=== PATIENT | female | born 1945 | race Caucasian/White ===

== ENCOUNTER 2022-10-07 10:56 | Outpatient (OUT) | payer MEDICARE, OTHER, SELFPAY ==
[2022-10-07 12:34] LABS: Alanine Aminotransferase 25 U/L (14-59); Albumin Globulin Ratio 0.9; Albumin Level 3.6 g/dL (3.4-5.0); Alkaline Phosphatase 81 U/L (46-116); Anion Gap 11.7; Aspartate Amino Transferase 23 U/L (15-37); Bilirubin Total 0.4 mg/dL (0.2-1.0); Calcium 9.3 mg/dL (8.5-10.1); Carbon Dioxide 26.5 mmol/L (21.0-32.0); Chloride 104 mmol/L (98-107); Estimated GFR (African America >60 (>=60); Estimated GFR (Non-African Ame 51 (>=60); Globulin 3.8 g/dL; Glucose 104 mg/dL (74-106); Potassium 4.2 mmol/L (3.5-5.1); Sodium 138 mmol/L (136-145); Total Protein 7.4 g/dL (6.4-8.2)
[2022-10-08 11:09] LABS: PTH, Intact 40 pg/mL (15-65)
== END 2022-10-07 10:57 ==
DX: R79.89 Other specified abnormal findings of blood chemistry (principal)
CPT/HCPCS: 36415; 80053; 83970

== ENCOUNTER 2022-11-16 15:54 | Outpatient (OUT) | payer MEDICARE, OTHER, SELFPAY | END 2022-11-16 15:55 | disposition home or self-care (01) | LOC: LAB 15:56 | PROVIDERS: Visit Provider Physician Assistant | DX: G25.81 Restless legs syndrome (principal) | CPT/HCPCS: 36415; 82728 ==

== ENCOUNTER 2022-12-29 11:58 | Outpatient (OUT) | payer MEDICARE, OTHER, SELFPAY ==
[2022-12-29 12:25] LABS: Basophils Absolute Auto 0.1 10^3/uL (0.0-0.1); Basophils Percent Auto 1.1 % (0.2-2.0); Eosinophils Absolute Auto 0.3 10^3/uL (0.0-0.7); Eosinophils Percent Auto 3.8 % (0.9-7.0); Hemoglobin 13.9 g/dL (12.0-16.0); Immature Granulocytes Abs Auto 0.01 10^3/uL (0.00-0.03); Immature Granulocytes Pct Auto 0.2 % (0.0-0.5); Lymphocytes Absolute Auto 1.4 10^3/uL (1.2-3.8); Lymphocytes Percent Auto 21.6 % (20.5-60.0); Mean Corpuscular HGB Conc 32.3 g/dL (29.9-35.2); Mean Corpuscular Hemoglobin 29.6 pg (26.7-34.0); Mean Corpuscular Volume 91.7 fL (81.0-99.0); Mean Platelet Volume 9.6 fL (9.5-13.5); Monocytes Absolute Auto 0.5 10^3/uL (0.3-0.8); Monocytes Percent Auto 7.9 % (1.7-12.0); Neutrophils Absolute Auto 4.3 10^3/uL (1.4-6.5); Neutrophils Percent Auto 65.4 % (43.0-75.0); Platelet Count 368 10^3/uL (150-450); Red Blood Count 4.69 10^6/uL (4.20-5.40); Red Cell Distribution Width 13.1 % (11.0-15.0); White Blood Count 6.6 10^3/uL (4.0-11.0)
[2022-12-29 13:08] LABS: Alanine Aminotransferase 26 U/L (14-59); Albumin Level 3.9 g/dL (3.4-5.0); Alkaline Phosphatase 75 U/L (46-116); Anion Gap 14.5; Aspartate Amino Transferase 21 U/L (15-37); BUN Creatinine Ratio 20.9; Bilirubin Total 0.5 mg/dL (0.2-1.0); Calcium 9.5 mg/dL (8.5-10.1); Carbon Dioxide 26.1 mmol/L (21.0-32.0); Chloride 102 mmol/L (98-107); Chol HDL Ratio 2.7; Cholesterol 165 mg/dL (<=200); Estimated GFR (African America 56 (>=60); Estimated GFR (Non-African Ame 46 (>=60); Globulin 3.9 g/dL; Glucose 98 mg/dL (74-106); HDL Cholesterol 62 mg/dL (40-60); Magnesium 1.7 mg/dL (1.8-2.4); Potassium 4.6 mmol/L (3.5-5.1); Sodium 138 mmol/L (136-145); Thyroid Stimulating Hormone 2.771 uIU/mL (0.358-3.740); Total Protein 7.8 g/dL (6.4-8.2); Triglycerides 147 mg/dL (<=150); VLDL CHOLESTEROL 29.4 mg/dL
[2022-12-29 13:37] LABS: Percent Iron Saturation 35.6 %
[2022-12-29 15:22] LABS: Free T4 0.85 ng/dL (0.76-1.46)
== END 2022-12-29 11:59 | disposition home or self-care (01) ==
LOC: LAB 12:02
DX: E78.00 Pure hypercholesterolemia, unspecified (principal); E03.9 Hypothyroidism, unspecified; K21.9 Gastro-esophageal reflux disease without esophagitis; G25.81 Restless legs syndrome
CPT/HCPCS: 36415; 80053; 80061; 82607; 82728; 82746; 83540; 83550; 83735; 84439; 84443; 85025

== ENCOUNTER 2023-01-16 15:02 | Outpatient (OUT) | payer MEDICARE, OTHER, SELFPAY ==
[2023-01-16 15:41] LABS: Anion Gap 10.8; BUN Creatinine Ratio 21.1; Calcium 9.5 mg/dL (8.5-10.1); Carbon Dioxide 26.9 mmol/L (21.0-32.0); Chloride 103 mmol/L (98-107); Estimated GFR (African America 56 (>=60); Estimated GFR (Non-African Ame 46 (>=60); Glucose 90 mg/dL (74-106); Potassium 4.7 mmol/L (3.5-5.1); Sodium 136 mmol/L (136-145)
[2023-01-17 15:08] LABS: Albumin 3.7 g/dL (2.9-4.4); Alpha-1-Globulin 0.2 g/dL (0.0-0.4); Alpha-2-Globulin 0.8 g/dL (0.4-1.0); Gamma Globulin 1.1 g/dL (0.4-1.8); Protein, Total 6.8 g/dL (6.0-8.5)
== END 2023-01-16 15:03 | disposition home or self-care (01) ==
DX: R79.89 Other specified abnormal findings of blood chemistry (principal)
CPT/HCPCS: 36415; 80048; 84155; 84165

== ENCOUNTER 2023-06-01 10:23 | Outpatient (OUT) | payer MEDICARE, OTHER, SELFPAY ==
[2023-06-01 11:44] LABS: Percent Iron Saturation 31.4 %
[2023-06-01 12:14] LABS: Free T4 0.93 ng/dL (0.76-1.46)
[2023-06-01 12:28] LABS: Anion Gap 13.7; BUN Creatinine Ratio 19.1; Calcium 9.3 mg/dL (8.5-10.1); Carbon Dioxide 27.6 mmol/L (21.0-32.0); Chloride 102 mmol/L (98-107); Estimated GFR (African America 59 (>=60); Estimated GFR (Non-African Ame 48 (>=60); Glucose 105 mg/dL (74-106); Potassium 4.3 mmol/L (3.5-5.1); Sodium 139 mmol/L (136-145); Thyroid Stimulating Hormone 3.974 uIU/mL (0.358-3.740)
[2023-06-01 12:40] LABS: Basophils Absolute Auto 0.1 10^3/uL (0.0-0.1); Basophils Percent Auto 1.2 % (0.2-2.0); Eosinophils Absolute Auto 0.2 10^3/uL (0.0-0.7); Eosinophils Percent Auto 3.5 % (0.9-7.0); Hematocrit 40.2 % (36.0-48.0); Hemoglobin 12.6 g/dL (12.0-16.0); Immature Granulocytes Abs Auto 0.01 10^3/uL (0.00-0.03); Immature Granulocytes Pct Auto 0.1 % (0.0-0.5); Lymphocytes Absolute Auto 1.2 10^3/uL (1.2-3.8); Mean Corpuscular HGB Conc 31.3 g/dL (29.9-35.2); Mean Corpuscular Hemoglobin 29.7 pg (26.7-34.0); Mean Corpuscular Volume 94.8 fL (81.0-99.0); Mean Platelet Volume 9.9 fL (9.5-13.5); Monocytes Absolute Auto 0.6 10^3/uL (0.3-0.8); Monocytes Percent Auto 8.2 % (1.7-12.0); Neutrophils Absolute Auto 4.8 10^3/uL (1.4-6.5); Platelet Count 351 10^3/uL (150-450); Red Blood Count 4.24 10^6/uL (4.20-5.40); Red Cell Distribution Width 13.1 % (11.0-15.0); White Blood Count 6.8 10^3/uL (4.0-11.0)
== END 2023-06-01 10:24 | disposition home or self-care (01) ==
DX: E03.9 Hypothyroidism, unspecified (principal); I10 Essential (primary) hypertension; K21.9 Gastro-esophageal reflux disease without esophagitis; G25.81 Restless legs syndrome
CPT/HCPCS: 36415; 80048; 82607; 82728; 82746; 83540; 83550; 84439; 84443; 85025

== ENCOUNTER 2024-01-03 09:35 | Outpatient (OUT) | payer MEDICARE, OTHER, SELFPAY ==
--- NOTE | 2024-01-03 | CT_ITS ---
The [address] [address] Patient Name: YENNY BESS MRN: [id number] date: 1945 Sex: F Assigned Patient Location: LAB Current Patient Location: Accession/Order Number: [id number] Exam Date: 01/03/2024 10:15 Report Date: 01/04/2024 00:10 At the request of: ADRIAN PURCELL Procedure: CT lumbar spine wo/w con EXAM: CT lumbar spine wo/w con HISTORY: LUMBAR RADICULOPATHY, METASTASIS TO SPINAL COLUMN COMPARISON: 08/11/2021. TECHNIQUE: Axial CT scans of the lumbar spine were obtained without and with IV contrast administration. MPR images were obtained. Dose reduction techniques were achieved by using: automated exposure control and/or adjustment of mA and /or kV according to patient size and/or use of iterative reconstruction technique.. FINDINGS: Lumbar levoscoliosis without segmental anomaly is unchanged, measuring 23 degrees. Decreased disc height with vacuum disc phenomena from L2 to S1 is secondary to disc degeneration. Mild discovertebral complexes from L2 to S1 without central spinal stenosis. Mild to moderate facet arthropathy from L3 to S1. No significant neural foraminal stenosis. Cerebral small radiolucencies in from L2 to L5 vertebral bodies are unchanged. Some of these radiolucencies have fatty density, likely representing focal areas of fatty marrow. A benign hemangioma in L3 vertebral body with coarse trabeculae is unchanged. SI joints appear unremarkable. The visualized retroperitoneum shows no adenopathy. CT/CT lumbar spine wo/w con IMPRESSION: Lumbar levoscoliosis without segmental anomaly is unchanged, measuring 23 degrees. Discovertebral degenerative changes from L2 to S1 without central spinal stenosis or significant neural foraminal stenosis. Mild to moderate facet arthropathy from L3 to S1. Several small radiolucencies from L2 to L5 are unchanged. I am doubtful that these radiolucencies result from metastatic disease. Electronically authenticated by: GERSON AKINS Date: 01/04/2024 00:10
[2024-01-03 10:23] LABS: Estimated GFR (African America 56 (>=60); Estimated GFR (Non-African Ame 46 (>=60)
== END 2024-01-03 09:36 | disposition home or self-care (01) ==
LOC: LAB 09:36
PROVIDERS: Visit Provider Nurse Practitioner Family
DX: M54.16 Radiculopathy, lumbar region (principal); C79.51 Secondary malignant neoplasm of bone; M51.36 Other intervertebral disc degeneration, lumbar region
CPT/HCPCS: 36415; 72133; 82565; 84520; Q9967

== ENCOUNTER 2024-01-22 12:16 | Outpatient (OUT) | payer MEDICARE, OTHER, SELFPAY ==
--- OUTSIDE RECORDS SUMMARY | 2024-01-22 12:39 | XMS_ITS | CCD ---
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 Normal 0.34-5.60 [facility] Comment on above: Performed By: #### 2 673667, 08127763, 6650840, 7687899 ####[facility] [address] [place] [address] eGFRon 03-26-2022 GFR/1.73 sq M.predicted among blacks MDRD (S/P/Bld) [Vol rate/Area] mL/min/{1.73_m2} Normal >=59 [facility] Comment on above: Order Comment: Order added by Discern Expert. Result Comment: eGFR is race adjusted. AA=. Performed By: #### 2 208623, [id number], 1692130, 1347087 ####[facility] [address] [place] [address] GFR/1.73 sq M.predicted among non-blacks MDRD (S/P/Bld) [Vol rate/Area] 54 mL/min/1.73 m2 Low >=59 [facility] Comment on above: Order Comment: Order added by Discern Expert. Result Comment: Patient Transport Officer quan kidney disease could be indicated at eGFR's of less than 60 mL/min/1.73m2. Kidney failure is indicated at less than 15 mL/min/1.73m2. Performed By: #### 2 473771, 94007847, 0010885, 0021527 ####[facility] [address] [place] [address] BMPon 03-25-2022 Anion gap [Moles/Vol] 11 mmol/L Normal 6-16 [facility] Comment on above: Performed By: #### 2 243300, [id number] ####[facility] [address] [place] [address] Calcium [Mass/Vol] 9.7 mg/dL Normal 8.9-11.1 [facility] Comment on above: Performed By: #### 2 243872, 68091105 ####[facility] [address] [place] [address] Chloride [Moles/Vol] 104 mmol/L Normal 101-111 [facility] Comment on above: Performed By: #### 2 261010, 19803903 ####[facility] [address] [place] [address] CO2 [Moles/Vol] 22 mmol/L Normal 21-31 [facility] Comment on above: Performed By: #### 2 826148, 58446770 ####[facility] [address] [place] [address] Creatinine [Mass/Vol] 0.9 mg/dL Normal 0.5-1.3 [facility] Comment on above: Performed By: #### 2 505730, [id number] ####[facility] [address] [place] [address] Glucose [Mass/Vol] 98 mg/dL Normal 55-199 [facility] Comment on above: Result Comment: If t his glucose result represents a fasting glucose, interpretation should refer to the following reference range: 55-99 mg/dL Performed By: #### 2 541095, [id number] ####[facility] [address] [place] [address] Potassium [Moles/Vol] 3.7 mmol/L Normal 3.5-5.3 [facility] Comment on above: Performed By: #### 2 336487, 56038049 ####[facility] [address] [place] [address] Sodium [Moles/Vol] 133 mmol/L Low 135-145 [facility] Comment on above: Performed By: #### 2 331401, 26045284 ####[facility] [address] [place] [address] Urea nitrogen [Mass/Vol] 20 mg/dL Normal 5-21 [facility] Comment on above: Performed By: #### 2 380074, 27866680 ####[facility] [address] [place] [address] Urea nitrogen/Creatinine [Mass ratio] 22 No Units High 10-20 [facility] Comment on above: Performed By: #### 2 723021, [id number] ####[facility] [address] [place] [address] C Blood Charcoalon Blood Culture Charcoal Normal [facility] Comment on above: Performed By: #### 1 1788100 ####[facility] [address] [place] [address] Blood Culture Charcoal Normal [facility] Comment on above: Performed By: #### 1 9552978 ####[facility] [address] [place] [address] C Urineon 03-25-2022 Bacteria identified Cx Nom (U) Normal [facility] Comment on above: Performed By: #### 2 264765, 65384294 ####[facility] [address] [place] [address] CHEMISTRYOrdered By: SYSTEM SYSTEM on 03-25-2022 Calcium [Mass/Vol] 9.7 mg/dL Normal 8.9 - 11. 1 mg/dL [facility] Remisol Creatinine [Mass/Vol] 0.9 mg/dL Normal 0.5 - 1.3 mg/dL [facility] Remisol GFR/1.73 sq M.predicted among blacks MDRD (S/P/Bld) [Vol rate/Area] mL/min/1.73 m2 Normal >=59mL/min/ 1.[address] [facility] Chem S GFR/1.73 sq M.predicted among non-blacks MDRD (S/P/Bld) [Vol rate/Area] mL/min/1.73 m2 Normal >=59mL/min/ 1.[address] [facility] Chem S Glucose [Mass/Vol] 98 mg/dL Normal 55 - 199 mg/dL [facility] Remisol Urea nitrogen [Mass/Vol] 20 mg/dL Normal 5 - 21 mg/dL [facility] Remisol Urea nitrogen/Creatinine [Mass ratio] 22 mg/mg High 10 - [address] [facility] Remisol CT Abdomen/Pelvis w/o Contra ston 03-25-2022 CT Abdomen/Pelvis w/o Contrast Normal [facility] CT Chest w/o Contraston 03-02 CT Chest w/o Contrast Normal [facility] Interdisciplinary Note - Pito e Manageron 03-25-2022 Interdisciplinary Note - Machine Heel Seat Laster Normal [facility] Comment on above: Result Comment: Elec tronically Signed By: Mirela Petersen\.br\Date and Time Signed: 03/25/22 12:34 EST Laboratory - Microbiology an d Antimicrobial susceptibilityOrdered By: Eunice Renee on 03-25-2022 Bacteria identified Respiratory culture Nom (Sput) 1+ Madeleine albicans Presumptive Scant growth of Normal upper respiratory yashira isolated [facility] Monitor Recordon 03-25-2022 Monitor Record [id number]#1.00CD :127 Normal [facility] No Panel InformationOrdered By: Eunice Renee on 03-25-2022 GS Rare epithelial cell s No organisms seen. [facility] Outside Recordson 03-25-2022 Outside Records [id number]#1.00CD :127 Normal [facility] Progress Note-Physicianon Progress Note-Physician Normal [facility] Comment on above: Result Comment: Elec tronically Signed By: Evan Stovall MD\.br\Date and Time Signed: 03/25/22 15:46 EST Progress Note-Physician Normal [facility] Comment on above: Result Comment: Elec tronically Signed By: Carol ORTIZ\.br\Date and Time Signed: 03/25/22 10:27 EST\.br\Electronically Co-Signed By: Saran Dodge MD\.br\Date and Time Co-Signed: 03/25/22 11:15 EST Progress Note-Physician Normal [facility] Comment on above: Result Comment: Elec tronically Signed By: Balbina RICE, Fahad\.br\Date and Time Signed: 03/25/22 07:27 EST Sodiumon 03-25-2022 Sodium [Moles/Vol] 135 mmol/L Normal 135-145 [facility] Comment on above: Performed By: #### 2 205409 ####[facility] [address] [place] [address] Sodium [Moles/Vol] 135 mmol/L Normal 135-145 [facility] Comment on above: Performed By: #### 2 448055 ####[facility] [address] [place] [address] Sodium [Moles/Vol] 132 mmol/L Low 135-145 [facility] Comment on above: Performed By: #### 2 471394 ####[facility] [address] [place] [address] U Legi Agon 03-25-2022 L. pneumophila 1 Ag IA Ql (U) Negative Invalid Interpretation Code Negative [facility] Comment on above: Result Comment: Pres umptive negative for L. pneumophila serogroup 1 antigen in urine,suggesting no recent or current infection. Legionnaires' diseasecannot be ruled out since other serogroups and species may also causedisease.Performed at: [facility] [id number] MD Guevara Lewis Performed By: #### 2 840423 ####[facility] [address] [place] [address] US Renalon 03-25-2022 US Renal Normal [facility] eGFRon 03-25-2022 GFR/1.73 sq M.predicted among blacks MDRD (S/P/Bld) [Vol rate/Area] mL/min/{1.73_m2} Normal >=59 [facility] Comment on above: Order Comment: Order added by Discern Expert. Result Comment: eGFR is race adjusted. AA=. Performed By: #### 2 322774, [id number] ####[facility] [address] [place] [address] GFR/1.73 sq M.predicted among non-blacks MDRD (S/P/Bld) [Vol rate/Area] mL/min/{1.73_m2} Normal >=59 [facility] Comment on above: Order Comment: Order added by Discern Expert. Result Comment: Patient Transport Officer quan kidney disease could be indicated at eGFR's of less than 60 mL/min/1.73m2. Kidney failure is indicated at less than 15 mL/min/1.73m2. Performed By: #### 2 568167, [id number] ####[facility] [address] [place] [address] Auto Diffon 03-24-2022 Basophils/100 WBC (Bld) 0.3 % Normal 0.0-2.0 [facility] Comment on above: Order Comment: Order Added by Discern Expert. Performed By: #### 2 357442, 87555575, 9857263, 9023495 ####[facility] [address] [place] [address] Basophils/Leukocytes Auto (Bld) [Pure # fraction] 0.0 E9/L Normal 0.0-0.2 [facility] Comment on above: Order Comment: Order Added by Discern Expert. Performed By: #### 2 454960, 79161311, 3445643, 0827820 ####[address] [place] [place] [address] Eosinophils/100 WBC (Bld) 0.5 % Normal 0.0-8.0 [facility] Comment on above: Order Comment: Order Added by Discern Expert. Performed By: #### 2 743046, 13595612, 0891521, 7975892 ####[facility] [address] [place] [address] Eosinophils/Leukocytes Auto (Bld) [Pure # fraction] 0.0 E9/L Normal 0.0-0.5 [facility] Comment on above: Order Comment: Order Added by Discern Expert. Performed By: #### 2 185248, 15195809, 8969978, 0896469 ####[facility] [address] [place] [address] Lymphocytes/100 WBC (Bld) 5.3 % Low 14.0-50.0 [facility] Comment on above: Order Comment: Order Added by Discern Expert. Performed By: #### 2 078250, 97758601, 1044319, 8541145 ####[address] [place] [address] Lymphocytes/Leukocytes Auto (Bld) [Pure # fraction] 0.5 E9/L Low 1.0-4.0 [facility] Comment on above: Order Comment: Order Added by Discern Expert. Performed By: #### 2 719606, 62429164, 4068414, 1065198 ####[address] [place] [address] Monocytes/100 WBC (Bld) 8.5 % Normal 4.0-14.0 [facility] Comment on above: Order Comment: Order Added by Discern Expert. Performed By: #### 2 717028, 43678835, 8097116, 2769113 ####[facility] [address] [place] [address] Monocytes/Leukocytes Auto (Bld) [Pure # fraction] 0.8 E9/L Normal 0.2-1.0 [facility] Comment on above: Order Comment: Order Added by Discern Expert. Performed By: #### 2 248771, 05177034, 6674793, 1626490 ####[facility] [address] [place] [address] Neutrophils/100 WBC (Bld) 85.4 % High 36.0-75.0 [facility] Comment on above: Order Comment: Order Added by Discern Expert. Performed By: #### 2 271496, 37196327, 3050830, 5722403 ####[facility] [address] [place] [address] Neutrophils/Leukocytes Auto (Bld) [Pure # fraction] 8.5 E9/L High 2.0-7.5 [facility] Comment on above: Order Comment: Order Added by Discern Expert. Performed By: #### 2 665742, 84208145, 3615904, 8510321 ####[facility] [address] [facility] [place] [place] [address] BMPon 03-24-2022 Anion gap [Moles/Vol] 9 mmol/L Normal 6-16 [facility] Comment on above: Performed By: #### 2 379384, 83748596, 2729968, 8149557 ####[facility] [address] [place] [address] Calcium [Mass/Vol] 9.2 mg/dL Normal 8.9-11.1 [facility] Comment on above: Performed By: #### 2 652923, 55238811, 4009612, 7863329 ####[facility] [address] [place] [address] Chloride [Moles/Vol] 106 mmol/L Normal 101-111 [facility] Comment on above: Performed By: #### 2 884105, 41561435, 3834954, 3274940 ####[facility] [address] [place] [address] CO2 [Moles/Vol] 21 mmol/L Normal 21-31 [facility] Comment on above: Performed By: #### 2 449629, 92013936, 0341895, 4037055 ####[facility] [address] [place] [address] Creatinine [Mass/Vol] 1.0 mg/dL Normal 0.5-1.3 [facility] Comment on above: Performed By: #### 2 459778, 97978288, 9248184, 2712360 ####[facility] [address] [place] [address] Glucose [Mass/Vol] 95 mg/dL Normal 55-199 [facility] Comment on above: Result Comment: If t his glucose result represents a fasting glucose, interpretation should refer to the following reference range: 55-99 mg/dL Performed By: #### 2 833260, 77225920, 5041430, 9448359 ####[facility] [address] [place] [address] Potassium [Moles/Vol] 3.9 mmol/L Normal 3.5-5.3 [facility] Comment on above: Performed By: #### 2 778443, 56951327, 2634460, 7364122 ####[facility] [address] [place] [address] Sodium [Moles/Vol] 132 mmol/L Low 135-145 [facility] Comment on above: Performed By: #### 2 005280, 84399525, 0593733, 4250056 ####[facility] [address] [place] [address] Urea nitrogen [Mass/Vol] 15 mg/dL Normal 5-21 [facility] Comment on above: Performed By: #### 2 896258, 13824710, 3881342, 1177276 ####[facility] [address] [place] [address] Urea nitrogen/Creatinine [Mass ratio] 15 No Units Normal 10-20 [facility] Comment on above: Performed By: #### 2 064157, 44988485, 4518954, 7868632 ####[facility] [address] [place] [address] CBC w/ Auto Diffon 2 Erythrocyte distribution width (RBC) [Ratio] 13.6 % Normal 10.9-14.2 [facility] Comment on above: Performed By: #### 2 306048, 90300470, 0462331, 7721621 ####[facility] [address] [place] [address] Hematocrit (Bld) [Volume fraction] 35.8 % Normal 34.0-46.0 [facility] Comment on above: Performed By: #### 2 122875, 04501590, 3850666, 9328323 ####[facility] [address] [place] [address] Hemoglobin (Bld) [Mass/Vol] 12.2 g/dL Normal 12.0-16.0 [facility] Comment on above: Performed By: #### 2 319334, 27297083, 1439632, 6729260 ####[facility] [address] [place] [address] MCH (RBC) [Entitic mass] 30.3 pg Normal 27.0-34.0 [facility] Comment on above: Performed By: #### 2 831651, 95822735, 9247389, 4705382 ####[facility] [address] [place] [address] MCHC (RBC) [Mass/Vol] 34.1 g/dL Normal 31.4-36.0 [facility] Comment on above: Performed By: #### 2 365620, 80576922, 6447178, 8341363 ####[place] [address] MCV (RBC) [Entitic vol] 89.0 fL Normal 80.0-100.0 [facility] Comment on above: Performed By: #### 2 264286, 45465980, 8594159, 7327994 ####[address] [address] Platelet mean volume (Bld) [Entitic vol] 8.1 fL Normal 6.4-10.8 [facility] Comment on above: Performed By: #### 2 474795, 82512153, 7374856, 8731615 ####[address] [address] Platelets (Bld) [#/Vol] 180.0 E9/L Normal 150.0-500.0 [facility] Comment on above: Performed By: #### 2 657631, 78351109, 9293129, 9088286 ####[address] [address] RBC (Bld) [#/Vol] 4.0 E12/L Low 4.3-5.9 [facility] Comment on above: Performed By: #### 2 994713, 66381548, 5198497, 6188595 ####[facility] [address] [place] [address] WBC corrected for nucl RBC Auto (Bld) [#/Vol] 9.9 E9/L Normal 4.0-11.0 [facility] Comment on above: Performed By: #### 2 303477, 96469781, 9919201, 4141317 ####[facility] [address] [place] [address] HEMATOLOGYOrdered By: SYSTEM SYSTEM on 03-24-2022 Basophils/100 WBC (Bld) 0.3 % Normal 0.0 - 2.0 % [facility]eAuto[facility] Basophils/Leukocytes Auto (Bld) [Pure # fraction] 0.0 E9/L Normal 0.0 - 0.2 E9/L [facility] Eosinophils/100 WBC (Bld) 0.5 % Normal 0.0 - 8.0 % [facility] Eosinophils/Leukocytes Auto (Bld) [Pure # fraction] 0.0 E9/L Normal 0.0 - 0.5 E9/L [facility] Lymphocytes/100 WBC (Bld) 5.3 % Low 14.0 - 50.0 % [facility] Lymphocytes/Leukocytes Auto (Bld) [Pure # fraction] 0.5 E9/L Low 1.0 - 4.0 E9/L [facility] Monocytes/100 WBC (Bld) 8.5 % Normal 4.0 - 14.0 % [facility] Monocytes/Leukocytes Auto (Bld) [Pure # fraction] 0.8 E9/L Normal 0.2 - 1.0 E9/L [facility] Neutrophils/100 WBC (Bld) 85.4 % High 36.0 - 75.0 % [facility] Neutrophils/Leukocytes Auto (Bld) [Pure # fraction] 8.5 E9/L High 2.0 - 7.5 E9/L [facility] HEMATOLOGYOrdered By: Kelsey redding on 03-24-2022 Erythrocyte distribution width (RBC) [Ratio] 13.6 % Normal 10.9 - 14.2 % [facility] Hematocrit (Bld) [Volume fraction] 35.8 % Normal 34.0 - 46.0 % [facility] Hemoglobin (Bld) [Mass/Vol] 12.2 g/dL Normal 12.0 - 16.0 gm/dL [facility] MCH (RBC) [Entitic mass] 30.3 pg Normal 27.0 - 34.0 pg [facility] MCHC (RBC) [Mass/Vol] 34.1 g/dL Normal 31.4 - 36.0 gm/dL [facility] MCV (RBC) [Entitic vol] 89.0 fL Normal 80.0 - 100.0 fL [facility] Platelet mean volume (Bld) [Entitic vol] 8.1 fL Normal 6.4 - 10.8 fL [facility] Platelets (Bld) [#/Vol] 180.0 E9/L Normal 150. 0 - 500.0 E9/L [facility] RBC (Bld) [#/Vol] 4.0 E12/L Low 4.3 - 5.9 E12/L [facility] WBC corrected for nucl RBC Auto (Bld) [#/Vol] 9.9 E9/L Normal 4.0 - 11.0 E9/L [facility] No Panel InformationOrdered By: ANGPROCESSSERVER MICROBIOLOGY on 03-24-2022 Blood Culture Charcoal No growth at 4 da ys. Final to follow at 7 days. [facility] Progress Note-Physicianon Progress Note-Physician Normal [facility] Comment on above: Result Comment: Elec tronically Signed By: Lita RICE, Wilfred Calvo\.br\Date and Time Signed: 03/24/22 10:36 EST Sodiumon 03-24-2022 Sodium [Moles/Vol] 133 mmol/L Low 135-145 [facility] Comment on above: Performed By: #### 2 466677 ####[facility] [address] [place] [address] eGFRon 03-24-2022 GFR/1.73 sq M.predicted among blacks MDRD (S/P/Bld) [Vol rate/Area] mL/min/{1.73_m2} Normal >=59 [facility] Comment on above: Order Comment: Order added by Discern Expert. Result Comment: eGFR is race adjusted. AA=. Performed By: #### 2 505534, 00170893, 3766501, 0266459 ####[facility] [address] [place] [address] GFR/1.73 sq M.predicted among non-blacks MDRD (S/P/Bld) [Vol rate/Area] 54 mL/min/1.73 m2 Low >=59 [facility] Comment on above: Order Comment: Order added by Discern Expert. Result Comment: Patient Transport Officer quan kidney disease could be indicated at eGFR's of less than 60 mL/min/1.73m2. Kidney failure is indicated at less than 15 mL/min/1.73m2. Performed By: #### 2 820284, 89255290, 1271006, 5865092 ####[facility] [address] [place] [address] Auto Diffon 03-23-2022 Basophils/100 WBC (Bld) 0.9 % Normal 0.0-2.0 [facility] Comment on above: Order Comment: Order Added by Robert Expert. Performed By: #### 2 219852, 27044975, 4518676, [id number], 1151818, 1448905 ####[facility] [address] [place] [address] Basophils/Leukocytes Auto (Bld) [Pure # fraction] 0.1 E9/L Normal 0.0-0.2 [facility] Comment on above: Order Comment: Order Added by Discern Expert. Performed By: #### 2 996656, 77222585, 4102469, [id number], 9586775, 3584521 ####[facility] [address] [place] [address] Eosinophils/100 WBC (Bld) 0.1 % Normal 0.0-8.0 [facility] Comment on above: Order Comment: Order Added by Robert Expert. Performed By: #### 2 032413, 82766951, 3057230, 5539778344, 8642710, 1066794 ####[address] [place] [address] Eosinophils/Leukocytes Auto (Bld) [Pure # fraction] 0.0 E9/L Normal 0.0-0.5 [facility] Comment on above: Order Comment: Order Added by Discern Expert. Performed By: #### 2 235728, 34809623, 9792471, 4567688678, 3464909, 6589057 ####[address] [address] Lymphocytes/100 WBC (Bld) 4.7 % Low 14.0-50.0 [facility] Comment on above: Order Comment: Order Added by Discern Expert. Performed By: #### 2 913107, 97165288, 6888498, 4828367434, 4085175, 7787195 ####[address] [address] Lymphocytes/Leukocytes Auto (Bld) [Pure # fraction] 0.4 E9/L Low 1.0-4.0 [facility] Comment on above: Order Comment: Order Added by Discern Expert. Performed By: #### 2 737921, 21895567, 1131381, 6237093056, 3376985, 2759448 ####[address] [address] Monocytes/100 WBC (Bld) 7.2 % Normal 4.0-14.0 [facility] Comment on above: Order Comment: Order Added by Discern Expert. Performed By: #### 2 645941, 59887024, 9917341, 7148272985, 8178293, 3073949 ####[address] [address] Monocytes/Leukocytes Auto (Bld) [Pure # fraction] 0.6 E9/L Normal 0.2-1.0 [facility] Comment on above: Order Comment: Order Added by Discern Expert. Performed By: #### 2 930265, 12402483, 7620092, 7120062907, 7910202, 7403193 ####[address] [place] [address] Neutrophils/100 WBC (Bld) 87.1 % High 36.0-75.0 [facility] Comment on above: Order Comment: Order Added by Discern Expert. Performed By: #### 2 070599, 20680799, 9076973, 2789789905, 7419599, 8649397 ####[address] [address] Neutrophils/Leukocytes Auto (Bld) [Pure # fraction] 7.0 E9/L Normal 2.0-7.5 [facility] Comment on above: Order Comment: Order Added by Discern Expert. Performed By: #### 2 957111, 89419447, 9816552, 9164727168, 5809649, 8492983 ####[address] [address] Basophils/100 WBC (Bld) 0.5 % Normal 0.0-2.0 [facility] Comment on above: Order Comment: Order Added by Discern Expert. Performed By: #### 2 902777, 7173634, 88750034, 9955008, 22728363, 5253927, 1203419 ####[address] [address] Basophils/Leukocytes Auto (Bld) [Pure # fraction] 0.0 E9/L Normal 0.0-0.2 [facility] Comment on above: Order Comment: Order Added by Discern Expert. Performed By: #### 2 627224, 7785151, 99764934, 7429746, 85109095, 8644392, 8861145 ####[address] [address] Eosinophils/100 WBC (Bld) 0.3 % Normal 0.0-8.0 [facility] Comment on above: Order Comment: Order Added by Discern Expert. Performed By: #### 2 286426, 0333967, 81964596, 5755811, 79998396, 0319815, 2344171 ####[address] [place] [address] Eosinophils/Leukocytes Auto (Bld) [Pure # fraction] 0.0 E9/L Normal 0.0-0.5 [facility] Comment on above: Order Comment: Order Added by Discern Expert. Performed By: #### 2 418209, 4567166, 35794870, 0681513, 42878703, 8942694, 9097224 ####[address] [address] Lymphocytes/100 WBC (Bld) 3.6 % Low 14.0-50.0 [facility] Comment on above: Order Comment: Order Added by Discern Expert. Performed By: #### 2 633896, 2578987, 51756468, 0594223, 51952816, 6710561, 7193743 ####[address] [address] Lymphocytes/Leukocytes Auto (Bld) [Pure # fraction] 0.3 E9/L Low 1.0-4.0 [facility] Comment on above: Order Comment: Order Added by Discern Expert. Performed By: #### 2 085967, 5125576, 28346976, 3659610, 79327823, 9672140, 5462986 ####[address] [address] Monocytes/100 WBC (Bld) 6.2 % Normal 4.0-14.0 [facility] Comment on above: Order Comment: Order Added by Discern Expert. Performed By: #### 2 847649, 0311054, 90683450, 7398455, 53184917, 3487129, 3287039 ####[address] [place] [address] Monocytes/Leukocytes Auto (Bld) [Pure # fraction] 0.5 E9/L Normal 0.2-1.0 [facility] Comment on above: Order Comment: Order Added by Robert Expert. Performed By: #### 2 604271, 6674203, 90834031, 2733708, 59618751, 5741643, 4563039 ####[facility] [address] [place] [address] Neutrophils/100 WBC (Bld) 89.4 % High 36.0-75.0 [facility] Comment on above: Order Comment: Order Added by Discern Expert. Performed By: #### 2 270233, 0358857, 42845876, 6379170, 65891379, 0170989, 5918539 ####[facility] [address] [place] [address] Neutrophils/Leukocytes Auto (Bld) [Pure # fraction] 7.9 E9/L High 2.0-7.5 [facility] Comment on above: Order Comment: Order Added by Discern Expert. Performed By: #### 2 721137, 2711339, 61409795, 1541799, 91338515, 8986756, 2082717 ####[facility] [address] [place] [address] BMPon 03-23-2022 Anion gap [Moles/Vol] 7 mmol/L Normal 6-16 [facility] Comment on above: Performed By: #### 2 838893, 39444317, 8289779, 2103628550, 7588992, 5808711 ####[facility] [address] [place] [address] Calcium [Mass/Vol] 9.0 mg/dL Normal 8.9-11.1 [facility] Comment on above: Performed By: #### 2 415785, 88971691, 6194568, 1559135399, 6300170, 9347288 ####[facility] [address] [place] [address] Chloride [Moles/Vol] 105 mmol/L Normal 101-111 [facility] Comment on above: Performed By: #### 2 029315, 78432371, 4025680, 4755256650, 1823880, 8580146 ####[facility] [address] [place] [address] CO2 [Moles/Vol] 21 mmol/L Normal 21-31 [facility] Comment on above: Performed By: #### 2 307654, 70725307, 3984762, 1032568533, 6521243, 0396143 ####[facility] [address] [place] [address] Creatinine [Mass/Vol] 1.0 mg/dL Normal 0.5-1.3 [facility] Comment on above: Performed By: #### 2 807884, 74067262, 4143410, 9457702177, 9428730, 5007933 ####[facility] [address] [place] [address] Glucose [Mass/Vol] 100 mg/dL Normal 55-199 [facility] Comment on above: Result Comment: If t his glucose result represents a fasting glucose, interpretation should refer to the following reference range: 55-99 mg/dL Performed By: #### 2 338647, 53682468, 0779413, 2132066539, 9540350, 4314376 ####[facility] [address] [place] [address] Potassium [Moles/Vol] 3.7 mmol/L Normal 3.5-5.3 [facility] Comment on above: Performed By: #### 2 322352, 21951001, 6482897, 3235247316, 9018360, 9056961 ####[facility] [address] [place] [address] Sodium [Moles/Vol] 129 mmol/L Low 135-145 [facility] Comment on above: Performed By: #### 2 918066, 82110739, 0171295, 1346938604, 9025962, 5972135 ####[facility] [address] [place] [address] Urea nitrogen [Mass/Vol] 15 mg/dL Normal 5-21 [facility] Comment on above: Performed By: #### 2 948289, 61084016, 6939416, 4761119641, 2692984, 3688115 ####[facility] [address] [place] [address] Urea nitrogen/Creatinine [Mass ratio] 15 No Units Normal 10-20 [facility] Comment on above: Performed By: #### 2 378506, 63102930, 6565391, 0724460812, 6340288, 1580268 ####[facility] [address] [place] [address] CBC w/ Auto Diffon Erythrocyte distribution width (RBC) [Ratio] 13.8 % Normal 10.9-14.2 [facility] Comment on above: Performed By: #### 2 888486, 85531619, 8940871, 6911474373, 8650821, 0299206 ####[address] [place] [address] Hematocrit (Bld) [Volume fraction] 36.5 % Normal 34.0-46.0 [facility] Comment on above: Performed By: #### 2 704059, 12618402, 3535256, 6925068944, 5850798, 8517673 ####[facility] [address] [place] [address] Hemoglobin (Bld) [Mass/Vol] 12.5 g/dL Normal 12.0-16.0 [facility] Comment on above: Performed By: #### 2 846749, 54189703, 9666088, 4819493680, 4222321, 7757044 ####[address] [place] [address] MCH (RBC) [Entitic mass] 29.7 pg Normal 27.0-34.0 [facility] Comment on above: Performed By: #### 2 975867, 60354274, 2407323, 3531526793, 3988653, 6749587 ####[address] [place] [address] MCHC (RBC) [Mass/Vol] 34.2 g/dL Normal 31.4-36.0 [facility] Comment on above: Performed By: #### 2 349385, 42072413, 3943151, 7374191115, 7298162, 5339597 ####[facility] [address] [place] [address] MCV (RBC) [Entitic vol] 86.7 fL Normal 80.0-100.0 [facility] Comment on above: Performed By: #### 2 734272, 57447285, 6379934, 8692897933, 3730967, 1458000 ####[facility] [address] [place] [address] Platelet mean volume (Bld) [Entitic vol] 7.9 fL Normal 6.4-10.8 [facility] Comment on above: Performed By: #### 2 653817, 25925722, 7103438, 1882470968, 9278197, 7808627 ####[address] [address] Platelets (Bld) [#/Vol] 193.0 E9/L Normal 150.0-500.0 [facility] Comment on above: Performed By: #### 2 901706, 68648287, 2115084, 2297258421, 0624093, 7227196 ####[address] [address] RBC (Bld) [#/Vol] 4.2 E12/L Low 4.3-5.9 [facility] Comment on above: Performed By: #### 2 017838, 78312971, 0662965, 0012254194, 4613808, 8183548 ####[address] [place] [address] WBC corrected for nucl RBC Auto (Bld) [#/Vol] 8.0 E9/L Normal 4.0-11.0 [facility] Comment on above: Performed By: #### 2 536975, 53188898, 8581139, 6687855235, 9032433, 0793803 ####[address] [place] [address] Erythrocyte distribution width (RBC) [Ratio] 13.4 % Normal 10.9-14.2 [facility] Comment on above: Performed By: #### 2 612660, 4316955, 89279016, 5373100, 13958992, 0375805, 6056464 ####[facility] [address] [place] [address] Hematocrit (Bld) [Volume fraction] 36.6 % Normal 34.0-46.0 [facility] Comment on above: Performed By: #### 2 515454, 3109797, 20992616, 9773202, 08014376, 1924350, 6657944 ####[facility] [address] [place] [address] Hemoglobin (Bld) [Mass/Vol] 12.5 g/dL Normal 12.0-16.0 [facility] Comment on above: Performed By: #### 2 499483, 2776791, 00848869, 6421971, 13478433, 6140060, 8369068 ####[facility] [address] [place] [address] MCH (RBC) [Entitic mass] 29.5 pg Normal 27.0-34.0 [facility] Comment on above: Performed By: #### 2 781207, 7393624, 57081749, 8060135, 32974408, 7541370, 9298324 ####[address] [address] MCHC (RBC) [Mass/Vol] 34.1 g/dL Normal 31.4-36.0 [facility] Comment on above: Performed By: #### 2 698481, 6976070, 11789901, 7278331, 42055198, 7178977, 6177770 ####[address] [address] MCV (RBC) [Entitic vol] 86.5 fL Normal 80.0-100.0 [facility] Comment on above: Performed By: #### 2 963570, 2219109, 33676649, 4258412, 59157143, 3353668, 6843011 ####[facility] [address] [place] [address] Platelet mean volume (Bld) [Entitic vol] 7.5 fL Normal 6.4-10.8 [facility] Comment on above: Performed By: #### 2 600376, 2291774, 40050192, 9027799, 65877268, 6522439, 0261834 ####[address] [place] [address] Platelets (Bld) [#/Vol] 191.0 E9/L Normal 150.0-500.0 [facility] Comment on above: Performed By: #### 2 306129, 4501604, 59511972, 0003000, 78752297, 2827534, 6918031 ####[address] [address] RBC (Bld) [#/Vol] 4.2 E12/L Low 4.3-5.9 [facility] Comment on above: Performed By: #### 2 910269, 5523021, 76639692, 2274045, 16826630, 6354367, 3421934 ####[address] [address] WBC corrected for nucl RBC Auto (Bld) [#/Vol] 8.8 E9/L Normal 4.0-11.0 [facility] Comment on above: Performed By: #### 2 078180, 4831946, 50248717, 6815972, 84373608, 7395187, 0670974 ####[address] [place] [address] CEFTRIAXONE:SUSC:PT:ISOLATE: ORDQN:MICOrdered By: Lisha Tavares on 03-23-2022 cefTRIAXone QUOC [Susc] Streptococcus pk ivarius In 2 of 2 blood culture bottles drawn. Isolated from aerobic and anaerobic bottles Preliminary gram stain result of gram positive cocci in chains Result called to Dr. Mortensen by [facility] and results read back for confirmation on 03/23/2022 16:10:37 [facility] CHEMISTRYOrdered By: SYSTEM SYSTEM on 03-23-2022 Procalcitonin 1.08 ng/mL High 0.00 - 0.50 ng/mL [facility] Remisol Troponin I.cardiac [Mass/Vol] 30.40 pg/mL High 10.10 - 27.10 pg/mL [facility] Remisol Albumin [Mass/Vol] 3.5 g/dL Normal 3.3 - 5.0 gm/dL [facility] Remisol Albumin/Globulin [Mass ratio] 1.1 {ratio} Normal 1.1 - 2.2 [facility] Remisol ALP [Catalytic activity/Vol] 67 [iU]/d Normal 21 - 98 Int._Unit/L [facility] Remisol ALT No additional P-5'-P [Catalytic activity/Vol] 33 [iU]/d Normal 6 - 46 Int._Unit/L [facility] Remisol AST [Catalytic activity/Vol] 38 [iU]/d Normal 5 - 43 Int._Unit/L [facility] Remisol Bilirubin [Mass/Vol] 1.3 mg/dL High 0.0 - 1 .1 mg/dL [facility] Remisol Globulin (S) [Mass/Vol] 3.3 g/dL Normal 1.4 - 4.0 gm/dL [facility] Remisol Lactate [Mass/Vol] 0.8 mmol/L Normal 0.5 - 2.2 mmol/L [facility] Remisol Protein [Mass/Vol] 6.8 g/dL Normal 6.0 - 7.8 gm/dL [facility] Remisol Troponin I.cardiac [Mass/Vol] 31.00 pg/mL High 10.10 - 27.10 pg/mL [facility] Remisol CHEMISTRYOrdered By: Lab ROP User on 03-23-2022 Glucose [Mass/Vol] 112 mg/dL High 55 - 99 mg/dL [facility] POC Subsection Comment on above: Result Comment: Dmitry alvarez RN/ POC Device SN [id number] Invalid Interpretation Code FT POC Subsection POC User ID [id number] Invalid Interpretation Code FT POC Subsection POC Username MILDRED VIZCARRA Invalid Interpretation Code FT POC Subsection CMPon 03-23-2022 Albumin [Mass/Vol] 3.5 g/dL Normal 3.3-5.0 [facility] Comment on above: Performed By: #### 2 159552, 2545861, 84074405, 5087614, 40658417, 0115338, 3397241 ####[address] [place] [address] Albumin/Globulin (S) [Mass conc ratio] 1.1 Normal 1.1-2.2 [facility] Comment on above: Performed By: #### 2 809264, 4833093, 51954742, 7676071, 02522769, 7317423, 2902701 ####[address] [address] ALP [Catalytic activity/Vol] 67 Int._Unit/L Normal 21-98 [facility] Comment on above: Performed By: #### 2 013043, 9917501, 59574766, 1974949, 25199332, 3943525, 5448846 ####[address] [address] ALT No additional P-5'-P [Catalytic activity/Vol] 33 Int._Unit/L Normal 6-46 [facility] Comment on above: Performed By: #### 2 966536, 2371766, 98882354, 8422942, 30120740, 0337347, 2067831 ####[address] [address] AST [Catalytic activity/Vol] 38 Int._Unit/L Normal 5-43 [facility] Comment on above: Performed By: #### 2 934615, 3415141, 04648028, 9891083, 78944532, 5622931, 0182914 ####[address] [place] [address] Bilirubin [Mass/Vol] 1.3 mg/dL High 0.0-1.1 [facility] Comment on above: Performed By: #### 2 219294, 5074644, 17586650, 4950817, 84901278, 5164134, 4438301 ####[address] [place] [address] Creatinine [Mass/Vol] 0.9 mg/dL Normal 0.5-1.3 [facility] Comment on above: Performed By: #### 2 513205, 6596399, 11932663, 5151127, 83013123, 4114129, 7422885 ####[facility] [address] [place] [address] Globulin (S) [Mass/Vol] 3.3 g/dL Normal 1.4-4.0 [facility] Comment on above: Performed By: #### 2 840734, 3985637, 91781985, 9274688, 97898874, 2866840, 3922267 ####[facility] [address] [place] [address] Protein [Mass/Vol] 6.8 g/dL Normal 6.0-7.8 [facility] Comment on above: Performed By: #### 2 457545, 8883408, 49917628, 1663552, 59705262, 4749715, 2136943 ####[facility] [address] [place] [address] Urea nitrogen [Mass/Vol] 16 mg/dL Normal 5-21 [facility] Comment on above: Performed By: #### 2 074796, 1296235, 88153651, 2156300, 89607135, 9059673, 5702596 ####[facility] [address] [place] [address] Urea nitrogen/Creatinine [Mass ratio] 18 No Units Normal 10-20 [facility] Comment on above: Performed By: #### 2 750093, 9089562, 08118250, 8932137, 50738271, 4051060, 7427279 ####[facility] [address] [place] [address] Anion gap [Moles/Vol] 13 mmol/L Normal 6-16 [facility] Comment on above: Performed By: #### 2 773821, 6789925, 62567493, 3649311, 73543726, 3807861, 4323831 ####[facility] [address] [place] [address] Calcium [Mass/Vol] 9.1 mg/dL Normal 8.9-11.1 [facility] Comment on above: Performed By: #### 2 908391, 9992640, 79470234, 8573672, 54632598, 1832398, 4020897 ####[facility] [address] [place] [address] Chloride [Moles/Vol] 99 mmol/L Low 101-111 [facility] Comment on above: Performed By: #### 2 186271, 9161418, 10493203, 5335906, 03834562, 0275393, 6581008 ####[facility] [address] [place] [address] CO2 [Moles/Vol] 21 mmol/L Normal 21-31 [facility] Comment on above: Performed By: #### 2 734981, 0119657, 06795946, 9988285, 28065249, 8331055, 3163659 ####[facility] [address] [place] [address] Glucose [Mass/Vol] 113 mg/dL Normal 55-199 [facility] Comment on above: Result Comment: If t his glucose result represents a fasting glucose, interpretation should refer to the following reference range: 55-99 mg/dL Performed By: #### 2 609796, 0842407, 51884979, 3944100, 06545640, 8273050, 3560255 ####[facility] [address] [place] [address] Potassium [Moles/Vol] 3.5 mmol/L Normal 3.5-5.3 [facility] Comment on above: Performed By: #### 2 267653, 7160004, 01333410, 1412840, 43732306, 4728095, 6967877 ####[facility] [address] [place] [address] Sodium [Moles/Vol] 129 mmol/L Low 135-145 [facility] Comment on above: Performed By: #### 2 885370, 1148971, 97681882, 0671058, 83832297, 0392766, 8240027 ####[facility] [address] [place] [address] COAGULATIONOrdered By: Meli Potter on 03-23-2022 aPTT Coag (PPP) [Time] 34.5 s Normal 25.1 - 36.5 second(s) [facility] Auto Coag INR Coag (PPP) [Relative time] 2.7 {INR} Invalid Interpretation Code [facility] Auto Coag PT Coag (PPP) [Time] 31.2 s High 9.4 - 1 2.5 second(s) [facility] Auto Coag Capillary Glucose POCon 03-02 Glucose [Mass/Vol] 112 mg/dL High 55-99 [facility] Comment on above: Result Comment: Dmitry alvarez RN/ Performed By: #### 2 [id number] ####[facility] [address] [place] [address] Cardiology Progress Noteon 1 05-23-2021 Cardiology Progress Note Normal [facility] Comment on above: Result Comment: Elec tronically Signed By: Ingrid HAYWARD CNP\.br\Date and Time Signed: 03/23/22 15:44 EST\.br\Electronically Co-Signed By: Wilfred London MD\.br\Date and Time Co-Signed: 03/23/22 17:08 EST Consent for Treatmenton 03-02 Consent for Treatment [id number]: 127 Normal [facility] Consultation Noteon 03-23-20 Consultation Note Normal [facility] Comment on above: Result Comment: Elec tronically Signed By: Lita RICE, Wilfred Calvo\.br\Date and Time Signed: 03/23/22 17:07 EST Consultation Note Normal [facility] Comment on above: Result Comment: Elec tronically Signed By: Evan Stovall MD\.br\Date and Time Signed: 03/23/22 13:20 EST ED Clinical Summaryon 2021 ED Clinical Summary Normal [facility] ED Note-Nursingon 03-23-2022 ED Note-Nursing Normal [facility] ED Note-Physicianon 03-23-20 ED Note-Physician Normal [facility] Comment on above: Result Comment: Elec tronically Signed By: Annie Zaldivar DO\Date and Time Signed: 03/23/22 03:18 EST ED Patient Education Noteon 03-23-2022 ED Patient Education Note Normal [facility] ED Patient Summaryon 022 ED Patient Summary Normal [facility] Echo Transthoracic Completeo n 03-23-2022 Echo Transthoracic Complete Normal [facility] HEMATOLOGYOrdered By: SYSTEM SYSTEM on 03-23-2022 Basophils/100 WBC (Bld) 0.9 % Normal 0.0 - 2.0 % [facility] HemeAutoSS Basophils/Leukocytes Auto (Bld) [Pure # fraction] 0.1 E9/L Normal 0.0 - 0.2 E9/L [facility] HemeAutoSS Eosinophils/100 WBC (Bld) 0.1 % Normal 0.0 - 8.0 % [facility] HemeAutoSS Eosinophils/Leukocytes Auto (Bld) [Pure # fraction] 0.0 E9/L Normal 0.0 - 0.5 E9/L [facility] HemeAutoSS Lymphocytes/100 WBC (Bld) 4.7 % Low 14.0 - 50.0 % [facility] HemeAutoSS Lymphocytes/Leukocytes Auto (Bld) [Pure # fraction] 0.4 E9/L Low 1.0 - 4.0 E9/L [facility] HemeAutoSS Monocytes/100 WBC (Bld) 7.2 % Normal 4.0 - 14.0 % [facility] HemeAutoSS Monocytes/Leukocytes Auto (Bld) [Pure # fraction] 0.6 E9/L Normal 0.2 - 1.0 E9/L [facility] HemeAutoSS Neutrophils/100 WBC (Bld) 87.1 % High 36.0 - 75.0 % [facility] HemeAutoSS Neutrophils/Leukocytes Auto (Bld) [Pure # fraction] 7.0 E9/L Normal 2.0 - 7.5 E9/L [facility] HemeAutoSS Basophils/100 WBC (Bld) 0.5 % Normal 0.0 - 2.0 % [facility] HemeAutoSS Basophils/Leukocytes Auto (Bld) [Pure # fraction] 0.0 E9/L Normal 0.0 - 0.2 E9/L [facility]eAutoSS Eosinophils/100 WBC (Bld) 0.3 % Normal 0.0 - 8.0 % [facility] HemeAutoSS Eosinophils/Leukocytes Auto (Bld) [Pure # fraction] 0.0 E9/L Normal 0.0 - 0.5 E9/L [facility]eAuto[facility] Lymphocytes/100 WBC (Bld) 3.6 % Low 14.0 - 50.0 % [facility] HemeAutoSS Lymphocytes/Leukocytes Auto (Bld) [Pure # fraction] 0.3 E9/L Low 1.0 - 4.0 E9/L [facility] HemeAutoSS Monocytes/100 WBC (Bld) 6.2 % Normal 4.0 - 14.0 % [facility] HemeAutoSS Monocytes/Leukocytes Auto (Bld) [Pure # fraction] 0.5 E9/L Normal 0.2 - 1.0 E9/L [facility]eAutoSS Neutrophils/100 WBC (Bld) 89.4 % High 36.0 - 75.0 % [facility]eAutoSS Neutrophils/Leukocytes Auto (Bld) [Pure # fraction] 7.9 E9/L High 2.0 - 7.5 E9/L [facility] HemeAuto[facility] HEMATOLOGYOrdered By: Bea Almonte on 03-23-2022 Erythrocyte distribution width (RBC) [Ratio] 13.8 % Normal 10.9 - 14.2 % [facility] HemeAutoSS Hematocrit (Bld) [Volume fraction] 36.5 % Normal 34.0 - 46.0 % [facility] HemeAutoSS Hemoglobin (Bld) [Mass/Vol] 12.5 g/dL Normal 12.0 - 16.0 gm/dL [facility] HemeAutoSS MCH (RBC) [Entitic mass] 29.7 pg Normal 27.0 - 34.0 pg [facility]eAutoSS MCHC (RBC) [Mass/Vol] 34.2 g/dL Normal 31.4 - 36.0 gm/dL [facility]eAuto[facility] MCV (RBC) [Entitic vol] 86.7 fL Normal 80.0 - 100.0 fL [facility]eAutoSS Platelet mean volume (Bld) [Entitic vol] 7.9 fL Normal 6.4 - 10.8 fL [facility] HemeAutoSS Platelets (Bld) [#/Vol] 193.0 E9/L Normal 150. 0 - 500.0 E9/L [facility]eAuto[facility] RBC (Bld) [#/Vol] 4.2 E12/L Low 4.3 - 5.9 E12/L [facility]eAuto[facility] WBC corrected for nucl RBC Auto (Bld) [#/Vol] 8.0 E9/L Normal 4.0 - 11.0 E9/L [facility] HEMATOLOGYOrdered By: Marine Potter on 03-23-2022 Erythrocyte distribution width (RBC) [Ratio] 13.4 % Normal 10.9 - 14.2 % [facility] Hematocrit (Bld) [Volume fraction] 36.6 % Normal 34.0 - 46.0 % [facility] Hemoglobin (Bld) [Mass/Vol] 12.5 g/dL Normal 12.0 - 16.0 gm/dL [facility] MCH (RBC) [Entitic mass] 29.5 pg Normal 27.0 - 34.0 pg [facility] MCHC (RBC) [Mass/Vol] 34.1 g/dL Normal 31.4 - 36.0 gm/dL [facility] MCV (RBC) [Entitic vol] 86.5 fL Normal 80.0 - 100.0 fL [facility] HemeAutoSS Platelet mean volume (Bld) [Entitic vol] 7.5 fL Normal 6.4 - 10.8 fL [facility] HemeAutoSS Platelets (Bld) [#/Vol] 191.0 E9/L Normal 150. 0 - 500.0 E9/L [facility] HemeAutoSS RBC (Bld) [#/Vol] 4.2 E12/L Low 4.3 - 5.9 E12/L [facility] HemeAutoSS WBC corrected for nucl RBC Auto (Bld) [#/Vol] 8.8 E9/L Normal 4.0 - 11.0 E9/L [facility] HemeAutoSS Influenza A&B Agon 2 Influenzae A Ag Negative Normal Negative [facility] Comment on above: Performed By: #### 1 [id number], [id number] ####[facility] [address] [place] [address] Influenzae B Ag Negative Normal Negative [facility] Comment on above: Result Comment: Test sensitivity and specificity vary for age group, specimen type, antigen types, and prevalence of disease. Test results must be evaluated in conjunction with other clinical data available to the physician. Individuals who received nasally administered Influenza A vaccine may have positive test results up to 3 days after vaccination. Performed By: #### 1 [id number], [id number] ####[facility] [address] [place] [address] Interdisciplinary Note - Pito e Manageron 03-23-2022 Interdisciplinary Note - Machine Heel Seat Laster Normal [facility] Comment on above: Result Comment: Elec tronically Signed By: Mirela Petersen.gisela\Date and Time Signed: 03/23/22 09:47 EST Laboratory - Microbiology an d Antimicrobial susceptibilityOrdered By: Lisha Tavares on 03-23-2022 Bacteria identified Cx Nom (U) 5,000 cfu/ml Mixed skin contaminants [facility] Lactic Acidon 03-23-2022 Lactate [Mass/Vol] 0.8 mmol/L Normal 0.5-2.2 [facility] Comment on above: Performed By: #### 2 882291, 6753627, 75225107, 7523938, 38526693, 6523020, [id number] ####[facility] [address] [place] [address] MICRO OTHER TESTSOrdered By: Gayle Potter on 03-23-2022 Influenzae A Ag Negative (03/23/22 12:48 AM) Normal Negative [facility] Man Sero Influenzae B Ag Negative (03/23/22 12:48 AM) Normal Negative [facility] Man Sero Rapid COV Int NEG Ctl Pass (03/23/22 12:48 AM) Normal [facility] Man Sero Rapid COV Int POS Ctl Pass (03/23/22 12:48 AM) Normal [facility] Man Sero SARS-CoV+SARS-CoV-2 (COVID-19) Ag IA.rapid Ql (Resp) Not Detected (03/23/22 12:48 AM) Normal Not Detected FT Man Sero Message from Medicareon 03-02 Message from Medicare [id number]#[id number] :127 Normal [facility] Monitor Recordon 03-23-2022 Monitor Record [id number]#[id number] :127 Normal [facility] No Panel InformationOrdered By: Lisha Tavares on 03-23-2022 Blood Culture Charcoal Streptococcus pk ivarius Presumptive refer to blood culture from 03/23/22 at 0124 for complete susceptibility In 2 of 2 blood culture bottles drawn. Isolated from aerobic and anaerobic bottles Preliminary gram stain result of gram positive cocci in chains Result called to Dr. Mortensen by [facility] and results read back for confirmation on 03/23/2022 16:11:53 [facility] PT & PTTon 03-23-2022 aPTT Coag (PPP) [Time] 34.5 second(s) Normal 25.1-36.5 [facility] Comment on above: Result Comment: Para meter 15 days - 4 weeks 1 - 5 months 6 - 11 months 1 - 5 years 6 - 10 years 11 - 17 years PTT Mean: 35.4 (27.6-45.6) Mean: 33.5 (24.8-40.7) Mean: 32.4 (25.1-40.7) Mean: 31.6 (24.0-39.2) Mean: 31.6 (26.9-38.7) Mean: 31.0 (24.6-38.4) Pediatric Reference ranges were obtained from a study by Phi Kruger et al. prepared from 1437 samples obtained at 7 different centers using the same coagulation reagent and instrumentation as [facility]. Currently there are no coagulation studies available worldwide for children to 14 days, and no normal ranges. Heparin therapeutic range (represented by Anti-Factor Xa activity of 0.2 - 0.4 U/mL) corresponds to PTT of 56.6 - 109.0 sec. Performed By: #### 2 774608, 9087646, 06902388, 6348450, 95827976, 2021067, 0258624 ####[facility] [address] [place] [address] INR Coag (PPP) [Relative time] 2.7 {INR} Invalid Interpretation Code [facility] Comment on above: Result Comment: INR results are specifically intended to assess patients stabilized on long-term Anticoagulation therapy suggested INR?s ?Less Intensive Anticoagulation? 2.0 ? 3.0Conventional Range 3.0 ? 4.5 Performed By: #### 2 954988, 9970330, 40765810, 5301961, 24308823, 7775696, 8015467 ####[facility] [address] [place] [address] PT Coag (PPP) [Time] 31.2 second(s) High 9.4-12.5 [facility] Comment on above: Result Comment: 15 d ays - 4 weeks 1 - 5 months 6 -11 months 1 ? 5 years 6 ? 10 years 11 -17 years Mean: 11.2 (9.5 ? 12.6) Mean: 11.0 (9.7 ? 12.8) Mean: 11.0 (9.8 ? 13.0) Mean: 11.3 (9.9 ? 13.4) Mean: 11.7 (10.0 ? 14.6) Mean: 11.8 (10.0 - 14.1) Pediatric Reference ranges were obtained from a study by Phi Kruger et al. prepared from 1437 samples obtained at 7 different centers using the same coagulation reagent and instrumentation as [facility]. Currently there are no coagulation studies available worldwide for children to 14 days, and no normal ranges. Performed By: #### 2 948532, 4589959, 45486134, 8159520, 68306718, 0442545, 3765308 ####[facility] [address] [place] [address] Procalcitoninon 03-23-2022 Procalcitonin 1.08 ng/mL High .00-.50 [facility] Comment on above: Result Comment: <0.5 ng/mL Low risk of severe sepsis and/or shock>2.0 ng/mL High risk of severe sepsis and/or shockConcentrations under 0.5 ng/mL do not exclude local infections or systemic infections in their initial stages (e.g.. under six hours from onset of illness). PCT concentrations between 0.5 and 2.0 ng/mL should be interpreted with consideration of the patient's history. In this range, it is recommended to retest PCT within 6 to 24 hours. Performed By: #### 2 840403, 24408735, 9157798, [id number], 1316041, 5688233 ####[facility] [address] [place] [address] Progress Note - Pharmacyon 1 05-23-2021 Progress Note - Pharmacy Normal [facility] Rapid COVID Antigen ([facility])on 03-23-2022 Rapid COV Int NEG Ctl Pass Normal [facility] Comment on above: Performed By: #### 1 [id number], [id number] ####[address] [place] [address] Rapid COV Int POS Ctl Pass Normal [facility] Comment on above: Performed By: #### 1 9324439, [id number] ####[address] [place] [address] SARS-CoV+SARS-CoV-2 (COVID-19) Ag IA.rapid Ql (Resp) Not detected Normal Not Detected [facility] Comment on above: Result Comment: The Watchwith? System for Rapid Detection of SARS-CoV-2 is a chromatographic digital immunoassay intended for the direct and qualitative detection of SARS-CoV-2 nucleocapsid antigens in nasal swabs from individuals who are suspected of COVID-19 by their healthcare provider within the first five days of the onset of symptoms. Negative results should be treated as presumptive, do not rule out SARS-CoV-2 infection and should not be used as the sole basis for treatment or patient management decisions, including infection control decisions. Negative results should be considered in the context of a patient?s recent exposures, history and the presence of clinical signs and symptoms consistent with COVID-19, and confirmed with a molecular assay, if necessary, for patient management. For in vitro diagnostic use. In the [place], only for use under an Emergency Use Authorization. In the [place], this test has not been FDA cleared or approved; this test has been authorized by FDA under an EUA for use by authorized laboratories; use by laboratories certified under the CLIA, 42 U.S.C. ?263a, that meet requirements to perform moderate, high, or waived complexity tests and at the Point of Care (POC), i.e., in patient care settings operating under a CLIA Certificate of Waiver, Certificate of Compliance, or Certificate of Accreditation.This test has been authorized only for the detection of proteins from SARS-CoV-2, not for any other viruses or pathogens; and, in the [facility] [[email or web address]], this test is only authorized for the duration of the declaration that circumstances exist justifying the authorization of emergency use of in vitro diagnostics for detection and/or diagnosis of the virus that causes COVID-19 under Section 564(b)(1) of the Act, 21 U.S.C. ? 360bbb-3(b)(1), unless the authorization is terminated or revoked sooner. Performed By: #### 1 [id number], [id number] ####[place] [address] ADMITTED TO INTENSIVE CARE UNIT FOR CONDITION OF INTEREST:FIND:PT: NO Normal [facility] Comment on above: Performed By: #### 1 [id number], [id number] ####[place] [address] EMPLOYED IN A HEALTHCARE SETTING:FIND:PT: NO Normal [facility] Comment on above: Performed By: #### 1 [id number], [id number] ####[place] [address] FIRST TEST FOR CONDITION OF INTEREST:FIND:PT: YES Normal [facility] Comment on above: Performed By: #### 1 1226749, [id number] ####[place] [address] HAS SYMPTOMS RELATED TO CONDITION OF INTEREST:FIND:PT: YES Normal [facility] Comment on above: Performed By: #### 1 [id number], [id number] ####[place] [address] HOSPITALIZED FOR CONDITION OF INTEREST:FIND:PT: NO Normal [facility] Comment on above: Performed By: #### 1 1975650, [id number] ####[facility] [address] [place] [address] STATUS:FIND:PT: NO Normal [facility] Comment on above: Performed By: #### 1 9468249, [id number] ####[facility] [address] [place] [address] RESIDES IN A [place]GRE[place] CARE SETTING:FIND:PT: NO Normal [facility] Comment on above: Performed By: #### 1 1707942, [id number] ####[facility] [address] [place] [address] Reference Laboratory Testing Ordered By: Generated DomainUser on 03-23-2022 L. pneumophila 1 Ag IA Ql (U) Negative Invalid Interpretation Code Negative [facility] SendOutsSS Comment on above: Result Comment: Pres umptive negative for L. pneumophila serogroup 1 antigen in urine, suggesting no recent or current infection. Legionnaires' disease cannot be ruled out since other serogroups and species may also cause disease. Performed at: [address] [id number] MD Guevara Lewis Troponinon 03-23-2022 Troponin I.cardiac [Mass/Vol] 30.40 pg/mL High 10.10-27.10 [facility] Comment on above: Result Comment: The 95% CI (Confidence Interval) PPV (Positive Predictive Value) for myocardial infarction in females is 38 pg/mL, in males 51 pg/mL. The results should be used in conjunction with clinical conditions of myocardial infarction.(Access High Sensitivity Troponin I Instructions For Use, Andry Floresita, November 2017) Performed By: #### 2 902749, 20396041, 8690129, [id number], 2200806, 4002423 ####[facility] [address] [place] [address] Troponin I.cardiac [Mass/Vol] 31.00 pg/mL High 10.10-27.10 [facility] Comment on above: Result Comment: The 95% CI (Confidence Interval) PPV (Positive Predictive Value) for myocardial infarction in females is 38 pg/mL, in males 51 pg/mL. The results should be used in conjunction with clinical conditions of myocardial infarction.(Access High Sensitivity Troponin I Instructions For Use, Andry Hoffman, November 2017) Performed By: #### 2 829256, 2190498, 55805043, 9054277, 03164721, 2712595, 8742997 ####[facility] [address] [place] [address] UA With Cult Reflexon 2021 Bacteria LM Ql (Urine sed) TRACE Normal Trace [facility] Comment on above: Performed By: #### 2 282208, [id number] ####[facility] [address] [place] [address] Bilirubin Ql (U) Negative Normal Negative [facility] Comment on above: Performed By: #### 2 746245, 23421189 ####[address] [address] Clarity (U) CLEAR Normal Clear [facility] Comment on above: Performed By: #### 2 583868, [id number] ####[address] [address] Color (U) YELLOW Normal Yellow [facility] Comment on above: Performed By: #### 2 522253, 82193541 ####[address] [address] Epithelial cells.squamous LM.HPF (Urine sed) [#/Area] 3-4 Normal 0-2 [facility] Comment on above: Performed By: #### 2 267604, [id number] ####[facility] [address] [place] [address] Glucose Test strip (U) [Mass/Vol] Negative Normal Negative [facility] Comment on above: Performed By: #### 2 342970, [id number] ####[facility] [address] [place] [address] Hemoglobin Ql (U) 1+ Abnormal Negative [facility] Comment on above: Performed By: #### 2 888716, [id number] ####[facility] [address] [place] [address] Ketones (U) [Mass/Vol] 1+ Abnormal Negative [facility] Comment on above: Performed By: #### 2 417886, 93115386 ####[address] [address] [place].plasma/[place]. RBC (Bld) [Mass ratio] 4-20 Normal 0-3 [facility] Comment on above: Performed By: #### 2 241205, [id number] ####[address] [address] Nitrite Ql (U) Negative Normal Negative [facility] Comment on above: Performed By: #### 2 816654, [id number] ####[address] [address] pH (U) 6.0 [pH] Invalid Interpretation Code 5.0-9.0 [facility] Comment on above: Performed By: #### 2 316445, 18759758 ####[address] [address] Protein (U) [Mass/Vol] 2+ Abnormal Negative [facility] Comment on above: Performed By: #### 2 842686, 86322134 ####[address] [address] Specific gravity (U) [Rel density] 1.015 Invalid Interpretation Code 1.005-1.030 [facility] Comment on above: Performed By: #### 2 370858, 99409756 ####[address] [address] Type of Urine collection method Clean Catch Normal [facility] Comment on above: Performed By: #### 2 361191, 78976961 ####[address] [address] Urobilinogen Qn (U) 0.2 {Radha'U}/dL Normal 0.0-1.0 [facility] Comment on above: Performed By: #### 2 296198, 85905752 ####[address] [place] [address] WBC Auto Ql (U) TRACE Abnormal Negative [facility] Comment on above: Performed By: #### 2 252095, 14564950 ####[facility] [address] [place] [address] WBC LM.HPF (Urine sed) [#/Area] 6-15 Abnormal 0-5 [facility] Comment on above: Performed By: #### 2 273005, [id number] ####[facility] [address] [place] [address] URINALYSISOrdered By: Marine Potter on 03-23-2022 Bacteria LM Ql (Urine sed) Trace /HPF Normal Trace/HPF [facility] UA Auto SS Bilirubin Ql (U) Negative (03/23/22 2:58 AM) Normal Negative [facility] UA Auto SS Clarity (U) Clear (03/23/22 2:58 AM) Normal Clear [facility] UA Auto SS Color (U) Yellow (03/23/22 2:58 AM) Normal Yellow [facility] UA Auto SS Epithelial cells.squamous LM.HPF (Urine sed) [#/Area] 3-4 /HPF Normal 0-2/HPF [facility] UA Auto SS Glucose Test strip (U) [Mass/Vol] Negative (03/23/22 2:58 AM) Normal Negative [facility] UA Auto SS Hemoglobin Ql (U) 1+ *ABN* (03/23/22 2:58 AM) Invalid Interpretation Code Negative [facility] UA Auto SS Ketones (U) [Mass/Vol] 1+ *ABN* (03/23/22 2:58 AM) Invalid Interpretation Code Negative [facility] UA Auto SS [place].plasma/[place]. RBC (Bld) [Mass ratio] 4-20 /HPF Normal 0-3/HPF [facility] UA Auto SS Nitrite Ql (U) Negative (03/23/22 2:58 AM) Normal Negative [facility] UA Auto SS pH (U) 6.0 *NA* (03/23/22 2:58 AM) Invalid Interpretation Code 5.0 - 9.0 [facility] UA Auto SS Protein (U) [Mass/Vol] 2+ *ABN* (03/23/22 2:58 AM) Invalid Interpretation Code Negative [facility] UA Auto SS Specific gravity (U) [Rel density] 1.015 *NA* (03/23/22 2:58 AM) Invalid Interpretation Code 1.005 - 1.[address] [facility] UA Auto SS UA Spec Desc Clean Catch (03/23/22 2:58 AM) Normal [facility] UA Auto SS Urobilinogen Qn (U) 0.7527102 {Radha'U}/dL Normal 0.0 - 1.0 EU/dL [facility] UA Auto SS WBC Auto Ql (U) Trace *ABN* (03/23/22 2:58 AM) Invalid Interpretation Code Negative [facility] UA Auto SS WBC LM.HPF (Urine sed) [#/Area] 6-15 /HPF Invalid Interpretation Code 0-5/HPF [facility] UA Auto SS XR Chest Single Viewon 03-23 XR Chest Single View Normal [facility] cefTRIAXone QUOC [Susc]Ordere d By: Lisha Tavares on 03-23-2022 Streptococcus salivarius Streptococcus salivarius [facility] eGFRon 03-23-2022 GFR/1.73 sq M.predicted among blacks MDRD (S/P/Bld) [Vol rate/Area] mL/min/{1.73_m2} Normal >=59 [facility] Comment on above: Order Comment: Order added by Discern Expert. Result Comment: eGFR is race adjusted. AA=. Performed By: #### 2 219468, 48554820, 1245280, [id number], 6717388, 2145380 ####[facility] [address] [place] [address] GFR/1.73 sq M.predicted among non-blacks MDRD (S/P/Bld) [Vol rate/Area] 54 mL/min/1.73 m2 Low >=59 [facility] Comment on above: Order Comment: Order added by Discern Expert. Result Comment: Patient Transport Officer quan kidney disease could be indicated at eGFR's of less than 60 mL/min/1.73m2. Kidney failure is indicated at less than 15 mL/min/1.73m2. Performed By: #### 2 447326, 60385195, 8937160, [id number], 9510351, 1712462 ####[facility] [address] [place] [address] GFR/1.73 sq M.predicted among blacks MDRD (S/P/Bld) [Vol rate/Area] mL/min/{1.73_m2} Normal >=59 [facility] Comment on above: Order Comment: Order added by Discern Expert. Result Comment: eGFR is race adjusted. AA=. Performed By: #### 2 332236, 2053936, 22663985, 5087749, 44891537, 1493624, 9590288 ####[facility] [address] [place] [address] GFR/1.73 sq M.predicted among non-blacks MDRD (S/P/Bld) [Vol rate/Area] mL/min/{1.73_m2} Normal >=59 [facility] Comment on above: Order Comment: Order added by Discern Expert. Result Comment: Patient Transport Officer quan kidney disease could be indicated at eGFR's of less than 60 mL/min/1.73m2. Kidney failure is indicated at less than 15 mL/min/1.73m2. Performed By: #### 2 281840, 8321457, 34470379, 7623692, 98574706, 2946974, 5376784 ####[address] [place] [address] Prot. Electroph, Blon 2021 Pathologist Review: ELECTRONICALLY NATHALIA CORADO M.D. Normal [facility] Comment on above: Performed By: #### P ARA, VD25, PE #### [facility] [address] [place] [address] [employer] Sales Representative: Len Martínez MD #### BMP #### [facility] [address] [place] [address] [employer] Sales Representative: Zac Loera MD Prot. Elect-Interp NORMAL ELECTROPHORET IC PATTERN Normal [facility] Comment on above: Performed By: #### P ARA VD25, PE #### [address] [id number] [employer] Sales Representative: Len Martínez MD #### BMP #### [facility] [address] [place] [address] [employer] Sales Representative: Zac Loera MD Prot. Electroph, Blon 2021 Albumin [Mass/Vol] 4.3 g/dL Normal 3.2-5.2 [facility] Comment on above: Performed By: #### P THNCA, VD25, PE #### [address] [address] [employer] Sales Representative: Len Martínez MD #### BMP #### [facility] [address] [place], [place] [id number] [employer] Sales Representative: Zac Loera MD Albumin, % 61 % Normal 45-65 [facility] Comment on above: Performed By: #### P THNCA, VD25, PE #### [address] [address] [employer] Sales Representative: Len Martínez MD #### BMP #### [facility] [address] [place], [place] [id number] [employer] Sales Representative: Zac Loera MD Alnxh-5-queohqqbg 0.2 g/dL Normal 0.1-0.4 [facility] Comment on above: Performed By: #### P THNCA, VD25, PE #### [address] [address] [employer] Sales Representative: Len Martínez MD #### BMP #### [facility] [address] [place], [place] [id number] [employer] Sales Representative: Zac Loera MD Vtvxy-0-ihgselguj,% 2 % Low 3-6 [facility] Comment on above: Performed By: #### P THNCA, VD25, PE #### [address] [id number] [employer] Sales Representative: Len Martínez MD #### BMP #### [facility] [address] [place], [place] [id number] [employer] Sales Representative: Zac Loera MD Obfjr-6-hpzwnzmux 0.8 g/dL Normal 0.5-0.9 [facility] Comment on above: Performed By: #### P THNCA, VD25, PE #### [address] [address] [employer] Sales Representative: Len Martínez MD #### BMP #### [facility] [address] [place], [place] [id number] [employer] Sales Representative: Zac Loera MD Mcgmi-5-bnbkxflsi,% 12 % Normal 6-13 [facility] Comment on above: Performed By: #### P THNCA, VD25, PE #### [address] [id number] [employer] Sales Representative: Len Martínez MD #### BMP #### [facility] [address] [place], [place] 8497690 [employer] Sales Representative: Zac Loera MD Beta-globulins 0.7 g/dL Normal 0.5-1.1 [facility] Comment on above: Performed By: #### P THNCA, VD25, PE #### [address] [address] [employer] Sales Representative: Len Martínez MD #### BMP #### [facility] [address] [place], [place] 5522[address] [employer] Sales Representative: Zac Loera MD Beta-globulins,% 10 % Low 11-19 [facility] Comment on above: Performed By: #### P THNCA, VD25, PE #### [address] [address] [employer] Sales Representative: Len Martínez MD #### BMP #### [facility] [address] [place], [place] 1937390 [employer] Sales Representative: Zac Loera MD Gamma-globulins 1.1 g/dL Normal 0.5-1.5 [facility] Comment on above: Performed By: #### P THNCA, VD25, PE #### [address] [address] [employer] Sales Representative: Len Martínez MD #### BMP #### [facility] [address] [place], [place] 06[address] [employer] Sales Representative: Zac Loera MD Gamma-globulins,% 15 % Normal 9-20 [facility] Comment on above: Performed By: #### P THNCA, VD25, PE #### [address] [id number] [employer] Sales Representative: Len Martínez MD #### BMP #### [facility] [address] [place], [place] 17[address] [employer] Sales Representative: Zac Loera MD Total Prot. Sum 7.1 g/dL Normal 6.3-8.2 [facility] Comment on above: Performed By: #### P THNCA, VD25, PE #### [address] [address] [employer] Sales Representative: Len Martínez MD #### BMP #### [facility] [address] [place] [address] [employer] Sales Representative: Zac Loera MD Total Prot. Sum,% 100 % Normal 98-102 [facility] Comment on above: Performed By: #### P THNCA, VD25, PE #### [address] [address] [employer] Sales Representative: Len Martínez MD #### BMP #### [facility] [address] [place] [address] [employer] Sales Representative: Zac Loera MD Basic Metabolic Panelon Anion gap [Moles/Vol] 12 mmol/L 9 - 17 mmol/L [facility] Calcium [Mass/Vol] 9.7 mg/dL 8.6 - 10. 4 mg/dL [facility] Chloride [Moles/Vol] 102 mmol/L 98 - 10 7 mmol/L [facility] CO2 [Moles/Vol] 22 mmol/L 20 - 31 mmol/L [facility] Creatinine [Mass/Vol] 1.01 mg/dL High 0.5 - 0.9 mg/dL [facility] GFR >60 60 - PI NF mL/min [facility] GFR Non- 54 mL/min Low 60 - PINF mL/min [facility] GFR/1.73 sq M.predicted MDRD (S/P/Bld) [Vol rate/Area] [facility] Comment on above: Average GFR for 70 o r more years old: 75 mL/min/1.73sq m Chronic Kidney Disease: <60 mL/min/1.73sq m Kidney failure: <15 mL/min/1.73sq m eGFR calculated using average adult body mass. Additional eGFR calculator available at: http://www.[employer]/multiple_crcl_2012.htm Glucose [Mass/Vol] 130 mg/dL High 70 - 99 mg/dL [facility] Interpretation and review of laboratory results Abnormal [facility] Potassium [Moles/Vol] 4.3 mmol/L 3.7 - 5.3 mmol/L [facility] Sodium [Moles/Vol] 136 mmol/L 135 - 144 mmol/L [facility] Urea nitrogen (BldV) [Mass/Vol] 20 mg/dL 8 - 23 mg/dL [facility] Urea nitrogen/Creatinine (Bld) [Mass ratio] 20 9 - 20 [facility] Basic Metabolic Profon 01-07 (cont.) Normal [facility] Comment on above: Result Comment: Aver age GFR for 70 or more years old: 75 mL/min/1.73sq m Chronic Kidney Disease: <60 mL/min/1.73sq m Kidney failure: <15 mL/min/1.73sq m eGFR calculated using average adult body mass. Additional eGFR calculator available at: http://www.[employer]/multiple_crcl_2012.htm Performed By: #### P THNCA, VD25, PE #### [address] [address] [employer] Sales Representative: Len Martínez MD #### BMP #### [facility] [address] [place], [place] [id number] [employer] Sales Representative: Zac Loera MD Anion gap [Moles/Vol] 12 mmol/L Normal 9-17 [facility] Comment on above: Performed By: #### P THNCA, VD25, PE #### [address] [phone] [employer] Sales Representative: Len Martínez MD #### BMP #### [facility] [address] [place], [place] [phone] [employer] Sales Representative: Zac Loera MD BUN/CRE Ratio 20 Normal 9-20 [facility] Comment on above: Performed By: #### P THNCA, VD25, PE #### [address] [address] [employer] Sales Representative: Len Martínez MD #### BMP #### [facility] [address] [place], [place] [phone] [employer] Sales Representative: Zac Loera MD Calcium [Mass/Vol] 9.7 mg/dL Normal 8.6-10.4 [facility] Comment on above: Performed By: #### P THNCA, VD25, PE #### [address] [phone] [employer] Sales Representative: Len Martínez MD #### BMP #### [facility] [address] [place], [place] [phone] [employer] Sales Representative: Zac Loera MD Chloride [Moles/Vol] 102 mmol/L Normal 98-107 [facility] Comment on above: Performed By: #### P THNCA, VD25, PE #### [facility] [address] [place], [place] [phone] [employer] Sales Representative: Len Martínez MD #### BMP #### [facility] [address] [place], [place] 473[address] [employer] Sales Representative: Zac Loera MD CO2 [Moles/Vol] 22 mmol/L Normal 20-31 [facility] Comment on above: Performed By: #### P THNCA, VD25, PE #### [address] [phone] [employer] Sales Representative: Len Martínez MD #### BMP #### [facility] [address] [place], [place] [phone] [employer] Sales Representative: Zac Loera MD Creatinine [Mass/Vol] 1.01 mg/dL High 0.50-0.90 [facility] Comment on above: Performed By: #### P THNCA, VD25, PE #### [facility] [address] [place] [address] [phone] [employer] Sales Representative: Len Martínez MD #### BMP #### [facility] [address] [place], [place] [phone] [employer] Sales Representative: Zac Loera MD GFR, Amer >60 Normal >60 [facility] Comment on above: Performed By: #### P THNCA, VD25, PE #### [facility] [address] [place], [place] [phone] [employer] Sales Representative: Len Martínez MD #### BMP #### [facility] [address] [place], [place] [phone] [employer] Sales Representative: Zac Loera MD GFR,non Amer 54 mL/min Low >60 [facility] Comment on above: Performed By: #### P THNCA, VD25, PE #### [address] [phone] [employer] Sales Representative: Len Martínez MD #### BMP #### [facility] [address] [place], [place] [phone] [employer] Sales Representative: Zac Loera MD Glucose [Mass/Vol] 130 mg/dL High 70-99 [facility] Comment on above: Performed By: #### P THNCA, VD25, PE #### [address] [phone] [employer] Sales Representative: Len Martínez MD #### BMP #### [facility] [address] [place] [address] [employer] Sales Representative: Zac Loera MD Potassium [Moles/Vol] 4.3 mmol/L Normal 3.7-5.3 [facility] Comment on above: Performed By: #### P THEDOUARD, VD25, PE #### [address] [phone] [employer] Sales Representative: Len Martínez MD #### BMP #### [facility] [address] [place] [address] [employer] Sales Representative: Zac Loera MD Sodium [Moles/Vol] 136 mmol/L Normal 135-144 [facility] Comment on above: Performed By: #### P THNCA, VD25, PE #### [address] [address] [employer] Sales Representative: Len Martínez MD #### BMP #### [facility] [address] [place], [place] [phone] [employer] Sales Representative: Zac Loera MD Urea nitrogen [Mass/Vol] 20 mg/dL Normal 8-23 [facility] Comment on above: Performed By: #### P ARA VD25, PE #### [facility] [address] [place] [address] [employer] Sales Representative: Len Martínez MD #### BMP #### [facility] [address] [place], [place] [phone] [employer] Sales Representative: Zac Loera MD PTH, Intacton 01-07-2022 PTH, Intact 78.3 pg/mL High 14.0-72.0 [facility] Comment on above: Result Comment: SAMP LES FROM PATIENTS ROUTINELY RECEIVING HIGH DOSE BIOTIN THERAPY MAY SHOW FALSELY DEPRESSED RESULTS. ADDITIONAL INFORMATION MAY BE REQUIRED FOR DIAGNOSIS. Performed By: #### P ARA VD25, PE #### [address] [place], [place] [phone] [employer] Sales Representative: Len Martínez MD #### BMP #### [facility] [address] [place], [place] 201[address] [employer] Sales Representative: Zac Loera MD Interpretation and review of laboratory results Abnormal [facility] Pth Intact 78.3 pg/mL High 14 - 72 pg/mL [facility] Comment on above: SAMPLES FROM PATIENT S ROUTINELY RECEIVING HIGH DOSE BIOTIN THERAPY MAY SHOW FALSELY DEPRESSED RESULTS. ADDITIONAL INFORMATION MAY BE REQUIRED FOR DIAGNOSIS. [facility] Prot. Electroph, Blon 2021 Protein [Mass/Vol] 7.1 g/dL Normal 6.4-8.3 [facility] Comment on above: Performed By: #### P ARA VD25, PE #### [facility] [address] [place], [place] [phone] [employer] Sales Representative: Len Martínez MD #### BMP #### [facility] [address] [place], [place] [phone] [employer] Representative: Zac Loera MD Vitamin D 25 Hydroxyon 01-07 Vit D, 25-Hydroxy 58.1 ng/mL 29.9 - PIN F ng/mL [facility] Comment on above: Reference Range: Vitamin D status Range Deficiency <20 ng/mL Mild Deficiency 20-30 ng/mL Sufficiency 30-100 ng/mL Toxicity >100 ng/mL [facility] Vitamin D 25 OHon 01-07-2022 Vitamin D 25 [place] 58.1 ng/mL Normal >29.9 [facility] Comment on above: Result Comment: Reference Range: Vitamin D status Range Deficiency <20 ng/mL Mild Deficiency 20-30 ng/mL Sufficiency 30-100 ng/mL Toxicity >100 ng/mL Performed By: #### P ARA, VD25, PE #### [facility] [address] [place] [address] [employer] Sales Representative: Len Martínez MD #### BMP #### [facility] [address] [place] [address] [employer] Sales Representative: Zac Loera MD Basic Metabolic Panelon 11-30 Anion gap [Moles/Vol] 8 mmol/L Low 9 - 17 mmol/L [facility] Calcium [Mass/Vol] 9.9 mg/dL 8.6 - 10. 4 mg/dL [facility] Chloride [Moles/Vol] 103 mmol/L 98 - 10 7 mmol/L [facility] CO2 [Moles/Vol] 26 mmol/L 20 - 31 mmol/L [facility] Creatinine [Mass/Vol] 1.15 mg/dL High 0.5 - 0.9 mg/dL [facility] GFR 56 mL/min Low 60 - PI NF mL/min [facility] GFR Non- 46 mL/min Low 60 - PINF mL/min [facility] GFR/1.73 sq M.predicted MDRD (S/P/Bld) [Vol rate/Area] [facility] Comment on above: Average GFR for 70 o r more years old: 75 mL/min/1.73sq m Chronic Kidney Disease: <60 mL/min/1.73sq m Kidney failure: <15 mL/min/1.73sq m eGFR calculated using average adult body mass. Additional eGFR calculator available at: http://www.[employer]/multiple_crcl_2012.htm Glucose [Mass/Vol] 114 mg/dL High 70 - 99 mg/dL [facility] Interpretation and review of laboratory results Abnormal [facility] Potassium [Moles/Vol] 4.3 mmol/L 3.7 - 5.3 mmol/L [facility] Sodium [Moles/Vol] 137 mmol/L 135 - 144 mmol/L [facility] Urea nitrogen (BldV) [Mass/Vol] 20 mg/dL 8 - 23 mg/dL [facility] Urea nitrogen/Creatinine (Bld) [Mass ratio] 17 9 - [facility] Basic Metabolic Profon 12-20 (cont.) [facility] Comment on above: Result Comment: Aver age GFR for 70 or more years old: 75 mL/min/1.73sq m Chronic Kidney Disease: <60 mL/min/1.73sq m Kidney failure: <15 mL/min/1.73sq m eGFR calculated using average adult body mass. Additional eGFR calculator available at: http://www.[employer]/multiple_crcl_2012.htm Performed By: #### B MP #### [facility] [address] [place] [address] [employer] Representative: Zac Loera MD Anion gap [Moles/Vol] 8 mmol/L Low - [facility] Comment on above: Performed By: #### B MP #### [facility] [address] [place] [address] [employer] Sales Representative: Zac Loera MD BUN/CRE Ratio 17 Normal - [facility] Comment on above: Performed By: #### B MP #### [facility] [address] [place] [address] [employer] Sales Representative: Zac Loera MD Calcium [Mass/Vol] 9.9 mg/dL Normal 8.6-10.4 [facility] Comment on above: Performed By: #### B MP #### [facility] [address] [place], [place] 9004290 [employer] Representative: Zac Loera MD Chloride [Moles/Vol] 103 mmol/L Normal 98-107 [facility] Comment on above: Performed By: #### B MP #### [facility] [address] [place], [place] [phone] [employer] Sales Representative: Zac Loera MD CO2 [Moles/Vol] 26 mmol/L Normal 20-31 [facility] Comment on above: Performed By: #### B MP #### [facility] [address] [place] [address] [employer] Representative: Zac Loera MD Creatinine [Mass/Vol] 1.15 mg/dL High 0.50-0.90 [facility] Comment on above: Performed By: #### B MP #### [facility] [address] [place], [place] 839[address] [employer] Representative: Zac Loera MD GFR, Amer 56 mL/min Low >60 [facility] Comment on above: Performed By: #### B MP #### [facility] [address] [place], [place] [phone] [employer] Representative: Zac Loera MD GFR,non Amer 46 mL/min Low >60 [facility] Comment on above: Performed By: #### B MP #### [facility] [address] [place], [place] 2066390 [employer] Sales Representative: Zac Loera MD Glucose [Mass/Vol] 114 mg/dL High 70-99 [facility] Comment on above: Performed By: #### B MP #### [facility] [address] [place], [place] 7562190 [employer] Representative: Zac Loera MD Potassium [Moles/Vol] 4.3 mmol/L Normal 3.7-5.3 [facility] Comment on above: Performed By: #### B MP #### [facility] [address] [place], [place] 8344190 [employer] Representative: Zac Loera MD Sodium [Moles/Vol] 137 mmol/L Normal 135-144 [facility] Comment on above: Performed By: #### B MP #### [facility] [address] [place], [place] 0589[address] [employer] Sales Representative: Zac Loera MD Urea nitrogen [Mass/Vol] 20 mg/dL Normal 8-23 [facility] Comment on above: Performed By: #### B MP #### [facility] [address] [place], [place] 0200[address] [employer] Sales Representative: Zac Loera MD Coding Summary.on 12-17-2021 Coding Summary. Normal [facility] Coding Summary.on 11-17-2021 Coding Summary. Normal [facility] Auto Diffon 11-14-2021 Basophils/100 WBC (Bld) 0.5 % Normal 0.0-2.0 [facility] Comment on above: Order Comment: Order Added by Discern Expert. Performed By: #### 2 875020, 2054730, 0198935, 35077530, [id number] ####[facility] [address] [place] [address] Basophils/Leukocytes Auto (Bld) [Pure # fraction] 0.1 E9/L Normal 0.0-0.2 [facility] Comment on above: Order Comment: Order Added by Discern Expert. Performed By: #### 2 635033, 7851575, 3496951, 24895855, 88729294 ####[facility] [address] [place] [address] Eosinophils/100 WBC (Bld) 1.8 % Normal 0.0-8.0 [facility] Comment on above: Order Comment: Order Added by Discern Expert. Performed By: #### 2 852045, 6225712, 8553251, 45840246, 83453745 ####[address] [place] [address] Eosinophils/Leukocytes Auto (Bld) [Pure # fraction] 0.2 E9/L Normal 0.0-0.5 [facility] Comment on above: Order Comment: Order Added by Discern Expert. Performed By: #### 2 120847, 5388928, 7199221, 71814870, 03505325 ####[address] [address] Lymphocytes/100 WBC (Bld) 9.1 % Low 14.0-50.0 [facility] Comment on above: Order Comment: Order Added by Robert Expert. Performed By: #### 2 665515, 2030683, 2135212, 09010471, 04059617 ####[address] [address] Lymphocytes/Leukocytes Auto (Bld) [Pure # fraction] 1.2 E9/L Normal 1.0-4.0 [facility] Comment on above: Order Comment: Order Added by Robert Expert. Performed By: #### 2 284439, 0495705, 1040346, 13644701, 89774522 ####[address] [place] [address] Monocytes/100 WBC (Bld) 11.3 % Normal 4.0-14.0 [facility] Comment on above: Order Comment: Order Added by Discern Expert. Performed By: #### 2 523240, 5226803, 8670389, 39887958, 46330848 ####[address] [place] [address] Monocytes/Leukocytes Auto (Bld) [Pure # fraction] 1.4 E9/L High 0.2-1.0 [facility] Comment on above: Order Comment: Order Added by Robert Expert. Performed By: #### 2 533743, 3774353, 8506916, 75732433, 98196464 ####[facility] [address] [place] [address] Neutrophils/100 WBC (Bld) 77.3 % High 36.0-75.0 [facility] Comment on above: Order Comment: Order Added by Discern Expert. Performed By: #### 2 975285, 3251616, 5879223, 49041728, 49624677 ####[facility] [address] [place] [address] Neutrophils/Leukocytes Auto (Bld) [Pure # fraction] 9.9 E9/L High 2.0-7.5 [facility] Comment on above: Order Comment: Order Added by Discern Expert. Performed By: #### 2 881562, 7559736, 7417782, 91496051, 66868955 ####[facility] [address] [place] [address] BMPon 11-14-2021 Creatinine [Mass/Vol] 0.9 mg/dL Normal 0.5-1.3 [facility] Comment on above: Performed By: #### 2 763369, 4539305, 7235462, 11223916, 30102402 ####[facility] [address] [place] [address] Urea nitrogen [Mass/Vol] 19 mg/dL Normal 5-21 [facility] Comment on above: Performed By: #### 2 051925, 7904091, 5606604, 49246727, 78274076 ####[facility] [address] [place] [address] Urea nitrogen/Creatinine [Mass ratio] 21 No Units High 10-20 [facility] Comment on above: Performed By: #### 2 999277, 0308438, 6966977, 73901649, 67253702 ####[facility] [address] [place] [address] Anion gap [Moles/Vol] 15 mmol/L Normal 6-16 [facility] Comment on above: Performed By: #### 2 047670, 6114018, 8754752, 39459528, 39442297 ####[facility] [address] [place] [facility] [place] [address] Calcium [Mass/Vol] 9.9 mg/dL Normal 8.9-11.1 [facility] Comment on above: Performed By: #### 2 782248, 8472956, 5182249, 95765045, 32417965 ####[facility] [address] [place] [address] Chloride [Moles/Vol] 99 mmol/L Low 101-111 [facility] Comment on above: Performed By: #### 2 967416, 1398011, 6433541, 06954451, 59052596 ####[facility] [address] [facility] [address] CO2 [Moles/Vol] 22 mmol/L Normal 21-31 [facility] Comment on above: Performed By: #### 2 313948, 5721785, 9079333, 76564183, 00743763 ####[facility] [address] [facility] [address] Glucose [Mass/Vol] 101 mg/dL Normal 55-199 [facility] Comment on above: Result Comment: If t his glucose result represents a fasting glucose, interpretation should refer to the following reference range: 55-99 mg/dL Performed By: #### 2 665482, 7657550, 5930498, 67902646, 87650387 ####[facility] [address] [place] [address] Potassium [Moles/Vol] 4.5 mmol/L Normal 3.5-5.3 [facility] Comment on above: Performed By: #### 2 102352, 2951580, 5619853, 45159766, 16313132 ####[facility] [address] [place] [address] Sodium [Moles/Vol] 131 mmol/L Low 135-145 [facility] Comment on above: Performed By: #### 2 430839, 3924895, 9552434, 71133581, 39322362 ####[facility] [address] [place] [address] CBC w/ Auto Diffon Erythrocyte distribution width (RBC) [Ratio] 13.1 % Normal 10.9-14.2 [facility] Comment on above: Performed By: #### 2 595685, 5435252, 4269405, 87785737, 32399505 ####[address] [place] [address] Hematocrit (Bld) [Volume fraction] 36.1 % Normal 34.0-46.0 [facility] Comment on above: Performed By: #### 2 133124, 1260794, 9617793, 51251104, 12065090 ####[address] [address] Hemoglobin (Bld) [Mass/Vol] 11.8 g/dL Low 12.0-16.0 [facility] Comment on above: Performed By: #### 2 755929, 4930023, 2450828, 06525766, 58734611 ####[address] [address] MCH (RBC) [Entitic mass] 29.4 pg Normal 27.0-34.0 [facility] Comment on above: Performed By: #### 2 276947, 5336683, 9480449, 17216940, 06893026 ####[address] [address] MCHC (RBC) [Mass/Vol] 32.7 g/dL Normal 31.4-36.0 [facility] Comment on above: Performed By: #### 2 142588, 0034013, 2783215, 56889515, 61417606 ####[address] [address] MCV (RBC) [Entitic vol] 89.7 fL Normal 80.0-100.0 [facility] Comment on above: Performed By: #### 2 293265, 2282345, 7616683, 88008440, 90529560 ####[facility] [address] [place] [address] Platelet mean volume (Bld) [Entitic vol] 7.5 fL Normal 6.4-10.8 [facility] Comment on above: Performed By: #### 2 411415, 3650383, 0037787, 75198071, 44841450 ####[address] [place] [address] Platelets (Bld) [#/Vol] 340.0 E9/L Normal 150.0-500.0 [facility] Comment on above: Performed By: #### 2 173060, 2941164, 3551701, 32886955, 65922960 ####[address] [address] RBC (Bld) [#/Vol] 4.0 E12/L Low 4.3-5.9 [facility] Comment on above: Performed By: #### 2 242158, 5864419, 0157682, 48737351, 19308993 ####[address] [address] WBC corrected for nucl RBC Auto (Bld) [#/Vol] 12.8 E9/L High 4.0-11.0 [facility] Comment on above: Performed By: #### 2 247151, 9732758, 8048851, 57216853, 01354535 ####[address] [address] CHEMISTRYOrdered By: SYSTEM SYSTEM on 11-14-2021 Anion gap [Moles/Vol] 15 mmol/L Normal 6 - 16 mEq/L [facility] Calcium [Mass/Vol] 9.9 mg/dL Normal 8.9 - 11. 1 mg/dL [facility] Chloride [Moles/Vol] 99 mmol/L Low 101 - 1 11 mmol/L [facility] CO2 [Moles/Vol] 22 mmol/L Normal 21 - 31 mmol/L [facility] Creatinine [Mass/Vol] 0.9 mg/dL Normal 0.5 - 1.3 mg/dL [facility] Remisol GFR/1.73 sq M.predicted among blacks MDRD (S/P/Bld) [Vol rate/Area] mL/min/1.73 m2 Normal >=59mL/min/ 1.[address] [facility] Chem S GFR/1.73 sq M.predicted among non-blacks MDRD (S/P/Bld) [Vol rate/Area] mL/min/1.73 m2 Normal >=59mL/min/ 1.[address] [facility] Chem S Glucose [Mass/Vol] 101 mg/dL Normal 55 - 199 mg/dL [facility] Remisol Potassium [Moles/Vol] 4.5 mmol/L Normal 3.5 - 5.3 mmol/L [facility] Remisol Sodium [Moles/Vol] 131 mmol/L Low 135 - 145 mmol/L [facility] Remisol Troponin I.cardiac [Mass/Vol] 12.30 pg/mL Normal 10.10 - 27.10 pg/mL [facility] Remisol Urea nitrogen [Mass/Vol] 19 mg/dL Normal 5 - 21 mg/dL [facility] Remisol Urea nitrogen/Creatinine [Mass ratio] 21 mg/mg High 10 - 20 [facility] Consent for Treatmenton 10-29 Consent for Treatment [id number]: 127 Normal [facility] ED Clinical Summaryon 2021 ED Clinical Summary Normal [facility] ED Note-Nursingon 11-14-2021 ED Note-Nursing pt came up to nurses station and stated she wanted to go home. pt was asked to stay to sign paperwork and pt ignored the nurse and walked out of the ED with her . ED made aware. Normal [facility] ED Note-Nursing pt arrived to ed fro m home with her c/o fever of 99.5F and persistent cough since monday. pt denies any SOB or CP. pt has been taking robitussin and musinex at home. pt has a non productive cough with clear lung sounds throughout. VSS Normal [facility] ED Note-Physicianon 11-15-19 ED Note-Physician Normal [facility] Comment on above: Result Comment: Elec tronically Signed By: Martínez Stoll M.D.\Date and Time Signed: 11/14/21 06:46 EDT ED Patient Education Noteon 11-14-2021 ED Patient Education Note Normal [facility] ED Patient Summaryon 022 ED Patient Summary Normal [facility] HEMATOLOGYOrdered By: SYSTEM SYSTEM on 11-14-2021 Basophils/100 WBC (Bld) 0.5 % Normal 0.0 - 2.0 % [facility] HemeAutoSS Basophils/Leukocytes Auto (Bld) [Pure # fraction] 0.1 E9/L Normal 0.0 - 0.2 E9/L [facility] HemeAutoSS Eosinophils/100 WBC (Bld) 1.8 % Normal 0.0 - 8.0 % [facility] HemeAutoSS Eosinophils/Leukocytes Auto (Bld) [Pure # fraction] 0.2 E9/L Normal 0.0 - 0.5 E9/L [facility] HemeAutoSS Lymphocytes/100 WBC (Bld) 9.1 % Low 14.0 - 50.0 % [facility] HemeAutoSS Lymphocytes/Leukocytes Auto (Bld) [Pure # fraction] 1.2 E9/L Normal 1.0 - 4.0 E9/L [facility] HemeAutoSS Monocytes/100 WBC (Bld) 11.3 % Normal 4.0 - 14.0 % [facility] HemeAutoSS Monocytes/Leukocytes Auto (Bld) [Pure # fraction] 1.4 E9/L High 0.2 - 1.0 E9/L [facility]eAutoSS Neutrophils/100 WBC (Bld) 77.3 % High 36.0 - 75.0 % [facility]eAutoSS Neutrophils/Leukocytes Auto (Bld) [Pure # fraction] 9.9 E9/L High 2.0 - 7.5 E9/L [facility] HemeAutoSS HEMATOLOGYOrdered By: Kamron Romero on 11-14-2021 Erythrocyte distribution width (RBC) [Ratio] 13.1 % Normal 10.9 - 14.2 % [facility] HemeAutoSS Hematocrit (Bld) [Volume fraction] 36.1 % Normal 34.0 - 46.0 % [facility]eAutoSS Hemoglobin (Bld) [Mass/Vol] 11.8 g/dL Low 12.0 - 16.0 gm/dL [facility] HemeAutoSS MCH (RBC) [Entitic mass] 29.4 pg Normal 27.0 - 34.0 pg [facility] HemeAutoSS MCHC (RBC) [Mass/Vol] 32.7 g/dL Normal 31.4 - 36.0 gm/dL [facility] HemeAutoSS MCV (RBC) [Entitic vol] 89.7 fL Normal 80.0 - 100.0 fL [facility] HemeAutoSS Platelet mean volume (Bld) [Entitic vol] 7.5 fL Normal 6.4 - 10.8 fL [facility] HemeAutoSS Platelets (Bld) [#/Vol] 340.0 E9/L Normal 150. 0 - 500.0 E9/L [facility] HemeAutoSS RBC (Bld) [#/Vol] 4.0 E12/L Low 4.3 - 5.9 E12/L [facility] HemeAutoSS WBC corrected for nucl RBC Auto (Bld) [#/Vol] 12.8 E9/L High 4.0 - 11.0 E9/L [facility] HemeAutoSS Troponin 0 Hr.on 11-14-2021 Troponin I.cardiac [Mass/Vol] 12.30 pg/mL Normal 10.10-27.10 [facility] Comment on above: Result Comment: The 95% CI (Confidence Interval) PPV (Positive Predictive Value) for myocardial infarction in females is 38 pg/mL, in males 51 pg/mL. The results should be used in conjunction with clinical conditions of myocardial infarction.(Access High Sensitivity Troponin I Instructions For Use, Andry [employer], November 2017) Performed By: #### 2 [id number] ####[facility] [address] [place] [address] XR Chest Single Viewon 11-14 XR Chest Single View Normal [facility] eGFRon 11-14-2021 GFR/1.73 sq M.predicted among blacks MDRD (S/P/Bld) [Vol rate/Area] mL/min/{1.73_m2} Normal >=59 [facility] Comment on above: Order Comment: Order added by Discern Expert. Result Comment: eGFR is race adjusted. AA=. Performed By: #### 2 [id number], [id number] ####[facility] [address] [place] [address] GFR/1.73 sq M.predicted among non-blacks MDRD (S/P/Bld) [Vol rate/Area] mL/min/{1.73_m2} Normal >=59 [facility] Comment on above: Order Comment: Order added by Discern Expert. Result Comment: Patient Transport Officer quan kidney disease could be indicated at eGFR's of less than 60 mL/min/1.73m2. Kidney failure is indicated at less than 15 mL/min/1.73m2. Performed By: #### 2 [id number] ####[facility] [address] [place] [address] Ambulatory Visit Summaryon 0 11-10-2021 Ambulatory Visit Summary Normal [facility] Consent for Treatmenton 10-29 Consent for Treatment [id number] :127 Normal [facility] Family Medicine Office/Clini c Noteon 11-10-2021 Family Medicine Office/Clinic Note Normal [facility] Comment on above: Result Comment: Elec tronically Signed By: Echo MANDEL CNP\.gisela\Date and Time Signed: 11/10/21 14:31 EDT MICRO OTHER TESTSOrdered By: Rhett Miranda on 11-10-2021 Rapid COV Int NEG Ctl Pass (11/10/21 2:56 PM) Normal [facility] UA SS Rapid COV Int POS Ctl Pass (11/10/21 2:56 PM) Normal FT Man UA SS SARS-CoV-2 (COVID-19) RNA ZANDRA+probe Ql (Unsp spec) Not Detected (11/10/21 2:56 PM) Normal Not Detected [facility] UA SS Patient Educationon 11-11-19 Patient Education Normal [facility] Rapid COVID Antigen ([facility])on 11-10-2021 Rapid COV Int NEG Ctl Pass Normal Fis [facility] Comment on above: Performed By: #### 2 [id number] ####[facility] [address] [place] [address] Rapid COV Int POS Ctl Pass Normal Fis [facility] Comment on above: Performed By: #### 2 [id number] ####[facility] [address] [place] [address] SARS-CoV-2 (COVID-19) RNA ZANDRA+probe Ql (Unsp spec) Not detected Normal Not Detected [facility] Comment on above: Result Comment: The SnagFilmsitor? System for Rapid Detection of SARS-CoV-2 is a chromatographic digital immunoassay intended for the direct and qualitative detection of SARS-CoV-2 nucleocapsid antigens in nasal swabs from individuals who are suspected of COVID-19 by their healthcare provider within the first five days of the onset of symptoms. Negative results should be treated as presumptive, do not rule out SARS-CoV-2 infection and should not be used as the sole basis for treatment or patient management decisions, including infection control decisions. Negative results should be considered in the context of a patient?s recent exposures, history and the presence of clinical signs and symptoms consistent with COVID-19, and confirmed with a molecular assay, if necessary, for patient management. For in vitro diagnostic use. In the [place], only for use under an Emergency Use Authorization. In the [place], this test has not been FDA cleared or approved; this test has been authorized by FDA under an EUA for use by authorized laboratories; use by laboratories certified under the CLIA, 42 U.S.C. ?263a, that meet requirements to perform moderate, high, or waived complexity tests and at the Point of Care (POC), i.e., in patient care settings operating under a CLIA Certificate of Waiver, Certificate of Compliance, or Certificate of Accreditation.This test has been authorized only for the detection of proteins from SARS-CoV-2, not for any other viruses or pathogens; and, in the [place], this test is only authorized for the duration of the declaration that circumstances exist justifying the authorization of emergency use of in vitro diagnostics for detection and/or diagnosis of the virus that causes COVID-19 under Section 564(b)(1) of the Act, 21 U.S.C. ? 360bbb-3(b)(1), unless the authorization is terminated or revoked sooner. Performed By: #### 2 [id number] ####[facility] [address] [place] [address] Employed in Healthcare NO Normal [facility] Comment on above: Performed By: #### 2 [id number] ####[facility] [address] [place] [address] First Test Unknown [facility] Comment on above: Performed By: #### 2 [id number] ####[facility] [address] [place] [address] Hospitalized? NO [facility] Comment on above: Performed By: #### 2 [id number] ####[place] [address] [place] [address] ICU NO [facility] Comment on above: Performed By: #### 2 [id number] ####[place] [address] [place] [address] ? NO [facility] Comment on above: Performed By: #### 2 [id number] ####[place] [address] [address] Resides in a Congregate Care Setting NO [facility] Comment on above: Performed By: #### 2 [id number] ####[facility] [address] [place] [address] Symptomatic as defined by CDC YES [facility] Comment on above: Performed By: #### 2 [id number] ####[facility] [address] [place] [address] BUNon 08-11-2021 Urea nitrogen [Mass/Vol] 24.0 mg/dL Critically high 7.0-18.0 [facility] Comment on above: Performed By: #### REBECA BAUTISTA #### [facility] [address] [place] [address] Dr. Román Frausto CREATININEon 08-11-2021 Creatinine [Mass/Vol] 1.15 mg/dL Critically high 0.52-1.04 [facility] Comment on above: Performed By: #### B UN, CREA #### [facility] [address] [address] [address] Román Frausto EGFR-AF JAPANESE 56 mL/min/1.73m2 Critically low >=60 [facility] Comment on above: Performed By: #### B UN, CREA #### [facility] [address] [address] [address] Román Frausto EGFR-NON AF JAPANESE 46 mL/min/1.73m2 Critically low >=60 [facility] Comment on above: Performed By: #### B UN, CREA #### [facility] [address] [address] [address] Román Frausto CT LSPINE WO W CONon 022 CT LSPINE WO W CON EXAMINATION: CT TSPI NE WO W CON, CT LSPINE WO W CON HISTORY: Secondary malignant neoplasm of bone COMPARISON: No relevant comparison available. FINDINGS: BONES: T5-6: Prominent sclerosis and anterior margin of the contiguous endplates suspected secondary to tozv-jv-ajmq contact and degenerative changes. T7: Complete loss of height and destruction with anterior and posterior displacement of the duffy resulting in marked central canal narrowing. T8, T9, T11: Mild compression fractures suspected to be chronic. L2, 3, 4, 5: Small areas of sonolucency which may represent metastasis. A larger 17 mm area within L3 may represent a hemangioma. Incidental Schmorl's nodes at multiple levels projecting into the inferior endplates of thoracic and lumbar vertebral bodies. Multilevel mild-moderate degenerative facet arthropathy. Moderate left convex curvature of the lumbar spine. DISC SPACES: Marked narrowing C6-7, T7-8, L2-3, L3-4, L5-S1. Multilevel moderate and mild narrowing. PARASPINOUS: Right renal cyst, nonspecific but favoring benign etiology. OTHER: Negative. IMPRESSION: 1. T7 marked compression fracture with complete loss of height; post traumatic versus pathologic. Retropulsion of the posterior wall causing marked central canal narrowing. 2. Several areas within L2-L5 vertebral bodies suspicious for metastatic disease. Consider nuclear medicine whole body bone scan for evaluation of all skeletal structures. 3. Multilevel marked degenerative disc disease, degenerative facet arthropathy, and what is suspected to be mild, old compression fractures at multiple levels. Electronically authenticated by: PIEDAD LAUREANO Date: 2021-08-11 10:49 Normal [facility] ANES POSTPROC EVALon 021 ANES POSTPROC EVAL HNO ID: [id number] Author: Isabel Tirado MD Service: Anesthesiology Author Type: Anesthesiologist Type: Anesthesia Postprocedure Evaluation Filed: 12/03/2020 11:29 AM Note Text: POST ANESTHESIA EVALUATION NOTE : 1945 Procedure Summary Date: 12/03/20 Room / Location: AV ENDO 01 / AV ENDO Anesthesia Start: 1005 Anesthesia Stop: 1015 Procedure: EGD (N/A Throat) Diagnosis: Dysphagia, unspecified type Surgeons: Marty Mcmanus MD Responsible Provider: Isabel Tirado MD Anesthesia Type: MAC ASA Status: 3 Anesthesia Type: MAC Last vitals Vitals Value Taken Time BP 149/69 12/03/20 1040 Temp 36.9 ?C (98.4 ?F) 12/03/20 1017 Pulse 64 12/03/20 1040 Resp 16 12/03/20 1040 SpO2 95 % 12/03/20 1040 Post Anesthesia Patient Status Patient Evaluation: bedside. Anticipated Disposition: phase 2 then home. Neurological Status: aware and responsive. Pulmonary Status: breathing comfortably on room air Airway Control: returned to baseline unsupported. Cardiovascular Status: stable. Pain Management: clinically adequate - multimodal analgesia pain management approach Postoperative Hydration: acceptable. Intraoperative Events: no significant anesthesia events Recommendation: continue current plan of care and further care per PACU/ICU/floor team. No complications documented. SIGNATURE: Isabel Tirado MD PATIENT NAME: Yenny Felix DATE: December 03, 2020 TIME: 11:29 AM CSN: [id number] [facility] ANES PRE-OPon 12-03-2020 ANES PRE-OP HNO ID: [id number] Author: Isabel Tirado MD Service: Anesthesiology Author Type: Anesthesiologist Type: Anesthesia Preprocedure Evaluation Filed: 12/03/2020 10:09 AM Note Text: ANESTHESIOLOGY DAY OF SURGERY NOTE : 1945 Procedure(s) (LRB): EGD (N/A) Surgeon(s): Marty Mcmanus MD Estimated body mass index is 34.19 kg/m? as calculated from the following: Height as of 12/02/20: 174 cm (5' 8.5 ). Weight as of 12/02/20: 103.5 kg (228 lb 3.2 oz). Most recent hematocrit and potassium results: Potassium 4.8 12/02/2020 Relevant Problems CARDIO (+) CHF (congestive heart failure) (HCC) ENDO (+) Hypothyroidism Other (+) Chronic gout of multiple sites I - PHYSICAL EVALUATION AIRWAY Patient intubated: No. Tracheostomy tube not present Mallampati: II. TM distance: >3 FB. Neck ROM: full ROM without neurological symptoms. Mouth opening: adequate. Short neck: no. Thick neck: no DENTAL Normal dental observations. Dental findings: teeth intact. Additional exam findings: no II - ANESTHESIA PLAN ASA Score: 3 Anesthetic Plan: MAC NPO Status: adequate Monitoring plan: Standard ASA. Postoperative analgesic plan: parenteral or oral opioids and multimodal analgesia. Anesthetic Risks, Benefits, Alternatives, Personnel Discussed. Consent obtained from: patient.Patient / Surrogate agrees to blood products: blood products not planned DNR status not reviewed with patient and/or family prior to surgery. Significant changes in the patient condition since the History and Physical, not otherwise documented in primary service progress note: no. Potential Anesthesia issues that may suggest increased risk of complications or contraindication to planned procedure: none. Vitals Value Taken Time BP 155/89 12/03/20 0950 Pulse Resp 16 12/03/20 0950 Temp 35.7 ?C (96.3 ?F) 12/03/20 0950 SpO2 99 % 12/03/20 0950 Facility-Administered Medications as of 12/03/2020 Medication Dose Route Frequency - NaCl 0.9% iv infusion 50 mL/hr INTRAVENOUS CONTINUOUS Outpatient Medications as of 12/03/2020 Medication Sig - Omeprazole Magnesium (PRILOSEC OTC) 20 mg tablet Take 1 tablet by mouth once daily. - acetaminophen (TYLENOL) 325 mg tablet Take 650 mg by mouth every 6 hours as needed. - allopurinol (ZYLOPRIM) 100 mg tablet TAKE 1 TABLET BY MOUTH ONCE DAILY FOR 90 DAYS - carvedilol (COREG) 6.25 mg tablet Take 6.25 mg by mouth twice daily with meals. - cholecalciferol (VITAMIN D3) 50 mcg (2,000 unit) tablet Take 2,000 Units by mouth once daily. - dorzolamide-timolol (COSOPT) 22.3-6.8 mg/mL ophthalmic solution Use 1 Drop in both eyes twice daily. - furosemide (LASIX) 40 mg tablet Take 10 mg by mouth as needed. - levothyroxine (SYNTHROID) 50 mcg tablet Take 50 mcg by mouth every morning. Take On an Empty Stomach - loratadine (CLARITIN) 10 mg tablet Take 10 mg by mouth at bedtime as needed. - losartan (COZAAR) 25 mg tablet TAKE 1 TABLET BY MOUTH ONCE DAILY FOR 90 DAYS - Magnesium Oxide 500 mg tab Take 500 mg by mouth once daily. - therapeutic multivitamin-minerals (THERA-M PLUS) 9 mg iron-400 mcg tablet Take 1 tablet by mouth once daily. - Lactobacillus acidophilus (PROBIOTIC ORAL) Take by mouth. - flaxseed oil (OMEGA 3 ORAL) Take by mouth. - lactase (ULTRA DAIRY DIGESTIVE ORAL) Take by mouth. - fluvoxaMINE (LUVOX) 100 mg tablet Take 100 mg by mouth twice daily. - rivaroxaban (XARELTO) 20 mg tablet TAKE 1 TABLET BY MOUTH ONCE DAILY WITH SUPPER - simvastatin (ZOCOR) 40 mg tablet Take 40 mg by mouth daily at bedtime. - spironolactone (ALDACTONE) 25 mg tablet TAKE 1 2 (ONE HALF) TABLET BY MOUTH ONCE DAILY FOR 90 DAYS I have interviewed and examined the patient. I have reviewed the medical record and/or the pre-anesthesia evaluation, pertinent labs, and test results. This contains updated information obtained within 48 hours of Surgery/Procedure. SIGNATURE: Isabel Tirado MD PATIENT NAME: Yenny Felix DATE: December 03, 2020 TIME: 10:09 AM CSN: [id number] [facility] HISTORY PHYSICALon HISTORY PHYSICAL HNO ID: [id number] Author: Marty Mcmanus MD Service: General Surgery Author Type: Physician Type: HANDP Filed: 12/03/2020 9:13 AM Note Text: Here for EGD PE: HEENT: PERRLA Neck: supple Chest: Clear Heart:RRR Abdomen: Benign Neuro: wnl Back, spine, extremities: wnl Normal [facility] Basic Metabolic Panlon 12-02 Anion gap [Moles/Vol] 10 mmol/L Normal 9-18 [facility] Calcium [Mass/Vol] 10.2 mg/dL Normal 8.5-10.2 [facility] Chloride [Moles/Vol] 103 mmol/L Normal 97-105 [facility] CO2 [Moles/Vol] 25 mmol/L Normal 22-30 [facility] Creatinine [Mass/Vol] 0.88 mg/dL Normal 0.58-0.96 [facility] eGFR- Amer. >60 Normal [facility] eGFR-All Other Races >[address] [facility] Comment on above: Result Comment: eGFR (Estimated GFR) Units of measure: mL/min/1.73 meters squared eGFR is derived from the reexpressed MDRD Study equation using the following parameters: serum creatinine, age, gender and race. The creatinine assay has been calibrated to be traceable to IDMS. An eGFR <60 mL/min/1.73m2 for >3 months is consistent with chronic kidney disease. Refer to KDOQI guidelines for clinical interpretation. In patients with unstable renal function, e.g. those with acute kidney injury, the eGFR may not accurately reflect actual GFR. Glucose [Mass/Vol] 85 mg/dL Normal 74-99 [facility] Comment on above: Result Comment: The [place] Diabetes Association (ADA) provides guidance for cutoff values for fasting glucose and random glucose. The ADA defines fasting as no caloric intake for at least 8 hours. Fasting plasma glucose results between 100 to 125 mg/dL indicate increased risk for diabetes (prediabetes). Fasting plasma glucose results greater than or equal to 126 mg/dL meet the criteria for diagnosis of diabetes. In the absence of unequivocal hyperglycemia, results should be confirmed by repeat testing. In a patient with classic symptoms of hyperglycemia or hyperglycemic crisis, random plasma glucose results greater than or equal to 200 mg/dL meet the criteria for diagnosis of diabetes. Reference: Standards of Medical Care in Diabetes 2016, [place] Diabetes Association. Diabetes Care. 2016.39(Suppl 1). Potassium [Moles/Vol] 4.8 mmol/L Normal 3.7-5.1 [facility] Sodium [Moles/Vol] 138 mmol/L Normal 136-144 [facility] Urea nitrogen [Mass/Vol] 24 mg/dL High 7-21 [facility] HISTORY PHYSICALon HISTORY PHYSICAL HNO ID: [id number] Author: Sherin Ham APRN.[facility] Service: ? Author Type: Nurse Specialist Type: HANDP Filed: 12/02/2020 12:21 PM Note Text: HISTORY AND PHYSICAL EXAMINATION SERVICE DATE: 12/02/2020 SERVICE TIME: 12:19 PM PRIMARY CARE PHYSICIAN: Tika Joy MD REASON FOR VISIT: Yenny Felix is a 75 year old female who is scheduled for : EGD at the request of Dr. Marty Mcmanus for consultation. My final recommendation will be communicated back to the requesting physician by way of shared medical record or letter. Subjective The patient has the following: ACTIVE PROBLEM LIST Primary Osteoarthritis of Both Knees Dysphagia Chf (Congestive Heart Failure) (Hcc) Hypothyroidism Neuropathy Icd (Implantable Cardioverter-Defibrillat or) in Place Chronic Gout of Multiple Sites Bilateral Malignant Neoplasm of Overlapping Sites of Breast in Female (Hcc) Other Hyperlipidemia Nonischemic Congestive Cardiomyopathy (Hcc) CHIEF COMPLAINT: Patient stated I have difficulty with swallowing food so will have EGD HPI: H/O 75 year old female stated she has had difficulty with swallowing food. She has had occasional N/V. No mid abdominal pain. Consulted Dr. Mcmanus. After exam, Dx with Dysphagia Unspecified Type. REVIEW OF SYSTEMS: General: BMI 34.1 Neurological: H/O neuropathy has tingling both hands occasionaly. No history of TIA's, stroke, PUBLIC HEALTH tumor, impaired sensorium, hemiplegia, paraplegia or quadraplegia. No neurological symptoms or problems. Respiratory: No history of current cough or dyspnea, or pneumonia in the past 6 weeks. No history of respiratory/pulmonary symptoms or problems. Cardiovascular: H/O Nonischemic Congestive Cardiomyopathy Positive for: AICD/PPM ([employer] 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 Endocrine: Positive for: hypothyroidism (takes med daily). Hematology: No history of bleeding or clotting disorder. Patient is not taking anti-coagulation or platelet medications. No history of hematological symptoms or problems. Oncology: H/O Bilateral Breast CA had rigttMastectomy 1998 had radiation and chemotherapy Psych: No history of psychiatric symptoms or problems. Musculoskeletal: Positive for: joint pain (generalized ,both knees,neck). Skin: Negative for lesions, rash and itching. PAST MEDICAL HISTORY Diagnosis Date - Bilateral malignant neoplasm of overlapping sites of breast in female (HCC) right - CHF (congestive heart failure) (HCC) - Chronic gout of multiple sites - Dysphagia - History of bilateral breast cancer - Hypothyroidism - ICD (implantable cardioverter-defibrillat or) in place 2015 [place] - Neuropathy - Nonischemic congestive cardiomyopathy (HCC) - Other hyperlipidemia PAST SURGICAL HISTORY Procedure Laterality Date - CHOLECYSTECTOMY - COLONOSCOPY - EGD - FOOT SURGERY HX Left some excess bones removed - KNEE ARTHROSCOPY Right - MASTECTOMY HX Right FAMILY HISTORY Problem Relation Age of Onset - Diabetes Mother - Hypertension Mother - other ([place]) Father - Cancer Sister Social History Tobacco Use - Smoking status: Never Smoker - Smokeless tobacco: Never Used Substance Use Topics - Alcohol use: Yes Comment: OCC - Drug use: Never Prior to Admission medications as of 12/02/20 1025 Medication Sig Last Dose Taking esomeprazole (NEXIUM 24HR) 20 mg capsule Take 20 mg by mouth DAILY (6 AM). Yes acetaminophen (TYLENOL) 325 mg tablet Take 650 mg by mouth every 6 hours as needed. Yes allopurinol (ZYLOPRIM) 100 mg tablet TAKE 1 TABLET BY MOUTH ONCE DAILY FOR 90 DAYS Yes carvedilol (COREG) 6.25 mg tablet Take 6.25 mg by mouth twice daily with meals. Yes dorzolamide-timolol (COSOPT) 22.3-6.8 mg/mL ophthalmic solution Use 1 Drop in both eyes twice daily. Yes furosemide (LASIX) 40 mg tablet Take 10 mg by mouth as needed. Yes levothyroxine (SYNTHROID) 50 mcg tablet Take 50 mcg by mouth every morning. Take On an Empty Stomach Yes loratadine (CLARITIN) 10 mg tablet Take 10 mg by mouth at bedtime as needed. Yes losartan (COZAAR) 25 mg tablet TAKE 1 TABLET BY MOUTH ONCE DAILY FOR 90 DAYS Yes Magnesium Oxide 500 mg tab Take 500 mg by mouth once daily. Yes simvastatin (ZOCOR) 40 mg tablet Take 40 mg by mouth daily at bedtime. Yes spironolactone (ALDACTONE) 25 mg tablet TAKE 1 2 (ONE HALF) TABLET BY MOUTH ONCE DAILY FOR 90 DAYS Yes Lactobacillus acidophilus (PROBIOTIC ORAL) Take by mouth. Yes calcium carbonate (CALCIUM 600 ORAL) Take 1 Dose by mouth once daily. 12/01/20 Omeprazole Magnesium (PRILOSEC OTC) 20 mg tablet Take 1 tablet by mouth once daily. cholecalciferol (VITAMIN D3) 50 mcg (2,000 unit) tablet Take 2,000 Units by mouth once daily. 12/01/20 fluvoxaMINE (SURINDER (more content not included)... 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 Allergies As of Date: 11/20/2020 Noted Allergy Reaction CECLOR (CEFACLOR) 01/08/2020 2 - Rash 7 - Swelling Comments: And redness Date Reviewed: 07/28/2020 Reviewed by: Penny Treadwell LPN - Fully Assessed Reason for Visit: Pre-Op Teaching [134] Prescriptions as of 11/20/2020 - Omeprazole Magnesium (PRILOSEC OTC) 20 mg tablet Take 1 tablet by mouth once daily. - acetaminophen (TYLENOL) 325 mg tablet Take 650 mg by mouth every 6 hours as needed. - allopurinol (ZYLOPRIM) 100 mg tablet TAKE 1 TABLET BY MOUTH ONCE DAILY FOR 90 DAYS - carvedilol (COREG) 6.25 mg tablet Take 6.25 mg by mouth twice daily with meals. - cholecalciferol (VITAMIN D3) 50 mcg (2,000 unit) tablet Take 2,000 Units by mouth once daily. - dorzolamide-timolol (COSOPT) 22.3-6.8 mg/mL ophthalmic solution Use 1 Drop in both eyes twice daily. - fluvoxaMINE (LUVOX) 100 mg tablet Take 100 mg by mouth twice daily. - furosemide (LASIX) 40 mg tablet Take 10 mg by mouth at bedtime as needed. - levothyroxine (SYNTHROID) 50 mcg tablet Take 50 mcg by mouth every morning. Take On an Empty Stomach - loratadine (CLARITIN) 10 mg tablet Take 10 mg by mouth at bedtime as needed. - losartan (COZAAR) 25 mg tablet TAKE 1 TABLET BY MOUTH ONCE DAILY FOR 90 DAYS - Magnesium Oxide 500 mg tab Take 500 mg by mouth once daily. - therapeutic multivitamin-minerals (THERA-M PLUS) 9 mg iron-400 mcg tablet Take 1 tablet by mouth once daily. - rivaroxaban (XARELTO) 20 mg tablet TAKE 1 TABLET BY MOUTH ONCE DAILY WITH SUPPER - simvastatin (ZOCOR) 40 mg tablet Take 40 mg by mouth daily at bedtime. - spironolactone (ALDACTONE) 25 mg tablet TAKE 1 2 (ONE HALF) TABLET BY MOUTH ONCE DAILY FOR 90 DAYS - Lactobacillus acidophilus (PROBIOTIC ORAL) Take by mouth. - flaxseed oil (OMEGA 3 ORAL) Take by mouth. - lactase (ULTRA DAIRY DIGESTIVE ORAL) Take by mouth. Problem List As Of Date 11/20/2020 Noted Resolved Primary osteoarthritis of both knees [M17.0] 07/03/2020 Encounter Status:Closed by EMA HUA RN on 11/20/20 [facility] Jayne 07-28-2020 CNOV Office Visit (OTOLCC ) -------- YENNY FELIX ([id number]) 1945 F Date Time Provider Department 07/28/20 4:00 PM EVENS OROPEZA ([facility]) OTOLCC During your visit today, we recorded the following information about you: Temperature Pulse Respiration 98.4 degrees 60/minute 16/minute Evens Oropeaz APRN.CNP 07/28/2020 5:10 PM Signed Ms. Felix is a 75 year old female who comes in for evaluation of sinus issues and sore throat. 75yo F presents to clinic for chronic maxillary sinus issues and trouble swallowing for the last 6 months that has started to worsen. Patient reports that she thinks that the increase in saliva is due to her sinuses. Patient constantly feels like she needs to clear her throat. Previously worked up for acid reflux and was on PPIs then transitioned to Pepcid which the patient states has been helping with her symptoms. Trouble swallowing both liquids and solids, occasionally chokes when eating. Patient has tried smaller portions, more chewing between bites, and more liquid to help but still experiencing these issues. When she does swallow, she feels a thick mucus sensation, sometimes goes down the wrong pipe. Patient is currently experiencing sinus pressure with mild headache. Patient endorses PND. Never been treated with antibiotics in the past. 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 Past history : PAST MEDICAL HISTORY Diagnosis Date - CHF (congestive heart failure) (HCC) - History of bilateral breast cancer - Hypothyroidism - Neuropathy Current medication: Current Outpatient Medications Medication Sig - acetaminophen (TYLENOL) 325 mg tablet Take 650 mg by mouth every 6 hours as needed. - allopurinol (ZYLOPRIM) 100 mg tablet TAKE 1 TABLET BY MOUTH ONCE DAILY FOR 90 DAYS - carvedilol (COREG) 6.25 mg tablet Take 6.25 mg by mouth twice daily with meals. - cholecalciferol (VITAMIN D3) 50 mcg (2,000 unit) tablet Take 2,000 Units by mouth once daily. - dorzolamide-timolol (COSOPT) 22.3-6.8 mg/mL ophthalmic solution Use 1 Drop in both eyes twice daily. - famotidine (PEPCID) 20 mg tablet Take 20 mg by mouth at bedtime as needed. - fluvoxaMINE (LUVOX) 100 mg tablet Take 100 mg by mouth twice daily. - furosemide (LASIX) 40 mg tablet Take 10 mg by mouth at bedtime as needed. - levothyroxine (SYNTHROID) 50 mcg tablet Take 50 mcg by mouth every morning. Take On an Empty Stomach - loratadine (CLARITIN) 10 mg tablet Take 10 mg by mouth at bedtime as needed. - losartan (COZAAR) 25 mg tablet TAKE 1 TABLET BY MOUTH ONCE DAILY FOR 90 DAYS - Magnesium Oxide 500 mg tab Take 500 mg by mouth once daily. - therapeutic multivitamin-minerals (THERA-M PLUS) 9 mg iron-400 mcg tablet Take 1 tablet by mouth once daily. - rivaroxaban (XARELTO) 20 mg tablet TAKE 1 TABLET BY MOUTH ONCE DAILY WITH SUPPER - simvastatin (ZOCOR) 40 mg tablet Take 40 mg by mouth daily at bedtime. - spironolactone (ALDACTONE) 25 mg tablet TAKE 1 2 (ONE HALF) TABLET BY MOUTH ONCE DAILY FOR 90 DAYS - Lactobacillus acidophilus (PROBIOTIC ORAL) Take by mouth. - flaxseed oil (OMEGA 3 ORAL) Take by mouth. - lactase (ULTRA DAIRY DIGESTIVE ORAL) Take by mouth. No current facility-administered medications for this visit. Allergies: ALLERGIES Allergen Reactions - Ceclor [Cefaclor] Rash, Swelling And redness Social history: Social History Tobacco Use - Smoking status: Never Smoker - Smokeless tobacco: Never Used Substance Use Topics - Alcohol use: Yes - Drug use: Never Family history: No family history on file. There are no exam notes on file for this visit. Physical exam: General Appearance: 75 year old female is alert, oriented, not in acute distress. Hearing is grossly normal, voice is raspy. There is no tenderness with percussion over the paranasal sinuses. Eyes: PEERLA, extraocular movements are full. Nose: Clean, septum is straight. There are no polyps. There is no discharge. Oropharynx: Teeth are in good repair. Lips, gums, tongue and posterior pharynx are within normal limits. Gag reflex is intact. Nasopharynx: Visualization is limited. Hypopharynx: Visualization is limited. Neck: No masses palpated. Thyroid is not enlarged. Trachea is in the midline. Ears: Both ear canals are clean. Both TMs are intact and mobile. Impression: Throat discomfort, swallowing problem, and hoarseness of voice exact etiology unclear. GERD may be contributing. Plan of management: I will perform fiberoptic laryngoscopy and discuss further management options with her. Procedure: After the procedure was explained to the patient and patient agreed to have the procedure done 1% Sushil-Synephrine and 4% Xylocaine was sprayed to both nasal cavities. Fiberoptic scope was inserted through the right nasal airway. Right nasal airway was normal. Nasopharynx was normal. (more content not included)... [facility] CNOVon 07-03-2020 CNOV Office Visit (LOORRM ) -------- MARIA ALEJANDRAYENNY ([id number]) 1945 F Date Time Provider Department 07/03/20 9:20 AM MARTIN GIBSON During your visit today, we recorded the following information about you: Martin Gibson MD 07/03/2020 8:53 AM Signed This document has been created with the use of voice recognition technology. It may contain inaccuracies: misspellings, inaccurate syntax or word sense that escaped review. CHIEF COMPLAINT: Yenny Felix is a 75 year old female who presents today for follow up of bilateral knee pain secondary to osteoarthritis. HISTORY OF PRESENT ILLNESS: PAIN EVALUATION 07/03/2020 0839 Pain Level: 5 Pain Location: ? bilateral knees Description: Aching Duration Units: Unknown Frequency: Intermittent Intervention: Reposition;Relaxation;Po sitioning;Medication;Hea t HISTORY: Yenny Felix is here for follow up of complaints of bilateral knee pain right greater than left. She states that the injection she received in December of last year offered relief. She requested we inject both knees again today. No new injury. No hip or neurologic complaints. No other musculoskeletal complaints ROS: REVIEW OF SYMPTOMS: Constitutional: patient denies any recent fever or significant change in weight Gastrointestinal: patient denies any current abdominal discomfort Musculoskeletal: as noted in the HPI Neurologic: as noted in the HPI SOCIAL HISTORY: Tobacco Use: Not on file ALLERGIES: ALLERGIES Allergen Reactions - Ceclor [Cefaclor] Rash, Swelling And redness PAST MEDICAL HISTORY: PAST MEDICAL HISTORY Diagnosis Date - CHF (congestive heart failure) (HCC) - History of bilateral breast cancer - Hypothyroidism - Neuropathy SOCIAL HISTORY: Tobacco Use: Not on file EXAMINATION: GENERAL: Appears healthy, well-nourished, no deformities. ORIENTATION: Alert and oriented to person place and time HABITUS: Normal GAIT: Normal, the patient did not have trouble getting onto the exam table. bilateral knee exam: No effusion, Tenderness with patellar apprehension Right knee valgus left knee neutral alignment Active full extension, flexion 120. Good patellar tracking/mild patella femoral crepitation Mild pain with palpating medial compartment, mild pain with palpating lateral compartment. Stable to varus and valgus stresses. Ne is negative Negative anterior/posterior drawer. Palpable dorsalis pedis pulse Calf soft and nontender. Hip exam negative Intact sensation to light touch distally. . RADIOGRAPHS: XR Obtained today and personally reviewed by myself demonstrating none today x-rays some January 08, 2020 reviewed with severe lateral compartment osteoarthritis on the right moderate on the left IMPRESSION: Encounter Diagnosis ICD-10-CM 1. Primary osteoarthritis of both knees M17.0 Large Joint Arthro/Inj: bilateral knee joints The risks, benefits and alternatives of the procedure were reviewed with the patient/surrogate, who agreed to proceed. Written Consent Obtained: Yes Sign In Communication: Completed Time Out: Time Out completed The Time-Out verifies the correct patient, procedure, side/site, position (if applicable) and completion and review of fire risk assessment/protocols (if appropriate): Affirmation of Time Out: Yes Signout Discussion: yes 07/03/2020 8:52 AM The procedure site was prepped in the usual sterile fashion. Allergies were reviewed Site: bilateral knee joints Medications (Right): 40 mg triamcinolone acetonide 40 mg/mL Medications (Left): 40 mg triamcinolone acetonide 40 mg/mL Anesthetics (Right): 4 mL lidocaine (PF) 10 mg/mL (1 %) Anesthetics (Left): 4 mL lidocaine (PF) 10 mg/mL (1 %) Outcome: Tolerated well, no immediate complications Post-injection instructions were reviewed with the patient and the patient voiced understanding of these instructions. Plan: Patient with bilateral knee osteoarthritis. She requested we injected both knees today with cortisone. We again discussed surgical options especially with the right knee. We discussed intervals between injections. Follow-up as symptoms dictate Martin Gibson MD Referring Provider: SELF [200] Allergies As of Date: 07/03/2020 Noted Allergy Reaction CECLOR (CEFACLOR) 01/08/2020 2 - Rash 7 - Swelling Comments: And redness Date Reviewed: 07/03/2020 Reviewed by: Eugenie Mary) Eligio - Fully Assessed Reason for Visit: Follow Up [171] Established Patient [175] Knee Pain [132] Injections [199] Established Patient [175] Follow Up [171] Knee Pain [132] Injections [199] Primary Visit Diagnosis:Primary osteoarthritis of both knees [M17.0] Order(s):Large Joint Arthro/Inj: bilateral knee joints [OSR259] Order #: [id number] [] lidocaine (PF) 10 mg/mL (1 %) 4 mL injection (XYLOCAINE)Disp: Rfl: [] triamcinolone acetonide 40 mg (more content not included)... [facility] History and Physicalon 03-27 HIM IP Note OR Pump Tester [facility] Surgical Pathologyon 017 Surgical Pathology (NOTE)[id number] Y LABORATORIESCONSULTJAMAICA PLA[facility] PATHOLOGISTS [facility]ENTER[facility]OM[facility] [id number] [place], [place] [id number] Fax: SURGICAL PATHOLOGY CONSULTATIONPatient Name: Miroslava FELIX Rec: [id number] Number: [id number]: 03/27/2017Received: 03/27/2017Reported: 03/28/2017 09:51-- Diagnosis --1. COLON, RANDOM BIOPSIES:- NORMAL COLONIC MUCOSA.2. COLON, BIOPSIES:- ADENOMATOUS POLYP.Zack Rand,Electronically Signed Out sls/03/28/2017Clinical InformationPre-op Diagnosis: FECAL OCCULT BLOOD Operative Findings: RANDOM COLON BX'S; COLON POLYPOperation Performed: COLONOSCOPY WITH BIOPSY Source of Specimen1: RANDOM COLON BX'S2: COLON POLYPGross Description1. YENNY FELIX RANDOM COLON BX'S Multiple ely-white tissuefragments from 0.2 to 0.3 cm and are 2.4 x 0.2 x 0.1 cm in aggregate. Entirely 1cs. 2. YENNY MARIA ALEJANDRA, COLON POLYP Two ely tissue fragments, 0.3 to 0.4cm and are 0.7 x 0.3 x 0.2 cm in aggregate. Entirely 1cs. rh tmMicroscopic Description1. The mucosal architecture is normal. There is no evidence ofactive inflammation, granulomatous inflammation, ulcer, dysplasia ormalignancy.2. The biopsies demonstrate adenomatous polyp. [facility] Vital Signs Date Time Vital Sign Value Performing Clinician Todd munguia 07-11-2023 13:37-0400 Body height 175.3 cm Rambo Ansley DO [facility] 07-11-2023 13:37-0400 Body mass index (BMI) [Ratio] 33.82 kg/m2 Rambo Ansley DO [facility] 07-11-2023 13:37-0400 Body weight 103.87 kg Rambo Ansley DO [facility] 07-11-2023 13:37-0400 Diastolic blood pressure 90 mm[Hg] Rambo Ansley DO [facility] 07-11-2023 13:37-0400 Heart rate 70 /min Rambo Ansley DO Work Phone: [employer] 07-11-2023 13:37-0400 SaO2% (BldA) [Mass fraction] 100 % Rambo Ansley DO [facility] 07-11-2023 13:37-0400 Systolic blood pressure 152 mm[Hg] Rambo Ansley DO Work Phone: [employer] 06-21-2023 11:54-0500 Body height 173.99 cm MD Tika Joy Work Phone: [facility] 06-21-2023 11:54-0500 Body mass index (BMI) [Ratio] 34.4 kg/m2 MD Tika Joy Work Phone: [facility] 06-21-2023 11:54-0500 Body weight 104.32 kg MD Tika Joy Work Phone: [facility] 10-04-2022 09:29-0400 Blood Pressure Location Aron COOK [facility] 10-04-2022 09:29-0400 Diastolic blood pressure 81 mm[Hg] Aron COOK [facility] 10-04-2022 09:29-0400 Heart rate 65 /min Aron COOK [facility] 10-04-2022 09:29-0400 Systolic blood pressure 184 mm[Hg] Aron COOK [facility] 04-19-2022 09:29-0500 Blood Pressure Location Aron COOK [facility] 04-19-2022 09:29-0500 Diastolic blood pressure 82 mm[Hg] Aron COOK [facility] 04-19-2022 09:29-0500 Heart rate 77 /min Aron COOK [facility] 04-19-2022 09:29-0500 Systolic blood pressure 132 mm[Hg] Aron COOK [facility] 04-11-2022 14:24-0500 Blood Pressure Location Wilfred London [facility] 04-11-2022 14:24-0500 Diastolic blood pressure 59 mm[Hg] Wilfred London [facility] 04-11-2022 14:24-0500 Heart rate 71 /min Wilfred Marieofferson [facility] 04-11-2022 14:24-0500 Respiratory rate 18 /min Wilfred Christofferson [facility] 04-11-2022 14:24-0500 SaO2% (BldA) [Mass fraction] 96 % Wilfred Christofferson [facility] 04-11-2022 14:24-0500 Systolic blood pressure 119 mm[Hg] Wilfred Marieofferson [facility] 03-28-2022 15:29-0500 Hourly Rounding Kris MARIIA [facility] 03-28-2022 15:29-0500 Promise to Return Kris MARIIA [facility] 03-28-2022 14:29-0500 Hourly Rounding Kris MARIIA [facility] 03-28-2022 14:29-0500 Promise to Return Kris MARIIA [facility] 03-28-2022 13:14-0500 Hourly Rounding Kris MARIIA [facility] 03-28-2022 13:14-0500 Promise to Return Kris MARIIA [facility] 03-28-2022 11:17-0500 Diastolic blood pressure 88 mm[Hg] Kris MARIIA [facility] 03-28-2022 11:17-0500 Systolic blood pressure 174 mm[Hg] Kris MARIIA [facility] 03-28-2022 11:11-0500 Body temperature 97.52 [degF] Kris MARIIA [facility] 03-28-2022 11:11-0500 Diastolic blood pressure 88 mm[Hg] Kris MARIIA [facility] 03-28-2022 11:11-0500 Heart rate 66 /min Kris MARIIA [facility] 03-28-2022 11:11-0500 Mean blood pressure 117 mm[Hg] Kris MARIIA [facility] 03-28-2022 11:11-0500 SaO2% (BldA) [Mass fraction] 96 % Kris MARIIA [facility] 03-28-2022 11:11-0500 Systolic blood pressure 174 mm[Hg] Kris MARIIA [facility] 03-28-2022 07:49-0500 Body temperature 98.06 [degF] Kris MARIIA [facility] 03-28-2022 07:49-0500 Diastolic blood pressure 81 mm[Hg] Kris MARIIA [facility] 03-28-2022 07:49-0500 Heart rate 79 /min Kris MARIIA [facility] 03-28-2022 07:49-0500 Mean blood pressure 104 mm[Hg] Kris MARIIA [facility] 03-28-2022 07:49-0500 SaO2% (BldA) [Mass fraction] 95 % Kris MARIIA [facility] 03-28-2022 07:49-0500 Systolic blood pressure 151 mm[Hg] Kris MARIIA [facility] 03-28-2022 07:48-0500 Heart rate 80 /min Kris MARIIA [facility] 03-28-2022 07:48-0500 SaO2% (BldA) [Mass fraction] 96 % Kris OROPEZASLIN [facility] 03-28-2022 01:00-0500 Body temperature 98.06 [degF] Kris OROPEZASLIN [facility] 03-28-2022 01:00-0500 Mean blood pressure 105 mm[Hg] Krisngoc OROPEZASLIN [facility] 03-28-2022 01:00-0500 Respiratory rate 17 /min Krisngoc OROPEZASLIN [facility] 03-27-2022 23:09-0500 FIO2 40 % Kris CHIANG [facility] 03-27-2022 21:00-0500 Mean blood pressure 103 mm[Hg] Krisngoc OROPEZASLIN [facility] 03-27-2022 21:00-0500 Respiratory rate 18 /min Krisngoc OROPEZASLIN [facility] 03-27-2022 20:05-0500 Mean blood pressure 110 mm[Hg] Kris OROPEZASLIN [facility] 03-27-2022 17:48-0500 Blood Pressure Location Krisngoc OROPEZASLIN [facility] 03-27-2022 17:48-0500 BP/Pulse Patient Position Krisngoc OROPEZASLIN [facility] 03-27-2022 17:48-0500 Mean blood pressure 101 mm[Hg] Krisngoc OROPEZASLIN [facility] 03-27-2022 15:53-0500 Respiratory rate 16 /min Krisngoc OROPEZASLIN [facility] 03-23-2022 14:00-0500 Respiratory rate 19 /min Krisngoc OROPEZASLIN [facility] 03-23-2022 04:27-0500 Heart rate 71 /min Kris MARIIA [facility] 03-23-2022 04:00-0500 Respiratory rate 11 /min Krisngoc OROPEZASLIN [facility] 03-23-2022 03:00-0500 Respiratory rate 18 /min Krisngoc OROPEZASLIN [facility] 03-23-2022 00:48-0500 gluc 112 mg/dL Kris MARIIA [facility] 03-23-2022 00:48-0500 gluc Krisngoc OROPEZASLIN [facility] 03-23-2022 00:46-0500 Heart rate 83 /min Kris OROPEZASLIN [facility] 11-14-2021 01:00-0400 Body temperature 98.42 [degF] [facility] 11-14-2021 01:00-0400 Diastolic blood pressure 70 mm[Hg] [facility] 11-14-2021 01:00-0400 Heart rate 73 /min [facility] 11-14-2021 01:00-0400 Mean blood pressure 92 mm[Hg] [facility] 11-14-2021 01:00-0400 Respiratory rate 19 /min [facility] 11-14-2021 01:00-0400 SaO2% (BldA) [Mass fraction] 99 % [facility] 11-14-2021 01:00-0400 Systolic blood pressure 135 mm[Hg] [facility] 11-14-2021 00:00-0400 Body temperature 98.6 [degF] [facility] 11-14-2021 00:00-0400 Diastolic blood pressure 67 mm[Hg] [facility] 11-14-2021 00:00-0400 Heart rate 72 /min [facility] 11-14-2021 00:00-0400 Mean blood pressure 86 mm[Hg] [facility] 11-14-2021 00:00-0400 Systolic blood pressure 123 mm[Hg] [facility] 11-13-2021 23:00-0400 Diastolic blood pressure 78 mm[Hg] [facility] 11-13-2021 23:00-0400 Heart rate 70 /min [facility] 11-13-2021 23:00-0400 Respiratory rate 18 /min [facility] 11-13-2021 23:00-0400 SaO2% (BldA) [Mass fraction] 98 % [facility] 11-13-2021 23:00-0400 Systolic blood pressure 120 mm[Hg] [facility] Encounters Encounter Date Encounter Type Care Provider Facility Start: 01-02-2024 End: 01-02-2024 ambulatory [facility] Start: 12-26-2023 End: 12-26-2023 ambulatory ADRIAN PURCELL Not Available Start: 12-25-[address] [facility] Start: 12-20-2023 End: 12-20-2023 ambulatory [facility] Start: 12-20-2023 End: 12-20-2023 ambulatory DANIEL FERRER [facility] Start: 11-21-2023 End: 11-21-2023 ambulatory [facility] Start: 11-01-2023 End: 11-01-2023 ambulatory ADRIAN PURCELL Not Available Start: 10-18-2023 End: 10-18-2023 ambulatory [facility] Start: 10-12-2023 End: 10-12-2023 ambulatory YOSEPH Nelson [facility] Start: 08-22-2023 End: 08-22-2023 ambulatory ADRIAN PURCELL Not Available Start: 07-11-2023 End: 07-11-2023 Office outpatient visit 25 minutes Rambo Duke DO Work Phone: [facility] Comment on above: Cardiomyopathy (Prim jian Dx); Persistent atrial fibrillation (CMS-HCC); Chronic systolic heart failure (CMS-HCC); Left bundle branch block (LBBB) Start: 07-11-2023 End: 07-11-2023 ambulatory RAMBO DUKE [facility] Start: 07-10-2023 Telephone encounter [facility] Comment on above: Appointment Start: 06-26-2023 End: 06-26-2023 ambulatory [facility] Comment on above: 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, mild stage Start: 06-21-2023 End: 06-21-2023 ambulatory Jose Francisco Tong II Facility:[facility] Start: 06-21-2023 End: 06-21-2023 ambulatory MD Tika Joy Work Phone: [facility] Work Phone: Start: 06-21-2023 End: 06-21-2023 Patient encounter procedure MD Tika Joy Work Phone: [facility] Work Phone: Start: 05-06-2023 Refill Myron Anderson 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 Work Phone: [facility] Comment on above: Med Refill Start: 02-14-2023 End: 02-14-2023 ambulatory ZAC COCHRAN [facility] Start: 12-13-2022 End: 12-13-2022 [facility] Start: 10-04-2022 End: 10-05-2022 ambulatory Aron HANCOCK Facility:[facility] Start: 10-04-2022 End: 10-04-2022 Patient encounter procedure Aron HANCOCK [facility] Start: 10-03-2022 ambulatory GIO Moreno ity:[facility] Start: 09-30-2022 End: 09-30-2022 ambulatory Tika Joy Facility:[facility] Start: 09-30-2022 End: 09-30-2022 ambulatory MD Tika Joy Work Phone: [facility] Work Phone: Start: 09-30-2022 End: 09-30-2022 Patient encounter procedure MD Tika Joy Work Phone: [facility] [place] Work Phone: Start: 04-19-2022 End: 04-20-2022 ambulatory Aron HANCOCK Facility:[facility] Start: 04-19-2022 End: 04-19-2022 Patient encounter procedure Aron HANCOCK [facility] Start: 04-11-2022 End: 04-12-2022 ambulatory Wilfred London Facility:[facility] Start: 04-11-2022 End: 04-11-2022 Patient encounter procedure Wilfred London [facility] Start: 03-23-2022 End: 03-28-2022 Evaluation and management of inpatient Saran Dodge Facility:[facility] Start: 03-23-2022 End: 03-28-2022 Evaluation and management of inpatient Kris Eyl CHIANG [facility] Start: 01-07-2022 End: 01-08-2022 ambulatory [facility] Start: 01-07-2022 End: 01-07-2022 Subsequent hospital visit by physician Tika Joy MD Work Phone: [facility] Start: 12-20-2021 End: 12-21-2021 ambulatory [facility] Start: 12-20-2021 End: 12-20-2021 Subsequent hospital visit by physician Tika Joy MD Work Phone: [facility] Start: 11-14-2021 End: 11-14-2021 Emergency department patient visit [facility] Facility:[facility] Start: 11-13-2021 End: 11-14-2021 Emergency department patient [facility] Start: 11-10-2021 End: 02-09-2022 ambulatory GIO MANDEL Facility:[facility] Start: 11-10-2021 End: 02-08-2022 Recurring Echo MANDEL [facility] Start: 08-11-2021 End: 08-12-[address] PIEDAD LAUREANO Facility: Start: 01-07-2020 End: 01-07-2020 Orders Only Martin Gibson Work Phone: Orthopaedics Comment on above: Pain (Primary Dx) Start: 03-27-2017 End: 03-27-2017 Ambulatory ZAC Mark SAMMIE [facility] Procedures Date Procedure Procedure Detail Performing Clinician Start: 07-11-2023 Follow-up visit Follow-up RAMBO DUKE Start: 06-26-2023 Visual field xm uni/ bi w/interp extended exam Daniel Ferrer OD Work Phone: Start: 06-21-2023 Pelvis X-ray MD Tika resendez Work Phone: Start: 06-21-2023 X-ray of both knees MD Tika Joy Work Phone: Start: 09-30-2022 Ultrasonography of b ilateral kidneys MD Tika Joy Work Phone: Start: 01-07-2022 Basic metabolic pane l calcium total Tika Joy MD Work Phone: Start: 12-20-2021 Basic metabolic pane l calcium total Tika Joy MD Work Phone: Start: 03-27-2017 SURGICAL PATHOLOGY MADISON COCHRAN Start: 03-27-2017 DISCHARGE PATIENT ZAC COCHRAN Start: 03-27-2017 SURGICAL PATHOLOGY MADISONVinay COCHRAN Start: 03-27-2017 Colonoscopy Tika stockton MD Work Phone: Simple mastectomy Martínez stewart Plan of Treatment Date Care Activity Detail Author Start: 03-27-2027 Screening for malign ant neoplasm of colon [facility] Start: 07-10-2024 Adult BMI Screening Adult BMI Screen ing [facility] Start: 07-10-2024 Tobacco Screening Tobacco Screening [facility] Start: 06-26-2024 Tobacco Screening Tobacco Screening [facility] Start: 02-01-2024 End: 02-01-2024 Clinical Support [facility] Start: 01-20-2024 Adult BMI Screening Adult BMI Screen ing [facility] Start: 01-20-2024 Tobacco Screening Tobacco Screening [facility] Start: 12-20-2023 End: 12-20-2023 Patient encounter procedure 12/20/2023 11:10 AM EDT Office Visit [facility] [address] [place] [phone] Daniel Ferrer, OD [address] [place] [address] [facility] Start: 12-20-2023 End: 12-20-2023 ambulatory 12/20/2023 10:40 AM EDT Ophthalmology Imaging [facility] [address] [place] [phone] [facility] Start: 07-11-2023 End: 07-11-2023 Patient encounter procedure 07/11/2023 1:45 PM EDT Office Visit [facility] [address] [place] [phone] Rambo Duke DO [address] [place] [address] [facility] Start: 05-15-2023 End: 05-15-2023 Patient encounter procedure 05/15/2023 11:10 AM EST Office Visit [facility] [address] [place] [phone] Daniel Ferrer, OD [address] [place], [place] [id number] [facility] Start: 05-15-2023 End: 05-15-2023 ambulatory 05/15/2023 10:40 AM EST Ophthalmology Imaging [facility] [address] [place] [phone] [facility] Start: 12-30-2022 COVID-19 Vaccine ( season) COVID-19 Vaccine ( season) [facility] Start: 12-24-2022 Lipid panel Lipids [facility] Start: 12-30-2021 Influenza vaccination Flu vaccine (# 1) [facility] Start: 12-31-2019 Influenza vaccination INFLUENZA (#1) [facility] Start: 2012 ADVANCE DIRECTIVE DISCUSSION ADVANCE DIRECTIVE DISCUSSION [facility] Start: 2012 BONE DENSITY BONE DENSITY [facility] Start: 2012 Fall Risk Screening Fall Risk Screen ing [facility] Start: 2012 PNEUMOVAX AGE 65 AND OVER WITH 5YR LOOKBACK (#1) PNEUMOVAX AGE 65 AND OVER WITH 5YR LOOKBACK (#1) [facility] Start: 04-14-2012 DTaP,Tdap and Td Vac cines (1 - Tdap) DTaP,Tdap and Td Vaccines (1 - Tdap) [facility] Start: 04-14-2012 DTaP/Tdap/Td vaccine (1 - Tdap) DTaP/Tdap/Td vaccine (1 - Tdap) [facility] Start: 2002 Screening for osteoporosis DEXA (modify frequency per FRAX score) [facility] Start: 1997 Screening for malign ant neoplasm of breast Breast cancer screen [facility] Start: 1997 SHINGRIX VACCINE (1 of 2) ALEMAN GRIX VACCINE (1 of 2) [facility] Start: 1997 Tuberculosis screening COLOREC CRISTINE CANCER SCREENING,SEE MODIFIER [facility] Start: 1992 DIABETES SCREEN DIABETES SCREEN [facility] Start: 1992 LIPID SCREEN LIPID SCREEN [facility] Start: 1992 Screening for malign ant neoplasm of colon [facility] Start: 1987 Mammography MAMMOGRAM [facility] Start: 1966 DTaP/Tdap/Td vaccine (1 - Tdap) DTaP/Tdap/Td vaccine (1 - Tdap) [facility] Start: 1966 Urine microalbumin profile DTAP,TDAP,TD (1 - Tdap) [facility] Start: 1965 Adult BMI Follow Up Plan Adult BMI F ollow Up Plan [facility] Start: 1965 HEPATITIS C SCREENING [facility]PATITIS C [facility] Start: 1965 Hepatitis C screening [facility] Start: 1959 Depression Screen Depression Screen [facility] Start: 1959 Depression Screening Depression Scre ening [facility] Start: 1945 COVID-19 Vaccine (#1) COVID-19 Vacci ne (#1) [facility] Start: 1945 Medicare Annual Well ness Visit Medicare Annual Wellness Visit [facility] Electroph[facility] Prot ein, Serum Electrophoresis Protein, Serum Lab Routine 01/07/2022 11:01 AM EDT [facility] [employer] Work Phone: End: 02-05-2021 Radiologic exam knee complete 4/more views XR KNEE GENERAL 4V AP BOTH/PA BOTH/LAT/MERC BILAT Radiology Routine Pain 1 Occurrences starting 01/07/2020 until 02/05/2021 [facility] Comment on above: 1 Occurrences starti ng 01/07/2020 until 02/05/2021 [facility] Immunizations Immunization Date Immunization Notes Care Provider Maral luke 02-10-2022 influenza virus vacc ine, unspecified formulation [facility] [employer] [facility] 02-28-2021 SARS-CoV-2 (COVID-19 ) mRNA-1273 vaccine [facility] [employer] [facility] 01-22-2021 influenza virus vacc ine, unspecified formulation [facility] [employer] [facility] 07-23-2020 SARS-CoV-2 (COVID-19 ) mRNA-1273 vaccine [facility] [employer] [facility] 06-27-2020 SARS-CoV-2 (COVID-19 ) mRNA-1273 vaccine [facility] [employer] [facility] Comment on above: Result Comment: 2021: [id number] 02-27-2019 influenza virus vacc ine, unspecified formulation [facility] [employer] [facility] 08-17-2018 pneumococcal polysaccharide vaccine, 23 valent [facility] [employer] [facility] 02-13-2018 influenza virus vacc ine, unspecified formulation [facility] [employer] [facility] 11-30-2017 zoster vaccine recombinant [facility] [employer] [facility] 08-15-2017 zoster vaccine recombinant [facility] [employer] [facility] 02-07-2017 influenza virus vacc ine, unspecified formulation [facility] [employer] [facility] 08-09-2016 pneumococcal conjuga te vaccine, 13 valent [facility] [employer] [facility] 02-08-2016 influenza virus vacc ine, unspecified formulation [facility] [employer] [facility] 01-13-2015 influenza virus vacc ine, unspecified formulation [facility] [employer] [facility] 08-15-2014 pneumococcal conjuga te vaccine, 13 valent [facility] [employer] [facility] 01-28-2014 influenza virus vacc ine, unspecified formulation [facility] [employer] [facility] 01-22-2013 influenza virus vacc ine, unspecified formulation [facility] [employer] [facility] 04-13-2012 Td(adult) unspecifie d formulation [facility] [facility] 02-15-2000 influenza virus vacc ine, unspecified formulation [facility] [facility] 04-12-1999 influenza virus vacc ine, unspecified formulation [facility] [facility] Payers Date Payer Category Payer Unknown [id number] 2022 Self-pay 2019 Unknown MMO MMO MEDICARE SUPPLEMENT [id number] 2019-Present Indemnity [id number] 2016 Medicare [id number] 2015 Unknown [employer] M MO TRADITIONAL [id number] 2015-Present [phone] [address] [place] [address] [id number] 2012 Medicare MEDICARE MEDICAR E A AND B [id number] 2012-Present [place] Medicare [id number] 2012 Medicare MEDICARE MEDICAR E PART A & B [id number] 2012-Present [phone] [address] [place] [address] [id number]. [id number] 1959 Medicare [id number] 1959 Unknown [id number] 1947 Unknown [id number] 2.16.840.1.822545.3.579.2.593 1947 Unknown [id number] 2.16.840.1.356452.3.579.2.727 1947 Unknown [id number] 2.16.840.1.839642.3.579.2.727 1947 Unknown [id number] 2.16.840.1.461708.3.579.2.727 1947 Unknown [id number] 2.16.840.1.622766.3.579.2.727 1947 Unknown [id number] 2.16.840.1.709021.3.579.2.727 1947 Unknown [id number] 2.16.840.1.223210.3.579.2.727 1947 Unknown [id number] 2.16.840.1.433249.3.579.2.727 1947 Unknown [id number] 2.16.840.1.621339.3.579.2.727 1947 Unknown [id number] 2.16.840.1.239855.3.579.2.174 1947 Unknown [id number] 2.16.840.1.170814.3.579.2.174 1947 Unknown [id number] 2.16.840.1.984724.3.579.2.174 1947 Unknown [id number] 2.16.840.1.127854.3.579.2.174 1947 Unknown [id number] 2.16.840.1.513591.3.579.2.177 1947 Unknown [id number] 2.16.840.1.643124.3.579.2.1286 1947 Unknown [id number] 2.16.840.1.299135.3.579.2.1259 1947 Unknown [id number] 2.16.840.1.824325.3.579.2.1259 1947 Unknown [id number] 2.16.840.1.463658.3.579.2.1259 1947 Unknown [id number] 2.16.840.1.322417.3.579.2.1286 1947 Unknown [id number] 2.16.840.1.931760.3.579.2.1286 1947 Unknown [id number] 2.16.840.1.251782.3.579.2.1286 1947 Unknown [id number] 2.16.840.1.100435.3.579.2.128 1947 Unknown [id number] 2.16.840.1.333127.3.579.2.1286 1947 Unknown [id number] 2.16.840.1.283058.3.579.2.1286 1947 Unknown [id number] 2.16.840.1.413806.3.579.2.1286 1947 Unknown [id number] 2.16.840.1.503128.3.579.2.1286 1947 Unknown [id number] 2.16.840.1.556429.3.579.2.1286 1947 Unknown [id number] 2.16.840.1.072559.3.579.2.1286 1947 Unknown [id number] 2.16.840.1.864853.3.579.2.1286 Unknown [id number] 2.16.840.1.284735.3.579.2.531 Unknown [id number] 2.16.840.1.412262.3.579.2.531 Social History Date Type Detail Facility Tobacco smoking stat [facility] Unknown if ever smoked [facility] Start: 1945 Sex Assigned At Not on file [facility] Exposure to SARS-CoV -2 (event) Not sure [facility] Tobacco [facility] Comment on above: denies Start: 05-20-2020 End: 01-19-2023 Sex Assigned At Female [facility] [employer] Work Phone: Tobacco smoking status No Smokin g Status Entered [facility] Start: 1945 Sex Assigned At Female [facility] Start: 12-30-2021 End: 10-04-2022 Tobacco smoking status Never smoked tobacco (finding) [facility] Comment on above: denies Start: 12-30-2021 Tobacco use and exposure Smokeless tobacco non-user [facility] Start: 01-19-2023 End: 07-11-2023 Alcohol intake Current drinker of alcohol (finding) [facility] Start: 05-20-2020 End: 01-19-2023 History of Social function [facility] Housing Instability Unknown [facility] Start: 06-04-2020 Alcohol Comment BEER ONE A WEEK [facility] Medical Equipment Procedure Code Equipment Code Equipment Origin al Text Equipment Identifier Dates Biv Icd-02/18/2016 [id number] Start: 02-18-2016 Functional Status Date Assessment Result Facility 10-04-2022 Functional Status N/A [facility] 04-19-2022 Functional Status N/A [facility] 04-11-2022 Functional Status N/A [facility] 03-23-2022 Functional Status N/A [facility] 03-23-[address] [facility] 11-13-2021 Functional Status N/A [facility] Clinical Notes 07-03-2020 to 07-11-2023 Rambo Duke, - 07/11/2023 1:45 PM EDTTelephone Encounter - Kay Ann, [facility] - 07/10/2023 8:24 AM EDTTelephone Encounter - Kay Ann, [facility] - 07/10/2023 8:24 AM EDT Note Date & Type Note Facility 07-11-2023 History of Presen t illness Narrative Yenny Krishnanbrenda Felix Date of visit: 07/11/2023 Date of : 1945 Age: 78 y.o. Patient Active Problem List Diagnosis Automatic implantable cardioverter-defibrillator in situ [employer] Cancer ([facility]) Gout Dyslipidemia Dyspnea Edema Dizziness Vertigo Left bundle branch block (LBBB) Benign essential hypertension Nonischemic congestive cardiomyopathy ([facility]) Overweight Atrial fibrillation ([facility]) CHF (congestive heart failure) ([facility]) Allergies Allergen Reactions Cefaclor Other reaction(s): Intolerance-unknown Current Outpatient Medications Medication Sig Dispense Refill acetaminophen (TYLENOL) 325 mg tablet Take 2 tablets (650 mg total) by mouth every 6 (six) hours as needed for pain. allopurinol (ZYLOPRIM) 100 mg tablet Take 1 tablet (100 mg total) by mouth in the morning. calcium carbonate (CALCIUM 500 ORAL) Take by mouth daily. carvediloL (COREG) 6.25 mg tablet TAKE 1 TABLET BY MOUTH TWICE DAILY WITH MEALS 60 tablet 3 cholecalciferol, vitamin D3, 2,000 units tablet Take 1 tablet (2,000 Units total) by mouth in the morning. esomeprazole (NexIUM) 20 mg capsule Take 1 capsule (20 mg total) by mouth in the evening. ferrous sulfate 325 (65 FE) mg EC tablet Take 1 tablet (325 mg total) by mouth in the morning. fluvoxaMINE (LUVOX) 100 mg tablet Take 0.5 tablets (50 mg total) by mouth in the morning and 0.5 tablets (50 mg total) before bedtime. furosemide (LASIX) 20 mg tablet Take 0.5 tablets (10 mg total) by mouth as needed (please have labs drawn for future refills.). 90 tablet 2 gabapentin (NEURONTIN) 100 mg capsule Take 1 capsule (100 mg total) by mouth 3 (three) times a day. L.acid/B.bifidum/B.animal/FOS (PROBIOTIC COMPLEX ORAL) Take by mouth daily. levothyroxine (SYNTHROID, LEVOTHROID) 50 MCG tablet Take 1 tablet (50 mcg total) by mouth in the morning. loratadine (CLARITIN) 10 mg tablet Take 1 tablet (10 mg total) by mouth as needed for allergies. losartan (COZAAR) 25 mg tablet Take 1 tablet (25 mg total) by mouth in the morning. magnesium oxide 500 mg tablet Take 1 tablet (500 mg total) by mouth in the morning. dspokcbs-dfca-WU-calcium &mins (THERAGRAN-M) 9 mg iron-400 mcg tablet Take 1 tablet by mouth in the morning. omega-3/dha/epa/dpa/fish oil (OMEGA-3 2100 ORAL) Take by mouth 2 (two) times a day. simvastatin (ZOCOR) 40 mg tablet Take 1 tablet (40 mg total) by mouth nightly. spironolactone (ALDACTONE) 25 mg tablet Take 0.5 tablets (12.5 mg total) by mouth in the morning. timolol (TIMOPTIC) 0.5 % ophthalmic solution Administer 1 drop to both eyes in the morning and 1 drop before bedtime. 15 mL 3 XARELTO 20 mg tablet tablet TAKE 1 TABLET(20 MG) BY MOUTH IN THE MORNING 30 tablet 9 JOANN ELLIPTA 200-62.5-25 mcg blister with device INHALE 1 PUFF BY MOUTH ONCE DAILY (Patient not taking: Reported on 11/14/2022) No current facility-administered medications for this visit. Chief Complaint Patient presents with Follow-up Hypertension Atrial Fibrillation History of Present Illness Yenny was seen today for follow-up of her nonischemic cardiomyopathy. She has a biventricular ICD in place. She has had no shocks. She denies any chest pain, pressure, or shortness of breath. She states that she feels somewhat foggy recently but has had difficulty with the vertigo as well. She has been compliant with her medications. Past Medical History: Diagnosis Date Cancer ([facility]) BREAST Cardiomyopathy CHF (congestive heart failure) ([facility]) Dizziness Dyslipidemia Dyspnea Edema Glaucoma Gout History of YAG laser capsulotomy of lens of right eye-Dr. Jimenez 07/17/2017 History of YAG laser capsulotomy of lens, left-Dr. Jimenez 07/24/2017 Hypertension LBBB (left bundle branch block) PVD (posterior vitreous detachment) Vertigo No data recorded No data recorded No data recorded Past Surgical History: Procedure Laterality Date APPENDECTOMY BREAST SURGERY CARDIAC DEFIBRILLATOR PLACEMENT 04/19/2013 [place] [employer] ICD/ Generator replacement: 02/18/2016 CATARACT EXTRACTION W/ INTRAOCULAR LENS IMPLANT Bilateral 2009 CHOLECYSTECTOMY CHOLECYSTECTOMY TONSILLECTOMY W/ADENOIDS Family History Problem Relation Age of Onset Hypertension Mother Coronary artery disease Father Social History Socioeconomic History Marital status: Spouse name: Not on file Number of children: Not on file Years of education: Not on file Highest education level: Not on file Occupational History Not on file Tobacco Use Smoking status: Never Smokeless tobacco: Never Vaping Use Vaping Use: Never used Substance and Sexual Activity Alcohol use: Yes Comment: BEER ONE A WEEK Drug use: No Sexual activity: Defer Other Topics Concern Caffeine Use Yes Comment: COFFEE RARE Social History Narrative Not on file Social Determinants of Health Financial Resource Strain: Not on file Food Insecurity: No Food Insecurity (01/19/2023) Hunger Screening Food Insecurity - Worry: Never True Food Insecurity - Inability: Never True Transportation Needs: Not on file Physical Activity: Not on file Stress: Not on file Social Connections: Not on file Interpersonal Safety: Not on file Housing Instability: Not on file Review of Systems Review of Systems Constitutional: Negative for chills, fever, weight gain and weight loss. HENT: Negative for nosebleeds. Eyes: Negative for blurred vision and double vision. Vascular: Negative for asymmetric leg edema, claudication, lower extremity wounds or ulcers and varicose veins. Respiratory: Negative for cough, shortness of breath and wheezing. Hematologic/Lymphatic: Negative for bleeding problem. Does not bruise/bleed easily. Skin: Negative for color change and rash. Musculoskeletal: Negative for joint swelling and muscle weakness. Gastrointestinal: Negative for change in bowel habit and hematochezia. Genitourinary: Negative for hematuria. Neurological: Negative for dizziness, headaches, light-headedness, loss of balance, numbness and tremors. Psychiatric/Behavioral: The patient is not nervous/anxious. Allergic/Immunologic: Negative for environmental allergies. CARDIOVASCULAR: Please review HPI. Physical Examination General appearance: Alert, oriented and cooperative. In no acute distress. Skin: Warm and dry to touch. Head: Normocephalic, without obvious abnormality, atraumatic. Ears, Nose, Mouth, Throat: Throat clear without erythema or exudate. Dentition intact. Eyes: Conjunctivae unremarkable, EOM intact. Neck: No JVD, No carotid bruit. Neck supple, trachea midline. Respiratory: Clear to auscultation bilaterally, no use of accessory muscles. Cardiovascular: RRR with normal S1 and S2 with no murmurs. Gastrointestinal: Soft, non-tender. Bowel sounds normal. Musculoskeletal: No peripheral edema. Neurologic: Oriented to time, person and place, affect appropriate. No focal/major motor defects noted. Psychiatric: Appropriate mood, memory and judgement. VITAL SIGNS: BP 152/90 Pulse 70 Ht 175.3 cm (5' 9 ) Wt 103.9 kg (229 lb) SpO2 100% BMI 33.82 kg/m No orders of the defined types were placed in this encounter. There are no discontinued medications. [id number] Score: 4 4.8% Stroke risk per year, 6.7% risk of stroke/TIA/systemic embolism IMPRESSIONS/PLAN 1. Cardiomyopathy 2. Persistent atrial fibrillation (CMS-HCC) 3. Chronic systolic heart failure (CMS-HCC) 4. Left bundle branch block (LBBB) Recent device check appear to be favorable. She will be due for a follow-up in 6 months with a device check at that time. She appears to be well compensated. She will be checking her blood pressure on a more regular basis as she had an elevated reading today. She states that generally is in the therapeutic range. Follow-up is arranged for 6 months. TODAYS ORDERS No orders of the defined types were placed in this encounter. FOLLOW UP Return in about 6 months (around 01/11/2024). PCP: Tika Joy MD Referring Physician: Tika Joy MD [id number] [place] [address] documented in this encounter [facility] 07-10-2023 Miscellaneous Notes Called patient to remind them to bring their most current copy of their medication list with them to their appt. Patient verbalizes understanding. documented in this encounter [facility] 07-10-2023 Telephone encounter Note Called patient to remind them to bring their most current copy of their medication list with them to their appt. Patient verbalizes understanding. [facility] 06-26-2023 Note Right Eye Reliability was good. Progression has been stable. Foveal threshold was normal. Findings include normal observations. Left Eye Reliability was good. Progression has been stable. Foveal threshold was normal. Findings include normal observations. Notes Clean VF OU MANUALLY TRANSCRIBED RESULTS 05-06-2023 Miscellaneous Notes 01/19/23 OV 04/13/23 CBC, CMP documented in this encounter [facility] 05-06-2023 Telephone encounter Note 01/19/23 OV 04/13/23 CBC, CMP [facility] 10-04-2022 Hospital Discharg e instructions Patient Education 10/04/2022 10:05:11 Hematuria, Adult Hematuria, Adult Hematuria is blood in the urine. Blood may be visible in the urine, or it may be identified with a test. This condition can be caused by infections of the bladder, urethra, kidney, or prostate. Other possible causes include: Kidney stones. Cancer of the urinary tract. Too much calcium in the urine. Conditions that are passed from parent to child (inherited conditions). Exercise that requires a lot of energy. Infections can usually be treated with medicine, and a kidney stone usually will pass through your urine. If neither of these is the cause of your hematuria, more tests may be needed to identify the cause of your symptoms. It is very important to tell your health care provider about any blood in your urine, even if it is painless or the blood stops without treatment. Blood in the urine, when it happens and then stops and then happens again, can be a symptom of a very serious condition, including cancer. There is no pain in the initial stages of many urinary cancers. Follow these instructions at home: Medicines Take usbl-prx-fgsohsr and prescription medicines only as told by your health care provider. If you were prescribed an antibiotic medicine, take it as told by your health care provider. Do not stop taking the antibiotic even if you start to feel better. Eating and drinking Drink enough fluid to keep your urine pale yellow. It is recommended that you drink 3 4 quarts (2.8 3.8 L) a day. If you have been diagnosed with an infection, drinking cranberry juice in addition to large amounts of water is recommended. Avoid caffeine, tea, and carbonated beverages. These tend to irritate the bladder. Avoid alcohol because it may irritate the prostate (in males). General instructions If you have been diagnosed with a kidney stone, follow your health care provider's instructions about straining your urine to catch the stone. Empty your bladder often. Avoid holding urine for long periods of time. If you are female: ?After a bowel movement, wipe from front to back and use each piece of toilet paper only once. ?Empty your bladder before and after sex. Pay attention to any changes in your symptoms. Tell your health care provider about any changes or any new symptoms. It is up to you to get the results of any tests. Ask your health care provider, or the department that is doing the test, when your results will be ready. Keep all follow-up visits. This is important. Contact a health care provider if: You develop back pain. You have a fever or chills. You have nausea or vomiting. Your symptoms do not improve after 3 days. Your symptoms get worse. Get help right away if: You develop severe vomiting and are unable to take medicine without vomiting. You develop severe pain in your back or abdomen even though you are taking medicine. You pass a large amount of blood in your urine. You pass blood clots in your urine. You feel very weak or like you might faint. You faint. Summary Hematuria is blood in the urine. It has many possible causes. It is very important that you tell your health care provider about any blood in your urine, even if it is painless or the blood stops without treatment. Take udfi-lbx-xfjrdbm and prescription medicines only as told by your health care provider. Drink enough fluid to keep your urine pale yellow. This information is not intended to replace advice given to you by your health care provider. Make sure you discuss any questions you have with your health care provider. Document Revised: 12/16/2020 Document Reviewed: 12/16/2020 [employer] Patient Education 2022 [employer]. Follow Up Care 04/19/2022 09:43:54 With:STEPH RICE, Aron Davidson, URL Address: [facility] [employer] [address] [place], [place] [id number]- When: Unknown [facility] [place] 04-19-2022 Hospital Discharg e instructions Patient Education 04/19/2022 09:42:28 Hematuria, Adult Hematuria, Adult Hematuria is blood in the urine. Blood may be visible in the urine, or it may be identified with a test. This condition can be caused by infections of the bladder, urethra, kidney, or prostate. Other possible causes include: Kidney stones. Cancer of the urinary tract. Too much calcium in the urine. Conditions that are passed from parent to child (inherited conditions). Exercise that requires a lot of energy. Infections can usually be treated with medicine, and a kidney stone usually will pass through your urine. If neither of these is the cause of your hematuria, more tests may be needed to identify the cause of your symptoms. It is very important to tell your health care provider about any blood in your urine, even if it is painless or the blood stops without treatment. Blood in the urine, when it happens and then stops and then happens again, can be a symptom of a very serious condition, including cancer. There is no pain in the initial stages of many urinary cancers. Follow these instructions at home: Medicines Take nglm-ywf-qsmhwtn and prescription medicines only as told by your health care provider. If you were prescribed an antibiotic medicine, take it as told by your health care provider. Do not stop taking the antibiotic even if you start to feel better. Eating and drinking Drink enough fluid to keep your urine clear or pale yellow. It is recommended that you drink 3 4 quarts (2.8 3.8 L) a day. If you have been diagnosed with an infection, it is recommended that you drink cranberry juice in addition to large amounts of water. Avoid caffeine, tea, and carbonated beverages. These tend to irritate the bladder. Avoid alcohol because it may irritate the prostate (men). General instructions If you have been diagnosed with a kidney stone, follow your health care provider's instructions about straining your urine to catch the stone. Empty your bladder often. Avoid holding urine for long periods of time. If you are female: ?After a bowel movement, wipe from front to back and use each piece of toilet paper only once. ?Empty your bladder before and after sex. Pay attention to any changes in your symptoms. Tell your health care provider about any changes or any new symptoms. It is your responsibility to get your test results. Ask your health care provider, or the department performing the test, when your results will be ready. Keep all follow-up visits as told by your health care provider. This is important. Contact a health care provider if: You develop back pain. You have a fever. You have nausea or vomiting. Your symptoms do not improve after 3 days. Your symptoms get worse. Get help right away if: You develop severe vomiting and are unable take medicine without vomiting. You develop severe pain in your back or abdomen even though you are taking medicine. You pass a large amount of blood in your urine. You pass blood clots in your urine. You feel very weak or like you might faint. You faint. Summary Hematuria is blood in the urine. It has many possible causes. It is very important that you tell your health care provider about any blood in your urine, even if it is painless or the blood stops without treatment. Take npxv-dde-hvescqt and prescription medicines only as told by your health care provider. Drink enough fluid to keep your urine clear or pale yellow. This information is not intended to replace advice given to you by your health care provider. Make sure you discuss any questions you have with your health care provider. Document Released: 04/17/2006 Document Revised: 09/11/2019 Document Reviewed: 05/20/2017 [employer] Patient Education 2019 [employer]. Follow Up Care 03/28/2022 12:57:02 With:STEPH RICE, Aron Davidson, URL Address: [facility] [address]TONIO MORATAYA [address] [place] [id number]- When:6 months Comments:renal US [facility] Jessica 03-28-2022 Note [facility] Comment on above: Result Comment: Elec tronically Signed By: Carol ORTIZ\.br\Date and Time Signed: 03/28/22 11:39 EST\.br\Electronically Co-Signed By: Dar RICE, Saran Gifford\.br\Date and Time Co-Signed: 03/28/22 12:00 EST 03-28-2022 Evaluation + Plan note Extrac phil from: Title:Discharge Note Author:Desirae ORTIZ nejodie Date:03/28/22 Hemodynamically stable condi tion Discharge To, Anticipated II - Home with responsible caregiver Discharged to - Home with family care Discharge Status: Improved Discharge Instructions Given: To patient Discharge disposition: Home Prescriptions reviewed with Patient 47 minutes spent in discharge time with patient, collaborating MD, nursing staff, CRM Discharge Diet(s): Regular, Fat Modified- Low cholesterol, Low Sodium- 2000 mg (03/28/22 11:29:00) Prescriptions Levaquin 750 mg Tab, 750 mg= 1 tab(s), Oral, Daily Nexium 20 mg Cap-DR, 20 mg= 1 cap(s), Oral, Daily nystatin 100,000 units/mL Oral Susp, 488326 unit(s)= 5 mL, Oral, q6hrFT Pro-Air HFA CFC free 90 mcg/inh MDI, 2 puff(s), Inhalation, q4hr, PRN Zofran ODT 4 mg Tab-Dis, 4 mg= 1 tab(s), Oral, q6hr Home acetaminophen 325 mg Tab, 650 mg= 2 tab(s), Oral, q6hr, PRN allopurinol 100 mg Tab, 100 mg= 1 tab(s), Oral, Daily calcium (as carbonate) 600 mg oral tablet, 600 mg= 1 tab(s), Oral, Daily carvedilol 12.5 mg Tab, 12.5 mg= 1 tab(s), Oral, BID Flonase 0.05 mg/inh [place], 0.1 mg= 2 spray(s), Nasal, Daily fluvoxamine 100 mg oral tablet, 50 mg= 0.5 tab(s), Oral, BID furosemide 20 mg Tab, See Instructions gabapentin 100 mg Cap, 100 mg= 1 cap(s), Oral, TID levothyroxine 50 mcg (0.05 mg) Tab, 50 mcg= 1 tab(s), Oral, Daily losartan 25 mg Tab, 25 mg= 1 tab(s), Oral, Daily magnesium oxide 500 mg oral tablet, 500 mg= 1 tab(s), Oral, Daily melatonin 3 mg Tab, 3 mg= 1 tab(s), Oral, Bedtime, PRN Mucinex 600 mg Tab-ER, 1200 mg= 2 tab(s), Oral, BID Multi-Day Plus Minerals, 1 tab(s), Oral, Daily, Not taking Nature's Bounty Probiotic, 1 tab(s), Oral, Daily, Not taking: Not on patient's home medication list simvastatin 40 mg Tab, 40 mg= 1 tab(s), Oral, Once a day (at bedtime) spironolactone 25 mg Tab, 12.5 mg= 0.5 tab(s), Oral, Daily timolol ophthalmic 0.5% solution, 1 drop(s), Eye-Right, Daily Trelegy Ellipta 200 mcg-62.5 mcg-25 mcg/inh inhalation powder, 1 puff(s), Inhalation, Daily Vitamin D3 2000 intl units oral Tab, 2000 International_Unit= 1 cap(s), Oral, Daily Xarelto 20 mg oral tablet, 20 mg= 1 tab(s), Oral, qPM With When Contact Information Wilfred London Within 1 to 2 weeks [address] [place] [address]- Business (1) Additional Instructions: Jose Francisco GALEANO Within 2 to 4 weeks [address] [place] [address]- Business (1) Additional Instructions: NIDAA KHAMOUSIA In 0 days [address] [facility] [place] [address]- Business (1) Additional Instructions: Bacteremia, Adult Core Measures- Pneumonia [facility] (Custom) Extracted from: Title:APSO Note Author:SARMAD FEMI-ROD, Carol Delfino ate:03/27/22 1. Bacteremia (R78.81: Bacte remia) Unclear caution - urine is neg, CT chest/abd./pelvis are non acute, ? early PNA that was treated prior to scans -CT chest, abd/pelvis - Hyperattenuating 5 mm right midpole renal cortical nodule finding may represent hemorrhagic cyst, cardiomegaly, right mastectomy, small bilateral pleural effusions, no mass identified, small hiatal hernia, cholecystectomy, stable left adrenal nodule -03/23: Bl. cx. prelim - Streptococcus species Non Hemolytic -03/24: Bl. cx. - prelim - neg day 1 -Levaquin initiated in ED -> transitioned to -> IV vanco, IV cefepime - rx. to dose - 03/23 -Consult ID - 03/25: case d/w Dr. Dey via phone w/ recs to transition IV vanco/cefepime to IV levaquin w/ transition to po at d/c for a total of 2wks. Ordered: [facility] Hospital Care/Day High 35 Minutes [id number] 2. Hypoxia (R09.02: Hypoxemia) Likely 2/2 b/l pleural effusions, ? bronchitis, no PNA on CT -Per chart review nrsng reported pulse ox of 84% but not documented -Denies home 02 use -> on RA 03/26 -Flu A&B, COVID 19 - neg -CXR: No acute process -CT chest: as above -Procal level - 1.08 -Sputum cx. - 1+ yeast, resp. yashira -Med nebs, mucinex, IS, supplemental 02 -IV Azithromycin - 03/23 3. Bilateral pleural effusion (J90: Pleural effusion, not elsewhere classified) Per CT chest -03/26: On RA 4. Urinary tract infection (N39.0: Urinary tract infection, site not specified) -Urine cx. - mixed skin contaminants 5. Fever (R50.9: Fever, unspecified) 2/2 above -Last fever 03/23 -See above 6. Elevated troponin (R77.8: Other specified abnormalities of plasma proteins) Hx. of non ischemic cardiomyopathy -Consult FT/HV - no further inpt. cardiac w/u planned -> cont. chronic meds -F/U w/ primary drop pit worker as outpt. 7. Nodule of kidney (N28.89: Other specified disorders of kidney and ureter) Per CT as above -Renal US -7 x 8 x 8 mm right mid pole cortical simple renal cyst - pt. states she was aware of this finding previously -F/U w/ urology as oupt. 8. Open wound of right knee (S81.001A: Unspecified open wound, right knee, initial encounter) Sm. lac type area - no s/s of infection -Band aid 9. Hyponatremia (E87.1: Hypo-osmolality and hyponatremia) Acute on chronic -Asymptomatic -Baseline Na level: 131 10. Hypokalemia (E87.6: Hypokalemia) Replete K/Mag prn -Trend labs 11. Chronic systolic heart failure (I50.22: Chronic systolic (congestive) heart failure) -EF 40%, normal RV, biatrial enlargement, mild to moderate MR, moderate to severe TR, mild PA hypertension, pseudo normal diastolic filling pattern, pacemaker RA/RV. -Consult FT/HV - euvolemic, stable for d/c from cardio standpoint on chronic home medications -Resume chronic cardiac meds -03/25 resume spironolactone -Hold furosemide - pt. states she takes on a prn wt. gain basis -F/U as above 12. Presence of combination internal cardiac defibrillator (ICD) and pacemaker (Z95.810: Presence of automatic (implantable) cardiac defibrillator) Hx. of BiV ICD -In situ 13. History of atrial fibrillation (Z86.79: Personal history of other diseases of the circulatory system) -Carvedilol, xarelto, 14. Hypertension (I10: Essential (primary) hypertension) -Carvedilol, losartan, -Hold furosemide, -Spironolactone 15. Hyperlipidemia (E78.5: Hyperlipidemia, unspecified) -Simvastatin 16. Hypothyroidism (E03.9: Hypothyroidism, unspecified) -Levothyroxine 17. Glaucoma (H40.9: Unspecified glaucoma) -Timolol 18. Chronic GERD (K21.9: Gastro-esophageal reflux disease without esophagitis) -PPI 19. Obesity (E66.9: Obesity, unspecified) BMI 33 -Educated on need for lifestyle modifications with goal of weight loss as obesity has a negative impact on co-morbid conditions. 20. History of gout (Z87.39: Personal history of other diseases of the musculoskeletal system and connective tissue) -Allopurinol, gabapentin 21. History of breast cancer (Z85.3: Personal history of malignant neoplasm of breast) S/P radical mastectomy 22. DVT prophylaxis (Z29.9: Encounter for prophylactic measures, unspecified) -Xarelto Orders: fluticasone nasal, 0.1 mg, 2 spray(s), [place], Nasal, Daily, Routine, Start date 03/27/22 9:00:00 EST gabapentin, 300 mg = 1 cap(s), Cap, Oral, Bedtime for 30 day(s), Stop date 04/24/22 20:59:00 EST, Start date 03/25/22 21:00:00 EST magnesium sulfate + Generic Diluent 50 mL, 2 gram = 50 mL, Soln-IV, IV Piggyback, Once, Stop date 03/26/22 9:00:00 EST, Routine, Start date 03/26/22 9:00:00 EST, 25 mL/hr, Infuse over 2 hour(s) polyethylene glycol 3350, 17 gram = 1 EA, Powder-Recon, Oral, Once, Stop date 03/27/22 8:00:00 EST, Routine, Start date 03/27/22 8:00:00 EST, 03/27/22 7:58:00 EST potassium chloride, 40 mEq = 2 tab(s), Tab-ER, Oral, Once, Stop date 03/26/22 8:00:00 EST, Routine, Start date 03/26/22 8:00:00 EST, 03/26/22 7:20:00 EST spironolactone, 12.5 mg = 0.5 tab(s), Tab, Oral, Daily, Routine, Start date 03/26/22 9:00:00 EST, 03/26/22 8:59:00 EST Basic Metabolic Panel Communication Order Physician to Nursing eGFR Magnesium Level Physical Therapy Evaluate Patient, Develop a Plan of Care and Implement Plan -Plan discussed w/ patient, nursing staff and CRM. This report was transcribed using voice recognition software. Every effort was made to ensure accuracy, however, inadvertently computerized vp publisher development mistakes may be present. Extracted from: Title:APSO Note Author:Carol ORTIZ ate:03/26/22 1. Bacteremia (R78.81: Bacte remia) Unclear caution - urine is neg, CT chest/abd./pelvis are non acute -CT chest, abd/pelvis - Hyperattenuating 5 mm right midpole renal cortical nodule finding may represent hemorrhagic cyst, cardiomegaly, right mastectomy, small bilateral pleural effusions, no mass identified, small hiatal hernia, cholecystectomy, stable left adrenal nodule -03/23: Bl. cx. prelim - Streptococcus species Non Hemolytic -03/24: Bl. cx. - prelim - pending -Levaquin initiated in ED -> transitioned to -> IV vanco, IV cefepime - rx. to dose - 03/23 -Consult ID - 03/25: case d/w Dr. Dey via phone w/ recs to transition IV vanco/cefepime to IV levaquin w/ transition to po at d/c for a total of 2wks. Ordered: [facility] Hospital Care/Day High 35 Minutes [id number] 2. Hypoxia (R09.02: Hypoxemia) Likely 2/2 b/l pleural effusions, ? bronchitis, no PNA on CT -Per chart review nrsng reported pulse ox of 84% but not documented -Denies home 02 use -> on RA today -Flu A&B, COVID 19 - neg -CXR: No acute process -CT chest: as above -Procal level - 1.08 -Sputum cx. - pending -Med nebs, mucinex, IS, supplemental 02 -IV Azithromycin - 03/23 3. Bilateral pleural effusion (J90: Pleural effusion, not elsewhere classified) Per CT chest -03/26: On RA 4. Urinary tract infection (N39.0: Urinary tract infection, site not specified) -Urine cx. - mixed skin contaminants 5. Fever (R50.9: Fever, unspecified) 2/2 above -Last fever 03/23 -See above 6. Elevated troponin (R77.8: Other specified abnormalities of plasma proteins) Hx. of non ischemic cardiomyopathy -Consult FT/HV - no further inpt. cardiac w/u planned -> cont. chronic meds -F/U w/ primary drop pit worker as outpt. 7. Nodule of kidney (N28.89: Other specified disorders of kidney and ureter) Per CT as above -Renal US -7 x 8 x 8 mm right mid pole cortical simple renal cyst. -F/U w/ urology as oupt. 8. Open wound of right knee (S81.001A: Unspecified open wound, right knee, initial encounter) Sm. lac type area - no s/s of infection -Band aid 9. Hyponatremia (E87.1: Hypo-osmolality and hyponatremia) Acute on chronic -Asymptomatic -Baseline Na level: 131 -Consult nephro - defer resuming diuretics to cardio, signed off -DC q6 Na levels - stable -TSH - wnl -Trend BMP 10. Hypokalemia (E87.6: Hypokalemia) Replete K/Mag prn -Trend labs 11. Chronic systolic heart failure (I50.22: Chronic systolic (congestive) heart failure) -Consult FT/HV - euvolemic, stable for d/c from cardio standpoint on chronic home medications -EF 40%, normal RV, biatrial enlargement, mild to moderate MR, moderate to severe TR, mild PA hypertension, pseudo normal diastolic filling pattern, pacemaker RA/RV. -Resume cardiac med per cardio -03/25 resume spironolactone -Hold furosemide - pt. states she takes on a prn wt. gain basis -F/U as above 12. Presence of combination internal cardiac defibrillator (ICD) and pacemaker (Z95.810: Presence of automatic (implantable) cardiac defibrillator) Hx. of BiV ICD -In situ 13. History of atrial fibrillation (Z86.79: Personal history of other diseases of the circulatory system) -Carvedilol, xarelto, 14. Hypertension (I10: Essential (primary) hypertension) -Carvedilol, losartan, -Hold furosemide, -Spironolactone 15. Hyperlipidemia (E78.5: Hyperlipidemia, unspecified) -Simvastatin 16. Hypothyroidism (E03.9: Hypothyroidism, unspecified) -Levothyroxine 17. Glaucoma (H40.9: Unspecified glaucoma) -Timolol 18. Chronic GERD (K21.9: Gastro-esophageal reflux disease without esophagitis) -PPI 19. Obesity (E66.9: Obesity, unspecified) BMI 33 -Educated on need for lifestyle modifications with goal of weight loss as obesity has a negative impact on co-morbid conditions. 20. History of gout (Z87.39: Personal history of other diseases of the musculoskeletal system and connective tissue) -Allopurinol, gabapentin 21. History of breast cancer (Z85.3: Personal history of malignant neoplasm of breast) S/P radical mastectomy 22. DVT prophylaxis (Z29.9: Encounter for prophylactic measures, unspecified) -Xarelto Orders: gabapentin, 100 mg = 1 cap(s), Cap, Oral, Daily for 30 day(s), Stop date 04/25/22 8:59:00 EST, Start date 03/26/22 9:00:00 EST gabapentin, 300 mg = 1 cap(s), Cap, Oral, Bedtime for 30 day(s), Stop date 04/24/22 20:59:00 EST, Start date 03/25/22 21:00:00 EST levofloxacin + Dextrose 5% in Water intravenous solution 150 mL, 750 mg = 150 mL, Soln-IV, IV Piggyback, Daily, Routine, Start date 03/26/22 9:00:00 EST, 150 mL/hr, Infuse over 1 hour(s) magnesium sulfate + Generic Diluent 50 mL, 2 gram = 50 mL, Soln-IV, IV Piggyback, Once, Stop date 03/26/22 9:00:00 EST, Routine, Start date 03/26/22 9:00:00 EST, 25 mL/hr, Infuse over 2 hour(s) potassium chloride, 40 mEq = 2 tab(s), Tab-ER, Oral, Once, Stop date 03/26/22 8:00:00 EST, Routine, Start date 03/26/22 8:00:00 EST, 03/26/22 7:20:00 EST spironolactone, 12.5 mg = 0.5 tab(s), Tab, Oral, Daily, Routine, Start date 03/26/22 9:00:00 EST, 03/26/22 8:59:00 EST Basic Metabolic Panel Cardiac Monitoring Communication Order Physician to Nursing Communication Order Physician to Nursing CT Abdomen/Pelvis w/o Contrast CT Chest w/o Contrast eGFR Extra Lav Tube Magnesium Level Physical Therapy Evaluate Patient, Develop a Plan of Care and Implement Plan Resuscitation Status - Full Thyroid Stimulating Hormone US Renal -Plan discussed w/ patient, nursing staff and CRM. This report was transcribed using voice recognition software. Every effort was made to ensure accuracy, however, inadvertently computerized vp publisher development mistakes may be present. Extracted from: Title:HypoNa Author:Sia RICE, Evan Date: Impression and Plan 1. Acute hypovolemic hyponatremia with normal baseline sodium: Likely from volume depletion. Sodium chuck at 129 and normalized to 135. 2. Heart failure with EF 40% and moderate to severe TR status post AICD: She was on Lasix and spironolactone prior to admission; will defer to cardiology whether diuretics need to be resumed on outpatient basis. 3. Acute kidney injury: Likely from volume depletion. Cr normalized Will sign off at this time; please reconsult if needed. Extracted from: Title:APSO Note Author:SARMAD KAHN-ROD, Carol Saleh ate:03/25/22 1. Bacteremia (R78.81: Bacte remia) Unclear caution - urine is neg -03/23: Bl. cx. prelim - Streptococcus species Non Hemolytic -03/24: Bl. cx. - prelim - pending -Levaquin initiated in ED -> transitioned to -> IV vanco, IV cefepime - rx. to dose - 03/23 -Consult ID - pending -CT chest - pending -CT abd/pelvis - pending 2. Hypoxia (R09.02: Hypoxemia) Per chart review nrsng reported pulse ox of 84% but not documented -Denies home 02 use -> Remains on NC - will wean down -Flu A&B, COVID 19 - neg -CXR: No acute process -CT chest: as above -Procal level - 1.08 -Sputum cx. - pending -Med nebs, mucinex, IS, supplemental 02 -IV Azithromycin - 03/23 3. Urinary tract infection (N39.0: Urinary tract infection, site not specified) -Urine cx. - mixed skin contaminants 4. Fever (R50.9: Fever, unspecified) 2/2 above -See above 5. Elevated troponin (R77.8: Other specified abnormalities of plasma proteins) Hx. of non ischemic cardiomyopathy -Consult FT/HV - no further inpt. cardiac w/u planned -> cont. chronic meds -F/U w/ primary drop pit worker as outpt. 6. Hyponatremia (E87.1: Hypo-osmolality and hyponatremia) Acute on chronic -Asymptomatic -Baseline Na level: 131 -Consult nephro - hold spironolactone, IV bolus x 1, hold furosemide, spironolactone until reviewed w/ cardio - see cardio recs to resume home meds as prior -Na levels q6 per nephro -TSH - pending -Trend BMP 7. Chronic systolic heart failure (I50.22: Chronic systolic (congestive) heart failure) -Consult FT/HV - euvolemic, stable for d/c from cardio standpoint on chronic home medications -Hold spironolactone per nephro -F/U as above 8. Presence of combination internal cardiac defibrillator (ICD) and pacemaker (Z95.810: Presence of automatic (implantable) cardiac defibrillator) Hx. of BiV ICD -In situ 9. History of atrial fibrillation (Z86.79: Personal history of other diseases of the circulatory system) -Carvedilol, xarelto, 10. Hypertension (I10: Essential (primary) hypertension) -Carvedilol, losartan, -Hold furosemide, spironolactone - resume at d/c per cardio 11. Hyperlipidemia (E78.5: Hyperlipidemia, unspecified) -Simvastatin 12. Hypothyroidism (E03.9: Hypothyroidism, unspecified) -Levothyroxine, 13. Glaucoma (H40.9: Unspecified glaucoma) -Timolol 14. Chronic GERD (K21.9: Gastro-esophageal reflux disease without esophagitis) -PPI 15. Obesity (E66.9: Obesity, unspecified) BMI 33 -Educated on need for lifestyle modifications with goal of weight loss as obesity has a negative impact on co-morbid conditions. 16. History of gout (Z87.39: Personal history of other diseases of the musculoskeletal system and connective tissue) -Allopurinol, gabapentin 17. History of breast cancer (Z85.3: Personal history of malignant neoplasm of breast) S/P radical mastectomy 18. DVT prophylaxis (Z29.9: Encounter for prophylactic measures, unspecified) -Xarelto Orders: gabapentin, 400 mg = 4 cap(s), Cap, Oral, BID, Routine, Start date 03/25/22 21:00:00 EST, 03/25/22 10:21:00 EST ipratropium, 2.5 mL, Soln-Inh, NEB, QID, Routine, Start date 03/25/22 12:00:00 EST levalbuterol, 0.63 mg = 3 mL, Soln-Inh, Inhalation, QID, Routine, Start date 03/25/22 12:00:00 EST, 03/25/22 8:30:00 EST Cardiac Monitoring Communication Order Physician to Nursing Consult to Infectious Disease Physician CT Abdomen/Pelvis w/o Contrast CT Chest w/o Contrast Incentive Spirometry Resuscitation Status - Full Thyroid Stimulating Hormone -Plan discussed w/ patient, nursing staff and CRM. This report was transcribed using voice recognition software. Every effort was made to ensure accuracy, however, inadvertently computerized vp publisher development mistakes may be present. Extracted from: Title:APSO Note Author:Balbina RICE, Abeer Date:05/24/21 1. Fever (R50.9: Fever, unsp ecified) Abnormal UA on admission, CXR with vage opacity 2 bottle of blood Cx with gram positive cocci in chain F/U sputum/ urine Cx F/U final Blood Cx and repeated blood Cx IV antibiotics and reassess Ordered: 2. Hypoxia (R09.02: Hypoxemia) Desat to 84% in the ER as per the notes, Not on home O2, On 2 L NC today , likely due to above 3. Urinary tract infection (N39.0: Urinary tract infection, site not specified) See #1 4. Elevated troponin (R77.8: Other specified abnormalities of plasma proteins) Slight elevation, pt presented with infection, likely type II telemetry 5. Hyponatremia (E87.1: Hypo-osmolality and hyponatremia) Improving, Na level is trending up Received IVF on admission Hx of CHF, with with AICD, F/U Na level 6. Chronic systolic heart failure (I50.22: Chronic systolic (congestive) heart failure) Not in acute exacerbation 7. Presence of combination internal cardiac defibrillator (ICD) and pacemaker (Z95.810: Presence of automatic (implantable) cardiac defibrillator) No recent firing 8. History of atrial fibrillation (Z86.79: Personal history of other diseases of the circulatory system) C/W BB and Xarelto 9. Hypertension (I10: Essential (primary) hypertension) C/w home meds 10. Hyperlipidemia (E78.5: Hyperlipidemia, unspecified) statin 11. Chronic GERD (K21.9: Gastro-esophageal reflux disease without esophagitis) was on PPI at home 12. History of gout (Z87.39: Personal history of other diseases of the musculoskeletal system and connective tissue) allopurinol 13. History of breast cancer (Z85.3: Personal history of malignant neoplasm of breast) s/p right radical mastectomy in 1997 14. Obesity (E66.9: Obesity, unspecified) Lifestyle modification and outpatient follow up with PCP Orders: Basic Metabolic Panel Blood Culture Charcoal Blood Culture Charcoal eGFR Extra Lav Tube Sodium Level This report was transcribed using voice recognition software , Every effort was made to ensure accuracy , however, inadvertently computerized vp publisher development mistakes may be present . Extracted from: Title:Progress/SOAP Note Author:Wilfred Wu. Date:03/24/22 Stable for discharge from [facility] perspective. Follow-up with her outpatient drop pit worker. Continue same medications as patient was admitted with for heart failure. We will sign off cardiology 1. Fever (R50.9: Fever, unspecified) 2. Hypoxia (R09.02: Hypoxemia) 3. Urinary tract infection (N39.0: Urinary tract infection, site not specified) 4. Elevated troponin (R77.8: Other specified abnormalities of plasma proteins) 5. Hyponatremia (E87.1: Hypo-osmolality and hyponatremia) 6. Chronic systolic heart failure (I50.22: Chronic systolic (congestive) heart failure) 7. Presence of combination internal cardiac defibrillator (ICD) and pacemaker (Z95.810: Presence of automatic (implantable) cardiac defibrillator) 8. History of atrial fibrillation (Z86.79: Personal history of other diseases of the circulatory system) 9. Hypertension (I10: Essential (primary) hypertension) 10. Hyperlipidemia (E78.5: Hyperlipidemia, unspecified) 11. Chronic GERD (K21.9: Gastro-esophageal reflux disease without esophagitis) 12. History of gout (Z87.39: Personal history of other diseases of the musculoskeletal system and connective tissue) 13. History of breast cancer (Z85.3: Personal history of malignant neoplasm of breast) 14. Obesity (E66.9: Obesity, unspecified) Extracted from: Title:Consult Note Author:Key London MD. Date:03/23/22 Patient with nonischemic car diomyopathy and chronic systolic heart failure comes in with systemic complaints sounding more like infection possibly pneumonia or UTI then cardiac event. Elevated troponin probably represents congestive heart failure which is chronic and acute renal failure. Would not recommend any further intervention at this point in time. Acceptable to continue cardiac meds as you have done including Xarelto simvastatin carvedilol thank you for the consultation 1. Fever (R50.9: Fever, unspecified) 2. Hypoxia (R09.02: Hypoxemia) 3. Urinary tract infection (N39.0: Urinary tract infection, site not specified) 4. Elevated troponin (R77.8: Other specified abnormalities of plasma proteins) 5. Hyponatremia (E87.1: Hypo-osmolality and hyponatremia) 6. Chronic systolic heart failure (I50.22: Chronic systolic (congestive) heart failure) 7. Presence of combination internal cardiac defibrillator (ICD) and pacemaker (Z95.810: Presence of automatic (implantable) cardiac defibrillator) 8. History of atrial fibrillation (Z86.79: Personal history of other diseases of the circulatory system) 9. Hypertension (I10: Essential (primary) hypertension) 10. Hyperlipidemia (E78.5: Hyperlipidemia, unspecified) 11. Chronic GERD (K21.9: Gastro-esophageal reflux disease without esophagitis) 12. History of gout (Z87.39: Personal history of other diseases of the musculoskeletal system and connective tissue) 13. History of breast cancer (Z85.3: Personal history of malignant neoplasm of breast) 14. Obesity (E66.9: Obesity, unspecified) Extracted from: Title:HypoNa Author:Evan Stovall MD Date: Impression and Plan 1. Acute hypovolemic hyponatremia with normal baseline sodium: Likely from volume depletion. Sodium chuck at 129. Recommend stopping spironolactone for today. We will give 500 cc of normal saline bolus. Please check sodiums every 6 hours. 2. Heart failure with unknown EF status post AICD: Please update 2D echo. She was on Lasix and spironolactone prior to admission; will defer to cardiology whether diuretics need to be resumed on outpatient basis. 3. Acute kidney injury: Likely from volume depletion. IV fluids as above. Thank you for involving us in the consultation of this patient. Please feel free to call with any questions. No in person nephrology service available tomorrow. Extracted from: Title:Admission H & P Author:Kris CHIANG DO Date:03/23/22 1. Fever (R50.9: Fever, unsp ecified) Suspect urinary tract infection based on abnormal UA however await urine culture. Note below as well. Chest x-ray demonstrates vague opacity I suspect however this is overlying breast tissue on the left which she does not have from a prior mastectomy on the right responsible for the symmetry. Patient however does have a cough (see below) therefore differential also includes pneumonia versus bronchitis. Note patient was negative for influenza A&B and COVID 19. Differential also includes bronchitis of either bacterial or viral origin. Patient does have allergies to Ceclor therefore Rocephin has not been initiated. Agree with Levaquin pending further evaluation as it would cover both respiratory and urinary pathogens. Await urine culture. If patient develops a productive cough we will send sputum for analysis. Await blood cultures. We will check procalcitonin. Do not feel that patient at present is septic Ordered: levofloxacin + Dextrose 5% in Water intravenous solution 150 mL, 750 mg = 150 mL, IV Piggyback, q24hr, Routine, Start date 03/24/22 1:42:00 EST, 150 mL/hr, Infuse over 1 hour(s), 03/24/22 1:42:00 EST 2. Hypoxia (R09.02: Hypoxemia) Note Per discussion with emergency sack department supervisor nursing had witnessed patient on continuous monitor with sats as low as 84%. Curiously when she first presented she had recorded saturation of 93%. She denied any shortness of breath and her lungs were clear to auscultation. We will continue O2 for now pending above work-up. Do not feel that patient is volume overloaded which she would be at risk for with below. Per review of the emergency department documents patient did receive some fluid in the emergency department. We will be cautious with additional fluid based on her history in light of a normal lactic acid, normal creatinine not prerenal and not hypotensive Ordered: Procalcitonin 3. Urinary tract infection (N39.0: Urinary tract infection, site not specified) Await urine culture. Continue Levaquin 4. Elevated troponin (R77.8: Other specified abnormalities of plasma proteins) Slight elevation. Please note patient has nonischemic cardiomyopathy. She denied any chest pain. She was denying any shortness of breath. EKG demonstrates paced ventricle. There were no subsequent troponins ordered we therefore reorder and if rising will complete trend and consider cardiology consult. Question if this is a type II in response to above Ordered: Troponin 5. Hyponatremia (E87.1: Hypo-osmolality and hyponatremia) Patient had reportedly received IV fluids in the squad. We will be cautious about additional fluids with her history of cardiomyopathy. In regards to above diagnosis this could potentially further support pneumonia if this were secondary to SIADH. Could also be due to loop diuretic 6. Chronic systolic heart failure (I50.22: Chronic systolic (congestive) heart failure) Patient states she had an echocardiogram at [place] ordered by her drop pit worker in [place]. She indicates that there was decreased function I suspect she is referring to ejection fraction. Await confirmation of home meds she had been on Coreg, losartan, Lasix and Aldactone we will continue if confirmed while watching electrolytes. Do not feel the patient is volume overloaded despite reports that patient received fluid in route via the squad 7. Presence of combination internal cardiac defibrillator (ICD) and pacemaker (Z95.810: Presence of automatic (implantable) cardiac defibrillator) No recent firing of the defibrillator. She denies any history of cardiac arrest or known history of ventricular tachycardia likely this was placed in response to diminished ejection fraction in the past 8. History of atrial fibrillation (Z86.79: Personal history of other diseases of the circulatory system) Await confirmation of home meds if confirmed she is on Coreg we will continue this, continue Xarelto 9. Hypertension (I10: Essential (primary) hypertension) Await confirmation of home meds if on Coreg and losartan will be continued 10. Hyperlipidemia (E78.5: Hyperlipidemia, unspecified) Continue statin once confirmed 11. Chronic GERD (K21.9: Gastro-esophageal reflux disease without esophagitis) Continue PPI once confirmed 12. History of gout (Z87.39: Personal history of other diseases of the musculoskeletal system and connective tissue) Continue allopurinol once confirmed 13. History of breast cancer (Z85.3: Personal history of malignant neoplasm of breast) Patient had a right radical mastectomy in 1997 for breast cancer. She received chemo and radiation therapy with no recent recurrence 14. Obesity (E66.9: Obesity, unspecified) With multiple comorbidities patient would benefit from weight loss Orders: acetaminophen, 650 mg = 2 tab(s), Tab, Oral, q6hr PRN Pain, Routine, Start date 03/23/22 5:20:00 EST, 03/23/22 5:20:00 EST guaifenesin, 1,200 mg = 2 tab(s), Tab-ER, Oral, BID, Routine, Start date 03/23/22 9:00:00 EST, 03/23/22 5:20:00 EST hydrALAZINE, 10 mg = 0.5 mL, Injection, IV Push, q6hr PRN Other (see comment), Routine, Start date 03/23/22 5:20:00 EST, 03/23/22 5:20:00 EST Sodium Chloride 0.9% intravenous solution 1,000 mL, 1,000 mL, IV, 30 mL/hr, Routine, Start date 03/23/22 5:20:00 EST, 33.3 hour(s), Total volume (mL): 1,000, 103.5 kg, 2.23, m2 Basic Metabolic Panel CBC w/ Auto Diff Elevate Head of Bed Legionella Antigen Urine Notify Provider Vital Signs Notify Provider Vital Signs Oxygen Protocol Place in Status Pneumonia Quality Measures Regular Diet Sputum Culture Vital Signs Weight Weight Admit patient as a general inpatient with hypoxia febrile illness anticipating she will require 2 midnight stay Extracted from: Title:ED Note Author:Annie Zaldivar DO Date :03/23/22 Elevated troponin (R77.8: Ot her specified abnormalities of plasma proteins) Hyponatremia (E87.1: Hypo-osmolality and hyponatremia) Pneumonia (J18.9: Pneumonia, unspecified organism) Orders: azithromycin + Sodium Chloride 0.9% intravenous solution 250 mL, 500 mg = 1 EA, IV Piggyback, Daily, STAT, Start date 03/23/22 1:42:00 EST, 250 mL/hr, Infuse over 60 minute(s), 03/23/22 1:42:00 EST levofloxacin + Dextrose 5% in Water intravenous solution 150 mL, 750 mg = 150 mL, IV Piggyback, Once, Stop date 03/23/22 1:42:00 EST, STAT, Start date 03/23/22 1:42:00 EST, 150 mL/hr, Infuse over 1 hour(s), 03/23/22 1:42:00 EST ondansetron, 4 mg = 2 mL, Injection, IV Push, Once, Stop date 03/23/22 3:01:00 EST, STAT, Start date 03/23/22 3:01:00 EST, 03/23/22 3:01:00 EST Sodium Chloride 0.9% intravenous solution, 1,000 mL, Soln-IV, IV, Once, Stop date 03/23/22 0:45:00 EST, STAT, Start date 03/23/22 0:45:00 EST, Infuse over 61, minute(s) Automated Diff Blood Culture Charcoal Blood Culture Charcoal CBC w/ Auto Diff Comprehensive Metabolic Panel Continuous Pulse Oximetry ECG 12 Lead Adult ED Cardiac Monitoring ED Physician consult Hospitalist for continued care eGFR Influenza A&B Ag Lactic Acid Oxygen Therapy PT & PTT Rapid COVID Antigen ([facility]) Troponin UA With Cult Reflex XR Chest Single View Future Appointments Appointment Date:04/19/2022 09:15:00 AM Scheduled Provider:Aron HANCOCK MD Location:[facility] Appointment Type:URO Office Visit [facility]11-28-2022 Hospital Discharge instructions Patient Education 03/28/2022 11:32:23 Bacteremia, Adult Bacteremia, Adult Bacteremia is the presence of bacteria in the blood. When bacteria enter the bloodstream, they can cause a life-threatening reaction called sepsis. Sepsis is a medical emergency. What are the causes? This condition is caused by bacteria that get into the blood. Bacteria can enter the blood from an infection, including: A skin infection or injury, such as a burn or a cut. A lung infection (pneumonia). An infection in the stomach or intestines. An infection in the bladder or urinary system (urinary tract infection). A bacterial infection in another part of the body that spreads to the blood. Bacteria can also enter the blood during a dental or medical procedure, from bleeding gums, or through use of an unclean needle. What increases the risk? This condition is more likely to develop in children, older adults, and people who have: A long-term (chronic) disease or condition like diabetes or chronic kidney failure. An artificial joint or heart valve, or heart valve disease. A tube inserted to treat a medical condition, such as a urinary catheter or IV. A weak disease-fighting system (immune system). Injected illegal drugs. Been hospitalized for more than 10 days in a row. What are the signs or symptoms? Symptoms of this condition include: Fever and chills. Fast heartbeat and shortness of breath. Dizziness, weakness, and low blood pressure. Confusion or anxiety. Pain in the abdomen, nausea, vomiting, and diarrhea. Bacteremia that has spread to other parts of the body may cause symptoms in those areas. In some cases, there are no symptoms. How is this diagnosed? This condition may be diagnosed with a physical exam and tests, such as: Blood tests to check for bacteria (cultures) or other signs of infection. Tests of any tubes that you have had inserted. These tests check for a source of infection. Urine tests to check for bacteria in the urine. Imaging tests, such as an X-ray, a CT scan, an MRI, or a heart ultrasound. These check for a sourceof infection in other parts of your body, such as your lungs, heart valves, or joints. How is this treated? This condition is usually treated in the hospital. If you are treated at home, you may need to return to the hospital for medicines, blood tests, and evaluation. Treatment may include: Antibiotic medicines. These may be given by mouth or directly into your blood through an IV. You may need antibiotics for several weeks. At first, you may be given an antibiotic to kill most types ofblood bacteria. If tests show that a certain kind of bacteria is causing the problem, you may be given a different antibiotic. IV fluids. Removing any catheter or device that could be a source of infection. Blood pressure and breathing support, if needed. Surgery to control the source or the spread of infection, such as surgery to remove an implanted device, abscess, or infected tissue. Follow these instructions at home: Medicines Take [id number] and prescription medicines only as told by your health care provider. If you were prescribed an antibiotic medicine, take it as told by your health care provider. Do notstop taking the antibiotic even if you start to feel better. General instructions Rest as needed. Ask your health care provider when you may return to normal activities. Drink enough fluid to keep your urine pale yellow. Do not use any products that contain nicotine or tobacco, such as cigarettes, e- cigarettes, and chewing tobacco. If you need help quitting, ask your health care provider. Keep all follow-up visits as told by your health care provider. This is important. How is this prevented? Wash your hands regularly with soap and water. If soap and water are not available, use hand laboratory administrative director. You should wash your hands: ?After using the toilet or changing a diaper. ?Before preparing, cooking, serving, or eating food. ?While caring for a sick person or while visiting someone in a hospital. ?Before and after changing bandages (dressings) over wounds. Clean any scrapes or cuts with soap and water and cover them with a clean bandage. Get vaccinations as recommended by your health care provider. Practice good oral hygiene. [place] your teeth two times a day, and floss regularly. Take good care of your skin. This includes bathing and moisturizing on a regular basis. Contact a health care provider if: Your symptoms get worse, and medicines do not help. You have severe pain. Get help right away if you have: Pain. A fever or chills. Trouble breathing. A fast heart rate. Skin that is blotchy, pale, or clammy. Confusion. Weakness. Lack of energy or unusual sleepiness. New symptoms that develop after treatment has started. These symptoms may represent a serious problem that is an emergency. Do not wait to see if the symptoms will go away. Get medical help right away. Call your local emergency services (911 in the [place] Do not drive yourself to the hospital. Summary Bacteremia is the presence of bacteria in the blood. When bacteria enter the bloodstream, they can cause a life-threatening reaction called sepsis. Bacteremia is usually treated with antibiotic medicines in the hospital. If you were prescribed an antibiotic medicine, take it as told by your health care provider. Do notstop taking the antibiotic even if you start to feel better. Get help right away if you have any new symptoms that develop after treatment has started. This information is not intended to replace advice given to you by your health care provider. Make sure you discuss any questions you have with your health care provider. Document Released: 01/29/2007 Document Revised: 09/06/2019 Document Reviewed: 09/06/2019 [employer] Patient Education 2019 [employer]. 03/23/2022 23:29:07 Core Measures- Pneumonia MC (Custom) Pneumonia Pneumonia is an infection of the lungs which may be viral or bacterial (with germs). Most forms of infectious (disease producing) pneumonias are bacterial. This means the are caused by a germ. Usually these infections are caused by breathing in infectious particles into the respiratory tract (lungs). SYMPTOMS The most common symptoms (problems) are: Cough. Fever. Chest pain. Increased rate of breathing. Wheezing. Sputum production. DIAGNOSIS Often these infections are diagnosed on exam by your caregiver. Sometimes the diagnosis (learning what is wrong) may require chest x-rays, blood analysis, and or cultures. Your caregiver may do tests (such as blood gasses or pulse oximetry) to see how well your lungs areworking. Blood cultures may be done to help find the cause of your pneumonia. TREATMENT The bacterial pneumonias generally respond well to antibiotics (medications which kill germs). Viral infections must run their course. These infections will not respond to antibiotics. A pneumococcalvaccine (shot) is available to prevent a common bacterial pneumonia. This is usually suggested for the elderly and for other groups of higher risk individuals, such as those on chemotherapy or those that have problems with their immune system. You will have pneumococcal screening or vaccination if you are over 65 years old and are not immunized. You have received a pneumococcal vaccination on: If you are a smoker, it is time to quit. You will receive instructions on how to best stop smoking.Your caregivers can provide medications and counseling to help you quit. HOME CARE INSTRUCTIONS Cough suppressants may be used if you are losing too much rest; however cough protects you by clearing your lungs. This is one reason for not using cough suppressants, if able, as they take away thisprotection. Your caregiver may have prescribed an antibiotic if she or he feels your cough is caused by a bacterial infection. Take all your medication until you are finished. Your caregiver may also prescribe an expectorant to loosen the mucous to be coughed up. Only take wmoz-toe-ehryruj or prescription medicines for pain, discomfort, or fever as directed by your caregiver. Smoking is a common cause of bronchitis and can contribute to pneumonia. Stopping this habit is an important self help step. A cold steam vaporizer or humidifier in your room or home may help loosen mucous. Cough is most often worse at night. Sleeping in a semi-upright position in a recliner, or using a couple pillows under your head will help with this. Get rest as you feel it is needed. Your body will usually let you know when to rest. If you are a smoker and continue to smoke, your cough may last several weeks after your pneumonia has cleared. Exercise your lungs. Deep breathing helps to open the air passages in your lungs. Coughing helps tobring up sputum (mucus) from your lungs. Take a deep breath and hold the breath as long as you can.Then push the air out of your lungs with a deep, strong cough. Put any sputum that you have coughedup into a tissue and throw it away. Take 10 deep breaths in a row every hour that you are awake. Remember to follow each deep breath with a cough. SEEK IMMEDIATE MEDICAL CARE IF: You develop more purulent (pus like) sputum, have uncontrolled temperature, or your illness becomesworse. This is especially true if you are elderly or weakened from any other disease. You cannot control your cough with suppressants and are losing sleep. You begin coughing up blood. You develop pain which is getting worse or is uncontrolled with medications. You develop an oral temperature above , after being afebrile (not having a temperature for one or more days). Any of the symptoms which initially brought you in for treatment are getting worse rather than better, or you develop shortness of breath or chest pain. Dial 911 for immediate emergency care. AGREEMENT BETWEEN PATIENT AND HEALTHCARE TEAM: Your signature on this document represents an understanding between you and the healthcare team that took care of you today. That means that you: Understand these discharge instructions. Will monitor your condition. Will seek immediate medical care as instructed. Document Released: 04/17/2006 Document Re-Released: 10/13/2008 [facility] Patient Information 2009 [facility]. Follow Up Care 03/23/2022 00:44:11 With:Jose Francisco GALEANO Address: [address] [place] [address]- Business (1) When:04/19/2022 09:15:00 With:Wilfred London Address: [address] [place] [address]- Business (1) When:1 to 2 weeks With:TIKA JOY [address]: [address] [place] [address]- Business (1) When: Unknown [facility]11-23-20[facility]Comment on above:Result Comment: Electronically Signed By: Kris CHIANG DO\Date and Time Signed: 03/23/22 05:25 [id number] Evaluation + Plan note Extracted from: Title:ED Note Author:Dodie Lee Martínez Christianson Jose te:11/14/21 1. Upper respiratory infecti on (J06.9: Acute upper respiratory infection, unspecified) 2. Eloped from emergency department (Z53.21: Procedure and treatment not carried out due to patient leaving prior to being seen by health care provider) [facility]03-30-2021 NoteHNO ID: [id number] Author: Evens Bernal (Rebeka Oropeza Service: ? Author Type: Nurse Practitioner Type: Progress Notes Filed: 07/28/2020 5:10 PM Note Text: Ms. Felix is a 75 year old female who comes in for evaluation of sinus issues and sore throat. 75yo F presents to clinic for chronic maxillary sinus issues and trouble swallowing for the last 6 months that has started to worsen. Patient reports that she thinks that the increase in saliva is due to her sinuses. Patient constantly feels like she needs to clear her throat. Previously worked up for acid reflux and was on PPIs then transitioned to Pepcid which the patient states has been helping with her symptoms. Trouble swallowing both liquids and solids, occasionally chokes when eating. Patient has tried smaller portions, more chewing between bites, and more liquid to help but still experiencing these issues. When she does swallow, she feels a thick mucus sensation, sometimes goes down the wrong pipe. Patient is currently experiencing sinus pressure with mild headache. Patient endorses PND. Never been treated with antibiotics in the past. 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 Past history : PAST MEDICAL HISTORY Diagnosis Date - CHF (congestive heart failure) (HCC) - History of bilateral breast cancer - Hypothyroidism - Neuropathy Current medication: Current Outpatient Medications Medication Sig - acetaminophen (TYLENOL) 325 mg tablet Take 650 mg by mouth every 6 hours as needed. - allopurinol (ZYLOPRIM) 100 mg tablet TAKE 1 TABLET BY MOUTH ONCE DAILY FOR 90 DAYS - carvedilol (COREG) 6.25 mg tablet Take 6.25 mg by mouth twice daily with meals. - cholecalciferol (VITAMIN D3) 50 mcg (2,000 unit) tablet Take 2,000 Units by mouth once daily. - dorzolamide-timolol (COSOPT) 22.3-6.8 mg/mL ophthalmic solution Use 1 Drop in both eyes twice daily. - famotidine (PEPCID) 20 mg tablet Take 20 mg by mouth at bedtime as needed. - fluvoxaMINE (LUVOX) 100 mg tablet Take 100 mg by mouth twice daily. - furosemide (LASIX) 40 mg tablet Take 10 mg by mouth at bedtime as needed. - levothyroxine (SYNTHROID) 50 mcg tablet Take 50 mcg by mouth every morning. Take On an Empty Stomach - loratadine (CLARITIN) 10 mg tablet Take 10 mg by mouth at bedtime as needed. - losartan (COZAAR) 25 mg tablet TAKE 1 TABLET BY MOUTH ONCE DAILY FOR 90 DAYS - Magnesium Oxide 500 mg tab Take 500 mg by mouth once daily. - therapeutic multivitamin-minerals (THERA-M PLUS) 9 mg iron-400 mcg tablet Take 1 tablet by mouth once daily. - rivaroxaban (XARELTO) 20 mg tablet TAKE 1 TABLET BY MOUTH ONCE DAILY WITH SUPPER - simvastatin (ZOCOR) 40 mg tablet Take 40 mg by mouth daily at bedtime. - spironolactone (ALDACTONE) 25 mg tablet TAKE 1 2 (ONE HALF) TABLET BY MOUTH ONCE DAILY FOR 90 DAYS - Lactobacillus acidophilus (PROBIOTIC ORAL) Take by mouth. - flaxseed oil (OMEGA 3 ORAL) Take by mouth. - lactase (ULTRA DAIRY DIGESTIVE ORAL) Take by mouth. No current facility-administered medications for this visit. Allergies: ALLERGIES Allergen Reactions - Ceclor [Cefaclor] Rash, Swelling And redness Social history: Social History Tobacco Use - Smoking status: Never Smoker - Smokeless tobacco: Never Used Substance Use Topics - Alcohol use: Yes - Drug use: Never Family history: No family history on file. There are no exam notes on file for this visit. Physical exam: General Appearance: 75 year old female is alert, oriented, not in acute distress. Hearing is grossly normal, voice is raspy. There is no tenderness with percussion over the paranasal sinuses. Eyes: PEERLA, extraocular movements are full. Nose: Clean, septum is straight. There are no polyps. There is no discharge. Oropharynx: Teeth are in good repair. Lips, gums, tongue and posterior pharynx are within normal limits. Gag reflex is intact. Nasopharynx: Visualization is limited. Hypopharynx: Visualization is limited. Neck: No masses palpated. Thyroid is not enlarged. Trachea is in the midline. Ears: Both ear canals are clean. Both TMs are intact and mobile. Impression: Throat discomfort, swallowing problem, and hoarseness of voice exact etiology unclear. GERD may be contributing. Plan of management: I will perform fiberoptic laryngoscopy and discuss further management options with her. Procedure: After the procedure was explained to the patient and patient agreed to have the procedure done 1% Sushil-Synephrine and 4% Xylocaine was sprayed to both nasal cavities. Fiberoptic scope was inserted through the right nasal airway. Right nasal airway was normal. Nasopharynx was normal. Hypopharyngeal exam revealed moderately severe mucosal thickening in the posterior commissure with mild hyperemia. There is pooling of saliva. Both vocal cords are mobile. Findings were explained to the patient. She will have EGD. We rain (more content not included)...[facility]03-05-2021 NoteHNO ID: [id number] Author: Martin Gibson Service: ? Author Type: Physician Type: Progress Notes Filed: 07/03/2020 8:53 AM Note Text: This document has been created with the use of voice recognition technology. It may contain inaccuracies: misspellings, inaccurate syntax or word sense that escaped review. CHIEF COMPLAINT: Yenny Felix is a 75 year old female who presents today for follow up of bilateral knee pain secondary to osteoarthritis. HISTORY OF PRESENT ILLNESS: PAIN EVALUATION 07/03/2020 0839 Pain Level: 5 Pain Location: ? bilateral knees Description: Aching Duration Units: Unknown Frequency: Intermittent Intervention: Reposition;Relaxation;Positioning;Medication;Heat HISTORY: Yenny Felix is here for follow up of complaints of bilateral knee pain right greater than left. She states that the injection she received in December of last year offered relief. She requested we inject both knees again today. No new injury. No hip or neurologic complaints. No other musculoskeletal complaints ROS: REVIEW OF SYMPTOMS: Constitutional: patient denies any recent fever or significant change in weight Gastrointestinal: patient denies any current abdominal discomfort Musculoskeletal: as noted in the HPI Neurologic: as noted in the HPI SOCIAL HISTORY: Tobacco Use: Not on file ALLERGIES: ALLERGIES Allergen Reactions - Ceclor [Cefaclor] Rash, Swelling And redness PAST MEDICAL HISTORY: PAST MEDICAL HISTORY Diagnosis Date - CHF (congestive heart failure) (HCC) - History of bilateral breast cancer - Hypothyroidism - Neuropathy SOCIAL HISTORY: Tobacco Use: Not on file EXAMINATION: GENERAL: Appears healthy, well-nourished, no deformities. ORIENTATION: Alert and oriented to person place and time HABITUS: Normal GAIT: Normal, the patient did not have trouble getting onto the exam table. bilateral knee exam: No effusion, Tenderness with patellar apprehension Right knee valgus left knee neutral alignment Active full extension, flexion 120. Good patellar tracking/mild patella femoral crepitation Mild pain with palpating medial compartment, mild pain with palpating lateral compartment. Stable to varus and valgus stresses. Ne is negative Negative anterior/posterior drawer. Palpable dorsalis pedis pulse Calf soft and nontender. Hip exam negative Intact sensation to light touch distally. . RADIOGRAPHS: XR Obtained today and personally reviewed by myself demonstrating none today x-rays some January 08, 2020 reviewed with severe lateral compartment osteoarthritis on the right moderate on the left IMPRESSION: Encounter Diagnosis ICD-10-CM 1. Primary osteoarthritis of both knees M17.0 Large Joint Arthro/Inj: bilateral knee joints The risks, benefits and alternatives of the procedure were reviewed with the patient/surrogate, who agreed to proceed. Written Consent Obtained: Yes Sign In Communication: Completed Time Out: Time Out completed The Time-Out verifies the correct patient, procedure, side/site, position (if applicable) and completion and review of fire risk assessment/protocols (if appropriate): Affirmation of Time Out: Yes Signout Discussion: yes 07/03/2020 8:52 AM The procedure site was prepped in the usual sterile fashion. Allergies were reviewed Site: bilateral knee joints Medications (Right): 40 mg triamcinolone acetonide 40 mg/mL Medications (Left): 40 mg triamcinolone acetonide 40 mg/mL Anesthetics (Right): 4 mL lidocaine (PF) 10 mg/mL (1 %) Anesthetics (Left): 4 mL lidocaine (PF) 10 mg/mL (1 %) Outcome: Tolerated well, no immediate complications Post-injection instructions were reviewed with the patient and the patient voiced understanding of these instructions. Plan: Patient with bilateral knee osteoarthritis. She requested we injected both knees today with cortisone. We again discussed surgical options especially with the right knee. We discussed intervals between injections. Follow-up as symptoms dictate Martin Gibson, [facility] Future Appointments Appointment Date:04/19/2022 09:15:00 AM Scheduled Provider:Aron HANCOCK MD Location:[facility] Jessica Appointment Type:URO [facility] Future Appointments Appointment Date:10/04/2022 09:45:00 AM Scheduled Provider:Aron HANCOCK MD Location:[facility] Jessica Appointment Type:URO Office Visit [facility] evaluation noteNo assessment information available [facility] Work Phone: evaluation note* Diagnosis Onset Date Resolution Status Primary osteoarthritis of knees, bilateral acute [facility] Work Phone: evaluation note* Diagnosis Primary open angle glaucoma of right eye, mild stage [facility] Diagnosis Cardiomyopathy (CMS-HCC)- Primary Persistent atrial fibrillation (CMS-HCC) Atrial fibrillation Chronic systolic heart failure ([facility]-HCC) Chronic systolic heart failure Left bundle branch block (LBBB) [facility] N[facility] No data available for this section [facility] No data available for this section [facility]ructionsNot on filedocumented in this encounter [facility] filedocumented in this encounter [facility] filedocumented in this encounter [facility] on filedocumented in this encounter [facility] No data available for this section [facility] Summary Purpose Family History No Family History Records FoundNo Family History Records FoundNo Family History Records FoundNo Family History Records FoundNo Family History Records FoundNo Family History Records FoundNo Family History Records FoundNo Family History Records FoundNo Family History Records FoundNo Family History Records FoundNo Family History Records Found Advance Directives No Advanced Directives Records Found Advance Directive Response Recorded Date/ Time Advance Directives No September 29 3 9:26am Advance Directive Response Recorded Date/ Time Advance Directives No September 29 3 8:26am Assessments Diagnosis Pain- Primary Generalized pain Chief Complaint and Reason for Visit Chief Complaint Renal cyst Chief Complaint NEW LT KNEE PAIN NX M25.562 Reason for Visit Primary osteoarthrit is of knees, bilateral Additional Source Comments INFORMATION SOURCE (unrecogn ized section and content) DATE CREATED AUTHOR 10/24/2017 [facility] DATE CREATED AUTHOR AUTHOR'S ORGANIZ ATION 12/04/2020 [facility] DATE CREATED AUTHOR AUTHOR'S ORGANIZ ATION 04/19/2021 [facility] DATE CREATED AUTHOR AUTHOR'S ORGANIZ ATION 08/14/2021 [facility] DATE CREATED AUTHOR AUTHOR'S ORGANIZ ATION 10/09/2022 [facility] DATE CREATED AUTHOR AUTHOR'S ORGANIZ ATION 12/14/2022 [facility] DATE CREATED AUTHOR AUTHOR'S ORGANIZ ATION 02/18/2023 [facility] DATE CREATED AUTHOR AUTHOR'S ORGANIZ ATION 06/29/2023 [facility] DATE CREATED AUTHOR AUTHOR'S ORGANIZ ATION 10/13/2023 [facility] DATE CREATED AUTHOR AUTHOR'S ORGANIZ ATION 12/27/2023 [facility] DATE CREATED AUTHOR AUTHOR'S ORGANIZ ATION 01/03/2024 [facility] Source Comments (unrecognize d section and content) In the event this informatio n is protected by the Federal Confidentiality of Alcohol and Drug Abuse Patient Records regulations: The Federal rules restrict any use of the information to criminally investigate or prosecute any alcohol or drug abuse patient.[facility] Care Team (unrecognized sect ion and content) Senior Software Qa Engineer Relationship Specialty Start Date End Date Tika Joy MD [address] [place] PCP - General Internal Medicine 03/17/17 Senior Software Qa Engineer Relationship Specialty Start Date End Date Tika Joy MD [address] [place], [place] PCP - General Internal Medicine 03/17/17 Team Status: Active Member Role Status Dates Tika Joy MD Primary Care Provider Active Team Status: Inactive Member Role Status Dates Aron Hancock MD Attending Provider Active Tika Joy MD Primary Care Provider Active Senior Software Qa Engineer Relationship Specialty Start Date End Date Tika Joy MD [address] [place] [address] PCP - General 01/09/14 Team Status: Inactive Member Role Status Dates Tika Joy MD Primary Care Provider Active Start: June 21, 2023 End: June 21, 2023 Jose Francisco Tong II, MD Attending Provider Active Start: June 21, 2023 End: June 21, 2023 Senior Software Qa Engineer Relationship Specialty Start Date End Date Tika Joy MD [address] [place] [address] PCP - General 01/09/14 Senior Software Qa Engineer Relationship Specialty Start Date End Date Tika Joy MD [address] [place] [address] PCP - General 01/09/14 Goals (unrecognized section and content) Goals may be documented in a n alternate section Reason for Visit (unrecogniz ed section and content) Reason Comments Med Refill Reason Onset Date Comments Appointment 07/10/2023 Reason Comments Follow-up Hypertension Atrial Fibrillation FOR RECORDS PERTAINING TO PATIENTS WHO ARE OR HAVE BEEN ENROLLED IN A CHEMICAL DEPENDENCY/SUBSTANCEABUSE PROGRAM, SOME INFORMATION MAY BE OMITTED. This clinical summary was aggregated from multiple sources. Caution should be exercised in using it in the provision of clinical care. This summary normalizes information from multiple sources, and as a consequence, information in this document may materially change the coding, format and clinical context of patient data. In addition, data may be omitted in some cases. CLINICAL DECISIONS SHOULD BE BASED ON THE PRIMARY CLINICAL RECORDS. [facility]. provides no warranty or guarantee of the accuracy or completeness of information in this document.
[2024-01-22 13:09] LABS: Anion Gap 9.9; BUN Creatinine Ratio 18.9; Calcium 9.8 mg/dL (8.5-10.1); Carbon Dioxide 28.6 mmol/L (21.0-32.0); Chloride 104 mmol/L (98-107); Estimated GFR (African America 52 (>=60); Estimated GFR (Non-African Ame 43 (>=60); Glucose 101 mg/dL (74-106); Potassium 4.5 mmol/L (3.5-5.1); Sodium 138 mmol/L (136-145)
== END 2024-01-22 12:17 | disposition home or self-care (01) ==
LOC: LAB 12:18
DX: I50.42 Chronic combined systolic (congestive) and diastolic (congestive) heart failure (principal)
CPT/HCPCS: 36415; 80048

== ENCOUNTER 2024-02-24 11:33 | Outpatient (OUT) | payer MEDICARE, OTHER, SELFPAY ==
--- OUTSIDE RECORDS SUMMARY | 2024-02-24 11:38 | XMS_ITS | CCD ---
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 Onset: 2 Episodic Other lower respiratory disease (9 sources) Dyspnea; 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: [Dyspnea, unspecified] 08-17-2017 Episodic Other lower respiratory disease (1 source) Other forms of dyspnea; 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: [Other forms of dyspnea] Onset: 4 Episodic Other nervous system disorders (2 sources) Neuropathy; 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: [Polyneuropathy, unspecified] Onset: 4 12-02-2020 Chronic Other nervous system disorders (1 source) Bilateral meralgia paresthetica; 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: [Meralgia paresthetica, bilateral lower limbs] Onset: 4 08-21-2023 Chronic Other nervous system disorders (1 source) Abnormal reflex; 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: [ABNORMAL REFLEX] Onset: 2 Episodic Other non-traumatic joint disorders (1 source) Pain in left knee; 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: [Left knee pain] 06-21-2023 Episodic Other nutritional; endocrine; and metabolic disorders (1 source) Obesity; 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: [Obesity, unspecified] Onset: 2 Chronic Other upper respiratory infections (1 source) Acute upper respiratory infection; 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: [Acute upper respiratory infection, unspecified] Onset: 2 Episodic Kathrine-; endo-; and myocarditis; cardiomyopathy (except that caused by tuberculosis or sexually transmitted disease) (20 sources) Nonischemic congestive cardiomyopathy; 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: [Dilated cardiomyopathy] Onset: 3 Resolved: 9 08-17-2017 Chronic Pleurisy; pneumothorax; pulmonary collapse (1 source) Pleural effusion; 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: [Pleural effusion, not elsewhere classified] Onset: 2 Episodic Residual codes; unclassified (2 sources) Pain; 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: [Pain, unspecified] 01-08-2020 Episodic Residual codes; unclassified (1 source) Left against medical advice; 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: [Procedure and treatment not carried out due to patient leaving prior to being seen by health care provider] Onset: 2 Episodic Residual codes; unclassified (1 source) Procedure carried out on subject; 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: [Encounter for prophylactic measures, unspecified] Onset: 2 Episodic Residual codes; unclassified (9 sources) Edema; 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: [Edema, unspecified] 08-17-2017 Episodic Residual codes; unclassified (1 source) Pain, unspecified; 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: [Pain, unspecified] Onset: 4 Episodic Residual codes; unclassified (1 source) Family history of ischemic heart disease and other diseases of the circulatory system; 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: [Family history of ischemic heart disease and other diseases of the circulatory system] Onset: 4 Episodic Secondary malignancies (4 sources) Secondary malignant neoplasm of bone; 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] Onset: 2 Chronic Secondary malignancies (1 source) Secondary malignant neoplasm of vertebral column; 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: [Secondary malignant neoplasm of bone] Onset: 4 08-21-2023 Chronic Spondylosis; intervertebral disc disorders; other back problems (1 source) Degeneration of lumbar intervertebral disc; 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: [DDD (degenerative disc disease), lumbar] Onset: 4 08-21-2023 Chronic Superficial injury; contusion (1 source) Contusion of scalp, initial encounter; 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: [Contusion of scalp, initial encounter] Onset: 3 Episodic Thyroid disorders (9 sources) Hypothyroidism; 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: [Hypothyroidism, unspecified] Onset: 2 11-04-2017 Chronic Unclassified (1 source) Asymptomatic microscopic hematuria 10-04-2022 Unclassified (1 source) Pain in left knee; 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: [Pain in left knee] Onset: 4 Unclassified (1 source) Cyst of kidney, acquired; 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: [Cyst of kidney, acquired] Onset: 3 Unclassified (1 source) Device Check Onset: 4 Unclassified (1 source) Unspecified hereditary corneal dystrophies, unspecified eye; 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: [Unspecified hereditary corneal dystrophies, unspecified eye] Onset: 4 Unclassified (1 source) Other persistent atrial fibrillation; 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: [Other persistent atrial fibrillation] Onset: 8 Urinary tract infections (1 source) Urinary tract infectious disease; 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: [Urinary tract infection, site not specified] Onset: 2 Episodic Past or Other Problems Problem Classification Problem Date Documented Da te Episodic/Chronic Other bone disease and musculoskeletal deformities (2 sources) Other specified disorders of bone density and structure, unspecified site; 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: [Other specified disorders of bone density and structure, unspecified site] Onset: 01-07-2022 Episodic Other fractures (1 source) Fracture of seventh thoracic vertebra; 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: [Collapsed vertebra, not elsewhere classified, thoracic region, initial encounter for fracture] Onset: 08-21-2023 08-21-2023 Episodic Other lower respiratory disease (1 source) Hypoxemia; 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: [R09.02] Onset: 03-23-2022 Episodic Other nutritional; endocrine; and metabolic disorders (9 sources) Overweight; 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: [Overweight] Onset: 03-17-2016 08-17-2017 Episodic Other screening for suspected conditions (not mental disorders or infectious disease) (2 sources) Other specified abnormal findings of blood chemistry; 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: [Other specified abnormal findings of blood chemistry] Onset: 12-20-2021 Episodic Unclassified (1 source) FECAL OCCULT BLOOD; 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: [FECAL OCCULT BLOOD] Onset: 03-27-2017 Unclassified (1 source) Exposure to 2019 novel coronavirus; 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: [Contact with and (suspected) exposure to COVID19] Results Test Name Value Interpretation Reference Range Facility Natriuretic peptide B [Mass/ Vol]on 10-12-2023 Natriuretic peptide B (Bld) [Mass/Vol] 289 pg/mL High <100.0 [facility] Comment on above: Performed By: #### 3 0934-4 #### [facility] ([id number]) [address] [place] [address], [address] [place] [address] Don Visual Field - OU - Both Eyeson 06-26-2023 [facility] ReInnervate [facility] XR knee BI 4Von 06-21-2023 XR knee BI 4V [facility] Main [address] [address] XRay Report Signed Patient: Yenny Felix MR#: [id number] [birth year] : 1945 Acct:[id number] Age/Sex: 77 / F ADM Date: 06/21/23 Loc: [facility] [place] Room: Type: [facility] Attending Dr: Jose Francisco Tong II, MD Copies to: Jose Francisco Tong MD Ordering Provider: Jose Francisco Tong MD Date of Service: 06/21/23 XR/XR knee BI 4V: M25.562 - Pain in left knee ([id number]) XR/XR pelvis 1-2V: M25.562 - Pain in [...] Marty Wilburn M.D.06/21/2023 4:16 PM Dictation Location: [place] [address] Transcribed By: [facility] 06/21/231615 Dictated By: Marty Wilburn DO 06/21/231613 Signed By: 06/21/23 [facility]6 [facility] Surgical Pathology Reporton 02-14-2023 Surgical Pathology Report (NOTE) Path Number: [id number] -- Diagnosis -- A. Stomach, endoscopic biopsy: Mild features of reactive gastropathy/chemical gastritis, inactive, negative for Helicobacter pylori. Neither intestinal metaplasia nor dysplasia is seen. B. Hiatal hernia polyp , endoscopic biopsy: Gastric-type mucosa with hyperplastic epithelial changes and granulation tissue reaction. Neither intestinal metaplasia nor dysplasia is seen. C. Colon, transverse, colonoscopic polypectomy: Fragments of adenomatous polyp. Olman Jenkins Electronically Signed Out 02/17/2023 Clinical Information Pre-Op Diagnosis: GASTROESOPHAGEAL REFLUX DISEASE, UNSPECIFIED WHETHER ESOPHAGITIS PRESENT; HX OF COLONIC POLYPS Operative Findings: GASTRIC BIOPSY; HIATAL HERNIA POLYP; TRANSVERSE COLON POLYP Operation Performed: COLONOSCOPY POLYPECTOMY REMOVAL SNARE/STOMA; EGD BIOPSY cd Source of Specimen A: GASTRIC BIOPSY B: HIATEL HERNIA POLYP C: TRANSVERSE COLON POLYP Gross Description A. YENNY FELIX GASTRIC BIOPSY Received in formalin are four ely-white tissue fragments from 0.3 to 0.5 cm and are 0.8 x 0.5 x 0.2 cm in aggregate. Entirely 1cs. B. YENNY FELIX HIATAL HERNIA POLYP Received in formalin are [...] for each. Microscopic examination performed. Processing Lab: [place] [address] [place] [address] Interpretation Performed at [address] SURGICAL PATHOLOGY CONSULTATION Patient Name: YENNY FELIX [facility] Rec: [id number] [facility] ANATOMIC PATHOLOGY [address] [facility]. [place], [place] [address] Normal [facility] CT CERVICAL SPINE WO CONTRAS Ton 12-13-2022 [...] Lyle Dickens DO 12/13/22 Final result Normal [facility] CT HEAD WO CONTRASTon 2022 CT HEAD [...] Baljeet El MD 12/13/22 Final result Normal [facility] Patient Educationon 10-05-19 Patient Education Normal [facility] Urology Office/Clinic Noteon 10-04-2022 Urology Office/Clinic Note Normal [facility] Comment on above: Result Comment: Elec tronically Signed By: Aron HANCOCK MD\.br\Date and Time Signed: 10/04/22 10:07 EDT\.br\Electronically Co-Signed By: Celena Mi\.br\Date and Time Co-Signed: 10/04/22 10:05 EDT RAD - Ultrasound Reporton RAD - Ultrasound Report [id number]#1.00CD: 127 Normal [facility] US renal BIon 09-30-2022 US renal BI [facility] [place] [address] Ultrasound Report Signed Patient: Yenny Felix MR#: [id number] [birth year] : 1945 Acct:[id number] Age/Sex: 77 / F ADM Date: 09/30/22 Loc: Room: Type: [facility] Attending Dr: Aron Hancock MD Ordering Provider: [...] findings. Impression dictated by: Jayesh Mark Jr., D.OAlma09/30/2022 1:48 PM Dictation Location: [place] [address] Tech: Saima Almaraz Transcribed By: RADHA 09/30/22 1348 Dictated By: Jayesh Mark Jr, DO 09/30/22 1345 Signed By: 09/30/22 1348 Normal [facility] Coding Summary.on 04-20-2022 Coding Summary. Normal [facility] Patient Educationon 04-19-20 Patient Education Normal [facility] Urology Office/Clinic Noteon 04-19-2022 Urology Office/Clinic Note Normal [facility] Comment on above: Result Comment: Elec tronically Signed By: STEPH RICE, Aron Davidson\.br\Date and Time Signed: 04/19/22 09:45 EST\.br\Electronically Co-Signed By: Yanni Dickens\.br\Date and Time Co-Signed: 04/19/22 09:43 EST Heart and Vascular Office/Cl inic Noteon 04-15-2022 Heart and Vascular Office/Clinic Note Normal [facility] Comment on above: Result Comment: Elec tronically Signed By: Lita RICE, Wilfred Calvo\.br\Date and Time Signed: 04/15/22 12:56 EST\.br\Electronically Co-Signed By: Anna Poon\.br\Date and Time Co-Signed: 04/11/22 15:48 EST Consent for Treatmenton 03-31 Consent for Treatment [id number]#1.00CD: 127 Normal [facility] Physician Orderon 04-11-2022 Physician Order [id number]#1.00CD: 127 Normal [facility] EMS Documentationon 04-05-20 EMS Documentation Normal [facility] Coding Summary.on 04-01-2022 Coding Summary. Normal [facility] C Blood Charcoalon Blood Culture Charcoal Normal [facility] Comment on above: Performed By: #### 1 [id number] ####[facility] [address] [place] [address] Blood Culture Charcoal Normal [facility] Comment on above: Performed By: #### 1 [id number] ####[facility] [address] [place] [address] Coding Queryon 03-30-2022 Coding Query Normal [facility] Auth for Release of Medical Recordson 03-28-2022 Auth for Release of Medical Records [id number]#1.00CD :127 Normal [facility] CHEMISTRYOrdered By: SYSTEM SYSTEM on 03-28-2022 Anion gap [Moles/Vol] 6 mmol/L Normal 6 - 16 mEq/L [facility] Remisol Chloride [Moles/Vol] 108 mmol/L Normal 101 - 1 11 mmol/L [facility] Remisol CO2 [Moles/Vol] 25 mmol/L Normal 21 - 31 mmol/L [facility] Remisol Potassium [Moles/Vol] 3.7 mmol/L Normal 3.5 - 5.3 mmol/L [facility] Remisol Sodium [Moles/Vol] 135 mmol/L Normal 135 - 145 mmol/L [facility] Remisol Discharge Instructionson Discharge Instructions [id number]#1.00CD :127 Normal [facility] Inpatient Clinical Summaryon 03-28-2022 Inpatient Clinical Summary Normal [facility] Inpatient Patient Summaryon 03-28-2022 Inpatient Patient Summary Normal [facility] Inpatient Patient Summary Normal [facility] Interdisciplinary Note - Pito e Manageron 03-28-2022 Interdisciplinary Note - Event Planning Manager Normal [facility] Comment on above: Result Comment: Elec tronically Signed By: Mirela Petersen\.br\Date and Time Signed: 03/28/22 13:34 EST Lyteson 03-28-2022 Anion gap [Moles/Vol] 6 mmol/L Normal 6-16 [facility] Comment on above: Performed By: #### 2 [id number] ####[facility] [address] [place] [address] Chloride [Moles/Vol] 108 mmol/L Normal 101-111 [facility] Comment on above: Performed By: #### 2 433924 ####[facility] [address] [place] [address] CO2 [Moles/Vol] 25 mmol/L Normal 21-31 [facility] Comment on above: Performed By: #### 2 365439 ####[facility] [address] [place] [address] Potassium [Moles/Vol] 3.7 mmol/L Normal 3.5-5.3 [facility] Comment on above: Performed By: #### 2 303401 ####[facility] [address] [place] [address] Sodium [Moles/Vol] 135 mmol/L Normal 135-145 [facility] Comment on above: Performed By: #### 2 810458 ####[facility] [address] [place] [address] Monitor Recordon 03-28-2022 Monitor Record [id number] [facility] [id number]#1.00CD :127 Normal [facility] Monitor Record [id number] [facility] [id number]#1.00CD :127 Normal [facility] Monitor Record [id number]#1.00CD :127 Normal [facility] Monitor Record [id number] [facility] [id number]#1.00CD :127 Normal [facility] BMPon 03-27-2022 Anion gap [Moles/Vol] 10 mmol/L Normal 6-16 [facility] Comment on above: Performed By: #### 2 723546, [id number] ####[place] [address] [place] [address] Calcium [Mass/Vol] 10.1 mg/dL Normal 8.9-11.1 [facility] Comment on above: Performed By: #### 2 637662, [id number] ####[place] [address] [place] [address] Chloride [Moles/Vol] 106 mmol/L Normal 101-111 [facility] Comment on above: Performed By: #### 2 799589, [id number] ####[facility] [address] [place] [address] CO2 [Moles/Vol] 24 mmol/L Normal 21-31 [facility] Comment on above: Performed By: #### 2 461452, [id number] ####[place] [address] [place] [address] Creatinine [Mass/Vol] 0.9 mg/dL Normal 0.5-1.3 [facility] Comment on above: Performed By: #### 2 038029, [id number] ####[place] [address] [place] [address] Glucose [Mass/Vol] 102 mg/dL Normal 55-199 [facility] Comment on above: Result Comment: If t his glucose result represents a fasting glucose, interpretation should refer to the following reference range: 55-99 mg/dL Performed By: #### 2 113753, [id number] ####[facility] [address] [place] [address] Potassium [Moles/Vol] 3.7 mmol/L Normal 3.5-5.3 [facility] Comment on above: Performed By: #### 2 838052, [id number] ####[facility] [address] [place] [address] Sodium [Moles/Vol] 136 mmol/L Normal 135-145 [facility] Comment on above: Performed By: #### 2 024063, [id number] ####[facility] [address] [place] [address] Urea nitrogen [Mass/Vol] 18 mg/dL Normal 5-21 [facility] Comment on above: Performed By: #### 2 787518, [id number] ####[facility] [address] [place] [address] Urea nitrogen/Creatinine [Mass ratio] 20 No Units Normal 10-20 [facility] Comment on above: Performed By: #### 2 194435, [id number] ####[facility] [address] [place] [address] C Sputumon 03-27-2022 Bacteria identified Respiratory culture Nom (Sput) Normal [facility] Comment on above: Performed By: #### 2 600516 ####[facility] [address] [place] [address] CHEMISTRYOrdered By: Kamron blacn on 03-27-2022 Vancomycin trough [Moles/Vol] microgram/mL Low 10 - 20 mcg/mL [facility] Comment on above: Result Comment: Resu lts verified by repeat analysis CHEMISTRYOrdered By: SYSTEM SYSTEM on 03-27-2022 Anion gap [Moles/Vol] 10 mmol/L Normal 6 - 16 mEq/L [facility] Remisol Calcium [Mass/Vol] 10.1 mg/dL Normal 8.9 - 11. 1 mg/dL [facility] Remisol Chloride [Moles/Vol] 106 mmol/L Normal 101 - 1 11 mmol/L [facility] Remisol CO2 [Moles/Vol] 24 mmol/L Normal 21 - 31 mmol/L [facility] Remisol Creatinine [Mass/Vol] 0.9 mg/dL Normal 0.5 - 1.3 mg/dL [facility] Remisol GFR/1.73 sq M.predicted among blacks MDRD (S/P/Bld) [Vol rate/Area] mL/min/1.73 m2 Normal >=59mL/min/ 1.73 m2 [facility] Chem S GFR/1.73 sq M.predicted among non-blacks MDRD (S/P/Bld) [Vol rate/Area] mL/min/1.73 m2 Normal >=59mL/min/ 1.73 m2 [facility] Chem S Glucose [Mass/Vol] 102 mg/dL Normal 55 - 199 mg/dL [facility] Remisol Potassium [Moles/Vol] 3.7 mmol/L Normal 3.5 - 5.3 mmol/L [facility] Remisol Sodium [Moles/Vol] 136 mmol/L Normal 135 - 145 mmol/L [facility] Remisol Urea nitrogen [Mass/Vol] 18 mg/dL Normal 5 - 21 mg/dL [facility] Remisol Urea nitrogen/Creatinine [Mass ratio] 20 mg/mg Normal 10 - 20 [facility] Remisol Monitor Recordon 03-27-2022 Monitor Record [id number]#1.00CD :127 Normal [facility] Monitor Record [id number]#1.00CD :127 Normal [facility] Monitor Record [id number]#1.00CD :127 Normal [facility] Patient Education - Texton 1 05-27-2021 Patient Education - Text Normal [facility] Progress Note-Physicianon Progress Note-Physician Normal [facility] Comment on above: Result Comment: Elec tronically Signed By: Carol ORTIZ\.br\Date and Time Signed: 03/27/22 08:04 EST\.br\Electronically Co-Signed By: Saran Dodge MD\.br\Date and Time Co-Signed: 03/27/22 09:21 EST Vanco Troughon 03-27-2022 VANCOMYCIN <4 Low 10-20 [facility] Comment on above: Result Comment: Resu lts verified by repeat analysis Performed By: #### 2 [id number] ####[facility] [address] [place] [address] eGFRon 03-27-2022 GFR/1.73 sq M.predicted among blacks MDRD (S/P/Bld) [Vol rate/Area] mL/min/{1.73_m2} Normal >=59 [facility] Comment on above: Order Comment: Order added by Discern Expert. Result Comment: eGFR is race adjusted. AA=. Performed By: #### 2 794508, [id number] ####[facility] [address] [place] [address] GFR/1.73 sq M.predicted among non-blacks MDRD (S/P/Bld) [Vol rate/Area] mL/min/{1.73_m2} Normal >=59 [facility] Comment on above: Order Comment: Order added by Discern Expert. Result Comment: Steam Trap Worker quan kidney disease could be indicated at eGFR's of less than 60 mL/min/1.73m2. Kidney failure is indicated at less than 15 mL/min/1.73m2. Performed By: #### 2 007740, [id number] ####[facility] [address] [place] [address] BMPon 03-26-2022 Anion gap [Moles/Vol] 8 mmol/L Normal 6-16 [facility] Comment on above: Performed By: #### 2 100983, [id number], 9187249, [id number] ####[facility] [address] [place] [address] Calcium [Mass/Vol] 9.8 mg/dL Normal 8.9-11.1 [facility] Comment on above: Performed By: #### 2 544331, 15390275, 9700851, 7951922 ####[facility] [address] [place] [address] Chloride [Moles/Vol] 108 mmol/L Normal 101-111 [facility] Comment on above: Performed By: #### 2 812540, 10626088, 1715486, 9092778 ####[facility] [address] [place] [address] CO2 [Moles/Vol] 21 mmol/L Normal 21-31 [facility] Comment on above: Performed By: #### 2 333475, 79150962, 4647436, 4492995 ####[facility] [address] [place] [address] Creatinine [Mass/Vol] 1.0 mg/dL Normal 0.5-1.3 [facility] Comment on above: Performed By: #### 2 032264, 54141217, 7220117, 6761077 ####[facility] [address] [place] [address] Glucose [Mass/Vol] 111 mg/dL Normal 55-199 [facility] Comment on above: Result Comment: If t his glucose result represents a fasting glucose, interpretation should refer to the following reference range: 55-99 mg/dL Performed By: #### 2 455162, 22973213, 6402449, 1097902 ####[facility] [address] [place] [address] Potassium [Moles/Vol] 3.2 mmol/L Low 3.5-5.3 [facility] Comment on above: Performed By: #### 2 577208, 18449235, 6225871, 4743892 ####[facility] [address] [place] [address] Sodium [Moles/Vol] 134 mmol/L Low 135-145 [facility] Comment on above: Performed By: #### 2 237270, 73669650, 5494527, 2786289 ####[facility] [address] [place] [address] Urea nitrogen [Mass/Vol] 20 mg/dL Normal 5-21 [facility] Comment on above: Performed By: #### 2 653670, 61302626, 2170504, 4357536 ####[facility] [address] [place] [address] Urea nitrogen/Creatinine [Mass ratio] 20 No Units Normal 10-20 [facility] Comment on above: Performed By: #### 2 666829, 22977972, 1271458, 9614543 ####[facility] [address] [place] [address] CHEMISTRYOrdered By: SYSTEM SYSTEM on 03-26-2022 Anion gap [Moles/Vol] 8 mmol/L Normal 6 - 16 mEq/L [facility] Remisol Calcium [Mass/Vol] 9.8 mg/dL Normal 8.9 - 11. 1 mg/dL [facility] Chloride [Moles/Vol] 108 mmol/L Normal 101 - 1 11 mmol/L [facility] CO2 [Moles/Vol] 21 mmol/L Normal 21 - 31 mmol/L [facility] Creatinine [Mass/Vol] 1.0 mg/dL Normal 0.5 - 1.3 mg/dL [facility] Remisol GFR/1.73 sq M.predicted among blacks MDRD (S/P/Bld) [Vol rate/Area] mL/min/1.73 m2 Normal >=59mL/min/ 1.73 m2 [facility] Chem S GFR/1.73 sq M.predicted among non-blacks MDRD (S/P/Bld) [Vol rate/Area] 54 mL/min/1.73 m2 Low >=59mL/min/ 1.73 m2 [facility] Chem S Glucose [Mass/Vol] 111 mg/dL Normal 55 - 199 mg/dL [facility] Magnesium [Mass/Vol] 1.5 mg/dL Normal 1.3 - 2 .4 mg/dL [facility] Potassium [Moles/Vol] 3.2 mmol/L Low 3.5 - 5.3 mmol/L [facility] Remisol Sodium [Moles/Vol] 134 mmol/L Low 135 - 145 mmol/L [facility] TSH Qn 2.52 m[IU]/L Normal 0.34 - 5.60 mcIU/mL [facility] Urea nitrogen [Mass/Vol] 20 mg/dL Normal 5 - 21 mg/dL [facility] Urea nitrogen/Creatinine [Mass ratio] 20 mg/mg Normal 10 - 20 [facility] EMS Documentationon 03-26-20 EMS Documentation Normal [facility] EMS Documentation Normal [facility] Magnesiumon 03-26-2022 Magnesium [Mass/Vol] 1.5 mg/dL Normal 1.3-2.4 [facility] Comment on above: Performed By: #### 2 863772, [id number], 6757823, 4910729 ####[facility] [address] [place] [address] Monitor Recordon 03-26-2022 Monitor Record [id number]#1.00CD :127 Normal [facility] Monitor Record [id number]#1.00CD :127 Normal [facility] Progress Note-Physicianon Progress Note-Physician Normal [facility] Comment on above: Result Comment: Elec tronically Signed By: Carol ORTIZ\.br\Date and Time Signed: 03/26/22 09:07 EST\.br\Electronically Co-Signed By: Dar RICE, Saran Gifford\.br\Date and Time Co-Signed: 03/26/22 09:48 EST Sodiumon 03-26-2022 Sodium [Moles/Vol] 135 mmol/L Normal 135-145 [facility] Comment on above: Performed By: #### 2 [id number] ####[facility] [address] [place] [address] TSHon 03-26-2022 TSH Qn 2.52 m[IU]/L Normal 0.34-5.60 [facility] Comment on above: Performed By: #### 2 385930, 07245077, 6842061, 1817220 ####[facility] [address] [place] [address] eGFRon 03-26-2022 GFR/1.73 sq M.predicted among blacks MDRD (S/P/Bld) [Vol rate/Area] mL/min/{1.73_m2} Normal >=59 [facility] Comment on above: Order Comment: Order added by Discern Expert. Result Comment: eGFR is race adjusted. AA=. Performed By: #### 2 133585, [id number], 9621167, 2643449 ####[facility] [address] [place] [address] GFR/1.73 sq M.predicted among non-blacks MDRD (S/P/Bld) [Vol rate/Area] 54 mL/min/1.73 m2 Low >=59 [facility] Comment on above: Order Comment: Order added by Discern Expert. Result Comment: Steam Trap Worker quan kidney disease could be indicated at eGFR's of less than 60 mL/min/1.73m2. Kidney failure is indicated at less than 15 mL/min/1.73m2. Performed By: #### 2 696671, 35893663, 1023159, 0500059 ####[facility] [address] [place] [address] BMPon 03-25-2022 Anion gap [Moles/Vol] 11 mmol/L Normal 6-16 [facility] Comment on above: Performed By: #### 2 234540, [id number] ####[facility] [address] [place] [address] Calcium [Mass/Vol] 9.7 mg/dL Normal 8.9-11.1 [facility] Comment on above: Performed By: #### 2 431903, 59473594 ####[facility] [address] [place] [address] Chloride [Moles/Vol] 104 mmol/L Normal 101-111 [facility] Comment on above: Performed By: #### 2 672990, 21205197 ####[facility] [address] [place] [address] CO2 [Moles/Vol] 22 mmol/L Normal 21-31 [facility] Comment on above: Performed By: #### 2 803389, 97758036 ####[facility] [address] [place] [address] Creatinine [Mass/Vol] 0.9 mg/dL Normal 0.5-1.3 [facility] Comment on above: Performed By: #### 2 378868, 83418765 ####[facility] [address] [place] [address] Glucose [Mass/Vol] 98 mg/dL Normal 55-199 [facility] Comment on above: Result Comment: If t his glucose result represents a fasting glucose, interpretation should refer to the following reference range: 55-99 mg/dL Performed By: #### 2 666370, 21002258 ####[facility] [address] [place] [address] Potassium [Moles/Vol] 3.7 mmol/L Normal 3.5-5.3 [facility] Comment on above: Performed By: #### 2 769813, 92194249 ####[facility] [address] [place] [address] Sodium [Moles/Vol] 133 mmol/L Low 135-145 [facility] Comment on above: Performed By: #### 2 138951, 40367836 ####[facility] [address] [place] [address] Urea nitrogen [Mass/Vol] 20 mg/dL Normal 5-21 [facility] Comment on above: Performed By: #### 2 077315, 41523417 ####[facility] [address] [place] [address] Urea nitrogen/Creatinine [Mass ratio] 22 No Units High 10-20 [facility] Comment on above: Performed By: #### 2 289607, 87020887 ####[facility] [address] [place] [address] C Blood Charcoalon Blood Culture Charcoal Normal [facility] Comment on above: Performed By: #### 1 0450811 ####[facility] [address] [place] [address] Blood Culture Charcoal Normal [facility] Comment on above: Performed By: #### 1 1343760 ####[facility] [address] [place] [address] C Urineon 03-25-2022 Bacteria identified Cx Nom (U) Normal [facility] Comment on above: Performed By: #### 2 932432, 41070301 ####[facility] [address] [place] [address] CHEMISTRYOrdered By: SYSTEM SYSTEM on 03-25-2022 Calcium [Mass/Vol] 9.7 mg/dL Normal 8.9 - 11. 1 mg/dL [facility] Remisol Creatinine [Mass/Vol] 0.9 mg/dL Normal 0.5 - 1.3 mg/dL [facility] Remisol GFR/1.73 sq M.predicted among blacks MDRD (S/P/Bld) [Vol rate/Area] mL/min/1.73 m2 Normal >=59mL/min/ 1.73 m2 [facility] Chem S GFR/1.73 sq M.predicted among non-blacks MDRD (S/P/Bld) [Vol rate/Area] mL/min/1.73 m2 Normal >=59mL/min/ 1.73 m2 [facility] Chem S Glucose [Mass/Vol] 98 mg/dL Normal 55 - 199 mg/dL [facility] Remisol Urea nitrogen [Mass/Vol] 20 mg/dL Normal 5 - 21 mg/dL [facility] Remisol Urea nitrogen/Creatinine [Mass ratio] 22 mg/mg High 10 - 20 [facility] Remisol CT Abdomen/Pelvis w/o Contra ston 03-25-2022 CT Abdomen/Pelvis w/o Contrast Normal [facility] CT Chest w/o Contraston 03-02 CT Chest w/o Contrast Normal [facility] Interdisciplinary Note - Pito e Manageron 03-25-2022 Interdisciplinary Note - Event Planning Manager Normal [facility] Comment on above: Result Comment: Elec tronically Signed By: Mirela Petersen\.br\Date and Time Signed: 03/25/22 12:34 EST Laboratory - Microbiology an d Antimicrobial susceptibilityOrdered By: Eunice Renee on 03-25-2022 Bacteria identified Respiratory culture Nom (Sput) 1+ Madeleine albicans Presumptive Scant growth of Normal upper respiratory yashira isolated [facility] Monitor Recordon 03-25-2022 Monitor Record [id number]#[id number] :127 Normal [facility] No Panel InformationOrdered By: Eunice Renee on 03-25-2022 GS Rare epithelial cell s No organisms seen. [facility] Outside Recordson 03-25-2022 Outside Records [id number]#1.00CD :127 Normal [facility] Progress Note-Physicianon Progress Note-Physician Normal [facility] Comment on above: Result Comment: Elec tronically Signed By: Evan Stovall MD\.br\Date and Time Signed: 03/25/22 15:46 EST Progress Note-Physician Normal [facility] Comment on above: Result Comment: Elec tronically Signed By: Carol ORTIZ\.br\Date and Time Signed: 03/25/22 10:27 EST\.br\Electronically Co-Signed By: Dar RICE, Saran Gifford\.br\Date and Time Co-Signed: 03/25/22 11:15 EST Progress Note-Physician Normal [facility] Comment on above: Result Comment: Elec tronically Signed By: Balbina RICE, Fahad\.br\Date and Time Signed: 03/25/22 07:27 EST Sodiumon 03-25-2022 Sodium [Moles/Vol] 135 mmol/L Normal 135-145 [facility] Comment on above: Performed By: #### 2 034986 ####[facility] [address] [place] [address] Sodium [Moles/Vol] 135 mmol/L Normal 135-145 [facility] Comment on above: Performed By: #### 2 855929 ####[facility] [address] [place] [address] Sodium [Moles/Vol] 132 mmol/L Low 135-145 [facility] Comment on above: Performed By: #### 2 578196 ####[facility] [address] [place] [address] U Legi Agon 03-25-2022 L. pneumophila 1 Ag IA Ql (U) Negative Invalid Interpretation Code Negative [facility] Comment on above: Result Comment: Pres umptive negative for L. pneumophila serogroup 1 antigen in urine,suggesting no recent or current infection. Legionnaires' diseasecannot be ruled out since other serogroups and species may also causedisease.Performed at: [facility] [id number] MD Gueavra Lewis Performed By: #### 2 183466 ####[facility] [address] [place] [address] US Renalon 03-25-2022 US Renal Normal [facility] eGFRon 03-25-2022 GFR/1.73 sq M.predicted among blacks MDRD (S/P/Bld) [Vol rate/Area] mL/min/{1.73_m2} Normal >=59 [facility] Comment on above: Order Comment: Order added by Discern Expert. Result Comment: eGFR is race adjusted. AA=. Performed By: #### 2 621536, 55163865 ####[facility] [address] [place] [address] GFR/1.73 sq M.predicted among non-blacks MDRD (S/P/Bld) [Vol rate/Area] mL/min/{1.73_m2} Normal >=59 [facility] Comment on above: Order Comment: Order added by Discern Expert. Result Comment: Steam Trap Worker quan kidney disease could be indicated at eGFR's of less than 60 mL/min/1.73m2. Kidney failure is indicated at less than 15 mL/min/1.73m2. Performed By: #### 2 417535, 86708872 ####[facility] [address] [place] [address] Auto Diffon 03-24-2022 Basophils/100 WBC (Bld) 0.3 % Normal 0.0-2.0 [facility] Comment on above: Order Comment: Order Added by Discern Expert. Performed By: #### 2 556217, 61503951, 7111576, 9119626 ####[place] [place] [address] Basophils/Leukocytes Auto (Bld) [Pure # fraction] 0.0 E9/L Normal 0.0-0.2 [facility] Comment on above: Order Comment: Order Added by Discern Expert. Performed By: #### 2 204151, 24802523, 4756115, 6026764 ####[address] [address] Eosinophils/100 WBC (Bld) 0.5 % Normal 0.0-8.0 [facility] Comment on above: Order Comment: Order Added by Discern Expert. Performed By: #### 2 301582, 18770350, 1076733, 3536137 ####[address] [address] Eosinophils/Leukocytes Auto (Bld) [Pure # fraction] 0.0 E9/L Normal 0.0-0.5 [facility] Comment on above: Order Comment: Order Added by Discern Expert. Performed By: #### 2 432639, 11344787, 5736513, 5141798 ####[address] [address] Lymphocytes/100 WBC (Bld) 5.3 % Low 14.0-50.0 [facility] Comment on above: Order Comment: Order Added by Discern Expert. Performed By: #### 2 105759, 15691159, 8482485, 0219046 ####[address] [place] [address] Lymphocytes/Leukocytes Auto (Bld) [Pure # fraction] 0.5 E9/L Low 1.0-4.0 [facility] Comment on above: Order Comment: Order Added by Discern Expert. Performed By: #### 2 932197, 39400001, 5761335, 2956414 ####[facility] [address] [place] [address] Monocytes/100 WBC (Bld) 8.5 % Normal 4.0-14.0 [facility] Comment on above: Order Comment: Order Added by Discern Expert. Performed By: #### 2 764388, 02051717, 2341654, 3327199 ####[facility] [address] [place] [address] Monocytes/Leukocytes Auto (Bld) [Pure # fraction] 0.8 E9/L Normal 0.2-1.0 [facility] Comment on above: Order Comment: Order Added by Robert Expert. Performed By: #### 2 565052, 36455021, 4549030, 8501328 ####[facility] [address] [place] [address] Neutrophils/100 WBC (Bld) 85.4 % High 36.0-75.0 [facility] Comment on above: Order Comment: Order Added by Robert Expert. Performed By: #### 2 069208, 03199908, 6576379, 8450131 ####[facility] [address] [place] [address] Neutrophils/Leukocytes Auto (Bld) [Pure # fraction] 8.5 E9/L High 2.0-7.5 [facility] Comment on above: Order Comment: Order Added by Discern Expert. Performed By: #### 2 719193, 15181902, 3395594, 6228145 ####[facility] [address] [place] [address] BMPon 03-24-2022 Anion gap [Moles/Vol] 9 mmol/L Normal 6-16 [facility] Comment on above: Performed By: #### 2 740856, 32234395, 8449722, 8033185 ####[facility] [address] [place] [address] Calcium [Mass/Vol] 9.2 mg/dL Normal 8.9-11.1 [facility] Comment on above: Performed By: #### 2 607971, 61936106, 2239148, 3090200 ####[facility] [address] [place] [address] Chloride [Moles/Vol] 106 mmol/L Normal 101-111 [facility] Comment on above: Performed By: #### 2 920644, 65477583, 7789826, 5751001 ####[facility] [address] [place] [address] CO2 [Moles/Vol] 21 mmol/L Normal 21-31 [facility] Comment on above: Performed By: #### 2 893619, 78969144, 4623006, 3798594 ####[facility] [address] [place] [address] Creatinine [Mass/Vol] 1.0 mg/dL Normal 0.5-1.3 [facility] Comment on above: Performed By: #### 2 073649, 09586222, 9049622, 3578770 ####[facility] [address] [place] [address] Glucose [Mass/Vol] 95 mg/dL Normal 55-199 [facility] Comment on above: Result Comment: If t his glucose result represents a fasting glucose, interpretation should refer to the following reference range: 55-99 mg/dL Performed By: #### 2 645478, 85592225, 1521323, 4356497 ####[facility] [address] [place] [address] Potassium [Moles/Vol] 3.9 mmol/L Normal 3.5-5.3 [facility] Comment on above: Performed By: #### 2 567251, 16879502, 7538447, 2460036 ####[facility] [address] [place] [address] Sodium [Moles/Vol] 132 mmol/L Low 135-145 [facility] Comment on above: Performed By: #### 2 707395, 66554656, 7914235, 8179610 ####[facility] [address] [place] [address] Urea nitrogen [Mass/Vol] 15 mg/dL Normal 5-21 [facility] Comment on above: Performed By: #### 2 888012, 83614674, 6089703, 5543730 ####[facility] [address] [place] [address] Urea nitrogen/Creatinine [Mass ratio] 15 No Units Normal 10-20 [facility] Comment on above: Performed By: #### 2 097257, 72438890, 5688717, 5464307 ####[address] [place] [address] CBC w/ Auto Diffon Erythrocyte distribution width (RBC) [Ratio] 13.6 % Normal 10.9-14.2 [facility] Comment on above: Performed By: #### 2 574212, 79939108, 4630656, 7321024 ####[facility] [address] [place] [address] Hematocrit (Bld) [Volume fraction] 35.8 % Normal 34.0-46.0 [facility] Comment on above: Performed By: #### 2 139774, 05500519, 4312120, 8993943 ####[address] [place] [address] Hemoglobin (Bld) [Mass/Vol] 12.2 g/dL Normal 12.0-16.0 [facility] Comment on above: Performed By: #### 2 255708, 18289702, 6264628, 7345764 ####[facility] [address] [place] [address] MCH (RBC) [Entitic mass] 30.3 pg Normal 27.0-34.0 [facility] Comment on above: Performed By: #### 2 632586, 70656269, 1914190, 6291361 ####[facility] [address] [place] [address] MCHC (RBC) [Mass/Vol] 34.1 g/dL Normal 31.4-36.0 [facility] Comment on above: Performed By: #### 2 375245, 02905811, 5063961, 9554089 ####[address] [place] [address] MCV (RBC) [Entitic vol] 89.0 fL Normal 80.0-100.0 [facility] Comment on above: Performed By: #### 2 743308, 57728800, 2812288, 2461596 ####[place] [address] Platelet mean volume (Bld) [Entitic vol] 8.1 fL Normal 6.4-10.8 [facility] Comment on above: Performed By: #### 2 713615, 86162161, 3454826, 8233111 ####[place] [address] Platelets (Bld) [#/Vol] 180.0 E9/L Normal 150.0-500.0 [facility] Comment on above: Performed By: #### 2 521594, 90290362, 7582014, 5249375 ####[place] [address] RBC (Bld) [#/Vol] 4.0 E12/L Low 4.3-5.9 [facility] Comment on above: Performed By: #### 2 200592, 38563941, 3625014, 3192102 ####[place] [address] WBC corrected for nucl RBC Auto (Bld) [#/Vol] 9.9 E9/L Normal 4.0-11.0 [facility] Comment on above: Performed By: #### 2 240955, 74612525, 0683275, 5894690 ####[place] [address] HEMATOLOGYOrdered By: SYSTEM SYSTEM on 03-24-2022 Basophils/100 [...] 8.1 fL Normal 6.4 - 10.8 fL [facility] HemeAutoSS Platelets (Bld) [#/Vol] 180.0 E9/L Normal 150. 0 - 500.0 E9/L [facility] HemeAutoSS RBC (Bld) [#/Vol] 4.0 E12/L Low 4.3 - 5.9 E12/L [facility] HemeAutoSS WBC corrected for nucl RBC Auto (Bld) [#/Vol] 9.9 E9/L Normal 4.0 - 11.0 E9/L [facility] HemeAutoSS No Panel InformationOrdered By: RUKHSANAPROCESSSERGEORGE MICROBIOLOGY on 03-24-2022 Blood Culture Charcoal No growth at 4 da ys. Final to follow at 7 days. [facility] Progress Note-Physicianon Progress Note-Physician Normal [facility] Comment on above: Result Comment: Elec tronically Signed By: Lita RICE, Wilfred Calvo\.br\Date and Time Signed: 03/24/22 10:36 EST Sodiumon 03-24-2022 Sodium [Moles/Vol] 133 mmol/L Low 135-145 [facility] Comment on above: Performed By: #### 2 477222 ####[facility] [address] [place] [address] eGFRon 03-24-2022 GFR/1.73 sq M.predicted among blacks MDRD (S/P/Bld) [Vol rate/Area] mL/min/{1.73_m2} Normal >=59 [facility] Comment on above: Order Comment: Order added by Discern Expert. Result Comment: eGFR is race adjusted. AA=. Performed By: #### 2 784444, 16670721, 6651971, 8212545 ####[facility] [address] [place] [address] GFR/1.73 sq M.predicted among non-blacks MDRD (S/P/Bld) [Vol rate/Area] 54 mL/min/1.73 m2 Low >=59 [facility] Comment on above: Order Comment: Order added by Discern Expert. Result Comment: Steam Trap Worker quan kidney disease could be indicated at eGFR's of less than 60 mL/min/1.73m2. Kidney failure is indicated at less than 15 mL/min/1.73m2. Performed By: #### 2 546677, 33281845, 1266428, 2960961 ####[facility] [address] [place] [address] Auto Diffon 03-23-2022 Basophils/100 WBC (Bld) 0.9 % Normal 0.0-2.0 [facility] Comment on above: Order Comment: Order Added by Discern Expert. Performed By: #### 2 304804, 63817880, 9028271, 6908545233, 9895916, 5074556 ####[address] [place] [address] Basophils/Leukocytes Auto (Bld) [Pure # fraction] 0.1 E9/L Normal 0.0-0.2 [facility] Comment on above: Order Comment: Order Added by Discern Expert. Performed By: #### 2 001256, 97418442, 1839246, 4030981858, 1494518, 7944589 ####[address] [place] [address] Eosinophils/100 WBC (Bld) 0.1 % Normal 0.0-8.0 [facility] Comment on above: Order Comment: Order Added by Discern Expert. Performed By: #### 2 382034, 34030433, 1626516, 5125006303, 9237228, 4220544 ####[facility] [address] [place] [address] Eosinophils/Leukocytes Auto (Bld) [Pure # fraction] 0.0 E9/L Normal 0.0-0.5 [facility] Comment on above: Order Comment: Order Added by Discern Expert. Performed By: #### 2 965938, 12154716, 6825682, 7636568127, 9001405, 9122484 ####[address] [place] [address] Lymphocytes/100 WBC (Bld) 4.7 % Low 14.0-50.0 [facility] Comment on above: Order Comment: Order Added by Discern Expert. Performed By: #### 2 844935, 15658211, 8354307, 2428643376, 8318618, 3600460 ####[facility] [address] [place] [address] Lymphocytes/Leukocytes Auto (Bld) [Pure # fraction] 0.4 E9/L Low 1.0-4.0 [facility] Comment on above: Order Comment: Order Added by Discern Expert. Performed By: #### 2 606290, 74231433, 0045094, 1487233526, 6575475, 1896503 ####[address] [place] [address] Monocytes/100 WBC (Bld) 7.2 % Normal 4.0-14.0 [facility] Comment on above: Order Comment: Order Added by Robert Expert. Performed By: #### 2 700638, 52714520, 7403676, 2703451839, 5721469, 3466732 ####[facility] [address] [place] [address] Monocytes/Leukocytes Auto (Bld) [Pure # fraction] 0.6 E9/L Normal 0.2-1.0 [facility] Comment on above: Order Comment: Order Added by Robert Expert. Performed By: #### 2 763680, 36617493, 4641744, 9890719186, 2513877, 1356086 ####[facility] [address] [place] [address] Neutrophils/100 WBC (Bld) 87.1 % High 36.0-75.0 [facility] Comment on above: Order Comment: Order Added by Robert Expert. Performed By: #### 2 449786, 34798019, 8570637, 5853584685, 4274440, 0286169 ####[facility] [address] [place] [address] Neutrophils/Leukocytes Auto (Bld) [Pure # fraction] 7.0 E9/L Normal 2.0-7.5 [facility] Comment on above: Order Comment: Order Added by Robert Expert. Performed By: #### 2 646078, 81136124, 2979584, 7102167726, 1922095, 6306054 ####[facility] [address] [place] [address] Basophils/100 WBC (Bld) 0.5 % Normal 0.0-2.0 [facility] Comment on above: Order Comment: Order Added by Discern Expert. Performed By: #### 2 403999, 4767584, 29931088, 6353738, 24187446, 1416098, 1714062 ####[facility] [address] [place] [address] Basophils/Leukocytes Auto (Bld) [Pure # fraction] 0.0 E9/L Normal 0.0-0.2 [facility] Comment on above: Order Comment: Order Added by Robert Expert. Performed By: #### 2 942588, 0933426, 23368248, 2243315, 78228742, 5325443, 4694054 ####[facility] [address] [place] [address] Eosinophils/100 WBC (Bld) 0.3 % Normal 0.0-8.0 [facility] Comment on above: Order Comment: Order Added by Robert Expert. Performed By: #### 2 847943, 4550112, 49213532, 4087041, 48285166, 0350522, 3226352 ####[facility] [address] [place] [address] Eosinophils/Leukocytes Auto (Bld) [Pure # fraction] 0.0 E9/L Normal 0.0-0.5 [facility] Comment on above: Order Comment: Order Added by Robert Expert. Performed By: #### 2 950352, 4351372, 62912824, 4156483, 80855643, 5666862, 4114951 ####[facility] [address] [place] [address] Lymphocytes/100 WBC (Bld) 3.6 % Low 14.0-50.0 [facility] Comment on above: Order Comment: Order Added by Discern Expert. Performed By: #### 2 581320, 7745485, 21354646, 4695978, 84904306, 2675904, 1474656 ####[facility] [address] [place] [address] Lymphocytes/Leukocytes Auto (Bld) [Pure # fraction] 0.3 E9/L Low 1.0-4.0 [facility] Comment on above: Order Comment: Order Added by Discern Expert. Performed By: #### 2 855401, 2091629, 46293068, 0098651, 58969593, 5345114, 3900528 ####[facility] [address] [place] [address] Monocytes/100 WBC (Bld) 6.2 % Normal 4.0-14.0 [facility] Comment on above: Order Comment: Order Added by Robert Expert. Performed By: #### 2 960302, 1469386, 28199722, 6320055, 78668321, 0654936, 0749160 ####[facility] [address] [place] [address] Monocytes/Leukocytes Auto (Bld) [Pure # fraction] 0.5 E9/L Normal 0.2-1.0 [facility] Comment on above: Order Comment: Order Added by Discern Expert. Performed By: #### 2 228850, 4322181, 54338002, 9231158, 69935337, 6609034, 7527742 ####[facility] [address] [place] [address] Neutrophils/100 WBC (Bld) 89.4 % High 36.0-75.0 [facility] Comment on above: Order Comment: Order Added by Discern Expert. Performed By: #### 2 456362, 1931073, 07514242, 2474446, 06958147, 0055348, 6476224 ####[facility] [address] [place] [address] Neutrophils/Leukocytes Auto (Bld) [Pure # fraction] 7.9 E9/L High 2.0-7.5 [facility] Comment on above: Order Comment: Order Added by Discern Expert. Performed By: #### 2 657203, 1054324, 01251092, 6903485, 59098800, 9117004, 1166764 ####[facility] [address] [place] [address] BMPon 03-23-2022 Anion gap [Moles/Vol] 7 mmol/L Normal 6-16 [facility] Comment on above: Performed By: #### 2 269215, 23526372, 3483607, 7298924435, 2194768, 3891210 ####[facility] [address] [place] [address] Calcium [Mass/Vol] 9.0 mg/dL Normal 8.9-11.1 [facility] Comment on above: Performed By: #### 2 246737, 32330161, 8137596, [id number], 7315997, 7947022 ####[facility] [address] [place] [place] [address] Chloride [Moles/Vol] 105 mmol/L Normal 101-111 [facility] Comment on above: Performed By: #### 2 916023, 07458955, 9398472, 7972815625, 9388069, 6070703 ####[facility] [address] [place] [address] CO2 [Moles/Vol] 21 mmol/L Normal 21-31 [facility] Comment on above: Performed By: #### 2 280732, 00899099, 3532983, 5587991161, 0534420, 6044868 ####[facility] [address] [place] [address] Creatinine [Mass/Vol] 1.0 mg/dL Normal 0.5-1.3 [facility] Comment on above: Performed By: #### 2 461905, 85692459, 2333493, 9687550408, 0466470, 2750240 ####[facility] [address] [place] [address] Glucose [Mass/Vol] 100 mg/dL Normal 55-199 [facility] Comment on above: Result Comment: If t his glucose result represents a fasting glucose, interpretation should refer to the following reference range: 55-99 mg/dL Performed By: #### 2 005073, 46138276, 6672853, 9688732296, 5981021, 7556857 ####[facility] [address] [place] [address] Potassium [Moles/Vol] 3.7 mmol/L Normal 3.5-5.3 [facility] Comment on above: Performed By: #### 2 802709, 96881656, 8599897, 6701879047, 7272852, 5368650 ####[facility] [address] [place] [address] Sodium [Moles/Vol] 129 mmol/L Low 135-145 [facility] Comment on above: Performed By: #### 2 044959, 50767749, 6149277, 7406244182, 1311447, 4856565 ####[facility] [address] [place] [address] Urea nitrogen [Mass/Vol] 15 mg/dL Normal 5-21 [facility] Comment on above: Performed By: #### 2 868453, 31964242, 0354254, 4957366604, 0990826, 3394442 ####[facility] [address] [place] [address] Urea nitrogen/Creatinine [Mass ratio] 15 No Units Normal 10-20 [facility] Comment on above: Performed By: #### 2 556303, 26915095, 1260003, 2669842673, 7758545, 6667532 ####[facility] [address] [place] [address] CBC w/ Auto Diffon Erythrocyte distribution width (RBC) [Ratio] 13.8 % Normal 10.9-14.2 [facility] Comment on above: Performed By: #### 2 374779, 99380637, 8794473, 6602958382, 9050428, 3210706 ####[address] [place] [address] Hematocrit (Bld) [Volume fraction] 36.5 % Normal 34.0-46.0 [facility] Comment on above: Performed By: #### 2 865491, 18170394, 0379433, 9699129559, 7393705, 2702351 ####[address] [place] [address] Hemoglobin (Bld) [Mass/Vol] 12.5 g/dL Normal 12.0-16.0 [facility] Comment on above: Performed By: #### 2 948511, 45752986, 8950104, 3509237548, 2806752, 0638069 ####[address] [address] MCH (RBC) [Entitic mass] 29.7 pg Normal 27.0-34.0 [facility] Comment on above: Performed By: #### 2 428193, 98503173, 4721092, 2061275226, 2089383, 3651061 ####[address] [address] MCHC (RBC) [Mass/Vol] 34.2 g/dL Normal 31.4-36.0 [facility] Comment on above: Performed By: #### 2 442480, 66810571, 1013670, 0040059696, 3327952, 9789125 ####[address] [place] [address] MCV (RBC) [Entitic vol] 86.7 fL Normal 80.0-100.0 [facility] Comment on above: Performed By: #### 2 369032, 60967598, 2659161, 5425049040, 6694656, 2609050 ####[address] [place] [address] Platelet mean volume (Bld) [Entitic vol] 7.9 fL Normal 6.4-10.8 [facility] Comment on above: Performed By: #### 2 021497, 32607099, 4237221, 6168604292, 5188782, 6473025 ####[facility] [address] [place] [address] Platelets (Bld) [#/Vol] 193.0 E9/L Normal 150.0-500.0 [facility] Comment on above: Performed By: #### 2 290120, 65246026, 6497026, 7698504115, 7947893, 8969518 ####[address] [place] [address] RBC (Bld) [#/Vol] 4.2 E12/L Low 4.3-5.9 [facility] Comment on above: Performed By: #### 2 334984, 70121080, 2125070, 4814367541, 5024329, 4738925 ####[address] [address] WBC corrected for nucl RBC Auto (Bld) [#/Vol] 8.0 E9/L Normal 4.0-11.0 [facility] Comment on above: Performed By: #### 2 155340, 78569989, 8395040, 9840837250, 7578315, 2555533 ####[address] [place] [address] Erythrocyte distribution width (RBC) [Ratio] 13.4 % Normal 10.9-14.2 [facility] Comment on above: Performed By: #### 2 827136, 5097711, 56286535, 3990964, 80280549, 2711820, 4695276 ####[address] [place] [address] Hematocrit (Bld) [Volume fraction] 36.6 % Normal 34.0-46.0 [facility] Comment on above: Performed By: #### 2 163764, 6745895, 97902314, 3390347, 79111969, 7998778, 5523190 ####[facility] [address] [place] [address] Hemoglobin (Bld) [Mass/Vol] 12.5 g/dL Normal 12.0-16.0 [facility] Comment on above: Performed By: #### 2 859419, 7080091, 37824394, 4189996, 92457317, 0083918, 3466610 ####[facility] [address] [place] [address] MCH (RBC) [Entitic mass] 29.5 pg Normal 27.0-34.0 [facility] Comment on above: Performed By: #### 2 963974, 3529077, 74330920, 7208525, 66016571, 3061882, 2959712 ####[facility] [address] [place] [address] MCHC (RBC) [Mass/Vol] 34.1 g/dL Normal 31.4-36.0 [facility] Comment on above: Performed By: #### 2 426703, 1108208, 26985259, 2535738, 86456578, 4062011, 1868590 ####[facility] [address] [place] [address] MCV (RBC) [Entitic vol] 86.5 fL Normal 80.0-100.0 [facility] Comment on above: Performed By: #### 2 222854, 6840877, 38230376, 8145111, 01572701, 2588622, 1371989 ####[facility] [address] [place] [address] Platelet mean volume (Bld) [Entitic vol] 7.5 fL Normal 6.4-10.8 [facility] Comment on above: Performed By: #### 2 705813, 6305034, 81486946, 6501447, 49334227, 9708805, 4347018 ####[facility] [address] [place] [address] Platelets (Bld) [#/Vol] 191.0 E9/L Normal 150.0-500.0 [facility] Comment on above: Performed By: #### 2 064264, 0968734, 82805587, 5821680, 38250294, 2547120, 9995185 ####[facility] [address] [place] [address] RBC (Bld) [#/Vol] 4.2 E12/L Low 4.3-5.9 [facility] Comment on above: Performed By: #### 2 879222, 5209840, 90500770, 2133645, 08192825, 4995224, 7706358 ####[facility] [address] [place] [address] WBC corrected for nucl RBC Auto (Bld) [#/Vol] 8.8 E9/L Normal 4.0-11.0 [facility] Comment on above: Performed By: #### 2 318702, 3659061, 14234902, 4136776, 68654002, 8985409, 4899865 ####[facility] [address] [place] [address] CEFTRIAXONE:SUSC:PT:ISOLATE: ORDQN:MICOrdered By: Lisha Tavares on 03-23-2022 cefTRIAXone QUOC [Susc] Streptococcus pk ivarius In 2 of 2 blood culture bottles drawn. Isolated from aerobic and anaerobic bottles Preliminary gram stain result of gram positive cocci in chains Result called to Dr. Mortensen by [facility] and results read back for confirmation on 03/23/2022 16:10:37 [facility] CHEMISTRYOrdered By: SYSTEM SYSTEM on 03-23-2022 Procalcitonin 1.08 ng/mL High 0.00 - 0.50 ng/mL FT Remisol Troponin I.cardiac [Mass/Vol] 30.40 pg/mL High 10.10 - 27.10 pg/mL [facility] Remisol Albumin [Mass/Vol] 3.5 g/dL Normal 3.3 - 5.0 gm/dL [facility] Remisol Albumin/Globulin [Mass ratio] 1.1 {ratio} Normal 1.1 - 2.2 [facility] Remisol ALP [Catalytic activity/Vol] 67 [iU]/d Normal 21 - 98 Int._Unit/L [facility] ALT No additional P-5'-P [Catalytic activity/Vol] 33 [iU]/d Normal 6 - 46 Int._Unit/L [facility] Remisol AST [Catalytic activity/Vol] 38 [iU]/d Normal 5 - 43 Int._Unit/L [facility] Remisol Bilirubin [Mass/Vol] 1.3 mg/dL High 0.0 - 1 .1 mg/dL [facility] Globulin (S) [Mass/Vol] 3.3 g/dL Normal 1.4 - 4.0 gm/dL [facility] Remisol Lactate [Mass/Vol] 0.8 mmol/L Normal 0.5 - 2.2 mmol/L [facility] Remisol Protein [Mass/Vol] 6.8 g/dL Normal 6.0 - 7.8 gm/dL [facility] Troponin I.cardiac [Mass/Vol] 31.00 pg/mL High 10.10 - 27.10 pg/mL [facility] Remisol CHEMISTRYOrdered By: Lab ROP User on 03-23-2022 Glucose [Mass/Vol] 112 mg/dL High 55 - 99 mg/dL [facility] POC Subsection Comment on above: Result Comment: Dmitry alvarez RN/ POC Device SN [id number] Invalid Interpretation Code [facility] POC Subsection POC User ID [id number] Invalid Interpretation Code [facility] POC Subsection POC Username MILDRED IVZCARRA Invalid Interpretation Code [facility] POC Subsection CMPon 03-23-2022 Albumin [Mass/Vol] 3.5 g/dL Normal 3.3-5.0 [facility] Comment on above: Performed By: #### 2 152675, 5112880, 57042452, 2561697, 22214704, 6571492, 4405975 ####[facility] [address] [place] [address] Albumin/Globulin (S) [Mass conc ratio] 1.1 Normal 1.1-2.2 [facility] Comment on above: Performed By: #### 2 503557, 4482932, 36202917, 8176468, 47605649, 8535644, 7060059 ####[facility] [address] [place] [address] ALP [Catalytic activity/Vol] 67 Int._Unit/L Normal 21-98 [facility] Comment on above: Performed By: #### 2 983596, 2547730, 46357881, 8693867, 27479600, 6418077, 0400267 ####[facility] [address] [place] [address] ALT No additional P-5'-P [Catalytic activity/Vol] 33 Int._Unit/L Normal 6-46 [facility] Comment on above: Performed By: #### 2 969558, 9396777, 71197476, 3850710, 75617768, 3103198, 9382039 ####[facility] [address] [place] [address] AST [Catalytic activity/Vol] 38 Int._Unit/L Normal 5-43 [facility] Comment on above: Performed By: #### 2 525578, 8334959, 63442095, 9258988, 50506362, 1500860, 4605877 ####[facility] [address] [place] [address] Bilirubin [Mass/Vol] 1.3 mg/dL High 0.0-1.1 [facility] Comment on above: Performed By: #### 2 967863, 1744362, 61361309, 4878485, 38102353, 9379380, 5890318 ####[facility] [address] [place] [address] Creatinine [Mass/Vol] 0.9 mg/dL Normal 0.5-1.3 [facility] Comment on above: Performed By: #### 2 291942, 4716490, 38472142, 6282306, 36207420, 9492254, 4017045 ####[facility] [address] [place] [address] Globulin (S) [Mass/Vol] 3.3 g/dL Normal 1.4-4.0 [facility] Comment on above: Performed By: #### 2 919022, 4969240, 79735147, 2610131, 32341654, 8217929, 7091502 ####[facility] [address] [place] [address] Protein [Mass/Vol] 6.8 g/dL Normal 6.0-7.8 [facility] Comment on above: Performed By: #### 2 613606, 7081144, 14585655, 5921254, 33261628, 9411878, 3153289 ####[facility] [address] [place] [address] Urea nitrogen [Mass/Vol] 16 mg/dL Normal 5-21 [facility] Comment on above: Performed By: #### 2 495207, 8889755, 29016966, 6653005, 69021806, 0171882, 8540721 ####[facility] [address] [place] [address] Urea nitrogen/Creatinine [Mass ratio] 18 No Units Normal 10-20 [facility] Comment on above: Performed By: #### 2 953640, 0351294, 02946941, 9484484, 66930162, 6049785, 3075106 ####[facility] [address] [place] [address] Anion gap [Moles/Vol] 13 mmol/L Normal 6-16 [facility] Comment on above: Performed By: #### 2 031717, 3963747, 71385962, 5154917, 75213880, 7937530, 9572466 ####[facility] [address] [place] [address] Calcium [Mass/Vol] 9.1 mg/dL Normal 8.9-11.1 [facility] Comment on above: Performed By: #### 2 873509, 8202265, 80560717, 2907915, 22042538, 6036743, 8507994 ####[facility] [address] [place] [address] Chloride [Moles/Vol] 99 mmol/L Low 101-111 [facility] Comment on above: Performed By: #### 2 092257, 2737277, 80095329, 7037758, 54464483, 4225685, 6911616 ####[facility] [address] [place] [address] CO2 [Moles/Vol] 21 mmol/L Normal 21-31 [facility] Comment on above: Performed By: #### 2 562313, 7591639, 42844031, 5803241, 38018609, 5992989, 5941002 ####[facility] [address] [place] [address] Glucose [Mass/Vol] 113 mg/dL Normal 55-199 [facility] Comment on above: Result Comment: If t his glucose result represents a fasting glucose, interpretation should refer to the following reference range: 55-99 mg/dL Performed By: #### 2 294200, 2932030, 82518194, 4177544, 72860712, 7081526, 1516557 ####[facility] [address] [place] [address] Potassium [Moles/Vol] 3.5 mmol/L Normal 3.5-5.3 [facility] Comment on above: Performed By: #### 2 112278, 7407930, 32584997, 5657158, 06648657, 7690969, 1779365 ####[facility] [address] [place] [address] Sodium [Moles/Vol] 129 mmol/L Low 135-145 [facility] Comment on above: Performed By: #### 2 030685, 5643567, 58611173, 7642024, 26755725, 3510492, 8156195 ####[facility] [address] [place] [address] COAGULATIONOrdered By: Meli Potter on 03-23-2022 aPTT Coag (PPP) [Time] 34.5 s Normal 25.1 - 36.5 second(s) [facility] Auto Coag INR Coag (PPP) [Relative time] 2.7 {INR} Invalid Interpretation Code [facility] Auto Coag PT Coag (PPP) [Time] 31.2 s High 9.4 - 1 2.5 second(s) [facility] Auto Coag Capillary Glucose POCon 03-02 Glucose [Mass/Vol] 112 mg/dL High 55-99 [facility] Comment on above: Result Comment: Dmitry alvarez RN/MD Performed By: #### 2 [id number] ####[facility] [address] [place] [address] Cardiology Progress Noteon 1 05-23-2021 Cardiology Progress Note Normal [facility] Comment on above: Result Comment: Elec tronically Signed By: Ingrid HAYWARD CNP\.br\Date and Time Signed: 03/23/22 15:44 EST\.br\Electronically Co-Signed By: Lita RICE, Wilfred Calvo\.br\Date and Time Co-Signed: 03/23/22 17:08 EST Consent for Treatmenton 03-02 Consent for Treatment [id number]: 127 Normal [facility] Consultation Noteon 03-23-20 Consultation Note Normal [facility] Comment on above: Result Comment: Elec tronically Signed By: Lita RICE, Wilfred Calvo\.br\Date and Time Signed: 03/23/22 17:07 EST Consultation Note Normal [facility] Comment on above: Result Comment: Elec tronically Signed By: Evan Stovall MD\.br\Date and Time Signed: 03/23/22 13:20 EST ED Clinical Summaryon 2021 ED Clinical Summary Normal [facility] ED Note-Nursingon 03-23-2022 ED Note-Nursing Normal [facility] ED Note-Physicianon 03-23-20 ED Note-Physician Normal [facility] Comment on above: Result Comment: Elec tronically Signed By: Annie Zaldivar DO\.br\Date and Time Signed: 03/23/22 03:18 EST ED Patient Education Noteon 03-23-2022 ED Patient Education Note Normal [facility] ED Patient Summaryon 022 ED Patient Summary Normal [facility] Echo Transthoracic Completeo n 03-23-2022 Echo Transthoracic Complete Normal [facility] HEMATOLOGYOrdered By: SYSTEM SYSTEM on 03-23-2022 [...] 13.4 % Normal 10.9 - 14.2 % [facility] HemeAutoSS Hematocrit (Bld) [Volume fraction] 36.6 % Normal 34.0 - 46.0 % [facility] Hemoglobin (Bld) [Mass/Vol] 12.5 g/dL Normal 12.0 - 16.0 gm/dL [facility] MCH (RBC) [Entitic mass] 29.5 pg Normal 27.0 - 34.0 pg [facility]eAuto[facility] MCHC (RBC) [Mass/Vol] 34.1 g/dL Normal 31.4 - 36.0 gm/dL [facility] MCV (RBC) [Entitic vol] 86.5 fL Normal 80.0 - 100.0 fL [facility] Platelet mean volume (Bld) [Entitic vol] 7.5 fL Normal 6.4 - 10.8 fL [facility] Platelets (Bld) [#/Vol] 191.0 E9/L Normal 150. 0 - 500.0 E9/L [facility] RBC (Bld) [#/Vol] 4.2 E12/L Low 4.3 - 5.9 E12/L [facility] HemeAutoSS WBC corrected for nucl RBC Auto (Bld) [#/Vol] 8.8 E9/L Normal 4.0 - 11.0 E9/L [facility] HemeAutoSS Influenza A&B Agon Influenzae A Ag Negative Normal Negative [facility] Comment on above: Performed By: #### 1 1549938, [id number] ####[facility] [address] [place] [address] Influenzae B Ag Negative Normal Negative [facility] Comment on above: Result Comment: Test sensitivity and specificity vary for age group, specimen type, antigen types, and prevalence of disease. Test results must be evaluated in conjunction with other clinical data available to the physician. Individuals who received nasally administered Influenza A vaccine may have positive test results up to 3 days after vaccination. Performed By: #### 1 9153489, [id number] ####[facility] [address] [place] [address] Interdisciplinary Note - Pito e Manageron 03-23-2022 Interdisciplinary Note - Event Planning Manager Normal [facility] Comment on above: Result Comment: Elec tronically Signed By: Mirela Petersen\Date and Time Signed: 03/23/22 09:47 EST Laboratory - Microbiology an d Antimicrobial susceptibilityOrdered By: Lisha Tavares on 03-23-2022 Bacteria identified Cx Nom (U) 5,000 cfu/ml Mixed skin contaminants [facility] Lactic Acidon 03-23-2022 Lactate [Mass/Vol] 0.8 mmol/L Normal 0.5-2.2 [facility] Comment on above: Performed By: #### 2 745069, 4498906, 30372669, 6449036, 17305711, 6196145, 6228102 ####[facility] [address] [place] [address] MICRO OTHER TESTSOrdered By: Gayle Potter on 03-23-2022 Influenzae A Ag Negative (03/23/22 12:48 AM) Normal Negative [facility] Influenzae B Ag Negative (03/23/22 12:48 AM) Normal Negative [facility] Rapid COV Int NEG Ctl Pass (03/23/22 12:48 AM) Normal [facility] Man Sero Rapid COV Int POS Ctl Pass (03/23/22 12:48 AM) Normal [facility] SARS-CoV+SARS-CoV-2 (COVID-19) Ag IA.rapid Ql (Resp) Not Detected (03/23/22 12:48 AM) Normal Not Detected [facility] Man Sero Message from Medicareon 03-02 Message from Medicare [id number] :127 Normal [facility] Monitor Recordon 03-23-2022 Monitor Record [id number] :127 Normal [facility] No Panel InformationOrdered By: Lisha Tavares on 03-23-2022 Blood Culture Charcoal Streptococcus pk ivarius Presumptive refer to blood culture from 03/23/22 at 0124 for complete susceptibility In 2 of 2 blood culture bottles drawn. Isolated from aerobic and anaerobic bottles Preliminary gram stain result of gram positive cocci in chains Result called to Dr. Mortensen by [facility] and results read back for confirmation on 03/23/2022 16:11:53 [facility] PT & PTTon 03-23-2022 aPTT Coag (PPP) [Time] 34.5 second(s) Normal 25.1-36.5 [facility] Comment on above: Result Comment: Para [...] the same coagulation reagent and instrumentation as [facility]. Currently there are no coagulation studies available worldwide for children to 14 days, and no normal ranges. Heparin therapeutic range (represented by Anti-Factor Xa activity of 0.2 - 0.4 U/mL) corresponds to PTT of 56.6 - 109.0 sec. Performed By: #### 2 598803, 5411653, 97400907, 5696756, 79040450, 7773476, 2931939 ####[facility] [address] [place] [address] INR Coag (PPP) [Relative time] 2.7 {INR} Invalid Interpretation Code [facility] Comment on above: Result Comment: INR results are specifically intended to assess patients stabilized on long-term Anticoagulation therapy suggested INR?s ?Less Intensive Anticoagulation? 2.0 ? 3.0Conventional Range 3.0 ? 4.5 Performed By: #### 2 675791, 8606778, 04322628, 2970188, 65259212, 1720109, 6621583 ####[facility] [address] [place] [address] PT Coag (PPP) [Time] 31.2 second(s) High 9.4-12.5 [facility] Comment on above: Result Comment: 15 [...] the same coagulation reagent and instrumentation as [facility]. Currently there are no coagulation studies available worldwide for children to 14 days, and no normal ranges. Performed By: #### 2 856910, 1013060, 42624150, 1187645, 98405729, 2991317, 0066049 ####[facility] [address] [place] [address] Procalcitoninon 03-23-2022 Procalcitonin 1.08 ng/mL High .00-.50 [facility] Comment on above: Result Comment: <0.5 [...] to 24 hours. Performed By: #### 2 391228, 78102075, 5000115, 9387712521, 8057314, 2742596 ####[facility] [address] [place] [address] Progress Note - Pharmacyon 1 05-23-2021 Progress Note - Pharmacy Normal [facility] Rapid COVID Antigen ([facility])on 03-23-2022 Rapid COV Int NEG Ctl Pass Normal Fis her [facility] Comment on above: Performed By: #### 1 9265811, [id number] ####[facility] [address] [place] [address] Rapid COV Int POS Ctl Pass Normal Fis [facility] Comment on above: Performed By: #### 1 3965371, [id number] ####[facility] [address] [place] [address] SARS-CoV+SARS-CoV-2 (COVID-19) Ag IA.rapid Ql (Resp) Not detected Normal Not Detected [facility] Comment on above: Result Comment: The [employer] System for Rapid Detection of SARS-CoV-2 is [...] For in vitro diagnostic use. In the [facility], only for use under an Emergency Use [...] or revoked sooner. Performed By: #### 1 9492354, [id number] ####[place] [address] ADMITTED TO INTENSIVE CARE UNIT FOR CONDITION OF INTEREST:FIND:PT: NO Normal [facility] Comment on above: Performed By: #### 1 3202790, [id number] ####[place] [address] EMPLOYED IN A HEALTHCARE SETTING:FIND:PT: NO Normal [facility] Comment on above: Performed By: #### 1 6473593, [id number] ####[place] [address] FIRST TEST FOR CONDITION OF INTEREST:FIND:PT: YES Normal [facility] Comment on above: Performed By: #### 1 0133545, [id number] ####[place] [address] HAS SYMPTOMS RELATED TO CONDITION OF INTEREST:FIND:PT: YES Normal [facility] Comment on above: Performed By: #### 1 0178394, [id number] ####[place] [address] HOSPITALIZED FOR CONDITION OF INTEREST:FIND:PT: NO Normal [facility] Comment on above: Performed By: #### 1 0328711, [id number] ####[place] [address] STATUS:FIND:PT: NO Normal [facility] Comment on above: Performed By: #### 1 5390858, [id number] ####[place] [address] [facility] SETTING:FIND:PT: NO Normal [facility] Comment on above: Performed By: #### 1 1767941, [id number] ####[address] [place] [address] Reference Laboratory Testing Ordered By: EmprivoUser on 03-23-2022 L. pneumophila 1 Ag IA Ql (U) Negative Invalid Interpretation Code Negative [facility] SendOutsSS Comment on above: Result Comment: Pres umptive negative for L. pneumophila serogroup 1 antigen in urine, suggesting no recent or current infection. Legionnaires' disease cannot be ruled out since other serogroups and species may also cause disease. Performed at: Lab[address] [id number] MD Guevara Lewis Troponinon 03-23-2022 Troponin I.cardiac [Mass/Vol] 30.40 pg/mL High 10.10-27.10 [facility] Comment on above: Result Comment: The 95% CI (Confidence Interval) PPV (Positive Predictive Value) for myocardial infarction in females is 38 pg/mL, in males 51 pg/mL. The results should be used in conjunction with clinical conditions of myocardial infarction.(Access High Sensitivity Troponin I Instructions For Use, [facility], November 2017) Performed By: #### 2 530484, [id number], [id number], [id number], [id number], [id number] ####[facility] [address] [place] [address] Troponin I.cardiac [Mass/Vol] 31.00 pg/mL High 10.10-27.10 [facility] Comment on above: Result Comment: The 95% CI (Confidence Interval) PPV (Positive Predictive Value) for myocardial infarction in females is 38 pg/mL, in males 51 pg/mL. The results should be used in conjunction with clinical conditions of myocardial infarction.(Access High Sensitivity Troponin I Instructions For Use, WUT, November 2017) Performed By: #### 2 [id number], [id number], [id number], 3849049, [id number], 4300501, [id number] ####[facility] [address] [place] [address] UA With Cult Reflexon 2021 Bacteria LM Ql (Urine sed) TRACE Normal Trace [facility] Comment on above: Performed By: #### 2 916682, [id number] ####[facility] [address] [place] [address] Bilirubin Ql (U) Negative Normal Negative [facility] Comment on above: Performed By: #### 2 362364, [id number] ####[facility] [address] [place] [address] Clarity (U) CLEAR Normal Clear [facility] Comment on above: Performed By: #### 2 770886, [id number] ####[address] [address] Color (U) YELLOW Normal Yellow [facility] Comment on above: Performed By: #### 2 613826, [id number] ####[address] [address] Epithelial cells.squamous LM.HPF (Urine sed) [#/Area] 3-4 Normal 0-2 [facility] Comment on above: Performed By: #### 2 098951, [id number] ####[address] [address] Glucose Test strip (U) [Mass/Vol] Negative Normal Negative [facility] Comment on above: Performed By: #### 2 819505, [id number] ####[facility] [address] [place] [address] Hemoglobin Ql (U) 1+ Abnormal Negative [facility] Comment on above: Performed By: #### 2 031926, [id number] ####[facility] [address] [place] [address] Ketones (U) [Mass/Vol] 1+ Abnormal Negative Fi [facility] Comment on above: Performed By: #### 2 530771, [id number] ####[address] [address] [place] [facility].plasma/[facility]. RBC (Bld) [Mass ratio] 4-20 Normal 0-3 [facility] Comment on above: Performed By: #### 2 351292, [id number] ####[address] [address] Nitrite Ql (U) Negative Normal Negative [facility] Comment on above: Performed By: #### 2 101459, [id number] ####[address] [address] pH (U) 6.0 [pH] Invalid Interpretation Code 5.0-9.0 [facility] Comment on above: Performed By: #### 2 601472, [id number] ####[place] [id number] Protein (U) [Mass/Vol] 2+ Abnormal Negative Fi [facility] Comment on above: Performed By: #### 2 077766, [id number] ####[place] [address] Specific gravity (U) [Rel density] 1.015 Invalid Interpretation Code 1.005-1.030 [facility] Comment on above: Performed By: #### 2 713964, [id number] ####[place] [address] Type of Urine collection method Clean Catch Normal [facility] Comment on above: Performed By: #### 2 492931, [id number] ####[place] 7139457 Urobilinogen Qn (U) 0.2 {Radha'U}/dL Normal 0.0-1.0 [facility] Comment on above: Performed By: #### 2 267881, [id number] ####[place] 7139457 WBC Auto Ql (U) TRACE Abnormal Negative [facility] Comment on above: Performed By: #### 2 445716, [id number] ####[place] 7139457 WBC LM.HPF (Urine sed) [#/Area] 6-15 Abnormal 0-5 [facility] Comment on above: Performed By: #### 2 597877, [id number] ####[place] 7139457 URINALYSISOrdered By: Marine Potter on 03-23-2022 Bacteria [...] Interpretation Code Negative [facility] UA Auto SS [facility].plasma/[facility]. RBC (Bld) [Mass ratio] 4-20 /HPF Normal [...] AM) Invalid Interpretation Code 1.005 - 1.030 [facility] UA Auto SS UA Spec Desc Clean Catch (03/23/22 2:58 AM) Normal [facility] UA Auto SS Urobilinogen Qn (U) 0.9180786 {Radha'U}/dL Normal 0.0 - 1.0 EU/dL [facility] UA Auto SS WBC Auto Ql (U) Trace *ABN* (03/23/22 2:58 AM) Invalid Interpretation Code Negative [facility] UA Auto SS WBC LM.HPF (Urine sed) [#/Area] 6-15 /HPF Invalid Interpretation Code 0-5/HPF [facility] UA Auto SS XR Chest Single Viewon 03-23 XR Chest Single View Normal [facility] cefTRIAXone QUOC [Susc]Ordere d By: Lisha Tavares on 03-23-2022 Streptococcus salivarius Streptococcus salivarius [facility] eGFRon 03-23-2022 GFR/1.73 sq M.predicted among blacks MDRD (S/P/Bld) [Vol rate/Area] mL/min/{1.73_m2} Normal >=59 [facility] Comment on above: Order Comment: Order added by Discern Expert. Result Comment: eGFR is race adjusted. AA=. Performed By: #### 2 989481, [id number], 2386582, [id number], 2687074, 6205870 ####[facility] [address] [place] [address] GFR/1.73 sq M.predicted among non-blacks MDRD (S/P/Bld) [Vol rate/Area] 54 mL/min/1.73 m2 Low >=59 [facility] Comment on above: Order Comment: Order added by Discern Expert. Result Comment: Steam Trap Worker quan kidney disease could be indicated at eGFR's of less than 60 mL/min/1.73m2. Kidney failure is indicated at less than 15 mL/min/1.73m2. Performed By: #### 2 853861, [id number], 8339861, [id number], 1377386, 1941243 ####[facility] [address] [place] [address] GFR/1.73 sq M.predicted among blacks MDRD (S/P/Bld) [Vol rate/Area] mL/min/{1.73_m2} Normal >=59 [facility] Comment on above: Order Comment: Order added by Discern Expert. Result Comment: eGFR is race adjusted. AA=. Performed By: #### 2 934493, 9571207, 75970284, 9924198, 05416347, 2803419, 1315569 ####[facility] [address] [place] [address] GFR/1.73 sq M.predicted among non-blacks MDRD (S/P/Bld) [Vol rate/Area] mL/min/{1.73_m2} Normal >=59 [facility] Comment on above: Order Comment: Order added by Discern Expert. Result Comment: Steam Trap Worker quan kidney disease could be indicated at eGFR's of less than 60 mL/min/1.73m2. Kidney failure is indicated at less than 15 mL/min/1.73m2. Performed By: #### 2 947407, 7049409, 80937501, 7529893, 49116491, 2592934, 3370547 ####[facility] [address] [place] [address] Prot. Electroph, Blon 2021 Pathologist Review: ELECTRONICALLY NATHALIA CORADO M.D. Normal [facility] Comment on above: Performed By: #### P ARA, VD25, PE #### [address] [id number] Popcorn Machine Operator: Len Martínez MD #### BMP #### [facility] [address] [place] [address] Popcorn Machine Operator: Zac Loera MD Prot. Elect-Interp NORMAL ELECTROPHORET IC PATTERN Normal [facility] Comment on above: Performed By: #### P DAWSONNCEly, VD25, PE #### [facility] [address] [place] [address] [phone] [employer]corn Machine Operator: Lne Martínez MD #### BMP #### [facility] [address] [place] [address] Popcorn Machine Operator: Zac Loera MD Prot. Electroph, Blon 2021 Albumin [Mass/Vol] 4.3 g/dL Normal 3.2-5.2 [facility] Comment on above: Performed By: #### P THNCA, VD25, PE #### [address] [id number] Popcorn Machine Operator: Len Martínez MD #### BMP #### [facility] [address] [place], [place] 3776090 Popcorn Machine Operator: Zac Loera MD Albumin, % 61 % Normal 45-65 [facility] Comment on above: Performed By: #### P THNCA, VD25, PE #### [address] [address] Popcorn Machine Operator: Len Martínez MD #### BMP #### [facility] [address] [place], [place] 7991690 Popcorn Machine Operator: Zac Loera MD Umoam-7-egdmboqzn 0.2 g/dL Normal 0.1-0.4 [facility] Comment on above: Performed By: #### P THNCA, VD25, PE #### [address] [address] Popcorn Machine Operator: Len Martínez MD #### BMP #### [facility] [address] [place], [place] 7897790 Popcorn Machine Operator: Zac Loera MD Htgbj-7-bsvjunbea,% 2 % Low 3-6 [facility] Comment on above: Performed By: #### P THNCA, VD25, PE #### [address] [address] Popcorn Machine Operator: Len Martínez MD #### BMP #### [facility] [address] [place], [place] 0110990 Popcorn Machine Operator: Zac Loera MD Noyrq-3-vamogqakr 0.8 g/dL Normal 0.5-0.9 [facility] Comment on above: Performed By: #### P THNCA, VD25, PE #### [address] [address] Popcorn Machine Operator: Len Martínez MD #### BMP #### [facility] [address] [place], [place] 8955190 Popcorn Machine Operator: Zac Loera MD Gbozt-0-hbbbxgmao,% 12 % Normal 6-13 [facility] Comment on above: Performed By: #### P THNCA, VD25, PE #### [address] [phone] Popcorn Machine Operator: Len Martínez MD #### BMP #### [facility] [address] [place], [place] 3095490 Popcorn Machine Operator: Zac Loera MD Beta-globulins 0.7 g/dL Normal 0.5-1.1 [facility] Comment on above: Performed By: #### P THNCA, VD25, PE #### [address] [phone] Popcorn Machine Operator: Len Martínez MD #### BMP #### [facility] [address] [place], [place] [phone] Popcorn Machine Operator: Zac Loera MD Beta-globulins,% 10 % Low 11-19 [facility] Comment on above: Performed By: #### P THNCA, VD25, PE #### [address] [id number] Popcorn Machine Operator: Len Martínez MD #### BMP #### [facility] [address] [place], [place] 0677090 Popcorn Machine Operator: Zac Loera MD Gamma-globulins 1.1 g/dL Normal 0.5-1.5 [facility] Comment on above: Performed By: #### P THNCA, VD25, PE #### [address] [phone] Popcorn Machine Operator: Len Martínez MD #### BMP #### [facility] [address] [place], [place] 0962290 Popcorn Machine Operator: Zac Loera MD Gamma-globulins,% 15 % Normal 9-20 [facility] Comment on above: Performed By: #### P THNCA, VD25, PE #### [place] [address] [place], [place] 7849808 Popcorn Machine Operator: Len Martínez MD #### BMP #### [facility] [address] [place], [place] 4013290 Popcorn Machine Operator: Zac Loera MD Total Prot. Sum 7.1 g/dL Normal 6.3-8.2 [facility] Comment on above: Performed By: #### P THNCA, VD25, PE #### [address] [phone] Popcorn Machine Operator: Len Martínez MD #### BMP #### [facility] [address] [place], [place] 3871690 Popcorn Machine Operator: Zac Loera MD Total Prot. Sum,% 100 % Normal 98-102 [facility] Comment on above: Performed By: #### P THNCA, VD25, PE #### [address] [phone] Popcorn Machine Operator: Len Martínez MD #### BMP #### [facility] [address] [place], [place] 6547990 Popcorn Machine Operator: Zac Loera MD Basic Metabolic Panelon 09-0 Anion gap [Moles/Vol] 12 mmol/L 9 - 17 mmol/L [facility] Calcium [Mass/Vol] 9.7 mg/dL 8.6 - 10. 4 mg/dL [facility] Chloride [Moles/Vol] 102 mmol/L 98 - 10 7 mmol/L [facility] CO2 [Moles/Vol] 22 mmol/L 20 - 31 mmol/L [facility] Creatinine [Mass/Vol] 1.01 mg/dL High 0.5 - 0.9 mg/dL [facility] GFR >60 60 - PI NF mL/min [facility] GFR Non- 54 mL/min Low 60 - PINF mL/min [facility] GFR/1.73 sq M.predicted MDRD (S/P/Bld) [Vol rate/Area] [facility] Comment on above: Average GFR for 70 o r more years old: 75 mL/min/1.73sq m Chronic Kidney Disease: <60 mL/min/1.73sq m Kidney failure: <15 mL/min/1.73sq m eGFR calculated using average adult body mass. Additional eGFR calculator available at: http://www.[employer]_crcl_2011.htm Glucose [Mass/Vol] 130 mg/dL High 70 - 99 mg/dL [facility] Interpretation and review of laboratory results Abnormal [facility] Potassium [Moles/Vol] 4.3 mmol/L 3.7 - 5.3 mmol/L [facility] Sodium [Moles/Vol] 136 mmol/L 135 - 144 mmol/L [facility] Urea nitrogen (BldV) [Mass/Vol] 20 mg/dL 8 - 23 mg/dL [facility] Urea nitrogen/Creatinine (Bld) [Mass ratio] 20 9 - 20 [facility] Basic Metabolic Profon 01-07 (cont.) Normal [facility] Comment on above: Result Comment: Aver age GFR for 70 or more years old: 75 mL/min/1.73sq m Chronic Kidney Disease: <60 mL/min/1.73sq m Kidney failure: <15 mL/min/1.73sq m eGFR calculated using average adult body mass. Additional eGFR calculator available at: http://www.[employer]/multiple_crcl_2011.htm Performed By: #### P ARA VD25, PE #### [facility] [employer] [address] [place] [address] Popcorn Machine Operator: Len Martínez MD #### BMP #### [facility] [address] [place], [place] [phone] Popcorn Machine Operator: Zac Loera MD Anion gap [Moles/Vol] 12 mmol/L Normal 9-17 [facility] Comment on above: Performed By: #### P THNCA, VD25, PE #### [address] [phone] Popcorn Machine Operator: Len Martínez MD #### BMP #### [facility] [address] [place], [place] [phone] Popcorn Machine Operator: Zac Loera MD BUN/CRE Ratio 20 Normal - [facility] Comment on above: Performed By: #### P THNCA, VD25, PE #### [address] [phone] Popcorn Machine Operator: Len Martínez MD #### BMP #### [facility] [address] [place], [place] 9743290 Popcorn Machine Operator: Zac Loera MD Calcium [Mass/Vol] 9.7 mg/dL Normal 8.6-10.4 [facility] Comment on above: Performed By: #### P THNCA, VD25, PE #### [address] [phone] Popcorn Machine Operator: Len Martínez MD #### BMP #### [facility] [address] [place] [address] Popcorn Machine Operator: Zac Loera MD Chloride [Moles/Vol] 102 mmol/L Normal 98-107 [facility] Comment on above: Performed By: #### P THNCA, VD25, PE #### [address] [address] Popcorn Machine Operator: Len Martínez MD #### BMP #### [facility] [address] [place], [place] [phone] Popcorn Machine Operator: Zac Loera MD CO2 [Moles/Vol] 22 mmol/L Normal 20-31 [facility] Comment on above: Performed By: #### P THNCA, VD25, PE #### [place] [address] [place], [place] 0005908 Popcorn Machine Operator: Len Martínez MD #### BMP #### [facility] [address] [place], [place] 7250090 Popcorn Machine Operator: Zac Loera MD Creatinine [Mass/Vol] 1.01 mg/dL High 0.50-0.90 [facility] Comment on above: Performed By: #### P THNCA, VD25, PE #### [address] [phone] Popcorn Machine Operator: Len Martínez MD #### BMP #### [facility] [address] [place], [place] 7184790 Popcorn Machine Operator: Zac Loera MD GFR, Amer >60 Normal >60 [facility] Comment on above: Performed By: #### P THNCA, VD25, PE #### [address] [phone] Popcorn Machine Operator: Len Martínez MD #### BMP #### [facility] [address] [place] [address] Popcorn Machine Operator: Zac Loera MD GFR,non Amer 54 mL/min Low >60 [facility] Comment on above: Performed By: #### P THNCA, VD25, PE #### [address] [address] Popcorn Machine Operator: Len Martínez MD #### BMP #### [facility] [address] [place], [place] [phone] Popcorn Machine Operator: Zac Loera MD Glucose [Mass/Vol] 130 mg/dL High 70-99 [facility] Comment on above: Performed By: #### P THNCA, VD25, PE #### [address] [address] Popcorn Machine Operator: Len Martínez MD #### BMP #### [facility] [address] [place], [place] 7682690 Popcorn Machine Operator: Zac Loera MD Potassium [Moles/Vol] 4.3 mmol/L Normal 3.7-5.3 [facility] Comment on above: Performed By: #### P THNCA, VD25, PE #### [address] [phone] Popcorn Machine Operator: Len Martínez MD #### BMP #### [facility] [address] [place], [place] 8373390 Popcorn Machine Operator: Zac Loera MD Sodium [Moles/Vol] 136 mmol/L Normal 135-144 [facility] Comment on above: Performed By: #### P THNCA, VD25, PE #### [address] [address] Popcorn Machine Operator: Len Martínez MD #### BMP #### [facility] [address] [place] [address] Popcorn Machine Operator: Zac Loera MD Urea nitrogen [Mass/Vol] 20 mg/dL Normal 8-23 [facility] Comment on above: Performed By: #### P THNCA, VD25, PE #### [address] [address] Popcorn Machine Operator: Len Martínez MD #### BMP #### [facility] [address] [place], [place] [phone] Popcorn Machine Operator: Zac Loera MD PTH, Intacton 01-07-2022 PTH, Intact 78.3 pg/mL High 14.0-72.0 [facility] Comment on above: Result Comment: SAMP LES FROM PATIENTS ROUTINELY RECEIVING HIGH DOSE BIOTIN THERAPY MAY SHOW FALSELY DEPRESSED RESULTS. ADDITIONAL INFORMATION MAY BE REQUIRED FOR DIAGNOSIS. Performed By: #### P THNCA, VD25, PE #### [facility] [address] [place] [address] Popcorn Machine Operator: Len Martínez MD #### BMP #### [facility] [address] [place], [place] 2847390 Popcorn Machine Operator: Zac Loera MD Interpretation and review of laboratory results Abnormal [facility] Pth Intact 78.3 pg/mL High 14 - 72 pg/mL [facility] Comment on above: SAMPLES FROM PATIENT S ROUTINELY RECEIVING HIGH DOSE BIOTIN THERAPY MAY SHOW FALSELY DEPRESSED RESULTS. ADDITIONAL INFORMATION MAY BE REQUIRED FOR DIAGNOSIS. [facility] Prot. Electroph, Blon 2021 Protein [Mass/Vol] 7.1 g/dL Normal 6.4-8.3 [facility] Comment on above: Performed By: #### P THNCA, VD25, PE #### [facility] [address] [place] [address] Popcorn Machine Operator: Len Martínez MD #### BMP #### [facility] [address] [place] [address] Popcorn Machine Operator: Zac Loera MD Vitamin D 25 Hydroxyon 01-07 Vit D, 25-Hydroxy 58.1 ng/mL 29.9 - PIN F ng/mL [facility] Comment on above: Reference Range: Vitamin D status Range Deficiency <20 ng/mL Mild Deficiency 20-30 ng/mL Sufficiency 30-100 ng/mL Toxicity >100 ng/mL [facility] Vitamin D 25 OHon 01-07-2022 Vitamin D 25 [place] 58.1 ng/mL Normal >29.9 [facility] Comment on above: Result Comment: Reference Range: Vitamin D status Range Deficiency <20 ng/mL Mild Deficiency 20-30 ng/mL Sufficiency 30-100 ng/mL Toxicity >100 ng/mL Performed By: #### P ARA, VD25, PE #### [facility] [address] [place] [address] Popcorn Machine Operator: Len Martínez MD #### BMP #### [facility] [address] [place] [address] Popcorn Machine Operator: Zac Loera MD Basic Metabolic Panel 11-30 Anion gap [Moles/Vol] 8 mmol/L Low 9 - 17 mmol/L [facility] Calcium [Mass/Vol] 9.9 mg/dL 8.6 - 10. 4 mg/dL [facility] Chloride [Moles/Vol] 103 mmol/L 98 - 10 7 mmol/L [facility] CO2 [Moles/Vol] 26 mmol/L 20 - 31 mmol/L [facility] Creatinine [Mass/Vol] 1.15 mg/dL High 0.5 - 0.9 mg/dL [facility] GFR 56 mL/min Low 60 - PI NF mL/min [facility] GFR Non- 46 mL/min Low 60 - PINF mL/min [facility] GFR/1.73 sq M.predicted MDRD (S/P/Bld) [Vol rate/Area] [facility] Comment on above: Average GFR for 70 o r more years old: 75 mL/min/1.73sq m Chronic Kidney Disease: <60 mL/min/1.73sq m Kidney failure: <15 mL/min/1.73sq m eGFR calculated using average adult body mass. Additional eGFR calculator available at: http://www.[employer]/multiple_crcl_2012.htm Glucose [Mass/Vol] 114 mg/dL High 70 - 99 mg/dL [facility] Interpretation and review of laboratory results Abnormal [facility] Telepo Potassium [Moles/Vol] 4.3 mmol/L 3.7 - 5.3 mmol/L [facility] Sodium [Moles/Vol] 137 mmol/L 135 - 144 mmol/L [facility] Urea nitrogen (BldV) [Mass/Vol] 20 mg/dL 8 - 23 mg/dL [facility] Urea nitrogen/Creatinine (Bld) [Mass ratio] 17 9 - 20 [facility] Basic Metabolic Profon 12-20 (cont.) Normal [facility] Comment on above: Result Comment: Aver age GFR for 70 or more years old: 75 mL/min/1.73sq m Chronic Kidney Disease: <60 mL/min/1.73sq m Kidney failure: <15 mL/min/1.73sq m eGFR calculated using average adult body mass. Additional eGFR calculator available at: http://www.[employer]/multiple_crcl_2012.htm Performed By: #### B MP #### [facility] [address] [place] [address] Popcorn Machine Operator: Zac Loera MD Anion gap [Moles/Vol] 8 mmol/L Low - [facility] Comment on above: Performed By: #### B MP #### [facility] [address] [place] [address] Popcorn Machine Operator: Zac Loera MD BUN/CRE Ratio 17 Normal - [facility] Comment on above: Performed By: #### B MP #### [facility] [address] [place] [address] Popcorn Machine Operator: Zac Loera MD Calcium [Mass/Vol] 9.9 mg/dL Normal 8.6-10.4 [facility] Comment on above: Performed By: #### B MP #### [facility] [address] [place] [address] Popcorn Machine Operator: Zac Loera MD Chloride [Moles/Vol] 103 mmol/L Normal 98-107 [facility] Comment on above: Performed By: #### B MP #### [facility] [address] [place] [address] Popcorn Machine Operator: Zac Loera MD CO2 [Moles/Vol] 26 mmol/L Normal 20-31 [facility] Comment on above: Performed By: #### B MP #### [facility] [address] [place], [place] [phone] Popcorn Machine Operator: Zac Loera MD Creatinine [Mass/Vol] 1.15 mg/dL High 0.50-0.90 [facility] Comment on above: Performed By: #### B MP #### [facility] [address] [place], [place] [phone] Popcorn Machine Operator: Zac Loera MD GFR, Amer 56 mL/min Low >60 [facility] Comment on above: Performed By: #### B MP #### [facility] [address] [place], [place] 2100990 Popcorn Machine Operator: Zac Loera MD GFR,non Amer 46 mL/min Low >60 [facility] Comment on above: Performed By: #### B MP #### [facility] [address] [place], [place] [phone] Popcorn Machine Operator: Zac Loera MD Glucose [Mass/Vol] 114 mg/dL High 70-99 [facility] Comment on above: Performed By: #### B MP #### [facility] [address] [place], [place] [phone] Popcorn Machine Operator: Zac Loera MD Potassium [Moles/Vol] 4.3 mmol/L Normal 3.7-5.3 [facility] Comment on above: Performed By: #### B MP #### [facility] [address] [place], [place] 2741190 Popcorn Machine Operator: Zac Loera MD Sodium [Moles/Vol] 137 mmol/L Normal 135-144 [facility] Comment on above: Performed By: #### B MP #### [facility] [address] [place] [address] Popcorn Machine Operator: Zac Loera MD Urea nitrogen [Mass/Vol] 20 mg/dL Normal 8-23 [facility] Comment on above: Performed By: #### B #### [facility] [address] [place] [address] Popcorn Machine Operator: Zac Loera MD Coding Summary.on 12-17-2021 Coding Summary. Normal [facility] Coding Summary.on 11-17-2021 Coding Summary. Normal [facility] Auto Diffon 11-14-2021 Basophils/100 WBC (Bld) 0.5 % Normal 0.0-2.0 [facility] Comment on above: Order Comment: Order Added by Discern Expert. Performed By: #### 2 031072, 1424207, 5070442, 24115944, [id number] ####[facility] [address] [place] [address] Basophils/Leukocytes Auto (Bld) [Pure # fraction] 0.1 E9/L Normal 0.0-0.2 [facility] Comment on above: Order Comment: Order Added by Discern Expert. Performed By: #### 2 734037, 3188007, 9686552, 82740397, [id number] ####[facility] [address] [place] [address] Eosinophils/100 WBC (Bld) 1.8 % Normal 0.0-8.0 [facility] Comment on above: Order Comment: Order Added by Discern Expert. Performed By: #### 2 727569, 4769435, 1535686, 91879034, 03328297 ####[facility] [address] [place] [address] Eosinophils/Leukocytes Auto (Bld) [Pure # fraction] 0.2 E9/L Normal 0.0-0.5 [facility] Comment on above: Order Comment: Order Added by Discern Expert. Performed By: #### 2 790662, 6337661, 4849154, 97133726, 81166111 ####[facility] [address] [place] [address] Lymphocytes/100 WBC (Bld) 9.1 % Low 14.0-50.0 [facility] Comment on above: Order Comment: Order Added by Discern Expert. Performed By: #### 2 990299, 0941900, 4048799, 85290656, 52631328 ####[address] [place] [address] Lymphocytes/Leukocytes Auto (Bld) [Pure # fraction] 1.2 E9/L Normal 1.0-4.0 [facility] Comment on above: Order Comment: Order Added by Discern Expert. Performed By: #### 2 440726, 0880789, 9510323, 63164133, 04021491 ####[address] [place] [address] Monocytes/100 WBC (Bld) 11.3 % Normal 4.0-14.0 [facility] Comment on above: Order Comment: Order Added by Discern Expert. Performed By: #### 2 801415, 4448262, 5971581, 38044607, 44382020 ####[address] [place] [address] Monocytes/Leukocytes Auto (Bld) [Pure # fraction] 1.4 E9/L High 0.2-1.0 [facility] Comment on above: Order Comment: Order Added by Discern Expert. Performed By: #### 2 655610, 9788279, 9505603, 33326418, 03434700 ####[facility] [address] [place] [address] Neutrophils/100 WBC (Bld) 77.3 % High 36.0-75.0 [facility] Comment on above: Order Comment: Order Added by Discern Expert. Performed By: #### 2 431217, 7652982, 1794274, 76287316, 52320687 ####[address] [place] [address] Neutrophils/Leukocytes Auto (Bld) [Pure # fraction] 9.9 E9/L High 2.0-7.5 [facility] Comment on above: Order Comment: Order Added by Discern Expert. Performed By: #### 2 542913, 0436560, 3055195, 48889855, 21034955 ####[facility] [address] [place] [address] BMPon 11-14-2021 Creatinine [Mass/Vol] 0.9 mg/dL Normal 0.5-1.3 [facility] Comment on above: Performed By: #### 2 043697, 9262338, 6856277, 90041927, 82892714 ####[facility] [address] [place] [address] Urea nitrogen [Mass/Vol] 19 mg/dL Normal 5-21 [facility] Comment on above: Performed By: #### 2 371580, 9463843, 5518732, 72615230, 83015960 ####[facility] [address] [place] [address] Urea nitrogen/Creatinine [Mass ratio] 21 No Units High 10-20 [facility] Comment on above: Performed By: #### 2 039533, 6520084, 0429502, 44046326, 50085114 ####[facility] [address] [place] [address] Anion gap [Moles/Vol] 15 mmol/L Normal 6-16 [facility] Comment on above: Performed By: #### 2 321876, 8049538, 8562320, 36350104, 65985063 ####[facility] [address] [place] [address] Calcium [Mass/Vol] 9.9 mg/dL Normal 8.9-11.1 [facility] Comment on above: Performed By: #### 2 359434, 7844907, 9933118, 96437742, 73708702 ####[facility] [address] [place] [address] Chloride [Moles/Vol] 99 mmol/L Low 101-111 [facility] Comment on above: Performed By: #### 2 260228, 7157586, 7408303, 61262726, 45396171 ####[facility] [address] [place] [address] CO2 [Moles/Vol] 22 mmol/L Normal 21-31 [facility] Comment on above: Performed By: #### 2 201697, 1507291, 2336579, 28593374, 27102343 ####[facility] [address] [place] [address] Glucose [Mass/Vol] 101 mg/dL Normal 55-199 [facility] Comment on above: Result Comment: If t his glucose result represents a fasting glucose, interpretation should refer to the following reference range: 55-99 mg/dL Performed By: #### 2 182631, 3269365, 5062815, 60184170, 63012376 ####[facility] [address] [place] [address] Potassium [Moles/Vol] 4.5 mmol/L Normal 3.5-5.3 [facility] Comment on above: Performed By: #### 2 079540, 6193083, 7539066, 78378610, 21637653 ####[facility] [address] [place] [address] Sodium [Moles/Vol] 131 mmol/L Low 135-145 [facility] Comment on above: Performed By: #### 2 753503, 7552372, 6439664, 97613188, 23129352 ####[facility] [address] [place] [address] CBC w/ Auto Diffon Erythrocyte distribution width (RBC) [Ratio] 13.1 % Normal 10.9-14.2 [facility] Comment on above: Performed By: #### 2 742410, 1325883, 1916861, 71497562, 30746591 ####[facility] [address] [place] [address] Hematocrit (Bld) [Volume fraction] 36.1 % Normal 34.0-46.0 [facility] Comment on above: Performed By: #### 2 666022, 1720130, 0259767, 33911726, 36988336 ####[facility] [address] [place] [address] Hemoglobin (Bld) [Mass/Vol] 11.8 g/dL Low 12.0-16.0 [facility] Comment on above: Performed By: #### 2 584007, 9578304, 4984409, 65897532, 60063112 ####[facility] [address] [place] [address] MCH (RBC) [Entitic mass] 29.4 pg Normal 27.0-34.0 [facility] Comment on above: Performed By: #### 2 115921, 1823529, 5440363, 39917198, 53861206 ####[address] [address] MCHC (RBC) [Mass/Vol] 32.7 g/dL Normal 31.4-36.0 [facility] Comment on above: Performed By: #### 2 382355, 1811323, 7710972, 91039814, 19464206 ####[address] [address] MCV (RBC) [Entitic vol] 89.7 fL Normal 80.0-100.0 [facility] Comment on above: Performed By: #### 2 100787, 8352039, 8234651, 33967781, 05856922 ####[facility] [address] [place] [address] Platelet mean volume (Bld) [Entitic vol] 7.5 fL Normal 6.4-10.8 [facility] Comment on above: Performed By: #### 2 126761, 2798288, 7739648, 66173886, 34791267 ####[facility] [address] [place] [address] Platelets (Bld) [#/Vol] 340.0 E9/L Normal 150.0-500.0 [facility] Comment on above: Performed By: #### 2 332636, 9845449, 3940725, 58912108, 62282457 ####[facility] [address] [place] [address] RBC (Bld) [#/Vol] 4.0 E12/L Low 4.3-5.9 [facility] Comment on above: Performed By: #### 2 235752, 0572354, 5034825, 58447861, 68938853 ####[facility] [address] [place] [address] WBC corrected for nucl RBC Auto (Bld) [#/Vol] 12.8 E9/L High 4.0-11.0 [facility] Comment on above: Performed By: #### 2 229245, 3332042, 8324030, 07297520, 27833157 ####[facility] [address] [place] [address] CHEMISTRYOrdered By: SYSTEM SYSTEM on 11-14-2021 Anion gap [Moles/Vol] 15 mmol/L Normal 6 - 16 mEq/L [facility] Calcium [Mass/Vol] 9.9 mg/dL Normal 8.9 - 11. 1 mg/dL [facility] Chloride [Moles/Vol] 99 mmol/L Low 101 - 1 11 mmol/L [facility] CO2 [Moles/Vol] 22 mmol/L Normal 21 - 31 mmol/L [facility] Creatinine [Mass/Vol] 0.9 mg/dL Normal 0.5 - 1.3 mg/dL [facility] GFR/1.73 sq M.predicted among blacks MDRD (S/P/Bld) [Vol rate/Area] mL/min/1.73 m2 Normal >=59mL/min/ 1.73 m2 FT Chem S GFR/1.73 sq M.predicted among non-blacks MDRD (S/P/Bld) [Vol rate/Area] mL/min/1.73 m2 Normal >=59mL/min/ 1.73 m2 [facility] Chem S Glucose [Mass/Vol] 101 mg/dL Normal 55 - 199 mg/dL [facility] Remisol Potassium [Moles/Vol] 4.5 mmol/L Normal 3.5 - 5.3 mmol/L [facility] Remisol Sodium [Moles/Vol] 131 mmol/L Low 135 - 145 mmol/L [facility] Remisol Troponin I.cardiac [Mass/Vol] 12.30 pg/mL Normal 10.10 - 27.10 pg/mL [facility] Remisol Urea nitrogen [Mass/Vol] 19 mg/dL Normal 5 - 21 mg/dL [facility] Remisol Urea nitrogen/Creatinine [Mass ratio] 21 mg/mg High 10 - 20 [facility] Remisol Consent for Treatmenton 10-29 Consent for Treatment [id number]: 127 Normal [facility] ED Clinical Summaryon 2021 ED Clinical Summary Normal [facility] ED Note-Nursingon 11-14-2021 ED Note-Nursing pt came up to nurses station and stated she wanted to go home. pt was asked to stay to sign paperwork and pt ignored the nurse and walked out of the ED with her . ED made aware. Normal [facility] ED Note-Nursing pt arrived to ed fro m home with her c/o fever of 99.5F and persistent cough since monday. pt denies any SOB or CP. pt has been taking robitussin and musinex at home. pt has a non productive cough with clear lung sounds throughout. VSS Normal [facility] ED Note-Physicianon 11-15-19 ED Note-Physician Normal [facility] Comment on above: Result Comment: Elec tronically Signed By: Dodie Lee, Martínez Christianson\.br\Date and Time Signed: 11/14/21 06:46 EDT ED Patient Education Noteon 11-14-2021 ED Patient Education Note Normal [facility] ED Patient Summaryon 022 ED Patient Summary Normal [facility] HEMATOLOGYOrdered By: SYSTEM SYSTEM on 11-14-2021 Basophils/100 WBC (Bld) 0.5 % Normal 0.0 - 2.0 % [facility] HemeAutoSS Basophils/Leukocytes Auto (Bld) [Pure # fraction] [...] E9/L Normal 150. 0 - 500.0 E9/L [facility] HemeAutoSS RBC (Bld) [#/Vol] 4.0 E12/L Low 4.3 - 5.9 E12/L [facility] HemeAutoSS WBC corrected for nucl RBC Auto (Bld) [#/Vol] 12.8 E9/L High 4.0 - 11.0 E9/L [facility] HemeAutoSS Troponin 0 Hr.on 11-14-2021 Troponin I.cardiac [Mass/Vol] 12.30 pg/mL Normal 10.10-27.10 [facility] Comment on above: Result Comment: The 95% CI (Confidence Interval) PPV (Positive Predictive Value) for myocardial infarction in females is 38 pg/mL, in males 51 pg/mL. The results should be used in conjunction with clinical conditions of myocardial infarction.(Access High Sensitivity Troponin I Instructions For Use, Andry Nogacom, November 2017) Performed By: #### 2 587441, 8390194, 6116466, 22768338, 57057986 ####[facility] [address] [place] [address] XR Chest Single Viewon 11-14 XR Chest Single View Normal [facility] eGFRon 11-14-2021 GFR/1.73 sq M.predicted among blacks MDRD (S/P/Bld) [Vol rate/Area] mL/min/{1.73_m2} Normal >=59 [facility] Comment on above: Order Comment: Order added by Discern Expert. Result Comment: eGFR is race adjusted. AA=. Performed By: #### 2 497041, 9810283, 2437769, 73475709, 33746428 ####[facility] [address] [place] [address] GFR/1.73 sq M.predicted among non-blacks MDRD (S/P/Bld) [Vol rate/Area] mL/min/{1.73_m2} Normal >=59 [facility] Comment on above: Order Comment: Order added by Discern Expert. Result Comment: Steam Trap Worker quan kidney disease could be indicated at eGFR's of less than 60 mL/min/1.73m2. Kidney failure is indicated at less than 15 mL/min/1.73m2. Performed By: #### 2 763704, 0839806, 7723050, 68405703, 54928167 ####[facility] [address] [place] [address] Ambulatory Visit Summaryon 0 11-10-2021 Ambulatory Visit Summary Normal [facility] Consent for Treatmenton 07- Consent for Treatment [id number] :127 Normal [facility] Family Medicine Office/Clini c Noteon 11-10-2021 Family Medicine Office/Clinic Note Normal [facility] Comment on above: Result Comment: Elec tronically Signed By: TEQUILA POWERS, Echo Mike\kobe\Date and Time Signed: 11/10/21 14:31 EDT MICRO OTHER TESTSOrdered By: Rhett Miranda on 11-10-2021 Rapid COV Int NEG Ctl Pass (11/10/21 2:56 PM) Normal [facility] Man UA SS Rapid COV Int POS Ctl Pass (11/10/21 2:56 PM) Normal [facility] Man UA SS SARS-CoV-2 (COVID-19) RNA ZANDRA+probe Ql (Unsp spec) Not Detected (11/10/21 2:56 PM) Normal Not Detected [facility] Man UA SS Patient Educationon 11-11-19 Patient Education Normal [facility] Rapid COVID Antigen ([facility])on 11-10-2021 Rapid COV Int NEG Ctl Pass Normal [facility] Comment on above: Performed By: #### 2 [id number] ####[facility] [address] [place] [address] Rapid COV Int POS Ctl Pass Normal [facility] Comment on above: Performed By: #### 2 [id number] ####[facility] [address] [place] [address] SARS-CoV-2 (COVID-19) RNA ZANDRA+probe Ql (Unsp spec) Not detected Normal Not Detected [facility] Comment on above: Result Comment: The Vontuitor? System for Rapid Detection of SARS-CoV-2 is [...] or revoked sooner. Performed By: #### 2 [id number] ####[facility] [address] [place] [address] Employed in Healthcare NO Normal Fi [facility] Comment on above: Performed By: #### 2 [id number] ####[facility] [address] [place] [address] First Test Unknown Normal [facility] Comment on above: Performed By: #### 2 [id number] ####[facility] [address] [place] [address] Hospitalized? NO Normal [facility] Comment on above: Performed By: #### 2 [id number] ####[facility] [address] [place] [address] ICU NO Normal [facility] Comment on above: Performed By: #### 2 [id number] ####[facility] [address] [place] [address] ? NO Normal [facility] Comment on above: Performed By: #### 2 [id number] ####[facility] [address] [place] [address] [facility] NO Normal [facility] Comment on above: Performed By: #### 2 [id number] ####[facility] [address] [place] [address] Symptomatic as defined by CDC YES Normal [facility] Comment on above: Performed By: #### 2 [id number] ####[facility] [address] [place] [address] BUNon 08-11-2021 Urea nitrogen [Mass/Vol] 24.0 mg/dL Critically high 7.0-18.0 [facility] Comment on above: Performed By: #### B UN, CREA #### [facility] [address] [place] [address] Dr. Román Frausto CREATININEon 08-11-2021 Creatinine [Mass/Vol] 1.15 mg/dL Critically high 0.52-1.04 [facility] Comment on above: Performed By: #### B UN, CREA #### [facility] [address] [address] [address] Román Frausto EGFR-AF ROMANIAN 56 mL/min/1.73m2 Critically low >=60 [facility] Comment on above: Performed By: #### B UN, CREA #### [facility] [address] [address] [address] Román Frausto EGFR-NON AF ROMANIAN 46 mL/min/1.73m2 Critically low >=60 [facility] Comment on above: Performed By: #### B REBECA RUBALCAVA #### [facility] [address] [address] [address] Román Frausto CT LSPINE WO W CONon 022 CT LSPINE WO W CON EXAMINATION: CT TSPI NE WO W CON, CT LSPINE WO W CON HISTORY: Secondary malignant neoplasm of bone COMPARISON: No relevant comparison available. FINDINGS: BONES: T5-6: Prominent sclerosis and anterior margin of the contiguous endplates suspected secondary to byjq-pg-ivev contact and degenerative changes. T7: Complete loss [...] by: PIEDAD LAUREANO Date: 2021-08-11 10:[address] [facility] ANES POSTPROC EVALon 021 ANES POSTPROC EVAL HNO ID: [id number] Author: Isabel Tirado MD Service: Anesthesiology Author [...] December 03, 2020 TIME: 11:29 AM CSN: [id number] [facility] ANES PRE-OPon 12-03-2020 ANES PRE-OP HNO ID: [id number] Author: Isabel Tirado MD Service: Anesthesiology Author [...] December 03, 2020 TIME: 10:09 AM CSN: [id number] Normal [facility] HISTORY PHYSICALon HISTORY PHYSICAL HNO ID: [id number] Author: Marty Mcmanus MD Service: General Surgery Author Type: Physician Type: HANDP Filed: 12/03/2020 9:13 AM Note Text: Here for EGD PE: HEENT: PERRLA Neck: supple Chest: Clear Heart:RRR Abdomen: Benign Neuro: wnl Back, spine, extremities: wnl Normal [facility] Basic Metabolic Panlon 12-02 Anion gap [Moles/Vol] 10 mmol/L Normal 9-18 [facility] Calcium [Mass/Vol] 10.2 mg/dL Normal 8.5-10.2 [facility] Chloride [Moles/Vol] 103 mmol/L Normal 97-105 [facility] CO2 [Moles/Vol] 25 mmol/L Normal 22-30 [facility] Creatinine [Mass/Vol] 0.88 mg/dL Normal 0.58-0.96 [facility] eGFR- Amer. >60 Normal [facility] eGFR-All Other Races >60 [facility] Comment on above: Result Comment: eGFR (Estimated [...] GFR. Glucose [Mass/Vol] 85 mg/dL Normal 74-99 [facility] Comment on above: Result Comment: The [place] Diabetes Association (ADA) provides guidance for cutoff [...] Standards of Medical Care in Diabetes 2016, [place] Diabetes Association. Diabetes Care. 2016.39(Suppl 1). Potassium [Moles/Vol] 4.8 mmol/L Normal 3.7-5.1 [facility] Sodium [Moles/Vol] 138 mmol/L Normal 136-144 [facility] Urea nitrogen [Mass/Vol] 24 mg/dL High 7-21 [facility] HISTORY PHYSICALon HISTORY PHYSICAL HNO ID: [id number] Author: Sherin Ham APRN.PUBLIC HEALTH TEACHER Service: ? Author Type: Nurse Specialist Type: [...] No history of TIA's, stroke, PUBLIC HEALTH TEACHER tumor, impaired sensorium, hemiplegia, paraplegia or quadraplegia. No neurological symptoms or problems. Respiratory: No history of current cough or dyspnea, or pneumonia in the past 6 weeks. No history of respiratory/pulmonary symptoms or problems. Cardiovascular: H/O Nonischemic Congestive Cardiomyopathy Positive for: AICD/PPM (Miralupa placed originally 2013 recent check scanned 10/25/20), CHF (in the past ) and hyperlipidemia (takes med) GI: Recent dysphagia : H/O Gout PREPARER SAMPLES AND REPAIRS: Negative for abnormal vaginal bleeding, abnormal vaginal [...] ICD (implantable cardioverter-defibrillat or) in place 2015 [employer] - Neuropathy - Nonischemic congestive cardiomyopathy (HCC) - Other hyperlipidemia PAST SURGICAL HISTORY Procedure Laterality Date - CHOLECYSTECTOMY - COLONOSCOPY - EGD - FOOT SURGERY HX Left some excess bones removed - KNEE ARTHROSCOPY Right - MASTECTOMY HX Right FAMILY HISTORY Problem Relation Age of Onset - Diabetes Mother - Hypertension Mother - other (AK) Father - Cancer Sister Social History Tobacco [...] fluvoxaMINE (SURINDER (more content not included)... Normal [facility] Shahram 11-20-2020 [facility] Telephone ([employer]) -------- YENNY FELIX ([id number]) 1945 [employer] [employer]* Date Time Provider Department 11/20/20 MARTY MCMANUS During your visit today, we recorded the following information about you: Ema Hua RN 11/20/2020 2:12 PM Signed Date/Provider 12/03/20 Tisha Procedure:EGD Facility:[facility] Prep ordered:None Knowledge of prep instructions:yes Diabetic:no Blood Thinners:Xarelto- pt stated that she has permission from her generator rebuilder to hold this medication prior to her [...] Status:Closed by EMA HUA RN on 11/20/20 [facility] CNOVmaria a 07-28-2020 CNOV Office Visit ([facility] ) -------- YENNY FELIX ([id number]) 1945 F Date Time Provider Department 07/28/20 4:00 PM EVENS OROPEZA ([facility]) OTOL[facility] During your visit today, we recorded the following information about you: Temperature Pulse Respiration 98.4 degrees 60/minute 16/minute Evens Oropeza APRN.CNP 07/28/2020 5:10 PM Signed Ms. Felix [...] was normal. (more content not included)... Normal [facility] CNOVon 07-03-2020 CNOV Office Visit (LOORRM ) -------- YENNY FELIX ([id number]) 1945 F Date Time Provider Department 07/03/20 [...] Diagnosis Date - CHF (congestive heart failure) ([facility]) - History of bilateral breast cancer - [...] redness Date Reviewed: 07/03/2020 Reviewed by: Eugenie Del Valle - Fully Assessed Reason for Visit: Follow Up [171] Established Patient [175] Knee Pain [132] Injections [199] Established Patient [175] Follow Up [171] Knee Pain [132] Injections [199] Primary Visit Diagnosis:Primary osteoarthritis of both knees [M17.0] Order(s):Large Joint Arthro/Inj: bilateral knee joints [TRK788] Order #: [id number] [] lidocaine (PF) 10 mg/mL (1 %) 4 mL injection (XYLOCAINE)Disp: Rfl: [] triamcinolone acetonide 40 mg (more content not included)... Normal [facility] XR Knee - bilateral 4 Viewso n 01-08-2020 IMPRESSION: Osteoarthritis right knee, severe in the lateral compartment. Osteoarthritis left knee, moderate in the lateral compartment. Research Intern: PSCB Transcribe Date/Time: Jan 08 2020 9:46A Dictated by : LAISHA NUÑEZ MD This examination was interpreted and the report reviewed and electronically signed by: LAISHA NUÑEZ MD on Jan 08 2020 9:47AM [facility] DIVISION OF RADIOLOGY * * *Final Report* * * DATE OF EXAM: Jan 08 2020 9:20AM LZX 5618 - XR KNEE 4V AP/PA/LAT/[facility] SUZY / PROCEDURE REASON: Pain * * * * Physician Interpretation * * * * X-RAYS BILATERAL KNEES HISTORY: bilateral knee pain. Pain TECHNIQUE: 4 views of each knee. COMPARISON: None RESULT: Tricompartmental osteoarthritis bilateral knees and chondrocalcinosis. Findings are severe in the lateral compartment of the right knee and moderate in the lateral compartment of left knee. No fracture or significant joint effusion involving either knee. DIVISION OF RADIOLOGY Provider, [facility] - 01/08/2020 * * *Final Report* * * DATE OF EXAM: Jan 08 2020 9:20AM LZX 5618 - XR KNEE 4V AP/PA/LAT/[facility] SUZY / PROCEDURE REASON: Pain * * * * Physician Interpretation * * * * X-RAYS BILATERAL KNEES HISTORY: bilateral knee pain. Pain TECHNIQUE: 4 views of each knee. COMPARISON: None RESULT: Tricompartmental osteoarthritis bilateral knees and chondrocalcinosis. Findings are severe in the lateral compartment of the right knee and moderate in the lateral compartment of left knee. No fracture or significant joint effusion involving either knee. IMPRESSION IMPRESSION: Osteoarthritis right knee, severe in the lateral compartment. Osteoarthritis left knee, moderate in the lateral compartment. Research Intern: MIGUELITO Transcribe Date/Time: Jan 08 2020 9:46A Dictated by : LAISHA NUÑEZ MD This examination was interpreted and the report reviewed and electronically signed by: LAISHA NUÑEZ MD on Jan 08 2020 9:47AM EST [facility] Radiology Study observation (narrative) [facility] XR Knee - bilateral 4 ViewsO rdered By: Ccf Provider on 01-08-2020 [facility] History and Physicalon 03-27 HIM IP Note OR Global Project Manager Normal [facility] Surgical Pathologyon 017 Surgical Pathology (NOTE)[id number] Y LABORATORIESCONSULTING PATHOLOGISTS [facility] EMERGENCY DEPARTMENTANATOMIC [id number] [place], [place] [id number] Fax: SURGICAL PATHOLOGY CONSULTATIONPatient Name: Miroslava FELIX Rec: [id number] Number: [id number]: 03/27/2017Received: 03/27/2017Reported: 03/28/2017 09:51-- Diagnosis --1. COLON, RANDOM BIOPSIES:- NORMAL COLONIC MUCOSA.2. COLON, BIOPSIES:- ADENOMATOUS POLYP.Zack Rand,Electronically Signed Out sls03/28/2017Clinical InformationPre-op Diagnosis: FECAL OCCULT BLOOD Operative Findings: RANDOM COLON BX'S; COLON POLYPOperation Performed: COLONOSCOPY WITH BIOPSY Source of Specimen1: RANDOM COLON BX'S2: COLON POLYPGross Description1. YENNY FELIX RANDOM COLON BX'S Multiple ely-white tissuefragments from 0.2 to 0.3 cm and are 2.4 x 0.2 x 0.1 cm in aggregate. Entirely 1cs. 2. YENNY FELIX, COLON POLYP Two ely tissue fragments, 0.3 to 0.4cm and are 0.7 x 0.3 x 0.2 cm in aggregate. Entirely 1cs. rh tmMicroscopic Description1. The mucosal architecture is normal. There is no evidence ofactive inflammation, granulomatous inflammation, ulcer, dysplasia ormalignancy.2. The biopsies demonstrate adenomatous polyp. Normal [facility] Vital Signs Date Time Vital Sign Value Performing Clinician Todd munguia 02-01-2024 10:08-0400 Body height 175.3 cm Rambo Ansley DO Work Phone: [facility] 02-01-2024 10:08-0400 Body mass index (BMI) [Ratio] 32.77 kg/m2 Rambo Ansley DO Work Phone: [facility] 02-01-2024 10:08-0400 Body weight 100.7 kg Rambo Ansley DO Work Phone: [facility] 02-01-2024 10:08-0400 Diastolic blood pressure 82 mm[Hg] Rambo Ansley DO Work Phone: [facility] 02-01-2024 10:08-0400 Heart rate 70 /min Rambo Ansley DO Work Phone: [facility] 02-01-2024 10:08-0400 SaO2% (BldA) [Mass fraction] 94 % Rambo Ansley DO Work Phone: [facility] 02-01-2024 10:08-0400 Systolic blood pressure 110 mm[Hg] Rambo Ansley DO Work Phone: [facility] 07-11-2023 13:37-0400 Body height 175.3 cm Rambo Ansley DO Work Phone: [facility] 07-11-2023 13:37-0400 Body mass index (BMI) [Ratio] 33.82 kg/m2 Rambo Ansley DO Work Phone: [facility] 07-11-2023 13:37-0400 Body weight 103.87 kg Rambo Ansley DO Work Phone: [facility] 07-11-2023 13:37-0400 Diastolic blood pressure 90 mm[Hg] Rambo Ansley DO Work Phone: [facility] 07-11-2023 13:37-0400 Heart rate 70 /min Rambo Ansley DO Work Phone: [facility] 07-11-2023 13:37-0400 SaO2% (BldA) [Mass fraction] 100 % Rambo Ansley DO Work Phone: [facility] 07-11-2023 13:37-0400 Systolic blood pressure 152 mm[Hg] Rambo Ansley DO Work Phone: [facility] 06-21-2023 11:54-0500 Body height 173.99 cm MD Tika Joy Work Phone: [facility] 06-21-2023 11:54-0500 Body mass index (BMI) [Ratio] 34.4 kg/m2 MD Tika Joy Work Phone: [facility] 06-21-2023 11:54-0500 Body weight 104.32 kg MD Tika Joy Work Phone: [facility] 10-04-2022 09:29-0400 Blood Pressure Location Aron Exploredge [facility] 10-04-2022 09:29-0400 Diastolic blood pressure 81 mm[Hg] Aron Exploredge [facility] 10-04-2022 09:29-0400 Heart rate 65 /min Aron Explored[facility] 10-04-2022 09:29-0400 Systolic blood pressure 184 mm[Hg] Aron COOK [facility] 04-19-2022 09:29-0500 Blood Pressure Location Aron [facility]ored[facility] 04-19-2022 09:29-0500 Diastolic blood pressure 82 mm[Hg] Aron Exploredge [facility] 04-19-2022 09:29-0500 Heart rate 77 /min Aron HANCOCK [facility] 04-19-2022 09:29-0500 Systolic blood pressure 132 mm[Hg] Aron HANCOCK [facility] 04-11-2022 14:24-0500 Blood Pressure Location Wilfred [facility] 04-11-2022 14:24-0500 Diastolic blood pressure 59 mm[Hg] Wilfred [facility] 04-11-2022 14:24-0500 Heart rate 71 /min Wilfred [facility] 04-11-2022 14:24-0500 Respiratory rate 18 /min Wilfred [facility] 04-11-2022 14:24-0500 SaO2% (BldA) [Mass fraction] 96 % [facility]fred [facility] 04-11-2022 14:24-0500 Systolic blood pressure 119 mm[Hg] Wilfred [facility] 03-28-2022 15:29-0500 Hourly Rounding Kris MARIIA [facility] 03-28-2022 15:29-0500 Promise to Return Kris MARIIA [facility] 03-28-2022 14:29-0500 Hourly Rounding Kris MARIIA [facility] 03-28-2022 14:29-0500 Promise to Return Kris MARIIA [facility] 03-28-2022 13:14-0500 Hourly Rounding Kris MARIIA [facility] 03-28-2022 13:14-0500 Promise to Return Kris MARIIA [facility] 03-28-2022 11:17-0500 Diastolic blood pressure 88 mm[Hg] Kris MARIIA [facility] 03-28-2022 11:17-0500 Systolic blood pressure 174 mm[Hg] Kris MARIIA [facility] 03-28-2022 11:11-0500 Body temperature 97.52 [degF] Kris MARIIA [facility] 03-28-2022 11:11-0500 Diastolic blood pressure 88 mm[Hg] Kris MARIIA [facility] 03-28-2022 11:11-0500 Heart rate 66 /min Kris MARIIA [facility] 03-28-2022 11:11-0500 Mean blood pressure 117 mm[Hg] Kris MARIIA [facility] 03-28-2022 11:11-0500 SaO2% (BldA) [Mass fraction] 96 % Kris MARIIA [facility] 03-28-2022 11:11-0500 Systolic blood pressure 174 mm[Hg] Kris MARIIA [facility] 03-28-2022 07:49-0500 Body temperature 98.06 [degF] Kris MARIIA [facility] 03-28-2022 07:49-0500 Diastolic blood pressure 81 mm[Hg] Kris MARIIA [facility] 03-28-2022 07:49-0500 Heart rate 79 /min Kris MARIIA [facility] 03-28-2022 07:49-0500 Mean blood pressure 104 mm[Hg] Kris MARIIA [facility] 03-28-2022 07:49-0500 SaO2% (BldA) [Mass fraction] 95 % Kris MARIIA [facility] 03-28-2022 07:49-0500 Systolic blood pressure 151 mm[Hg] Kris MARIIA [facility] 03-28-2022 07:48-0500 Heart rate 80 /min Kris MARIIA [facility] 03-28-2022 07:48-0500 SaO2% (BldA) [Mass fraction] 96 % Krisngoc OROPEZASLIN [facility] 03-28-2022 01:00-0500 Body temperature 98.06 [degF] Krisngoc OROPEZASLIN [facility] 03-28-2022 01:00-0500 Mean blood pressure 105 mm[Hg] Kris[facility]oc OROPEZAS[facility] 03-28-2022 01:00-0500 Respiratory rate 17 /min Kris[facility]oc [facility] 03-27-2022 23:09-0500 FIO2 40 % [facility] OROPEZASLIN [facility] 03-27-2022 21:00-0500 Mean blood pressure 103 mm[Hg] Kris MARIIA [facility] 03-27-2022 21:00-0500 Respiratory rate 18 /min Kris MARIIA [facility] 03-27-2022 20:05-0500 Mean blood pressure 110 mm[Hg] Kris MARIIA [facility] 03-27-2022 17:48-0500 Blood Pressure Location [facility] 03-27-2022 17:48-0500 BP/Pulse Patient Position [facility] 03-27-2022 17:48-0500 Mean blood pressure 101 mm[Hg] [facility] 03-27-2022 15:53-0500 Respiratory rate 16 /min Kris[facility]oc [facility] 03-23-2022 14:00-0500 Respiratory rate 19 /min Kris MARIIA [facility] 03-23-2022 04:27-0500 Heart rate 71 /min Krisngoc [facility] 03-23-2022 04:00-0500 Respiratory rate 11 /min Kris MARIIA [facility] 03-23-2022 03:00-0500 Respiratory rate 18 /min Kris MARIIA [facility] 03-23-2022 00:48-0500 gluc 112 mg/dL Kris MARIIA [facility] 03-23-2022 00:48-0500 gluc Kris MARIIA [facility] 03-23-2022 00:46-0500 Heart rate 83 /min Kris MARIIA [facility] 11-14-2021 01:00-0400 Body temperature 98.42 [degF] [facility] 11-14-2021 01:00-0400 Diastolic blood pressure 70 mm[Hg] [facility] 11-14-2021 01:00-0400 Heart rate 73 /min [facility] 11-14-2021 01:00-0400 Mean blood pressure 92 mm[Hg] [facility] 11-14-2021 01:00-0400 Respiratory rate 19 /min [facility] 11-14-2021 01:00-0400 SaO2% (BldA) [Mass fraction] 99 % [facility] 11-14-2021 01:00-0400 Systolic blood pressure 135 mm[Hg] [facility] 11-14-2021 00:00-0400 Body temperature 98.6 [degF] [facility] 11-14-2021 00:00-0400 Diastolic blood pressure 67 mm[Hg] [facility] 11-14-2021 00:00-0400 Heart rate 72 /min [facility] 11-14-2021 00:00-0400 Mean blood pressure 86 mm[Hg] [facility] 11-14-2021 00:00-0400 Systolic blood pressure 123 mm[Hg] [facility] 11-13-2021 23:00-0400 Diastolic blood pressure 78 mm[Hg] [facility] 11-13-2021 23:00-0400 Heart rate 70 /min [facility] 11-13-2021 23:00-0400 Respiratory rate 18 /min [facility] 11-13-2021 23:00-0400 SaO2% (BldA) [Mass fraction] 98 % [facility] 11-13-2021 23:00-0400 Systolic blood pressure 120 mm[Hg] [facility] Encounters Encounter Date Encounter Type Care Provider Facility Start: 02-21-2024 End: 02-21-2024 Jennifer Brandt APRN-BREWERY TECHNICIAN Work Phone: [facility] Comment on above: Med Refill Start: 02-20-2024 End: 02-20-2024 Telephone encounter Adrian Purcell [employer]PER[employer] Work Phone: [facility] Comment on above: CT SCAN FYI Start: 02-16-2024 End: 02-16-2024 Orders Only Alexa Serna GUIDE SETTER-BREWERY TECHNICIAN Work Phone: [facility] Comment on above: Chronic combined sys tolic and diastolic congestive heart failure (CMS-HCC); Persistent atrial fibrillation (CMS-HCC); Nonischemic congestive cardiomyopathy (CMS-HCC); Benign essential hypertension; Left bundle branch block (LBBB); Automatic implantable cardioverter-defibrillator in situ [employer] Start: 02-01-2024 End: 02-01-2024 Office outpatient visit 25 minutes Rambo Pearsonries DO Work Phone: [facility] Comment on above: Persistent atrial fi brillation (CMS-HCC) (Primary Dx); 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); Left bundle branch block (LBBB) Start: 02-01-2024 End: 02-01-2024 ambulatory [facility] Comment on above: Automatic implantabl e cardioverter-defibrillator in situ [employer] (Primary Dx) Start: 01-30-2024 End: 01-30-2024 Orders Only Alexa Serna GUIDE SETTER-BREWERY TECHNICIAN Work Phone: [facility] Comment on above: Chronic systolic con gestive heart failure (CMS-HCC) (Primary Dx); Paroxysmal atrial fibrillation ([facility]-HCC) Start: 01-24-2024 End: 01-24-2024 ambulatory ADRIAN PURCELL Not Available Start: 01-02-2024 End: 01-02-2024 ambulatory [facility] Start: 12-26-2023 End: 12-26-2023 ambulatory ADRIAN PURCELL Not Available Start: 12-25-2023 ambulatory [facility] Start: 12-20-2023 End: 12-20-2023 ambulatory [facility] Start: 12-20-2023 End: 12-20-2023 ambulatory DANIEL FERRER [facility] Start: 11-21-2023 End: 11-21-2023 ambulatory [facility] Start: 11-01-2023 End: 11-01-2023 ambulatory ADRIAN PURCELL Not Available Start: 10-18-2023 End: 10-18-2023 ambulatory [facility] Start: 10-12-2023 End: 10-12-2023 ambulatory YOSEPH Nelson [facility] Start: 08-22-2023 End: 08-22-2023 ambulatory ADRIAN PURCELL Not Available Start: 07-11-2023 End: 07-11-2023 Office outpatient visit 25 minutes Rambo Duke DO Work Phone: [facility] Comment on above: Cardiomyopathy (Prim jian Dx); Persistent atrial fibrillation (CMS-HCC); Chronic systolic heart failure (CMS-HCC); Left bundle branch block (LBBB) Start: 07-11-2023 End: 07-11-2023 ambulatory RAMBO [facility] Start: 07-10-2023 Telephone encounter Kay Ann CMA [facility] Comment on above: Appointment Start: 06-26-2023 End: 06-26-2023 ambulatory [facility] Comment on above: 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, mild stage Start: 06-21-2023 End: 06-21-2023 ambulatory Jose Francisco Tong II Facility:[facility] Start: 06-21-2023 End: 06-21-2023 ambulatory MD Tika Joy Work Phone: [facility] Work Phone: Start: 06-21-2023 End: 06-21-2023 Patient encounter procedure MD Tika Joy Work Phone: [facility] Work Phone: Start: 05-06-2023 Refill Myron Anderson sser GUIDE SETTER-BREWERY TECHNICIAN Work Phone: [facility] Comment on above: Med Refill Start: 02-14-2023 End: 02-14-2023 ambulatory ZAC Mark SAMMIE [facility] Start: 12-13-2022 End: 12-13-2022 Emergency department patient [facility] Start: 10-04-2022 End: 10-05-2022 ambulatory Aron HANCOCK Facility:[facility] Start: 10-04-2022 End: 10-04-2022 Patient encounter procedure Aron HANCOCK [facility] Start: 10-03-2022 ambulatory BREWERY TECHNICIAN Echo Moreno ity:[facility] Start: 09-30-2022 End: 09-30-2022 ambulatory Tika Joy Facility:[facility] Start: 09-30-2022 End: 09-30-2022 ambulatory MD Tika Joy Work Phone: [facility] Work Phone: Start: 09-30-2022 End: 09-30-2022 Patient encounter procedure MD Tika Joy Work Phone: [facility] [place] Work Phone: Start: 04-19-2022 End: 04-20-2022 ambulatory Aron HANCOCK Facility:[facility] Start: 04-19-2022 End: 04-19-2022 Patient encounter procedure Aron HANCOCK [facility] Start: 04-11-2022 End: 04-12-2022 ambulatory Wilfred London Facility:[facility] Start: 04-11-2022 End: 04-11-2022 Patient encounter procedure Wilfred London [facility] Start: 03-23-2022 End: 03-28-2022 Evaluation and management of inpatient Saran Dodge Facility:[facility] Start: 03-23-2022 End: 03-28-2022 Evaluation and management of inpatient Kris CHIANG [facility] Start: 01-07-2022 End: 01-08-2022 ambulatory [facility] Start: 01-07-2022 End: 01-07-2022 Subsequent hospital visit by physician Tika Joy MD Work Phone: [facility] Start: 12-20-2021 End: 12-21-2021 ambulatory [facility] Start: 12-20-2021 End: 12-20-2021 Subsequent hospital visit by physician Tika Joy MD Work Phone: [facility] Start: 11-14-2021 End: 11-14-2021 Emergency department patient visit Martínez Meghan Dodie Facility:[facility] Start: 11-13-2021 End: 11-14-2021 Emergency department patient visit [facility] Meghan Dodie [facility] Start: 11-10-2021 End: 02-09-2022 ambulatory GIO MANDEL Facility:[facility] Start: 11-10-2021 End: 02-08-2022 Recurring Echo MANDEL [facility] Start: 08-11-2021 End: 08-12-[address] PIEDAD LAUREANO Facility: Start: 01-08-2020 End: 01-08-2020 Subsequent hospital visit by physician Makayla Galarza 1 Work Phone: Radiology Comment on above: Pain [R52] Start: 01-07-2020 End: 01-07-2020 Orders Only Martin Gibson Work Phone: Orthopaedics Comment on above: Pain (Primary Dx) Start: 03-27-2017 End: 03-27-2017 Ambulatory ZAC COCHRAN [facility] Procedures Date Procedure Procedure Detail Performing [...] total Tika Joy MD Work Phone: Start: 01-08-2020 Radiologic exam knee complete 4/more views Martin Gibson MD Work Phone: Start: 03-27-2017 SURGICAL PATHOLOGY [place] Delfino COCHRAN Start: 03-27-2017 DISCHARGE PATIENT ZAC COCHRAN Start: 03-27-2017 SURGICAL PATHOLOGY [place] COCHRAN Start: 03-27-2017 Colonoscopy Tika stockton MD Work Phone: Simple mastectomy Martínez stewart Plan of Treatment Date Care Activity Detail Author Start: 03-27-2027 Screening for malign ant neoplasm of colon [facility] Start: 01-31-2025 Adult BMI Screening Adult BMI Screen ing [facility] Start: 01-31-2025 Tobacco Screening Tobacco Screening [facility] Start: 01-01-2025 Adult BMI Screening Adult BMI Screen ing [facility] Start: 01-01-2025 Tobacco Screening Tobacco Screening [facility] Start: 07-10-2024 Adult BMI Screening Adult BMI Screen ing [facility] Start: 07-10-2024 Tobacco Screening Tobacco Screening [facility] Start: 06-26-2024 Tobacco Screening Tobacco Screening [facility] Start: 06-24-2024 End: 06-24-2024 Patient encounter procedure 06/24/2024 11:10 AM EST [facility] [address] [place] [phone] Daniel Ferrer, OD [address] [place] [address] [facility] Start: 06-24-2024 End: 06-24-2024 ambulatory 06/24/2024 10:40 AM EST Ophthalmology Imaging [facility] [address] [place] [address] [facility] Start: 03-19-2024 End: 03-19-2024 Patient encounter procedure 03/19/2024 4:20 PM EST Office Visit [facility] [address] [place] [address] Adrian Purcell, SHARRI [address] [address] [facility] Start: 02-23-2024 End: 02-15-2025 Potassium [Moles/volume] in Serum or Plasma Potassium Lab Routine Chronic combined systolic and diastolic congestive heart failure ([facility]-HCC) Expected: 02/23/2024 (Approximate), Expires: 02/15/2025 [facility] Work Phone: Comment on above: Expected: 02/23/2024 (Approximate), Expires: 02/15/2025 Start: 02-06-2024 End: 01-29-2025 Basic metabolic 2000 panel - Serum or Plasma Basic Metabolic Panel Lab Routine Paroxysmal atrial fibrillation ([facility]-HCC) Chronic systolic congestive heart failure (CMS-HCC) Expected: 02/06/2024 (Approximate), Expires: 01/29/2025 [facility] Work Phone: Comment on above: Expected: 02/06/2024 (Approximate), Expires: 01/29/2025 Start: 02-01-2024 End: 01-31-2025 Device Interrogation Device Interrogation Cardiac Services Routine Persistent atrial fibrillation (CMS-HCC) 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) Left bundle branch block (LBBB) Expected: 02/01/2024, Expires: 01/31/2025 [employer] Work Phone: Comment on above: Expected: 02/01/2024 , Expires: 01/31/2025 Start: 02-01-2024 End: 02-01-2024 Clinical Support [facility] Start: 01-20-2024 Adult BMI Screening Adult BMI Screen ing [facility] Start: 01-20-2024 Tobacco Screening Tobacco Screening [facility] Start: 12-31-2023 Covid-19 Vaccine () Covid-19 Vaccine () [facility] Start: 12-31-2023 COVID-19 Vaccine () COVID-19 Vaccine () [facility] Start: 12-31-2023 Influenza vaccination [facility] Start: 12-20-2023 End: 12-20-2023 Patient encounter procedure 12/20/2023 11:10 AM EDT Office Visit [facility] [address] [place] [phone] Daniel Ferrer, OD [address] [place] [address] [facility] Start: 12-20-2023 End: 12-20-2023 ambulatory 12/20/2023 10:40 AM EDT Ophthalmology Imaging [facility] [address] [place] [phone] [facility] Start: 12-03-2023 Diabetes Screening Diabetes Screenin g [facility] Start: 07-11-2023 End: 07-11-2023 Patient encounter procedure 07/11/2023 1:45 PM EDT Office Visit [facility] [address] [place] [phone] Rambo Duke, DO [address] [facility] [place] [address] [facility] Start: 05-15-2023 End: 05-15-2023 Patient encounter procedure 05/15/2023 11:10 AM EST Office Visit [facility] [address] [place] [phone] Daniel Ferrer, OD [address] [place] [address] [facility] Start: 05-15-2023 End: 05-15-2023 ambulatory 05/15/2023 10:40 AM EST Ophthalmology Imaging [facility] [address] [place] [phone] [facility] Start: 05-01-2023 Advance Directive Discussion Advance Directive Discussion [facility] Start: 12-30-2022 COVID-19 Vaccine ( season) COVID-19 Vaccine ( season) [facility] Start: 12-24-2022 Lipid panel Lipids [facility] Start: 2022 RSV Vaccine (1 - 1-d ose 75+ series) RSV Vaccine (1 - 1-dose 75+ series) [facility] Start: 12-30-2021 Influenza vaccination Flu vaccine (# 1) [facility] Start: 12-31-2019 Influenza vaccination INFLUENZA (#1) [facility] Start: 2012 ADVANCE DIRECTIVE DISCUSSION ADVANCE DIRECTIVE DISCUSSION [facility] Start: 2012 BONE DENSITY BONE DENSITY [facility] Start: 2012 Fall Risk Screening Fall Risk Screen ing [facility] Start: 2012 PNEUMOVAX AGE 65 AND OVER WITH 5YR LOOKBACK (#1) PNEUMOVAX AGE 65 AND OVER WITH 5YR LOOKBACK (#1) [facility] Start: 2012 Screening for osteoporosis Bone Density Screening [facility] Start: 04-14-2012 DTaP,Tdap and Td Vac cines (1 - Tdap) DTaP,Tdap and Td Vaccines (1 - Tdap) [facility] Start: 04-14-2012 DTaP/Tdap/Td vaccine (1 - Tdap) DTaP/Tdap/Td vaccine (1 - Tdap) [facility] Start: 04-14-2012 Urine microalbumin profile DTaP,Tdap,Td Vaccine (1 - Tdap) [facility] Start: 2002 Screening for osteoporosis DEXA (modify frequency per FRAX score) [facility] Start: 1997 Screening for malign ant neoplasm of breast Breast cancer screen [facility] Start: 1997 SHINGRIX VACCINE (1 of 2) ALEMAN GRIX VACCINE (1 of 2) [facility] Start: 1997 Tuberculosis screening COLOREC CRISTINE CANCER SCREENING,SEE MODIFIER [facility] Start: 1992 DIABETES SCREEN DIABETES SCREEN [facility] Start: 1992 LIPID SCREEN LIPID SCREEN [facility] Start: 1992 Screening for malign ant neoplasm of colon [facility] Start: 1987 Mammography MAMMOGRAM [facility] Start: 1966 DTaP/Tdap/Td vaccine (1 - Tdap) DTaP/Tdap/Td vaccine (1 - Tdap) [facility] Start: 1966 Urine microalbumin profile DTAP,TDAP,TD (1 - Tdap) [facility] Start: 1965 Adult BMI Follow Up Plan Adult BMI F ollow Up Plan [facility] Start: 1965 Anxiety Screening Anxiety Screening [facility] Start: 1965 Depression Screening Depression Scre ing [facility] Start: 1965 [facility]IT[facility] C screening B ON [facility] Start: 1959 Depression Screen Depression Screen [facility] Start: 1959 Depression Screening Depression Scre ening [facility] Start: 1945 COVID-19 Vaccine (#1) COVID-19 Vacci ne (#1) [facility] Start: 1945 Medicare Annual Well ness Visit Medicare Annual Wellness Visit [facility] Electrophoresis Prot ein, Serum Electrophoresis Protein, Serum Lab Routine 01/07/2022 11:01 AM EDT CINTHIA SELWYN [employer] Work Phone: End: 02-05-2021 Radiologic exam knee complete 4/more views XR KNEE GENERAL 4V AP BOTH/PA BOTH/LAT/MERC BILAT Radiology Routine Pain 1 Occurrences starting 01/07/2020 until 02/05/2021 [facility] Comment on above: 1 Occurrences starti ng 01/07/2020 until 02/05/2021 [facility] Immunizations Immunization Date Immunization Notes Care Provider Fa [facility] 02-28-2023 influenza virus vacc ine, unspecified formulation Alexa Serna GUIDE SETTER-BREWERY TECHNICIAN [facility] 02-10-2022 influenza virus vacc ine, unspecified formulation Aron HANCOCK [facility] 07-29-2021 pneumococcal conjuga te vaccine, 13 valent Adrian Purcell 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 MILL SUPERVISOR Work Phone: [facility] 02-28-2021 SARS-CoV-2 (COVID-19 ) mRNA-1273 vaccine Aron HANCOCK [facility] 01-22-2021 influenza virus vacc ine, unspecified formulation Aron HANCOCK [facility] 07-23-2020 SARS-CoV-2 (COVID-19 ) mRNA-1273 vaccine Aron HANCOCK [facility] 06-27-2020 SARS-CoV-2 (COVID-19 ) mRNA-1273 vaccine Aron HANCOCK [facility] Comment on above: Result Comment: 2021: [id number] 02-27-2019 influenza virus vacc ine, unspecified formulation Aron HANCOCK [facility] 08-17-2018 pneumococcal polysaccharide vaccine, 23 valent [facility] 02-13-2018 influenza virus vacc ine, unspecified formulation [facility] 11-30-2017 zoster vaccine recombinant [facility] 08-15-2017 zoster vaccine recombinant [facility] 02-07-2017 influenza virus vacc ine, unspecified formulation [facility] 08-09-2016 pneumococcal conjuga te vaccine, 13 valent [facility] 02-08-2016 influenza virus vacc ine, unspecified formulation [facility] 01-13-2015 influenza virus vacc ine, unspecified formulation [facility] 08-15-2014 pneumococcal conjuga te vaccine, 13 valent [facility] 01-28-2014 influenza virus vacc ine, unspecified formulation [facility] 01-22-2013 influenza virus vacc ine, unspecified formulation [facility] 04-13-2012 Td(adult) unspecifie d formulation [facility] 02-15-2000 influenza virus vacc ine, unspecified formulation [facility] 04-12-1999 influenza virus vacc ine, unspecified formulation Aron HANCOCK [facility] Payers Date Payer Category Payer Unknown [id number] 2022 Self-pay 2019 Unknown MMO MMO MEDICARE SUPPLEMENT [id number] 2019-Present Indemnity [id number] 2016 Medicare [id number] 2015 Commercial Indemnity MEDICAL MUT UAL [id number] 2015 Unknown [id number] [id number] 2012 Medicare MEDICARE MEDICAR E A AND B [id number] 2012-Present [place] Medicare [id number] 2012 Medicare [id number]. [id number] .[id number] 1959 Medicare [id number] 1959 Unknown [id number] 1947 Unknown [id number] 2.16.840.1.944720.3.579.2.5 93 1947 Unknown [id number] 2.16.840.1.134292.3.579.2.7 27 1947 Unknown [id number] 2.16.840.1.203004.3.579.2.7 27 1947 Unknown [id number] 2.16.840.1.708467.3.579.2.7 27 1947 Unknown [id number] 2.16.840.1.987553.3.579.2.7 27 1947 Unknown [id number] 2.16.840.1.300818.3.579.2.7 27 1947 Unknown [id number] 2.16.840.1.335292.3.579.2.7 27 1947 Unknown [id number] 2.16.840.1.013386.3.579.2.7 27 1947 Unknown [id number] 2.16.840.1.543387.3.579.2.7 27 1947 Unknown [id number] 2.16.840.1.894358.3.579.2.1 74 1947 Unknown [id number] 2.16.840.1.562169.3.579.2.1 74 1947 Unknown [id number] 2.16.840.1.353155.3.579.2.1 74 1947 Unknown [id number] 2.16.840.1.586993.3.579.2.1 74 1947 Unknown [id number] 2.16.840.1.078735.3.579.2.1 77 1947 Unknown [id number] 2.16.840.1.840279.3.579.2.1 286 1947 Unknown [id number] 2.16.840.1.422223.3.579.2.1 259 1947 Unknown [id number] 2.16.840.1.389262.3.579.2.1 259 1947 Unknown [id number] 2.16.840.1.086678.3.579.2.1 259 1947 Unknown [id number] 2.16.840.1.649037.3.579.2.1 259 1947 Unknown [id number] 2.16.840.1.350033.3.579.2.1 286 1947 Unknown [id number] 2.16.840.1.548551.3.579.2.1 286 1947 Unknown [id number] 2.16.840.1.909322.3.579.2.1 286 1947 Unknown [id number] 2.16840.1.271020.3.579.2.1 286 1947 Unknown [id number] 2.16840.1.943545.3.579.2.1 286 1947 Unknown [id number] 2.16840.1.832382.3.579.2.1 286 1947 Unknown [id number] 2.16840.1.464674.3.579.2.1 286 1947 Unknown [id number] 2.16840.1.442432.3.579.2.1 286 1947 Unknown [id number] 2.16840.1.422533.3.579.2.1 286 1947 Unknown [id number] 2.16.840.1.865146.3.579.2.1 286 1947 Unknown [id number] 2.16840.1.612623.3.579.2.1 286 1947 Unknown [id number] 2.16840.1.573740.3.579.2.1 286 1947 Unknown [id number] 2.16840.1.012629.3.579.2.1 286 Unknown [id number] 2.16.840.1.469192.3.579.2.5 31 Unknown [id number] 2.16.840.1.061122.3.579.2.5 31 Social History Date Type Detail Facility Tobacco smoking stat [facility] Unknown if ever smoked [facility] Start: 1945 Sex Assigned At Not on file C [facility] Start: 12-08-2019 End: 01-07-2020 Exposure to SARS-CoV-2 (event) Not sure [facility] Tobacco [facility] Comment on above: denies Start: 05-20-2020 End: 01-19-2023 Sex Assigned At Female [facility] Tobacco smoking stat [facility] Tobacco smoking consumption unknown [employer] [employer] [place] Work Phone: Tobacco smoking status No Smokin g Status Entered [facility] Start: 1945 Sex Assigned At Female F [facility] Start: 12-30-2021 End: 10-04-2022 Tobacco smoking status Never smoked tobacco (finding) [facility] Comment on above: denies Start: 12-30-2021 Tobacco use and exposure Smokeless tobacco non-user [facility] Start: 01-19-2023 End: 02-01-2024 Alcohol intake Current drinker of alcohol (finding) [facility] Start: 05-20-2020 End: 01-19-2023 History of Social function [facility] Housing Instability Unknown [facility] Start: 06-04-2020 Alcohol Comment BEER ONE A WEEK [facility] Start: 12-02-2014 Sex Female (finding) [facility] How often to you hav e a drink containing alcohol? 2-4 times a month [facility] How many standard drinks containing alcohol do you have on a typical day? 1 or 2 [facility] Medical Equipment Procedure Code Equipment Code Equipment Origin al Text Equipment Identifier Dates Biv Icd-02/18/2016 [id number] Start: 02-18-2016 Functional Status Date Assessment Result Facility 10-04-2022 Functional Status N/A [facility] 04-19-2022 Functional Status N/A [facility] 04-11-2022 Functional Status N/A [facility] 03-23-2022 Functional Status N/A [facility] 03-23-2022 Functional Status [facility] 11-13-2021 Functional Status N/A [facility] Clinical Notes 07-03-2020 to 02-21-2024 Telephone Encounter - Cheryl Mcleod RN - 02/21/2024 3:43 AM EDTTelephone Encounter - Cheryl Mcleod RN - 02/21/2024 3:43 AM EDTTelephone Encounter - Adrian Purcell NP - 02/20/2024 12:17 PM EDT Note Date & Type Note Facility 02-21-2024 Miscellaneous Notes 02/01/24 ov 02/15/24 BMP 01/02/24 CBC, CMP documented in this encounter [facility] 02-21-2024 Telephone encounter Note 02/01/24 ov 02/15/24 BMP 01/02/24 CBC, CMP [facility] 02-20-2024 Miscellaneous Notes noted PATIENT CALLS TO INFORM YOU THAT SHE DOES NOT WISH TO PROCEED WITH THE CT SCAN AT THIS TIME. SHE DID SCHEDULED A FOLLOW UP APPT ON 03/19 AT 4:20 documented in this encounter [facility] 02-20-2024 Telephone encounter Note noted [facility] 02-20-2024 Telephone encounter Note PATIENT CALLS TO INFORM YOU THAT SHE DOES NOT WISH TO PROCEED WITH THE CT SCAN AT THIS TIME. SHE DID SCHEDULED A FOLLOW UP APPT ON 03/19 AT 4:20 [facility] 02-01-2024 History of Present illness Narrative Yenny Felix Date of visit: 02/01/2024 Date of : 1945 Age: 78 y.o. Patient Active Problem List Diagnosis Automatic implantable cardioverter-defibrillator in situ i[employer]. Cancer ([facility]) Gout Dyslipidemia Dyspnea Edema Dizziness Vertigo Left bundle branch block (LBBB) Benign essential hypertension Nonischemic congestive cardiomyopathy ([facility]) Overweight Atrial fibrillation ([facility]) CHF (congestive heart failure) ([facility]) Hypertension Hyperlipemia Allergies Allergen Reactions Cefaclor Other reaction(s): Intolerance-unknown [...] mouth daily. carvediloL (COREG) 6.25 mg tablet Take 1 tablet in the morning, 2 tablets in the evening 90 tablet 3 cholecalciferol, vitamin D3, 2,000 units tablet Take 1 tablet (2,000 Units total) by mouth in the morning. empagliflozin (JARDIANCE) 10 mg tablet tablet Take 1 tablet (10 mg total) by mouth in the morning. 30 tablet 11 esomeprazole (NexIUM) 20 mg capsule Take 1 capsule (20 mg total) by mouth in the evening. ferrous sulfate 325 (65 FE) mg EC tablet Take 1 tablet (325 mg total) by mouth every other day. furosemide (LASIX) 20 mg tablet Take 1 tablet (20 mg total) by mouth as needed (fluid wt gain). Take 1 tab if fluid wt gain of 3# or more in 1 day or 4-5# in 4 days gabapentin (NEURONTIN) 100 mg capsule Take 1 capsule (100 mg total) by mouth 3 (three) times a day. levothyroxine (SYNTHROID, LEVOTHROID) 50 MCG tablet Take 1 tablet (50 mcg total) by mouth in the morning. loratadine (CLARITIN) 10 mg tablet Take 1 tablet (10 mg total) by mouth as needed for allergies. losartan (COZAAR) 25 mg tablet Take 0.5 tablets (12.5 mg total) by mouth in the morning. magnesium oxide 500 mg tablet Take 1 tablet (500 mg total) by mouth in the morning. eqqigabf-lkub-WK-calcium &mins (THERAGRAN-M) 9 mg iron-400 mcg tablet Take 1 tablet by mouth in the morning. omega-3/dha/epa/dpa/fish oil (OMEGA-3 2100 ORAL) Take by mouth 2 (two) times a day. sertraline (ZOLOFT) 25 mg tablet Take 1 tablet (25 mg total) by mouth in the morning. simvastatin (ZOCOR) 40 mg tablet Take 1 tablet (40 mg total) by mouth nightly. spironolactone (ALDACTONE) 25 mg tablet Take 1 tablet (25 mg total) by mouth in the morning. 90 tablet 2 timolol (TIMOPTIC) 0.5 % ophthalmic solution Administer 1 drop to both eyes in the morning and 1 drop before bedtime. 15 mL 3 XARELTO 20 mg tablet tablet TAKE 1 TABLET(20 MG) BY MOUTH IN THE MORNING 30 tablet 9 L.acid/B.bifidum/B.animal/FOS (PROBIOTIC COMPLEX ORAL) Take by mouth daily. (Patient not taking: Reported on 02/01/2024) No current facility-administered medications for this visit. Chief Complaint Patient presents with Device Check Follow-up 6MO W/DEVICE, SCHED W/PT History of Present Illness Yenny was seen today for follow-up of her chronic systolic heart failure and nonischemic cardiomyopathy. She has underlying complete heart block and has a ICD device. She is here for device check. She has not any recent orthopnea or paroxysmal nocturnal dyspnea. She does get short of breath with increased activity. She has done well with goal-directed medical therapy, and takes furosemide on an as-needed basis. Past Medical History: Diagnosis Date Cancer ([facility]) BREAST Cardiomyopathy CHF (congestive heart failure) ([facility]) Dizziness Dyslipidemia Dyspnea Edema Glaucoma Gout History of YAG laser capsulotomy of lens of right eye-Dr. Jimenez 07/17/2017 History of YAG laser capsulotomy of lens, left-Dr. Jimenez 07/24/2017 Hypertension LBBB (left bundle branch block) PVD (posterior vitreous detachment) Vertigo No data recorded No data recorded No data recorded Past Surgical History: Procedure Laterality Date APPENDECTOMY BREAST SURGERY CARDIAC DEFIBRILLATOR PLACEMENT 04/19/2013 [facility] ICD/ Generator replacement: 02/18/2016 CATARACT EXTRACTION [...] Never Smokeless tobacco: Never Vaping Use Vaping status: Never Used Substance and Sexual Activity Alcohol use: Yes [...] Systems Review of Systems Constitutional: Negative for malaise/fatigue. HENT: Negative for nosebleeds. Respiratory: Positive for shortness of breath. Negative for cough and wheezing. Hematologic/Lymphatic: Does not bruise/bleed easily. Musculoskeletal: Positive for arthritis, joint pain and joint swelling. Negative for muscle cramps and muscle weakness. Gastrointestinal: Positive for diarrhea (occ). Negative for bloating, abdominal pain, constipation, heartburn, hematochezia, nausea and vomiting. Genitourinary: Negative for hematuria. Neurological: Negative for dizziness, headaches and light-headedness. Vascular: Negative for claudication and lower extremity wounds or ulcers. CARDIOVASCULAR: Please review HPI. Physical Examination General [...] mood, memory and judgement. VITAL SIGNS: BP 110/82 Pulse 70 Ht 175.3 cm (5' 9.02 ) Wt 100.7 kg (222 lb) SpO2 94% BMI 32.77 kg/m No orders of the defined types were placed in this encounter. Medications Discontinued During This Encounter Medication Reason TRELEGY ELLIPTA 200-62.5-25 mcg blister with device [id number] Score: 4 4.8% Stroke risk per year, 6.7% risk of stroke/TIA/systemic embolism IMPRESSIONS/PLAN 1. Persistent atrial fibrillation (CMS-HCC) 2. 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) 3. Left bundle branch block (LBBB) Her device check reveals appropriate sensing and is 100% biventricular paced. She will continue current medical therapy. She is planning a trip to [place] in the near future and has Lasix as needed. Her battery longevity estimate is 11 months, and she will establish with an regional airline pilot at next visit and device check in 6 months. Follow-up is arranged TODAYS ORDERS No orders of the defined types were placed in this encounter. FOLLOW UP Return in about 6 months (around 08/01/2024). PCP: Tika Joy MD Referring Physician: Tika Joy MD [address] [place] [address] documented in this encounter [facility] 02-01-2024 History of Present illness Narrative I agree with the findings in the scanned document. [facility]-2023 History of Present illness Narrative Yenny Watkins Isidro Date of visit: 07/11/2023 Date of : 1945 Age: 78 y.o. Patient Active Problem List Diagnosis Automatic implantable cardioverter-defibrillator in situ [facility]. Cancer (CMS-HCC) Gout Dyslipidemia Dyspnea Edema Dizziness Vertigo Left bundle branch block (LBBB) Benign essential hypertension Nonischemic congestive cardiomyopathy ([facility]) Overweight Atrial fibrillation ([facility]) CHF (congestive heart failure) ([facility]) Allergies Allergen Reactions Cefaclor Other reaction(s): Intolerance-unknown [...] mg total) by mouth in the morning. hsowlnmn-jhno-BS-calcium &mins (THERAGRAN-M) 9 mg iron-400 mcg tablet [...] MOUTH IN THE MORNING 30 tablet 9 TRELEGY ELLIPTA 200-62.5-25 mcg blister with device [...] medications. Past Medical History: Diagnosis Date Cancer ([facility]) BREAST Cardiomyopathy CHF (congestive heart failure) ([facility]) Dizziness Dyslipidemia Dyspnea Edema Glaucoma Gout History of YAG laser capsulotomy of lens of right eye-Dr. Jimenez 07/17/2017 History of YAG laser capsulotomy of lens, left-Dr. Jimenez 07/24/2017 Hypertension LBBB (left bundle branch block) PVD (posterior vitreous detachment) Vertigo No data recorded No data recorded No data recorded Past Surgical History: Procedure Laterality Date APPENDECTOMY BREAST SURGERY CARDIAC DEFIBRILLATOR PLACEMENT 04/19/2013 [facility] ICD/ Generator replacement: 02/18/2016 CATARACT EXTRACTION [...] this encounter. There are no discontinued medications. [id number] Score: 4 4.8% Stroke risk per year, [...] Joy MD Referring Physician: Tika Joy MD [address] [place] [address] documented in this encounter [facility] 07-10-2023 Miscellaneous Notes Called patient to remind them to bring their most current copy of their medication list with them to their appt. Patient verbalizes understanding. documented in this encounter [facility] 07-10-2023 Telephone encounter Note Called patient to remind them to bring their most current copy of their medication list with them to their appt. Patient verbalizes understanding. [facility] 06-26-2023 Note Right Eye Reliability was good. Progression has been stable. Foveal threshold was normal. Findings include normal observations. Left Eye Reliability was good. Progression has been stable. Foveal threshold was normal. Findings include normal observations. Notes Clean VF OU MANUALLY TRANSCRIBED RESULTS 05-06-2023 Miscellaneous Notes 01/19/23 OV 04/13/23 CBC, CMP documented in this encounter [facility] 05-06-2023 Telephone encounter Note 01/19/23 OV 04/13/23 CBC, CMP [facility] 10-04-2022 Hospital Discharge instructions Patient Education 10/04/2022 10:05:11 Hematuria, Adult [...] Follow these instructions at home: Medicines Take jyga-wsh-oxwwezg and prescription medicines only as told by [...] or the blood stops without treatment. Take pzag-fms-dspfimb and prescription medicines only as told by your health care provider. Drink enough fluid to keep your urine pale yellow. This information is not intended to replace advice given to you by your health care provider. Make sure you discuss any questions you have with your health care provider. Document Revised: 12/16/2020 Document Reviewed: 12/16/2020 [employer] Patient Education 2022 [employer]. Follow Up Care 04/19/2022 09:43:54 With:STEPH RICE, Aron Davidson, URL Address: [address] [place] [address]- When: Unknown [facility] [place] 04-19-2022 Hospital Discharge instructions Patient Education 04/19/2022 09:42:28 Hematuria, Adult [...] Follow these instructions at home: Medicines Take hmjo-ijj-frgpuka and prescription medicines only as told by [...] or the blood stops without treatment. Take csky-bly-gyagwto and prescription medicines only as told by your health care provider. Drink enough fluid to keep your urine clear or pale yellow. This information is not intended to replace advice given to you by your health care provider. Make sure you discuss any questions you have with your health care provider. Document Released: 04/17/2006 Document Revised: 09/11/2019 Document Reviewed: 05/20/2017 [employer] Patient Education 2020 [employer]. Follow Up Care 03/28/2022 12:57:02 With:STEPH RICE, Aron Davidson, URL Address: [address] [place] [address] [address] [place] [address]- When:6 months Comments:renal US [facility] [place] 03-28-2022 Note [facility] Comment on above: Result Comment: Elec tronically Signed By: Carol ORTIZ\.br\Date and Time Signed: 03/28/22 11:39 EST\.br\Electronically Co-Signed By: Dar RICE, Saran Gifford\.br\Date and Time Co-Signed: 03/28/22 12:00 EST 03-28-2022 Evaluation + Plan note Extrac phil from: Title:Discharge Note Author:Desirae ORTIZ Date:03/28/22 Hemodynamically stable condi tion Discharge To, Anticipated II - Home with responsible caregiver Discharged to - Home with family care Discharge Status: Improved Discharge Instructions Given: To patient Discharge disposition: Home Prescriptions reviewed with Patient 47 minutes spent in discharge time with patient, collaborating MD, nursing staff, [facility] Discharge Diet(s): Regular, Fat Modified- Low cholesterol, Low Sodium- 2000 mg (03/28/22 11:29:00) Prescriptions Levaquin 750 mg Tab, 750 mg= 1 tab(s), Oral, Daily Nexium 20 mg Cap-DR, 20 mg= 1 cap(s), Oral, Daily nystatin 100,000 units/mL Oral Susp, 740694 unit(s)= 5 mL, Oral, q6hrFT Pro-Air HFA [...] 1 tab(s), Oral, BID Flonase 0.05 mg/inh [place], 0.1 mg= 2 spray(s), Nasal, Daily fluvoxamine [...] Wilfred London Within 1 to [address] [place] [address]- Business (1) Additional Instructions: Jose Francisco GALEANO Within 2 to 4 weeks [address] [facility] [place] [address]- Business (1) Additional Instructions: TIKA JOY In [address] [place] [address]- Business (1) Additional Instructions: Bacteremia, Adult Core Measures- Pneumonia [facility] (Custom) Extracted from: Title:APSO Note Author:SARMAD KAHN-ROD, Carol Saleh ate:03/27/22 1. Bacteremia (R78.81: Bacte remia) Unclear [...] d/c for a total of 2wks. Ordered: [facility] Hospital Care/Day High 35 Minutes [id number] 2. Hypoxia (R09.02: Hypoxemia) Likely 2/2 b/l [...] -> cont. chronic meds -F/U w/ primary generator rebuilder as outpt. 7. Nodule of kidney (N28.89: [...] Orders: fluticasone nasal, 0.1 mg, 2 spray(s), [place], Nasal, Daily, Routine, Start date 03/27/22 9:00:00 [...] made to ensure accuracy, however, inadvertently computerized paver layer mistakes may be present. Extracted from: Title:APSO [...] d/c for a total of 2wks. Ordered: [facility] Hospital Care/Day High 35 Minutes [id number] 2. Hypoxia (R09.02: Hypoxemia) Likely 2/2 b/l [...] -> cont. chronic meds -F/U w/ primary generator rebuilder as outpt. 7. Nodule of kidney (N28.89: [...] made to ensure accuracy, however, inadvertently computerized paver layer mistakes may be present. Extracted from: Title:Elisaa Author:Sia RICE, [facility] Date: Impression and Plan 1. Acute hypovolemic [...] if needed. Extracted from: Title:APSO Note Author:SARMAD KAHN-Carol VELASCO ate:03/25/22 1. Bacteremia (R78.81: Bacte remia) Unclear [...] -> cont. chronic meds -F/U w/ primary generator rebuilder as outpt. 6. Hyponatremia (E87.1: Hypo-osmolality and [...] made to ensure accuracy, however, inadvertently computerized paver layer mistakes may be present. Extracted from: Title:APSO [...] to ensure accuracy , however, inadvertently computerized paver layer mistakes may be present . Extracted from: Title:Progress/SOAP Note Author:Lita Saleh, Wilfred Saleh. Date:03/24/22 Stable for discharge from [facility] perspective. Follow-up with her outpatient generator rebuilder. Continue same medications as patient was admitted [...] (E66.9: Obesity, unspecified) Extracted from: Title:Consult Note Author:Lita RICE, [place] Date:03/23/22 Patient with nonischemic car diomyopathy and [...] (R09.02: Hypoxemia) Note Per discussion with emergency plating department helper nursing had witnessed patient on continuous monitor [...] Patient states she had an echocardiogram at [facility] ordered by her generator rebuilder in [place]. She indicates that there was decreased function [...] Therapy PT & PTT Rapid COVID Antigen ([facility]) Troponin UA With Cult Reflex XR Chest Single View Future Appointments Appointment Date:04/19/2022 09:15:00 AM Scheduled Provider:Aron HANCOCK MD Location:[facility] Appointment Type:URO Office Visit [facility]11-28-2022 Hospital Discharge instructions Patient Education 03/28/2022 11:32:23 [...] Follow these instructions at home: Medicines Take tvfg-zep-fqrvrsm and prescription medicines only as told by [...] and water are not available, use hand replenishment analyst. You should wash your hands: ?After using [...] health care provider. Practice good oral hygiene. [place] your teeth two times a day, and [...] 01/29/2007 Document Revised: 09/06/2019 Document Reviewed: 09/06/2019 [place] Patient Education 2019 [employer]. 03/23/2022 23:29:07 Core Measures- Pneumonia [facility] (Custom) Pneumonia Pneumonia is an infection of [...] mucous to be coughed up. Only take bcze-qsd-ahoxvvd or prescription medicines for pain, discomfort, or [...] instructed. Document Released: 04/17/2006 Document Re-Released: 10/13/2008 [facility] Patient Information 2009 [employer]. Follow Up Care 03/23/2022 00:44:11 With:Jose Francisco GALEANO Address: [address] [place] [address] [place] [address] Business (1) When:04/19/2022 09:15:00 With:Wilfred London Address: [address] [place] [address]- Business (1) When:1 to 2 weeks With:TIKA JOY Address: [address] [place] [address]- Business (1) When: Unknown [facility]11-23-2022 [facility] on above:Result Comment: Electronically Signed By: Kris CHIANG DO\Date and Time Signed: 03/23/22 05:25 [id number] Evaluation + Plan note Extracted from: Title:ED Note Author:Martínez Stoll M.D. te:11/14/21 1. Upper respiratory infecti on (J06.9: Acute upper respiratory infection, unspecified) 2. Eloped from emergency department (Z53.21: Procedure and treatment not carried out due to patient leaving prior to being seen by health care provider) [facility]03-30-2021 NoteHNO ID: [id number] Author: Evens Bernal (Rebeka Oropeza Service: ? [...] have EGD. We rain (more content not included)...[facility]03-05-2021 NoteHNO ID: [id number] Author: Martin Gibson Service: ? Author Type: [...] Diagnosis Date - CHF (congestive heart failure) ([facility]) - History of bilateral breast cancer - [...] injections. Follow-up as symptoms dictate Martin Gibson [facility] Future Appointments Appointment Date:04/19/2022 09:15:00 AM Scheduled Provider:Aron HANCOCK MD Location:[facility] Appointment Type:[facility]O [facility] Future Appointments Appointment Date:10/04/2022 09:45:00 AM Scheduled Provider:Aron HANCOCK MD Location:[facility] [place] Appointment Type:URO Office Visit [facility] Evalucsmwj noteNo assessment information available [facility] Work Phone: evaluation note* Diagnosis Onset Date Resolution Status Primary osteoarthritis of knees, bilateral acute [facility] Work Phone: evaluation note* Diagnosis Primary open angle glaucoma of right eye, mild stage documented in this encounter [facility]* Diagnosis Cardiomyopathy (CMS-HCC)- Primary Persistent atrial fibrillation (CMS-HCC) Atrial fibrillation Chronic systolic heart failure (CMS-HCC) Chronic systolic heart failure Left bundle branch block (LBBB) [facility] Diagnosis Chronic systolic congestive heart failure (CMS-HCC)- Primary Paroxysmal atrial fibrillation (CMS-HCC) Atrial fibrillation documented in this [facility]* Diagnosis Persistent atrial fibrillation (CMS-HCC)- Primary Atrial fibrillation 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) Left bundle branch block (LBBB) [facility] Diagnosis Automatic implantable cardioverter-defibrillator in situ [employer] Primary [facility]* Diagnosis Pain Generalized pain Pre-op evaluation- Primary Preoperative examination, unspecified Dysphagia, unspecified type ICD (implantable cardioverter-defibrillator) in place Automatic implantable cardiac defibrillator in situ Congestive heart failure, unspecified HF chronicity, unspecified heart failure type (HCC) Nonischemic congestive cardiomyopathy (HCC) Other primary cardiomyopathies Hypothyroidism, unspecified type Chronic gout of multiple sites, unspecified cause Bilateral malignant neoplasm of overlapping sites of breast in female, unspecified estrogen receptor status (HCC) Neuropathy Mononeuritis of unspecified site Other hyperlipidemia [facility] Diagnosis 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) Persistent atrial fibrillation (CMS-HCC) Atrial fibrillation Nonischemic congestive cardiomyopathy (CMS-HCC) Benign essential hypertension Essential hypertension, benign Left bundle branch block (LBBB) Automatic implantable cardioverter-defibrillator in situ [employer] documented [facility] encounter [facility] Narrative No data available for this section [facility] No data available for this section [facility] HospitalInstructionsNot on filedocumented in this encounter [facility] filedocumented in this encounter [facility] filedocumented in this encounter [facility] on filedocumented in this encounter [facility] on filedocumented in this encounter [facility]ructionsNot on filedocumented in this encounter [facility]ructionsNot on filedocumented in this encounter [facility]ructionsNot on filedocumented in this encounter [facility]ructionsNot on filedocumented in this encounter [facility] No data available for this section [facility] Summary Purpose Family History No Family History Records FoundNo Family History Records FoundNo Family History Records FoundNo Family History Records FoundNo Family History Records FoundNo Family History Records FoundNo Family History Records FoundNo Family History Records FoundNo Family History Records FoundNo Family History Records FoundNo Family History Records FoundNo Family History Records Found Advance Directives Advance Directive Response Recorded Date/ Time Advance Directives No September 29 9:26am Advance Directive Response Recorded Date/ Time Advance Directives No September 29 8:26am Documents on File Type Date Recorded Patient Molder Sweep Expl anation Advance Directive(s) 12/03/2020 9:02 AM Assessments Diagnosis Pain- Primary Generalized pain Chief Complaint and Reason for Visit Chief Complaint Renal cyst Chief Complaint NEW LT KNEE PAIN NX M25.562 Reason for Visit Primary osteoarthrit is of knees, bilateral Reason for Referral Specialty Diagnoses / Procedures Referred By Contac t Referred To Contact Diagnoses Persistent atrial fibrillation ([facility]) Chronic combined systolic and diastolic congestive heart failure ([facility]) Left bundle branch block (LBBB) Procedures Device Interrogation Rambo Duke DO [address] [place] [address], [address] [place] [id number] Referral ID Status Reason Start Date Expiration Date V isits Requested Visits Authorized [id number] Pending Review 02/01/2024 01/31/2025 1 1 Additional Source Comments INFORMATION SOURCE (unrecogn ized section and content) DATE CREATED AUTHOR 10/24/2017 [facility] DATE CREATED AUTHOR AUTHOR'S ORGANIZ ATION 12/04/2020 [facility] DATE CREATED AUTHOR AUTHOR'S ORGANIZ ATION 04/19/2021 [facility] DATE CREATED AUTHOR AUTHOR'S ORGANIZ ATION 08/14/2021 [facility] DATE CREATED AUTHOR AUTHOR'S ORGANIZ ATION 10/09/2022 [facility] DATE CREATED AUTHOR AUTHOR'S ORGANIZ ATION 12/14/2022 [facility] DATE CREATED AUTHOR AUTHOR'S ORGANIZ ATION 02/18/2023 [facility] DATE CREATED AUTHOR AUTHOR'S ORGANIZ ATION 06/29/2023 [facility] DATE CREATED AUTHOR AUTHOR'S ORGANIZ ATION 10/13/2023 [facility] DATE CREATED AUTHOR AUTHOR'S ORGANIZ ATION 12/27/2023 [facility] EPIC DATE CREATED AUTHOR AUTHOR'S ORGANIZ ATION 02/02/2024 [facility] EPIC DATE CREATED AUTHOR AUTHOR'S CRISTINO ATHUEY 02/03/2024 [facility] Source Comments (unrecognize d section and content) In the event this informatio n is protected by the Federal Confidentiality of Alcohol and Drug Abuse Patient Records regulations: The Federal rules restrict any use of the information to criminally investigate or prosecute any alcohol or drug abuse patient.[facility] the event this information is protected by the Federal Confidentiality of Alcohol and Drug Abuse Patient Records regulations: The Federal rules restrict any use of the information to criminally investigate or prosecute any alcohol or drug abuse patient.[facility] Care Team (unrecognized sect ion and content) Desilverizer Relationship Specialty Start Date End Date Tika Joy MD [address] [place], [place] PCP - General Internal Medicine 03/17/17 Desilverizer Relationship Specialty Start Date End Date Tika Joy MD [address] [place] PCP - General Internal Medicine 03/17/17 Team Status: Active Member Role Status Dates Tika Joy MD Primary Care Provider Active Team Status: Inactive Member Role Status Dates Aron Hancock MD Attending Provider Active Tika Joy MD Primary Care Provider Active Desilverizer Relationship Specialty Start Date End Date Tika Joy MD [address] [place] [address] PCP - General 01/09/14 Team Status: Inactive Member Role Status Dates Tika Joy MD Primary Care Provider Active Start: June 21, 2023 End: June 21, 2023 Jose Francisco Tong II, MD Attending Provider Active Start: June 21, 2023 End: June 21, 2023 Desilverizer Relationship Specialty Start Date End Date Tika Joy MD [address] [place] [address] PCP - General 01/09/14 Desilverizer Relationship Specialty Start Date End Date Tika Joy MD [address] [place] [address] PCP - General 01/09/14 Desilverizer Relationship Specialty Start Date End Date Tika Joy MD [address] [place] [address] PCP - General 01/09/14 Desilverizer Relationship Specialty Start Date End Date Tika Joy MD [address] [place] [address] PCP - General 01/09/14 Desilverizer Relationship Specialty Start Date End Date Tika Joy MD [address] [place] [address] PCP - General 01/09/14 Desilverizer Relationship Specialty Start Date End Date Tika Joy MD [address] [place] [address] PCP - General 01/09/14 Desilverizer Relationship Specialty Start Date End Date Tika Joy MD [address] [facility] [place] [address] PCP - General Internal Medicine 12/26/23 Desilverizer Relationship Specialty Start Date End Date Tika Joy MD [address] [facility] [place] [address] PCP - General 01/09/14 Goals (unrecognized section and content) Goals may be documented in a n alternate section Reason for Visit (unrecogniz ed section and content) Reason Comments Med Refill Reason Onset Date Comments Appointment 07/10/2023 Reason Comments Follow-up Hypertension Atrial Fibrillation Reason Comments Device Check Follow-up 6MO W/DEVICE, SCHED W/PT Reason Comments Device Check Reason Comments Radiology XR Reason Onset Date Comments CT SCAN FYI 02/20/2024 FOR RECORDS PERTAINING TO PATIENTS WHO ARE [...] BE BASED ON THE PRIMARY CLINICAL RECORDS. [employer] provides no warranty or guarantee of the accuracy or completeness of information in this document.
[2024-02-24 12:37] LABS: Potassium 4.6 mmol/L (3.5-5.1)
== END 2024-02-24 11:34 | disposition home or self-care (01) ==
LOC: LAB 11:35
DX: I50.42 Chronic combined systolic (congestive) and diastolic (congestive) heart failure (principal)
CPT/HCPCS: 36415; 84132

== ENCOUNTER 2024-05-15 14:11 | Outpatient (OUT) | payer MEDICARE, OTHER, SELFPAY ==
--- OUTSIDE RECORDS SUMMARY | 2024-05-15 14:36 | XMS_ITS | CCD ---
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 Education - Text Normal [facility] Progress Note-Physicianon Progress Note-Physician Normal [facility] Comment on above: Result Comment: Elec tronically Signed By: Carol ORTIZ\.br\Date and Time Signed: 03/27/22 08:04 EST\.br\Electronically Co-Signed By: Dar RICE, Saran Gifford\.br\Date and Time Co-Signed: 03/27/22 09:21 EST Vanco Troughon 03-27-2022 VANCOMYCIN <4 Low 10-20 [facility] Comment on above: Result Comment: Resu lts verified by repeat analysis Performed By: #### 2 987154 ####[facility] [address] [place] [address] eGFRon 03-27-2022 GFR/1.73 sq M.predicted among blacks MDRD (S/P/Bld) [Vol rate/Area] mL/min/{1.73_m2} Normal >=59 [facility] Comment on above: Order Comment: Order added by Discern Expert. Result Comment: eGFR is race adjusted. AA=. Performed By: #### 2 372917, [id number] ####[facility] [address] [place] [address] GFR/1.73 sq M.predicted among non-blacks MDRD (S/P/Bld) [Vol rate/Area] mL/min/{1.73_m2} Normal >=59 [facility] Comment on above: Order Comment: Order added by Discern Expert. Result Comment: [employer]estock [employer] quan kidney disease could be indicated at eGFR's of less than 60 mL/min/1.73m2. Kidney failure is indicated at less than 15 mL/min/1.73m2. Performed By: #### 2 581269, [id number] ####[facility] [address] [place] [address] BMPon 03-26-2022 Anion gap [Moles/Vol] 8 mmol/L Normal 6-16 [facility] Comment on above: Performed By: #### 2 859440, [id number], 6445521, 0126128 ####[facility] [address] [place] [address] Calcium [Mass/Vol] 9.8 mg/dL Normal 8.9-11.1 [facility] Comment on above: Performed By: #### 2 916998, 12080991, 2424256, 7488083 ####[facility] [address] [place] [address] Chloride [Moles/Vol] 108 mmol/L Normal 101-111 [facility] Comment on above: Performed By: #### 2 382803, 97397404, 8471599, 6425904 ####[facility] [address] [place] [address] CO2 [Moles/Vol] 21 mmol/L Normal 21-31 [facility] Comment on above: Performed By: #### 2 729429, 35253264, 6840838, 0567074 ####[facility] [address] [place] [address] Creatinine [Mass/Vol] 1.0 mg/dL Normal 0.5-1.3 [facility] Comment on above: Performed By: #### 2 578065, 20192765, 9933408, 8376233 ####[facility] [address] [place] [address] Glucose [Mass/Vol] 111 mg/dL Normal 55-199 [facility] Comment on above: Result Comment: If t his glucose result represents a fasting glucose, interpretation should refer to the following reference range: 55-99 mg/dL Performed By: #### 2 961434, 81144741, 7214571, 2595582 ####[facility] [address] [place] [address] Potassium [Moles/Vol] 3.2 mmol/L Low 3.5-5.3 [facility] Comment on above: Performed By: #### 2 949114, 16265148, 9616969, 4596538 ####[facility] [address] [place] [address] Sodium [Moles/Vol] 134 mmol/L Low 135-145 [facility] Comment on above: Performed By: #### 2 330038, 99672029, 8051911, 4732407 ####[facility] [address] [place] [address] Urea nitrogen [Mass/Vol] 20 mg/dL Normal 5-21 [facility] Comment on above: Performed By: #### 2 773934, 83929487, 7837028, 5258442 ####[facility] [address] [place] [address] Urea nitrogen/Creatinine [Mass ratio] 20 No Units Normal 10-20 [facility] Comment on above: Performed By: #### 2 261657, 60539855, 6104126, 9463617 ####[facility] [address] [place] [address] CHEMISTRYOrdered By: SYSTEM SYSTEM on 03-26-2022 Anion gap [Moles/Vol] 8 mmol/L Normal 6 - 16 mEq/L [facility] Remisol Calcium [Mass/Vol] 9.8 mg/dL Normal 8.9 - 11. 1 mg/dL [facility] Remisol Chloride [Moles/Vol] 108 mmol/L Normal 101 - 1 11 mmol/L [facility] Remisol CO2 [Moles/Vol] 21 mmol/L Normal 21 - 31 mmol/L [facility] Remisol Creatinine [Mass/Vol] 1.0 mg/dL Normal 0.5 - 1.3 mg/dL [facility] Remisol GFR/1.73 sq M.predicted among blacks MDRD (S/P/Bld) [Vol rate/Area] mL/min/1.73 m2 Normal >=59mL/min/ 1.73 m2 [facility] Chem S GFR/1.73 sq M.predicted among non-blacks MDRD (S/P/Bld) [Vol rate/Area] 54 mL/min/1.73 m2 Low >=59mL/min/ 1.73 m2 [facility] Chem S Glucose [Mass/Vol] 111 mg/dL Normal [...] mg/mg Normal 10 - 20 [facility] Remisol EMS Documentationon 03-26-20 22 EMS Documentation Normal [facility] EMS Documentation Normal [facility] Magnesiumon 03-26-2022 Magnesium [Mass/Vol] 1.5 mg/dL Normal 1.3-2.4 [facility] Comment on above: Performed By: #### 2 686603, 60640553, 7377325, 1718111 ####[facility] [address] [place] [address] Monitor Recordon 03-26-2022 Monitor Record [id number]#1.00CD :127 Normal [facility] Monitor Record [id number]#1.00CD :127 Normal [facility] Progress Note-Physicianon Progress Note-Physician Normal [facility] Comment on above: Result Comment: Elec tronically Signed By: SARMAD SHEARER, Carol\.br\Date and Time Signed: 03/26/22 09:07 EST\.br\Electronically Co-Signed By: Dar RICE, Saran Gifford\.br\Date and Time Co-Signed: 03/26/22 09:48 EST Sodiumon 03-26-2022 Sodium [Moles/Vol] 135 mmol/L Normal 135-145 [facility] Comment on above: Performed By: #### 2 695058 ####[facility] [address] [place] [address] TSHon 03-26-2022 TSH Qn 2.52 m[IU]/L Normal 0.34-5.60 [facility] Comment on above: Performed By: #### 2 205129, 14824602, 9794844, 4693520 ####[facility] [address] [place] [address] eGFRon 03-26-2022 GFR/1.73 sq M.predicted among blacks MDRD (S/P/Bld) [Vol rate/Area] mL/min/{1.73_m2} Normal >=59 [facility] Comment on above: Order Comment: Order added by Discern Expert. Result Comment: eGFR is race adjusted. AA=. Performed By: #### 2 686344, 79326476, 1557804, 6122608 ####[facility] [address] [place] [address] GFR/1.73 sq M.predicted among non-blacks MDRD (S/P/Bld) [Vol rate/Area] 54 mL/min/1.73 m2 Low >=59 [facility] Comment on above: Order Comment: Order added by Discern Expert. Result Comment: [employer] quan kidney disease could be indicated at eGFR's of less than 60 mL/min/1.73m2. Kidney failure is indicated at less than 15 mL/min/1.73m2. Performed By: #### 2 121411, 80243426, 3392413, 1859750 ####[facility] [address] [place] [address] BMPon 03-25-2022 Anion gap [Moles/Vol] 11 mmol/L Normal 6-16 [facility] Comment on above: Performed By: #### 2 451693, 47380626 ####[facility] [address] [place] [address] Calcium [Mass/Vol] 9.7 mg/dL Normal 8.9-11.1 [facility] Comment on above: Performed By: #### 2 794569, 35738749 ####[facility] [address] [place] [address] Chloride [Moles/Vol] 104 mmol/L Normal 101-111 [facility] Comment on above: Performed By: #### 2 570295, 05225893 ####[facility] [address] [place] [address] CO2 [Moles/Vol] 22 mmol/L Normal 21-31 [facility] Comment on above: Performed By: #### 2 584043, 83352324 ####[facility] [address] [place] [address] Creatinine [Mass/Vol] 0.9 mg/dL Normal 0.5-1.3 [facility] Comment on above: Performed By: #### 2 569311, 30894433 ####[facility] [address] [place] [address] Glucose [Mass/Vol] 98 mg/dL Normal 55-199 [facility] Comment on above: Result Comment: If t his glucose result represents a fasting glucose, interpretation should refer to the following reference range: 55-99 mg/dL Performed By: #### 2 004267, 06685078 ####[facility] [address] [place] [address] Potassium [Moles/Vol] 3.7 mmol/L Normal 3.5-5.3 [facility] Comment on above: Performed By: #### 2 101220, 91386974 ####[facility] [address] [place] [address] Sodium [Moles/Vol] 133 mmol/L Low 135-145 [facility] Comment on above: Performed By: #### 2 294504, 55862020 ####[facility] [address] [facility] [place] [address] Urea nitrogen [Mass/Vol] 20 mg/dL Normal 5-21 [facility] Comment on above: Performed By: #### 2 440015, 47207194 ####[facility] [address] [place] [address] Urea nitrogen/Creatinine [Mass ratio] 22 No Units High 10-20 [facility] Comment on above: Performed By: #### 2 036506, 84606045 ####[facility] [address] [place] [address] C Blood Charcoalon Blood Culture Charcoal Normal [facility] Comment on above: Performed By: #### 1 3224832 ####[facility] [address] [facility] [place] [address] Blood Culture Charcoal Normal [facility] Comment on above: Performed By: #### 1 3730419 ####[facility] [address] [place] [address] C Urineon 03-25-2022 Bacteria identified Cx Nom (U) Normal [facility] Comment on above: Performed By: #### 2 726000, 48419039 ####[facility] [address] [place] [address] CHEMISTRYOrdered By: SYSTEM SYSTEM on 03-25-2022 Calcium [Mass/Vol] 9.7 mg/dL Normal 8.9 - 11. 1 mg/dL [facility] Remisol Creatinine [Mass/Vol] 0.9 mg/dL Normal 0.5 - 1.3 mg/dL [facility] GFR/1.73 sq M.predicted among blacks MDRD (S/P/Bld) [Vol rate/Area] mL/min/1.73 m2 Normal >=59mL/min/ 1.73 m2 [facility] Chem S GFR/1.73 sq M.predicted among non-blacks MDRD (S/P/Bld) [Vol rate/Area] mL/min/1.73 m2 Normal >=59mL/min/ 1.73 m2 [facility] Chem S Glucose [Mass/Vol] 98 mg/dL Normal 55 - 199 mg/dL [facility] Remisol Urea nitrogen [Mass/Vol] 20 mg/dL Normal 5 - 21 mg/dL [facility] Remisol Urea nitrogen/Creatinine [Mass ratio] 22 mg/mg High 10 - 20 [facility] [place] Abdomen/Pelvis w/o Contra ston 03-25-2022 CT Abdomen/Pelvis w/o Contrast Normal [facility] CT Chest w/o Contraston 03-02 CT Chest w/o Contrast Normal [facility] Interdisciplinary Note - Pito e Manageron 03-25-2022 Interdisciplinary Note - [employer]bestos Text[employer] Supervisor Normal [facility] Comment on above: Result Comment: Elec tronically Signed By: Mirela Petersen\.br\Date and Time Signed: 03/25/22 12:34 EST Laboratory - Microbiology an d Antimicrobial susceptibilityOrdered By: Eunice Renee on 03-25-2022 Bacteria identified Respiratory culture Nom (Sput) 1+ Madeleine albicans Presumptive Scant growth of Normal upper respiratory yashira isolated [facility] Monitor Recordon 03-25-2022 Monitor Record [id number]#1.00CD :127 Normal [facility] No Panel InformationOrdered By: Eunice Renee on 03-25-2022 GS Rare epithelial cell s No organisms seen. [facility] Outside Recordson 03-25-2022 Outside Records [id number]#1.00CD :127 Normal [facility] Progress Note-Physicianon Progress Note-Physician Normal [facility] Comment on above: Result Comment: Elec tronically Signed By: Evan Stovall MD\.br\Date and Time Signed: 03/25/22 15:46 EST Progress Note-Physician Normal [facility] Comment on above: Result Comment: Elec tronically Signed By: Carol ORTIZ\.br\Date and Time Signed: 03/25/22 10:27 EST\.br\Electronically Co-Signed By: Dar RICE, Saran Gifford\.br\Date and Time Co-Signed: 03/25/22 11:15 EST Progress Note-Physician Normal [facility] Comment on above: Result Comment: Elec tronically Signed By: Balbina RICE, Fahad\.br\Date and Time Signed: 03/25/22 07:27 EST Sodiumon 03-25-2022 Sodium [Moles/Vol] 135 mmol/L Normal 135-145 [facility] Comment on above: Performed By: #### 2 611376 ####[facility] [address] [place] [address] Sodium [Moles/Vol] 135 mmol/L Normal 135-145 [facility] Comment on above: Performed By: #### 2 636499 ####[facility] [address] [place] [address] Sodium [Moles/Vol] 132 mmol/L Low 135-145 [facility] Comment on above: Performed By: #### 2 779072 ####[facility] [address] [place] [address] U Legi Agon 03-25-2022 L. pneumophila 1 Ag IA Ql (U) Negative Invalid Interpretation Code Negative [facility] Comment on above: Result Comment: Pres umptive negative for L. pneumophila serogroup 1 antigen in urine,suggesting no recent or current infection. Legionnaires' diseasecannot be ruled out since other serogroups and species may also causedisease.Performed at: [facility] [id number] MD Guevara Lewis Performed By: #### 2 513934 ####[facility] [address] [place] [address] US Renalon 03-25-2022 US Renal Normal [facility] eGFRon 03-25-2022 GFR/1.73 sq M.predicted among blacks MDRD (S/P/Bld) [Vol rate/Area] mL/min/{1.73_m2} Normal >=59 [facility] Comment on above: Order Comment: Order added by Discern Expert. Result Comment: eGFR is race adjusted. AA=. Performed By: #### 2 485322, [id number] ####[facility] [address] [place] [address] GFR/1.73 sq M.predicted among non-blacks MDRD (S/P/Bld) [Vol rate/Area] mL/min/{1.73_m2} Normal >=59 [facility] Comment on above: Order Comment: Order added by Robert Expert. Result Comment: Livestock [employer] quan kidney disease could be indicated at eGFR's of less than 60 mL/min/1.73m2. Kidney failure is indicated at less than 15 mL/min/1.73m2. Performed By: #### 2 417301, 11911092 ####[facility] [address] [place] [address] Auto Diffon 03-24-2022 Basophils/100 WBC (Bld) 0.3 % Normal 0.0-2.0 [facility] Comment on above: Order Comment: Order Added by Robert Expert. Performed By: #### 2 398006, 07991501, 4460554, 8170564 ####[facility] [address] [place] [address] Basophils/Leukocytes Auto (Bld) [Pure # fraction] 0.0 E9/L Normal 0.0-0.2 [facility] Comment on above: Order Comment: Order Added by Discern Expert. Performed By: #### 2 880662, 18763871, 5441294, 7945842 ####[facility] [address] [place] [address] Eosinophils/100 WBC (Bld) 0.5 % Normal 0.0-8.0 [facility] Comment on above: Order Comment: Order Added by Discern Expert. Performed By: #### 2 467982, 06754529, 1614562, 7640539 ####[address] [place] [address] Eosinophils/Leukocytes Auto (Bld) [Pure # fraction] 0.0 E9/L Normal 0.0-0.5 [facility] Comment on above: Order Comment: Order Added by Discern Expert. Performed By: #### 2 162710, 22419924, 8242923, 8095750 ####[address] [place] [address] Lymphocytes/100 WBC (Bld) 5.3 % Low 14.0-50.0 [facility] Comment on above: Order Comment: Order Added by Robert Expert. Performed By: #### 2 178508, 26431386, 0412473, 5228769 ####[address] [address] Lymphocytes/Leukocytes Auto (Bld) [Pure # fraction] 0.5 E9/L Low 1.0-4.0 [facility] Comment on above: Order Comment: Order Added by Robert Expert. Performed By: #### 2 349127, 39581994, 1676184, 4811632 ####[address] [address] Monocytes/100 WBC (Bld) 8.5 % Normal 4.0-14.0 [facility] Comment on above: Order Comment: Order Added by Robert Expert. Performed By: #### 2 458452, 87580245, 4514212, 6698754 ####[address] [place] [address] Monocytes/Leukocytes Auto (Bld) [Pure # fraction] 0.8 E9/L Normal 0.2-1.0 [facility] Comment on above: Order Comment: Order Added by Robert Expert. Performed By: #### 2 629884, 57855172, 7521795, 4827024 ####[address] [place] [address] Neutrophils/100 WBC (Bld) 85.4 % High 36.0-75.0 [facility] Comment on above: Order Comment: Order Added by Discern Expert. Performed By: #### 2 330151, 42362623, 5915432, 9835029 ####[facility] [address] [place] [address] Neutrophils/Leukocytes Auto (Bld) [Pure # fraction] 8.5 E9/L High 2.0-7.5 [facility] Comment on above: Order Comment: Order Added by Discern Expert. Performed By: #### 2 994433, 12571067, 0612901, 9965547 ####[facility] [address] [place] [address] BMPon 03-24-2022 Anion gap [Moles/Vol] 9 mmol/L Normal 6-16 [facility] Comment on above: Performed By: #### 2 644096, 33984601, 6833557, 9265836 ####[facility] [address] [place] [address] Calcium [Mass/Vol] 9.2 mg/dL Normal 8.9-11.1 [facility] Comment on above: Performed By: #### 2 442264, 82729757, 9921875, 2783512 ####[facility] [address] [place] [address] Chloride [Moles/Vol] 106 mmol/L Normal 101-111 [facility] Comment on above: Performed By: #### 2 218149, 77426839, 0280865, 8560189 ####[facility] [address] [place] [address] CO2 [Moles/Vol] 21 mmol/L Normal 21-31 [facility] Comment on above: Performed By: #### 2 821647, 76382254, 6966753, 8791337 ####[facility] [address] [place] [address] Creatinine [Mass/Vol] 1.0 mg/dL Normal 0.5-1.3 [facility] Comment on above: Performed By: #### 2 721249, 47050204, 2635933, 8982922 ####[facility] [address] [place] [address] Glucose [Mass/Vol] 95 mg/dL Normal 55-199 [facility] Comment on above: Result Comment: If t his glucose result represents a fasting glucose, interpretation should refer to the following reference range: 55-99 mg/dL Performed By: #### 2 851115, 90252850, 3062027, 3609921 ####[facility] [address] [place] [address] Potassium [Moles/Vol] 3.9 mmol/L Normal 3.5-5.3 [facility] Comment on above: Performed By: #### 2 275658, 72834944, 6558520, 6931348 ####[facility] [address] [place] [address] Sodium [Moles/Vol] 132 mmol/L Low 135-145 [facility] Comment on above: Performed By: #### 2 138419, 14167972, 2461564, 5417446 ####[facility] [address] [place] [address] Urea nitrogen [Mass/Vol] 15 mg/dL Normal 5-21 [facility] Comment on above: Performed By: #### 2 933745, 61585873, 8918277, 4473426 ####[facility] [address] [place] [address] Urea nitrogen/Creatinine [Mass ratio] 15 No Units Normal 10-20 [facility] Comment on above: Performed By: #### 2 886064, 47737975, 2116216, 0680075 ####[facility] [address] [place] [address] CBC w/ Auto Diffon 2 Erythrocyte distribution width (RBC) [Ratio] 13.6 % Normal 10.9-14.2 [facility] Comment on above: Performed By: #### 2 624344, 93792088, 7267546, 0633814 ####[facility] [address] [place] [id number] Hematocrit (Bld) [Volume fraction] 35.8 % Normal 34.0-46.0 [facility] Comment on above: Performed By: #### 2 066037, 38338059, 8244349, 3898543 ####[facility] [address] [place] [id number] Hemoglobin (Bld) [Mass/Vol] 12.2 g/dL Normal 12.0-16.0 [facility] Comment on above: Performed By: #### 2 524133, 62530073, 6905346, 4206909 ####[place] [address]657 MCH (RBC) [Entitic mass] 30.3 pg Normal 27.0-34.0 [facility] Comment on above: Performed By: #### 2 822841, 59123431, 7961271, 3868930 ####[place] [address]657 MCHC (RBC) [Mass/Vol] 34.1 g/dL Normal 31.4-36.0 [facility] Comment on above: Performed By: #### 2 548319, 27941795, 8061534, 3669510 ####[place] [address]84657 MCV (RBC) [Entitic vol] 89.0 fL Normal 80.0-100.0 [facility] Comment on above: Performed By: #### 2 883423, 81798308, 0398143, 8900936 ####[place] 5984657 Platelet mean volume (Bld) [Entitic vol] 8.1 fL Normal 6.4-10.8 [facility] Comment on above: Performed By: #### 2 933429, 46795411, 4894357, 5786980 ####[place] [address]657 Platelets (Bld) [#/Vol] 180.0 E9/L Normal 150.0-500.0 [facility] Comment on above: Performed By: #### 2 736646, 79398232, 4912348, 7368135 ####[facility] [address] [place] [address] RBC (Bld) [#/Vol] 4.0 E12/L Low 4.3-5.9 [facility] Comment on above: Performed By: #### 2 870370, 35312978, 1169474, 1224347 ####[facility] [address] [place] [address] WBC corrected for nucl RBC Auto (Bld) [#/Vol] 9.9 E9/L Normal 4.0-11.0 [facility] Comment on above: Performed By: #### 2 854770, 97880827, 9359059, 1642570 ####[facility] [address] [place] [address] HEMATOLOGYOrdered By: SYSTEM SYSTEM on 03-24-2022 Basophils/100 [...] ys. Final to follow at 7 days. [facility] Progress Note-Physicianon Progress Note-Physician Normal [facility] Comment on above: Result Comment: Elec tronically Signed By: Lita RICE, Wilfred Calvo\.br\Date and Time Signed: 03/24/22 10:36 EST Sodiumon 03-24-2022 Sodium [Moles/Vol] 133 mmol/L Low 135-145 [facility] Comment on above: Performed By: #### 2 490829 ####[facility] [address] [place] [address] eGFRon 03-24-2022 GFR/1.73 sq M.predicted among blacks MDRD (S/P/Bld) [Vol rate/Area] mL/min/{1.73_m2} Normal >=59 [facility] Comment on above: Order Comment: Order added by Discern Expert. Result Comment: eGFR is race adjusted. AA=. Performed By: #### 2 528051, 46450283, 3382001, 9464692 ####[facility] [address] [place] [address] GFR/1.73 sq M.predicted among non-blacks MDRD (S/P/Bld) [Vol rate/Area] 54 mL/min/1.73 m2 Low >=59 [facility] Comment on above: Order Comment: Order added by Discern Expert. Result Comment: [employer] quan kidney disease could be indicated at eGFR's of less than 60 mL/min/1.73m2. Kidney failure is indicated at less than 15 mL/min/1.73m2. Performed By: #### 2 871745, 31590051, 0598005, 5015835 ####[facility] [address] [place] [address] Auto Diffon 03-23-2022 Basophils/100 WBC (Bld) 0.9 % Normal 0.0-2.0 [facility] Comment on above: Order Comment: Order Added by Discern Expert. Performed By: #### 2 525081, 75075995, 9262513, 3544946780, 2066135, 4319407 ####[facility] [address] [place] [address] Basophils/Leukocytes Auto (Bld) [Pure # fraction] 0.1 E9/L Normal 0.0-0.2 [facility] Comment on above: Order Comment: Order Added by Discern Expert. Performed By: #### 2 339195, 61417669, 9132902, 4566561467, 6132907, 1470581 ####[place] [address] [place] [address] Eosinophils/100 WBC (Bld) 0.1 % Normal 0.0-8.0 [facility] Comment on above: Order Comment: Order Added by Discern Expert. Performed By: #### 2 594891, 99507163, 5366349, 7957580016, 8307119, 8072602 ####[place] [address] [place] [address] Eosinophils/Leukocytes Auto (Bld) [Pure # fraction] 0.0 E9/L Normal 0.0-0.5 [facility] Comment on above: Order Comment: Order Added by Discern Expert. Performed By: #### 2 845313, 62610350, 5406787, 1090577424, 7991636, 5566067 ####[address] [address] Lymphocytes/100 WBC (Bld) 4.7 % Low 14.0-50.0 [facility] Comment on above: Order Comment: Order Added by Discern Expert. Performed By: #### 2 794242, 72396247, 0642536, 7212982061, 9191440, 9230959 ####[address] [address] Lymphocytes/Leukocytes Auto (Bld) [Pure # fraction] 0.4 E9/L Low 1.0-4.0 [facility] Comment on above: Order Comment: Order Added by Discern Expert. Performed By: #### 2 883761, 54419559, 8071746, 6348601606, 1671607, 6454199 ####[address] [address] Monocytes/100 WBC (Bld) 7.2 % Normal 4.0-14.0 [facility] Comment on above: Order Comment: Order Added by Discern Expert. Performed By: #### 2 693381, 35751174, 2239063, 0718515670, 9958612, 3244916 ####[place] [address] [place] [address] Monocytes/Leukocytes Auto (Bld) [Pure # fraction] 0.6 E9/L Normal 0.2-1.0 [facility] Comment on above: Order Comment: Order Added by Discern Expert. Performed By: #### 2 897484, 31491297, 3955636, 7427246886, 5175814, 6153629 ####[place] [address] [place] [address] Neutrophils/100 WBC (Bld) 87.1 % High 36.0-75.0 [facility] Comment on above: Order Comment: Order Added by Discern Expert. Performed By: #### 2 322042, 69646990, 7546885, 1894662574, 0058505, 4394462 ####[address] [address] Neutrophils/Leukocytes Auto (Bld) [Pure # fraction] 7.0 E9/L Normal 2.0-7.5 [facility] Comment on above: Order Comment: Order Added by Discern Expert. Performed By: #### 2 025799, 91127465, 9843347, 7990503018, 2784164, 0525672 ####[address] [address] Basophils/100 WBC (Bld) 0.5 % Normal 0.0-2.0 [facility] Comment on above: Order Comment: Order Added by Discern Expert. Performed By: #### 2 261330, 8457807, 96218103, 0172067, 44183848, 6681559, 8835950 ####[address] [address] Basophils/Leukocytes Auto (Bld) [Pure # fraction] 0.0 E9/L Normal 0.0-0.2 [facility] Comment on above: Order Comment: Order Added by Discern Expert. Performed By: #### 2 130362, 9217375, 85489183, 4830728, 71016992, 2186345, 4732850 ####[place] [address] [place] [address] Eosinophils/100 WBC (Bld) 0.3 % Normal 0.0-8.0 [facility] Comment on above: Order Comment: Order Added by Discern Expert. Performed By: #### 2 678747, 8914925, 96633982, 7980762, 88727289, 3735568, 1274292 ####[place] [address] [place] [address] Eosinophils/Leukocytes Auto (Bld) [Pure # fraction] 0.0 E9/L Normal 0.0-0.5 [facility] Comment on above: Order Comment: Order Added by Discern Expert. Performed By: #### 2 738058, 5950633, 38788820, 1475039, 77037148, 1763211, 6085611 ####[address] [address] Lymphocytes/100 WBC (Bld) 3.6 % Low 14.0-50.0 [facility] Comment on above: Order Comment: Order Added by Discern Expert. Performed By: #### 2 463701, 0228295, 99489023, 0494934, 49103419, 3740535, 4154762 ####[address] [address] Lymphocytes/Leukocytes Auto (Bld) [Pure # fraction] 0.3 E9/L Low 1.0-4.0 [facility] Comment on above: Order Comment: Order Added by Discern Expert. Performed By: #### 2 379740, 6088066, 92052391, 3573742, 85459068, 8220527, 1774624 ####[address] [address] Monocytes/100 WBC (Bld) 6.2 % Normal 4.0-14.0 [facility] Comment on above: Order Comment: Order Added by Discern Expert. Performed By: #### 2 580507, 4079608, 13464549, 8212448, 59486102, 1175484, 1943857 ####[facility] [address] [place] [address] Monocytes/Leukocytes Auto (Bld) [Pure # fraction] 0.5 E9/L Normal 0.2-1.0 [facility] Comment on above: Order Comment: Order Added by Discern Expert. Performed By: #### 2 626452, 8019344, 52592819, 6053268, 09251256, 2895985, 2642351 ####[place] [address] [place] [address] Neutrophils/100 WBC (Bld) 89.4 % High 36.0-75.0 [facility] Comment on above: Order Comment: Order Added by Discern Expert. Performed By: #### 2 098752, 1491638, 88819609, 3119289, 61071476, 8847191, 7925553 ####[facility] [address] [place] [address] Neutrophils/Leukocytes Auto (Bld) [Pure # fraction] 7.9 E9/L High 2.0-7.5 [facility] Comment on above: Order Comment: Order Added by Discern Expert. Performed By: #### 2 360576, 5149917, 36029959, 2692299, 71439339, 6186665, 2910413 ####[facility] [address] [place] [address] BMPon 03-23-2022 Anion gap [Moles/Vol] 7 mmol/L Normal 6-16 [facility] Comment on above: Performed By: #### 2 624008, 01588138, 4750919, 3248777765, 4230239, 5021996 ####[place] [address] [place] [address] Calcium [Mass/Vol] 9.0 mg/dL Normal 8.9-11.1 [facility] Comment on above: Performed By: #### 2 069835, 21940281, 1285089, 6278357110, 8195012, 1625031 ####[facility] [address] [place] [address] Chloride [Moles/Vol] 105 mmol/L Normal 101-111 [facility] Comment on above: Performed By: #### 2 420009, 16637146, 3980335, 8579760040, 1062619, 5523507 ####[facility] [address] [place] [address] CO2 [Moles/Vol] 21 mmol/L Normal 21-31 [facility] Comment on above: Performed By: #### 2 741705, 85081930, 6198463, 9955243895, 1613015, 5562777 ####[facility] [address] [place] [address] Creatinine [Mass/Vol] 1.0 mg/dL Normal 0.5-1.3 [facility] Comment on above: Performed By: #### 2 039617, 17072860, 7666505, 5177049203, 3648374, 3248342 ####[facility] [address] [place] [address] Glucose [Mass/Vol] 100 mg/dL Normal 55-199 [facility] Comment on above: Result Comment: If t his glucose result represents a fasting glucose, interpretation should refer to the following reference range: 55-99 mg/dL Performed By: #### 2 969664, 67118009, 1697766, 7132931333, 9555495, 8315137 ####[facility] [address] [place] [address] Potassium [Moles/Vol] 3.7 mmol/L Normal 3.5-5.3 [facility] Comment on above: Performed By: #### 2 506929, 26531487, 7679325, 7453082530, 2520102, 2960003 ####[facility] [address] [place] [address] Sodium [Moles/Vol] 129 mmol/L Low 135-145 [facility] Comment on above: Performed By: #### 2 803709, 66560801, 6964412, 0788824352, 9466865, 9111147 ####[facility] [address] [place] [address] Urea nitrogen [Mass/Vol] 15 mg/dL Normal 5-21 [facility] Comment on above: Performed By: #### 2 843270, 76142395, 6978877, 9098073941, 1780422, 3053931 ####[facility] [address] [place] [address] Urea nitrogen/Creatinine [Mass ratio] 15 No Units Normal 10-20 [facility] Comment on above: Performed By: #### 2 140908, 71133089, 1147291, 9400819276, 7103103, 3782094 ####[facility] [address] [place] [address] CBC w/ Auto Diffon Erythrocyte distribution width (RBC) [Ratio] 13.8 % Normal 10.9-14.2 [facility] Comment on above: Performed By: #### 2 966743, 55458042, 8067206, 1778235429, 7067651, 6581603 ####[facility] [address] [place] [address] Hematocrit (Bld) [Volume fraction] 36.5 % Normal 34.0-46.0 [facility] Comment on above: Performed By: #### 2 522313, 44597195, 7411852, 7551028172, 0051642, 2632976 ####[facility] [address] [place] [address] Hemoglobin (Bld) [Mass/Vol] 12.5 g/dL Normal 12.0-16.0 [facility] Comment on above: Performed By: #### 2 464240, 45834487, 1948511, 1952704842, 1187681, 3544156 ####[facility] [address] [place] [address] MCH (RBC) [Entitic mass] 29.7 pg Normal 27.0-34.0 [facility] Comment on above: Performed By: #### 2 602103, 46759035, 8352478, 9508503976, 7848164, 1477259 ####[facility] [address] [place] [address] MCHC (RBC) [Mass/Vol] 34.2 g/dL Normal 31.4-36.0 [facility] Comment on above: Performed By: #### 2 557009, 16887298, 0478830, 4880993252, 6956033, 2331957 ####[facility] [address] [place] [address] MCV (RBC) [Entitic vol] 86.7 fL Normal 80.0-100.0 [facility] Comment on above: Performed By: #### 2 662330, 32552417, 2042959, 9196489272, 0064125, 8830750 ####[address] [address] Platelet mean volume (Bld) [Entitic vol] 7.9 fL Normal 6.4-10.8 [facility] Comment on above: Performed By: #### 2 113013, 95852669, 2013467, 5936935355, 6055344, 8305631 ####[address] [address] Platelets (Bld) [#/Vol] 193.0 E9/L Normal 150.0-500.0 [facility] Comment on above: Performed By: #### 2 286148, 35510758, 3917033, 5290366829, 9371332, 6580809 ####[address] [address] RBC (Bld) [#/Vol] 4.2 E12/L Low 4.3-5.9 [facility] Comment on above: Performed By: #### 2 104056, 46560345, 1554191, 8804139966, 5302355, 7926329 ####[address] [place] [address] WBC corrected for nucl RBC Auto (Bld) [#/Vol] 8.0 E9/L Normal 4.0-11.0 [facility] Comment on above: Performed By: #### 2 558448, 51864085, 6726585, 2093038871, 3794020, 3030804 ####[place] [address] [place] [id number] Erythrocyte distribution width (RBC) [Ratio] 13.4 % Normal 10.9-14.2 [facility] Comment on above: Performed By: #### 2 181343, 5660379, 61310320, 8408780, 40281077, 1036957, 3422089 ####[place] [address] Hematocrit (Bld) [Volume fraction] 36.6 % Normal 34.0-46.0 [facility] Comment on above: Performed By: #### 2 014353, 2001825, 22834485, 9465023, 23991768, 8127072, 6656824 ####[facility] [address] [place] [address] Hemoglobin (Bld) [Mass/Vol] 12.5 g/dL Normal 12.0-16.0 [facility] Comment on above: Performed By: #### 2 437532, 8236069, 11050074, 2107410, 92211462, 9155440, 9106449 ####[facility] [address] [place] [address] MCH (RBC) [Entitic mass] 29.5 pg Normal 27.0-34.0 [facility] Comment on above: Performed By: #### 2 916010, 7035022, 16223481, 9181928, 45264970, 7815066, 9280650 ####[facility] [address] [place] [address] MCHC (RBC) [Mass/Vol] 34.1 g/dL Normal 31.4-36.0 [facility] Comment on above: Performed By: #### 2 132577, 6787685, 72376176, 5456931, 44742966, 1838962, 4306829 ####[facility] [address] [place] [address] MCV (RBC) [Entitic vol] 86.5 fL Normal 80.0-100.0 [facility] Comment on above: Performed By: #### 2 992050, 5463293, 32348924, 8054785, 15994430, 6142297, 3725252 ####[facility] [address] [place] [address] Platelet mean volume (Bld) [Entitic vol] 7.5 fL Normal 6.4-10.8 [facility] Comment on above: Performed By: #### 2 311096, 8162575, 30917153, 4295171, 60510049, 5036377, 5500360 ####[address] [address] Platelets (Bld) [#/Vol] 191.0 E9/L Normal 150.0-500.0 [facility] Comment on above: Performed By: #### 2 910887, 3232078, 64890438, 8297940, 30372257, 0181038, 5630246 ####[address] [address] RBC (Bld) [#/Vol] 4.2 E12/L Low 4.3-5.9 [facility] Comment on above: Performed By: #### 2 960608, 2637132, 10630051, 0453893, 57110456, 8894948, 0427616 ####[address] [address] WBC corrected for nucl RBC Auto (Bld) [#/Vol] 8.8 E9/L Normal 4.0-11.0 [facility] Comment on above: Performed By: #### 2 522195, 5555485, 07112016, 0968003, 34208423, 1445458, 9025479 ####[facility] [address] [place] [address] CEFTRIAXONE:SUSC:PT:ISOLATE: ORDQN:MICOrdered By: Lisha Tavares on 03-23-2022 cefTRIAXone QUOC [Susc] Streptococcus pk ivarius In 2 of 2 blood culture bottles drawn. Isolated from aerobic and anaerobic bottles Preliminary gram stain result of gram positive cocci in chains Result called to Dr. Mortensen by [facility] and results read back for confirmation on 03/23/2022 16:10:37 [facility] CHEMISTRYOrdered By: SYSTEM SYSTEM on 03-23-2022 [...] 112 mg/dL High 55 - 99 mg/dL [facility] [place] Comment on above: Result Comment: Dmitry alvarez RN/ POC Device SN [id number] Invalid Interpretation Code [facility] [place] [place] POC User ID [id number] Invalid Interpretation Code [facility] [place] POC Username MILDRED VIZCARRA Invalid Interpretation Code [facility] [place] Subsection CMPon 03-23-2022 Albumin [Mass/Vol] 3.5 g/dL Normal 3.3-5.0 [facility] Comment on above: Performed By: #### 2 231932, 1782604, 88995909, 6799494, 53092016, 4421399, 9730191 ####[facility] [address] [place] [address] Albumin/Globulin (S) [Mass conc ratio] 1.1 Normal 1.1-2.2 [facility] Comment on above: Performed By: #### 2 521516, 1029000, 64870025, 5774866, 36103330, 9789458, 4221236 ####[facility] [address] [place] [address] ALP [Catalytic activity/Vol] 67 Int._Unit/L Normal 21-98 [facility] Comment on above: Performed By: #### 2 639727, 5449469, 30954481, 3049326, 59151403, 6287275, 1814167 ####[facility] [address] [place] [address] ALT No additional P-5'-P [Catalytic activity/Vol] 33 Int._Unit/L Normal 6-46 [facility] Comment on above: Performed By: #### 2 289800, 0894143, 65025954, 9590218, 96646280, 0283409, 8509572 ####[facility] [address] [place] [address] AST [Catalytic activity/Vol] 38 Int._Unit/L Normal 5-43 [facility] Comment on above: Performed By: #### 2 626162, 1847659, 56584334, 2876489, 65081951, 4690384, 8344748 ####[facility] [address] [place] [address] Bilirubin [Mass/Vol] 1.3 mg/dL High 0.0-1.1 [facility] Comment on above: Performed By: #### 2 027311, 9817266, 23456257, 0139715, 62753608, 5594879, 6236710 ####[facility] [address] [place] [address] Creatinine [Mass/Vol] 0.9 mg/dL Normal 0.5-1.3 [facility] Comment on above: Performed By: #### 2 777348, 0115831, 40290071, 7901934, 46426477, 5047015, 3075768 ####[facility] [address] [place] [address] Globulin (S) [Mass/Vol] 3.3 g/dL Normal 1.4-4.0 [facility] Comment on above: Performed By: #### 2 825144, 1532320, 27397762, 4099438, 32851611, 5392243, 3603135 ####[facility] [address] [place] [address] Protein [Mass/Vol] 6.8 g/dL Normal 6.0-7.8 [facility] Comment on above: Performed By: #### 2 138668, 8511121, 05396650, 5924060, 43598427, 6912351, 9730131 ####[facility] [address] [place] [address] Urea nitrogen [Mass/Vol] 16 mg/dL Normal 5-21 [facility] Comment on above: Performed By: #### 2 569076, 9922950, 27556484, 3780552, 85313734, 8516182, 5044578 ####[facility] [address] [place] [address] Urea nitrogen/Creatinine [Mass ratio] 18 No Units Normal 10-20 [facility] Comment on above: Performed By: #### 2 158001, 2610027, 79722652, 0773592, 92256077, 4969607, 0693896 ####[facility] [address] [place] [address] Anion gap [Moles/Vol] 13 mmol/L Normal 6-16 [facility] Comment on above: Performed By: #### 2 253906, 6495007, 98467980, 6713527, 76053776, 3941206, 3681161 ####[facility] [address] [place] [address] Calcium [Mass/Vol] 9.1 mg/dL Normal 8.9-11.1 [facility] Comment on above: Performed By: #### 2 472568, 7224217, 26451082, 0343167, 99981344, 2873548, 9682490 ####[facility] [address] [place] [address] Chloride [Moles/Vol] 99 mmol/L Low 101-111 [facility] Comment on above: Performed By: #### 2 439881, 2012037, 64098356, 9971134, 79243017, 2873625, 8590281 ####[facility] [address] [place] [address] CO2 [Moles/Vol] 21 mmol/L Normal 21-31 [facility] Comment on above: Performed By: #### 2 398336, 1812074, 53753008, 8002517, 46017766, 9086759, 2539197 ####[facility] [address] [place] [address] Glucose [Mass/Vol] 113 mg/dL Normal 55-199 [facility] Comment on above: Result Comment: If t his glucose result represents a fasting glucose, interpretation should refer to the following reference range: 55-99 mg/dL Performed By: #### 2 417821, 6699524, 59078391, 4996970, 68245604, 0344731, 9485511 ####[facility] [address] [place] [address] Potassium [Moles/Vol] 3.5 mmol/L Normal 3.5-5.3 [facility] Comment on above: Performed By: #### 2 688309, 0259974, 35778136, 3988909, 31857286, 2979710, 3952040 ####[facility] [address] [place] [address] Sodium [Moles/Vol] 129 mmol/L Low 135-145 [facility] Comment on above: Performed By: #### 2 201239, 2603836, 69604774, 1850249, 31579803, 9555975, 7968672 ####[facility] [address] [place] [address] COAGULATIONOrdered By: eMli Potter on 03-23-2022 aPTT Coag (PPP) [Time] 34.5 s Normal 25.1 - 36.5 second(s) [facility] Auto Coag INR Coag (PPP) [Relative time] 2.7 {INR} Invalid Interpretation Code [facility] Auto Coag PT Coag (PPP) [Time] 31.2 s High 9.4 - 1 2.5 second(s) [facility] Auto Coag Capillary Glucose POCon 03-02 Glucose [Mass/Vol] 112 mg/dL High 55-99 [facility] Comment on above: Result Comment: Dmitry alvarez RN/ Performed By: #### 2 [id number] ####[facility] [address] [place] [address] Cardiology Progress Noteon 1 05-23-2021 Cardiology Progress Note Normal [facility] Comment on above: Result Comment: Elec tronically Signed By: Ingrid HAYWARD CNP\.br\Date and Time Signed: 03/23/22 15:44 EST\.br\Electronically Co-Signed By: Lita RICE, Wilfred Calvo\.br\Date and Time Co-Signed: 03/23/22 17:08 EST Consent for Treatmenton 03-02 Consent for Treatment [id number]: 127 Normal [facility] Consultation Noteon 03-23-20 Consultation Note Normal [facility] Comment on above: Result Comment: Elec tronically Signed By: Lita RICE, Wilfred Calvo\.br\Date and Time Signed: 03/23/22 17:07 EST Consultation Note Normal [facility] Comment on above: Result Comment: Elec tronically Signed By: Evan Stovall MD\.br\Date and Time Signed: 03/23/22 13:20 EST ED Clinical Summaryon 2021 ED Clinical Summary Normal [facility] ED Note-Nursingon 03-23-2022 ED Note-Nursing Normal [facility] ED Note-Physicianon 03-23-20 ED Note-Physician Normal [facility] Comment on above: Result Comment: Elec tronically Signed By: Annie Zaldivar DO\.br\Date and Time Signed: 03/23/22 03:18 EST ED Patient Education Noteon 03-23-2022 ED Patient Education Note Normal [facility] ED Patient Summaryon 022 ED Patient Summary Normal [facility] Echo Transthoracic Completeo n 03-23-2022 Echo Transthoracic Complete Normal [facility] HEMATOLOGYOrdered By: SYSTEM SYSTEM on 03-23-2022 [...] 4.2 E12/L Low 4.3 - 5.9 E12/L [facility] corrected for nucl RBC Auto (Bld) [#/Vol] 8.8 E9/L Normal 4.0 - 11.0 E9/L [facility] HemeAutoSS Influenza A&B Agon Influenzae A Ag Negative Normal Negative [facility] Comment on above: Performed By: #### 1 [id number], [id number] ####[facility] [address] [place] [address] Influenzae B Ag Negative Normal Negative [facility] Comment on above: Result Comment: Test sensitivity and specificity vary for age group, specimen type, antigen types, and prevalence of disease. Test results must be evaluated in conjunction with other clinical data available to the physician. Individuals who received nasally administered Influenza A vaccine may have positive test results up to 3 days after vaccination. 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 Normal [facility] Comment on above: Result Comment: Elec tronically Signed By: Mirela Petersen.gisela\Date and Time Signed: 03/23/22 09:47 EST Laboratory - Microbiology an d Antimicrobial susceptibilityOrdered By: Lisha Tavares on 03-23-2022 Bacteria identified Cx Nom (U) 5,000 cfu/ml Mixed skin contaminants [facility] Lactic Acidon 03-23-2022 Lactate [Mass/Vol] 0.8 mmol/L Normal 0.5-2.2 [facility] Comment on above: Performed By: #### 2 278098, 3724036, 69876092, 3596206, 80857022, 7646835, 9579732 ####[facility] [address] [place] [address] MICRO OTHER TESTSOrdered By: Gayle Potter on 03-23-2022 Influenzae A Ag Negative (03/23/22 12:48 AM) Normal Negative [facility] Man Sero Influenzae B Ag Negative (03/23/22 12:48 AM) Normal Negative [facility] Sero Rapid COV Int NEG Ctl Pass (03/23/22 12:48 AM) Normal [facility] Man Sero Rapid COV Int POS Ctl Pass (03/23/22 12:48 AM) Normal [facility] Man Sero SARS-CoV+SARS-CoV-2 (COVID-19) Ag IA.rapid Ql (Resp) Not Detected (03/23/22 12:48 AM) Normal Not Detected [facility] [place] Sero Message from Medicareon 03-02 Message from Medicare [id number] :127 Normal [facility] Monitor Recordon 03-23-2022 Monitor Record [id number] :127 Normal [facility] No Panel InformationOrdered By: Lisha Tavares on 03-23-2022 Blood Culture Charcoal Streptococcus pk ivarius Presumptive refer to blood culture from 03/23/22 at 0124 for complete susceptibility In 2 of 2 blood culture bottles drawn. Isolated from aerobic and anaerobic bottles Preliminary gram stain result of gram positive cocci in chains Result called to Dr. Mortensen by [facility] and results read back for confirmation on 03/23/2022 16:11:53 [facility] PT & PTTon 03-23-2022 aPTT Coag (PPP) [Time] 34.5 second(s) Normal 25.1-36.5 [facility] Comment on above: Result Comment: Para [...] the same coagulation reagent and instrumentation as [facility]. Currently there are no coagulation studies available worldwide for children to 14 days, and no normal ranges. Heparin therapeutic range (represented by Anti-Factor Xa activity of 0.2 - 0.4 U/mL) corresponds to PTT of 56.6 - 109.0 sec. Performed By: #### 2 213481, 2687131, 49934564, 8901225, 37675540, 7773629, 6367682 ####[facility] [address] [place] [address] INR Coag (PPP) [Relative time] 2.7 {INR} Invalid Interpretation Code [facility] Comment on above: Result Comment: INR results are specifically intended to assess patients stabilized on long-term Anticoagulation therapy suggested INR?s ?Less Intensive Anticoagulation? 2.0 ? 3.0Conventional Range 3.0 ? 4.5 Performed By: #### 2 281099, 3246557, 37479622, 9502498, 16122900, 3536192, 8941377 ####[facility] [address] [place] [address] PT Coag (PPP) [Time] 31.2 second(s) High 9.4-12.5 [facility] Comment on above: Result Comment: 15 [...] the same coagulation reagent and instrumentation as [facility] Currently there are no coagulation studies available worldwide for children to 14 days, and no normal ranges. Performed By: #### 2 458221, 6830846, 73291941, 7367433, 31858128, 3263936, 0006684 ####[facility] [address] [address] Procalcitoninon 03-23-2022 Procalcitonin 1.08 ng/mL High .00-.50 [facility] Comment on above: Result Comment: <0.5 [...] to 24 hours. Performed By: #### 2 196286, 79603227, 9521776, [id number], 0948599, 9806628 ####[facility] [address] [place] [address] Progress Note - Pharmacyon 1 05-23-2021 Progress Note - Pharmacy Normal [facility] Rapid COVID Antigen ([facility])on 03-23-2022 Rapid COV Int NEG Ctl Pass Normal [facility] Comment on above: Performed By: #### 1 [id number], [id number] ####[address] [address] Rapid COV Int POS Ctl Pass Normal [facility] Comment on above: Performed By: #### 1 8322388, [id number] ####[address] [address] SARS-CoV+SARS-CoV-2 (COVID-19) Ag IA.rapid Ql (Resp) Not detected Normal Not Detected [facility] Comment on above: Result Comment: The iDiDiD[employer]Sanergy System for Rapid Detection of SARS-CoV-2 is [...] other viruses or pathogens; and, in the [facility], this test is only authorized for the duration of the declaration that circumstances exist justifying the authorization of emergency use of in vitro diagnostics for detection and/or diagnosis of the virus that causes COVID-19 under Section 564(b)(1) of the Act, 21 U.S.C. ? 360bbb-3(b)(1), unless the authorization is terminated or revoked sooner. Performed By: #### 1 7375669, [id number] ####[place] [address] ADMITTED TO INTENSIVE CARE UNIT FOR CONDITION OF INTEREST:FIND:PT: NO Normal [facility] Comment on above: Performed By: #### 1 2715524, [id number] ####[place] [address] EMPLOYED IN A HEALTHCARE SETTING:FIND:PT: NO Normal [facility] Comment on above: Performed By: #### 1 9763669, [id number] ####[place] [address] FIRST TEST FOR CONDITION OF INTEREST:FIND:PT: YES Normal [facility] Comment on above: Performed By: #### 1 0041442, [id number] ####[facility] [address] [place] [address] HAS SYMPTOMS RELATED TO CONDITION OF INTEREST:FIND:PT: YES Normal [facility] Comment on above: Performed By: #### 1 9211032, [id number] ####[facility] [address] [place] [address] HOSPITALIZED FOR CONDITION OF INTEREST:FIND:PT: NO Normal [facility] Comment on above: Performed By: #### 1 4917358, [id number] ####[facility] [address] [place] [address] STATUS:FIND:PT: NO Normal [facility] Comment on above: Performed By: #### 1 4293583, [id number] ####[facility] [address] [place] [address] RESIDES IN A [facility] SETTING:FIND:PT: NO Normal [facility] Comment on above: Performed By: #### 1 3238023, [id number] ####[facility] [address] [place] [address] Reference Laboratory Testing Ordered By: Generated DomainUser on 03-23-2022 L. pneumophila 1 Ag IA Ql (U) Negative Invalid Interpretation Code Negative [facility] Comment on above: Result Comment: Pres umptive negative for L. pneumophila serogroup 1 antigen in urine, suggesting no recent or current infection. Legionnaires' disease cannot be ruled out since other serogroups and species may also cause disease. Performed at: [facility] [id number] MD Guevara Lewis Troponinon 03-23-2022 Troponin I.cardiac [Mass/Vol] 30.40 pg/mL High 10.10-27.10 [facility] Comment on above: Result Comment: The 95% CI (Confidence Interval) PPV (Positive Predictive Value) for myocardial infarction in females is 38 pg/mL, in males 51 pg/mL. The results should be used in conjunction with clinical conditions of myocardial infarction.(Access High Sensitivity Troponin I Instructions For Use, Andry Floresita, November 2017) Performed By: #### 2 586075, 17936530, 8191589, [id number], 5738104, 3809101 ####[address] [place] [address] Troponin I.cardiac [Mass/Vol] 31.00 pg/mL High 10.10-27.10 [facility] Comment on above: Result Comment: The 95% CI (Confidence Interval) PPV (Positive Predictive Value) for myocardial infarction in females is 38 pg/mL, in males 51 pg/mL. The results should be used in conjunction with clinical conditions of myocardial infarction.(Access High Sensitivity Troponin I Instructions For Use, Andry Floresita, November 2017) Performed By: #### 2 742094, 0318070, 60784918, 6205518, 63383753, 9290935, 7853462 ####[address] [address] UA With Cult Reflexon 2021 Bacteria LM Ql (Urine sed) TRACE Normal Trace [facility] Comment on above: Performed By: #### 2 495996, [id number] ####[address] [address] Bilirubin Ql (U) Negative Normal Negative [facility] Comment on above: Performed By: #### 2 695206, 42949843 ####[address] [address] Clarity (U) CLEAR Normal Clear [facility] Comment on above: Performed By: #### 2 755088, 72776837 ####[address] [address] Color (U) YELLOW Normal Yellow [facility] Comment on above: Performed By: #### 2 815203, 46134547 ####[address] [address] Epithelial cells.squamous LM.HPF (Urine sed) [#/Area] 3-4 Normal 0-2 [facility] Comment on above: Performed By: #### 2 056740, 86227244 ####[address] [place] [address] Glucose Test strip (U) [Mass/Vol] Negative Normal Negative [facility] Comment on above: Performed By: #### 2 257210, 31768024 ####[address] [address] Hemoglobin Ql (U) 1+ Abnormal Negative [facility] Comment on above: Performed By: #### 2 748555, 04302401 ####[address] [address] Ketones (U) [Mass/Vol] 1+ Abnormal Negative [facility] Comment on above: Performed By: #### 2 764081, 79277136 ####[address] [address] Gabbs.plasma/Gabbs. RBC (Bld) [Mass ratio] 4-20 Normal 0-3 [facility] Comment on above: Performed By: #### 2 597073, 01217398 ####[address] [address] Nitrite Ql (U) Negative Normal Negative [facility] Comment on above: Performed By: #### 2 883702, 21714859 ####[address] [address] pH (U) 6.0 [pH] Invalid Interpretation Code 5.0-9.0 [facility] Comment on above: Performed By: #### 2 758330, 97725822 ####[address] [address] Protein (U) [Mass/Vol] 2+ Abnormal Negative [facility] Comment on above: Performed By: #### 2 472232, 43749527 ####[address] [address] Specific gravity (U) [Rel density] 1.015 Invalid Interpretation Code 1.005-1.030 [facility] Comment on above: Performed By: #### 2 890139, 60523036 ####[address] [place] [address] Type of Urine collection method Clean Catch Normal [facility] Comment on above: Performed By: #### 2 766911, 92336934 ####[address] Urobilinogen Qn (U) 0.2 {Radha'U}/dL Normal 0.0-1.0 [facility] Comment on above: Performed By: #### 2 926296, 67494017 ####[facility] [address] [place], [place] [address] WBC Auto Ql (U) TRACE Abnormal Negative [facility] Comment on above: Performed By: #### 2 165360, 04410462 ####[address] WBC LM.HPF (Urine sed) [#/Area] 6-15 Abnormal 0-5 [facility] Comment on above: Performed By: #### 2 849800, 03111383 ####[address] [address] URINALYSISOrdered By: Marine Potter on 03-23-2022 Bacteria [...] Interpretation Code Negative [facility] UA Auto SS Gabbs.plasma/Gabbs. RBC (Bld) [Mass ratio] 4-20 /HPF Normal 0-3/HPF [facility] UA Auto SS Nitrite Ql (U) Negative (03/23/22 2:58 AM) Normal Negative [facility] UA Auto SS pH (U) 6.0 *NA* (03/23/22 2:58 AM) Invalid Interpretation Code 5.0 - 9.0 [facility] UA Auto SS Protein (U) [Mass/Vol] 2+ *ABN* (03/23/22 2:58 AM) Invalid Interpretation Code Negative [facility] UA Auto SS Specific gravity (U) [Rel density] 1.015 *NA* (03/23/22 2:58 AM) Invalid Interpretation Code 1.005 - 1.030 [facility] UA Auto SS UA Spec Desc Clean Catch (03/23/22 2:58 AM) Normal [facility] UA Auto SS Urobilinogen Qn (U) 0.3745303 {Radha'U}/dL Normal 0.0 - 1.0 EU/dL [facility] UA Auto SS WBC Auto Ql (U) Trace *ABN* (03/23/22 2:58 AM) Invalid Interpretation Code Negative [facility] UA Auto SS WBC LM.HPF (Urine sed) [#/Area] 6-15 /HPF Invalid Interpretation Code 0-5/HPF [facility] UA Auto SS XR Chest Single Viewon 03-23 XR Chest Single View Normal [facility] cefTRIAXone QUOC [Susc]Ordere d By: Lisha Tavares on 03-23-2022 Streptococcus salivarius Streptococcus salivarius [facility] eGFRon 03-23-2022 GFR/1.73 sq M.predicted among blacks MDRD (S/P/Bld) [Vol rate/Area] mL/min/{1.73_m2} Normal >=59 [facility] Comment on above: Order Comment: Order added by Discern Expert. Result Comment: eGFR is race adjusted. AA=. Performed By: #### 2 147648, 36962095, 2695721, [id number], 8171128, 4776669 ####[facility] [address] [place] [address] GFR/1.73 sq M.predicted among non-blacks MDRD (S/P/Bld) [Vol rate/Area] 54 mL/min/1.73 m2 Low >=59 [facility] Comment on above: Order Comment: Order added by Discern Expert. Result Comment: [employer] quan kidney disease could be indicated at eGFR's of less than 60 mL/min/1.73m2. Kidney failure is indicated at less than 15 mL/min/1.73m2. Performed By: #### 2 023215, 67204830, 2744180, [id number], 8379639, 0536220 ####[facility] [address] [place] [address] GFR/1.73 sq M.predicted among blacks MDRD (S/P/Bld) [Vol rate/Area] mL/min/{1.73_m2} Normal >=59 [facility] Comment on above: Order Comment: Order added by Discern Expert. Result Comment: eGFR is race adjusted. AA=. Performed By: #### 2 465926, 2173966, 13855738, 2137734, 03477596, 4442358, 6621156 ####[facility] [address] [place] [address] GFR/1.73 sq M.predicted among non-blacks MDRD (S/P/Bld) [Vol rate/Area] mL/min/{1.73_m2} Normal >=59 [facility] Comment on above: Order Comment: Order added by Discern Expert. Result Comment: [employer] quan kidney disease could be indicated at eGFR's of less than 60 mL/min/1.73m2. Kidney failure is indicated at less than 15 mL/min/1.73m2. Performed By: #### 2 675570, 9208665, 25053030, 6492638, 02964149, 5528991, 6244492 ####[address] [place] [address] Prot. Electroph, Blon 2021 Pathologist Review: ELECTRONICALLY NATHALIA CORADO M.D. [facility] Comment on above: Performed By: #### P ARA, VD25, PE #### [address] [place] [address] Core Cutter: Len Martínez MD #### BMP #### [facility] [address] [place] [address] Core Cutter: Zac Loera MD Prot. Elect-Interp NORMAL ELECTROPHORET IC PATTERN Normal [facility] Comment on above: Performed By: #### P THNCA, VD25, PE #### [address] [address] Core Cutter: Len Martínez MD #### BMP #### [facility] [address] [place] [address] Core Cutter: Zac Loera MD Prot. Electroph, Blon 2021 Albumin [Mass/Vol] 4.3 g/dL Normal 3.2-5.2 [facility] Comment on above: Performed By: #### P THNCA, VD25, PE #### [address] [address] Core Cutter: Len Martínez MD #### BMP #### [facility] [address] [place] [address] Core Cutter: Zac Loera MD Albumin, % 61 % Normal 45-65 [facility] Comment on above: Performed By: #### P THNCA, VD25, PE #### [address] [address] Core Cutter: Len Martínez MD #### BMP #### [facility] [address] [place] [address] Core Cutter: Zac Loera MD Lzirh-3-esrhtmiln 0.2 g/dL Normal 0.1-0.4 [facility] Comment on above: Performed By: #### P THNCA, VD25, PE #### [address] [address] Core Cutter: Len Martínez MD #### BMP #### [facility] [address] [place] [address] Core Cutter: Zac Loera MD Uiyse-5-hgayrewju,% 2 % Low 3-6 [facility] Comment on above: Performed By: #### P THNCA, VD25, PE #### [address] [address] Core Cutter: Len Martínez MD #### BMP #### [facility] [address] [place], [place] [address] Core Cutter: Zac Loera MD Fmvrz-9-lxeyauvfy 0.8 g/dL Normal 0.5-0.9 [facility] Comment on above: Performed By: #### P THNCA, VD25, PE #### [address] [address] Core Cutter: Len Martínez MD #### BMP #### [facility] [address] [place] [address] Core Cutter: Zac Loera MD Ajqsd-5-hhvajxtpw,% 12 % Normal 6-13 [facility] Comment on above: Performed By: #### P THNCA, VD25, PE #### [address] [address] Core Cutter: Len Martínez MD #### BMP #### [facility] [address] [place], [place] [address] Core Cutter: Zac Loera MD Beta-globulins 0.7 g/dL Normal 0.5-1.1 [facility] Comment on above: Performed By: #### P THNCA, VD25, PE #### [address] [id number] Core Cutter: Len Martínez MD #### BMP #### [facility] [address] [place], [place] [address] Core Cutter: Zac Loera MD Beta-globulins,% 10 % Low 11-19 [facility] Comment on above: Performed By: #### P THNCA, VD25, PE #### [address] [id number] Core Cutter: Len Martínez MD #### BMP #### [facility] [address] [place], [place] [address] Core Cutter: Zac Loera MD Gamma-globulins 1.1 g/dL Normal 0.5-1.5 [facility] Comment on above: Performed By: #### P THNCA, VD25, PE #### [address] [id number] Core Cutter: Len Martínez MD #### BMP #### [facility] [address] [place], [place] [address] Core Cutter: Zac Loera MD Gamma-globulins,% 15 % Normal 9-20 [facility] Comment on above: Performed By: #### P THNCA, VD25, PE #### [address] [id number] Core Cutter: Len Martínez MD #### BMP #### [facility] [address] [place], [place] [id number] Core Cutter: Zac Loera MD Total Prot. Sum 7.1 g/dL Normal 6.3-8.2 [facility] Comment on above: Performed By: #### P THNCA, VD25, PE #### [address] [id number] Core Cutter: Len Martínez MD #### BMP #### [facility] [address] [place] [address] Core Cutter: Zac Loera MD Total Prot. Sum,% 100 % Normal 98-102 [facility] Comment on above: Performed By: #### P ARA, VD25, PE #### [facility] [address] [place] [address] Core Cutter: Len Martínez MD #### BMP #### [facility] [address] [place] [address] Core Cutter: Zac Loera MD Basic Metabolic Panelon -0 Anion gap [Moles/Vol] 12 mmol/L 9 - 17 mmol/L [facility] Calcium [Mass/Vol] 9.7 mg/dL 8.6 - 10. 4 mg/dL [facility] Chloride [Moles/Vol] 102 mmol/L 98 - 10 7 mmol/L [facility] CO2 [Moles/Vol] 22 mmol/L 20 - 31 mmol/L [facility] Creatinine [Mass/Vol] 1.01 mg/dL High 0.5 - 0.9 mg/dL [facility] GFR >60 60 - PI NF mL/min [facility] GFR Non- 54 mL/min Low 60 - PINF mL/min [facility] GFR/1.73 sq M.predicted MDRD (S/P/Bld) [Vol rate/Area] [facility] Comment on above: Average GFR for 70 o r more years old: 75 mL/min/1.73sq m Chronic Kidney Disease: <60 mL/min/1.73sq m Kidney failure: <15 mL/min/1.73sq m eGFR calculated using average adult body mass. Additional eGFR calculator available at: http://www.Digly.Tracky/multiple_crcl_2012.htm Glucose [Mass/Vol] 130 mg/dL High 70 - 99 mg/dL [facility] Interpretation and review of laboratory results Abnormal [facility] Potassium [Moles/Vol] 4.3 mmol/L 3.7 - 5.3 mmol/L [facility] Sodium [Moles/Vol] 136 mmol/L 135 - 144 mmol/L [facility] Urea nitrogen (BldV) [Mass/Vol] 20 mg/dL 8 - 23 mg/dL [facility] Urea nitrogen/Creatinine (Bld) [Mass ratio] 20 9 - 20 [facility] Basic Metabolic Profon 01-07 (cont.) Normal [facility] Comment on above: Result Comment: Aver age GFR for 70 or more years old: 75 mL/min/1.73sq m Chronic Kidney Disease: <60 mL/min/1.73sq m Kidney failure: <15 mL/min/1.73sq m eGFR calculated using average adult body mass. Additional eGFR calculator available at: http://www.[employer] Internet/multiple_crcl_2012.htm Performed By: #### P ARA VD25, PE #### [facility] [employer] [address] [place], [place] [id number] Core Cutter: Len Martínez MD #### BMP #### [facility] [address] [id number] Core Cutter: Zac Loera MD Anion gap [Moles/Vol] 12 mmol/L Normal - [facility] Comment on above: Performed By: #### P ARA VD25, PE #### [facility] [address] [place], [place] [address] Core Cutter: Len Martínez MD #### BMP #### [facility] [address] [place] [address] Core Cutter: Zac Loera MD BUN/CRE Ratio 20 Normal - [facility] Comment on above: Performed By: #### P THEDOUARD VD25, PE #### [facility] [employer] [address] [place] [id number] Core Cutter: Len Martínez MD #### BMP #### [facility] [address] [place], [place] [phone] Core Cutter: Zac Loera MD Calcium [Mass/Vol] 9.7 mg/dL Normal 8.6-10.4 [facility] Comment on above: Performed By: #### P THNCA, VD25, PE #### [address] [id number] Core Cutter: Len Martínez MD #### BMP #### [facility] [address] [place], [place] [address] Core Cutter: Zac Loera MD Chloride [Moles/Vol] 102 mmol/L Normal 98-107 [facility] Comment on above: Performed By: #### P THNCA, VD25, PE #### [address] [id number] Core Cutter: Len Martínez MD #### BMP #### [facility] [address] [place], [place] [address]247[address] Core Cutter: Zac Loera MD CO2 [Moles/Vol] 22 mmol/L Normal 20-31 [facility] Comment on above: Performed By: #### P THNCA, VD25, PE #### [address] [phone] Core Cutter: Len Martínez MD #### BMP #### [facility] [address] [place], [place] 73747[address] Core Cutter: Zac Loera MD Creatinine [Mass/Vol] 1.01 mg/dL High 0.50-0.90 [facility] Comment on above: Performed By: #### P THNCA, VD25, PE #### [address] [address] Core Cutter: Len Martínez MD #### BMP #### [facility] [address] [place], [place] [phone] Core Cutter: Zac Loera MD GFR, Amer >60 Normal >60 [facility] Comment on above: Performed By: #### P THNCA, VD25, PE #### [address] [place] [address] Core Cutter: Len Martínez MD #### BMP #### [facility] [address] [place] [address] Core Cutter: Zac Loera MD GFR,non Amer 54 mL/min Low >60 [facility] Comment on above: Performed By: #### P THNCA, VD25, PE #### [address] [phone] Core Cutter: Len Martínez MD #### BMP #### [facility] [address] [place] [address] Core Cutter: Zac Loera MD Glucose [Mass/Vol] 130 mg/dL High 70-99 [facility] Comment on above: Performed By: #### P THNCA, VD25, PE #### [address] [address] Core Cutter: Len Martínez MD #### BMP #### [facility] [address] [place] [address] Core Cutter: Zac Loera MD Potassium [Moles/Vol] 4.3 mmol/L Normal 3.7-5.3 [facility] Comment on above: Performed By: #### P THNCA, VD25, PE #### [address] [address] Core Cutter: Len Martínez MD #### BMP #### [facility] [address] [place], [place] [phone] Core Cutter: Zac Loera MD Sodium [Moles/Vol] 136 mmol/L Normal 135-144 [facility] Comment on above: Performed By: #### P ARA, VD25, PE #### [address] [place], [place] [phone] Core Cutter: Len Martínez MD #### BMP #### [facility] [address] [place], [place] [phone] Core Cutter: Zac Loera MD Urea nitrogen [Mass/Vol] 20 mg/dL Normal 8-23 [facility] Comment on above: Performed By: #### P ARA, VD25, PE #### [address] [phone] Core Cutter: Len Martínez MD #### BMP #### [facility] [address] [place], [place] [phone] Core Cutter: Zac Loera MD PTH, Intacton 01-07-2022 PTH, Intact 78.3 pg/mL High 14.0-72.0 [facility] Comment on above: Result Comment: SAMP LES FROM PATIENTS ROUTINELY RECEIVING HIGH DOSE BIOTIN THERAPY MAY SHOW FALSELY DEPRESSED RESULTS. ADDITIONAL INFORMATION MAY BE REQUIRED FOR DIAGNOSIS. Performed By: #### Stuart BULLOCK VD25, PE #### [address] [phone] Core Cutter: Len Martínez MD #### BMP #### [facility] [address] [place], [place] [phone] Core Cutter: Zac Loera MD Interpretation and review of laboratory results Abnormal [facility] Pth Intact 78.3 pg/mL High 14 - 72 pg/mL [facility] Comment on above: SAMPLES FROM PATIENT S ROUTINELY RECEIVING HIGH DOSE BIOTIN THERAPY MAY SHOW FALSELY DEPRESSED RESULTS. ADDITIONAL INFORMATION MAY BE REQUIRED FOR DIAGNOSIS. [facility] Prot. Electroph, Blon 2021 Protein [Mass/Vol] 7.1 g/dL Normal 6.4-8.3 [facility] Comment on above: Performed By: #### P THGERIA, VD25, PE #### [address] [place], [place] [phone] Core Cutter: Len Martínez MD #### BMP #### [facility] [address] [place], [place] [phone] Core Cutter: Zac Loera MD Vitamin D 25 Hydroxyon 01-07 Vit D, 25-Hydroxy 58.1 ng/mL 29.9 - PIN F ng/mL [facility] Comment on above: Reference Range: Vitamin D status Range Deficiency <20 ng/mL Mild Deficiency 20-30 ng/mL Sufficiency 30-100 ng/mL Toxicity >100 ng/mL [facility] Vitamin D 25 OHon 01-07-2022 Vitamin D 25 OH 58.1 ng/mL Normal >29.9 [facility] Comment on above: Result Comment: Reference Range: Vitamin D status Range Deficiency <20 ng/mL Mild Deficiency 20-30 ng/mL Sufficiency 30-100 ng/mL Toxicity >100 ng/mL Performed By: #### Stuart BULLOCK, VD25, PE #### [address] [place], [place] [phone] Core Cutter: Len Martínez MD #### BMP #### [facility] [address] [place] [address] Core Cutter: Zac Loera MD Basic Metabolic Panelon 11-30 Anion gap [Moles/Vol] 8 mmol/L Low 9 - 17 mmol/L [facility] Calcium [Mass/Vol] 9.9 mg/dL 8.6 - 10. 4 mg/dL [facility] Chloride [Moles/Vol] 103 mmol/L 98 - 10 7 mmol/L [facility] CO2 [Moles/Vol] 26 mmol/L 20 - 31 mmol/L [facility] Creatinine [Mass/Vol] 1.15 mg/dL High 0.5 - 0.9 mg/dL [facility] GFR 56 mL/min Low 60 - PI NF mL/min [facility] GFR Non- 46 mL/min Low 60 - PINF mL/min [facility] GFR/1.73 sq M.predicted MDRD (S/P/Bld) [Vol rate/Area] [facility] Comment on above: Average GFR for 70 o r more years old: 75 mL/min/1.73sq m Chronic Kidney Disease: <60 mL/min/1.73sq m Kidney failure: <15 mL/min/1.73sq m eGFR calculated using average adult body mass. Additional eGFR calculator available at: http://www.[employer] Internet/multiple_crcl_2011.htm Glucose [Mass/Vol] 114 mg/dL High 70 - 99 mg/dL [facility] Interpretation and review of laboratory results Abnormal [facility] Potassium [Moles/Vol] 4.3 mmol/L 3.7 - 5.3 mmol/L [facility] Sodium [Moles/Vol] 137 mmol/L 135 - 144 mmol/L [facility] Urea nitrogen (BldV) [Mass/Vol] 20 mg/dL 8 - 23 mg/dL [facility] Urea nitrogen/Creatinine (Bld) [Mass ratio] 17 9 - 20 [facility] Basic Metabolic Profon 12-20 (cont.) Normal [facility] Comment on above: Result Comment: Aver age GFR for 70 or more years old: 75 mL/min/1.73sq m Chronic Kidney Disease: <60 mL/min/1.73sq m Kidney failure: <15 mL/min/1.73sq m eGFR calculated using average adult body mass. Additional eGFR calculator available at: http://www.[employer] Internet/multiple_crcl_2011.htm Performed By: #### B MP #### [facility] [address] [place] [address] Core Cutter: Zac Loera MD Anion gap [Moles/Vol] 8 mmol/L Low 9-17 [facility] Comment on above: Performed By: #### B MP #### [facility] [address] [place] [address] Core Cutter: Zac Loera MD BUN/CRE Ratio 17 Normal 9-20 [facility] Comment on above: Performed By: #### B MP #### [facility] [address] [place], [place] 1078[address] Core Cutter: Zac Loera MD Calcium [Mass/Vol] 9.9 mg/dL Normal 8.6-10.4 [facility] Comment on above: Performed By: #### B MP #### [facility] [address] [place] [address] Core Cutter: Zac Loera MD Chloride [Moles/Vol] 103 mmol/L Normal 98-107 [facility] Comment on above: Performed By: #### B MP #### [facility] [address] [place] [address] Core Cutter: Zac Loera MD CO2 [Moles/Vol] 26 mmol/L Normal 20-31 [facility] Comment on above: Performed By: #### B MP #### [facility] [address] [place] [address] Core Cutter: Zac Loera MD Creatinine [Mass/Vol] 1.15 mg/dL High 0.50-0.90 [facility] Comment on above: Performed By: #### B MP #### [facility] [address] [place] [address] Core Cutter: Zac Loera MD GFR, Amer 56 mL/min Low >60 [facility] Comment on above: Performed By: #### B MP #### [facility] [address] [place] [address] Core Cutter: Zac Loera MD GFR,non Amer 46 mL/min Low >60 [facility] Comment on above: Performed By: #### B MP #### [facility] [address] [place], [place] [phone] Core Cutter: Zac Loera MD Glucose [Mass/Vol] 114 mg/dL High 70-99 [facility] Comment on above: Performed By: #### B MP #### [facility] [address] [place] [address] Core Cutter: Zac Loera MD Potassium [Moles/Vol] 4.3 mmol/L Normal 3.7-5.3 [facility] Comment on above: Performed By: #### B MP #### [facility] [address] [place], [place] 48[address] Core Cutter: Zac Loera MD Sodium [Moles/Vol] 137 mmol/L Normal 135-144 [facility] Comment on above: Performed By: #### B MP #### [facility] [address] [place], [place] [address] Core Cutter: Zac Loera MD Urea nitrogen [Mass/Vol] 20 mg/dL Normal 8-23 [facility] Comment on above: Performed By: #### B MP #### [facility] [address] [place], [place] 1565[address] Core Cutter: Zac Loera MD Coding Summary.on 12-17-2021 Coding Summary. Normal [facility] Coding Summary.on 11-17-2021 Coding Summary. Normal [facility] Auto Diffon 11-14-2021 Basophils/100 WBC (Bld) 0.5 % Normal 0.0-2.0 [facility] Comment on above: Order Comment: Order Added by Discern Expert. Performed By: #### 2 557409, 0516481, 3377202, 08219227, [id number] ####[facility] [address] [place] [address] Basophils/Leukocytes Auto (Bld) [Pure # fraction] 0.1 E9/L Normal 0.0-0.2 [facility] Comment on above: Order Comment: Order Added by Discern Expert. Performed By: #### 2 364094, 8545017, 4670496, 04946133, 39387699 ####[facility] [address] [place] [address] Eosinophils/100 WBC (Bld) 1.8 % Normal 0.0-8.0 [facility] Comment on above: Order Comment: Order Added by Discern Expert. Performed By: #### 2 850962, 4632200, 2087173, 25048266, [id number] ####[address] [address] Eosinophils/Leukocytes Auto (Bld) [Pure # fraction] 0.2 E9/L Normal 0.0-0.5 [facility] Comment on above: Order Comment: Order Added by Discern Expert. Performed By: #### 2 279695, 5440841, 6517747, 64247134, 96293881 ####[facility] [address] [place] [address] Lymphocytes/100 WBC (Bld) 9.1 % Low 14.0-50.0 [facility] Comment on above: Order Comment: Order Added by Discern Expert. Performed By: #### 2 970916, 2354961, 0166406, 06233883, [id number] ####[address] [address] Lymphocytes/Leukocytes Auto (Bld) [Pure # fraction] 1.2 E9/L Normal 1.0-4.0 [facility] Comment on above: Order Comment: Order Added by Discern Expert. Performed By: #### 2 457645, 0405400, 9732107, 85795727, 77239127 ####[facility] [address] [place] [address] Monocytes/100 WBC (Bld) 11.3 % Normal 4.0-14.0 [facility] Comment on above: Order Comment: Order Added by Discern Expert. Performed By: #### 2 133845, 8062152, 8179572, 51420150, 78911348 ####[address] [place] [address] Monocytes/Leukocytes Auto (Bld) [Pure # fraction] 1.4 E9/L High 0.2-1.0 [facility] Comment on above: Order Comment: Order Added by Robert Expert. Performed By: #### 2 446439, 2865846, 6771355, 30149296, 42773006 ####[address] [place] [address] Neutrophils/100 WBC (Bld) 77.3 % High 36.0-75.0 [facility] Comment on above: Order Comment: Order Added by Robert Expert. Performed By: #### 2 454506, 7330123, 9490053, 30091461, 28302046 ####[address] [address] Neutrophils/Leukocytes Auto (Bld) [Pure # fraction] 9.9 E9/L High 2.0-7.5 [facility] Comment on above: Order Comment: Order Added by Robert Expert. Performed By: #### 2 616576, 8591660, 4331721, 13085450, 44883952 ####[address] [place] [address] BMPon 11-14-2021 Creatinine [Mass/Vol] 0.9 mg/dL Normal 0.5-1.3 [facility] Comment on above: Performed By: #### 2 976112, 7549526, 6892663, 10224998, 41295704 ####[address] [place] [address] Urea nitrogen [Mass/Vol] 19 mg/dL Normal 5-21 [facility] Comment on above: Performed By: #### 2 848205, 7160791, 5130417, 53171186, 91556553 ####[address] [address] Urea nitrogen/Creatinine [Mass ratio] 21 No Units High 10-20 [facility] Comment on above: Performed By: #### 2 168248, 0013354, 1092125, 80529899, 94586011 ####[facility] [address] [place] [address] Anion gap [Moles/Vol] 15 mmol/L Normal 6-16 [facility] Comment on above: Performed By: #### 2 832815, 1151634, 8596899, 52660130, 91177941 ####[facility] [address] [place] [address] Calcium [Mass/Vol] 9.9 mg/dL Normal 8.9-11.1 [facility] Comment on above: Performed By: #### 2 223017, 6874107, 2136983, 76631178, 05149753 ####[facility] [address] [place] [address] Chloride [Moles/Vol] 99 mmol/L Low 101-111 [facility] Comment on above: Performed By: #### 2 245357, 9862612, 7937021, 90174250, 56414210 ####[facility] [address] [place] [address] CO2 [Moles/Vol] 22 mmol/L Normal 21-31 [facility] Comment on above: Performed By: #### 2 366630, 6974112, 6745303, 59773368, 04075956 ####[facility] [address] [place] [address] Glucose [Mass/Vol] 101 mg/dL Normal 55-199 [facility] Comment on above: Result Comment: If t his glucose result represents a fasting glucose, interpretation should refer to the following reference range: 55-99 mg/dL Performed By: #### 2 329501, 2934402, 4947266, 64549752, 90468188 ####[facility] [address] [place] [address] Potassium [Moles/Vol] 4.5 mmol/L Normal 3.5-5.3 [facility] Comment on above: Performed By: #### 2 187770, 2729208, 7461919, 24157314, 55457018 ####[facility] [address] [place] [address] Sodium [Moles/Vol] 131 mmol/L Low 135-145 [facility] Comment on above: Performed By: #### 2 680202, 2566252, 5057453, 36362708, 10064303 ####[facility] [address] [place] [address] CBC w/ Auto Diffon 2 Erythrocyte distribution width (RBC) [Ratio] 13.1 % Normal 10.9-14.2 [facility] Comment on above: Performed By: #### 2 208971, 8745938, 9552335, 83362037, 69398284 ####[facility] [address] [place] [address] Hematocrit (Bld) [Volume fraction] 36.1 % Normal 34.0-46.0 [facility] Comment on above: Performed By: #### 2 441209, 4032388, 1456558, 10402732, 60331641 ####[address] [address] Hemoglobin (Bld) [Mass/Vol] 11.8 g/dL Low 12.0-16.0 [facility] Comment on above: Performed By: #### 2 553255, 6413613, 1455067, 15274480, 14373879 ####[facility] [address] [place] [address] MCH (RBC) [Entitic mass] 29.4 pg Normal 27.0-34.0 [facility] Comment on above: Performed By: #### 2 631309, 8481783, 1060377, 92040258, 97067988 ####[facility] [address] [place] [address] MCHC (RBC) [Mass/Vol] 32.7 g/dL Normal 31.4-36.0 [facility] Comment on above: Performed By: #### 2 330464, 4717703, 9800029, 03323710, 94827982 ####[address] [place] [address] MCV (RBC) [Entitic vol] 89.7 fL Normal 80.0-100.0 [facility] Comment on above: Performed By: #### 2 071994, 5310194, 1537334, 35416271, 32799935 ####[address] [address] Platelet mean volume (Bld) [Entitic vol] 7.5 fL Normal 6.4-10.8 [facility] Comment on above: Performed By: #### 2 478292, 3742768, 4831942, 96716917, 37632245 ####[address] [address] Platelets (Bld) [#/Vol] 340.0 E9/L Normal 150.0-500.0 [facility] Comment on above: Performed By: #### 2 315442, 8783698, 1349393, 81204370, 00003157 ####[address] [address] RBC (Bld) [#/Vol] 4.0 E12/L Low 4.3-5.9 [facility] Comment on above: Performed By: #### 2 576190, 1515067, 8769401, 13000529, 20406390 ####[address] [address] WBC corrected for nucl RBC Auto (Bld) [#/Vol] 12.8 E9/L High 4.0-11.0 [facility] Comment on above: Performed By: #### 2 998360, 1452565, 6631459, 32895534, 76546654 ####[address] [place] [address] CHEMISTRYOrdered By: SYSTEM SYSTEM on 11-14-2021 Anion [...] rate/Area] mL/min/1.73 m2 Normal >=59mL/min/ 1.73 m2 [facility] S GFR/1.73 sq M.predicted among non-blacks MDRD (S/P/Bld) [Vol rate/Area] mL/min/1.73 m2 Normal >=59mL/min/ 1.73 m2 [facility] S Glucose [Mass/Vol] 101 mg/dL Normal 55 - 199 mg/dL [facility] Potassium [Moles/Vol] 4.5 mmol/L Normal 3.5 - 5.3 mmol/L [facility] Sodium [Moles/Vol] 131 mmol/L Low 135 - 145 mmol/L [facility] Troponin I.cardiac [Mass/Vol] 12.30 pg/mL Normal 10.10 - 27.10 pg/mL [facility] Urea nitrogen [Mass/Vol] 19 mg/dL Normal 5 - 21 mg/dL [facility] Remisol Urea nitrogen/Creatinine [Mass ratio] 21 mg/mg High 10 - 20 [facility] Remisol Consent for Treatmenton 10-29 Consent for Treatment [id number]: 127 Normal Deandre [facility] ED Clinical Summaryon 2021 ED Clinical Summary Normal Ted cardona [facility] ED Note-Nursingon 11-14-2021 ED Note-Nursing pt came up to nurses station and stated she wanted to go home. pt was asked to stay to sign paperwork and pt ignored the nurse and walked out of the ED with her . ED made aware. Normal [facility] ED Note-Nursing pt arrived to ed fro m home with her c/o fever of 99.5F and persistent cough since monday. pt denies any SOB or CP. pt has been taking robitussin and musinex at home. pt has a non productive cough with clear lung sounds throughout. VSS Normal [facility] ED Note-Physicianon 11-15-19 ED Note-Physician Normal [facility] Comment on above: Result Comment: Elec tronically Signed By: Dodie Lee, Martínez Christianson\.br\Date and Time Signed: 11/14/21 06:46 EDT ED Patient Education Noteon 11-14-2021 ED Patient Education Note Normal [facility] ED Patient Summaryon 022 ED Patient Summary Normal [facility] HEMATOLOGYOrdered By: SYSTEM SYSTEM on 11-14-2021 [...] 36.1 % Normal 34.0 - 46.0 % [facility]eAutoSS Hemoglobin (Bld) [Mass/Vol] 11.8 g/dL Low [...] 10.8 fL [facility]eAutoSS Platelets (Bld) [#/Vol] 340.0 E9/L Normal 150. 0 - 500.0 E9/L [facility] HemeAutoSS RBC (Bld) [#/Vol] 4.0 E12/L Low 4.3 - 5.9 E12/L [facility] HemeAutoSS WBC corrected for nucl RBC Auto (Bld) [#/Vol] 12.8 E9/L High 4.0 - 11.0 E9/L [facility] Troponin 0 Hr.on 11-14-2021 Troponin I.cardiac [Mass/Vol] 12.30 pg/mL Normal 10.10-27.10 [facility] Comment on above: Result Comment: The 95% CI (Confidence Interval) PPV (Positive Predictive Value) for myocardial infarction in females is 38 pg/mL, in males 51 pg/mL. The results should be used in conjunction with clinical conditions of myocardial infarction.(Access High Sensitivity Troponin I Instructions For Use, Andry Floresita, November 2017) Performed By: #### 2 093041, 1883210, 4809718, 63051805, 61124160 ####[facility] [address] [place] [address] XR Chest Single Viewon 11-14 XR Chest Single View Normal Fish fide [facility] eGFRon 11-14-2021 GFR/1.73 sq M.predicted among blacks MDRD (S/P/Bld) [Vol rate/Area] mL/min/{1.73_m2} Normal >=59 [facility] Comment on above: Order Comment: Order added by Discern Expert. Result Comment: eGFR is race adjusted. AA=. Performed By: #### 2 358816, 9316805, 4651803, 56443713, 68178499 ####[facility] [address] [place] [address] GFR/1.73 sq M.predicted among non-blacks MDRD (S/P/Bld) [Vol rate/Area] mL/min/{1.73_m2} Normal >=59 [facility] Comment on above: Order Comment: Order added by Discern Expert. Result Comment: [employer] quan kidney disease could be indicated at eGFR's of less than 60 mL/min/1.73m2. Kidney failure is indicated at less than 15 mL/min/1.73m2. Performed By: #### 2 [id number] ####[facility] [address] [place] [address] Ambulatory Visit Summaryon 0 11-10-2021 Ambulatory Visit Summary Normal [facility] Consent for Treatmenton 10-29 Consent for Treatment [id number] :127 Normal [facility] Family Medicine Office/Clini c Noteon 11-10-2021 Family Medicine Office/Clinic Note Normal [facility] Comment on above: Result Comment: Elec tronically Signed By: Echo MANDEL CNP\Date and Time Signed: 11/10/21 14:31 EDT MICRO OTHER TESTSOrdered By: Rhett Miranda on 11-10-2021 Rapid COV Int NEG Ctl Pass (11/10/21 2:56 PM) Normal [facility] [place] Rapid COV Int POS Ctl Pass (11/10/21 2:56 PM) Normal [facility] [place] SS SARS-CoV-2 (COVID-19) RNA ZANDRA+probe Ql (Unsp spec) Not Detected (11/10/21 2:56 PM) Normal Not Detected [facility] [place] SS Patient Educationon 11-11-19 Patient Education Normal [facility] Rapid COVID Antigen [place]on 11-10-2021 Rapid COV Int NEG Ctl Pass Normal [facility] Comment on above: Performed By: #### 2 [id number] ####[facility] [address] [place] [address] Rapid COV Int POS Ctl Pass Normal [facility] Comment on above: Performed By: #### 2 [id number] ####[facility] [address] [place] [address] SARS-CoV-2 (COVID-19) RNA ZANDRA+probe Ql (Unsp spec) Not detected Normal Not Detected [facility] Comment on above: Result Comment: The iDiDiDitor? System for Rapid Detection of SARS-CoV-2 is [...] or revoked sooner. Performed By: #### 2 [id number] ####[address] [address] Employed in Healthcare NO [facility] Comment on above: Performed By: #### 2 [id number] ####[address] [place] [address] First Test Unknown [facility] Comment on above: Performed By: #### 2 [id number] ####[address] [place] [address] Hospitalized? NO [facility] Comment on above: Performed By: #### 2 [id number] ####[address] [place] [address] ICU NO [facility] Comment on above: Performed By: #### 2 [id number] ####[address] [place] [address] ? NO [facility] Comment on above: Performed By: #### 2 [id number] ####[address] [place] [address] Resides in a Congregate Care Setting NO [facility] Comment on above: Performed By: #### 2 [id number] ####[address] [place] [address] Symptomatic as defined by [facility] YES [facility] Comment on above: Performed By: #### 2 [id number] ####[facility] [place] [address] BUNon 08-11-2021 Urea nitrogen [Mass/Vol] 24.0 mg/dL Critically high 7.0-18.0 [facility] Comment on above: Performed By: #### B UN, CREA #### [facility] [address] [address] [address] Román Frausto CREATININEon 08-11-2021 Creatinine [Mass/Vol] 1.15 mg/dL Critically high 0.52-1.04 [facility] Comment on above: Performed By: #### B UN, CREA #### [facility] [address] [address] [address] Romná Frausto EGFR-AF CITIZEN OF [place] 56 mL/min/1.73m2 Critically low >=60 [facility] Comment on above: Performed By: #### B UN, CREA #### [facility] [address] [address] [address] Román Frausto EGFR-NON AF CITIZEN OF [place] 46 mL/min/1.73m2 Critically low >=60 [facility] Comment on above: Performed By: #### B UN, CREA #### [facility] [address] [place] [address] Dr. Román Frausto CT LSPINE WO W CONon 022 CT LSPINE WO W CON EXAMINATION: CT TSPI NE WO W CON, CT LSPINE WO W CON HISTORY: Secondary malignant neoplasm of bone COMPARISON: No relevant comparison available. FINDINGS: BONES: T5-6: Prominent sclerosis and anterior margin of the contiguous endplates suspected secondary to [id number] contact and degenerative changes. T7: Complete loss [...] by: PIEDAD LAUREANO Date: 2021-08-11 10:49 Normal [facility] ANES POSTPROC EVALon 021 ANES POSTPROC EVAL HNO ID: [id number] Author: Isabel Tirado MD Service: Anesthesiology Author Type: Anesthesiologist Type: Anesthesia Postprocedure Evaluation Filed: 12/03/2020 11:29 AM Note Text: POST ANESTHESIA EVALUATION NOTE : 1945 Procedure Summary Date: 12/03/20 Room / Location: ENDO 01 / AV ENDO Anesthesia Start: [...] December 03, 2020 TIME: 11:29 AM CSN: [id number] [facility] ANES PRE-OPon 12-03-2020 ANES PRE-OP HNO ID: [id number] Author: Isabel Tirado MD Service: Anesthesiology Author [...] December 03, 2020 TIME: 10:09 AM CSN: [id number] Normal [facility] HISTORY PHYSICALon HISTORY PHYSICAL HNO ID: [id number] Author: Marty Mcmanus MD Service: General Surgery Author Type: Physician Type: HANDP Filed: 12/03/2020 9:13 AM Note Text: Here for EGD PE: HEENT: PERRLA Neck: supple Chest: Clear Heart:RRR Abdomen: Benign Neuro: wnl Back, spine, extremities: wnl Normal [facility] Basic Metabolic Panlon 12-02 Anion gap [Moles/Vol] 10 mmol/L Normal 9-18 [facility] Calcium [Mass/Vol] 10.2 mg/dL Normal 8.5-10.2 [facility] Chloride [Moles/Vol] 103 mmol/L Normal 97-105 [facility] CO2 [Moles/Vol] 25 mmol/L Normal 22-30 [facility] Creatinine [Mass/Vol] 0.88 mg/dL Normal 0.58-0.96 [facility] eGFR- Amer. >60 Normal [facility] eGFR-All Other Races >60 Normal [facility] Comment on above: Result Comment: eGFR [...] GFR. Glucose [Mass/Vol] 85 mg/dL Normal 74-99 [facility] Comment on above: Result Comment: The [place] Diabetes Association (ADA) provides guidance for cutoff [...] Standards of Medical Care in Diabetes 2016, [place] Diabetes Association. Diabetes Care. 2016.39(Suppl 1). Potassium [Moles/Vol] 4.8 mmol/L Normal 3.7-5.1 [facility] Sodium [Moles/Vol] 138 mmol/L Normal 136-144 [facility] Urea nitrogen [Mass/Vol] 24 mg/dL High 7-21 [facility] HISTORY PHYSICALon HISTORY PHYSICAL HNO ID: [id number] Author: Sherin Ham APRN.COMPOUND FILLER Service: ? Author Type: Nurse Specialist Type: [...] hands occasionaly. No history of TIA's, stroke, COMPOUND FILLER tumor, impaired sensorium, hemiplegia, paraplegia or quadraplegia. No neurological symptoms or problems. Respiratory: No history of current cough or dyspnea, or pneumonia in the past 6 weeks. No history of respiratory/pulmonary symptoms or problems. 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 Endocrine: Positive for: hypothyroidism (takes med daily). Hematology: No history of bleeding or clotting disorder. Patient is not taking anti-coagulation or platelet medications. No history of hematological symptoms or problems. Oncology: H/O Bilateral Breast CA had rigttMastectomy 1997 had radiation and chemotherapy Psych: No history [...] ICD (implantable cardioverter-defibrillat or) in place 2015 [place] - Neuropathy - Nonischemic congestive cardiomyopathy (HCC) - Other hyperlipidemia PAST SURGICAL HISTORY Procedure Laterality Date - CHOLECYSTECTOMY - COLONOSCOPY - EGD - FOOT SURGERY HX Left some excess bones removed - KNEE ARTHROSCOPY Right - MASTECTOMY HX Right FAMILY HISTORY Problem Relation Age of Onset - Diabetes Mother - Hypertension Mother - other ([place]) Father - Cancer Sister Social History Tobacco [...] fluvoxaMINE (SURINDER (more content not included)... 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 (more content not included)... Normal [facility] CNOVon 07-03-2020 CNOV Office Visit (LOORRM ) -------- MARIA ALEJANDRAYENNY ([id number]) 1945 F Date Time Provider Department 07/03/20 [...] [M17.0] Order(s):Large Joint Arthro/Inj: bilateral knee joints [[id number]] Order #: [id number] [] lidocaine (PF) 10 mg/mL (1 %) 4 mL injection (XYLOCAINE)Disp: Rfl: [] triamcinolone acetonide 40 mg (more content not included)... [facility] - [facility] 4 Viewso n 01-08-2020 IMPRESSION: Osteoarthritis right knee, severe in the lateral compartment. Osteoarthritis left knee, moderate in the lateral compartment. Display Artist: PSCB Transcribe Date/Time: Jan 08 2020 9:46A Dictated by : LAISHA NUÑEZ MD This examination was interpreted and the report reviewed and electronically signed by: LAISHA NUÑEZ MD on Jan 08 2020 9:47AM [facility] DIVISION OF RADIOLOGY * * *Final Report* * * DATE OF EXAM: Jan 08 2020 9:20AM LZX 5618 - XR KNEE 4V AP/PA/LAT/[facility] SUZY / PROCEDURE REASON: Pain * [...] involving either knee. DIVISION OF RADIOLOGY Provider, Abimael manzano [employer] - 01/08/2020 * * *Final Report* * * DATE OF EXAM: Jan 08 2020 9:20AM LZX 5618 - XR KNEE 4V AP/PA/LAT/[facility] SUZY / PROCEDURE REASON: Pain * [...] left knee, moderate in the lateral compartment. 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 [place], [place] [address] Fax: SURGICAL PATHOLOGY CONSULTATIONPatient Name: Miroslava FELIX Rec: [id number] Number: [id number]: 03/27/2017Received: 03/27/2017Reported: 03/28/2017 09:51-- Diagnosis --1. COLON, RANDOM BIOPSIES:- NORMAL COLONIC MUCOSA.2. COLON, BIOPSIES:- ADENOMATOUS POLYP.Zack Rand,Electronically Signed Out sls03/28/2017Clinical InformationPre-op Diagnosis: FECAL OCCULT BLOOD Operative Findings: RANDOM COLON BX'S; COLON POLYPOperation Performed: COLONOSCOPY WITH BIOPSY Source of Specimen1: RANDOM COLON BX'S2: COLON POLYPGross Description1. YENNY MARIA ALEJANDRA, RANDOM COLON BX'S Multiple ely-white tissuefragments from [...] ormalignancy.2. The biopsies demonstrate adenomatous polyp. Normal [facility] Vital Signs Date Time Vital Sign Value Performing Clinician Faci lity 03-19-2024 16:11-0500 Body mass index (BMI) [Ratio] 33.6 kg/m2 Adrian Purcell NP Work Phone: [facility] 03-19-2024 16:11-0500 Body weight 100.25 kg Adrian Purcell NP Work Phone: [facility] 03-19-2024 16:11-0500 Diastolic blood pressure 76 mm[Hg] Adrian Purcell NP Work Phone: [facility] 03-19-2024 16:11-0500 Heart rate 67 /min Adrian Purcell NP Work Phone: [facility] 03-19-2024 16:11-0500 Systolic blood pressure 137 mm[Hg] Adrian Purcell NP Work Phone: [facility] 02-01-2024 10:08-0400 Body height 175.3 cm Rambo Duke DO Work Phone: [facility] 02-01-2024 10:08-0400 Body mass index (BMI) [Ratio] 32.77 kg/m2 Rambo Ansely DO Work Phone: [facility] 02-01-2024 10:08-0400 Body weight 100.7 kg Rambo Ansley DO Work Phone: [facility] 02-01-2024 10:08-0400 Diastolic blood pressure 82 mm[Hg] Rambo Ansley DO Work Phone: [facility] 02-01-2024 10:08-0400 Heart rate 70 /min Rambo Ansley DO Work Phone: [facility] 02-01-2024 10:08-0400 SaO2% (BldA) [Mass fraction] 94 % Rambo Ansley DO Work Phone: [facility] 02-01-2024 10:08-0400 Systolic blood pressure 110 mm[Hg] Rambo Ansley DO Work Phone: [facility] 01-24-2024 13:36-0400 Body mass index (BMI) [Ratio] 31.47 kg/m2 Adrian Purcell IMAGE PROCESSING ENGINEER Work Phone: [facility] 01-24-2024 13:36-0400 Body weight 93.89 kg Adrian Purcell IMAGE PROCESSING ENGINEER Work Phone: [facility] 01-24-2024 13:36-0400 Diastolic blood pressure 80 mm[Hg] Adrian Purcell IMAGE PROCESSING ENGINEER Work Phone: [facility] 01-24-2024 13:36-0400 Heart rate 81 /min Adrian Purcell IMAGE PROCESSING ENGINEER Work Phone: [facility] 01-24-2024 13:36-0400 Systolic blood pressure 127 mm[Hg] Adrian Purcell IMAGE PROCESSING ENGINEER Work Phone: [facility] 12-26-2023 09:15-0400 Body height 172.7 cm Adrian Purcell IMAGE PROCESSING ENGINEER Work Phone: [facility] 12-26-2023 09:15-0400 Body mass index (BMI) [Ratio] 34.21 kg/m2 Adrian Purcell IMAGE PROCESSING ENGINEER Work Phone: [facility] 12-26-2023 09:15-0400 Body weight 102.06 kg Adrian Purcell IMAGE PROCESSING ENGINEER Work Phone: [facility] 12-26-2023 09:15-0400 Diastolic blood pressure 78 mm[Hg] Adrian Purcell IMAGE PROCESSING ENGINEER Work Phone: [facility] 12-26-2023 09:15-0400 Heart rate 74 /min Adrian Purcell IMAGE PROCESSING ENGINEER Work Phone: [facility] 12-26-2023 09:15-0400 Systolic blood pressure 140 mm[Hg] Adrian Purcell IMAGE PROCESSING ENGINEER Work Phone: [facility] 07-11-2023 13:37-0400 Body height 175.3 cm Rambo Ansley DO Work Phone: [facility] 07-11-2023 13:37-0400 Body mass index (BMI) [Ratio] 33.82 kg/m2 Rambo Ansley DO Work Phone: [facility] 07-11-2023 13:37-0400 Body weight 103.87 kg Rambo Ansley DO Work Phone: [facility] 07-11-2023 13:37-0400 Diastolic blood pressure 90 mm[Hg] Rambo Ansley DO Work Phone: [facility] 07-11-2023 13:37-0400 Heart rate 70 /min Rambo Ansley DO Work Phone: [facility] 07-11-2023 13:37-0400 SaO2% (BldA) [Mass fraction] 100 % Rambo Ansley DO Work Phone: [facility] 07-11-2023 13:37-0400 Systolic blood pressure 152 mm[Hg] Rambo Ansley DO Work Phone: [facility] 06-21-2023 11:54-0500 Body height 173.99 cm MD Tika Joy Work Phone: [facility] 06-21-2023 11:54-0500 Body mass index (BMI) [Ratio] 34.4 kg/m2 MD Tika Joy Work Phone: [facility] 06-21-2023 11:54-0500 Body weight 104.32 kg MD Tika Joy Work Phone: [facility] 10-04-2022 09:29-0400 Blood Pressure Location Aron COOK [facility] 10-04-2022 09:29-0400 Diastolic blood pressure 81 mm[Hg] Aron COOK [facility] 10-04-2022 09:29-0400 Heart rate 65 /min Aron COOK [facility] 10-04-2022 09:29-0400 Systolic blood pressure 184 mm[Hg] Aron COOK [facility] 04-19-2022 09:29-0500 Blood Pressure Location Aron COOK [facility] 04-19-2022 09:29-0500 Diastolic blood pressure 82 mm[Hg] Aron COOK [facility] 04-19-2022 09:29-0500 Heart rate 77 /min Aron COOK [facility] 04-19-2022 09:29-0500 Systolic blood pressure 132 mm[Hg] Aron COOK [facility] 04-11-2022 14:24-0500 Blood Pressure Location Wilfred London [facility] 04-11-2022 14:24-0500 Diastolic blood pressure 59 mm[Hg] Wilfred Christofferson [facility] 04-11-2022 14:24-0500 Heart rate 71 /min Wilfred Christofferson [facility] 04-11-2022 14:24-0500 Respiratory rate 18 /min Wilfred Marieofferson [facility] 04-11-2022 14:24-0500 SaO2% (BldA) [Mass fraction] 96 % Wilfred Marieoffnico [facility] 04-11-2022 14:24-0500 Systolic blood pressure 119 mm[Hg] Wilfred Christofferson [facility] 03-28-2022 15:29-0500 Hourly Rounding Kris MARIIA [facility] 03-28-2022 15:29-0500 Promise to Return Kris MARIIA [facility] 03-28-2022 14:29-0500 Hourly Rounding Kris MARIIA [facility] 03-28-2022 14:29-0500 Promise to Return Kris MARIIA [facility] 03-28-2022 13:14-0500 Hourly Rounding Kris MARIIA [facility] 03-28-2022 13:14-0500 Promise to Return Kris MARIIA [facility] 03-28-2022 11:17-0500 Diastolic blood pressure 88 mm[Hg] Kris MARIIA [facility] 03-28-2022 11:17-0500 Systolic blood pressure 174 mm[Hg] Kris MARIIA [facility] 03-28-2022 11:11-0500 Body temperature 97.52 [degF] Kris MARIIA [facility] 03-28-2022 11:11-0500 Diastolic blood pressure 88 mm[Hg] Kris MARIIA [facility] 03-28-2022 11:11-0500 Heart rate 66 /min Kris MARIIA [facility] 03-28-2022 11:11-0500 Mean blood pressure 117 mm[Hg] Kris MARIIA [facility] 03-28-2022 11:11-0500 SaO2% (BldA) [Mass fraction] 96 % Kris MARIIA [facility] 03-28-2022 11:11-0500 Systolic blood pressure 174 mm[Hg] Kris MARIIA [facility] 03-28-2022 07:49-0500 Body temperature 98.06 [degF] Kris MARIIA [facility] 03-28-2022 07:49-0500 Diastolic blood pressure 81 mm[Hg] Kris MARIIA [facility] 03-28-2022 07:49-0500 Heart rate 79 /min Kris MARIIA [facility] 03-28-2022 07:49-0500 Mean blood pressure 104 mm[Hg] Kris MARIIA [facility] 03-28-2022 07:49-0500 SaO2% (BldA) [Mass fraction] 95 % Kris MARIIA [facility] 03-28-2022 07:49-0500 Systolic blood pressure 151 mm[Hg] Kris MARIIA [facility] 03-28-2022 07:48-0500 Heart rate 80 /min Krisngoc OROPEZASLIN [facility] 03-28-2022 07:48-0500 SaO2% (BldA) [Mass fraction] 96 % Krisngoc OROPEZASLIN [facility] 03-28-2022 01:00-0500 Body temperature 98.06 [degF] Krisngoc OROPEZASLIN [facility] 03-28-2022 01:00-0500 Mean blood pressure 105 mm[Hg] Krisngoc OROPEZASLIN [facility] 03-28-2022 01:00-0500 Respiratory rate 17 /min Krisngoc OROPEZASLIN [facility] 03-27-2022 23:09-0500 FIO2 40 % Krisngoc CHIANG [facility] 03-27-2022 21:00-0500 Mean blood pressure 103 mm[Hg] Krisngoc OROPEZASLIN [facility] 03-27-2022 21:00-0500 Respiratory rate 18 /min Kris OROPEZASLIN [facility] 03-27-2022 20:05-0500 Mean blood pressure 110 mm[Hg] Krisngoc OROPEZASLIN [facility] 03-27-2022 17:48-0500 Blood Pressure Location Krisngoc OROPEZASLIN [facility] 03-27-2022 17:48-0500 BP/Pulse Patient Position Krisngoc OROPEZASLIN [facility] 03-27-2022 17:48-0500 Mean blood pressure 101 mm[Hg] Kris MARIIA [facility] 03-27-2022 15:53-0500 Respiratory rate 16 /min Kris MARIIA [facility] 03-23-2022 14:00-0500 Respiratory rate 19 /min Kris MARIIA [facility] 03-23-2022 04:27-0500 Heart rate 71 /min Kris MARIIA [facility] 03-23-2022 04:00-0500 Respiratory rate 11 /min Kris MARIIA [facility] 03-23-2022 03:00-0500 Respiratory rate 18 /min Kris MARIIA [facility] 03-23-2022 00:48-0500 gluc 112 mg/dL Kris MARIIA [facility] 03-23-2022 00:48-0500 gluc Krisngoc OROPEZASLIN [facility] 03-23-2022 00:46-0500 Heart rate 83 /min Krisngoc OROPEZASLIN [facility] 11-14-2021 01:00-0400 Body temperature 98.42 [degF] [facility] 11-14-2021 01:00-0400 Diastolic blood pressure 70 mm[Hg] [facility] 11-14-2021 01:00-0400 Heart rate 73 /min [facility] 11-14-2021 01:00-0400 Mean blood pressure 92 mm[Hg] [facility] 11-14-2021 01:00-0400 Respiratory rate 19 /min [facility] 11-14-2021 01:00-0400 SaO2% (BldA) [Mass fraction] 99 % [facility] 11-14-2021 01:00-0400 Systolic blood pressure 135 mm[Hg] [facility] 11-14-2021 00:00-0400 Body temperature 98.6 [degF] [facility] 11-14-2021 00:00-0400 Diastolic blood pressure 67 mm[Hg] [facility] 11-14-2021 00:00-0400 Heart rate 72 /min [facility] 11-14-2021 00:00-0400 Mean blood pressure 86 mm[Hg] [facility] 11-14-2021 00:00-0400 Systolic blood pressure 123 mm[Hg] [facility] 11-13-2021 23:00-0400 Diastolic blood pressure 78 mm[Hg] [facility] 11-13-2021 23:00-0400 Heart rate 70 /min [facility] 11-13-2021 23:00-0400 Respiratory rate 18 /min [facility] 11-13-2021 23:00-0400 SaO2% (BldA) [Mass fraction] 98 % [facility] 11-13-2021 23:00-0400 Systolic blood pressure 120 mm[Hg] [facility] Encounters Encounter Date Encounter Type Care Provider Facility Start: 03-19-2024 End: 03-19-2024 Office outpatient visit 25 minutes Adrian Purcell IMAGE PROCESSING ENGINEER Work Phone: [facility] Comment on above: Lumbar radiculopathy (Primary Dx); RLS (restless legs syndrome); Neck pain; 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) Start: 03-19-2024 End: 03-19-2024 ambulatory ADRIAN PURCELL Not Available Start: 03-19-2024 End: 03-19-2024 Bamboo yehuda Purcell IMAGE PROCESSING ENGINEER Work Phone: [facility] Start: 03-19-2024 End: 03-19-2024 Bamboo flowsheet Adrian Pucrell IMAGE PROCESSING ENGINEER Work Phone: [facility] Start: 02-21-2024 End: 02-21-2024 Refill Lyle Brandt CLIENT SERVICE ASSOCIATE-PHARMACY ASSOCIATE Work Phone: [facility] Comment on above: Med Refill Start: 02-20-2024 End: 02-20-2024 Telephone encounter Adrian Purcell IMAGE PROCESSING ENGINEER Work Phone: [facility] Comment on above: CT SCAN FYI Start: 02-16-2024 End: 02-16-2024 Orders Only Alexa Robersonkori CLIENT SERVICE ASSOCIATE-PHARMACY ASSOCIATE Work Phone: [facility] Comment on above: Chronic combined sys tolic and diastolic congestive heart failure (CMS-HCC); Persistent atrial fibrillation (CMS-HCC); Nonischemic congestive cardiomyopathy (CMS-HCC); Benign essential hypertension; Left bundle branch block (LBBB); Automatic implantable cardioverter-defibrillator in situ [employer] 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 (Primary Dx) Start: 01-30-2024 End: 01-30-2024 Orders Only Alexa Robersonkori CLIENT SERVICE ASSOCIATE-PHARMACY ASSOCIATE Work Phone: [facility] Comment on above: Chronic systolic con gestive heart failure (CMS-HCC) (Primary Dx); Paroxysmal atrial fibrillation (CMS-HCC) Start: 01-25-2024 End: 01-25-2024 Refill Kar ORELLANA [facility] Comment on above: Neuropathy Start: 01-24-2024 End: 01-24-2024 Bamboo flowsheet Adrian Purcell IMAGE PROCESSING ENGINEER Work Phone: [facility] Start: 01-24-2024 End: 01-24-2024 Bamboo flowsheet Adrian Purcell IMAGE PROCESSING ENGINEER Work Phone: [facility] Start: 01-24-2024 End: 01-24-2024 Office outpatient visit 25 minutes Adrian Purcell IMAGE PROCESSING ENGINEER Work Phone: [facility] Comment on above: Lumbar radiculopathy (Primary Dx); Neck pain; 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); RLS (restless legs syndrome); Neuropathy Start: 01-24-2024 End: 01-24-2024 ambulatory ADRIAN BINH Not Available Start: 01-03-2024 End: 01-03-2024 Clinisync Result Encounter Adrian Purcell IMAGE PROCESSING ENGINEER Work Phone: [facility] Unsolicited Start: 01-03-2024 End: 01-03-2024 Clinisync Result Encounter Adrian Purcell IMAGE PROCESSING ENGINEER Work Phone: [facility] Unsolicited Start: 01-02-2024 End: 01-02-2024 ambulatory [facility] Start: 12-26-2023 End: 12-26-2023 Bamboo flowsheet Adrian Purcell IMAGE PROCESSING ENGINEER Work Phone: [facility] Start: 12-26-2023 End: 12-26-2023 Bamboo flowsheet Adrian Purcell IMAGE PROCESSING ENGINEER Work Phone: [facility] Start: 12-26-2023 End: 12-26-2023 Office outpatient visit 25 minutes Adrian Purcell IMAGE PROCESSING ENGINEER Work Phone: [facility] Comment on above: Lumbar radiculopathy (Primary Dx); Neck pain; 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 Start: 11-21-2023 End: 11-21-2023 ambulatory [facility] Start: 11-01-2023 End: 11-01-2023 ambulatory ADRIAN PURCELL Not Available Start: 10-18-2023 End: 10-18-2023 ambulatory [facility] Start: 10-12-2023 End: 10-12-2023 ambulatory YOSEPH Nelson [facility] Start: 08-22-2023 End: 08-22-2023 ambulatory ADRIAN PURCELL Not Available Start: 07-11-2023 End: 07-11-2023 Office outpatient visit 25 minutes Rambo Duke DO Work Phone: [facility] Comment on above: Cardiomyopathy (Prim jian Dx); Persistent atrial fibrillation (CMS-HCC); Chronic systolic heart failure (CMS-HCC); Left bundle branch block (LBBB) Start: 07-11-2023 End: 07-11-[address] 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, mild stage Start: 06-21-2023 End: 06-21-2023 ambulatory Jose Francisco Tong II Facility:[facility] Start: 06-21-2023 End: 06-21-2023 ambulatory MD Tika Joy Work Phone: [facility] Work Phone: Start: 06-21-2023 End: 06-21-2023 Patient encounter procedure MD Tika Joy Work Phone: [facility] Work Phone: Start: 05-06-2023 Refill Myron Anderson sser CLIENT SERVICE ASSOCIATE-PHARMACY ASSOCIATE Work Phone: [facility] Comment on above: Med Refill Start: 02-14-2023 End: 02-14-2023 ambulatory ZAC Mark SAMMIE [facility] Start: 12-13-2022 End: 12-13-2022 Emergency department patient visit TIKA JOY [facility] Start: 10-04-2022 End: 10-05-2022 ambulatory Aron HANCOCK Facility:[facility] Start: 10-04-2022 End: 10-04-2022 Patient encounter procedure Aron HANCOCK [facility] Start: 10-03-2022 ambulatory PHARMACY ASSOCIATE Echo Moreno ity:[facility] Start: 09-30-2022 End: 09-30-2022 ambulatory Tika Joy Facility:[facility] Start: 09-30-2022 End: 09-30-2022 ambulatory MD Tika Joy Work Phone: [facility] Work Phone: Start: 09-30-2022 End: 09-30-2022 Patient encounter procedure MD Tika Joy Work Phone: [facility] [place] Work Phone: Start: 04-19-2022 End: 04-20-2022 ambulatory [facility]ANCOCK [facility] Start: 04-19-2022 End: 04-19-2022 Patient encounter procedure Aron HANCOCK [facility] Start: 04-11-2022 End: 04-12-2022 ambulatory Wilfred London [facility] Start: 04-11-2022 End: 04-11-2022 Patient encounter procedure Wilfred London [facility] Start: 03-23-2022 End: 03-28-2022 Evaluation and management of inpatient Saran Dodge [facility] Start: 03-23-2022 End: 03-28-2022 Evaluation and management of inpatient Kris CHIANG [facility] Start: 01-07-2022 End: 01-08-2022 ambulatory [facility] Start: 01-07-2022 End: 01-07-2022 Subsequent hospital visit by physician Tika Joy MD Work Phone: [facility] Start: 12-20-2021 End: 12-21-2021 ambulatory [facility] Start: 12-20-2021 End: 12-20-2021 Subsequent hospital visit by physician Tika Joy MD Work Phone: [facility] Start: 11-14-2021 End: 11-14-2021 Emergency department patient visit Martínez Christianson Dodie [facility] Start: 11-13-2021 End: 11-14-2021 Emergency department patient visit [facility] Meghan Duboisimkaela [facility] Start: 11-10-2021 End: 02-09-2022 ambulatory GIO MANDEL [facility] Start: 11-10-2021 End: 02-08-2022 Recurring Echo MANDEL [facility] Start: 08-11-2021 End: 08-12-[address] PIEDAD LAUREANO Facility: Start: 01-08-2020 End: 01-08-2020 Subsequent hospital visit by physician Makayla Serrano Work Phone: Radiology Comment on above: Pain [R52] Start: 01-07-2020 End: 01-07-2020 Orders Only Martin Gibson Work Phone: Orthopaedics Comment on above: Pain (Primary Dx) Start: 03-27-2017 End: 03-27-2017 Ambulatory ZAC COCHRAN [facility] Procedures Date Procedure Procedure Detail Performing Clinician Start: 01-03-2024 ALL BUN Adrian ratliff IMAGE PROCESSING ENGINEER Work Phone: Start: 01-03-2024 TBH CREATININE Adrian yusuf IMAGE PROCESSING ENGINEER Work Phone: Start: 07-11-2023 Follow-up visit Follow-up RAMBO DUKE [...] ZAC COCHRAN Start: 03-27-2017 SURGICAL PATHOLOGY [place] Delfino SAMMIE Start: 03-27-2017 Colonoscopy Tika stockton MD Work Phone: Simple mastectomy Martínez stewart Plan of Treatment Date Care Activity Detail Author Start: 03-27-2027 Screening for malign ant neoplasm of colon [facility] Start: 01-31-2025 Adult BMI Screening Adult BMI Screen ing [facility] Start: 01-31-2025 Tobacco Screening Tobacco Screening [facility] Start: 01-01-2025 Adult BMI Screening Adult BMI Screen ing [facility] Start: 01-01-2025 Tobacco Screening Tobacco Screening [facility] Start: 07-10-2024 Adult BMI Screening Adult BMI Screen ing [facility] Start: 07-10-2024 Tobacco Screening Tobacco Screening [facility] Start: 06-26-2024 Tobacco Screening Tobacco Screening [facility] Start: 06-24-2024 End: 06-24-2024 Patient encounter procedure 06/24/2024 11:10 AM EST Office Visit [facility] [address] [place] [phone] Daniel Ferrer, ALON [address] [place] [address] [facility] Start: 06-24-2024 End: 06-24-2024 ambulatory 06/24/2024 10:40 AM EST Ophthalmology Imaging [facility] [address] [place] [phone] [facility] Start: 06-10-2024 End: 06-10-2024 Patient encounter procedure 06/10/2024 9:40 AM EST Office Visit [facility] [address] [place] [address] Adrian Purcell NP [address] [address] [facility] Start: 03-19-2024 End: 03-19-2024 Patient encounter procedure [facility] Comment on above: RLS (restless legs s yndrome); Neck pain; Lumbar radiculopathy; 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) Start: 02-23-2024 End: 02-15-2025 Potassium [Moles/volume] in Serum or Plasma Potassium Lab Routine 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) Expected: 02/23/2024 (Approximate), Expires: 02/15/2025 [employer] Work Phone: Comment on above: Expected: 02/23/2024 (Approximate), Expires: 02/15/2025 Start: 02-06-2024 End: 01-29-2025 Basic metabolic 2000 panel - Serum or Plasma Basic Metabolic Panel Lab Routine Paroxysmal atrial fibrillation ([facility]-H[facility]) Chronic systolic congestive heart failure ([facility]-HCC) Expected: 02/06/2024 (Approximate), Expires: 01/29/2025 [employer] Work Phone: Comment on above: Expected: 02/06/2024 (Approximate), Expires: 01/29/2025 Start: 02-01-2024 End: 01-31-2025 Device Interrogation Device Interrogation Cardiac Services Routine Persistent atrial fibrillation (CMS-HCC) 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) Left bundle branch block (LBBB) Expected: 02/01/2024, Expires: 01/31/2025 [employer] Work Phone: Comment on above: Expected: 02/01/2024 , Expires: 01/31/2025 Start: 02-01-2024 End: 02-01-2024 Clinical Support [facility] Start: 01-24-2024 End: 01-24-2024 Patient encounter procedure [facility] Comment on above: Arrived Start: 01-20-2024 Adult BMI Screening Adult BMI Screen ing [facility] Start: 01-20-2024 Tobacco Screening Tobacco Screening [facility] [employer] [facility] Start: 12-31-2023 Covid-19 Vaccine ( season) Covid-19 Vaccine ( season) [facility] Start: 12-31-2023 COVID-19 Vaccine ( season) COVID-19 Vaccine ( season) [facility] [employer] [facility] Start: 12-31-2023 Influenza vaccination [facility] Start: 12-26-2023 End: 12-25-2024 Creatinine [Mass/volume] in Serum or Plasma Creatinine, Serum Lab Routine Medication monitoring encounter Expected: 12/26/2023 (Approximate), Expires: 12/25/2024 [facility] Comment on above: Expected: 12/26/2023 (Approximate), Expires: 12/25/2024 Start: 12-26-2023 End: 12-26-2023 Patient encounter procedure 12/26/2023 9:20 AM EDT Office Visit [facility] [address] [place] [address] Adrian Purcell, SHARRI [address] [place] [address] Arrived [facility] Comment on above: Arrived Start: 12-20-2023 End: 12-20-2023 Patient encounter procedure 12/20/2023 11:10 AM EDT Office Visit [facility] [address] [place] [address] Daniel Ferrer, OD [address] [place] [address] [facility] Start: 12-20-2023 End: 12-20-2023 ambulatory 12/20/2023 10:40 AM EDT Ophthalmology Imaging [facility] [address] [place] [phone] [facility] Start: 12-03-2023 Diabetes Screening Diabetes Screenin [facility] Start: 07-11-2023 End: 07-11-2023 Patient encounter procedure 07/11/2023 1:45 PM EDT Office Visit [facility] [address] [facility] [address] [place] [phone] Rambo Duke, [address] [facility] [place] [address] [facility] Start: 05-15-2023 End: 05-15-2023 Patient encounter procedure 05/15/2023 11:10 AM EST Office Visit [facility] [address] [place] [phone] Daniel Ferrer, OD [address] [place] [address] [facility] Start: 05-15-2023 End: 01-15-2024 ambulatory 05/15/2023 10:40 AM EST Ophthalmology Imaging [facility] [address] [place] [address] [facility] Start: 05-01-2023 Advance Directive Discussion Advance Directive Discussion [facility] Start: 12-30-2022 COVID-19 Vaccine ( season) COVID-19 Vaccine () [facility] Start: 12-24-2022 Lipid panel Lipids [facility] Start: 2022 RSV Vaccine (1 - 1-d ose 75+ series) RSV Vaccine (1 - 1-dose 75+ series) [facility] Start: 12-30-2021 Influenza vaccination Flu vaccine (# 1) [facility] Start: 12-31-2019 Influenza vaccination INFLUENZA (#1) [facility] Start: 2012 ADVANCE DIRECTIVE DISCUSSION ADVANCE DIRECTIVE DISCUSSION [facility] Start: 2012 BONE DENSITY BONE DENSITY [facility] Start: 2012 Fall Risk Screening Fall Risk Screen [facility] Start: 2012 PNEUMOVAX AGE 65 AND OVER WITH 5YR LOOKBACK (#1) PNEUMOVAX AGE 65 AND OVER WITH 5YR LOOKBACK (#1) [facility] Start: 2012 Screening for osteoporosis Bone Density Screening [facility] Start: 04-14-2012 DTaP,Tdap and Td Vac cines (1 - Tdap) DTaP,Tdap and Td Vaccines (1 - Tdap) [facility] Start: 04-14-2012 DTaP/Tdap/Td vaccine (1 - Tdap) DTaP/Tdap/Td vaccine (1 - Tdap) [facility] Start: 04-14-2012 Urine microalbumin profile DTaP,Tdap,Td Vaccine (1 - Tdap) [facility] Start: 2002 Screening for osteoporosis DEXA (modify frequency per FRAX score) [facility] Start: 1997 Screening for malign ant neoplasm of breast Breast cancer screen [facility] Start: 1997 SHINGRIX VACCINE (1 of 2) ALEMAN GRIX VACCINE (1 of 2) [facility] Start: 1997 Tuberculosis screening COLOREC CRISTIEN CANCER SCREENING,SEE MODIFIER [facility] Start: 1992 DIABETES SCREEN [facility]ETES [facility]CREEN [facility] Start: 1992 LIPID SCREEN LIPID SCREEN [facility] Start: 1992 Screening for malign ant neoplasm of colon [facility] Start: 1987 Mammography MAMMOGRAM [facility] Start: 1966 DTaP/Tdap/Td vaccine (1 - Tdap) DTaP/Tdap/Td vaccine (1 - Tdap) [facility] Start: 1966 Urine microalbumin profile DTAP,TDAP,TD (1 - Tdap) [facility] Start: 1965 Adult BMI Follow Up Plan Adult BMI F ollow Up Plan [facility] Start: 1965 Anxiety Screening Anxiety Screening [facility] Start: 1965 Depression Screening Depression Scre ening [facility] Start: 1965 HEPATITIS C SCREENING HEPATITIS C SC REENING [facility] Start: 1965 Hepatitis C screening [facility] Start: 1959 Depression Screen Depression Screen [facility] Start: 1959 Depression Screening Depression Scre ening [facility] Start: 1947 COVID-19 Vaccine (#1) COVID-19 Vacci ne (#1) [facility] Start: 1947 Medicare Annual Well ness Visit Medicare Annual Wellness Visit [facility] CT Cervical spine WO and W contrast IV CT cervical spine w and wo IV contrast Imaging Routine Neck pain 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) Ordered: 12/26/2023 [facility] [employer] Work Phone: Comment on above: Ordered: 12/26/2023 CT Lumbar spine WO a nd W contrast IV CT lumbar spine w and wo IV contrast Imaging Routine Lumbar radiculopathy 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) Ordered: 12/26/2023 [employer] Comment on above: Ordered: 12/26/2023 CT Thoracic spine WO and W contrast IV CT thoracic spine w and wo IV contrast Imaging Routine 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) History of compression fracture of spine Ordered: 12/26/2023 [facility] [employer] Comment on above: Ordered: 12/26/2023 Electrophoresis Prot ein, Serum Electrophoresis Protein, Serum Lab Routine 01/07/2022 11:01 AM EDT CINTHIA SAMANO [employer] Work Phone: End: 02-05-2021 Radiologic exam knee complete 4/more views XR KNEE GENERAL 4V AP BOTH/PA BOTH/LAT/MERC BILAT Radiology Routine Pain 1 Occurrences starting 01/07/2020 until 02/05/2021 [facility] Comment on above: 1 Occurrences starti ng 01/07/2020 until 02/05/2021 [facility] Immunizations Immunization Date Immunization Notes Care Provider [facility] 02-28-2023 influenza virus vacc ine, unspecified formulation Adrian Purcell IMAGE PROCESSING ENGINEER Work Phone: [facility] 02-10-2022 influenza virus vacc ine, unspecified formulation [employer] [facility] 07-29-2021 pneumococcal conjuga te vaccine, 13 valent Adrian Purcell IMAGE PROCESSING ENGINEER Work Phone: [facility] 02-28-2021 SARS-CoV-2 (COVID-19 ) mRNA-1273 vaccine Prevently [facility] 01-22-2021 influenza virus vacc ine, unspecified formulation Prevently [facility] 07-23-2020 SARS-CoV-2 (COVID-19 ) mRNA-1273 vaccine Prevently [facility] 06-27-2020 SARS-CoV-2 (COVID-19 ) mRNA-1273 vaccine Prevently [facility] Comment on above: Result Comment: 2021: [id number] 02-27-2019 influenza virus vacc ine, unspecified formulation [employer] [facility] 08-17-2018 pneumococcal polysaccharide vaccine, 23 valent Prevently [facility] 02-13-2018 influenza virus vacc ine, unspecified formulation Prevently [facility] 11-30-2017 zoster vaccine recombinant Prevently [facility] 08-15-2017 zoster vaccine recombinant Prevently [facility] 02-07-2017 influenza virus vacc ine, unspecified formulation Prevently [facility] 08-09-2016 pneumococcal conjuga te vaccine, 13 valent Prevently [facility] 02-08-2016 influenza virus vacc ine, unspecified formulation Prevently [facility] 01-13-2015 influenza virus vacc ine, unspecified formulation Prevently [facility] 08-15-2014 pneumococcal conjuga te vaccine, 13 valent Prevently [facility] 01-28-2014 influenza virus vacc ine, unspecified formulation Prevently [facility] 01-22-2013 influenza virus vacc ine, unspecified formulation Prevently [facility] 04-13-2012 Td(adult) unspecifie d formulation Prevently [facility] 02-15-2000 influenza virus vacc ine, unspecified formulation Prevently [facility] 04-12-1999 influenza virus vacc ine, unspecified formulation Aron HANCOCK [facility] Payers Date Payer Category Payer Unknown [id number] 2022 Self-pay 2021 Private Health Insurance [employer] [id number] 2019 Unknown MMO MMO MEDICARE SUPPLEMENT [id number] 2019-Present Indemnity [id number] 2016 Medicare [id number] 2015 Commercial Indemnity [employer] [id number] 2015 Unknown [id number] [id number]. [id number] 2012 Medicare MEDICARE MEDICAR E A AND B [id number] 2012-Present [place] [id number] 2012 Medicare [id number] [id number]. [id number] 1959 Medicare [id number] 1959 Unknown [id number] 1947 Unknown [id number] 2.16.840.1.023193.3.579.2. 593 1947 Unknown [id number] 2.16.840.1.133588.3.579.2. 727 1947 Unknown [id number] 2.16.840.1.818906.3.579.2. 727 1947 Unknown [id number] 2.16.840.1.689569.3.579.2. 727 1947 Unknown [id number] 2.16.840.1.066208.3.579.2. 727 1947 Unknown [id number] 2.16.840.1.517897.3.579.2. 727 1947 Unknown [id number] 2.16.840.1.213778.3.579.2. 727 1947 Unknown [id number] 2.16.840.1.438424.3.579.2. 727 1947 Unknown [id number] 2.16.840.1.815673.3.579.2. 727 1947 Unknown [id number] 2.16.840.1.721889.3.579.2. 174 1947 Unknown [id number] 2.16.840.1.693054.3.579.2. 174 1947 Unknown [id number] 2.16.840.1.290248.3.579.2. 174 1947 Unknown [id number] 2.16.840.1.957312.3.579.2. 174 1947 Unknown [id number] 2.16.840.1.409014.3.579.2. 177 1947 Unknown [id number] 2.16.840.1.169259.3.579.2. 1286 1947 Unknown [id number] 2.16.840.1.007353.3.579.2. 1259 1947 Unknown [id number] 2.16.840.1.238645.3.579.2. 1259 1947 Unknown [id number] 2.16.840.1.316695.3.579.2. 1259 1947 Unknown [id number] 2.16.840.1.348562.3.579.2. 1286 1947 Unknown [id number] 2.16.840.1.343464.3.579.2. 128 1947 Unknown [id number] 2.16.840.1.060438.3.579.2. 1286 1947 Unknown [id number] 2.16.840.1.651630.3.579.2. 1286 1947 Unknown [id number] 2.16.840.1.195152.3.579.2. 1286 1947 Unknown [id number] 2.16.840.1.591327.3.579.2. 1286 1947 Unknown [id number] 2.16.840.1.389687.3.579.2. 1286 1947 Unknown [id number] 2.16.840.1.218251.3.579.2. 1286 1947 Unknown [id number] 2.16.840.1.708711.3.579.2. 1286 1947 Unknown [id number] 2.16.840.1.353601.3.579.2. 1286 1947 Unknown [id number] 2.16.840.1.750043.3.579.2. 1286 1947 Unknown [id number] 2.16.840.1.565402.3.579.2. 1286 1947 Unknown [id number] 2.16.840.1.496354.3.579.2. 1286 1947 Unknown [id number] 2.16.840.1.155647.3.579.2. 1259 1947 Unknown [id number] 2.16.840.1.297294.3.579.2. 1259 Unknown [id number] 2.16.840.1.622716.3.579.2. 531 Unknown [id number] 2.16.840.1.016923.3.579.2. 531 Social History Date Type Detail [facility] Start: 1945 Sex Assigned At Not on file C [facility] Start: 12-08-2019 End: 01-07-2020 Exposure to SARS-CoV-2 (event) Not sure [facility] Tobacco [facility] Comment on above: denies Start: 01-19-2023 End: 08-21-2023 Sex Assigned At Female [facility] Tobacco smoking stat [facility] Tobacco smoking consumption unknown [facility] [employer] Phone: Tobacco smoking status No Smokin g Status Entered [facility] Start: 1945 Sex Assigned At Female [facility] Start: 09-26-2022 End: 10-04-2022 Tobacco smoking status Never smoked tobacco (finding) [facility] Jessica Comment on above: denies Start: 12-30-2021 Tobacco use and exposure Smokeless tobacco non-user [facility] Start: 01-19-2023 End: 12-26-2023 Alcohol intake Current drinker of alcohol (finding) [facility] Start: 01-19-2023 End: 08-21-2023 History of Social function [facility] Housing Instability Unknown [facility] Start: 06-04-2020 Alcohol Comment BEER ONE A WEEK [facility] Start: 12-02-2014 Sex Female (finding) [facility] How often to you hav [...] Facility 10-04-2022 Functional Status N/A [facility] 04-19-2022 Functional Status N/A [facility] 04-11-2022 Functional Status N/A [facility] 03-23-2022 Functional Status N/A [facility] 03-23-2022 Functional Status [facility] 11-13-2021 Functional Status N/A [facility] Clinical Notes 07-03-2020 to 03-19-2024 Adrian Purcell NP - 03/19/2024 4:20 PM ESTTelephone Encounter - Cheryl Mcleod RN - 02/21/2024 3:43 AM EDTTelephone Encounter - Cheryl Mcleod RN - 02/21/2024 3:43 AM EDT Note Date & Type Note Facility 03-19-2024 History of Present illness Narrative Images from the original note were not included. Chief Complaint Patient presents with Back Pain Neck Pain Restless Legs Subjective Yenny Felix, 78 y.o., female Patient is here for follow up to RLS and neck/ back pain. Patient declined to complete CT's of thoracic and cervical spine. She admits that she has been seen by oncology, Dr. Wall since last seen here. She states that she had a nuclear bone scan with them and is awaiting the results. States she was told it may be 3-4 weeks before she hears back. She admits sciatica pain has not been too bothersome lately. States symptoms are worse on the left but can be bilateral. She continues on Gabapentin 100-200-300 mg daily and states that she feels this is beneficial. She denies any saddle anesthesias or loss of bowel or bladder control. Denies any falls. She denies RLS being bothersome recently. Iron level is being monitored by PCP. Increased activity can induce neck pain. She denies any radiating symptoms with this or accompanying weakness. The tingling in her fingertips has not been significant. She denies dropping things. Denies any other concerns. Review of Systems Constitutional: Negative for appetite change, fatigue and fever. Respiratory: Negative for cough, shortness of breath and wheezing. Cardiovascular: Negative for chest pain, palpitations and leg swelling. Gastrointestinal: Negative for abdominal pain, constipation, diarrhea and nausea. Musculoskeletal: Positive for arthralgias, back pain, myalgias and neck pain. Negative for gait problem. Neurological: Negative for dizziness, tremors, numbness and headaches. Positive for tingling in the distal extremities. Past Medical History: Diagnosis Date A-fib (CMS/HCC) Blood clotting tendency (CMS/HCC) Breast cancer (CMS/HCC) Cancer (CMS/HCC) GERD (gastroesophageal reflux disease) Gout Heart disease HTN (hypertension) (CMS/HCC) Hypothyroidism (CMS/HCC) Neck pain Osteoarthritis Thyroid disease (CMS/HCC) Past Surgical History: Procedure Laterality Date APPENDECTOMY CARDIAC DEVICE CHECK - IMPLANT/POST-PROCEDURE pacemaker CHOLECYSTECTOMY INSERT / REPLACE / REMOVE PACEMAKER KNEE SURGERY MASTECTOMY OTHER SURGICAL HISTORY Dermatopathic Lymphadentitis under left arm MD ARTHROTOMY,OPEN REPAIR MENISCUS meniscus repair TONSILLECTOMY Family History Problem Relation Name Age of Onset Stroke Mother Hypertension Mother Heart disease Mother Diabetes Mother Hypertension Father Heart disease Father Stroke Father Cancer Sibling Social History Tobacco Use Smoking status: Never Smokeless tobacco: Not on file Substance Use Topics Alcohol use: Yes Allergies: Cefaclor Vitals: 03/19/24 1611 BP: 137/76 Pulse: 67 Body mass index is 33.6 kg/m . weight: 221 lb Neurologic exam: Mental status: Well nourished, well developed and in no acute distress. Grossly oriented to person, place and time. Recent and remote memory are intact. Language is fluent without aphasia. Attention and concentration are normal. Fund of knowledge is appropriate for level of education. Cranial nerves: CN II: Visual acuity is normal. Visual mccracken full to confrontation. CN III, IV, : pupils equal round and reactive to light. Extraocular movements intact. No ptosis present. CN V: Facial sensation is normal. CN VII: Full and symmetric facial movement. CN VIII: Hearing is intact. CN IX and X: Palate elevates symmetrically. CN XI: Shoulder shrug is normal bilaterally. CN XII: Tongue is midline without atrophy or fasciculation. Motor: RUE Strength deltoid, , biceps , triceps , wrist extensors , wrist flexor , freight traffic consultant strength 5/5. LUE Strength deltoid , biceps , triceps , wrist extensors , wrist flexor , freight traffic consultant strength 5/5. RLE Strength illopsoas, quadriceps, tibialis anterior, and gastrocnemius strength 5/5. LLE Strength illopsoas, quadriceps, tibialis anterior, and gastrocnemius strength 5/5. Normal tone x4 extremities. Bulk is normal. Sensory: Sensation is intact to light touch throughout distal extremities. Vibratory sensation diminished in distal extremities. Reflexes: RUE biceps reflex 1+ , brachioradialis reflex 1+. LUE biceps reflex 1+ , brachioradialis reflex 1+. RLE knee reflex 2+. LLE knee reflex 2+. Mi's Sign negative Coordination: Scbkad-xs-dlcr testing is normal Rapid alternating movements are normal Gait: Normal Review and summary of old records: Labs on 01/03/24: Creatinine 1.15, GFR 46, BUN 28 CT of the lumbar spine with and without contrast on 01/04/24: lumbar level scoliosis without segmental anomaly is unchanged, measuring 23 degrees. Discovertebral degenerative changes from L2 to S1 without central spinal stenosis or significant neural foraminal stenosis. Mild to moderate facet arthopathy from L3 to S1. Several small radiolucencies from L2-L5 were unchanged. Radiologist comment: I am doubtful that these radiolucencies results for metastatic disease Past oncology note dated 09/09/21: Bone scan whole body 09/07/21. Normal LABS on 11/16/22: Ferritin 65 CT thoracic spine with and without contrast from 08/11/21: T7 marked compression fracture with complete loss of height; post traumatic versus pathologic. Retropulsion of the posterior wall causing marked central canal narrowing. There are a lot of degenerative changes from T5-6. There are also chronic and mild compression fractures suspected in T8, T9, T11. CT lumbar spine with and without contrast from 08/11/21: Several areas with an L2-L5 vertebral body suspicious for metastatic disease. Consider nuclear medicine whole body bone scan for evaluation of all skeletal structures. Multiple market degenerative disc disease and degenerative facet arthropathy. (metastatic concerns reviewed by Dr. Wall in [place]) CT cervical spine without contrast from January 13, 2021 showed multilevel degenerative changes most notable at C5-6, remote traumatic injury of the C2 vertebral body with stable configuration of the C2 vertebral body compared to 2011, heterogeneous marrow but no aggressive osseous lesions identified. Assessment/Plan Diagnoses and all orders for this visit: Lumbar radiculopathy The patient does have lumbar degenerative disc disease evident on previous lumbar CT and has symptoms consistent with consistent with an L5 radiculopathy on the left. She is unable to have MRI due to incompatible AICD. Lumbar CT in 2021 with findings concerning for metastatic disease. She was evaluated for this by oncology following this (Dr. Wall in [place]) and we did recommend she reach out to them for additional evaluation given her reports of worsening symptoms. Initially she did not do this so we did update lumbar imaging. CT on 01/04/24 redemonstrates degenerative findings without evidence of significant stenosis or neuroforaminal narrowing and radiology felt that radiolucencies were not consistent with metastatic disease. Per patient radicular symptoms have improved since last visit and she is again following with oncology. PLAN: - The patient admits to recent nuclear bone scan and recent follow up with oncology, Dr. Wall. Per patient results are pending. - We have discussed possible further increase in gabapentin versus possible epidural injection in the future should symptoms again worsen following oncology evaluation. 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 The patient does admit to various locations of pain throughout the spine. As such we did order repeat imaging of the cervical, thoracic and lumbar spine. However the patient only completed lumbar CT. She is again following with oncology and admits to recent nuclear bone scan. PLAN: - Will request oncology note with Dr. Wall for review at follow up. RLS (restless legs syndrome) Patient reports symptoms consistent with nighttime restless legs. Could be related to lumbar radiculopathy and neuropathy. Though ferritin level on 11/16/22 was below goal of 75. Gabapentin does seem to help at least in part. The patient is inconsistent with taking iron and again admits to stopping this due to improvement in RLS symptoms. PLAN: - Recommend close follow up with PCP for ongoing monitoring of iron levels. - Continue gabapentin Neuropathy History of breast cancer (and chemotherapy) circa 1999. Likely causative for neuropathy and neuropathic pain. Pain seems to be worsening primarily to the tops of her bilateral feet, burning in quality. PLAN: - Continue gabapentin 100 mg in the am, 200 mg in the evening, and 300 mg at bedtime. OARRs reviewed. Currently tolerating without side effects. Neck pain Chronic neck pain at cervicothoracic junction, which radiates slightly outward. She has had evaluation by oncology for the concerning findings on previous imaging in 2021. She does have significant muscle tension affecting the bilateral trapezius muscles as well. However trigger injections were not beneficial for a meaningful duration and muscle relaxers were not tolerated. Given her ongoing complaints, significant history and lack of repeat imaging in 2 years we did order updated imaging but the patient opted not to proceed with this. PLAN: - See plan as per above History of compression fracture of spine History of compression fracture at T7; she was seen by [facility] and they didn't think surgery was indicated. Follow up in 2-3 months or sooner if symptoms worsen, fail to improve, or should a new neurological concern arise. Pt has been fully educated on their diagnosis, treatment options, follow up plan, and return instructions HPI documented in this encounter [facility] 02-21-2024 Miscellaneous Notes 02/01/24 ov 02/15/24 BMP 01/02/24 GARY BAÑUELOS [facility] Tele[facility] encounter Note 02/01/24 ov 02/15/24 BMP 01/02/24 GARY BAÑUELOS [facility] Miscellaneous Notes noted PATIENT CALLS TO INFORM YOU THAT SHE DOES NOT WISH TO PROCEED WITH THE CT SCAN AT THIS TIME. SHE DID SCHEDULED A FOLLOW UP APPT ON 03/19 AT 4:20 documented in this encounter [facility] 02-20-2024 Telephone encounter Note noted [facility] 02-20-2024 Telephone encounter Note PATIENT CALLS TO INFORM YOU THAT SHE DOES NOT WISH TO PROCEED WITH THE CT SCAN AT THIS TIME. SHE DID SCHEDULED A FOLLOW UP APPT ON 03/19 AT 4:20 [facility] 02-01-2024 History of Present illness Narrative Yenny Felix Date of visit: 02/01/2024 Date of : 1945 Age: 78 y.o. Patient Active Problem List Diagnosis Automatic implantable cardioverter-defibrillator in situ [facility]. Cancer ([facility]) Gout Dyslipidemia Dyspnea Edema Dizziness Vertigo Left bundle branch block (LBBB) Benign essential hypertension Nonischemic congestive cardiomyopathy ([facility]HCC) Overweight Atrial fibrillation ([facility]) CHF (congestive heart failure) ([facility]) Hypertension Hyperlipemia Allergies Allergen Reactions Cefaclor Other [...] mg total) by mouth in the morning. ablflkha-zmyl-RL-calcium &mins (THERAGRAN-M) 9 mg iron-400 mcg tablet [...] basis. Past Medical History: Diagnosis Date Cancer ([facility]) BREAST Cardiomyopathy CHF (congestive heart failure) ([facility]) Dizziness Dyslipidemia Dyspnea Edema Glaucoma Gout History of YAG laser capsulotomy of lens of right eye-Dr. Jimenez 07/17/2017 History of YAG laser capsulotomy of lens, left-Dr. Jimenez 07/24/2017 Hypertension LBBB (left bundle branch block) PVD (posterior vitreous detachment) Vertigo No data recorded No data recorded No data recorded Past Surgical History: Procedure Laterality Date APPENDECTOMY BREAST SURGERY CARDIAC DEFIBRILLATOR PLACEMENT 04/19/2013 Simon BiV ICD/ Generator replacement: 02/18/2016 CATARACT EXTRACTION [...] Medications Discontinued During This Encounter Medication Reason JOANN ELLIPTA 200-62.5-25 mcg blister with device [id number] Score: 4 4.8% Stroke risk per year, 6.7% risk of stroke/TIA/systemic embolism IMPRESSIONS/PLAN 1. Persistent atrial fibrillation (CMS-HCC) 2. 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) 3. Left bundle branch block (LBBB) Her device check reveals appropriate sensing and is 100% biventricular paced. She will continue current medical therapy. She is planning a trip to [place] in the near future and has Lasix as needed. Her battery longevity estimate is 11 months, and she will establish with an fulfillment mail clerk at next visit and device check in 6 months. Follow-up is arranged TODAYS ORDERS No orders of the defined types were placed in this encounter. FOLLOW UP Return in about 6 months (around 08/01/2024). PCP: Tika Joy MD Referring Physician: Tika Joy MD [id number] [place] [address] documented in this encounter [facility] 02-01-2024 History of Present illness Narrative I agree with the findings in the scanned document. documented in this encounter [facility] 01-25-2024 Telephone encounter Note OARRs reviewed. Rx. [facility] 01-25-2024 Miscellaneous Notes OARRs reviewed. Rx. Patient was seen yesterday but Rx for Gabapentin 100mg (1 in the morning, 2 in the afternoon, 3 at night) didn't get sent... Patient would like that sent to her pharmacy. documented in this encounter [facility] 01-25-2024 Telephone encounter Note Patient was seen yesterday but Rx for Gabapentin 100mg (1 in the morning, 2 in the afternoon, 3 at night) didn't get sent... Patient would like that sent to her pharmacy. [facility] 01-24-2024 History of Present illness Narrative Images from the original note were not included. Chief Complaint: lumbar radiculopathy, neuropathy, RLS Subjective Yenny Felix, 78 y.o., female Patient is here for follow up to RLS and neck/ back pain. Admits CT of lumbar spine. She did not complete the CT of the cervical and thoracic spine. She admits left sided sciatica pain has been better. She continues on gabapentin 100-200-300 mg daily and states that she feels this is beneficial. She denies any saddle anesthesias or loss of bowel or bladder control. Denies any falls. She denies RLS being particularly bothersome recently. Increased activity can induce neck pain. She denies any radiating symptoms with this or accompanying weakness. The tingling in her fingertips has not been significant. Denies any other concerns. Review of Systems Constitutional: Negative for appetite change, fatigue and fever. Respiratory: Negative for cough, shortness of breath and wheezing. Cardiovascular: Negative for chest pain, palpitations and leg swelling. Gastrointestinal: Negative for abdominal pain, constipation, diarrhea and nausea. Musculoskeletal: Positive for arthralgias, back pain, myalgias and neck pain. Negative for gait problem. Neurological: Negative for dizziness, tremors, numbness and headaches. Positive for tingling in the distal extremities. Past Medical History: Diagnosis Date A-fib (CMS/HCC) Blood clotting tendency (CMS/HCC) Breast cancer (CMS/HCC) Cancer (CMS/HCC) GERD (gastroesophageal reflux disease) Gout Heart disease HTN (hypertension) (CMS/HCC) Hypothyroidism (CMS/HCC) Neck pain Osteoarthritis Thyroid disease (CMS/HCC) Past Surgical History: Procedure Laterality Date APPENDECTOMY CARDIAC DEVICE CHECK - IMPLANT/POST-PROCEDURE pacemaker CHOLECYSTECTOMY INSERT / REPLACE / REMOVE PACEMAKER KNEE SURGERY MASTECTOMY OTHER SURGICAL HISTORY Dermatopathic Lymphadentitis under left arm MD ARTHROTOMY,OPEN REPAIR MENISCUS meniscus repair TONSILLECTOMY Family History Problem Relation Name Age of Onset Stroke Mother Hypertension Mother Heart disease Mother Diabetes Mother Hypertension Father Heart disease Father Stroke Father Cancer Sibling Social History Tobacco Use Smoking status: Never Smokeless tobacco: Not on file Substance Use Topics Alcohol use: Yes Allergies: Cefaclor Vitals: 01/24/24 1336 BP: 127/80 Pulse: 81 Body mass index is 31.47 kg/m . weight: 207 lb Neurologic exam: Mental status: Well nourished, well developed and in no acute distress. Grossly oriented to person, place and time. Recent and remote memory are intact. Language is fluent without aphasia. Attention and concentration are normal. Fund of knowledge is appropriate for level of education. Cranial nerves: CN II: Visual acuity is normal. Visual mccracken full to confrontation. CN III, IV, : pupils equal round and reactive to light. Extraocular movements intact. No ptosis present. CN V: Facial sensation is normal. CN VII: Full and symmetric facial movement. CN VIII: Hearing is intact. CN IX and X: Palate elevates symmetrically. CN XI: Shoulder shrug is normal bilaterally. CN XII: Tongue is midline without atrophy or fasciculation. Motor: RUE Strength deltoid, , biceps , triceps , wrist extensors , wrist flexor , freight traffic consultant strength 5/5. LUE Strength deltoid , biceps , triceps , wrist extensors , wrist flexor , freight traffic consultant strength 5/5. RLE Strength illopsoas, quadriceps, tibialis anterior, and gastrocnemius strength 5/5. LLE Strength illopsoas, quadriceps, tibialis anterior, and gastrocnemius strength 5/5. Normal tone x4 extremities. Sensory: Sensation is intact to light touch throughout distal extremities. Vibratory sensation diminished in distal extremities. Reflexes: RUE biceps reflex 1+ , brachioradialis reflex 1+. LUE biceps reflex 1+ , brachioradialis reflex 1+. RLE knee reflex 2+. LLE knee reflex 2+. Mi's Sign negative Coordination: Ablxvc-do-emky testing is normal Rapid alternating movements are normal Gait: Normal Review and summary of old records: Labs on 01/03/24: Creatinine 1.15, GFR 46, BUN 28 CT of the lumbar spine with and without contrast on 01/04/24: lumbar level scoliosis without segmental anomaly is unchanged, measuring 23 degrees. Discovertebral degenerative changes from L2 to S1 without central spinal stenosis or significant neural foraminal stenosis. Mild to moderate facet arthopathy from L3 to S1. Several small radiolucencies from L2-L5 were unchanged. Radiologist comment: I am doubtful that these radiolucencies results for metastatic disease Past oncology note dated 09/09/21: Bone scan whole body 09/07/21. Normal LABS on 11/16/22: Ferritin 65 CT thoracic spine with and without contrast from 08/11/21: T7 marked compression fracture with complete loss of height; post traumatic versus pathologic. Retropulsion of the posterior wall causing marked central canal narrowing. There are a lot of degenerative changes from T5-6. There are also chronic and mild compression fractures suspected in T8, T9, T11. CT lumbar spine with and without contrast from 08/11/21: Several areas with an L2-L5 vertebral body suspicious for metastatic disease. Consider nuclear medicine whole body bone scan for evaluation of all skeletal structures. Multiple market degenerative disc disease and degenerative facet arthropathy. (metastatic concerns reviewed by Dr. Wall in [place]) CT cervical spine without contrast from January 13, 2021 showed multilevel degenerative changes most notable at C5-6, remote traumatic injury of the C2 vertebral body with stable configuration of the C2 vertebral body compared to 2012, heterogeneous marrow but no aggressive osseous lesions identified. Assessment/Plan Diagnoses and all orders for this visit: Lumbar radiculopathy The patient does have lumbar degenerative disc disease evident on previous lumbar CT and has symptoms consistent with consistent with an L5 radiculopathy on the left. She is unable to have MRI due to incompatible AICD. Lumbar CT in 2021 with findings concerning for metastatic disease. She was evaluated for this by oncology following this (Dr. Wall in [place]). Despite recommendations to again follow up with them she has not scheduled. Given her significant clinical history and reports of worsening pain we did update lumbar imaging. CT on 01/04/24 redemonstrates degenerative findings without evidence of significant stenosis or neuroforaminal narrowing and radiology felt that radiolucencies were not consistent with metastatic disease. Per patient radicular symptoms have improved since last visit. PLAN: - CT of the lumbar spine was reviewed with the patient today - I have again advised her to reach out to oncology and give an update on her symptoms given her very significant past history of cancer. We have sent a message to their office regarding our concerns previously. 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 The patient does admit to various locations of pain throughout the spine. As such we did order imaging however it seems the patient only completed lumbar CT. PLAN: - CT of the cervical and thoracic spine with and without contrast were ordered at her last visit (Cannot have MRI due to incompatible AICD). I have advised her to reach out to cardiology/PCP regarding the contrast and concerns with decreased GFR. If unable to complete these with contrast the patient will contact oncology for further recommendations and hold of on the CT scans all together. RLS (restless legs syndrome) Patient reports symptoms consistent with nighttime restless legs. Could be related to lumbar radiculopathy and neuropathy. Though ferritin level on 11/16/22 was below goal of 75. Gabapentin does seem to help at least in part. The patient is inconsistent with taking iron and again admits to stopping this due to improvement in RLS symptoms. PLAN: - Recommend close follow up with PCP for ongoing monitoring of iron levels. - Continue gabapentin Neuropathy History of breast cancer (and chemotherapy) circa 1999. Likely causative for neuropathy and neuropathic pain. Pain seems to be worsening primarily to the tops of her bilateral feet, burning in quality. PLAN: - Continue gabapentin 100 mg in the am, 200 mg in the evening, and 300 mg at bedtime. OARRs reviewed. Currently tolerating without side effects. Neck pain Chronic neck pain at cervicothoracic junction, which radiates slightly outward. She has had evaluation by oncology for the concerning findings on previous imaging in 2021. She does have significant muscle tension affecting the bilateral trapezius muscles as well. However trigger injections were not beneficial for a meaningful duration and muscle relaxers were not tolerated. Given her ongoing complaints, significant history and lack of repeat imaging in 2 years we did order updated imaging. PLAN: - See plan as per above History of compression fracture of spine History of compression fracture at T7; she was seen by [facility] and they didn't think surgery was indicated. Follow up in [address] or sooner if symptoms worsen, fail to improve, or should a new neurological concern arise. Pt has been fully educated on their diagnosis, treatment options, follow up plan, and return instructions documented in this encounter [facility] 12-26-2023 History of Present illness Narrative Images from the original note were not included. Chief Complaint: lumbar radiculopathy, neuropathy, RLS Subjective Yenny Felix, 78 y.o., female Patient is here for follow up. Last seen for trigger injections 11-01-23 which were helpful only for a few days. She admits left sided sciatica pain has been bothersome. She denies any saddle anesthesias or loss of bowel or bladder control. Denies any falls. A ferritin lab was ordered at her last visit. She denies completing this and states she stopped taking the ferrous sulfate. She denies restless legs being particularly bothersome. She denies any follow up to oncology since her last visit here. She continues on Gabapentin and she reports that this has lost efficacy for relief of neck pain, spinal pain and neuralgia. Certain activity can induce neck pain. Pain is most troublesome on the top of the left foot, this is burning in quality and she admits extreme sensitivity. The tingling in her fingertips has not been significant. Denies any other concerns. Back Pain Pertinent negatives include no abdominal pain, chest pain, fever, headaches or numbness. Neck Pain Pertinent negatives include no chest pain, fever, headaches or numbness. Review of Systems Constitutional: Negative for appetite change, fatigue and fever. Respiratory: Negative for cough, shortness of breath and wheezing. Cardiovascular: Negative for chest pain, palpitations and leg swelling. Gastrointestinal: Negative for abdominal pain, constipation, diarrhea and nausea. Musculoskeletal: Positive for arthralgias, back pain, myalgias and neck pain. Negative for gait problem. Neurological: Negative for dizziness, tremors, numbness and headaches. Past Medical History: Diagnosis Date A-fib (CMS/HCC) Blood clotting tendency (CMS/HCC) Breast cancer (CMS/HCC) Cancer (CMS/HCC) GERD (gastroesophageal reflux disease) Gout Heart disease HTN (hypertension) (CMS/HCC) Hypothyroidism (CMS/HCC) Neck pain Osteoarthritis Thyroid disease (CMS/HCC) Past Surgical History: Procedure Laterality Date APPENDECTOMY CARDIAC DEVICE CHECK - IMPLANT/POST-PROCEDURE pacemaker CHOLECYSTECTOMY INSERT / REPLACE / REMOVE PACEMAKER KNEE SURGERY MASTECTOMY OTHER SURGICAL HISTORY Dermatopathic Lymphadentitis under left arm MD ARTHROTOMY,OPEN REPAIR MENISCUS meniscus repair TONSILLECTOMY Family History Problem Relation Name Age of Onset Stroke Mother Hypertension Mother Heart disease Mother Diabetes Mother Hypertension Father Heart disease Father Stroke Father Cancer Sibling Social History Tobacco Use Smoking status: Never Smokeless tobacco: Not on file Substance Use Topics Alcohol use: Yes Allergies: Cefaclor Vitals: 12/26/23 0915 BP: 140/78 Pulse: 74 Body mass index is 34.21 kg/m . weight: 225 lb Neurologic exam: Mental status: Well nourished, well developed and in no acute distress. Grossly oriented to person, place and time. Recent and remote memory are intact. Language is fluent without aphasia. Attention and concentration are normal. Fund of knowledge is appropriate for level of education. Cranial nerves: CN II: Visual acuity is normal. Visual mccracken full to confrontation. CN III, IV, : pupils equal round and reactive to light. Extraocular movements intact. No ptosis present. CN V: Facial sensation is normal. CN VII: Full and symmetric facial movement. CN VIII: Hearing is intact. CN IX and X: Palate elevates symmetrically. CN XI: Shoulder shrug is normal bilaterally. CN XII: Tongue is midline without atrophy or fasciculation. Motor: RUE Strength deltoid, , biceps , triceps , wrist extensors , wrist flexor , freight traffic consultant strength 5/5. LUE Strength deltoid , biceps , triceps , wrist extensors , wrist flexor , freight traffic consultant strength 5/5. RLE Strength illopsoas, quadriceps, tibialis anterior, and gastrocnemius strength 5/5. LLE Strength illopsoas, quadriceps, tibialis anterior, and gastrocnemius strength 5/5. Normal tone x4 extremities. Positive straight leg raise on the left. Sensory: Sensation is intact to light touch throughout distal extremities. Vibratory sensation diminished in distal extremities. Reflexes: RUE biceps reflex 1+ , brachioradialis reflex 1+. LUE biceps reflex 1+ , brachioradialis reflex 1+. RLE knee reflex 2+. LLE knee reflex 2+. Mi's Sign negative Coordination: Qkprmp-zi-bqme testing and rapid alternating movements are normal Gait: Normal Review and summary of old records: Past oncology note dated 09/09/21: Bone scan whole body 09/07/21. Normal LABS on 11/16/22: Ferritin 65 CT thoracic spine with and without contrast from 08/11/21: T7 marked compression fracture with complete loss of height; post traumatic versus pathologic. Retropulsion of the posterior wall causing marked central canal narrowing. There are a lot of degenerative changes from T5-6. There are also chronic and mild compression fractures suspected in T8, T9, T11. CT lumbar spine with and without contrast from 08/11/21: Several areas with an L2-L5 vertebral body suspicious for metastatic disease. Consider nuclear medicine whole body bone scan for evaluation of all skeletal structures. Multiple market degenerative disc disease and degenerative facet arthropathy. (metastatic concerns reviewed by Dr. Wall in [place]) CT cervical spine without contrast from January 13, 2021 showed multilevel degenerative changes most notable at C5-6, remote traumatic injury of the C2 vertebral body with stable configuration of the C2 vertebral body compared to 2011, heterogeneous marrow but no aggressive osseous lesions identified. Assessment/Plan Diagnoses and all orders for this visit: Lumbar radiculopathy The patient does have lumbar degenerative disc disease evident on previous lumbar CT and again presents with left sided symptoms in a dermatomal distribution consistent with an L5 radiculopathy. She is unable to have MRI due to incompatible AICD. Lumbar CT in 2021 with findings concerning for metastatic disease. She was evaluated for this by oncology following this (Dr. Wall in [place]). Despite recommendations to again follow up with them she has not scheduled. Given her significant clinical history and reports of worsening pain we will update imaging. PLAN: - CT of the lumbar spine. - I have again advised her to reach out to oncology and give an update on her symptoms given her very significant past history of cancer. We have sent a message to their office regarding our concerns previously. 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 The patient does admit to various locations of pain throughout the spine. As such we will update imaging. PLAN: - CT of the cervical, thoracic, and lumbar spine (Cannot have MRI due to incompatible AICD) RLS (restless legs syndrome) Patient reports symptoms consistent with nighttime restless legs. Could be related to lumbar radiculopathy and neuropathy. Though ferritin level on 11/16/22 was below goal of 75. Gabapentin does seem to help at least in part. The patient is inconsistent with taking iron and again admits to stopping this due to improvement in RLS symptoms. PLAN: - Recommend close follow up with PCP for ongoing monitoring of iron levels. - Continue gabapentin as above Neuropathy History of breast cancer (and chemotherapy) circa 1999. Likely causative for neuropathy and neuropathic pain. Pain seems to be worsening primarily to the tops of her bilateral feet, burning in quality. PLAN: - Continue gabapentin 100 mg in the am, 200 mg in the evening, and 300 mg at bedtime. OARRs reviewed. Currently tolerating without side effects. Neck pain Chronic neck pain at cervicothoracic junction, which radiates slightly outward. She has had evaluation by oncology for the concerning findings on previous imaging in 2021. She does have significant muscle tension affecting the bilateral trapezius muscles as well. However trigger injections were not beneficial for a meaningful duration and muscle relaxers were not tolerated. Given her ongoing complaints, significant history and lack of repeat imaging in 2 years we will update. PLAN: - CT of the cervical and thoracic spine. - gabapentin as above History of compression fracture of spine History of compression fracture at T7; she was seen by [facility] and they didn't think surgery was indicated. Follow up in [address]'s or sooner if symptoms worsen, fail to improve, or should a new neurological concern arise. Pt has been fully educated on their diagnosis, treatment options, follow up plan, and return instructions documented in this encounter [facility] 07-11-2023 History of Present illness Narrative Yenny Felix Date of visit: 07/11/2023 Date of : 1945 Age: 78 y.o. Patient Active Problem List Diagnosis Automatic implantable cardioverter-defibrillator in situ [employer]. Cancer (CMS-HCC) Gout Dyslipidemia Dyspnea Edema Dizziness Vertigo Left bundle branch block (LBBB) Benign essential hypertension Nonischemic congestive cardiomyopathy ([facility]) Overweight Atrial fibrillation ([facility]) CHF (congestive heart failure) ([facility]) Allergies Allergen Reactions Cefaclor Other reaction(s): Intolerance-unknown [...] mg total) by mouth in the morning. kwbeyotq-pqtj-BI-calcium &mins (THERAGRAN-M) 9 mg iron-400 mcg tablet [...] medications. Past Medical History: Diagnosis Date Cancer ([facility]) BREAST Cardiomyopathy CHF (congestive heart failure) ([facility]) Dizziness Dyslipidemia Dyspnea Edema Glaucoma Gout History of YAG laser capsulotomy of lens of right eye-Dr. Jimenez 07/17/2017 History of YAG laser capsulotomy of lens, left-Dr. Jimenez 07/24/2017 Hypertension LBBB (left bundle branch block) PVD (posterior vitreous detachment) Vertigo No data recorded No data recorded No data recorded Past Surgical History: Procedure Laterality Date APPENDECTOMY BREAST SURGERY CARDIAC DEFIBRILLATOR PLACEMENT 04/19/2013 Simon BiV ICD/ Generator replacement: 02/18/2016 CATARACT EXTRACTION [...] this encounter. There are no discontinued medications. [id number] Score: 4 4.8% Stroke risk per year, [...] Joy MD Referring Physician: Tika Joy MD [address] [place] [address] documented in this encounter [facility] 07-10-2023 Miscellaneous Notes Called patient to remind them to bring their most current copy of their medication list with them to their appt. Patient verbalizes understanding. documented in this encounter [facility] 07-10-2023 Telephone encounter Note Called patient to remind them to bring their most current copy of their medication list with them to their appt. Patient verbalizes understanding. [facility] Note Right Eye Reliability was good. Progression has been stable. Foveal threshold was normal. Findings include normal observations. Left Eye Reliability was good. Progression has been stable. Foveal threshold was normal. Findings include normal observations. Notes Clean [facility] OU MANUALLY TRANSCRIBED RESULTS 05-06-2023 Miscellaneous Notes 01/19/23 OV 04/13/23 CBC, CMP documented in this encounter [facility] 05-06-2023 Telephone encounter Note 01/19/23 OV 04/13/23 CBC [facility]MP [facility] 10-04-2022 Hospital Discharge instructions Patient Education 10/04/2022 [...] Follow these instructions at home: Medicines Take bjgf-hmw-slcqbao and prescription medicines only as told by [...] or the blood stops without treatment. Take kwua-vml-aiiahcn and prescription medicines only as told by your health care provider. Drink enough fluid to keep your urine pale yellow. This information is not intended to replace advice given to you by your health care provider. Make sure you discuss any questions you have with your health care provider. Document Revised: 12/16/2020 Document Reviewed: 12/16/2020 [employer] Patient Education 2022 [employer] Follow Up Care 04/19/2022 09:43:54 With:STEPH RICE, Aron Davidson, URL Address: [facility] [employer] [place] [id number]- When: Unknown [facility] Jessica 04-19-2022 Hospital Discharge instructions Patient Education 04/19/2022 [...] Follow these instructions at home: Medicines Take waua-whj-oqwizck and prescription medicines only as told by [...] or the blood stops without treatment. Take kzsz-iye-agukiuw and prescription medicines only as told by your health care provider. Drink enough fluid to keep your urine clear or pale yellow. This information is not intended to replace advice given to you by your health care provider. Make sure you discuss any questions you have with your health care provider. Document Released: 04/17/2006 Document Revised: 09/11/2019 Document Reviewed: 05/20/2017 [employer] Patient Education 2020 [email or web address] Follow Up Care 03/28/2022 12:57:02 With:STEPH RICE, Aron Davidson, URL Address: [address] [place], [place] [id number]- When:6 months Comments:renal US [facility] Jessica 03-28-2022 Note [facility] Comment on above: Result Comment: Elec tronically Signed By: Carol ORTIZ\.br\Date and Time Signed: 03/28/22 11:39 EST\.br\Electronically Co-Signed By: Saran Dodge MD\.br\Date and Time Co-Signed: 03/28/22 12:00 EST 03-28-2022 [...] Oral, Daily nystatin 100,000 units/mL Oral Susp, 204243 unit(s)= 5 mL, Oral, q6hrFT Pro-Air HFA [...] 1 tab(s), Oral, BID Flonase 0.05 mg/inh [place], 0.1 mg= 2 spray(s), Nasal, Daily fluvoxamine [...] [place] Within 1 to 2 weeks [address] [place] [address]- Business (1) Additional Instructions: Jose Francisco GALEANO Within 2 to 4 weeks [address] [place] [address]- Business (1) Additional Instructions: NIDAA KHAMOUSIA In 0 days [address] [place] [address]- Business (1) Additional Instructions: Bacteremia, Adult Core Measures- Pneumonia [facility] (Custom) Extracted from: Title:APSO Note Author:SARMAD KAHN-Carol VELASCO ate:03/27/22 1. Bacteremia (R78.81: Bacte remia) Unclear [...] d/c for a total of 2wks. Ordered: Sbsq Hospital Care/Day High 35 Minutes [id number] 2. Hypoxia (R09.02: Hypoxemia) Likely 2/2 b/l [...] -> cont. chronic meds -F/U w/ primary procurement services manager as outpt. 7. Nodule of kidney (N28.89: [...] Orders: fluticasone nasal, 0.1 mg, 2 spray(s), [place], Nasal, Daily, Routine, Start date 03/27/22 9:00:00 [...] made to ensure accuracy, however, inadvertently computerized trials manager mistakes may be present. Extracted from: Title:APSO [...] d/c for a total of 2wks. [facility]Day High 35 Minutes [id number] 2. Hypoxia (R09.02: Hypoxemia) Likely 2/2 b/l [...] -> cont. chronic meds -F/U w/ primary procurement services manager as outpt. 7. Nodule of kidney (N28.89: [...] made to ensure accuracy, however, inadvertently computerized trials manager mistakes may be present. Extracted from: Title:HypoNa [...] -> cont. chronic meds -F/U w/ primary procurement services manager as outpt. 6. Hyponatremia (E87.1: Hypo-osmolality and [...] made to ensure accuracy, however, inadvertently computerized trials manager mistakes may be present. Extracted from: Title:APSO [...] to ensure accuracy , however, inadvertently computerized trials manager mistakes may be present . Extracted from: Title:Progress/SOAP Note Author:Wilfred Wu. Date:03/24/22 Stable for discharge from [facility] perspective. Follow-up with her outpatient procurement services manager. Continue same medications as patient was admitted [...] Extracted from: Title:Consult Note Author:Lita RICE, Key Saleh. Date:03/23/22 Patient with nonischemic car diomyopathy and [...] (R09.02: Hypoxemia) Note Per discussion with emergency grocery department manager nursing had witnessed patient on continuous monitor [...] Patient states she had an echocardiogram at [facility] ordered by her procurement services manager in [place]. She indicates that there was decreased function [...] Therapy PT & PTT Rapid COVID Antigen [place] Troponin UA With Cult Reflex XR Chest Single View Future Appointments Appointment Date:04/19/2022 09:15:00 AM Scheduled Provider:Aron HANCOCK MD Location:[facility] Appointment Type:URO Office Visit [facility]11-28-2022 Hospital Discharge instructions Patient Education 03/28/2022 [...] Follow these instructions at home: Medicines Take idjl-fug-kqrinix and prescription medicines only as told by [...] and water are not available, use hand enrober tender. You should wash your hands: ?After using [...] health care provider. Practice good oral hygiene. [place] your teeth two times a day, and [...] 01/29/2007 Document Revised: 09/06/2019 Document Reviewed: 09/06/2019 [employer] Patient Education 2019 [email or web address]. 03/23/2022 23:29:07 Core Measures- Pneumonia [facility] (Custom) Pneumonia Pneumonia is an infection of [...] mucous to be coughed up. Only take abed-mzt-qzshnjc or prescription medicines for pain, discomfort, or [...] instructed. Document Released: 04/17/2006 Document Re-Released: 10/13/2008 ExitCare Patient Information 2009 [employer]. Follow Up Care 03/23/2022 00:44:11 With:Jose Francisco GALEANO Address: [address] [place] [address] Business (1) When:04/19/2022 09:15:00 With:Wilfred [place] Address: [address] [place] [id number] Business (1) When:1 to 2 weeks With:TIKA JOY Address: [address] [place] [address] [place] [address] Business (1) When: Unknown [facility]11-23-2022 [facility]Result Comment: Electronically Signed By: Kris CHIANG DO\Date and Time Signed: 03/23/22 05:25 [id number] Evaluation + Plan note Extracted from: Title:ED Note Author:Dodie Lee, Martínez Garcia te:11/14/21 1. Upper respiratory infecti on (J06.9: Acute upper respiratory infection, unspecified) 2. Eloped from emergency department (Z53.21: Procedure and treatment not carried out due to patient leaving prior to being seen by health care provider) [facility]03-30-2021 NoteHNO ID: [id number] Author: Evens Oropeza Service: ? Author Type: Nurse Practitioner [...] have EGD. We rain (more content not included)...[facility]03-05-2021 NoteHNO ID: [id number] Author: Martin Gibson Service: ? Author Type: [...] injections. Follow-up as symptoms dictate [facility] Future Appointments Appointment Date:04/19/2022 09:15:00 AM Scheduled Provider:Aron HANCOCK MD Location:[facility] Appointment [facility] Future Appointments Appointment Date:10/04/2022 09:45:00 AM Scheduled Provider:Aron HANCOCK MD [facility] Appointment Type:URO Office Visit [facility] Evaluation noteNo assessment information available [facility] Work Phone: Evaluation note* Diagnosis Onset Date Resolution Status Primary osteoarthritis of knees, bilateral acute [facility] Work Phone: Evaluation note* Diagnosis Primary open angle glaucoma of right eye, mild stage [facility] encounter [facility]* Diagnosis Cardiomyopathy (CMS-HCC)- Primary Persistent atrial fibrillation (CMS-HCC) Atrial fibrillation Chronic systolic heart failure (CMS-HCC) Chronic systolic heart failure Left bundle branch block (LBBB) [facility] Diagnosis Chronic systolic congestive heart failure (CMS-HCC)- Primary Paroxysmal atrial fibrillation (CMS-HCC) Atrial fibrillation documented in this encounter [facility]* Diagnosis Persistent atrial fibrillation (CMS-HCC)- Primary Atrial fibrillation 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) Left bundle branch block (LBBB) documented in this encounter [facility]* Diagnosis Automatic implantable cardioverter-defibrillator in situ [employer].- Primary documented in this encounter [facility]* Diagnosis Pain Generalized pain Pre-op [...] site Other hyperlipidemia [facility] Diagnosis 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) Persistent atrial fibrillation (CMS-HCC) Atrial fibrillation Nonischemic congestive cardiomyopathy (CMS-HCC) Benign essential hypertension Essential hypertension, benign Left bundle branch block (LBBB) Automatic implantable cardioverter-defibrillator in situ [employer]. 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 History of compression fracture of spine Personal history of traumatic fracture RLS (restless legs syndrome) Restless legs syndrome (RLS) Neuropathy Mononeuritis of unspecified site Medication monitoring encounter Encounter for therapeutic drug monitoring [facility] Diagnosis Neuropathy Mononeuritis of unspecified site [facility] Diagnosis Lumbar radiculopathy- Primary Thoracic or lumbosacral neuritis or radiculitis, unspecified Neck pain Cervicalgia 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 RLS (restless legs syndrome) Restless legs syndrome (RLS) Neuropathy Mononeuritis of unspecified site documented in [facility] Narrative No data available for this section [facility] No data available for this section [facility]ructionsNot on filedocumented in this encounter [facility] [...] note No data available for this section [facility] Summary Purpose Family History No Family [...] Documents on File Type Date Recorded Patient Paraprofessional Aide Expl anation Advance Directive(s) 12/03/2020 9:02 AM Assessments Diagnosis Pain- Primary Generalized pain Chief Complaint and Reason for Visit Chief Complaint Renal cyst Chief Complaint NEW LT KNEE PAIN NX M25.562 Reason for Visit Primary osteoarthrit is of knees, bilateral Reason for Referral Specialty Diagnoses / Procedures Referred By Contac t Referred To Contact Diagnoses Lumbar radiculopathy 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) Procedures CT lumbar spine w and wo IV contrast Adrian Purcell, SHARRI [address] [place] [address] [employer] [address] [place] [address] Phone: [phone] Referral ID Status Reason Start Date Expiration Date V isits Requested Visits Authorized [id number] Pending Review 12/26/2023 2024 1 1 Specialty Diagnoses / Procedures Referred By Contac t Referred To Contact Diagnoses 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) History of compression fracture of spine Procedures CT thoracic spine w and wo IV contrast Adrian Purcell NP [address] [address] [facility] [address] [place] [address] Phone: [phone] Referral ID Status Reason Start Date Expiration Date V isits Requested Visits Authorized [id number] Pending Review 12/26/2023 2024 1 1 Specialty Diagnoses / Procedures Referred By Contac t Referred To Contact Diagnoses Neck pain 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) Procedures CT cervical spine w and wo IV contrast Adrian Purcell NP [address] [address] [facility] [address] [place] [address] Phone: [phone] Referral ID Status Reason Start Date Expiration Date V isits Requested Visits Authorized [id number] Pending Review 12/26/2023 2024 1 1 Specialty Diagnoses / Procedures Referred By Contac t Referred To Contact Diagnoses Persistent atrial fibrillation (CMS-HCC) 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) Left bundle branch block (LBBB) Procedures Device Interrogation Rambo Duke DO [address] [facility], [address] [place] [address] Referral ID Status Reason Start Date Expiration Date V isits Requested Visits Authorized [id number] Pending Review 02/01/2024 01/31/2025 1 1 Additional Source Comments INFORMATION SOURCE (unrecogn ized section and content) DATE CREATED AUTHOR 10/24/2017 [facility] DATE CREATED AUTHOR AUTHOR'S ORGANIZ ATION 12/04/2020 [facility] DATE CREATED AUTHOR AUTHOR'S ORGANIZ ATION 04/19/2021 [facility] DATE CREATED AUTHOR AUTHOR'S ORGANIZ ATION 08/14/2021 [facility] DATE CREATED AUTHOR AUTHOR'S ORGANIZ ATION 10/09/2022 [facility] DATE CREATED AUTHOR AUTHOR'S ORGANIZ ATION 12/14/2022 [facility] DATE CREATED AUTHOR AUTHOR'S ORGANIZ ATION 02/18/2023 [facility] DATE CREATED AUTHOR AUTHOR'S ORGANIZ ATION 06/29/2023 [facility] DATE CREATED AUTHOR AUTHOR'S ORGANIZ ATION 10/13/2023 [facility] DATE CREATED AUTHOR AUTHOR'S ORGANIZ ATION 12/27/2023 [facility] EPIC DATE CREATED AUTHOR AUTHOR'S ORGANIZ ATION 02/03/2024 [facility] DATE CREATED AUTHOR AUTHOR'S ORGANIZ ATION 03/22/2024 [facility] EPIC Source Comments (unrecognize d section and content) In the event this informatio n is protected by the Federal Confidentiality of Alcohol and Drug Abuse Patient Records regulations: The Federal rules restrict any use of the information to criminally investigate or prosecute any alcohol or drug abuse patient.[facility] the event this information is protected by the Federal Confidentiality of Alcohol and Drug Abuse Patient Records regulations: The Federal rules restrict any use of the information to criminally investigate or prosecute any alcohol or drug abuse patient.[facility] Care Team (unrecognized sect ion and content) Engineering Specialist Technician Relationship Specialty Start Date End Date Tika Joy MD [address] [place] PCP - General Internal Medicine 03/17/17 Engineering Specialist Technician Relationship Specialty Start Date End Date Tika Joy MD [address] [place] PCP - General Internal Medicine 03/17/17 Team Status: Active Member Role Status Dates Tika Joy MD Primary Care Provider Active Team Status: Inactive Member Role Status Dates Aron Hancock MD Attending Provider Active Tika Joy MD Primary Care Provider Active Engineering Specialist Technician Relationship Specialty Start Date End Date Tika Joy MD [address] [place] [address] PCP - General 01/09/14 Team Status: Inactive Member Role Status Dates Tika Joy MD Primary Care Provider Active Start: June 21, 2023 End: June 21, 2023 Jose Francisco Tong II, MD Attending Provider Active Start: June 21, 2023 End: June 21, 2023 Engineering Specialist Technician Relationship Specialty Start Date End Date Tika Joy MD [address] [place] [address] PCP - General 01/09/14 Engineering Specialist Technician Relationship Specialty Start Date End Date Tika Joy MD [address] [place] [address] PCP - General 01/09/14 Engineering Specialist Technician Relationship Specialty Start Date End Date Tika Joy MD [address] [place] [address] PCP - General 01/09/14 Engineering Specialist Technician Relationship Specialty Start Date End Date Tika Joy MD [address] [place] [address] PCP - General 01/09/14 Engineering Specialist Technician Relationship Specialty Start Date End Date Tika Joy MD [address] [place] [address] PCP - General 01/09/14 Engineering Specialist Technician Relationship Specialty Start Date End Date Tika Joy MD [address] [place] [address] PCP - General 01/09/14 Engineering Specialist Technician Relationship Specialty Start Date End Date Tika Joy MD [address] [place] [address] PCP - General Internal Medicine 12/26/23 Engineering Specialist Technician Relationship Specialty Start Date End Date Tika Joy MD [address] [place] [address] PCP - General 01/09/14 Engineering Specialist Technician Relationship Specialty Start Date End Date Tika Joy MD [address] [place] [address] PCP - General Internal Medicine 12/26/23 Engineering Specialist Technician Relationship Specialty Start Date End Date Tika Joy MD [address] [place] [address] PCP - General Internal Medicine 12/26/23 Engineering Specialist Technician Relationship Specialty Start Date End Date Tika Joy MD [address] [place] [address] PCP - General Internal Medicine 12/26/23 Engineering Specialist Technician Relationship Specialty Start Date End Date Tika Joy MD [address] [place] [address] PCP - General Internal Medicine 12/26/23 Engineering Specialist Technician Relationship Specialty Start Date End Date Tika Joy MD [address] [place] [address] PCP - General Internal Medicine 12/26/23 Engineering Specialist Technician Relationship Specialty Start Date End Date Tika Joy MD [address] [place] [address] PCP - General Internal Medicine 12/26/23 Goals (unrecognized section and content) Goals may be documented in a n alternate section Reason for Visit (unrecogniz ed section and content) Reason Comments Med Refill Reason Onset Date Comments Appointment 07/10/2023 Reason Comments Follow-up Hypertension Atrial Fibrillation Reason Comments Device Check Follow-up 6MO W/DEVICE, SCHED W/PT Reason Comments Device Check Reason Comments Radiology XR Reason Onset Date Comments CT SCAN FYI 02/20/2024 Reason Comments Back Pain Neck Pain Restless Legs Reason Comments Back Pain Neck Pain Reason Onset Date Comments Med Refill 01/25/2024 FOR RECORDS PERTAINING TO PATIENTS WHO ARE [...] BE BASED ON THE PRIMARY CLINICAL RECORDS. [employer] [facility]. provides no warranty or guarantee of the accuracy or completeness of information in this document.
[2024-05-15 15:01] LABS: Thyroid Stimulating Hormone 2.131 uIU/mL (0.358-3.740)
[2024-05-15 15:23] LABS: Free T4 0.89 ng/dL (0.76-1.46)
== END 2024-05-15 14:12 | disposition home or self-care (01) ==
LOC: LAB 14:13
DX: E03.9 Hypothyroidism, unspecified (principal)
CPT/HCPCS: 36415; 84439; 84443

== ENCOUNTER 2024-06-24 09:57 | Outpatient (RCR) | payer MEDICARE, OTHER, SELFPAY | END 2024-06-25 12:33 | disposition home or self-care (01) | LOC: PT 09:57 | PROVIDERS: Visit Provider Podiatrist Foot & Ankle Surgery | DX: M79.672 Pain in left foot (principal); M54.32 Sciatica, left side; M79.671 Pain in right foot; M54.31 Sciatica, right side | CPT/HCPCS: 97110; 97140; 97161 ==

== ENCOUNTER 2024-09-30 10:35 | Outpatient (OUT) | payer MEDICARE, OTHER, SELFPAY ==
--- OUTSIDE RECORDS SUMMARY | 2024-09-30 10:40 | XMS_ITS | Encounter Summary ---
Author Organization [facility] tem Address [facility] [place]-[id number] [address] [place] [address] Care Team Providers Care Messenger Floorperson Name Role Phone Tika Humphries MD Primary Care Provider +1- [phone] Encounter Details Date Type Department Care Team (Late st Contact Info) Description 12/20/2023 Orders Only [facility] Physicians Cardiology [address] [place] [address] Shandra Ruiz MA Chronic systolic congestive heart failure ([facility]-HCC) Social History Tobacco Use Types Packs/Day Years Used Date Smoking Tobacco: Never Smokeless Tobacco: Never Alcohol Use Standard Drinks/Week Comments Yes 0 (1 standard drink = 0.6 oz pur e alcohol) BEER ONE A WEEK Childcare Answer Date Recorded Childcare Unknown 10/10/2018 Employment Answer Date Recorded Employment Unknown 10/10/2018 Hunger Screening Answer Date Recorded Within the past 12 months we worried whether our food would run out before we got money to buy more. Never True 01/19/2023 Within the past 12 months th e food we bought just didn't last and we didn't have money to get more. Never True 01/19/2023 Purpose - Life Answer Date Recorded Purpose and direction in life Unknown Comments Unknown Sex and Gender Information Value Date Recorded Sex Assigned at Not on file Legal Sex Female 11:29 PM EDT Gender Identity Not on file Sexual Orientation Not on file documented as of this encounter Plan of Treatment Upcoming Encounters Date Type Department Care Team (Latest Contact Info) Description 11/25/2024 1:00 PM EDT Hospital Encounter [facility] [place] [address] [facility] [place] [address] Lois Madison MD [address] [place] [address] Nonischemic cardiomyopathy ([facility]-HCC) 11/25/2024 1:00 PM EDT - 11/25/2024 3:00 PM EDT Surgery [facility] [place] [address] [place] [address] Lois Madison MD [address] [place] [address] BIV ICD gen change - BSI 01/06/2025 10:10 AM EDT Ophthalmology Imaging [facility] [address] [place] [address] 01/06/2025 10:20 AM EDT Office Visit [facility] [address] [place] [address] Daniel Ferrer, OD [address] [place] [address] 02/13/2025 10:30 AM EDT Clinical Support [facility] [address] [place] [address] 02/13/2025 11:15 AM EDT Office Visit [facility] [address] [place] [address] Rambo Panchal, [address] [facility] [place] [address] documented as of this encounter Procedures Procedure Name Priority Date/Time Associated Diagnosis Comments T-PRO BNP, S Routine 12/20/2023 Chronic systolic congestive heart failure ([facility]-HCC) MAGNESIUM Routine 12/20/2023 Chronic systolic congestive heart failure (CMS-HCC) BASIC METABOLIC PANEL Routine 12/20/2023 Chronic systolic congestive heart failure (CMS-HCC) documented in this encounter Results * Basic Metabolic Panel (12/20/2023) 12/20/2023 Alexa Serna VIRTUAL CLASSROOM MANAGER-COMPUTED TOMOGRAPHY TECHNICIAN LAB BLOOD ORDERABLES Fin al Result Performing Organization Address [facility] de Phone Number SUNQUEST * Magnesium (12/20/2023) Magnesium 2.0 SUNQUEST 12/20/2023 Alexa Serna VIRTUAL CLASSROOM MANAGER-COMPUTED TOMOGRAPHY TECHNICIAN LAB BLOOD ORDERABLES Fin al Result Performing Organization Address [facility] de Phone Number SUNQUEST * NT-Pro BNP,S (12/20/2023) Blood 12/20/2023 Alexa Serna VIRTUAL CLASSROOM MANAGER-COMPUTED TOMOGRAPHY TECHNICIAN LAB BLOOD ORDERABLES Fin al Result Performing Organization Address [facility] de Phone Number SUNQUEST documented in this encounter Visit Diagnoses Diagnosis Chronic systolic congestive heart failure (CMS-HCC) Nonischemic cardiomyopathy (CMS-HCC)- Primary Other primary cardiomyopathies Nonischemic cardiomyopathy (CMS-HCC) Other primary cardiomyopathies documented in this encounter Care Teams Messenger Floorperson Relationship Specialty Start Date End Date Tika Humphries MD [address] [place] [address] PCP - General 01/09/14 documented as of this encounter
--- OUTSIDE RECORDS SUMMARY | 2024-09-30 10:41 | XMS_ITS | Encounter Summary ---
Author Organization [facility] tem Address [facility] [place]-[id number] [address] [place] [address] Care Team Providers Care Solvent Plant Operator Name Role Phone Tika Humphries MD Primary Care Provider +1- [phone] Encounter Details Date Type Department Care Team (Late st Contact Info) Description 01/25/2023 Orders Only [facility] [address] [place] [address] External, Scanning Provider Social History Tobacco Use Types Packs/Day Years [...] Description 11/25/2024 1:00 PM EDT Hospital Encounter [facility] [address] [place] [address] Lois Madison MD [address] [place], [place] [phone] Nonischemic cardiomyopathy ([facility]-HCC) 11/25/2024 1:00 PM EDT - 11/25/2024 3:00 PM EDT Surgery [facility] [address] [place] [address] Lois Madison MD [address] [place] [address] BIV ICD gen change - BSI 01/06/2025 10:10 AM EDT Ophthalmology Imaging [facility] [address] [place] [phone] 01/06/2025 10:20 AM EDT Office Visit [facility] [address] [place] [address] Daniel Ferrer, OD [address] [place] [address] 02/13/2025 10:30 AM EDT Clinical Support [facility] [address] [place] [address] [address] [place] [phone] 02/13/2025 11:15 AM EDT Office Visit [facility] [address] [facility] [address] [place] [phone] Rambo Panchal DO [address] [facility] [place] [address] documented as of this encounter Procedures Procedure Name Priority Date/Time Associated Diagnosis Comments DEVICE INTERROGATION Routine 01/19/2023 documented in this encounter Results * Device Interrogation (01/19/2023) Anatomical Region Laterality Modality Other us Scanning Provider External [facility] RDER[facility]LES Final Result documented in this encounter Visit Diagnoses Not on filedocumented in this encounter Care Teams Solvent Plant Operator Relationship Specialty Start Date End Date Tika Humphries MD [address] [place] [address] PCP - General 01/09/14 documented as of this encounter
--- OUTSIDE RECORDS SUMMARY | 2024-09-30 10:41 | XMS_ITS | Encounter Summary ---
Author Organization [employer] tem Address [id number] [address] [place] [address] Care Team Providers Care Metallic Yarn Slitting Machine Operator Name Role Phone Tika Humphries MD Primary Care Provider [phone]- [phone] Encounter Details Date Type Department Care Team (Late st Contact Info) Description 01/11/2024 Orders Only [facility] [address] [place] [phone] Kay Ann CMA Nonischemic congestive cardiomyopathy (CMS-HCC); Chronic systolic congestive heart failure (CMS-HCC) Social History Tobacco Use Types Packs/Day Years [...] Description 11/25/2024 1:00 PM EDT Hospital Encounter [facility] [place] [address] [facility] [place] [address] Lois Madison MD [address] [place] [address] Nonischemic cardiomyopathy ([facility]-HCC) 11/25/2024 1:00 PM EDT - 11/25/2024 3:00 PM EDT Surgery [facility] [place] [address] [facility] [place] [address] Lois Madison MD [address] [place] [address] BIV ICD gen change - BSI 01/06/2025 10:10 AM EDT Ophthalmology Imaging [facility] [address] [place] [address] 01/06/2025 10:20 AM EDT Office Visit [facility] [address] [place] [address] Daniel Ferrer, ALON [address] [place] [address] 02/13/2025 10:30 AM EDT Clinical Support [facility] [address] [place] [address] [address] [place] [phone] 02/13/2025 11:15 AM EDT Office Visit [facility] [address] [place] [address] [address] [place] [address] Rambo Panchal DO [address] [facility] [place] [address] documented as of this encounter Procedures Procedure Name Priority Date/Time Associated Diagnosis Comments NT-PRO B-TYPE NATRIURETIC PEPTIDE Routine 01/10/2024 Nonischemic congestive cardiomyopathy ([facility]-HCC) Chronic systolic congestive heart failure (CMS-HCC) BASIC METABOLIC PANEL Routine 01/10/2024 Nonischemic congestive cardiomyopathy (CMS-HCC) Chronic systolic congestive heart failure (CMS-HCC) documented in this encounter Results * Basic Metabolic Panel (01/10/2024) 01/10/2024 us Alexa Serna DIRECTOR FEDERAL-GOLDSMITH APPRENTICE LAB BLOOD ORDERABLES Fin al Result Performing Organization Address [facility] Co de Phone Number SUNQUEST * NT-Pro B-Type Natriuretic Peptide (01/10/2024) Blood 01/10/2024 Alexa Serna DIRECTOR FEDERAL-GOLDSMITH APPRENTICE LAB BLOOD ORDERABLES Fin al Result Performing Organization Address [facility] Co de Phone Number SUNQUEST documented in this encounter Visit Diagnoses Diagnosis Nonischemic congestive cardiomyopathy (CMS-HCC) Chronic systolic congestive heart failure (CMS-HCC) Nonischemic cardiomyopathy (CMS-HCC)- Primary Other primary cardiomyopathies Nonischemic cardiomyopathy (CMS-HCC) Other primary cardiomyopathies documented in this encounter Care Teams Metallic Yarn Slitting Machine Operator Relationship Specialty Start Date End Date Tika Humphries MD [address] [place] [address] PCP - General 01/09/14 documented as of this encounter
--- OUTSIDE RECORDS SUMMARY | 2024-09-30 10:41 | XMS_ITS | Encounter Summary ---
Author Organization [facility] tem Address [id number] [address] [place] [address] Care Team Providers Care Lockstitch Cup Setter Name Role Phone Tika Humphries MD Primary Care Provider [phone]- [phone] Encounter Details Date Type Department Care Team (Late st Contact Info) Description 01/05/2024 Orders Only [facility] [address] [place] [address] External, Scanning Provider Social History Tobacco Use [...] Description 11/25/2024 1:00 PM EDT Hospital Encounter [facility] [address] [place] [address] Lois Madison MD [address] [place] [address] Nonischemic cardiomyopathy (CMS-HCC) 11/25/2024 1:00 PM EDT - 11/25/2024 3:00 PM EDT Surgery [facility] [address] [facility] [place] [address] Lois Madison MD [address] [place] [address] BIV ICD gen change - BSI 01/06/2025 10:10 AM EDT Ophthalmology Imaging [facility] [address] [place] [address] 01/06/2025 10:20 AM EDT Office Visit [facility] [address] [place] [address] Daniel Ferrer, OD [address] [place] [address] 02/13/2025 10:30 AM EDT Clinical Support [facility] [address] [place] [address] [address] [place] [phone] 02/13/2025 11:15 AM EDT Office Visit [facility] [address] [place] [address] [facility] [address] [place] [address] Rambo Panchal DO [address] [facility] [place] [address] documented as of this encounter Procedures Procedure Name Priority Date/Time Associated Diagnosis Comments MULTIPLE LABS Routine 01/02/2024 12:42 PM EDT LIPID PROFILE Routine 01/02/2024 documented in this encounter Results * Multiple labs (01/02/2024 12:42 PM EDT) us Scanning Provider External [facility] Final Result MANUALLY TRANSCRIBED RESULTS * Lipid profile (01/02/2024) External Cholesterol 137 MANUALLY TRANSCRIBED RESULTS External Cholesterol:Hdl 2.5 MANUALLY TRANSCRIBED RESULTS External Hdl Cholesterol 55 MANUALLY TRANSCRIBED RESULTS External Ldl (Calc) 57 MANUALLY TRANSCRIBED RESULTS External Triglycerides 123 MANUALLY TRANSCRIBED RESULTS External Very Low Lipoprotein 25 MANUALLY TRANSCRIBED RESULTS us Scanning Provider External LAB BLOOD ORDERABLES Edited Result - Final Performing Organization Address City/[facility]/ZIP Co de Phone Number MANUALLY TRANSCRIBED RESULTS documented in this encounter Visit Diagnoses Not on filedocumented in this encounter Care Teams Lockstitch Cup Setter Relationship Specialty Start Date End Date Tika Humphries MD [address] [place] [address] PCP - General 01/09/14 documented as of this encounter
--- OUTSIDE RECORDS SUMMARY | 2024-09-30 10:41 | XMS_ITS | Clinical Summary ---
Author Organization [facility] Address [address] [place] [address] Care Team Providers Care Cook Chili Name Role Phone Tika Humphries MD Primary Care Provider Allergies Active Allergy Reactions Criticality Noted Date Comments Cefaclor 08/21/2023 Medications spironolactone (Aldactone) 25 MG tablet Take 25 mg by mouth Daily Active rivaroxaban (Xarelto) 20 MG tablet Take 20 mg by mouth at bedtime Take with food. 1 PO Active simvastatin (Zocor) 40 MG tablet Take 40 mg by mouth at bedtime 1 PO Active Probiotic Product (Probiotic Complex Acidophilus) capsule Take 1 capsule by mouth Daily Active omega-3 (fish oil) 1200 MG capsule Take 1,200 mg by mouth in the morning and 1,200 mg before bedtime. 1 PO. Active Multiple Vitamin (multivitamin) tablet Take 1 tablet by mouth Daily 1 PO Active Magnesium Oxide, Laxative, 500 MG tablet Take 500 mg by mouth Daily 1 PO Active losartan (Cozaar) 25 MG tablet Take 25 mg by mouth Daily 1 PO Active loratadine (Claritin) 10 MG tablet Take 10 mg by mouth Daily 1 PO Active levothyroxine (Synthroid, Levoxyl) 50 MCG tablet Take 50 mcg by mouth in the morning. Take before meals. 1 PO. Active furosemide (Lasix) 20 MG tablet Take 20 mg by mouth if needed 1/2 PO Active esomeprazole (NexIUM) [address] capsule Take 20 mg by mouth in the morning. Take before meals. Do not open capsule.1 PO. Active dorzolamide-vivien olol (Cosopt) 2-0.5 % ophthalmic solution Administer 1 drop into both eyes in the morning and 1 drop before bedtime. 22.3- 6.8 MG/ML Solution 1 DROP OPHT BID . Active cholecalciferol (Vitamin D-3) 50 MCG (1999 UT) capsule Take 50 mcg by mouth Daily 1 po Active carvedilol (Coreg) 6.25 MG tablet Take 6.25 mg by mouth in the morning and 6.25 mg in the evening. Take with meals. 1 PO AM 2 PO PM. Active Calcium Carbonate (CALCIUM 500 PO) Take 500 mg by mouth Daily G Tablet 1 PO Active allopurinol (Zyloprim) 100 MG tablet Take 100 mg by mouth Daily 1 PO Active acetaminophen (Tylenol) 325 MG capsule Take 325 mg by mouth every 6 (six) hours if needed for mild pain 2 PO Active Iron, Ferrous Sulfate, 325 (65 Fe) MG tablet Take 1 tablet by mouth Daily Active sertraline (Zoloft) 25 MG tablet Take 25 mg by mouth Daily 4 Active empagliflozin (Jardiance) 10 MG Take by mouth Active gabapentin (Neurontin) 100 MG capsuleIndicati ons:Neuropathy TAKE ONE CAPSULE BY MOUTH EVERY MORNING, 2 CAPSULEs AT MIDDAY, THEN TAKE 3 CAPSULES BY MOUTH EVERY EVENING 180 capsule 1 4 Active Active Problems Problem Noted Date Diagnosed Date Meralgia paresthetica of both lower extremities 08/21/2023 Overview (08/21/2023): Meralgia paresthetica bilaterally. Not a large complaint today. - PLAN - Gabapentin per above - Weight loss and looser clothing around waist discussed Breast cancer 08/21/2023 DDD (degenerative disc disease), lumbar 08/21/19 24 Non-traumatic compression fr acture of T7 thoracic vertebra, initial encounter ([facility]) 08/21/2023 Overview (08/21/2023): Compression fracture at T7; she was seen by [facility] and they didn't think surgery was indicated. At this point, not having issues with it and I would have expected this to be long healed. Metastasis to spinal column 08/21/2023 RLS (restless legs syndrome) 08/21/2023 Overview (08/21/2023): Patient reports that over the last few months she has been having what seems consistent with nighttime restless legs. Could be related to lumbar radiculopathy and neuropathy but also ordered a ferritin level. Gabapentin does seem to help at least in part. Ferritin level on 11/16/22 was below goal of 75. She is now taking ferrous sulfate and feels this was beneficial. PLAN - Continue ferrous sulfate 325 mg daily; side effects discussed. Currently tolerating without side effects - Consider repeat ferritin lab in 3-4 months (per patient PCP has ordered) - Continue gabapentin as above Neuropathy 08/21/2023 Overview (08/21/2023): History of breast cancer with metastases to spine s/p cervical spine radiation (and chemotherapy) circa 1999. Likely causative for neuropathy and neuropathic pain. Pain seems to be worsening primarily to the tops of her bilateral feet, burning in quality. PLAN: - Continue gabapentin to 100 mg in the am, 200 mg in the evening, and 300 mg at bedtime. OARRs reviewed. Side effects discussed and the patient would like to proceed. Immunizations Immunization Administration Dates Next Due Pneumococcal Conjugate PCV 13 07/29/2021 Family History Medical History Relation Name Comments Heart disease Father Hypertension Father Stroke Father Diabetes Mother Heart disease Mother Hypertension Mother Stroke Mother Cancer Sibling Relation Name Status Comments Father Mother Sibling Social History Tobacco Use Types Packs/Day Years Used Date Smoking Tobacco: Never Tobacco Cessation:Counseling Given: Not Answered Alcohol Use Standard Drinks/Week Comments Yes 0 (1 standard drink = 0.6 oz pur e alcohol) AUDIT-C Answer Date Recorded Q1: How often do you have a drink containing alc ohol? 2-4 times a month 08/21/2023 Q2: How many drinks containi ng alcohol do you have on a typical day when you are drinking? 1 or 2 08/21/2023 Frequency of Binge Drinking Not on file 07/31 Comments Unknown Sex and Gender Information Value Date Recorded Sex Assigned at Not on file Legal Sex Female 8:32 PM EDT Gender Identity Not on file Sexual Orientation Not on file Last Filed Vital Signs Vital Sign Reading Time Taken Comments Blood Pressure 137/76 03/19/2024 4:11 PM EST Pulse 67 03/19/2024 4:11 PM EST Temperature - - Respiratory Rate - - Oxygen Saturation - - Inhaled Oxygen Concentration - - Weight 100 kg (221 lb) 03/19/2024 4:11 PM EST Height 172.7 cm (5' 8 ) 12/26/2023 9:15 AM EDT Body Mass Index 33.6 12/26/2023 9:15 AM EDT Plan of Treatment Health Maintenance Due Date Last Done Comments Pneumococcal Vaccine: 65+ Years Completed 07/29/2021, 08/17/2018, 08/09/2016, Additional history exists Influenza Vaccine Completed 02/16/2024, , 02/10/2022, Additional history exists Insurance [employer] Care Teams Cook Chili Relationship Specialty Start Date End Date Tika Humphries MD [address] [place] [phone] PCP - General Internal Medicine 12/26/23
--- OUTSIDE RECORDS SUMMARY | 2024-09-30 10:41 | XMS_ITS | Encounter Summary ---
Author Organization [facility] tem Address [facility] [place]-[id number] [address] [place] [address] Care Team Providers Care Air Carrier Inspector Name Role Phone Tika Humphries MD Primary Care Provider [phone]- [phone] Encounter Details Date Type Department Care Team (Late st Contact Info) Description 02/26/2024 Orders Only [facility] Cardiology [address] [address] Kay Ann CMA Chronic combined systolic and diastolic congestive heart failure ([facility]) Social History Tobacco Use Types Packs/Day Years [...] Description 11/25/2024 1:00 PM EDT Hospital Encounter [facility] [place] [address] [facility] [place] [address] Lois Madison MD [address] [place] [address] Nonischemic cardiomyopathy ([facility]) 11/25/2024 1:00 PM EDT - 11/25/2024 3:00 PM EDT Surgery [facility] [place] [address] [place] [address] Lois Madison MD [address] [place] [address] BIV ICD gen change - BSI 01/06/2025 10:10 AM EDT Ophthalmology Imaging [facility] [address] [place] [address] 01/06/2025 10:20 AM EDT Office Visit [facility] [address] [place] [address] Daniel Ferrer, OD [address] [place] [address] 02/13/2025 10:30 AM EDT Clinical Support [facility] [address] [place] [address] 02/13/2025 11:15 AM EDT Office Visit [facility] [address] [place] [address] Rambo Panchal, [address] [facility] [place] [address] documented as of this encounter Procedures Procedure Name Priority Date/Time Associated Diagnosis Comments POTASSIUM Routine 02/24/2024 Chronic combined systolic and diastolic congestive heart failure ([facility]) documented in this encounter Results * Potassium (02/24/2024) External Potassium K 4.6 3.5 - 5.1 SUNQUEST 02/24/2024 us Alexa Serna CLOTH EXAMINER MACHINE-ASSISTANT PROFESSOR OF BIOCHEMISTRY LAB BLOOD ORDERABLES Fin al Result SUNQUEST documented in this encounter Visit Diagnoses Diagnosis 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) Nonischemic cardiomyopathy (CMS-HCC)- Primary Other primary cardiomyopathies Nonischemic cardiomyopathy (CMS-HCC) Other primary cardiomyopathies documented in this encounter Care Teams Air Carrier Inspector Relationship Specialty Start Date End Date Tika Humphries MD [address] [place] [address] PCP - General 01/09/14 documented as of this encounter
--- OUTSIDE RECORDS SUMMARY | 2024-09-30 10:41 | XMS_ITS | Encounter Summary ---
Author Organization [facility] [employer] [facility] tem Address [facility] [place]-[id number] [address] [place] [address] Care Team Providers Care Service Station Helper Name Role Phone Tika Humphries MD Primary Care Provider +1- [phone] Encounter Details Date Type Department Care Team (Late st Contact Info) Description 09/11/2023 Orders Only [facility] [address] [place] [address] External, Scanning Provider Social History [...] Description 11/25/2024 1:00 PM EDT Hospital Encounter [facility] [address] [place] [phone] Lois Madison MD [address] [address] Nonischemic cardiomyopathy ([facility]) 11/25/2024 1:00 PM EDT - 11/25/2024 3:00 PM EDT Surgery [facility] [address] [facility] [place] [phone] Lois Madison MD [address] [place] [address] BIV ICD gen change - BSI 01/06/2025 10:10 AM EDT Ophthalmology Imaging [facility] [address] [place] [phone] 01/06/2025 10:20 AM EDT Office Visit [facility] [address] [place] [address] Daniel Ferrer, OD [address] [place] [address] 02/13/2025 10:30 AM EDT Clinical Support [facility] [address] [place] [phone] 02/13/2025 11:15 AM EDT Office Visit [facility] [address] [place] [address] Rambo Panchal DO [address] [facility] [place] [address] documented as of this encounter Procedures Procedure Name Priority Date/Time Associated Diagnosis Comments ECG 12-LEAD Routine 09/08/2023 10:53 AM EDT documented in this encounter Results * ECG 12 lead (09/08/2023 10:53 AM EDT) us Scanning Provider External ECG ORDERABLES Final Result MANUALLY TRANSCRIBED RESULTS documented in this encounter Visit Diagnoses Not on filedocumented in this encounter Care Teams Service Station Helper Relationship Specialty Start Date End Date Tika Humphries MD [address] [place] [address] PCP - General 01/09/14 documented as of this encounter
--- OUTSIDE RECORDS SUMMARY | 2024-09-30 10:41 | XMS_ITS | Encounter Summary ---
Author Organization [facility] [employer] [facility] tem Address [facility] [place]-[id number] [address] [place] [address] Care Team Providers Care Mixed Animal Veterinarian Name Role Phone Tika Humphries MD Primary Care Provider +1- [phone] Encounter Details Date Type Department Care Team (Late st Contact Info) Description 01/06/2021 [facility] [address] [place] [address] External, Scanning Provider Social History Tobacco Use Types Packs/Day Years Used Date Smoking Tobacco: Never Smokeless Tobacco: Never Alcohol Use Standard Drinks/Week Comments Yes 0 (1 standard drink = 0.6 oz pur e alcohol) BEER ONE A WEEK Childcare Answer Date Recorded Childcare Unknown 10/10/2018 Employment Answer Date Recorded Employment Unknown 10/10/2018 Purpose - Life Answer Date Recorded Purpose and direction in life Unknown Comments Unknown Sex and Gender Information Value Date Recorded Sex Assigned at Not on file Legal Sex Female 11:29 PM EDT Gender Identity Not on file Sexual Orientation Not on file COVID-19 Exposure Response Date Recorded In the last month, have you been in contact with someone who was confirmed or suspected to have Coronavirus / COVID-19? No / Unsure 12/31/2020 10:11 AM EDT documented as of this encounter Plan of Treatment Upcoming Encounters Date Type Department Care Team (Latest Contact Info) Description 11/25/2024 1:00 PM EDT Hospital Encounter [facility] [address] [place] [address] Lois Madison MD [address] [place] [address] Nonischemic cardiomyopathy (CMS-HCC) 11/25/2024 1:00 PM EDT - 11/25/2024 3:00 PM EDT Surgery [facility] [address] [place] [address] Lois Madison MD [address] [place] [address] BIV ICD gen change - BSI 01/06/2025 10:10 AM EDT Ophthalmology Imaging [facility] [address] [place] [address] 01/06/2025 10:20 AM EDT Office Visit [facility] [address] [facility] [address] [place] [address] Daniel Ferrer, ALON [address] [place] [address] 02/13/2025 10:30 AM EDT Clinical Support [facility] [address] [place] [address] [address] [place] [address] 02/13/2025 11:15 AM EDT Office Visit [facility] [address] [place] [address] [address] [place] [address] Rambo Panchal DO [address] [facility] [place] [address] documented as of this encounter Procedures Procedure Name Priority Date/Time Associated Diagnosis Comments LIPID PROFILE Routine 11/26/2020 MULTIPLE LABS Routine 11/25/2020 documented in this encounter Results * Lipid profile (11/26/2020) External Cholesterol 161 MANUALLY TRANSCRIBED RESULTS External Cholesterol:Hdl 0.0 MANUALLY TRANSCRIBED RESULTS External Hdl Cholesterol 67 MANUALLY TRANSCRIBED RESULTS External Ldl (Calc) 79 MANUALLY TRANSCRIBED RESULTS External Triglycerides 72 MANUALLY TRANSCRIBED RESULTS External Very Low Lipoprotein 14 MANUALLY TRANSCRIBED RESULTS us Scanning Provider External LAB BLOOD ORDERABLES Edited Result - Final Performing Organization Address City/[facility]/ZIP Co de Phone Number MANUALLY TRANSCRIBED RESULTS * Multiple labs (11/25/2020) us Scanning Provider External [facility] Final Result Performing Organization Address City/[facility] Co de Phone Number MANUALLY TRANSCRIBED RESULTS documented in this encounter Visit Diagnoses Not on filedocumented in this encounter Care Teams Mixed Animal Veterinarian Relationship Specialty Start Date End Date Tika Humphries MD [address] [place] [address] PCP - General 01/09/14 documented as of this encounter
--- OUTSIDE RECORDS SUMMARY | 2024-09-30 10:41 | XMS_ITS | Encounter Summary ---
Author Organization [facility] tem Address [facility] [id number] [address] [place] [address] Care Team Providers Care Donor Support Technician Name Role Phone Tika Humphries MD Primary Care Provider +1- [phone] Encounter Details Date Type Department Care Team (Late st Contact Info) Description 10/27/2023 Orders Only [facility] [address] [place] [phone] External, Scanning Provider Social History Tobacco [...] Description 11/25/2024 1:00 PM EDT Hospital Encounter [facility] [address] [place] [address] Lois Madison MD [address] [place], [place] [phone] Nonischemic cardiomyopathy ([facility]) 11/25/2024 1:00 PM EDT - 11/25/2024 3:00 PM EDT Surgery [facility] - [facility] [address] [facility] [place] [address] Lois Madison MD [address] [place] [address] BIV ICD gen change - BSI 01/06/2025 10:10 AM EDT Ophthalmology Imaging [facility] [address] [facility] [address] [place] [address] 01/06/2025 10:20 AM EDT Office Visit [facility] [address] [facility] [address] [place] [address] Daniel Ferrer R, OD [address] [facility] [address] [place] [address] 02/13/2025 10:30 AM EDT Clinical Support [facility] [address] [facility] [address] [place] [address] 02/13/2025 11:15 AM EDT Office Visit [facility] [address] [facility] [address] [place] [address] Rambo Panchal DO [address] [facility] [place] [address] documented as of this encounter Visit Diagnoses Not on filedocumented in this encounter Care Teams Donor Support Technician Relationship Specialty Start Date End Date Tika Humphries MD [address] [facility] [address] PCP - General 01/09/14 documented as of this encounter
--- OUTSIDE RECORDS SUMMARY | 2024-09-30 10:41 | XMS_ITS | Encounter Summary ---
Author Organization [facility] [facility] tem Address [facility] [place]-[id number] [address] [place] [address] Care Team Providers Care Family Physician Name Role Phone Tika Humphries MD Primary Care Provider +1- [phone] Encounter Details Date Type Department Care Team (Late st Contact Info) Description 03/16/[address] [facility] Cardiology [address] [place] [phone] Shandra Ruiz MA Cardiomyopathy; Left bundle branch block (LBBB); Nonischemic congestive cardiomyopathy (CMS-HCC); Chronic systolic heart failure (CMS-HCC) Social History Tobacco Use [...] have Coronavirus / COVID-19? No / Unsure 02/22/2022 2:52 PM EDT documented as of this encounter Plan of Treatment Upcoming Encounters Date Type Department Care Team (Latest Contact Info) Description 11/25/2024 1:00 PM EDT Hospital Encounter [facility] [place] [address] [facility] [place] [address] Lois Madison MD [address] [place] [address] Nonischemic cardiomyopathy (CMS-HCC) 11/25/2024 1:00 PM EDT - 11/25/2024 3:00 PM EDT Surgery [facility] [place] [address] [place] [address] Lois Madison MD [address] [place] [address] BIV ICD gen change - BSI 01/06/2025 10:10 AM EDT Ophthalmology Imaging [facility] [address] [place] [address] 01/06/2025 10:20 AM EDT Office Visit [facility] [address] [place] [address] Daniel Ferrer, OD [address] [place] [address] 02/13/2025 10:30 AM EDT Clinical Support [facility] [address] [place] [address] 02/13/2025 11:15 AM EDT Office Visit [facility] [address] [place] [address] Rambo Panchal DO [address] [facility] [place] [address] documented as of this encounter Procedures Procedure Name Priority Date/Time Associated Diagnosis Comments NUC STRESS LEXISCAN Routine 03/15/2022 Cardiomyopathy Left bundle branch block (LBBB) Nonischemic congestive cardiomyopathy (CMS-HCC) Chronic systolic heart failure (CMS-HCC) documented in this encounter Results * Nuc stress Lexiscan (03/15/2022) Anatomical Region Laterality Modality Chest N/A Nuclear Medicine Rambo Panchal DO CV STRESS ORDERABLES Final Re sult documented in this encounter Visit Diagnoses Diagnosis Cardiomyopathy (CMS-HCC) Left bundle branch block (LBBB) Nonischemic congestive cardiomyopathy (CMS-HCC) Chronic systolic heart failure (CMS-HCC) Chronic systolic heart failure Nonischemic cardiomyopathy (CMS-HCC)- Primary Other primary cardiomyopathies Nonischemic cardiomyopathy (CMS-HCC) Other primary cardiomyopathies documented in this encounter Care Teams Family Physician Relationship Specialty Start Date End Date Tika Humphries MD [address] [place] [address] PCP - General 01/09/14 documented as of this encounter
--- OUTSIDE RECORDS SUMMARY | 2024-09-30 10:41 | XMS_ITS | Encounter Summary ---
Author Organization [employer] tem Address [facility] [place][id number] [address] [place] [address] Care Team Providers Care Geospatial Technologist Name Role Phone Tika Humphries MD Primary Care Provider +1- [phone] Encounter Details Date Type Department Care Team (Late st Contact Info) Description 02/16/2024 Orders Only [facility] [address] [address] Kay Ann CMA Paroxysmal atrial fibrillation ([facility]-HCC); Chronic systolic congestive heart failure ([facility]) Social History Tobacco Use Types Packs/Day Years [...] Description 11/25/2024 1:00 PM EDT Hospital Encounter [facility] [place] [address] [facility] [place] [address] Lois Madison MD [address] [place] [address] Nonischemic cardiomyopathy ([facility]) 11/25/2024 1:00 PM EDT - 11/25/2024 3:00 PM EDT Surgery [facility] [place] [address] [place] [address] Lois Madison MD [address] [place] [address] BIV ICD gen change - BSI 01/06/2025 10:10 AM EDT Ophthalmology Imaging [facility] [address] [place] [address] 01/06/2025 10:20 AM EDT Office Visit [facility] [address] [place] [address] Daniel Ferrer, ALON [address] [place] [address] 02/13/2025 10:30 AM EDT Clinical Support [facility] [address] [place] [address] [address] [place] [address] 02/13/2025 11:15 AM EDT Office Visit [facility] [address] [place] [address] Rambo Panchal DO [address] [facility] [place] [address] documented as of this encounter Procedures Procedure Name Priority Date/Time Associated Diagnosis Comments BASIC METABOLIC PANEL Routine 02/15/2024 Paroxysmal atrial fibrillation ([facility]) Chronic systolic congestive heart failure ([facility]) documented in this encounter Results * Basic Metabolic Panel (02/15/2024) 02/15/2024 us Alexa Serna NETWORK COORDINATOR-GOLD PLATER LAB BLOOD ORDERABLES Fin al Result SUNQUEST documented in this encounter Visit Diagnoses Diagnosis Paroxysmal atrial fibrillation (CMS-HCC) Atrial fibrillation Chronic systolic congestive heart failure (CMS-HCC) Nonischemic cardiomyopathy (CMS-HCC)- Primary Other primary cardiomyopathies Nonischemic cardiomyopathy (CMS-HCC) Other primary cardiomyopathies documented in this encounter Care Teams Geospatial Technologist Relationship Specialty Start Date End Date Tika Humphries MD [address] [place] [address] PCP - General 01/09/14 documented as of this encounter
--- OUTSIDE RECORDS SUMMARY | 2024-09-30 10:41 | XMS_ITS | Encounter Summary ---
Author Organization [employer] tem Address [id number] [address] [place] [address] Care Team Providers Care Fruit Receiver Name Role Phone Tika Humphries MD Primary Care Provider +- [phone] Reason for Referral * Consultation (Routine) - Pending Review Specialty Diagnoses / Procedures Referred By Contac t Referred To Contact Cardiology Diagnoses Automatic implantable cardioverter-defibrillator in situ Rambo Panchal DO [address] [place] [address], [address] [place] [address] Phone: tel: fax: [facility] [address] [place] [address] [address] [place] [address] Phone: tel: fax: Referral ID Status Reason Start Date Expiration Date Visits Requested Visits Authorized [id number] Pending Review Specialty Services Required 05/15/2024 05/15/2025 1 1 Reason for Visit * Reason Onset Date Comments EP Referral 05/10/2024 Encounter Details Date Type Department Care Team ([facility] st Contact Info) Description 05/10/2024 Telephone [facility] [address] [place] [address] [address] [place] [address] Penny Chairez, RN EP Referral Social History Tobacco Use Types Packs/Day Years [...] on file documented as of this encounter Miscellaneous Notes * Telephone Encounter - Penny Chairez RN - 05/10/2024 3:42 PM EST Rimma called in to schedule an EP appointment in July as discussed with Delfino at 02/01/24 appt. No official referral has been placed, but [facility]'s note reads: Her battery longevity estimate is 11 months, and she will establish with an staff climate scientist atnext visit and device check in 6 months. Routing to [facility], okay for official referral? * Telephone Encounter - Rambo Panchal DO - 05/10/2024 3:42 PM EST Yes, I believe this was on the discharge instructions from her office visit. * Telephone Encounter - Roslyn Wright RN - 05/10/2024 3:42 PM EST Referral placed. Due for July device and ep appt. * Telephone Encounter - Nicole Pelaez - 05/10/2024 3:42 PM EST 05/15- lmom to [facility] HAT [facility]DEL EP morris w/device check documented in this encounter Plan of Treatment Upcoming Encounters Date Type Department Care Team (Latest Contact Info) Description 11/25/2024 1:00 PM EDT Hospital Encounter [facility] [place] [address] [place] [address] Lois Madison MD [address] [place], [place] [id number] Nonischemic cardiomyopathy (CMS-HCC) 11/25/2024 1:00 PM EDT - 11/25/2024 3:00 PM EDT Surgery [facility] [place] [address] [place] [address] Lios Madison MD [address] [place] [address] BIV ICD gen change - BSI 01/06/2025 10:10 AM EDT Ophthalmology Imaging [facility] [address] [place] [address] 01/06/2025 10:20 AM EDT Office Visit [facility] [address] [place] [address] Daniel Ferrer R, OD [address] [place] [address] 02/13/2025 10:30 AM EDT Clinical Support [facility] [address] [place] [address] 02/13/2025 11:15 AM EDT Office Visit [facility] [address] [place] [address] Rambo Panchal, [address] [facility], [address] [place] [address] Scheduled Referrals Name Type Priority Associated Diagnoses Order Schedule [facility] - Electrophysiology - [place], [place] Outpatient Referral Routine Automatic implantable cardioverter-defib rillator in situ 1 Occurrences starting 05/15/2024 until 05/15/2025 documented as of this encounter Visit Diagnoses Diagnosis Automatic implantable cardioverter-defibrillator in situ- Primary Nonischemic cardiomyopathy (CMS-HCC)- Primary Other primary cardiomyopathies Nonischemic cardiomyopathy (CMS-HCC) Other primary cardiomyopathies documented in this encounter Care Teams Fruit Receiver Relationship Specialty Start Date End Date Tika Humphries MD [address] [place] [address] PCP - General 01/09/14 documented as of this encounter
--- OUTSIDE RECORDS SUMMARY | 2024-09-30 10:41 | XMS_ITS | Encounter Summary ---
Author Organization [employer] Address [facility] [id number] [address] [place] [address] Care Team Providers Care Farebox Repairer Name Role Phone Tika Humphries MD Primary Care Provider [phone]- [phone] Encounter Details Date Type Department Care Team (Late st Contact Info) Description 04/05/2023 [facility] [address] [place] [phone] Daniel Ferrer OD [address] [place] [address] Social History Tobacco Use Types Packs/Day Years [...] encounter Miscellaneous Notes * Telephone Encounter - Jacqueline Fukn - 04/05/2023 12:43 PM EST Pt requesting refill of timolol. Please process through [facility] in [place], [place]. Thank You. * Telephone Encounter - LANG Mandujano - 04/05/2023 12:43 PM EST Erx pending with refills -Radha documented in this encounter Plan of Treatment Upcoming Encounters Date Type Department Care Team (Latest Contact Info) Description 11/25/2024 1:00 PM EDT Hospital Encounter [facility] [address] [place] [address] Lois Madison MD [address] [place] [address] Nonischemic cardiomyopathy (CMS-HCC) 11/25/2024 1:00 PM EDT - 11/25/2024 3:00 PM EDT Surgery [facility] [place] [address] [place] [address] Lois Madison MD [address] [place] [address] BIV ICD gen change - BSI 01/06/2025 10:10 AM EDT Ophthalmology Imaging [facility] [address] [place] [address] 01/06/2025 10:20 AM EDT Office Visit [facility] [address] [place] [address] Daniel Ferrer, ALON [address] [place] [address] 02/13/2025 10:30 AM EDT Clinical Support [facility] [address] [place] [address] [address] [place] [address] 02/13/2025 11:15 AM EDT Office Visit [facility] [address] [place] [address] [address] [place] [address] Rambo Panchal DO [address] [facility], [address] [place] [address] documented as of this encounter Visit Diagnoses Not on filedocumented in this encounter Care Teams Farebox Repairer Relationship Specialty Start Date End Date Tika Humphries MD [address] [place] [address] PCP - General 01/09/14 documented as of this encounter
--- OUTSIDE RECORDS SUMMARY | 2024-09-30 10:41 | XMS_ITS | Encounter Summary ---
Author Organization [employer] Address [facility] [id number] [address] 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 Social History Tobacco Use Types Packs/Day Years [...] Description 11/25/2024 1:00 PM EDT Hospital Encounter [facility] [place] [address] [place] [address] Lois Madison MD [address] [place] [address] Nonischemic cardiomyopathy ([facility]-HCC) 11/25/2024 1:00 PM EDT - 11/25/2024 3:00 PM EDT Surgery [facility] [address] [place] [address] Lois Madison MD [address] [place] [address] BIV ICD gen change - BSI 01/06/2025 10:10 AM EDT Ophthalmology Imaging [facility] [address] [place] [address] 01/06/2025 10:20 AM EDT Office Visit [facility] [address] [place] [address] Daniel Ferrer R, OD [address] [place] [address] 02/13/2025 10:30 AM EDT Clinical Support [facility] [address] [place] [address] 02/13/2025 11:15 AM EDT Office Visit [facility] [address] [place] [address] Rambo Panchal DO [address] [facility], [address] [place] [address] documented as of this encounter Procedures Procedure Name Priority Date/Time Associated Diagnosis Comments ECHO COMPLETE WO CONTRAST Routine 10/26/2023 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 Nonischemic cardiomyopathy (CMS-HCC)- Primary Other primary cardiomyopathies Nonischemic cardiomyopathy (CMS-HCC) Other primary cardiomyopathies documented in this encounter Care Teams Local Coordinator Relationship Specialty Start Date End Date Tika Humphries MD [address] [place] [address] PCP - General 01/09/14 documented as of this encounter
--- OUTSIDE RECORDS SUMMARY | 2024-09-30 10:41 | XMS_ITS | Clinical Summary ---
Author Organization [employer] tem Address [facility] [id number] [address] [place] [address] Care Team Providers Care Director Digital Catalogue Name Role Phone Tika Humphries MD Primary Care Provider [phone]- [phone] Allergies Active Allergy Reactions Criticality Noted Date Comments Cefaclor 02/15/2016 Other reaction(s): Intolerance-unknown Medications acetaminophen (TYLENOL) 325 mg tablet Take 2 tablets (650 mg total) by mouth every 6 (six) hours as needed for pain. Active allopurinol (ZYLOPRIM) 100 mg tablet Take 1 tablet (100 mg total) by mouth in the morning. Active levothyroxine (SYNTHROID, LEVOTHROID) 50 MCG tablet Take 1 tablet (50 mcg total) by mouth in the morning. Active magnesium oxide 500 mg tablet Take 1 tablet (500 mg total) by mouth in the morning. Active simvastatin (ZOCOR) 40 mg tablet Take 1 tablet (40 mg total) by mouth nightly. Active ybwucpcd-zumz-SB-c alcium &mins (THERAGRAN-M) 9 mg iron-400 mcg tablet Take 1 tablet by mouth in the morning. Active cholecalciferol, vitamin D3, 2,000 units tablet Take 1 tablet (2,000 Units total) by mouth in the morning. Active omega-3/dha/epa/dp a/fish oil (OMEGA-3 2100 ORAL) Take by mouth 2 (two) times a day. Active loratadine (CLARITIN) 10 mg tablet Take 1 tablet (10 mg total) by mouth as needed for allergies. Active L.acid/B.bifidum/B .animal/FOS (PROBIOTIC COMPLEX ORAL) Take by mouth daily. Active calcium carbonate (CALCIUM 500 ORAL) Take by mouth daily. Active esomeprazole (NexIUM) 20 mg capsule Take 1 capsule (20 mg total) by mouth in the evening. 1 Active gabapentin (NEURONTIN) 100 mg capsule Take 1 capsule (100 mg total) by mouth 3 (three) times a day. Active ferrous sulfate 325 (65 FE) mg EC tablet Take 1 tablet (325 mg total) by mouth every other day. Active sertraline (ZOLOFT) 25 mg tablet Take 1 tablet (25 mg total) by mouth in the morning. 4 Active empagliflozin (JARDIANCE) 10 mg tablet tablet Take 1 tablet (10 mg total) by mouth in the morning. 30 tablet 11 4 Active furosemide (LASIX) 20 mg tabletIndications: 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),Persiste nt atrial fibrillation (CMS-HCC),Nonische sarah congestive cardiomyopathy (CMS-HCC),Benign essential hypertension,Left bundle branch block (LBBB),Automatic implantable cardioverter-defib rillator in situ Take 1 tablet (20 mg total) by mouth as needed (fluid wt gain). Take 1 tab if fluid wt gain of 3# or more in 1 day or 4-5# in 4 days 4 Active timolol (TIMOPTIC) 0.5 % ophthalmic solutionIndication s:Primary open angle glaucoma of right eye, mild stage Administer 1 drop to both eyes in the morning and 1 drop before bedtime. 15 mL 3 4 Active losartan (COZAAR) 25 mg tablet Take 0.5 tablets (12.5 mg total) by mouth in the morning. 4 Active carvediloL (COREG) 6.25 mg tabletIndications: Paroxysmal atrial fibrillation (CMS-HCC) Take 1 tablet in the morning, 2 tablets in the evening 90 tablet 3 4 Active spironolactone (ALDACTONE) 25 mg tabletIndications: 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),Persiste nt atrial fibrillation (CMS-HCC),Nonische sarah congestive cardiomyopathy (CMS-HCC),Benign essential hypertension,Left bundle branch block (LBBB),Automatic implantable cardioverter-defib rillator in situ Take 0.5 tablets (12.5 mg total) by mouth in the morning. 4 Active XARELTO 20 mg tablet tablet TAKE 1 TABLET(20 MG) BY MOUTH IN THE MORNING 30 tablet 9 4 Active Active Problems Problem Noted Date Diagnosed Date Nonischemic cardiomyopathy 09/30/2024 Hypertension 01/26/2024 Hyperlipemia 01/26/2024 CHF (congestive heart failure) 10/18/2018 Overview (01/26/2024): Last Assessment & Plan: Assessment: has had in the past, monitored per PCP Overweight 03/17/2016 Atrial fibrillation 02/24/2016 Automatic implantable cardio verter-defibrillator in situ [facility]. 04/26/2013 Nonischemic congestive cardiomyopathy 04/11/2013 Overview (01/26/2024): Last Assessment & Plan: Assessment: monitored per PCP Benign essential hypertension 08/16/2012 Cancer Overview (08/17/2017): BREAST Gout Dyslipidemia Dyspnea Edema Dizziness Vertigo Left bundle branch block (LBBB) Resolved Problems Problem Noted Date Diagnosed Date Resolved Date Chronic systolic heart failure 04/11/2013 12/30/2020 Cardiomyopathy 10/18/2018 Encounters Date Type Department Care Team Description 09/30/2024 Telephone [facility] [address] [place] [address] Stephanie Kruger LPN PRE OP INSTRUCTIONS - BIV ICD gen change 08/13/2024 Orders Only [facility] [address] [place] [address] Shandra Ruiz MA Automatic implantable cardioverter-defibr illator in situ 08/12/2024 Orders Only [facility] [address] [place] [address] External, Scanning Provider 08/09/2024 11:30 AM EDT Office Visit [facility] [address] [place] [address] Lois Madison MD Persistent atrial fibrillation (CMS-HCC) (Primary Dx); Automatic implantable cardioverter-defibr illator in situ 08/09/2024 11:00 AM EDT Clinical Support [facility] [address] [place] [address] Automatic implantable cardioverter-defibr illator in situ [employer] (Primary Dx) 08/09/2024 Telephone [facility] [address] [place] [address] Stephanie Kruger LPN EP SURGERY - BIV ICD gen change 08/09/2024 Travel 07/03/2024 1:20 PM EST Office Visit [facility] [address] [place] [address] Daniel Ferrer R, OD Primary open angle glaucoma of right eye, mild stage (Primary Dx); Pseudophakia 07/03/2024 12:50 PM EST Ophthalmology Imaging [facility] [address] [place] [address] Primary open angle glaucoma of right eye, mild stage 07/03/2024 Travel from Last 3 Months Family History Medical History Relation Name Comments Coronary artery disease Father Hypertension Mother Relation Name Status Comments Father Mother Social History Tobacco Use Types Packs/Day Years Used Date Smoking Tobacco: Never Smokeless Tobacco: Never Tobacco Cessation:Counseling Given: Not Answered [...] Sign Reading Time Taken Comments Blood Pressure 114/62 08/09/2024 11:09 AM EDT Pulse 70 08/09/2024 11:09 AM EDT Temperature 36.2 C (97.1 F) 11/14/2019 11:40 AM EDT Respiratory Rate - - Oxygen Saturation 96% 08/09/2024 11:09 AM EDT Inhaled Oxygen Concentration - - Weight 97.5 kg (215 lb) 08/09/2024 11:09 AM EDT Height 175.3 cm (5' 9 ) 08/09/2024 11:09 AM EDT Body Mass Index 31.75 08/09/2024 11:09 AM EDT Plan of Treatment Upcoming Encounters Date Type Department Care Team (Latest Contact Info) Description 11/25/2024 1:00 PM EDT Hospital Encounter [facility] [place] [address] [place] [phone] Lois Madison MD [address] [place] [address] Nonischemic cardiomyopathy ([facility]-HCC) 11/25/2024 1:00 PM EDT - 11/25/2024 3:00 PM EDT Surgery [facility] [place] [address] [place] [address] Lois Madsion MD [address] [place] [address] BIV ICD gen change - BSI 01/06/2025 10:10 AM EDT Ophthalmology Imaging [facility] [address] [place] [address] 01/06/2025 10:20 AM EDT Office Visit [facility] [address] [place] [address] Daniel Ferrer, OD [address] [place] [address] 02/13/2025 10:30 AM EDT Clinical Support [facility] [address] [place] [address] [address] [place] [address] 02/13/2025 11:15 AM EDT Office Visit [facility] [address] [place] [address] [address] [place] [address] Rambo Panchal, [address] [facility], [address] [place] [address] Health Maintenance Due Date Last Done Comments Depression Screening 1957 DTaP,Tdap and Td Vaccines (1 - Tdap) 04/14/2012 04/13/2012 Fall Risk Screening 2012 COVID-19 Vaccine (2023-2 5 season) 2023 02/28/2021, 07/23/2020, 06/27/2020 Influenza Vaccine 12/30/2024 02/16/2024, , 02/10/2022, Additional history exists Tobacco Screening 08/09/2025 08/09/2024 Zoster (Shingles) Vaccine Completed 11/30/2017, Medical Devices Implanted Type Area [employer] T[employer] Supervisor Device Identifier Shelf Expiration Date Model / Serial / Lot Biv Icd-02/18/2016 Implanted:02/17 by Luis Alberto Diaz MD (Quantity not on file) ICD [employer] G148 INOGEN X4 EMPLOYMENT ADVISOR-D / [id number] / Procedures Procedure Name Priority Date/Time Associated Diagnosis Comments REMOTE DEVICE CHECK Routine 09/24/2024 1 :47 AM EDT REMOTE DEVICE CHECK Routine 09/10/2024 2 :27 AM EDT POCT EKG Routine 08/09/2024 Persistent atrial fibrillation ([facility]-HCC) DEVICE INTERROGATION Routine 08/09/2024 Automatic implantable cardioverter-defibri llator in situ IN CLINIC DEVICE CHECK Routine 08/08/2024 11:00 PM EDT REMOTE DEVICE CHECK Routine 08/06/2024 1 2:44 AM EDT DON VISUAL FIELD - OU - BOTH EYES Routine 07/03/2024 12:47 PM EST Primary open angle glaucoma of right eye, mild stage [place] INTERROGATION EVAL REMOTE </90 D 1/2/SYNTHETIC GEM PRESS OPERATOR LD DFB Routine 07/02/2024 12:35 PM EST from Last 3 Months Results * Remote Device Check (09/24/2024 1:47 AM EDT) Anatomical Region Laterality Modality Other 09/24/2024 1:47 AM EDT Napoleon Schaffer MD HEALTH MAINTENANCE Final Result * Remote Device Check (09/10/2024 2:27 AM EDT) Anatomical Region Laterality Modality Other 09/10/2024 2:27 AM EDT Addy Pelaez MD HEALTH MAINTENANCE Final Resu lt * Device Interrogation (08/09/2024) Anatomical Region Laterality Modality Other Lois Madison MD CV CARDIAC SERVICES ORDER [place]O Final Result * POCT EKG (08/09/2024) Impressions MANUALLY TRANSCRIBED RESULTS - 08/09/2024 See scanned documentation for EKG reading and physician interpretation. Lois Madison MD ECG ORDERABLES Edited Re sult - Final MANUALLY TRANSCRIBED RESULTS * In Clinic Device Check (08/08/2024 11:00 PM EDT) Anatomical Region Laterality Modality Other 08/08/2024 11:0 0 PM EDT us Lois Madison MD HEALTH MAINTENANCE Final Result * Remote Device Check (08/06/2024 12:44 AM EDT) Anatomical Region Laterality Modality Other 08/06/2024 12:4 4 AM EDT Addy Pelaez MD HEALTH MAINTENANCE Final Resu lt * Don Visual Field - OU - Both Eyes (07/03/2024 12:47 PM EST) Narrative MANUALLY TRANSCRIBED RESULTS - 07/03/2024 1:28 PM EST Right Eye Reliability was good. Progression has been stable. Foveal threshold was normal. Findings include normal observations. Follow up actions include reviewed testing with patient, continue observation, continue drops as directed. Left Eye Reliability was good. Progression has been stable. Foveal threshold was normal. Findings include normal observations. Follow up actions include reviewed testing with patient, continue observation, continue drops as directed. Notes Clean VF; scattered missed points OU Daniel Ferrer OD OPHTHALMOLOGY SERVICES ORDER TEMO Final Result Performing Organization Address City/State/[facility] Co de Phone Number MANUALLY TRANSCRIBED RESULTS * Remote Device Check (07/02/2024 12:35 PM EST) Anatomical Region Laterality Modality Other 07/02/2024 12:3 5 PM EST Nicola Gordon MD HEALTH MAINTENANCE Final Result from Last 3 Months Insurance [employer] [place] Care Teams Director Digital Catalogue Relationship Specialty Start Date End Date Tika Humphries MD [address] [place] [address] PCP - General 01/09/14
--- OUTSIDE RECORDS SUMMARY | 2024-09-30 10:41 | XMS_ITS | Encounter Summary ---
Author Organization [facility] tem Address [facility]-[id number] [address] [place] [address] Care Team Providers Care Laundry Operator Name Role Phone Tika Humphries MD Primary Care Provider +1- [phone] Encounter Details Date Type Department Care Team (Late st Contact Info) Description 03/02/2021 [facility] [address] [place] [phone] April Goodman RMA At risk for side effect of medication Social History Tobacco Use Types Packs/Day Years [...] Description 11/25/2024 1:00 PM EDT Hospital Encounter [facility] [address] [place] [phone] Lois Madison MD [address] [place] [address] Nonischemic cardiomyopathy ([facility]-HCC) 11/25/2024 1:00 PM EDT - 11/25/2024 3:00 PM EDT Surgery [facility] [address] [place] [address] Lois Madison MD [address] [place] [address] BIV ICD gen change - BSI 01/06/2025 10:10 AM EDT [facility] [address] [place] [address] 01/06/2025 10:20 AM EDT Office Visit [facility] [address] [place] [address] Daniel Ferrer, OD [address] [place] [address] 02/13/2025 10:30 AM EDT Clinical Support [facility] [address] [place] [address] 02/13/2025 11:15 AM EDT Office Visit [facility] [address] [facility] [place] [address] Rambo Panchal, [address] [facility] [place] [address] documented as of this encounter Procedures Procedure Name Priority Date/Time Associated Diagnosis Comments MAGNESIUM Routine 02/26/2021 At risk for side effect of medication documented in this encounter Results * Magnesium (02/26/2021) 02/26/2021 us Karol Nascimento INTERN RETAIL-STOREKEEPER STEWARD LAB BLOOD ORDERABLES Fi nal Result [employer] documented in this encounter Visit Diagnoses Diagnosis At risk for side effect of medication Nonischemic cardiomyopathy (CMS-HCC)- Primary Other primary cardiomyopathies Nonischemic cardiomyopathy (CMS-HCC) Other primary cardiomyopathies documented in this encounter Care Teams Laundry Operator Relationship Specialty Start Date End Date Tika Humphries MD [address] [place] [address] PCP - General 01/09/14 documented as of this encounter
--- OUTSIDE RECORDS SUMMARY | 2024-09-30 10:41 | XMS_ITS | Encounter Summary ---
Author Organization [facility] tem Address [facility]-[id number] [address] [place] [address] Care Team Providers Care Deputy Director Of Nursing Name Role Phone Tika Humphries MD Primary Care Provider +1- [phone] Encounter Details Date Type Department Care Team (Late st Contact Info) Description 01/22/2024 Orders Only [facility] [address] [place] [phone] Kay Ann CMA Chronic combined systolic and diastolic congestive heart failure ([facility]) Social History Tobacco Use Types Packs/Day Years [...] Hospital Encounter [facility] [place] [address] [facility] [place] [address] Lois Madison MD [address] [place] [address] Nonischemic cardiomyopathy ([facility]) 11/25/2024 1:00 PM EDT - 11/25/2024 3:00 PM EDT Surgery [facility] [place] [address] [place] [address] Lois Madison MD [address] [place] [address] BIV ICD gen change - BSI 01/06/2025 10:10 AM EDT Ophthalmology [facility] [address] [place] [address] 01/06/2025 10:20 AM EDT Office Visit [facility] [address] [place] [address] Daniel Ferrer, OD [address] [place] [address] 02/13/2025 10:30 AM EDT Clinical Support [facility] [address] [place] [address] 02/13/2025 11:15 AM EDT Office Visit [facility] [address] [place] [address] Rambo Panchal DO [address] [facility] [place] [address] documented as of this encounter Procedures Procedure Name Priority Date/Time Associated Diagnosis Comments BASIC METABOLIC PANEL Routine 01/22/2024 Chronic combined systolic and diastolic congestive heart failure ([facility]) documented in this encounter Results * Basic Metabolic Panel (01/22/2024) 01/22/2024 us Alexa Serna APRN-STITCH BONDING MACHINE DRAWER IN LAB BLOOD ORDERABLES Fin al Result [employer] documented in this encounter Visit Diagnoses Diagnosis 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) Nonischemic cardiomyopathy (CMS-HCC)- Primary Other primary cardiomyopathies Nonischemic cardiomyopathy (CMS-HCC) Other primary cardiomyopathies documented in this encounter Care Teams Deputy Director Of Nursing Relationship Specialty Start Date End Date Tika Humphries MD [address] [place] [address] PCP - General 01/09/14 documented as of this encounter
--- OUTSIDE RECORDS SUMMARY | 2024-09-30 10:41 | XMS_ITS | Encounter Summary ---
Author Organization [employer] tem Address [facility]-[id number] [address] [place] [address] Care Team Providers Care Demonstrator Knitting Name Role Phone Tika Humphries MD Primary Care Provider +1- [phone] Encounter Details Date Type Department Care Team (Late st Contact Info) Description 10/27/2023 Orders Only [facility] [address] [facility] [address] [place] [address] Allison Mariano CMA 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); Persistent atrial fibrillation (CMS-HCC); Nonischemic congestive cardiomyopathy (CMS-HCC); Benign essential hypertension; Left bundle branch block (LBBB); Automatic implantable cardioverter-defibrillat or in situ [employer]. Social History Tobacco Use Types Packs/Day [...] Description 11/25/2024 1:00 PM EDT Hospital Encounter [facility] [place] [address] [place] [address] Lois Madison MD [address] [place] [address] Nonischemic cardiomyopathy ([facility]-HCC) 11/25/2024 1:00 PM EDT - 11/25/2024 3:00 PM EDT Surgery [facility] [place] [address] [place] [address] Lois Madison MD [address] [place] [address] BIV ICD gen change - BSI 01/06/2025 10:10 AM EDT Ophthalmology [facility] [address] [place] [address] 01/06/2025 10:20 AM EDT Office Visit [facility] [address] [place] [address] Daniel Ferrer, OD [address] [place] [address] 02/13/2025 10:30 AM EDT Clinical Support [facility] [address] [place] [address] 02/13/2025 11:15 AM EDT Office Visit [facility] [address] [place] [address] Rambo Panchal DO [address] [facility] [place] [address] documented as of this encounter Procedures Procedure Name Priority Date/Time Associated Diagnosis Comments B-TYPE NATRIURETIC PEPTIDE Routine 10/26/2023 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) Persistent atrial fibrillation (CMS-HCC) Nonischemic congestive cardiomyopathy (CMS-HCC) Benign essential hypertension Left bundle branch block (LBBB) Automatic implantable cardioverter-defibrillat or in situ [employer] BASIC METABOLIC PANEL Routine 10/26/2023 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) Persistent atrial fibrillation (CMS-HCC) Nonischemic congestive cardiomyopathy (CMS-HCC) Benign essential hypertension Left bundle branch block (LBBB) Automatic implantable cardioverter-defibrillat or in situ [employer] documented in this encounter Results * Basic Metabolic Panel (10/26/2023) 10/26/2023 Arpit Melissa MD LAB BLOOD ORDERABLES Final Re sult Performing Organization Address [facility] de Phone Number [employer] * BNP (10/26/2023) 10/26/2023 Arpit Melissa MD LAB BLOOD ORDERABLES Final Re sult Performing Organization Address [facility] Co de Phone Number [employer] documented in this encounter Visit Diagnoses Diagnosis 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) Persistent atrial fibrillation (CMS-HCC) Atrial fibrillation Nonischemic congestive cardiomyopathy (CMS-HCC) Benign essential hypertension Essential hypertension, benign Left bundle branch block (LBBB) Automatic implantable cardioverter-defibrillator in situ [employer] Nonischemic cardiomyopathy (CMS-HCC)- Primary Other primary cardiomyopathies Nonischemic cardiomyopathy (CMS-HCC) Other primary cardiomyopathies documented in this encounter Care Teams Demonstrator Knitting Relationship Specialty Start Date End Date Tika Humphries MD [address] [place] [address] PCP - General 01/09/14 documented as of this encounter
--- OUTSIDE RECORDS SUMMARY | 2024-09-30 10:41 | XMS_ITS | Encounter Summary ---
Author Organization [employer] tem Address [facility]-[id number] [address] [place] [address] Care Team Providers Care Bologna Lacer Name Role Phone Tika Humphries MD Primary Care Provider +1- [phone] Encounter Details Date Type Department Care Team (Late st Contact Info) Description 12/07/2023 Orders Only [facility] [address] [facility] [address] [place] [address] Kay Ann CMA Chronic diastolic congestive heart failure (CMS-HCC); Left bundle branch block (LBBB); Atrial fibrillation, unspecified type (CMS-HCC); Automatic implantable cardioverter-defibrill ator in situ [employer] Benign essential hypertension; Dyslipidemia; COOK (dyspnea on exertion); Family history of coronary artery disease in father Social History Tobacco Use Types Packs/Day Years [...] 11/25/2024 1:00 PM EDT Hospital Encounter [facility] [place] [address] [place] [address] Lois Madison MD [address] [place], [place] [id number] Nonischemic cardiomyopathy (CMS-HCC) 11/25/2024 1:00 PM EDT - 11/25/2024 3:00 PM EDT Surgery [facility] [place] [address] [place] [address] Lois Madison MD [address] [place] [address] BIV ICD gen change - BSI 01/06/2025 10:10 AM EDT Ophthalmology Imaging [facility] [address] [place] [address] 01/06/2025 10:20 AM EDT Office Visit [facility] [address] [place] [address] Daniel Ferrer R, OD [address] [place] [address] 02/13/2025 10:30 AM EDT Clinical Support [facility] [address] [place] [address] 02/13/2025 11:15 AM EDT Office Visit [facility] [address] [place] [address] Rambo Panchal, [address] [facility] [place] [address] documented as of this encounter Procedures Procedure Name Priority Date/Time Associated Diagnosis Comments NUC STRESS LEXISCAN Routine 12/06/2023 Chronic diastolic congestive heart failure (CMS-HCC) Left bundle branch block (LBBB) Atrial fibrillation, unspecified type (CMS-HCC) Automatic implantable cardioverter-defibrilla tor in situ [employer] Benign essential hypertension Dyslipidemia COOK (dyspnea on exertion) Family history of coronary artery disease in father documented in this encounter Results * Nuc stress Lexiscan (12/06/2023) Anatomical Region Laterality Modality Chest N/A Nuclear Medicine us Alexa Serna APRN-SUSTAINABLE AGRICULTURE FACULTY CV STRESS ORDERABLES Ottoniel phil Result - Final documented in this encounter Visit Diagnoses Diagnosis Chronic diastolic congestive heart failure (CMS-HCC) Left bundle branch block (LBBB) Atrial fibrillation, unspecified type (CMS-HCC) Automatic implantable cardioverter-defibrillator in situ [employer] Benign essential hypertension Essential hypertension, benign Dyslipidemia Other and unspecified hyperlipidemia COOK (dyspnea on exertion) Other dyspnea and respiratory abnormality Family history of coronary artery disease in father Nonischemic cardiomyopathy (CMS-HCC)- Primary Other primary cardiomyopathies Nonischemic cardiomyopathy (CMS-HCC) Other primary cardiomyopathies documented in this encounter Care Teams Bologna Lacer Relationship Specialty Start Date End Date Tika Humphries MD [address] [place] [address] PCP - General 01/09/14 documented as of this encounter
--- OUTSIDE RECORDS SUMMARY | 2024-09-30 10:41 | XMS_ITS | Encounter Summary ---
Author Organization [employer] tem Address [facility]-[id number] [address] [place] [address] Care Team Providers Care Scrub Tech Name Role Phone Tika Humphries MD Primary Care Provider +1- [phone] Encounter Details Date Type Department Care Team (Late st Contact Info) Description 03/08/2021 Refill [facility] [address] [place] [address] Daniel Ferrer OD [address] [place] [address] Social History Tobacco Use Types Packs/Day Years [...] encounter Miscellaneous Notes * Telephone Encounter - Frida Dupree - 03/08/2021 9:48 AM EST Pt called needing refills on her Timolol sent to [facility] in [place]. Pt is asking if she could have it ordered as a 90 day supply please. Thanks * Telephone Encounter - Daniel Ferrer, ALON - 03/08/2021 9:48 AM EST Please order 90 day supply (3 bottles) and send for badge approval. Thank you. documented in this encounter Plan of Treatment Upcoming Encounters Date Type Department Care Team (Latest Contact Info) Description 11/25/2024 1:00 PM EDT Hospital Encounter [facility] [place] [address] [place] [address] Lois Madison MD [address] [place] [address] Nonischemic cardiomyopathy ([facility]-HCC) 11/25/2024 1:00 PM EDT - 11/25/2024 3:00 PM EDT Surgery [facility] [place] [address] [place] [address] Lois Madison MD [address] [place] [address] BIV ICD gen change - BSI 01/06/2025 10:10 AM EDT Ophthalmology Imaging [facility] [address] [place] [address] 01/06/2025 10:20 AM EDT Office Visit [facility] [address] [place] [address] Daniel Ferrer, OD [address] [place] [address] 02/13/2025 10:30 AM EDT Clinical Support [facility] [address] [place] [address] 02/13/2025 11:15 AM EDT Office Visit [facility] [address] [facility] [address] [place] [address] Rambo Panchal DO [address] [facility] [place] [address] documented as of this encounter Visit Diagnoses Not on filedocumented in this encounter Care Teams Scrub Tech Relationship Specialty Start Date End Date Tika Humphries MD [address] [place] [address] PCP - General 01/09/14 documented as of this encounter
--- OUTSIDE RECORDS SUMMARY | 2024-09-30 10:41 | XMS_ITS | Encounter Summary ---
Author Organization [facility] tem Address [facility]-[id number] [address] [place] [address] Care Team Providers Care Operations Support Professionals Name Role Phone Tika Humphries MD Primary Care Provider +1- [phone] Encounter Details Date Type Department Care Team (Late st Contact Info) Description 09/17/2020 Orders Only [facility] [address] [place] [phone] April Goodman RMA Current use of half-way anticoagulation; Dyslipidemia Social History Tobacco Use Types Packs/Day Years [...] Description 11/25/2024 1:00 PM EDT Hospital Encounter [facility] [address] [place] [address] Lois Madison MD [address] [place] [address] Nonischemic cardiomyopathy (CMS-HCC) 11/25/2024 1:00 PM EDT - 11/25/2024 3:00 PM EDT Surgery [facility] [address] [place] [address] Lois Madison MD [address] [place] [address] BIV ICD gen change - BSI 01/06/2025 10:10 AM EDT [facility] [address] [place] [address] 01/06/2025 10:20 AM EDT Office Visit [facility] [address] [place] [address] Daniel Ferrer, OD [address] [place] [address] 02/13/2025 10:30 AM EDT Clinical Support [facility] [address] [place] [address] 02/13/2025 11:15 AM EDT Office Visit [facility] [address] [place] [address] Rambo Panchal, [address] [place] [address], [address] [place] [address] documented as of this encounter Procedures Procedure Name Priority Date/Time Associated Diagnosis Comments CBC (NO DIFF) Routine 06/27/2020 Current use of half-way anticoagulation LIPID PROFILE Routine 06/27/2020 Dyslipidemia BASIC METABOLIC PANEL Routine 06/27/2020 Current use of half-way anticoagulation documented in this encounter Results * Lipid panel (06/27/2020) External Cholesterol 182 [employer] External Hdl Cholesterol 61 [employer] External Ldl (Calc) 84 [employer] External Triglycerides 148 [employer] External Very Low Lipoprotein 30 [employer] 06/27/2020 us Alexa Serna HOUSING INSPECTOR-GAS PIT WORKER LAB BLOOD ORDERABLES Fin al Result Performing Organization Address City/[facility]/ZIP Co de Phone Number [employer] * CBC (06/27/2020) 06/27/2020 Julio Manning HOUSING INSPECTOR-GAS PIT WORKER LAB BLOOD ORDERABLES Final Result Performing Organization Address [facility] Co de Phone Number [employer] * Basic Metabolic Panel (06/27/2020) 06/27/2020 Julio Manning HOUSING INSPECTOR-GAS PIT WORKER LAB BLOOD ORDERABLES Final Result Performing Organization Address [facility] Co de Phone Number [employer] documented in this encounter Visit Diagnoses Diagnosis Current use of half-way anticoagulation Dyslipidemia Other and unspecified hyperlipidemia Nonischemic cardiomyopathy (CMS-HCC)- Primary Other primary cardiomyopathies Nonischemic cardiomyopathy (CMS-HCC) Other primary cardiomyopathies documented in this encounter Care Teams Operations Support Professionals Relationship Specialty Start Date End Date Tika Humphries MD [address] [place] [address] PCP - General 01/09/14 documented as of this encounter
--- OUTSIDE RECORDS SUMMARY | 2024-09-30 10:41 | XMS_ITS | Continuity of Care Document ---
Author Organization [facility] Address [address] [place] [address] Phone [phone] Care Team Providers Care Hand Glass Cutter Name Role Phone Tika Humphries M.D. Care Team Information Rece iver [phone] Assessments Date Code Description Provider 03/25/2022 E87.1 Hypo-osmolality and hyponatr nain Stovall MD 03/25/2022 E86.9 Volume depletion, unspecifie d Evan [place] MD 03/25/2022 I50.9 Heart failure, unspecified S sandee Stovall MD 03/25/2022 N17.9 Acute kidney failure, unspec ified Evan [place]ov[place] MD 03/23/2022 E87.1 Hypo-osmolality and hyponatr nain Stovall MD 03/23/2022 E86.9 Volume depletion, unspecifie d Evan Stovall MD 03/23/2022 I50.9 Heart failure, unspecified S sandee Stovall MD 03/23/2022 N17.9 Acute kidney failure, unspec ified Evan Stovall MD
--- OUTSIDE RECORDS SUMMARY | 2024-09-30 10:41 | XMS_ITS | Encounter Summary ---
Author Organization [facility] tem Address [facility]-[id number] [address] [place] [address] Care Team Providers Care Grapple Yarder Operator Name Role Phone Tika Humphries MD Primary Care Provider [phone]- [phone] Encounter Details Date Type Department Care Team (Late st Contact Info) Description 10/20/2023 Orders Only [facility] [address] [place] [address] External, Scanning Provider Social History [...] 1:00 PM EDT Hospital Encounter [facility] [address] [place] [address] Lois Madison MD [address] [place] [address] Nonischemic cardiomyopathy (CMS-HCC) 11/25/2024 1:00 PM EDT - 11/25/2024 3:00 PM EDT Surgery [facility] [address] [facility] [place] [address] Lois Madison MD [address] [place] [address] BIV ICD gen change - BSI 01/06/2025 10:10 AM EDT Ophthalmology Imaging [facility] [address] [place] [address] 01/06/2025 10:20 AM EDT Office Visit [facility] [address] [place] [address] Daniel Ferrer, OD [address] [place] [address] 02/13/2025 10:30 AM EDT Clinical Support [facility] [address] [place] [address] 02/13/2025 11:15 AM EDT Office Visit [facility] [address] [facility] [place] [address] Rambo Panchal DO [address] [facility] [place] [address] documented as of this encounter Procedures Procedure Name Priority Date/Time Associated Diagnosis Comments MULTIPLE LABS Routine 10/12/2023 12:33 PM EDT ECG 12-LEAD Routine 09/08/2023 12:28 PM EDT documented in this encounter Results * Multiple labs (10/12/2023 12:33 PM EDT) us Scanning Provider External [place] IMAGING Final Result Performing Organization Address City/[facility]/ZIP Co de Phone Number MANUALLY TRANSCRIBED RESULTS * ECG 12 lead (09/08/2023 12:28 PM EDT) us Scanning Provider External ECG ORDERABLES Final Result Performing Organization Address [facility] Co de Phone Number MANUALLY TRANSCRIBED RESULTS documented in this encounter Visit Diagnoses Not on filedocumented in this encounter Care Teams Grapple Yarder Operator Relationship Specialty Start Date End Date Tika Humphries MD [address] [place] [address] PCP - General 01/09/14 documented as of this encounter
--- OUTSIDE RECORDS SUMMARY | 2024-09-30 10:41 | XMS_ITS | Clinical Summary ---
Author Organization [facility] Address [address] [place] [address] Care Team Providers Care Sales Host Name Role Phone Tika Humphries MD Primary Care Provider [phone] Allergies Active Allergy Reactions Criticality Noted Date Comments Cefaclor Rash,Swelling 01/08/2020 And redness Medications acetaminophen (TYLENOL) 325 mg tablet Take 650 mg by mouth every 6 hours as needed. Active allopurinol (ZYLOPRIM) 100 mg tablet TAKE 1 TABLET BY MOUTH ONCE DAILY FOR 90 DAYS 12/24/2019 Active carvedilol (COREG) 6.25 mg tablet Take 6.25 mg by mouth twice daily with meals. 12/08/2019 Active cholecalciferol (VITAMIN D3) 50 mcg (2,000 unit) tablet Take 2,000 Units by mouth once daily. Active dorzolamide-kortney lol (COSOPT) 22.3-6.8 mg/mL ophthalmic solution Use 1 Drop in both eyes twice daily. Active fluvoxaMINE (LUVOX) 100 mg tablet Take 100 mg by mouth twice daily. 12/16/2019 Active furosemide (LASIX) 40 mg tablet Take 10 mg by mouth as needed. Active levothyroxine (SYNTHROID) 50 mcg tablet Take 50 mcg by mouth every morning. Take On an Empty Stomach 11/19/2019 Active loratadine (CLARITIN) 10 mg tablet Take 10 mg by mouth at bedtime as needed. Active losartan (COZAAR) 25 mg tablet TAKE 1 TABLET BY MOUTH ONCE DAILY FOR 90 DAYS 12/09/2019 Active Magnesium Oxide 500 mg tab Take 500 mg by mouth once daily. Active therapeutic multivitamin-min erals (THERA-M PLUS) 9 mg iron-400 mcg tablet Take 1 tablet by mouth once daily. Active rivaroxaban (XARELTO) 20 mg tablet TAKE 1 TABLET BY MOUTH ONCE DAILY WITH SUPPER 12/17/2019 Active simvastatin (ZOCOR) 40 mg tablet Take 40 mg by mouth daily at bedtime. 11/19/2019 Active spironolactone (ALDACTONE) 25 mg tablet TAKE 1 2 (ONE HALF) TABLET BY MOUTH ONCE DAILY FOR 90 DAYS 10/11/2019 Active Lactobacillus acidophilus (PROBIOTIC ORAL) Take by mouth. Active flaxseed oil (OMEGA 3 ORAL) Take by mouth. Active lactase (ULTRA DAIRY DIGESTIVE ORAL) Take by mouth. Active Omeprazole Magnesium (PRILOSEC OTC) 20 mg tablet Take 1 tablet by mouth once daily. 30 tablet 3 07/28/2020 Active esomeprazole (NEXIUM 24HR) 20 mg capsule Take 20 mg by mouth DAILY (6 AM). Active calcium carbonate (CALCIUM 600 ORAL) Take 1 Dose by mouth once daily. Active Active Problems Problem Noted Date Diagnosed Date Primary osteoarthritis of both knees 07/03/2020 Dysphagia Assessment & Plan (12/02/2020 12:15 PM EDT): Assessment: will have EGD CHF (congestive heart failure) Assessment & Plan (12/02/2020 12:16 PM EDT): Assessment: has had in the past, monitored per PCP Hypothyroidism Assessment & Plan (12/02/2020 12:15 PM EDT): Assessment: takes med, monitored per PCP Neuropathy Assessment & Plan (12/02/2020 12:14 PM EDT): Assessment: monitored per PCP ICD (implantable cardioverter-defibrillator) in place Assessment & Plan (12/02/2020 12:15 PM EDT): Assessment: has [employer] [facility] ICD, most recent check scanned in [facility] from 10/25/20 Chronic gout of multiple sites Assessment & Plan (12/02/2020 12:16 PM EDT): Assessment: takes med,monitored per PCP Bilateral malignant neoplasm of overlapping sites of breast in female Overview (12/02/2020): right Assessment & Plan (12/02/2020 12:17 PM EDT): Assessment: had Right Mastectomy in 1997 and radiation and chemotherapy, no longer a problem Other hyperlipidemia Assessment & Plan (12/02/2020 12:14 PM EDT): Assessment: takes med , stable Nonischemic congestive cardiomyopathy Assessment & Plan (12/02/2020 12:14 PM EDT): Assessment: monitored per PCP Family History Medical History Relation Comments [place] Father Diabetes Mother Hypertension Mother Cancer Sister Relation Status Comments Father Mother Sister Social History Tobacco Use Types Packs/Day Years Used Date Smoking Tobacco: Never Smokeless Tobacco: Never Alcohol Use Standard Drinks/Week Comments Yes 0 (1 standard drink = 0.6 oz pur e alcohol) OCC Area Deprivation Index Answer Date Artur rded National Score (1-100), lower number is lower ri sk Not on file 04/07/2020 State Score (1-10), lower number is lower risk N ot on file 04/07/2020 Data from: https://www.neighborhoodatlas.medicine.[facility].edu/. Last address used for calculation Not on file 04/07/2020 Comments No Sex and Gender Information Value Date Recorded Sex Assigned at Not on file Legal Sex Female 1:12 PM EDT Gender Identity Not on file Sexual Orientation Not on file Last Filed Vital Signs Vital Sign Reading Time Taken Comments Blood Pressure 149/69 12/03/2020 10:40 AM EDT Pulse 64 12/03/2020 10:40 AM EDT Temperature 36.9 C (98.4 F) 12/03/2020 10:17 AM EDT Respiratory Rate 16 12/03/2020 10:4 0 AM EDT Oxygen Saturation 95% 12/03/2020 10: 40 AM EDT Inhaled Oxygen Concentration - - Weight 103.5 kg (228 lb 3.2 oz) 021 10:25 AM EDT Height 174 cm (5' 8.5 ) 12/02/2020 10:2 5 AM EDT Body Mass Index 34.19 12/02/2020 10:25 AM EDT Plan of Treatment Health Maintenance Due Date Last Done Comments Anxiety Screening 1963 Depression Screening 1963 Hepatitis C Screening 1963 DTaP,Tdap,Td Vaccine (1 - Tdap) 04/14/2012 2 Bone Density Screening 2012 RSV Vaccine (1 - 1-dose 75+ series) 2022 Diabetes Screening 12/03/2023 12/02/2020, 10/09/2020 Covid-19 Vaccine (3 - 2023-2 5 season) 2023 07/23/2020, 06/27/2020 Advance Directive Discussion 05/01/2024 Influenza Vaccine (Season Ended) 2024 02/27/2019, 02/13/2018, 02/07/2017, Additional history exists Shingrix Vaccine Completed 11/30/2017, 08/15/2017 Pneumococcal Vaccine: 50+ Completed 2018, 08/09/2016, 08/15/2014 Procedures Procedure Name Priority Date/Time Associated Diagnosis Comments BASIC METABOLIC PANEL Routine 12/02/2020 11:19 AM EDT Pre-op evaluation Dysphagia, unspecified type Congestive heart failure, unspecified HF chronicity, unspecified heart failure type (HCC) Hypothyroidism, unspecified type Neuropathy ICD (implantable cardioverter-defibrill ator) in place Chronic gout of multiple sites, unspecified cause Bilateral malignant neoplasm of overlapping sites of breast in female, unspecified estrogen receptor status (HCC) Other hyperlipidemia Nonischemic congestive cardiomyopathy (HCC) from Last 3 Months or Most Recently Relevant to Health Maintenance Results * (ABNORMAL) BASIC METABOLIC PNL (12/02/2020 11:19 AM EDT) [facility] Glucose 85 74 - 99 mg/dL 12/02/2020 11:52 AM EDT [facility] Comment: The [place] Diabetes Association (ADA) provides guidance for cutoff [...] Standards of Medical Care in Diabetes 2016, [place] [employer] Association. Diabetes Care. 2016.39(Suppl 1). BUN 24(H) 7 - 21 mg/dL 12/02/2020 11:52 AM EDT [facility] Creatinine 0.88 0.58 - 0.96 mg/dL 12/02/2020 11:52 AM EDT [facility] Sodium 138 136 - 144 mmol/L 12/02/2020 11:52 AM EDT [facility] Potassium 4.8 3.7 - 5.1 mmol/L 12/02/2020 11:52 AM EDT [facility] Chloride 103 97 - 105 mmol/L 12/02/2020 11:52 AM EDT [facility] CO2 25 22 - 30 mmol/L 12/02/2020 11:52 AM EDT [facility] Anion Gap 10 9 - 18 mmol/L 12/02/2020 11:52 AM EDT [facility] Calcium 10.2 8.5 - 10.2 mg/dL 12/02/2020 11:52 AM EDT [facility] eGFR- >60 12/02/2020 11:52 AM EDT [facility] eGFR-All Other Races >60 . 12/02/2020 11:52 AM EDT [facility] Comment: eGFR (Estimated GFR) Units of measure: [...] eGFR may not accurately reflect actual GFR. Blood BLOOD SPECIMEN / Unknown 12/02/2020 11:19 AM EDT 12/02/2020 11:52 AM EDT us Sherin Ham BOX REPAIRER.[employer] Final Result [facility] [address] [place] [address] [facility] [address] [place] [address] from Last 3 Months or Most Recently Relevant to Health [place] [address] MEDICARE [facility] MEDICARE SUPPLEMENT Advance Directives Documents on File Type Date Recorded Patient Coke Drawer Expl anation Advance Directive(s) 12/03/2020 9:02 AM Care Teams Sales Host Relationship Specialty Start Date End Date Tika Humphries MD [address] [place] [address] PCP - General Internal Medicine 11/16/20
--- OUTSIDE RECORDS SUMMARY | 2024-09-30 10:41 | XMS_ITS | Encounter Summary ---
Author Organization [employer] Address [id number] [address] [place] [address] Care Team Providers Care Analytical Sciences Director Name Role Phone Tika Humphries MD Primary Care Provider [phone] Reason for Visit * Reason Comments Med Refill Encounter Details Date Type Department Care Team (Late st Contact Info) Description 04/02/2023 Refill [facility] [address] [place] [phone] Janina Adams, PA-C [address] [facility] prov left org 07/30/23 [place] [address] Med Refill Social History Tobacco Use Types Packs/Day Years [...] encounter Miscellaneous Notes * Telephone Encounter - Ashley Chairez RN - 04/02/2023 3:42 AM EST Please sign and route if agreeable. Labs pended for further refills. Letter mailed. Thank you MATTI 01/19/23 CBC 12/06/21 CMP 12/06/21 BMP 01/06/22 documented in this encounter Plan of Treatment Upcoming Encounters Date Type Department Care Team (Latest Contact Info) Description 11/25/2024 1:00 PM EDT Hospital Encounter [facility] [place] [address] [place] [phone] Lois Madison MD [address] [place] [address] Nonischemic cardiomyopathy ([facility]) 11/25/2024 1:00 PM EDT - 11/25/2024 3:00 PM EDT Surgery [facility] [place] [address] [place] [phone] Lois Madison MD [address] [place] [address] BIV ICD gen change - BSI 01/06/2025 10:10 AM EDT Ophthalmology Imaging [facility] [address] [place] [phone] 01/06/2025 10:20 AM EDT Office Visit [facility] [address] [place] [phone] Daniel Ferrer, ALON [address] [place] [address] 02/13/2025 10:30 AM EDT Clinical Support [facility] [address] [place] [address] 02/13/2025 11:15 AM EDT Office Visit [facility] [address] [place] [phone] Rambo Panchal DO [address] [place] [address] documented as of this encounter Results * Lipid profile (04/13/2023 10:23 AM EST) [facility] Cholesterol 160 150 - 200 mg/dL 04/13/2023 1:48 PM [facility] Triglycerides 93 27 - 150 mg/dL 04/13/2023 1:48 PM [facility] HDL Cholesterol 72 >39 mg/dL 1:48 PM [facility] Comment: HDL <40 mg/dL - High Risk HDL > or = 40mg/dL- Desirable HDL >60 mg/dL - Negative Risk VLDL 19 0 - 30 mg/dL 04/13/2023 1:48 PM [facility] LDL (calc) 69 <130 mg/dL 04/13/2023 1:48 PM [facility] Comment: LDL <100 mg/dL - Desirable LDL >160 mg/dL - High Risk Cholesterol:HDL Ratio 2.2 1.0 - 5.0 04/13/2023 1:48 PM [facility] PLASMA 04/13/2023 10:2 3 AM EST 04/13/2023 10:24 AM EST Myron Beltran CATTLE EXAMINER-SLIDE FASTENERS INSPECTOR LAB BLOOD ORDERABLES Final Result [facility] [address] [place] [address] * Magnesium (04/13/2023 10:23 AM EST) Pathologist [facility] Magnesium 1.8 1.8 - 2.6 mg/dL 04/13/2023 1:48 PM [facility] PLASMA 04/13/2023 10:2 3 AM EST 04/13/2023 10:24 AM EST Myron Beltran CATTLE EXAMINER-SLIDE FASTENERS INSPECTOR LAB BLOOD ORDERABLES Final Result Performing Organization Address City/[facility]/ZIP Co de Phone Number [facility] [address] [place] [address] * (ABNORMAL) Comprehensive metabolic panel (04/13/2023 10:23 AM EST) Pathologist [facility] Sodium 142 134 - 146 mmol/L 04/13/2023 1:48 PM [facility] Potassium, Bld 4.5 3.5 - 5.0 mmol/L 04/13/2023 1:48 PM [facility] Chloride 105 98 - 109 mmol/L 04/13/2023 1:48 PM [facility] CO2 28 22 - 32 mmol/L 04/13/2023 1:48 PM [facility] Anion gap 9 5 - 15 mmol/L 04/13/2023 1:48 PM [facility] BUN 18 5 - 27 mg/dL 04/13/2023 1:48 PM [facility] Creatinine 1.02(H) 0.40 - 1.00 mg/dL 04/13/2023 1:48 PM [facility] Comment:METHOD TRACEABLE TO IDMS STANDARD Glucose 88 65 - 99 mg/dL 04/13/2023 1:48 PM [facility] Calcium 9.6 8.5 - 10.5 mg/dL 04/13/2023 1:48 PM [facility] Total Protein 7.4 6.0 - 8.0 g/dL 04/13/2023 1:48 PM [facility] Albumin 4.0 3.2 - 5.3 g/dL 04/13/2023 1:48 PM [facility] Alkaline Phosphatase 93 39 - 130 U/L 04/13/2023 1:48 PM [facility] AST 21 0 - 41 U/L 04/13/2023 1:48 PM [facility] ALT 23 0 - 31 U/L 04/13/2023 1:48 PM [facility] Total bilirubin 0.4 0.3 - 1.2 mg/dL 04/13/2023 1:48 PM [facility] eGFR (CKD-EPI)non-rac e dependent 57(L) >59 ml/min/1.7 3sq.m 04/13/2023 1:48 PM [facility] Comment: Reported eGFR is based on the CKD-EPI 2020 equation that does not use a race coefficient. PLASMA 04/13/2023 10:2 3 AM EST 04/13/2023 10:24 AM EST us Myron Beltran CATTLE EXAMINER-SLIDE FASTENERS INSPECTOR LAB BLOOD ORDERABLES Final Result [facility] [address] [place] [address] * CBC without diff (04/13/2023 10:23 AM EST) White Blood Cells 6.3 4.0 - 11.0 X10E9/L 04/13/2023 1:12 PM [facility] RBC count 4.25 3.80 - 5.20 X10E12/L 04/13/2023 1:12 PM [facility] Hemoglobin 12.8 11.7 - 15.5 g/dL 04/13/2023 1:12 PM [facility] Hematocrit 38.5 35 - 47 % 04/13/2023 1:12 PM [facility] MCV 90 80 - 100 fL 04/13/2023 1:12 PM EST [facility] MCH 30.2 27 - 34 pg 04/13/2023 1:12 PM [facility] MCHC 33.4 32 - 36 g/dL 04/13/2023 1:12 PM [facility] RDW 13.4 11.5 - 15.0 % 04/13/2023 1:12 PM [facility] Platelets 417 150 - 450 X10E9/L 04/13/2023 1:12 PM [facility] MPV 8.2 7 - 12 fL 04/13/2023 1:12 PM [facility] Blood / Unknown 04/13/2023 1 0:23 AM EST 04/13/2023 10:24 AM EST us Myron Beltran CATTLE EXAMINER-SLIDE FASTENERS INSPECTOR LAB BLOOD ORDERABLES Final Result [facility] [address] [place] [address] documented in this encounter Visit Diagnoses Diagnosis Medication management- Primary Nonischemic cardiomyopathy (CMS-HCC)- Primary Other primary cardiomyopathies Nonischemic cardiomyopathy (CMS-HCC) Other primary cardiomyopathies documented in this encounter Care Teams Analytical Sciences Director Relationship Specialty Start Date End Date Tika Humphries MD [address] [place] [address] PCP - General 01/09/14 documented as of this encounter
--- OUTSIDE RECORDS SUMMARY | 2024-09-30 10:41 | XMS_ITS | Encounter Summary ---
Author Organization [facility] tem Address [id number] [address] [place] [address] Care Team Providers Care Finishing Range Supervisor Name Role Phone Tika Humphries MD Primary Care Provider Encounter Details Date Type Department Care Team (Late st Contact Info) Description 07/06/2022 Orders Only [facility] [address] [place] [phone] External, Scanning Provider Social History Tobacco [...] Description 11/25/2024 1:00 PM EDT Hospital Encounter [facility] [address] [place] [phone] Lois Madison MD [address] [place] [address] Nonischemic cardiomyopathy (CMS-HCC) 11/25/2024 1:00 PM EDT - 11/25/2024 3:00 PM EDT Surgery [facility] [address] [place] [address] Lois Madison MD [address] [place] [address] BIV ICD gen change - BSI 01/06/2025 10:10 AM EDT Ophthalmology Imaging [facility] [address] [place] [phone] 01/06/2025 10:20 AM EDT Office Visit [facility] [address] [place] [address] Daniel Ferrer, OD [address] [place] [address] 02/13/2025 10:30 AM EDT Clinical Support [facility] [address] [place] [phone] 02/13/2025 11:15 AM EDT Office Visit [facility] [address] [place] [address] Rambo Panchal, [address] [facility] [place] [address] documented as of this encounter Procedures Procedure Name Priority Date/Time Associated Diagnosis Comments B-TYPE NATRIURETIC PEPTIDE Routine 06/30/2022 documented in this encounter Results * B-type natriuretic peptide (06/30/2022) us Scanning Provider External LAB BLOOD ORDERABLES Edited Result - Final MANUALLY TRANSCRIBED RESULTS documented in this encounter Visit Diagnoses Not on filedocumented in this encounter Care Teams Finishing Range Supervisor Relationship Specialty Start Date End Date Tika Humphries MD [address] [place] [address] PCP - General 01/09/14 documented as of this encounter
--- OUTSIDE RECORDS SUMMARY | 2024-09-30 10:41 | XMS_ITS | Encounter Summary ---
Author Organization [facility] Address [address] [place] [address] Care Team Providers Care Mentally Impaired Teacher Name Role Phone Tika Humphries MD Primary Care Provider [phone] Encounter Details Date Type Department Care Team (Late st Contact Info) Description 01/04/2024 Clinisync Result Encounter [facility] External Department Unsolicited Mary Pina NP Social History Tobacco Use Types Packs/Day Years Used Date Smoking Tobacco: Never Alcohol Use Standard Drinks/Week Comments [...] as of this encounter Plan of Treatment Not on file documented as of this encounter Procedures Procedure Name Priority Date/Time Associated Diagnosis Comments CT LUMBAR SPINE W AND WO IV CONTRAST 01/04/2024 12:10 AM EDT documented in this encounter Results * CT lumbar spine w and wo IV contrast (01/04/2024 12:10 AM EDT) Anatomical Region Laterality Modality Spine, L-spine Computed Tomogra phy 01/04/2024 12:1 0 AM EDT Narrative 01/04/2024 12:13 AM EDT [address] [address] [address] Scan Report Signed Patient: RIMMA FELIX MR#: [id number] : 1945 Acct:[id number] Age/Sex: 78 / F ADM Date: 01/03/24 Loc: LAB Attending Dr: Mary Pina NP Ordering Physician: Mary Pina NP Date of Service: 01/03/24 Procedure(s): CT lumbar spine wo/w con Accession Number(s): [id number] cc: Physician,Non-Staff M.D. 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 TECHNIQUE: Axial CT scans of the lumbar spine were obtained without and with IV contrast administration. MPR images were obtained. Dose reduction techniques were achieved by using: automated exposure control and/or adjustment of mA and /or kV according to patient size and/or use of iterative reconstruction technique.. FINDINGS: Lumbar levoscoliosis without segmental anomaly is unchanged, measuring 23 degrees. Decreased disc height with vacuum disc phenomena from L2 to S1 is secondary to disc degeneration. Mild discovertebral complexes from L2 to S1 without central spinal stenosis. Mild to moderate facet arthropathy from L3 to S1. No significant neural foraminal stenosis. Cerebral small radiolucencies in from L2 to L5 vertebral bodies are unchanged. Some of these radiolucencies have fatty density, likely representing focal areas of fatty marrow. A benign hemangioma in L3 vertebral body with coarse trabeculae is unchanged. SI joints appear unremarkable. The visualized retroperitoneum shows no adenopathy. CT/CT lumbar spine wo/w con IMPRESSION: Lumbar levoscoliosis without segmental anomaly is unchanged, measuring 23 degrees. Discovertebral degenerative changes from L2 to S1 without central spinal stenosis or significant neural foraminal stenosis. Mild to moderate facet arthropathy from L3 to S1. Several small radiolucencies from L2 to L5 are unchanged. I am doubtful that these radiolucencies result from metastatic disease. Electronically authenticated by: GERSON BRIGHT Date: 01/04/2024 00:10 Dictated By: Gerson Bright M.D. Signed By: 01/04/2412 DD/ TD/TT: Cd Mixer: Procedure Note Radiology, Radiologist, MD - 01/04/2024 [place] [address] CT Scan Report Signed Patient: RIMMA FELIXMR#: [id number] : 1945cct:[id number] Age/Sex: 78 / FADM Date: 01/03/24 Loc: LAB Attending Dr: Mary Pina STREET LIGHT REPAIRER HELPER Ordering Physician: Mary Pina NP Date of Service: 01/03/24 Procedure(s): CT lumbar spine wo/w con Accession Number(s): [id number] cc: Physician,Non-Staff [place] [id number] Patient Name: RIMMA FELIX MRN: [id number] date: 1945 Sex: F Assigned Patient Location: LAB Current Patient Location: Accession/Order Number: [id number] Exam Date: 01/03/2024 10:15 Report Date: 01/04/2024 00:10 At the request of: MARY PINA Procedure: CT lumbar spine wo/w con EXAM: CT lumbar spine wo/w con HISTORY: LUMBAR RADICULOPATHY, METASTASIS TO SPINAL COLUMN COMPARISON: 08/11/2021. TECHNIQUE: Axial CT scans of the lumbar spine were obtained without andwith IV contrast administration. MPR images were obtained. Dose reductiontechniques were achieved by using: automated exposure control and/or adjustment of mAand /or kV according to patient size and/or use of iterative reconstruction technique.. FINDINGS: Lumbar levoscoliosis without segmental anomaly is unchanged, measuring 23 degrees. Decreased disc height with vacuum disc phenomenafrom L2 to S1 is secondary to disc degeneration. Mild discovertebral complexesfrom L2 to S1 without central spinal stenosis. Mild to moderate facet arthropathyfrom L3 to S1. No significant neural foraminal stenosis. Cerebral small radiolucencies in from L2 to L5 vertebral bodies areunchanged. Some of these radiolucencies have fatty density, likely representing focal areas of fatty marrow. A benign hemangioma in L3 vertebral body withcoarse trabeculae is unchanged. SI joints appear unremarkable. The visualized retroperitoneum shows no adenopathy. CT/CT lumbar spine wo/w con IMPRESSION: Lumbar levoscoliosis without segmental anomaly is unchanged, measuring 23 degrees. Discovertebral degenerative changes from L2 to S1 without central spinal stenosis or significant neural foraminal stenosis. Mild to moderate facet arthropathy from L3 to S1. Several small radiolucencies from L2 to L5 are unchanged. I am doubtfulthat these radiolucencies result from metastatic disease. Electronically authenticated by: GERSON BRIGHT Date: 01/04/2024 00:10 Dictated By: Gerson Bright M.D. Signed By:01/04/24 0013 DD/ 0010 TD/TT: Cd Mixer: Mary Pina NP IMBaljeet CT PROCEDURES Final Result documented in this encounter Visit Diagnoses Not on filedocumented in this encounter Care Teams Mentally Impaired Teacher Relationship Specialty Start Date End Date Tika Humphries MD [address] [place] [phone] PCP - General Internal Medicine 12/26/23 documented as of this encounter
--- OUTSIDE RECORDS SUMMARY | 2024-09-30 10:41 | XMS_ITS | Encounter Summary ---
Author Organization [facility] Address [address] [place] [address] Care Team Providers Care Craft Recruiter Name Role Phone Tika Humphries MD Primary Care Provider [phone] Reason for Referral * Other (Routine) - Closed Specialty Diagnoses / Procedures Referred By Contac t Referred To Contact Diagnoses CHF (congestive heart failure), NYHA class I, acute on chronic, combined (HCC) Procedures ECHO 2D WO Color Doppler Complete Rambo Panchal DO [address] [place] [facility] [place] [address] Phone: tel: fax: [facility] [address] [place] [address] Phone: tel: Referral ID Status Reason Start Date Expiration Date Visits Re quested Visits Authorized [id number] Closed 12/30/2021 12/30/2022 1 1 Encounter Details Date Type Department Care Team (Late st Contact Info) Description 12/30/2021 Transcribe Orders [facility] [address] [place] [id number] Rambo Panchal DO [address] [facility] [place], [place] [id number] CHF (congestive heart failure), NYHA class I, acute on chronic, combined (HCC) (Primary Dx) Social History Tobacco Use Types Packs/Day Years Used Date Smoking Tobacco: Never Assessed Comments Unknown Sex and Gender Information Value Date Recorded Sex Assigned at Not on file Legal Sex Female 6:30 PM EST Gender Identity Not on file Sexual Orientation Not on file documented as of this encounter Plan of Treatment Scheduled Orders Name Type Priority Associated Diagnoses Orde r Schedule ECHO 2D WO Color Doppler Complete Echocardiography Routine Chf (Congestive Heart Failure), Nyha Class I, Acute On Chronic, Combined (Hcc) Expected: 12/30/2021, Expires: 12/30/2022 documented as of this encounter Visit Diagnoses Diagnosis CHF (congestive heart failure), NYHA class I, acute on chronic, combined (HCC)- Primary documented in this encounter Care Teams Craft Recruiter Relationship Specialty Start Date End Date Tika Humphries MD PCP - General Internal Medicine 03/17/17 documented as of this encounter
--- OUTSIDE RECORDS SUMMARY | 2024-09-30 10:41 | XMS_ITS | Clinical Summary ---
Author Organization [facility] Address [address] [place] [address] Care Team Providers Care Scientific Programmer Name Role Phone Tika Humphries MD Primary Care Provider [phone] Allergies Active Allergy Reactions Criticality Noted Date Comments Cefaclor Itching,Rash Low 03/27/2017 Medications rivaroxaban (XARELTO) 20 MG TABS tablet Take 1 tablet by mouth Active spironolactone (ALDACTONE) 25 MG tabletIndication s:1/2pill daily. Take 1 tablet by mouth daily Indications: 1/2pill daily. Active carvedilol (COREG) 12.5 MG tablet Take 1 tablet by mouth 2 times daily (with meals) Active losartan (COZAAR) 25 MG tabletIndication s:1/2 pill daily Take 1 tablet by mouth daily Indications: 1/2 pill daily Active furosemide (LASIX) 40 MG tablet Take 10 mg by mouth as needed Active fluvoxaMINE (LUVOX CR) 100 MG CP24 extended release capsule Take 100 mg by mouth nightly Active Magnesium Oxide 500 MG CAPS Take by mouth Daily Active Multiple Vitamins-Mineral s (THERAPEUTIC MULTIVITAMIN-MIN ERALS) tablet Take 1 tablet by mouth daily Active omeprazole (PRILOSEC) 20 MG delayed release capsule Take 1 capsule by mouth daily Active levothyroxine (SYNTHROID) 50 MCG tablet Take 1 tablet by mouth Daily Active acetaminophen (TYLENOL) 325 MG tablet Take 2 tablets by mouth every 6 hours as needed for Pain Active Cholecalciferol (VITAMIN D3) 2000 units CAPS Take by mouth Active latanoprost (XALATAN) 0.005 % ophthalmic solutionIndicati ons:right eye 1 drop nightly Active simvastatin (ZOCOR) 40 MG tablet Take 1 tablet by mouth nightly Active allopurinol (ZYLOPRIM) 100 MG tablet Take 1 tablet by mouth daily Active Probiotic Product (PROBIOTIC COMPLEX ACIDOPHILUS PO) Take 1 capsule by mouth daily Active loratadine (CLARITIN) 10 MG tablet Take 1 tablet by mouth as needed Active ferrous sulfate (IRON 325) 325 (65 Fe) MG tablet Take 1 tablet by mouth daily (with breakfast) Active Family History Medical History Relation Name Comments Heart Disease Father High Cholesterol Father Stroke Father Heart Disease Mother Stroke Mother Cancer Sister lymphoma Relation Name Status Comments Father Mother Sister Social History Tobacco Use Types Packs/Day Years Used Date Smoking Tobacco: Never Smokeless Tobacco: Never Tobacco Cessation:Counseling Given: Not Answered Alcohol Use Standard Drinks/Week Comments Yes 1 (1 standard drink = 0.6 oz pur e alcohol) Interpersonal Safety Domain Source: IP Abuse Scr eening Answer Date Recorded Read-Only, Retired: Physical Abuse Denies 02/14/2023 Read-Only, Retired: Verbal Abuse Denies 02/14/2023 Read-Only, Retired: Emotional abuse Denies 02/14/2023 Read-Only, Retired: Financial Abuse Denies 02/14/2023 Read-Only, Retired: Sexual abuse Denies 02/14/2023 Comments No Sex and Gender Information Value Date Recorded Sex Assigned at Not on file Legal Sex Female 6:30 PM EST Gender Identity Not on file Sexual Orientation Not on file Last Filed Vital Signs Vital Sign Reading Time Taken Comments Blood Pressure 157/73 02/14/2023 11:15 AM EDT Pulse 68 02/14/2023 11:15 AM EDT Temperature 36 C (96.8 F) 02/14/2023 11:15 AM EDT Respiratory Rate 14 02/14/2023 11:1 5 AM EDT Oxygen Saturation 94% 02/14/2023 11: 15 AM EDT Inhaled Oxygen Concentration - - Weight 104.2 kg (229 lb 11.5 oz) 02/14/2023 8:03 AM EDT Height 175.3 cm (5' 9 ) 02/14/2023 8:03 AM EDT Body Mass Index 33.92 02/14/2023 8:03 AM EDT Plan of Treatment Health Maintenance Due Date Last Done Comments Lipids 1957 Depression Screen 1959 Hepatitis C screen 1965 DTaP/Tdap/Td vaccine (1 - Tdap) 04/14/2012 04/13/2012 Respiratory Syncytial Virus (RSV) or age 60 yrs+ (1 - 1-dose 75+ series) 2022 Annual Wellness Visit (Medicare) 03/27/2023 COVID-19 Vaccine ( - season) 2023 02/28/2021, 07/23/2020, 06/27/2020 Flu vaccine (Season Ended) 11/29/202402/10, 01/22/2021, 02/27/2019, Additional history exists DEXA (modify frequency per FRAX score) Completed 08/07/2014 Shingles vaccine Completed 11/30/2017, 08/15/2017 Pneumococcal 50+ years Vaccine Completed 08/17/2018, 08/09/2016, 08/15/2014 Colonoscopy Discontinued 02/14/2023, 03/27/2017 Colorectal Cancer Screen Discontinued FIT/FOBT: Average risk Discontinued Fecal-DNA (Cologuard): Average risk Discontinued Hepatitis A vaccine Aged Out No longe r eligible based on patient's age to complete this topic Hepatitis B vaccine Aged Out No longe r eligible based on patient's age to complete this topic Hib vaccine Aged Out No longer eligi ble based on patient's age to complete this topic Meningococcal (ACWY) vaccine Aged Out No longer eligible based on patient's age to complete this topic Meningococcal B vaccine Aged Out No l onger eligible based on patient's age to complete this topic Polio vaccine Aged Out No longer elig ible based on patient's age to complete this topic Sigmoidoscopy/CT colonography Discontinued Insurance MEDICARE [employer] Care Teams Scientific Programmer Relationship Specialty Start Date End Date Tika Humphries MD PCP - General Internal Medicine 03/17/17
--- OUTSIDE RECORDS SUMMARY | 2024-09-30 10:42 | XMS_ITS | Encounter Summary ---
Author Organization [facility] [employer] [facility] tem Address [id number] [address] [place] [address] Care Team Providers Care Pyrometer Temperature Regulator Name Role Phone Tika Humphries MD Primary Care Provider [phone] Encounter Details Date Type Department Care Team (Late st Contact Info) Description 08/12/2024 Orders Only [facility] [address] [place] [address] External, Scanning Provider Social History [...] Description 11/25/2024 1:00 PM EDT Hospital Encounter [facility] [address] [place] [phone] Lois Madison MD [address] [place] [address] Nonischemic cardiomyopathy ([facility]) 11/25/2024 1:00 PM EDT - 11/25/2024 3:00 PM EDT Surgery [facility] [address] [facility] [place] [phone] Lois Madison MD [address] [place] [address] BIV ICD gen change - BSI 01/06/2025 10:10 AM EDT Ophthalmology Imaging [facility] [address] [place] [phone] 01/06/2025 10:20 AM EDT Office Visit [facility] [address] [place] [phone] Daniel Ferrer, OD [address] [place] [address] 02/13/2025 10:30 AM EDT Clinical Support [facility] [address] [place] [address] [address] [place] [phone] 02/13/2025 11:15 AM EDT Office Visit [facility] [address] [place] [address] [address] [place] [phone] Rambo Panchal DO [address] [facility] [place] [address] documented as of this encounter Procedures Procedure Name Priority Date/Time Associated Diagnosis Comments MULTIPLE LABS Routine 06/14/2024 2:26 PM EST documented in this encounter Results * Multiple labs (06/14/2024 2:26 PM EST) us Scanning Provider External [facility] Final Result MANUALLY TRANSCRIBED RESULTS documented in this encounter Visit Diagnoses Not on filedocumented in this encounter Care Teams Pyrometer Temperature Regulator Relationship Specialty Start Date End Date Tika Humphries MD [address] [place] [id number] PCP - General 01/09/14 documented as of this encounter
--- OUTSIDE RECORDS SUMMARY | 2024-09-30 10:42 | XMS_ITS | Encounter Summary ---
Author Organization [employer] tem Address [facility] [id number] [address] [place] [address] Care Team Providers Care Radiation / Chemistry Technician Name Role Phone Tika Humphries MD Primary Care Provider [phone]- [phone] Reason for Visit * Reason Onset Date Comments PRE OP INSTRUCTIONS - BIV ICD gen change 025 Encounter Details Date Type Department Care Team (Late st Contact Info) Description 09/30/2024 Telephone [facility] [address] [place] [phone] Stephanie Kruger LPN PRE OP INSTRUCTIONS - BIV ICD gen change Social History Tobacco Use Types Packs/Day Years [...] encounter Miscellaneous Notes * Telephone Encounter - Stephanie Kruger LPN - 09/30/2024 8:45 AM EDT Images from the original note were not included. [facility]: Pacemaker/ICD Procedures YOUR PROCEDURE: ICD replacement YOUR DOCTOR: Dr. Lois Madison DATE/TIME OF YOUR PROCEDURE: Saturday 11/25 @ 1pm - ARRIVE AT 1130am DATES/TIMES ARE SUBJECT TO CHANGE, PLEASE SEE BELOW LOCATION OF YOUR PROCEDURE: [address] [address] Arrive to Entrance C, check in at the registration desk Please see the map on the last page for directions PRE OP REQUIREMENTS BELOW MUST BE COMPLETED PRIOR TO YOUR PROCEDURE OR IT MAY RESULT IN A DELAY OR CANCELLATION OF YOUR PROCEDURE PRE OP TESTING: NONE PRE OP LABS: You MUST complete your labs before your procedure. NONE FOR WARFARIN/COUMADIN PATIENTS: N/A FASTING: NO FOOD OR DRINK AFTER MIDNIGHT, night before procedure. You may take your medications as directed with sips of water. MEDICATIONS: Jardiance (empagliflozin) HOLD for 3 days prior - DO NOT TAKE ON OR AFTER 11/22 Xarelto HOLD for 2 days - DO NOT TAKE ON OR AFTER 11/23 If you were instructed to hold medications, you may take all your other medications as prescribed with sips of water. We recommend holding any over the counter supplements or vitamins the morning of your procedure. If you are started on any of these GLP-1/SGLT-2 medications after your procedure has been scheduled, call our office IMMEDIATELY: Jardiance (empaglifloxin), Farxiga (dapaglifloxin), Invokana (canaglifloxin), Steglatro (ertuglifloxin), Brenzavvy (bexaglifloxin), Inpefa (sotagliflozin), Byetta/Bydureon (exenatide), Victoza/saxenda (liraglutide), Soliqua (lixisenatide), Trulicity (dulaglutide), Ozempic, Wegovy, Rybelsus (semaglutide), Mounjaro, Zepbound (tirzepatide) IMPORTANT INFORMATION PLEASE BE ADVISED! Dates and times of procedures are subject to change, at times due to emergencies with the hospital or physician. You will be notified as soon as possible if/when these changes may occur by the nurse at the office The automated [employer] messages about your procedure can be incorrect. Please do NOT follow any automated [employer] messages as these can provide incorrect information about your procedure time, arrivaltime or pre op instructions. Please follow the instructions provided by the nurse in the office at the time of your visit, in the mail or through a separate [employer] message labeled pre-op instructions . If you are unsure, please call the Surgery office [phone] SURGERY SOAP: Use a surgery grade or antibacterial soap the night before or morning of your procedure, instead ofyour normal soap/body wash. You can find most surgery grade or antibacterial soaps at your local pharmacy, drug or grocery store, usually in the First Aid section. Use the soap from the neck down, all over your body. It is ok to use your normal soap on your face and shampoo for your hair. After you wash with the surgery soap, do NOT put anything else on your skin. This includes, any other soaps, lotions, creams, powders, sprays, deodorant and makeup. Wear clean clothing after using the surgery soap. WHAT TO BRING WITH YOU TO THE HOSPITAL: Bring your photo ID, insurance card and a current list of all your medications (including over the counter medications, vitamins and supplements) There may be a chance you will have to stay overnight. Bring with you an overnight bag with a change of clothes, ALL of your prescription medications in their original containers from the pharmacy and any medical equipment you may need during your stay. You MUST have a tow driver to take you home after your procedure. You MAY NOT use a driving service (Taxi, Uber, Lyft, etc) and must be driven home by a family member or friend. You may have up to TWO visitors for your procedure CALL THE SURGERY OFFICE AT [phone] IMMEDIATELY IF: You have any illness, infection or tested positive for COVID in the last 5 days. You are unable to come to your procedure and need to cancel or reschedule, please provide at least a 24 business hour notice Follow your blood thinner instructions as provided above. You may have your procedure cancelled or delayed if you do not follow these instructions, if you are unsure call the EP surgery office and spoke with the nurse YOU HAVE STARTED ANY NEW MEDICATIONS AFTER YOUR PROCEDURE HAS BEEN SCHEDULED If you had an allergy to contrast dye and it was NOT addressed during your office visit. You did not complete your required pre op testing, pre op labs or follow the medication instructions as listed above. This may result in a delay or cancellation of your procedure POST OP - AFTER YOUR PROCEDURE: You MUST have a tow driver to drive you home after your procedure, even if you stay overnight You will have an incision(s), follow the instructions provided by the hospital at your discharge onhow to properly care for your incision and when to remove your dressing. If you are unsure or were not instructed, ask the post op staff at the hospital or call the [facility] office at [phone], option 7, Nurses Inspect your incisions every day. Call immediately if you have any swelling, redness, bumps, drainage, your skin around your incision feels warm/hot or if you have a fever. ACTIVITY RESTRICTIONS: NO DRIVING FOR 24 HOURS AFTER YOUR PROCEDURE Do NOT shower or get your incision wet for at least 5 days, or otherwise instructed by your doctor.Do not submerge underwater (bath tubs, swimming, water therapy or hot tub) until your incision has fully healed. Do not lift anything heavier than 10 pounds or do any strenuous activity for a minimum of 1 week. If you have a new device implanted or a change to your wire (lead) you will have additional arm restrictions per your doctor. You may not raise your arm above your head or lift more than 10 pounds for up to 6 weeks (or per your doctor). If you are unsure if this applies to your procedure, please ask your EP surgery nurse. Call your doctor if you have any signs of illness (fever 100 degrees or higher, chills, shivering, nausea, vomiting, discharge from your incision. If you hear any beeping sounds or feel vibrations or have questions about your DEVICE, call the Device Clinic at [phone] FOLLOW UP APPOINTMENT: You will have follow up appointments after your procedure. You will have a follow up to assess yourincision as well as check the settings of your device and may have additional follow ups post op. You will have these appointments scheduled at your office visit or with the nurse when you are scheduled. If any of your follow up appointments have NOT been scheduled, call [phone] and select theoption for EP scheduling documented in this encounter Plan of Treatment Upcoming Encounters Date Type Department Care Team (Latest Contact Info) Description 11/25/2024 1:00 PM EDT Hospital Encounter [facility] [place] [address] [place] [phone] Lois Madison MD [address] [place], [place] [id number] Nonischemic cardiomyopathy ([facility]) 11/25/2024 1:00 PM EDT - 11/25/2024 3:00 PM EDT Surgery [facility] [place] [address] [place] [phone] Lois Madison MD [address] [place] [address] BIV ICD gen change - BSI 01/06/2025 10:10 AM EDT Ophthalmology Imaging [facility] [address] [place] [phone] 01/06/2025 10:20 AM EDT Office Visit [facility] [address] [place] [address] Daniel Ferrer, ALON [address] [place] [address] 02/13/2025 10:30 AM EDT Clinical Support [facility] [address] [place] [phone] 02/13/2025 11:15 AM EDT Office Visit [facility] [address] [place] [address] Rambo Panchal, DO [address] [facility], [address] [place] [address] documented as of this encounter Visit Diagnoses Not on filedocumented in this encounter Care Teams Radiation / Chemistry Technician Relationship Specialty Start Date End Date Tika Humphries MD [address] [place] [address] PCP - General 01/09/14 documented as of this encounter
--- OUTSIDE RECORDS SUMMARY | 2024-09-30 10:42 | XMS_ITS | Encounter Summary ---
Author Organization [facility] [employer] [facility] tem Address [facility] [place] [id number] [address] [place] [address] Care Team Providers Care Director Of Casework Name Role Phone Tika Humphries MD Primary Care Provider +1- [phone] Encounter Details Date Type Department Care Team (Late st Contact Info) Description 12/27/2021 [facility] [address] [place] [phone] External, Scanning Provider Social History Tobacco [...] have Coronavirus / COVID-19? No / Unsure 12/30/2021 10:57 AM EDT documented as of this encounter Plan of Treatment Upcoming Encounters Date Type Department Care Team (Latest Contact Info) Description 11/25/2024 1:00 PM EDT Hospital Encounter [facility] [address] [place] [phone] Lois Madison MD [address] [place] [address] Nonischemic cardiomyopathy (CMS-HCC) 11/25/2024 1:00 PM EDT - 11/25/2024 3:00 PM EDT Surgery [facility] [address] [place] [address] Lois Madison MD [address] [place] [address] BIV ICD gen change - BSI 01/06/2025 10:10 AM EDT Ophthalmology Imaging [facility] [address] [place] [address] 01/06/2025 10:20 AM EDT Office Visit [facility] [address] [facility] [address] [place] [phone] Daniel Ferrer, ALON [address] [place] [address] 02/13/2025 10:30 AM EDT Clinical Support [facility] [address] [place] [address] [address] [place] [phone] 02/13/2025 11:15 AM EDT Office Visit [facility] [address] [place] [address] [address] [place] [address] Rambo Panchal DO [address] [place] [address], [address] [place] [address] documented as of this encounter Procedures Procedure Name Priority Date/Time Associated Diagnosis Comments MULTIPLE LABS Routine 12/24/2021 LIPID PROFILE Routine 12/24/2021 documented in this encounter Results * Lipid profile (12/24/2021) External Cholesterol 168 MANUALLY TRANSCRIBED RESULTS External Cholesterol:Hdl 2.6 MANUALLY TRANSCRIBED RESULTS External Hdl Cholesterol 64 MANUALLY TRANSCRIBED RESULTS External Ldl (Calc) 78 MANUALLY TRANSCRIBED RESULTS External Triglycerides 131 MANUALLY TRANSCRIBED RESULTS us Scanning Provider External LAB BLOOD ORDERABLES Edited Result - Final MANUALLY TRANSCRIBED RESULTS * Multiple labs (12/24/2021) us Scanning Provider External [facility] Edite d Result - Final MANUALLY TRANSCRIBED RESULTS documented in this encounter Visit Diagnoses Not on filedocumented in this encounter Care Teams Director Of Casework Relationship Specialty Start Date End Date Tika Humphries MD [address] [place] [address] PCP - General 01/09/14 documented as of this encounter
--- OUTSIDE RECORDS SUMMARY | 2024-09-30 10:42 | XMS_ITS | Encounter Summary ---
Author Organization [employer] Address [id number] [address] [place] [address] Care Team Providers Care Medart Operator Name Role Phone Tika Humphries MD Primary Care Provider [phone]- [phone] Encounter Details Date Type Department Care Team (Late st Contact Info) Description 07/02/2021 Orders Only [facility] [address] [facility] [address] [place] [phone] Rambo Panchal DO [address] [facility], [address] [place] [address] Encounter for interrogation of cardiac defibrillator Social History Tobacco Use Types Packs/Day Years [...] have Coronavirus / COVID-19? No / Unsure 07/01/2021 10:46 AM EST documented as of this encounter Plan of Treatment Upcoming Encounters Date Type Department Care Team (Latest Contact Info) Description 11/25/2024 1:00 PM EDT Hospital Encounter [facility] [place] [address] [place] [address] Lois Madison MD [address] [place] [address] Nonischemic cardiomyopathy ([facility]) 11/25/2024 1:00 PM EDT - 11/25/2024 3:00 PM EDT Surgery [facility] [place] [address] [facility] [place] [address] Lois Madison MD [address] [place] [address] BIV ICD gen change - BSI 01/06/2025 10:10 AM EDT Ophthalmology Imaging [facility] [address] [place] [address] 01/06/2025 10:20 AM EDT Office Visit [facility] [address] [place] [address] Daniel Ferrer, OD [address] [place] [address] 02/13/2025 10:30 AM EDT Clinical Support [facility] [address] [place] [address] 02/13/2025 11:15 AM EDT Office Visit [facility] [address] [place] [address] Rambo Panchal DO [address] [facility], [address] [place] [address] documented as of this encounter Procedures Procedure Name Priority Date/Time Associated Diagnosis Comments DEVICE INTERROGATION Routine 07/01/2021 Encounter for interrogation of cardiac defibrillator documented in this encounter Results * Device Interrogation (07/01/2021) Anatomical Region Laterality Modality Other Rambo Panchal DO [facility] ORDERABLE S Final Result documented in this encounter Visit Diagnoses Diagnosis Encounter for interrogation of cardiac defibrillator Nonischemic cardiomyopathy (CMS-HCC)- Primary Other primary cardiomyopathies Nonischemic cardiomyopathy (CMS-HCC) Other primary cardiomyopathies documented in this encounter Care Teams Medart Operator Relationship Specialty Start Date End Date Tika Humphries MD [address] [place] [address] PCP - General 01/09/14 documented as of this encounter
--- OUTSIDE RECORDS SUMMARY | 2024-09-30 10:42 | XMS_ITS | Encounter Summary ---
Author Organization [employer] Address [id number] [address] [place] [address] Care Team Providers Care Agency Owner Name Role Phone Tika Humphries MD Primary Care Provider +1- [phone] Encounter Details Date Type Department Care Team (Late st Contact Info) Description 01/14/2022 [facility] [address] [address] Aurora Zeng, JUDITH Social History Tobacco Use Types Packs/Day Years [...] AM EDT documented as of this encounter Miscellaneous Notes * Telephone Encounter - Aurora Zeng RN - 01/14/2022 12:55 PM EDT Pt seen f/u 12/30/21. C/o SOB Echo ordered.- results not sent, but customs entry writer checked for results. Echo done at [facility] 01/07/22 and can be viewed Care Everywhere- Echo with EF now decreased at 40%, was WNL 2018 echo Mod LVH with LV mod enlarged- was normal prior echo Left atrium severely dilated- was mild prior echo Mod dilated RV- was mild prior Mild-mod MR- was trivial prior. Will route to [facility] for review/recommendations. * Telephone Encounter - Rambo Panchal DO - 01/14/2022 12:55 PM EDT Suggest follow-up appointment, not urgent. * Telephone Encounter - Aurora Zeng RN - 01/14/2022 12:55 PM EDT Pt advised of echo results. Reviewed recommendations for f/u. Apt cancellation available today, butpt unable make. Pt will call back later today when her uday is accessible to schedule f/u. Pt has been seeing photography sales associate at [facility]. Recent CT done with note of fluid around lungs. * Telephone Encounter - Aurora Zneg RN - 01/14/2022 12:55 PM EDT Pit Clerk contacted pt back re. F/u scheduled. documented in this encounter Plan of Treatment Upcoming Encounters Date Type Department Care Team (Latest Contact Info) Description 11/25/2024 1:00 PM EDT Hospital Encounter [facility] [address] [place] [phone] Lois Madison MD [address] [place] [address] Nonischemic cardiomyopathy (CMS-HCC) 11/25/2024 1:00 PM EDT - 11/25/2024 3:00 PM EDT Surgery [facility] [address] [place] [address] Lois Madison MD [address] [place] [address] BIV ICD gen change - BSI 01/06/2025 10:10 AM EDT [facility] [address] [place] [address] 01/06/2025 10:20 AM EDT Office Visit [facility] [address] [place] [address] Daniel Ferrer, OD [address] [place] [address] 02/13/2025 10:30 AM EDT Clinical Support [facility] [address] [place] [phone] 02/13/2025 11:15 AM EDT Office Visit [facility] [address] [place] [address] Rambo Panchal, [address] [facility], [address] [place] [address] documented as of this encounter Visit Diagnoses Not on filedocumented in this encounter Care Teams Agency Owner Relationship Specialty Start Date End Date Tika Humphries MD [address] [facility] [place] [address] PCP - General 01/09/14 documented as of this encounter
--- OUTSIDE RECORDS SUMMARY | 2024-09-30 10:42 | XMS_ITS | Encounter Summary ---
Author Organization [employer] Address [facility] [id number] [address] [place] [address] Care Team Providers Care Academic Computing Director Name Role Phone Tika Humphries MD Primary Care Provider +1- [phone] Reason for Visit * Reason Onset Date Comments EP SURGERY - BIV ICD gen change 08/09/2024 Encounter Details Date Type Department Care Team (Late st Contact Info) Description 08/09/[address] [facility] [address] [place] [address] Stephanie Kruger LPN EP SURGERY - BIV ICD gen change Social History [...] Telephone Encounter - Stephanie Kruger LPN - 08/09/2024 11:36 AM EDT Received orders from [facility] in for PRN BIV ICD gen change, once hit GILBERTO Orders scanned Pt has monthly remotes until GILBERTO * Telephone Encounter - Yamile Pelaez RN - 08/09/2024 11:36 AM EDT Primary prevention - [place] BiV ICD - implanted 02/19/16 per MR. GILBERTO reached 09/23/24. Presenting EGM appears AF with BiV pacing. AT burden 100%. AF ongoing per trends. RVP 100%, LVP 100%. Hx of CHB. Previous PRN orders obtained from [facility] for gen change. Called patient and updated on battery status.She will beep until replacement, patient states she cannot hear the beep. Patient is aware surgery scheduling will be in contact. * Telephone Encounter - Lois Madison MD - 08/09/2024 11:36 AM EDT Can schedule * Telephone Encounter - Stephanie Kruger LPN - 08/09/2024 11:36 AM EDT Await confirmation of possible schedule change - will call to schedule once dates known * Telephone Encounter - Stephanie Kruger LPN - 08/09/2024 11:36 AM EDT Called and pt agreeable to first available date of 11/25 @ 1300 Reviewed instructions and sent via mail, pt v/u of all discussed documented in this encounter Plan of Treatment Upcoming Encounters Date Type Department Care Team (Latest Contact Info) Description 11/25/2024 1:00 PM EDT Hospital Encounter [facility] [place] [address] [place] [address] Lois Madison MD [address] [place] [address] Nonischemic cardiomyopathy ([facility]) 11/25/2024 1:00 PM EDT - 11/25/2024 3:00 PM EDT Surgery [facility] [place] [address] [place] [address] Lois Madison MD [address] [place] [address] BIV ICD gen change - BSI 01/06/2025 10:10 AM EDT Ophthalmology Imaging [facility] [address] [place] [address] 01/06/2025 10:20 AM EDT Office Visit [facility] [address] [place] [address] Daniel Ferrer, OD [address] [place] [address] 02/13/2025 10:30 AM EDT Clinical Support [facility] [address] [facility] [address] [place] [address] 02/13/2025 11:15 AM EDT Office Visit [facility] [address] [place], [place] [address] [place] [address] Rambo Panchal, [address] [facility], [address] [place] [address] documented as of this encounter Visit Diagnoses Not on filedocumented in this encounter Care Teams Academic Computing Director Relationship Specialty Start Date End Date Khamousia, Nidaa O, MD [address] [place] [address] PCP - General 01/09/14 documented as of this encounter
--- OUTSIDE RECORDS SUMMARY | 2024-09-30 10:42 | XMS_ITS | Encounter Summary ---
Author Organization [facility] Address [address] [place] [address] Care Team Providers Care Certified Tumor Registrar Name Role Phone Tika Humphries MD Primary Care Provider [phone] Encounter Details Date Type Department Care Team (Late st Contact Info) Description 09/26/2022 Abstract [facility] [address] [place] [phone] Tayo Terry, DO [address] [place] [address] Social History Tobacco Use Types Packs/Day Years Used Date Smoking Tobacco: Never Tobacco Cessation:Counseling Given: Not Answered Alcohol Use Standard Drinks/Week Comments Yes 0 (1 standard drink = 0.6 oz pur e alcohol) 1-2 drinks 2-4 times a month Comments Unknown Sex and Gender Information Value Date Recorded Sex Assigned at Not on file Legal Sex Female 8:32 PM EDT Gender Identity Not on file Sexual Orientation Not on file documented as of this encounter Plan of Treatment Not on file documented as of this encounter Visit Diagnoses Not on filedocumented in this encounter Care Teams Certified Tumor Registrar Relationship Specialty Start Date End Date Tika Humphries MD [address] [facility] [place] [address] PCP - General Internal Medicine 12/26/23 documented as of this encounter
--- OUTSIDE RECORDS SUMMARY | 2024-09-30 10:42 | XMS_ITS | Encounter Summary ---
Author Organization [facility] tem Address [facility] [id number] [address] [place] [address] Care Team Providers Care Supervisor Tunnel Heading Name Role Phone Tika Humphries MD Primary Care Provider [phone] Encounter Details Date Type Department Care Team (Late st Contact Info) Description 08/13/2024 [facility] Only [facility] [address] [place] [phone] Sara [place], [place] Automatic implantable cardioverter-defibrill ator in situ Social History Tobacco Use Types Packs/Day Years [...] Description 11/25/2024 1:00 PM EDT Hospital Encounter [facility] [address] [place] [address] Lois Madison MD [address] [place] [address] Nonischemic cardiomyopathy ([facility]) 11/25/2024 1:00 PM EDT - 11/25/2024 3:00 PM EDT Surgery [facility] [address] [place] [address] Lois Madison MD [address] [place] [address] BIV ICD gen change - BSI 01/06/2025 10:10 AM EDT Ophthalmology Imaging [facility] [address] [place] [phone] 01/06/2025 10:20 AM EDT Office Visit [facility] [address] [place] [address] Daniel Ferrer, OD [address] [place] [address] 02/13/2025 10:30 AM EDT Clinical Support [facility] [address] [place] [phone] 02/13/2025 11:15 AM EDT Office Visit [facility] [address] [place] [address] Rambo Panchal, [address] [facility] [place] [address] documented as of this encounter Procedures Procedure Name Priority Date/Time Associated Diagnosis Comments DEVICE INTERROGATION Routine 08/09/2024 Automatic implantable cardioverter-defibrillator in situ documented in this encounter Results * Device Interrogation (08/09/2024) Anatomical Region Laterality Modality Other Lois Madison MD [facility] ORDER TEMO Final Result documented in this encounter Visit Diagnoses Diagnosis Automatic implantable cardioverter-defibrillator in situ Nonischemic cardiomyopathy (CMS-HCC)- Primary Other primary cardiomyopathies Nonischemic cardiomyopathy (CMS-HCC) Other primary cardiomyopathies documented in this encounter Care Teams Supervisor Tunnel Heading Relationship Specialty Start Date End Date Tika Humphries MD [address] [place] [address] PCP - General 01/09/14 documented as of this encounter
--- OUTSIDE RECORDS SUMMARY | 2024-09-30 10:42 | XMS_ITS | Encounter Summary ---
Author Organization [facility] [facility] tem Address [id number] [address] [place] [address] Care Team Providers Care Mica Splitter Name Role Phone Tika Humphries MD Primary Care Provider [phone]- [phone] Encounter Details Date Type Department Care Team (Late st Contact Info) Description 02/23/2022 Orders Only [facility] Cardiology [address] [place] [address] External, Scanning Provider Social History [...] 11/25/2024 1:00 PM EDT Hospital Encounter [facility] [address] [place] [phone] Lois Madison MD [address] [place] [address] Nonischemic cardiomyopathy ([facility]) 11/25/2024 1:00 PM EDT - 11/25/2024 3:00 PM EDT Surgery [facility] [address] [place] [address] Lois Madison MD [address] [place] [address] BIV ICD gen change - BSI 01/06/2025 10:10 AM EDT Ophthalmology Imaging [facility] [address] [place] [phone] 01/06/2025 10:20 AM EDT Office Visit [facility] [address] [place] [phone] Daniel Ferrer, ALON [address] [place] [address] 02/13/2025 10:30 AM EDT Clinical Support [facility] [address] [place] [address] [address] [place] [phone] 02/13/2025 11:15 AM EDT Office Visit [facility] [address] [place] [address] [address] [place] [address] Rambo Panchal DO [address] [facility] [place] [address] documented as of this encounter Procedures Procedure Name Priority Date/Time Associated Diagnosis Comments CT CHEST WO CONT Routine 01/17/2022 documented in this encounter Results * CT chest without contrast (01/17/2022) Anatomical Region Laterality Modality Body, Lung, Chest, Body Covera N/A C omputed Tomography us Scanning Provider External IMG CT ORDERABLES Fin al Result documented in this encounter Visit Diagnoses Not on filedocumented in this encounter Care Teams Mica Splitter Relationship Specialty Start Date End Date Tika Humphries MD [address] [place] [address] PCP - General 01/09/14 documented as of this encounter
[2024-09-30 11:29] LABS: Basophils Absolute Auto 0.1 10^3/uL (0.0-0.1); Basophils Percent Auto 0.7 % (0.2-2.0); Eosinophils Absolute Auto 0.2 10^3/uL (0.0-0.7); Eosinophils Percent Auto 2.1 % (0.9-7.0); Hematocrit 41.5 % (36.0-48.0); Hemoglobin 13.5 g/dL (12.0-16.0); Immature Granulocytes Abs Auto 0.03 10^3/uL (0.00-0.03); Immature Granulocytes Pct Auto 0.3 % (0.0-0.5); Lymphocytes Absolute Auto 1.2 10^3/uL (1.2-3.8); Lymphocytes Percent Auto 10.2 % (20.5-60.0); Mean Corpuscular HGB Conc 32.5 g/dL (29.9-35.2); Mean Corpuscular Hemoglobin 30.3 pg (26.7-34.0); Mean Platelet Volume 9.6 fL (9.5-13.5); Monocytes Percent Auto 8.8 % (1.7-12.0); Neutrophils Percent Auto 77.9 % (43.0-75.0); Platelet Count 384 10^3/uL (150-450); Red Blood Count 4.46 10^6/uL (4.20-5.40); Red Cell Distribution Width 14.3 % (11.0-15.0); White Blood Count 11.5 10^3/uL (4.0-11.0)
[2024-09-30 11:48] LABS: Anion Gap 16.4; BUN Creatinine Ratio 29.7; Calcium 9.9 mg/dL (8.5-10.1); Carbon Dioxide 24.9 mmol/L (21.0-32.0); Chloride 104 mmol/L (98-107); Estimated GFR (African America >60 (>=60 mL/min/1.73m^2); Estimated GFR (Non-African Ame 53 (>=60 mL/min/1.73m^2); Glucose 86 mg/dL (74-106); Potassium 4.3 mmol/L (3.5-5.1); Sodium 141 mmol/L (136-145); Thyroid Stimulating Hormone 2.066 uIU/mL (0.358-3.740)
[2024-09-30 12:17] LABS: Free T4 1.06 ng/dL (0.76-1.46)
== END 2024-09-30 10:36 | disposition home or self-care (01) ==
LOC: LAB 10:39
DX: E03.9 Hypothyroidism, unspecified (principal); I10 Essential (primary) hypertension
CPT/HCPCS: 36415; 80048; 84439; 84443; 85025

== ENCOUNTER 2024-11-04 10:30 | Outpatient (OUT) | payer MEDICARE, OTHER, SELFPAY ==
--- OUTSIDE RECORDS SUMMARY | 2024-10-30 14:41 | XMS_ITS ---
Author Name Auto Generated Organization OHIP Support Name Relationship Address Phone MARIA ALEJANDRA, PATRICIA Next of Kin Unknown [phone] MARIA ALEJANDRA, PATRICIA Next of Kin Unknown [phone] MARIA ALEJANDRA, PATRICIA Next of Kin Unknown [phone] MARIA ALEJANDRA, PATRICIA Next of Kin Unknown [phone] MARIA ALEJANDRA, PATRICIA Next of Kin Unknown [phone] MARIA ALEJANDRA, PATRICIA Next of Kin Unknown [phone] MARIA ALEJANDRA, CHERY Next of Kin Unknown [phone] MARIA ALEJANDRA, PATRICIA Next of Kin Unknown [phone] MARIA ALEJANDRA, PATRICIA Next of Kin Unknown [phone] MARIA ALEJANDRA, PATRICIA Next of Kin Unknown [phone] MARIA ALEJANDRA, CHERY Next of Kin Unknown [phone] MARIA ALEJANDRA, PATRICIA Next of Kin Unknown [phone] MARIA ALEJANDRA, PATRICIA Next of Kin Unknown [phone] MARIA ALEJANDRA, CHERY Next of Kin Unknown [phone] MARIA ALEJANDRA, PATRICIA Next of Kin Unknown [phone] MARIA ALEJANDRA, PATRICIA Next of Kin Unknown [phone] MARIA ALEJANDRA, PATRICIA Next of Kin Unknown [phone] MARIA ALEJANDRA, PATRICIA Next of Kin Unknown [phone] MARIA ALEJANDRA, PATRICIA Next of Kin Unknown [phone] Care Team Providers Care Algologist Name Role Phone CLARE COOPER Attending Unavailable TIKA HUMPHRIES Referring Unavailable KHAMOUSIA, NIDAA O Primary Care Unavailable DAVID SANCHEZ Attending Unavailable KHAMOUSIA, NIDAA O Referring Unavailable KHAMOUSIA, NIDAA O Primary Care Unavailable DAVID SANCHEZ Referring Unavailable KHAMOUSIA, NIDAA O Primary Care Unavailable KHAMOUSIA, NIDAA O Referring Unavailable KHAMOUSIA, NIDAA O Primary Care Unavailable KHAMOUSIA, NIDAA O Referring Unavailable KHAMOUSIA, NIDAA O Primary Care Unavailable CLARE COOPER Attending Unavailable KHAMOUSIA, NIDAA O Referring Unavailable KHAMOUSIA, NIDAA O Primary Care Unavailable KHAMOUSIA, NIDAA O Referring Unavailable KHAMOUSIA, NIDAA O Primary Care Unavailable YAJAIRA DUKE Attending Unavailable KHAMOUSIA, NIDAA O Referring Unavailable KHAMOUSIA, NIDAA O Primary Care Unavailable DAVID SANCHEZ Attending Unavailable KHAMOUSIA, NIDAA O Referring Unavailable KHAMOUSIA, NIDAA O Primary Care Unavailable KHAMOUSIA, NIDAA O Referring Unavailable KHAMOUSIA, NIDAA O Primary Care Unavailable DAVID SANCHEZ Referring Unavailable KHAMOUSIA, NIDAA O Primary Care Unavailable KHAMOUSIA, NIDAA O Referring Unavailable KHAMOUSIA, NIDAA O Primary Care Unavailable LOVE AREVALO Attending Unavailable KHAMOUSIA, NIDAA O Referring Unavailable KHAMOUSIA, NIDAA O Primary Care Unavailable GÉNESIS LOPEZ Attending Unavailable KHAMOUSIA, NIDAA Primary Care Unavailable OJUKWU, Mbanefo Admitting Unavailable OJUKWU, Mbanefo Attending Unavailable Franky, Ike Attending Unavailable Ike Wilkins Attending Unavailable Marty LOREDO Attending Unavailable OJUKWU, Mbanefo Admitting Unavailable OJUKWU, Mbanefo Attending Unavailable OJUKWU, Mbanefo Attending Unavailable OJUKWU, Mbanefo Admitting Unavailable Marty LOREDO Attending Unavailable Chery Olson Attending Unavailable OJUKWU, Mbanefo Admitting Unavailable OJUKWU, Mbanefo Attending Unavailable OJUKWU, Mbanefo Admitting Unavailable OJUKWU, Mbanefo Attending Unavailable ADRIAN PURCELL Attending Unavailable ADRIAN PURCELL Attending Unavailable ADRIAN PURCELL Attending Unavailable PROBLEMS DATE TYPE CONDITION / CODE ATTENDING STATUS [facility] 10/30/2024 Unknown Allergic purpura / D69.0(ICD-10) GÉNESIS LOPEZ Active [facility] 01/26/2024 Unknown Presence of auto matic (implantable) cardiac defibrillator / Z95.810(ICD-10) NA Active [facility] 02/01/2024 Unknown Device Check / FREETEXT(AOF) [facility] 01/26/2024 Unknown Chronic combined systolic (congestive) and diastolic (congestive) heart failure / I50.42(ICD-10) YAJAIRA DUKE Active [facility] 08/17/2017 Unknown Other persistent atrial fibrillation / I48.19(ICD-10) YAJAIRA DUKE C Active [facility] 12/30/2020 Unknown Chronic systolic (congestive) heart failure / I50.22(ICD-10) CLARE COOPER [facility] 12/25/2023 Unknown Pain, unspecifie d / R52(ICD-10) [facility] 12/20/2023 Unknown Primary open-ang le glaucoma, right eye, mild stage / H40.1111(ICD-10) DAVID SANCHEZ [facility] 12/20/2023 Unknown Presence of intraocular lens / Z96.1(ICD-10) DAVID SANCHEZ [facility] 12/20/2023 Unknown Vitreous degener ation, bilateral / H43.813(ICD-10) DAVID SANCHEZ [facility] 12/20/2023 Unknown Vertical strabis mus, left eye / H50.22(ICD-10) DAVID SANCHEZ [facility] 12/20/2023 Unknown Unspecified here ditary corneal dystrophies, unspecified eye / H18.509(ICD-10) DAVID SANCHEZ [facility] 12/20/2023 Unknown Glaucoma / FREETEXT(AOF) DAVID SANCHEZ [facility] 12/30/2020 Unknown Chronic diastoli c (congestive) heart failure / I50.32(ICD-10) CLARE COOPER [facility] 08/17/2017 Unknown 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) CLARE COOPER [facility] 08/17/2017 Unknown Left bundle-bran ch block, unspecified / I44.7(ICD-10) MIKENOELLECLARE Germain [facility] 08/17/2017 Unknown Unspecified atri al fibrillation / I48.91(ICD-10) [facility] 08/17/2017 Unknown Essential (prima ry) hypertension / I10(ICD-10) [facility] 08/17/2017 Unknown Hyperlipidemia, unspecified / E78.5(ICD-10) [facility] 11/21/2023 Unknown Other forms of d yspnea / R06.09(ICD-10) [facility] CL[facility] 11/21/2023 Unknown Family history o f ischemic heart disease and other diseases of the circulatory system / Z82.49(ICD-10) [facility] CL[facility] [place] [facility] 11/21/2023 Unknown Follow-up / FREETEXT(AOF) [facility] 11/21/2023 Unknown Atrial Fibrillat ion / FREETEXT(AOF) [facility] 11/21/2023 Unknown Hypertension / FREETEXT(AOF) [facility] PROCEDURES No Procedure Records Found RESULTS CBC WITH DIFF Collected: 10/30/2024 3:05 PM Status: F Source: [facility] TYPE CODE TESTS RESULT OUT OF RANGE REFERENCE UNITS LAB WBC(LOINC) WBC Count 10.6 3.5-11.0 k/uL LAB RBC(LOINC) RBC Count 4.03 4.00-5.20 m/uL LAB HGB(LOINC) Hemoglobin 12.0 12.0-16.0 g/dL LAB HCT(LOINC) Hematocrit 37.1 36.0-46.0 % LAB MCV(LOINC) MCV 92.1 80.0-100.0 fL LAB MCH(LOINC) MCH 29.8 26.0-34.0 pg LAB MCHC(LOINC) MCHC 32.3 31.0-37.0 g/dL LAB RDW(LOINC) RDW 14.2 12.1-15.2 % LAB PLT(LOINC) Platelet Count 457 High 140-450 k/uL LAB MPVX(LOINC) MPV 9.3 6.0-12.0 fL LAB SEG(LOINC) Neutrophil (Seg) 78 High 47-75 % LAB LYM(LOINC) Lymphocyte 10 Low 15-40 % LAB MON(LOINC) Monocyte 8 4-8 % LAB EO(LOINC) Eosinophil 2 0-5 % LAB BASO(LOINC) Basophil 1 0-2 % LAB IGRAN(LOINC) Immature Granulocyte 1 0-5 % LAB ASEG(LOINC) Abs.Neutrophil (Seg) 8.47 High 2.5-7.0 k/uL LAB ALYM(LOINC) Abs. Lymph 1.06 1.00-4.80 k/uL LAB AMONO(LOINC) Abs. Monocyte 0.82 0.00-1.00 k/u L LAB AEO(LOINC) Abs. Eosinophil 0.16 0.00-0.40 k/u L LAB ABASO(LOINC) Abs. Basophil 0.05 0.00-0.20 k/u L LAB AIGRAN(LOINC) Abs.Imm.Granuloc yte 0.05 0.00-0.30 k/uL Performed By: #### CP, PTT, CDP, SED, PT #### [facility] [address] [place] [address] General Operations Agent: Tayo Loera MD SEDIMENTATION RATE Collected: 10/30/2024 3:05 PM Sta tus: F Source: [facility] TYPE CODE TESTS RESULT OUT OF RANGE REFERENCE UNITS LAB SED(LOINC) Sedimentation Rate 56 High 0-30 mm/Hr Performed By: #### CP, PTT, CDP, SED, PT #### [facility] [address] [place] [address] General Operations Agent: Tayo Loera MD PT Collected: 10/30/2024 3:05 PM Status: F Source: [facility] TYPE CODE TESTS RESULT OUT OF RANGE REFERENCE UNITS LAB PTR(LOINC) Prothrombin Time 32.2 High 11.5-14.2 sec LAB INR(LOINC) INR 3.0 Result Comment: Therapeutic Range: Moderate Anticoagulant Intensity: INR = 2.0-3.0 High Anticoagulant Intensity: INR = 2.5-3.5 Performed By: #### CP, PTT, CDP, SED, PT #### [facility] [address] [place] [address] General Operations Agent: Tayo Loera MD COMP METABOLIC PROF Collected: 10/31/19 3:05 PM Status: F Source: [facility] TYPE CODE TESTS RESULT OUT OF RANGE REFERENCE UNITS LAB NA(LOINC) NA (Sodium) 137 135-144 mmol/L LAB K(LOINC) K (Potassium) 4.5 3.7-5.3 mmol/L LAB CL(LOINC) Chloride 105 98-107 mmol/L LAB HCO(LOINC) CO2 23 20-31 mmol/L LAB GAP(LOINC) Anion Gap 9 9-17 mmol/L LAB GLU(LOINC) Glucose 125 High 70-99 mg/dL LAB BUN(LOINC) BUN (Urea N) 28 High 8-23 mg/dL LAB CRE(LOINC) Creatinine 1.5 High 0.5-0.9 mg/dL LAB EGFR(LOINC) eGFR 36 Low >60 mL/min/1. 73m2 Result Comment: These results are not intended for use in patients <18 years of age. eGFR results are calculated without a race factor using the 2020 CKD-EPI equation. Careful clinical correlation is recommended, particularly when comparing to results calculated using previous equations. The CKD-EPI equation is less accurate in patients with extremes of muscle mass, extra-renal metabolism of creatine, excessive creatine ingestion, or following therapy that affects renal tubular secretion. LAB CA(LOINC) Calcium 9.3 8.6-10.4 mg/dL LAB TP(LOINC) Protein, Total 6.8 6.4-8.3 g/dL LAB ALB(LOINC) Albumin 3.7 3.5-5.2 g/dL LAB AG(LOINC) Albumin/Glob Ratio 1.2 1.0-2.5 LAB TBIL(LOINC) Bilirubin, Total 0.5 0.3-1.2 mg/dL LAB ALP(LOINC) Alkaline Phos 80 35-104 U/L LAB ALT(LOINC) ALT 17 5-33 U/L LAB AST(LOINC) AST 19 <32 U/L Performed By: #### CP, PTT, CDP, SED, PT #### [facility] [address] [place], [place] [id number] General Operations Agent: Tayo Loera MD APTT Collected: 3:05 PM Status: F Source: [facility] TYPE CODE TESTS RESULT OUT OF RANGE REFERENCE UNITS LAB PTTR(LOINC) PTT 41.1 High 23.9-33.8 sec Result Comment: IV Heparin Therapy Range: 62.0-94.0 Performed By: #### CP, PTT, CDP, SED, PT #### [facility] [address] [place] [address] General Operations Agent: Tayo Loera MD FAMILY MEDICINE OFFICE/CLINI C NOTE Observed: 10/25/2024 8:40 AM Status: F Source: [facility] Family Medicine Office/Clini c Note History of Present Illness TCU DISCHARGE after TCU admit Inpatient [facility]10[facility]. She presented to ED with fever and chills x 3 days and syncopal episode. She was found with new urinary incontinence with urgency, demand ischemia. Admitted for LLL pneumonia, sepsis, possible UTI. She fell from bed in hospital, negative imaging. 1 of 1 blood culture grew staph epi, likely skin contaminant. Urine culture neg. Overall condition improved, oxygen weaned off. Admitted to TCU for ST rehab stay. Patient completed ST rehab stay. Plan to discharge on 10/26/2024 to home. Patient does not need home health services. Hb 12.9 Cr 1.0 EGFR 58 Na+ 134 K+ 3.6 ALB 3.9 Urine Cx mixed skin contaminant BC Staph epidermidis in 1 of 1 PMHx- HTN, systolic HF s/p AICD, PAF, chronic hyponatremia, hypothyroid, glaucoma, gout, GERD, 1.2 cm left adrenal nodule, 5 mm right kidney nodule, obesity, history of breast CA PCP Tika Humphries MD IM at [facility] [place] , Used to live in [place] Physical Exam GENERAL - 79yo female sitting in recliner, A+O x3 LUNGS - CTA CARDIAC - RRR, No murmur ABD - BSP, Non-distended, NT EXT - No distal edema Assessment/Plan 1. Pneumonia (J18.9: Pneumonia, unspecified organism) improved throughout inpatient and ST rehab stay. Finished oral azithromycin, cefdinir Would recommend f/u CXR 4 wks, PCP can order Completed ST rehab stay 2. Chronic systolic heart failure (I50.22: Chronic systolic (congestive) heart failure) Condition stable. She states they were adjusting her medications this spring. Losartan was reduced but her BP's were elevated so she was given her full tab. Continue Coreg 6.25 mg 1 tab in a.m. and 2 tabs at bedtime and losartan 25 mg daily EF 40% 3. AICD (automatic cardioverter/defibrillator) present (Z95.810: Presence of automatic (implantable) cardiac defibrillator) She has a pacemaker to correct for any low HR. Continue Coreg 6.25 mg 1 tab in a.m. and 2 tabs at bedtime. 4. PAF (paroxysmal atrial fibrillation) (I48.0: Paroxysmal atrial fibrillation) Continue Xarelto 20 mg daily Orders: guaifenesin, 600 mg, Oral, BID, X 3 day(s), # 14 tab(s), Refills(s) 0 Patient has a mobility limitation that impairs her ability to complete 1 or more MRADLs, namely bathing, dressing, ambulating, grooming. She can safely use the rollator and the mobility deficit can be resolved. Patient has a mobility limitation that impairs her ability to sit on a regular toilet seat for toileting. She requires the use of a raised toilet seat with arms. This will allow her to maintain her balance and give her enough leverage to be able to stand up once toileting is over. With the use of raised toilet seat with arms her mobility limitation will be resolved. Portions of this record may have been created with voice recognition artificial intelligence software, specifically [employer], [employer] and or [employer]. Occasional wrong-word or `[id number]??? substitutions may have occurred due to the inherent limitations of voice recognition and artificial intelligence software. Time spent on discharge chart prep today, examining pt, medication review/reconciliation, discussing care with pt/family and/or nursing, and chart completion 45 minutes. Follow-up With When Contact Information RUFINO RICE, [facility] Within [address] to [address] [place] [address]- Additional Instructions: Problem List/Past Medical History Ongoing AICD (automatic cardioverter/defibrillator) present Asymptomatic microscopic hematuria Chronic systolic heart failure Gout PAF (paroxysmal atrial fibrillation) Pneumonia Renal cyst Historical Congestive heart failure GERD - Gastro-esophageal reflux disease Hyperlipidemia Hypertension Hypothyroid Procedure/Surgical History Mastectomy. Medications acetaminophen 325 mg Tab, 650 mg= 2 tab(s), Oral, q6hr, PRN allopurinol 100 mg Tab, 100 mg= 1 tab(s), Oral, Daily calcium (as carbonate) 600 mg oral tablet, 600 mg= 1 tab(s), Oral, Daily carvedilol 6.25 mg Tab, 12.5 mg= 2 tab(s), Oral, Bedtime carvedilol 6.25 mg Tab, 6.25 mg= 1 tab(s), Oral, Daily Flonase 0.05 mg/inh [place], 0.1 mg= 2 spray(s), Nasal, Daily, Pre-arrival medication furosemide 20 mg Tab, See Instructions gabapentin 100 mg Cap, 200 mg= 2 cap(s), Oral, BID gabapentin 100 mg Cap, 400 mg= 4 cap(s), Oral, Bedtime Jardiance 10 mg oral tablet, 10 mg= 1 tab(s), Oral, qAM levothyroxine 50 mcg (0.05 mg) Tab, 50 mcg= 1 tab(s), Oral, Daily losartan 25 mg Tab, 25 mg= 1 tab(s), Oral, Daily magnesium oxide 500 mg oral tablet, 500 mg= 1 tab(s), Oral, Daily melatonin 3 mg Tab, 3 mg= 1 tab(s), Oral, Bedtime, PRN Multi-Day Plus Minerals, 1 tab(s), Oral, Daily Nexium 20 mg Cap-DR, 20 mg= 1 cap(s), Oral, Daily simvastatin 40 mg Tab, 40 mg= 1 tab(s), Oral, Once a day (at bedtime) spironolactone 25 mg Tab, 12.5 mg= 0.5 tab(s), Oral, Daily Timolol Maleate, Ophthalmic 0.5% preservative-free ophthalmic solution, 1drop, Eye-Both, BID Vitamin D3 2000 intl units oral Tab, 2000 International_Unit= 1 cap(s), Oral, Daily Xarelto 20 mg oral tablet, 20 mg= 1 tab(s), Oral, Daily Allergies Ceclor (Swelling, Rash) Social History Alcohol - Low Risk, 03/29/2018 Substance Abuse - Denies Substance Abuse, 11/04/2017 Tobacco - Denies Tobacco Use, 11/04/2017 Never (less than 100 in lifetime) Tobacco Use:., 10/04/2022 Family History Acute myocardial infarction: Father. Metastatic cancer: Sister. Stroke: Mother. Immunizations Vaccine Date Status Comments influenza virus vaccine, inactivated 02/10/2022 Recorded SARS-CoV-2 (COVID-19) mRNA-1273 vaccine 02/28/2021 Recorded influenza virus vaccine, inactivated 01/22/2021 Recorded SARS-CoV-2 (COVID-19) mRNA-1273 vaccine 07/23/2020 Recorded SARS-CoV-2 (COVID-19) mRNA-1273 vaccine 06/27/2020 Recorded 2022-04-19: [id number] influenza virus vaccine, inactivated 02/27/2019 Recorded pneumococcal 23-valent vaccine 08/17/2018 Recorded influenza virus vaccine, inactivated 02/13/2018 Recorded zoster vaccine, inactivated 11/30/2017 Recorded zoster vaccine, inactivated 08/15/2017 Recorded influenza virus vaccine, inactivated 02/07/2017 Recorded pneumococcal 13-valent vaccine 08/09/2016 Recorded influenza virus vaccine, inactivated 02/08/2016 Recorded influenza virus vaccine, inactivated 01/13/2015 Recorded pneumococcal 13-valent vaccine 08/15/2014 Recorded influenza virus vaccine, inactivated 01/28/2014 Recorded influenza virus vaccine, inactivated 01/22/2013 Recorded Td(adult) unspecified formulation 04/13/2012 Recorded influenza virus vaccine, inactivated 02/15/2000 Recorded influenza virus vaccine, inactivated 04/12/1999 Recorded Result Comment: Electronical ly Signed By: Whitney GARSIA, Chery Martinez\.gisela\Date and Time Signed: 10/25/24 10:57 EDT FAMILY MEDICINE OFFICE/CLINI C NOTE Observed: 10/23/2024 10:18 AM Status: F Source: [facility] Family Medicine Office/Clini c Note History of Present Illness [facility]CU ADMIT from [facility] [place]22 Fever chills x 3 days, syncopal episode. New urinary incontinence with urgency, demand ischemia. Admitted for LLL pneumonia, sepsis possible UTI. Fell from bed in hospital, negative imaging. 1 of 1 blood culture staph epi, likely skin contaminant. Urine cx neg. Overall condition improved, oxygen weaned off. Here for ST rehab stay. Hb 12.9 Cr 1.0 EGFR 58 Na+ 134 K+ 3.6 ALB 3.9 Urine Cx mixed skin contaminant BC Staph epidermidis in 1 of 1 PMHx- HTN, systolic HF s/p AICD, PAF, chronic hyponatremia, hypothyroid, glaucoma, gout, GERD, 1.2 cm left adrenal nodule, 5 mm right kidney nodule, obesity, history of breast CA PCP Tika Humphries MD IM at [facility], [place], Used to live in [place] Physical Exam Alert, pleasant WF seated in chair in NAD. lungs CTA, good excursion. Bases clear Ht RRR wo murmur no distal edema Assessment/Plan 1. Pneumonia (J18.9: Pneumonia, unspecified organism) improved. Finish out oral azithromycin, cefdinir rec'd f/u CXR 4 wks, PCP can order ST rehab stay- expect short stay 2. Chronic systolic heart failure (I50.22: Chronic systolic (congestive) heart failure) stable. States they were adjusting her meds this spring, losartan was reduced but her BP's elevated so giving her full tab. Explained maximizing dose maximizes benefit. EF 40% 3. AICD (automatic cardioverter/defibrillator) present (Z95.810: Presence of automatic (implantable) cardiac defibrillator) with pacemaker so no concern for low HR on BB 4. PAF (paroxysmal atrial fibrillation) (I48.0: Paroxysmal atrial fibrillation) on Xarelto 20 Full Code Follow-up No qualifying data available Problem List/Past Medical History Ongoing AICD (automatic cardioverter/defibrillator) present Asymptomatic microscopic hematuria Chronic systolic heart failure Gout PAF (paroxysmal atrial fibrillation) Pneumonia Renal cyst Historical Congestive heart failure GERD - Gastro-esophageal reflux disease Hyperlipidemia Hypertension Hypothyroid Procedure/Surgical History Mastectomy. Medications acetaminophen 325 mg Tab, 650 mg= 2 tab(s), Oral, q6hr, PRN allopurinol 100 mg Tab, 100 mg= 1 tab(s), Oral, Daily calcium (as carbonate) 600 mg oral tablet, 600 mg= 1 tab(s), Oral, Daily carvedilol 6.25 mg Tab, 12.5 mg= 2 tab(s), Oral, Bedtime carvedilol 6.25 mg Tab, 6.25 mg= 1 tab(s), Oral, Daily cefdinir 300 mg Cap, 300 mg= 1 cap(s), Oral, q12hr Flonase 0.05 mg/inh [place], 0.1 mg= 2 spray(s), Nasal, Daily, Pre-arrival medication furosemide 20 mg Tab, See Instructions gabapentin 100 mg Cap, 200 mg= 2 cap(s), Oral, BID gabapentin 100 mg Cap, 400 mg= 4 cap(s), Oral, Bedtime Jardiance 10 mg oral tablet, 10 mg= 1 tab(s), Oral, qAM levothyroxine 50 mcg (0.05 mg) Tab, 50 mcg= 1 tab(s), Oral, Daily losartan 25 mg Tab, 25 mg= 1 tab(s), Oral, Daily magnesium oxide 500 mg oral tablet, 500 mg= 1 tab(s), Oral, Daily melatonin 3 mg Tab, 3 mg= 1 tab(s), Oral, Bedtime, PRN Mucinex 600 mg Tab-ER, 600 mg, Oral, BID Multi-Day Plus Minerals, 1 tab(s), Oral, Daily Nexium 20 mg Cap-DR, 20 mg= 1 cap(s), Oral, Daily simvastatin 40 mg Tab, 40 mg= 1 tab(s), Oral, Once a day (at bedtime) spironolactone 25 mg Tab, 12.5 mg= 0.5 tab(s), Oral, Daily Timolol Maleate, Ophthalmic 0.5% preservative-free ophthalmic solution, 1drop, Eye-Both, BID Vitamin D3 2000 intl units oral Tab, 2000 International_Unit= 1 cap(s), Oral, Daily Xarelto 20 mg oral tablet, 20 mg= 1 tab(s), Oral, Daily Zithromax 500 mg oral tablet, 500 mg= 1 tab(s), Oral, Daily Allergies Ceclor (Swelling, Rash) Social History Alcohol - Low Risk, 03/29/2018 Substance Abuse - Denies Substance Abuse, 11/04/2017 Tobacco - Denies Tobacco Use, 11/04/2017 Never (less than 100 in lifetime) Tobacco Use:., 10/04/2022 Family History Acute myocardial infarction: Father. Metastatic cancer: Sister. Stroke: Mother. Immunizations Vaccine Date Status Comments influenza virus vaccine, inactivated 02/10/2022 Recorded SARS-CoV-2 (COVID-19) mRNA-1273 vaccine 02/28/2021 Recorded influenza virus vaccine, inactivated 01/22/2021 Recorded SARS-CoV-2 (COVID-19) mRNA-1273 vaccine 07/23/2020 Recorded SARS-CoV-2 (COVID-19) mRNA-1273 vaccine 06/27/2020 Recorded 2022-04-19: [id number] influenza virus vaccine, inactivated 02/27/2019 Recorded pneumococcal 23-valent vaccine 08/17/2018 Recorded influenza virus vaccine, inactivated 02/13/2018 Recorded zoster vaccine, inactivated 11/30/2017 Recorded zoster vaccine, inactivated 08/15/2017 Recorded influenza virus vaccine, inactivated 02/07/2017 Recorded pneumococcal 13-valent vaccine 08/09/2016 Recorded influenza virus vaccine, inactivated 02/08/2016 Recorded influenza virus vaccine, inactivated 01/13/2015 Recorded pneumococcal 13-valent vaccine 08/15/2014 Recorded influenza virus vaccine, inactivated 01/28/2014 Recorded influenza virus vaccine, inactivated 01/22/2013 Recorded Td(adult) unspecified formulation 04/13/2012 Recorded influenza virus vaccine, inactivated 02/15/2000 Recorded influenza virus vaccine, inactivated 04/12/1999 Recorded Result Comment: Electronical ly Signed By: FACUNDO RICE, Marty\.br\Date and Time Signed: 10/23/24 10:18 EDT INPATIENT PATIENT SUMMARY Observed: 09/30 9:03 AM Status: F Source: [facility] Inpatient Patient Summary YENNY BESS :1945 Visit Date:10/17/2024 Inpatient Discharge Instructions Your Care Team Admitting Physician - JASIEL RICE, Mbanefo Reason for Your Visit weakness, passing out at home Your Diagnosis Acute respiratory failure with hypoxia Sepsis, unspecified organism, Sepsis Bacteremia LLL pneumonia Urinary tract infection Elevated troponin Neutrophilic leukocytosis Syncope and collapse General weakness Obese Chronic systolic congestive heart failure Hypertension Hyperlipidemia Hypothyroidism History of breast cancer Paroxysmal atrial fibrillation Presence of automatic cardioverter/defibrillator (AICD) On deep vein thrombosis (DVT) prophylaxis Back pain Dehydration Fall Fever > 75 years Trauma - major Weakness or fatigue Tests Performed Blood Culture Charcoal -- Results Pending -- Culture Blood Charcoal -- Results Pending -- Vancomycin Level Peak -- Results Pending -- Vancomycin Level Trough -- Results Pending -- CT Abdomen/Pelvis w/ Contrast CT C-Spine w/o Contrast CT Chest w/ Contrast CT Head or Brain w/o Contrast Echo Transthoracic Complete Shoulder XR Complete Right Please visit your patient portal for your results or contact your primary care physician. This Is Your Medications List acetaminophen (acetaminophen 325 mg Tab) albuterol-ipratropium (DuoNeb 2.5 mg-0.5 mg/3 mL Soln-Inh) allopurinol (allopurinol 100 mg Tab) azithromycin (Zithromax 500 mg oral tablet) calcium carbonate (calcium (as carbonate) 600 mg oral tablet) carvedilol (carvedilol 6.25 mg Tab) carvedilol (carvedilol 6.25 mg Tab) cefdinir (cefdinir 300 mg Cap) cholecalciferol (Vitamin D3 2000 intl units oral Tab) empagliflozin (Jardiance 10 mg oral tablet) esomeprazole (Nexium 20 mg Cap-DR) fluticasone nasal (Flonase 0.05 mg/inh [place]) furosemide (furosemide 20 mg Tab) gabapentin (gabapentin 100 mg Cap) gabapentin (gabapentin 100 mg Cap) guaifenesin (Mucinex 600 mg Tab-ER) levothyroxine (levothyroxine 50 mcg (0.05 mg) Tab) losartan (losartan 25 mg Tab) magnesium oxide (magnesium oxide 500 mg oral tablet) melatonin (melatonin 3 mg Tab) multivitamin with minerals (Multi-Day Plus Minerals) rivaroxaban (Xarelto 20 mg oral tablet) simvastatin (simvastatin 40 mg Tab) spironolactone (spironolactone 25 mg Tab) timolol ophthalmic (Timolol Maleate, Ophthalmic 0.5% preservative-free ophthalmic solution) Procedure History Mastectomy. Discharge Vitals Temperature (Oral) 36.6 ???C Heart Rate (Monitored) 70 Respiratory Rate 16 Blood Pressure 140/81 Weight 99.9 kg What to do next Instructions From Your Doctor Event Name Event Result Discharge Activity Ambulate as tolerated, Activity as tolerated Discharge Diet(s) Fat Modified- Low cholesterol, Low Sodium- 2000 mg Pending Diagnostic Test Results Blood culture, Sputum culture New Follow Up Appointments after Discharge Follow Up with TIKA HUMPHRIES When: Within 3 to 5 days Comments: Call for followup appointment after DC from [facility] [address] [place] [address]- Business (1) Medications What How Much When Instructions Next Dose New albuterol-ipratropium (DuoNeb 2.5 mg-0.5 mg/ 3 mL Soln-Inh) 3 Milliliter Inhalation 4 times a day as needed for Shortness of breath or wheezing As directed New azithromycin (Zithromax 500 mg oral tablet) 1 Tablets By Mouth Every day Duration: 5 Days Printed Prescription Tomorrow 9am New cefdinir (cefdinir 300 mg Cap) 1 Capsules By Mouth Every 12 hours Duration: 5 Days Tolerated IV ceftriaxone in the hospital. Printed Prescription 9pm New guaifenesin (Mucinex 600 mg Tab-ER) 600 Milligram By Mouth 2 times a day Duration: 7 Days Printed Prescription As directed Changed carvedilol (carvedilol 6.25 mg Tab) 1 Tablets By Mouth Every day Tomorrow 9an Changed carvedilol (carvedilol 6.25 mg Tab) 2 Tablets By Mouth At bedtime 9pm Unchanged acetaminophen (acetaminophen 325 mg Tab) 2 Tablets By Mouth Every 6 hours as needed for for pain As directed Unchanged allopurinol (allopurinol 100 mg Tab) 1 Tablets By Mouth Every day Tomorrow 9am Unchanged calcium carbonate (calcium (as carbonate) 600 mg oral tablet) 1 Tablets By Mouth Every day Tomorrow 9am Unchanged cholecalciferol (Vitamin D3 2000 intl units oral Tab) 1 Capsules By Mouth Every day Tomorrow 9am Unchanged empagliflozin (Jardiance 10 mg oral tablet) 1 Tablets By Mouth Once a day (in the morning) Tomorrow 9am Unchanged esomeprazole (Nexium 20 mg Cap-DR) 1 Capsules By Mouth Every day Tomorrow 9am Unchanged fluticasone nasal (Flonase 0.05 mg/ inh [place]) 2 Sprays Nasal Inhalation Every day As dorected Unchanged furosemide (furosemide 20 mg Tab) See instructions 1 tab daily prn for peripheral edema As directed Unchanged gabapentin (gabapentin 100 mg Cap) 2 Capsules By Mouth 2 times a day 3pm Unchanged gabapentin (gabapentin 100 mg Cap) 4 Capsules By Mouth At bedtime 9pm Unchanged levothyroxine (levothyroxine 50 mcg (0.05 mg) Tab) 1 Tablets By Mouth Every day Tomorrow 6:30am Unchanged losartan (losartan 25 mg Tab) 0.5 Tablets By Mouth Every day Tomorrow 9am Unchanged magnesium oxide (magnesium oxide 500 mg oral tablet) 1 Tablets By Mouth Every day Tomorrow 9am Unchanged melatonin (melatonin 3 mg Tab) 1 Tablets By Mouth At bedtime as needed for Insomnia 9pm Unchanged multivitamin with minerals (Multi-Day Plus Minerals) 1 Tablets By Mouth Every day Tomorrow 9am Unchanged rivaroxaban (Xarelto 20 mg oral tablet) 1 Tablets By Mouth Every day Tomorrow 9am Unchanged simvastatin (simvastatin 40 mg Tab) 1 Tablets By Mouth Once a day (at bedtime) 9pm Unchanged spironolactone (spironolactone 25 mg Tab) 0.5 Tablets By Mouth Every day Tomorrow 9am Unchanged timolol ophthalmic (Timolol Maleate, Ophthalmic 0.5% preservative-free ophthalmic solution) 1drop Both eyes 2 times a day morning and evening 9pm Test Results CBC BMP WBC: 12.5 E9/L High (10/18/24 06:22:00) Glucose Lvl: 101 mg/dL (10/18/24 06:22:00) RBC: 3.9 E12/L Low (10/18/24 06:22:00) BUN: 24 mg/dL High (10/18/24 06:22:00) HGB: 11.5 gm/dL Low (10/18/24 06:22:00) Creatinine: 1 mg/dL (10/18/24 06:22:00) Hct: 35.2 % (10/18/24 06:22:00) BUN/Creat Ratio: 24 High (10/18/24 06:22:00) MCV: 91 fL (10/18/24 06:22:00) Sodium Lvl: 134 mmol/L Low (10/18/24 06:22:00) MCH: 29.9 pg (10/18/24 06:22:00) Potassium Lvl: 3.6 mmol/L (10/18/24 06:22:00) MCHC: 32.8 gm/dL (10/18/24 06:22:00) Chloride: 104 mmol/L (10/18/24 06:22:00) RDW: 15.6 % High (10/18/24 06:22:00) CO2: 22 mmol/L (10/18/24 06:22:00) Platelet: 253 E9/L (10/18/24 06:22:00) AGAP: 12 mEq/L (10/18/24 06:22:00) MPV: 8.3 fL (10/18/24 06:22:00) Calcium Lvl: 9.1 mg/dL (10/18/24 06:22:00) Allergies Ceclor (Swelling, Rash) Problems Ongoing - Any problem that you are currently receiving treatment for. Asymptomatic microscopic hematuria Gout Renal cyst Historical - Any problem that you are no longer receiving treatment for. Congestive heart failure GERD - Gastro-esophageal reflux disease Hyperlipidemia Hypertension Hypothyroid Education Materials Community-Acquired Pneumonia, Adult Pneumonia is a lung infection that causes inflammation and the buildup of mucus and fluids in the lungs. This may cause coughing and difficulty breathing. Community-acquired pneumonia is pneumonia that develops in people who are not, and have not recently been, in a hospital or other health care facility. Usually, pneumonia develops as a result of an illness that is caused by a virus, such as the common cold and the flu (influenza). It can also be caused by bacteria or fungi. While the common cold and influenza can pass from person to person (are contagious), pneumonia itself is not considered contagious. What are the causes? This condition may be caused by: ??? Viruses. ??? Bacteria. ??? Fungi. What increases the risk? The following factors may make you more likely to develop this condition: ??? Being over age 65 or having certain medical conditions, such as: ? A long-term (chronic) disease, such as: chronic obstructive pulmonary disease (COPD), asthma, heart failure, diabetes, or kidney disease. ? A condition that increases the risk of breathing in (aspirating) mucus and other fluids from your mouth and nose. ? A weakened body defense system (immune system). ??? Having had your spleen removed (splenectomy). The spleen is the organ that helps fight germs and infections. ??? Not cleaning your teeth and gums well (poor dental hygiene). ??? Using tobacco products. ??? Traveling to places where germs that cause pneumonia are present or being near certain animals or animal habitats that could have germs that cause pneumonia. What are the signs or symptoms? Symptoms of this condition include: ??? A dry cough or a wet (productive) cough. ??? A fever, sweating, or chills. ??? Chest pain, especially when breathing deeply or coughing. ??? Fast breathing, difficulty breathing, or shortness of breath. ??? Tiredness (fatigue) and muscle aches. How is this diagnosed? This condition may be diagnosed based on your medical history or a physical exam. You may also have tests, including: ??? Imaging, such as a chest X-ray or lung ultrasound. ??? Tests of: ? The level of oxygen and other gases in your blood. ? Mucus from your lungs (sputum). ? Fluid around your lungs (pleural fluid). ? Your urine. How is this treated? Treatment for this condition depends on many factors, such as the cause of your pneumonia, your medicines, and other medical conditions that you have. For most adults, pneumonia may be treated at home. In some cases, treatment must happen in a hospital and may include: ??? Medicines that are given by mouth (orally) or through an IV, including: ? Antibiotic medicines, if bacteria caused the pneumonia. ? Medicines that kill viruses (antiviral medicines), if a virus caused the pneumonia. ??? Oxygen therapy. Severe pneumonia, although rare, may require the following treatments: ??? Mechanical ventilation.This procedure uses a machine to help you breathe if you cannot breathe well on your own or maintain a safe level of blood oxygen. ??? Thoracentesis. This procedure removes any buildup of pleural fluid to help with breathing. Follow these instructions at home: Medicines ??? Take [id number] and prescription medicines only as told by your health care provider. ??? Take cough medicine only if you have trouble sleeping. Cough medicine can prevent your body from removing mucus from your lungs. ??? If you were prescribed antibiotics, take them as told by your health care provider. Do not stop taking the antibiotic even if you start to feel better. Lifestyle ??? Do not drink alcohol. ??? Do not use any products that contain nicotine or tobacco. These products include cigarettes, chewing tobacco, and vaping devices, such as e-cigarettes. If you need help quitting, ask your health care provider. ??? Eat a healthy diet. This includes plenty of vegetables, fruits, whole grains, low-fat dairy products, and lean protein. General instructions ??? Rest a lot and get at least 8 hours of sleep each night. ??? Sleep in a partly upright position at night. Place a few pillows under your head or sleep in a reclining chair. ??? Return to your normal activities as told by your health care provider. Ask your health care provider what activities are safe for you. ??? Drink enough fluid to keep your urine pale yellow. This helps to thin the mucus in your lungs. ??? If your throat is sore, gargle with a mixture of salt and water 3???4 times a day or as needed. To make salt water, completely dissolve ?1 tsp (3???6 g) of salt in 1 cup (237 mL) of warm water. ??? Keep all follow-up visits. How is this prevented? You can lower your risk of developing community-acquired pneumonia by: ??? Getting the pneumonia vaccine. There are different types and schedules of pneumonia vaccines. Ask your health care provider which option is best for you. Consider getting the pneumonia vaccine if: ? You are older than 65 years of age. ? You are 19???65 years of age and are receiving cancer treatment, have chronic lung disease, or have other medical conditions that affect your immune system. Ask your health care provider if this applies to you. ??? Getting your influenza vaccine every year. Ask your health care provider which type of vaccine is best for you. ??? Getting regular dental checkups. ??? Washing your hands often with soap and water for at least 20 seconds. If soap and water are not available, use hand outpatient phlebotomist. Contact a health care provider if: ??? You have a fever. ??? You have trouble sleeping because you cannot control your cough with cough medicine. Get help right away if: ??? Your shortness of breath becomes worse. ??? Your chest pain increases. ??? Your sickness becomes worse, especially if you are an older adult or have a weak immune system. ??? You cough up blood. These symptoms may be an emergency. Get help right away. Call 911. ??? Do not wait to see if the symptoms will go away. ??? Do not drive yourself to the hospital. Summary ??? Pneumonia is an infection of the lungs. ??? Community-acquired pneumonia develops in people who have not been in the hospital. It can be caused by bacteria, viruses, or fungi. ??? This condition may be treated with antibiotics or antiviral medicines. ??? Severe pneumonia may require a hospital stay and treatment to help with breathing. This information is not intended to replace advice given to you by your health care provider. Make sure you discuss any questions you have with your health care provider. Document Revised: 06/15/2022 Document Reviewed: 06/15/2022 [employer] Patient Education ??? 2023 [employer]. Common Emergency Awareness Tips IS IT A STROKE? Act FAST and Check for these signs: FACE Does the face look uneven? ARM Does one arm drift down? SPEECH Does their speech sound strange? TIME Call at any sign of stroke Heart Attack Signs Chest discomfort: Most heart attacks involve discomfort in the center of the chest and lasts more than a few minutes, or goes away and comes back. It can feel like uncomfortable pressure, squeezing, fullness or pain. Discomfort in upper body: Symptoms can include pain or discomfort in one or both arms, back, neck, jaw or stomach. Shortness of breath: With or without discomfort. Other signs: Breaking out in a cold sweat, nausea, or lightheaded. Remember, MINUTES DO MATTER. If you experience any of these heart attack warning signs, call to get immediate medical attention! Patient Survey You may receive a survey in the mail asking you about your stay with us. We want to hear from you, please share your experience with us by completing your survey. Thank you for choosing [facility]. Cosme Award Nomination The COSME (Diseases Attacking the Immune SYstem) Award is an international recognition program that honors and celebrates the skillful, compassionate care nurses provide every day. Anyone who experiences or observes amazing care being provided by a nurse is encouraged to submit a nomination. To nominate your nurse, use your smart phone to scan the QR code below. Patient Portal You may access all of your results and other medical record information on our secure patient portal. If you are not signed up for this yet, please contact [employer] at [phone] to get signed up today. Patient Name: YENNY BESS I have received these discharge instructions and my questions have been answered. Patient/Business Support Coordinator Name: Patient/Business Support Coordinator Signature: Relationship to Patient: Witness Name/Signature: Date: DISCHARGE SUMMARY Observed: 10/20/2024 8:56 AM Status: F Source: [facility] Discharge Summary Admission and Discharge Information Admit Date/Time:10/17/2024 11:39 Admitting Physician - JASIEL RICE, Lory Admitting Diagnoses: 2. Sepsis, unspecified organism, 10/20/2024 Discharge Order Date Discharge Patient - Ordered -- 10/20/24 8:49:00 EDT, TCU Discharge Diagnoses 1. Acute respiratory failure with hypoxia, 10/17/2024 2. Sepsis, unspecified organism, Sepsis 4. Bacteremia, 10/19/2024 5. LLL pneumonia, 10/17/2024 6. Urinary tract infection, 10/17/2024 7. Elevated troponin, 10/17/2024 8. Neutrophilic leukocytosis, 10/17/2024 9. Syncope and collapse, 10/17/2024 10. General weakness, 10/17/2024 11. Obese, 10/17/2024 12. Chronic systolic congestive heart failure, 10/17/2024 13. Hypertension, 10/17/2024 14. Hyperlipidemia, 10/17/2024 15. Hypothyroidism, 10/17/2024 16. History of breast cancer, 10/17/2024 17. Paroxysmal atrial fibrillation, 10/17/2024 18. Presence of automatic cardioverter/defibrillator (AICD), 10/17/2024 19. On deep vein thrombosis (DVT) prophylaxis, 10/17/2024 Procedure History Mastectomy. Hospital Course 79-year-old female with history of chronic systolic congestive heart failure status post AICD, paroxysmal atrial fibrillation on Xarelto, hypertension, hyperlipidemia, chronic hyponatremia, hypothyroidism, glaucoma, gout, GERD, obesity, right kidney nodule, history of right breast cancer status post radical mastectomy presented with complaints of fever, chills, urinary incontinence with urgency of several days duration and passing out on the day of admission. She was subsequently admitted to [facility] with acute respiratory failure with hypoxia secondary to left lower lobe pneumonia with pleural effusion, sepsis secondary to left lower lobe pneumonia and clinical urinary tract infection, elevated troponin secondary to demand ischemia, syncope, generalized weakness. The patient also fell from her bed in the hospital and a CT scan of the brain was performed that was negative. X-ray of the right shoulder was performed that showed no acute fractures. She was treated with IV fluid, IV ceftriaxone, IV Zithromax, IV vancomycin. 1 blood culture was positive for Staphylococcus coagulase-negative organism???likely secondary to skin contamination. IV vancomycin was promptly discontinued. Echocardiogram was performed that showed ejection fraction of about 40% in keeping with patient's chronic systolic congestive heart failure. Patient's overall condition improved, acute respiratory failure resolved and oxygen was weaned off. Sepsis resolved. Repeat blood culture was obtained and result is still pending. Leukocytosis trended down. Patient participated well in physical therapy and was found to have need for placement in a senior care facility. Arrangements have been made for this. She was seen prior to discharge and remained in an improved and stable condition for discharge and was subsequently discharged to TCU. She will follow-up with her primary care physician accordingly. Discharge time: 35 minutes. I spent 35 minutes in seeing, evaluating, educating patient on her conditions, coordinating care plan, medication reconciliation, speaking with nursing staff, case management and pharmacy. Discharge medications: Cefdinir 300 mg twice daily x 5 days Zithromax 500 mg daily x 5 days Mucinex 600 mg twice daily x 7 days Physical Exam Vitals & Measurements T: 36.6 ???C(Oral) TMIN: 36.4 ???C(Oral) TMAX: 36.9 ???C(Oral) HR: 70(Monitored) RR: 16 BP: 140/81 SpO2: 95% WT: 99.9 kg General: alert, no acute distress Skin: warm, dry Head: no trauma, normocephalic Neck: Trachea midline, no adenopathy, no tenderness Eye: normal conjunctiva, sclera clear ENMT: TM's clear, oral mucosa moist, no pharyngeal erythema or exudate Cardiovascular: regular rate and rhythm, normal peripheral perfusion Respiratory: Lungs CTA, respirations non labored Chest wall: no deformity. Gastrointestinal: soft, non distended, no tenderness, no guarding. Obese. Bowel sounds intact Back: No tenderness, Normal ROM, Normal alignment. Extremities: no deformity, no trauma Neurological: oriented x 4, LOC appropriate for age, CN II-XII intact, reduced from bilateral lower extremity. Speech is normal. Psychiatric: cooperative, affect appropriate for age, normal judgement, normal psychiatric thoughts. Tests Performed Blood Culture Charcoal -- Results Pending -- Culture Blood Charcoal -- Results Pending -- Vancomycin Level Peak -- Results Pending -- Vancomycin Level Trough -- Results Pending -- CT Abdomen/Pelvis w/ Contrast CT C-Spine w/o Contrast CT Chest w/ Contrast CT Head or Brain w/o Contrast Echo Transthoracic Complete Shoulder XR Complete Right Please visit your patient portal for your results or contact your primary care physician. Discharge Plan Discharge Disposition Discharge To, Anticipated II - [facility] Unit Discharged to - Home with family care Discharge Diet Discharge Diet(s): Fat Modified- Low cholesterol, Low Sodium- 2000 mg (10/20/24 08:47:00) Discharge Medication List Prescriptions cefdinir 300 mg Cap, 300 mg= 1 cap(s), Oral, q12hr Mucinex 600 mg Tab-ER, 600 mg, Oral, BID Nexium 20 mg Cap-DR, 20 mg= 1 cap(s), Oral, Daily Zithromax 500 mg oral tablet, 500 mg= 1 tab(s), Oral, Daily Home acetaminophen 325 mg Tab, 650 mg= 2 tab(s), Oral, q6hr, PRN allopurinol 100 mg Tab, 100 mg= 1 tab(s), Oral, Daily calcium (as carbonate) 600 mg oral tablet, 600 mg= 1 tab(s), Oral, Daily carvedilol 6.25 mg Tab, 12.5 mg= 2 tab(s), Oral, Bedtime carvedilol 6.25 mg Tab, 6.25 mg= 1 tab(s), Oral, Daily DuoNeb 2.5 mg-0.5 mg/3 mL Soln-Inh, 3 mL, Inhalation, QID, PRN Flonase 0.05 mg/inh [place], 0.1 mg= 2 spray(s), Nasal, Daily furosemide 20 mg Tab, See Instructions gabapentin 100 mg Cap, 200 mg= 2 cap(s), Oral, BID gabapentin 100 mg Cap, 400 mg= 4 cap(s), Oral, Bedtime Jardiance 10 mg oral tablet, 10 mg= 1 tab(s), Oral, qAM levothyroxine 50 mcg (0.05 mg) Tab, 50 mcg= 1 tab(s), Oral, Daily losartan 25 mg Tab, 12.5 mg= 0.5 tab(s), Oral, Daily magnesium oxide 500 mg oral tablet, 500 mg= 1 tab(s), Oral, Daily melatonin 3 mg Tab, 3 mg= 1 tab(s), Oral, Bedtime, PRN Multi-Day Plus Minerals, 1 tab(s), Oral, Daily simvastatin 40 mg Tab, 40 mg= 1 tab(s), Oral, Once a day (at bedtime) spironolactone 25 mg Tab, 12.5 mg= 0.5 tab(s), Oral, Daily Timolol Maleate, Ophthalmic 0.5% preservative-free ophthalmic solution, 1drop, Eye-Both, BID Vitamin D3 2000 intl units oral Tab, 2000 International_Unit= 1 cap(s), Oral, Daily Xarelto 20 mg oral tablet, 20 mg= 1 tab(s), Oral, Daily Follow-up With When Contact Information TIKA HUMPHRIES Within 3 to [address] [place] [phone] Business (1) Additional Instructions: Call for followup appointment after DC from SNF Patient Education Community-Acquired Pneumonia, Adult Result Comment: Electronical ly Signed By: Lory WEATHERS MD\.br\Date and Time Signed: 10/20/24 08:56 EDT INPATIENT PATIENT SUMMARY Observed: 09/30 8:48 AM Status: F Source: [facility] Inpatient Patient Summary [place] [id number] Patient Discharge Instructions PERSON INFORMATION Name: YENNY BESS Date of : 1945 Current Date: 10/20/2024 08:48:41 PHYSICIANS Admitting Physician: Lory WEATHERS MD Primary Care Physician: TIKA HUMPHRIES MD PCP Comment: Discharge Diagnosis: 1:Acute respiratory failure with hypoxia; 3:Sepsis; 4:Bacteremia; 5:LLL pneumonia; 6:Urinary tract infection; 7:Elevated troponin; 8:Neutrophilic leukocytosis; 9:Syncope and collapse; 10:General weakness; 11:Obese; 12:Chronic systolic congestive heart failure; 13:Hypertension; 14:Hyperlipidemia; 15:Hypothyroidism; 16:History of breast cancer; 17:Paroxysmal atrial fibrillation; 18:Presence of automatic cardioverter/defibrillator (AICD); 19:On deep vein thrombosis (DVT) prophylaxis Condition at Discharge: Improved YENNY BESS Meghan has been given the following list of follow-up instructions, prescriptions, and patient education materials: PATIENT FOLLOW-UP INFORMATION Diet: Fat Modified- Low cholesterol, Low Sodium- 2000 mg Discharge Activity: Ambulate as tolerated, Activity as tolerated Discharge Restrictions: Wound Care Instructions: Remove Your Dressing In Days Call Your Doctor For: IF UNABLE TO CONTACT YOUR PHYSICIAN AND YOU FEEL IT IS AN EMERGENCY, GO TO THE NEAREST EMERGENCY ROOM OR CALL 911 Home Treatment: Devices/Equipment: None Special Services: Additional Instructions: Primary Care Physician to provide the following pending test results: Blood culture, Sputum culture Follow up: With: Address: When: TIKA HUMPHRIES [address] [facility] [place] [address] Business (1) Within 3 to 5 days Comments: Call for followup appointment after DC from [facility] In the event that this physician does not participate in your insurance network, please consult with your insurance company to find a nearby participating provider. Comment: MARIA ALEJANDRA Mclean SUSAN H, have received the attached patient education materials/instructions and have verbalized understanding: Patient Signature Date Clinican/Nurse Signature Date HERE ARE THE MEDICATION CHANGES THAT OCCURRED DURING YOUR HOSPITAL STAY New Medications Printed Prescriptions azithromycin (Zithromax 500 mg oral tablet) 1 Tablets By Mouth every day for 5 Days. Refills: 0. Last Dose: Next Dose: cefdinir (cefdinir 300 mg Cap) 1 Capsules By Mouth every 12 hours for 5 Days. Tolerated IV ceftriaxone in the hospital.. Refills: 0. Last Dose: Next Dose: guaifenesin (Mucinex 600 mg Tab-ER) 600 Milligram By Mouth 2 times a day for 7 Days. Refills: 0. Last Dose: Next Dose: Other Medications albuterol-ipratropium (DuoNeb 2.5 mg-0.5 mg/3 mL Soln-Inh) 3 Milliliter Inhalation 4 times a day as needed Shortness of breath or wheezing. Last Dose: Next Dose: Medications to Continue Taking That Have Changed Other Medications START: carvedilol (carvedilol 6.25 mg Tab) 2 Tablets By Mouth at bedtime. Last Dose: Next Dose: START: carvedilol (carvedilol 6.25 mg Tab) 1 Tablets By Mouth every day. Last Dose: Next Dose: STOP: carvedilol (carvedilol 12.5 mg Tab) 2 Tablets By Mouth at bedtime. STOP: carvedilol (carvedilol 12.5 mg Tab) 1 Tablets By Mouth every day. Medications to Continue with No Changes Other Medications acetaminophen (acetaminophen 325 mg Tab) 2 Tablets By Mouth every 6 hours as needed for pain. Last Dose: Next Dose: allopurinol (allopurinol 100 mg Tab) 1 Tablets By Mouth every day. Last Dose: Next Dose: calcium carbonate (calcium (as carbonate) 600 mg oral tablet) 1 Tablets By Mouth every day., Pt takes 500 mg at home, not 600 mg. Last Dose: Next Dose: cholecalciferol (Vitamin D3 2000 intl units oral Tab) 1 Capsules By Mouth every day. Last Dose: Next Dose: empagliflozin (Jardiance 10 mg oral tablet) 1 Tablets By Mouth once a day (in the morning). Last Dose: Next Dose: esomeprazole (Nexium 20 mg Cap-DR) 1 Capsules By Mouth every day. Refills: 0. Last Dose: Next Dose: fluticasone nasal (Flonase 0.05 mg/inh [place]) 2 Sprays Nasal Inhalation every day. Last Dose: Next Dose: furosemide (furosemide 20 mg Tab) 1 tab daily prn for peripheral edema. Last Dose: Next Dose: gabapentin (gabapentin 100 mg Cap) 2 Capsules By Mouth 2 times a day. Last Dose: Next Dose: gabapentin (gabapentin 100 mg Cap) 4 Capsules By Mouth at bedtime. Last Dose: Next Dose: levothyroxine (levothyroxine 50 mcg (0.05 mg) Tab) 1 Tablets By Mouth every day. Last Dose: Next Dose: losartan (losartan 25 mg Tab) 0.5 Tablets By Mouth every day. Last Dose: Next Dose: magnesium oxide (magnesium oxide 500 mg oral tablet) 1 Tablets By Mouth every day. Last Dose: Next Dose: melatonin (melatonin 3 mg Tab) 1 Tablets By Mouth at bedtime as needed Insomnia. Last Dose: Next Dose: multivitamin with minerals (Multi-Day Plus Minerals) 1 Tablets By Mouth every day. Last Dose: Next Dose: rivaroxaban (Xarelto 20 mg oral tablet) 1 Tablets By Mouth every day. Last Dose: Next Dose: simvastatin (simvastatin 40 mg Tab) 1 Tablets By Mouth once a day (at bedtime). Last Dose: Next Dose: spironolactone (spironolactone 25 mg Tab) 0.5 Tablets By Mouth every day. Last Dose: Next Dose: timolol ophthalmic (Timolol Maleate, Ophthalmic 0.5% preservative-free ophthalmic solution) 1drop Both eyes 2 times a day. morning and evening. Last Dose: Next Dose: Comment: MEDICATION LIST PROVIDED FOR YOU IS A LIST OF YOUR CURRENT MEDICATIONS. PLEASE CARRY THIS WITH YOU AT ALL TIMES. acetaminophen (acetaminophen 325 mg Tab) 2 Tablets By Mouth every 6 hours as needed for pain. albuterol-ipratropium (DuoNeb 2.5 mg-0.5 mg/3 mL Soln-Inh) 3 Milliliter Inhalation 4 times a day as needed Shortness of breath or wheezing. allopurinol (allopurinol 100 mg Tab) 1 Tablets By Mouth every day. azithromycin (Zithromax 500 mg oral tablet) 1 Tablets By Mouth every day for 5 Days. Refills: 0. calcium carbonate (calcium (as carbonate) 600 mg oral tablet) 1 Tablets By Mouth every day. carvedilol (carvedilol 6.25 mg Tab) 2 Tablets By Mouth at bedtime. carvedilol (carvedilol 6.25 mg Tab) 1 Tablets By Mouth every day. cefdinir (cefdinir 300 mg Cap) 1 Capsules By Mouth every 12 hours for 5 Days. Tolerated IV ceftriaxone in the hospital.. Refills: 0. cholecalciferol (Vitamin D3 2000 intl units oral Tab) 1 Capsules By Mouth every day. empagliflozin (Jardiance 10 mg oral tablet) 1 Tablets By Mouth once a day (in the morning). esomeprazole (Nexium 20 mg Cap-DR) 1 Capsules By Mouth every day. Refills: 0. fluticasone nasal (Flonase 0.05 mg/inh [place]) 2 Sprays Nasal Inhalation every day. furosemide (furosemide 20 mg Tab) 1 tab daily prn for peripheral edema. gabapentin (gabapentin 100 mg Cap) 2 Capsules By Mouth 2 times a day. gabapentin (gabapentin 100 mg Cap) 4 Capsules By Mouth at bedtime. guaifenesin (Mucinex 600 mg Tab-ER) 600 Milligram By Mouth 2 times a day for 7 Days. Refills: 0. levothyroxine (levothyroxine 50 mcg (0.05 mg) Tab) 1 Tablets By Mouth every day. losartan (losartan 25 mg Tab) 0.5 Tablets By Mouth every day. magnesium oxide (magnesium oxide 500 mg oral tablet) 1 Tablets By Mouth every day. melatonin (melatonin 3 mg Tab) 1 Tablets By Mouth at bedtime as needed Insomnia. multivitamin with minerals (Multi-Day Plus Minerals) 1 Tablets By Mouth every day. rivaroxaban (Xarelto 20 mg oral tablet) 1 Tablets By Mouth every day. simvastatin (simvastatin 40 mg Tab) 1 Tablets By Mouth once a day (at bedtime). spironolactone (spironolactone 25 mg Tab) 0.5 Tablets By Mouth every day. timolol ophthalmic (Timolol Maleate, Ophthalmic 0.5% preservative-free ophthalmic solution) 1drop Both eyes 2 times a day. morning and evening. Pharmacy Information: [facility] Comment: PATIENT EDUCATION INFORMATION Instructions: Medication Leaflets: You may receive a survey from [employer] asking you to rate your care experience. Your feedback is important and will help us understand what we do well and how we can improve the quality of care we provide to you, your loved ones and our community. It???s an honor to serve you. Thank you for choosing [facility] INPATIENT CLINICAL SUMMARY Observed: 8:48 AM Status: F Source: [facility] Inpatient Clinical Summary [address] [address] Clinical Summary Person Information: Name: YENNY BESS Age: 79 Years : 1945 Sex: Female PCP: RUFINO RICE, TIKA Marital Status: Race: White Ethnicity: Non- or Language: Peruvian Visit Id: Visit Reason: Dehydration; Back pain; Trauma - major; Fall; Fever > 75 years; Weakness or fatigue; FALL Speciality: Acuity: Enc Type: Inpatient Med Service: Medical Arrival: 10/17/2024 09:08:46 Discharge: Dispo Type: Admitted as IP to this Hosp Address: [address] [place] [address] [address] [facility] [id number] Provider Notes: Diagnosis: 1:Acute respiratory failure with hypoxia; 3:Sepsis; 4:Bacteremia; 5:LLL pneumonia; 6:Urinary tract infection; 7:Elevated troponin; 8:Neutrophilic leukocytosis; 9:Syncope and collapse; 10:General weakness; 11:Obese; 12:Chronic systolic congestive heart failure; 13:Hypertension; 14:Hyperlipidemia; 15:Hypothyroidism; 16:History of breast cancer; 17:Paroxysmal atrial fibrillation; 18:Presence of automatic cardioverter/defibrillator (AICD); 19:On deep vein thrombosis (DVT) prophylaxis Problems Active Asymptomatic microscopic hematuria Renal cyst Gout Smoking Status: Never Smoker Functional Status: Sensory Deficits: History of Falls: Immediately prior to hospitalization Mobility Assistance Prior to Admission: Independent ADLs: Minimal assistance Current Level of Assistance for Self-Care/Mobility: Cognitive Status: Oriented x 3 Allergies Ceclor (Swelling) (Rash) Measurements: Height: 175.26 cm Weight: 99.9 kg Blood Pressure: 140 mmHg / 81 mmHg BMI: 32.65 kg/m2 Procedures No Procedures Performed or Documented Immunizations No Immunizations Documented This Visit Final Med List: acetaminophen (acetaminophen 325 mg Tab) 2 Tablets By Mouth every 6 hours as needed for pain. albuterol-ipratropium (DuoNeb 2.5 mg-0.5 mg/3 mL Soln-Inh) 3 Milliliter Inhalation 4 times a day as needed Shortness of breath or wheezing. allopurinol (allopurinol 100 mg Tab) 1 Tablets By Mouth every day. azithromycin (Zithromax 500 mg oral tablet) 1 Tablets By Mouth every day for 5 Days. Refills: 0. calcium carbonate (calcium (as carbonate) 600 mg oral tablet) 1 Tablets By Mouth every day. carvedilol (carvedilol 6.25 mg Tab) 1 Tablets By Mouth every day. carvedilol (carvedilol 6.25 mg Tab) 2 Tablets By Mouth at bedtime. cefdinir (cefdinir 300 mg Cap) 1 Capsules By Mouth every 12 hours for 5 Days. Tolerated IV ceftriaxone in the hospital.. Refills: 0. cholecalciferol (Vitamin D3 2000 intl units oral Tab) 1 Capsules By Mouth every day. empagliflozin (Jardiance 10 mg oral tablet) 1 Tablets By Mouth once a day (in the morning). esomeprazole (Nexium 20 mg Cap-DR) 1 Capsules By Mouth every day. Refills: 0. fluticasone nasal (Flonase 0.05 mg/inh [place]) 2 Sprays Nasal Inhalation every day. furosemide (furosemide 20 mg Tab) 1 tab daily prn for peripheral edema. gabapentin (gabapentin 100 mg Cap) 2 Capsules By Mouth 2 times a day. gabapentin (gabapentin 100 mg Cap) 4 Capsules By Mouth at bedtime. guaifenesin (Mucinex 600 mg Tab-ER) 600 Milligram By Mouth 2 times a day for 7 Days. Refills: 0. levothyroxine (levothyroxine 50 mcg (0.05 mg) Tab) 1 Tablets By Mouth every day. losartan (losartan 25 mg Tab) 0.5 Tablets By Mouth every day. magnesium oxide (magnesium oxide 500 mg oral tablet) 1 Tablets By Mouth every day. melatonin (melatonin 3 mg Tab) 1 Tablets By Mouth at bedtime as needed Insomnia. multivitamin with minerals (Multi-Day Plus Minerals) 1 Tablets By Mouth every day. rivaroxaban (Xarelto 20 mg oral tablet) 1 Tablets By Mouth every day. simvastatin (simvastatin 40 mg Tab) 1 Tablets By Mouth once a day (at bedtime). spironolactone (spironolactone 25 mg Tab) 0.5 Tablets By Mouth every day. timolol ophthalmic (Timolol Maleate, Ophthalmic 0.5% preservative-free ophthalmic solution) 1drop Both eyes 2 times a day. morning and evening. Care Team Members: Attending Physician: Lory WEATHERS MD Consulting Physician: Referring Physician: Follow up: With: Address: When: TIKA HUMPHRIES [address] [id number] [facility] (1) Within 3 to 5 days Comments: Call for followup appointment after DC from [facility] Patient Education Information: PROGRESS NOTE-PHYSICIAN Observed: 2024 8:43 AM Status: F Source: [facility] Progress Note-Physician Assessment/Plan 79-year-old female with history of chronic systolic congestive heart failure status post AICD, paroxysmal atrial fibrillation, hypertension, hyperlipidemia, chronic hyponatremia, hypothyroidism, glaucoma, gout, GERD, obesity, right kidney nodule, history of breast cancer status post radical mastectomy presented with complaints of fever, chills, urinary incontinence with urgency of several days duration and passing out today and admitted with sepsis and acute respiratory failure with hypoxia, syncope secondary to left lower lobe pneumonia, urinary tract infection, elevated troponin, leukocytosis,. 1 blood culture was positive???secondary to skin contamination. 1. Acute respiratory failure with hypoxia (J96.01: Acute respiratory failure with hypoxia) Acute respiratory failure with hypoxia???secondary to left lower lobe pneumonia with bilateral pleural effusion. Improved. Weaned off oxygen. Oxygen desaturation study prior to discharge. Ordered: 2. Sepsis, unspecified organism, (A41.9: Sepsis, unspecified organism)Sepsis Secondary to left lower lobe pneumonia. Present on admission. Sepsis has resolved. Treated with IV vancomycin, ceftriaxone and Zithromax. Ordered: Blood Culture Charcoal Blood Culture Charcoal Extra Green Li Tube Extra Lav Tube 4. Bacteremia (R78.81: Bacteremia) Staphylococcus coagulase-negative???secondary to skin contamination. Patient has no true bacteremia. Repeat blood culture pending. Ordered: Blood Culture Charcoal Blood Culture Charcoal Extra Green Li Tube Extra Lav Tube 5. LLL pneumonia (J18.9: Pneumonia, unspecified organism) Left lower lobe pneumonia with mild pleural effusion. Treated with IV ceftriaxone, Zithromax, scheduled and as needed nebulizer treatments. Sputum cultures pending. Follow blood cultures. Ordered: 6. Urinary tract infection (N39.0: Urinary tract infection, site not specified) Treating with IV ceftriaxone pending final urine culture result. Ordered: 7. Elevated troponin (R77.8: Other specified abnormalities of plasma proteins) Secondary to demand ischemia from above. Echocardiogram done that shows EF of 40% in keeping with chronic systolic congestive heart failure. 8. Neutrophilic leukocytosis (D72.828: Other elevated white blood cell count) Secondary to above. WBC trended down. 9. Syncope and collapse (R55: Syncope and collapse) Secondary to generalized debility. Continue with physical therapy???recommend SNF. 10. General weakness (R53.1: Weakness) Continue with physical therapy???recommend SNF. 11. Obese (E66.9: Obesity, unspecified) Recommend therapeutic lifestyle modification changes 12. Chronic systolic congestive heart failure (I50.22: Chronic systolic (congestive) heart failure) Stable. Continue on Aldactone. 13. Hypertension (I10: Essential (primary) hypertension) Blood pressure well-controlled. Continue on Coreg. 14. Hyperlipidemia (E78.5: Hyperlipidemia, unspecified) On simvastatin. 15. Hypothyroidism (E03.9: Hypothyroidism, unspecified) Continue on Synthroid. 16. History of breast cancer (Z85.3: Personal history of malignant neoplasm of breast) Status post right mastectomy. Supportive care. 17. Paroxysmal atrial fibrillation (I48.0: Paroxysmal atrial fibrillation) Status post pacemaker placement. Continue Xarelto. 18. Presence of automatic cardioverter/defibrillator (AICD) (Z95.810: Presence of automatic (implantable) cardiac defibrillator) Supportive care. 19. On deep vein thrombosis (DVT) prophylaxis (Z79.899: Other prison (current) drug therapy) Xarelto. Disposition: To senior care facility today pending final blood culture result. I discussed the diagnosis and plan of care with the patient at the bedside. Moderate level of MDM based on addressing above issues. This documentation was transcribed using voice recognition software. Several attempts were made to ensure accuracy. However inadvertent computerized property and casualty insurance agent errors may be present. Lory Weathers. Hospitalist. Orders: Referral to [facility] Sputum Culture Subjective Seen and examined. Feels better with improving strength. Offers no new complaints today. Objective Vitals & Measurements T: 36.6 ???C(Oral) TMIN: 36.4 ???C(Oral) TMAX: 36.9 ???C(Oral) HR: 70(Monitored) RR: 16 BP: 140/81 SpO2: 95% WT: 99.9 kg Intake & Output This visit (24 hour periods starting at 07:00 EDT) 10/20/24 * 10/19/24 10/18/24 Total Summary Intake mL -- 170 446.94 Output mL -- -- -- Fluid Balance -- 170 446.94 Intake (5) Oral Intake mL -- 120 -- Sodium Chloride 0.45% intravenous solution 1,000 mL mL -- -- 137.67 Sodium Chloride 0.9%, azithromycin mL -- -- 257.27 Sodium Chloride 0.9%, ceftriaxone mL -- 50 50 ondansetron mL -- -- 2 Total -- 170 446.94 Output (0) Counts (2) Stool Count -- 1 1 Urine Count -- 5 -- * This column has not completed the indicated time period. Physical Exam General: alert, no acute distress, comfortable in a chair on room air. Skin: warm, dry Head: no trauma, normocephalic Neck: Trachea midline, no adenopathy, no tenderness Eye: normal conjunctiva, sclera clear ENMT: TM's clear, oral mucosa moist, no pharyngeal erythema or exudate Cardiovascular: regular rate and rhythm, normal peripheral perfusion Respiratory: Lungs CTA, respirations non labored Chest wall: no deformity. Gastrointestinal: soft, non distended, no tenderness, no guarding. Obese. Bowel sounds intact. Back: No tenderness, Normal ROM, Normal alignment. Extremities: no deformity, no trauma Neurological: oriented x 4, LOC appropriate for age, CN II-XII intact, reduced from bilateral lower extremity. Speech is normal. Psychiatric: cooperative, affect appropriate for age, normal judgement, normal psychiatric thoughts. Lab Results No qualifying data available. Diagnostic Results (10/18/2024 09:39 EDT Echo Transthoracic Complete) * Final Report * Reason For Exam ELEVATED TROPONIN;[place] [address] Adult Echocardiogram Report Name: YENNY BESS Study Date: 10/18/2024 08:52 AM BP: 131/78 mmHg Patient Location: [id number] HR: 70 : 1945 Gender: Female Height: 69 in Age: 79 yrs Ethnicity: [facility] Weight: 231 lb Reason For Study: ELEVATED TROPONIN;Evaluate Wall Motion BSA: 2.2 m2 History: CHF,AICD, HTN, AFIB Ordering Physician: Lory WEATHERS Performed By: Penny Holliday, JUAN Interpretation Summary Dilated LV with moderate LV systolic dysfunction EF 40%. Normal RV. Biatrial enlargement. Mild-mod MR Mod-sev TR Mild PA hypertension. Pseudonormal diastolic filling pattern. Pacemaker RA/RV. There is mild to moderate tricuspid regurgitation. [1] Problem List/Past Medical History Ongoing Asymptomatic microscopic hematuria Gout Renal cyst Historical Congestive heart failure GERD - Gastro-esophageal reflux disease Hyperlipidemia Hypertension Hypothyroid Medications Inpatient acetaminophen 325 mg Tab, 650 mg= 2 tab(s), Oral, q6hr, PRN Al hydroxide/Mg hydroxide/simethicone 200 mg-200 mg-20 mg/5 mL oral suspension, 30 mL, Oral, q6hr, PRN allopurinol 100 mg Tab, 100 mg= 1 tab(s), Oral, Daily Ambien 5 mg Tab, 5 mg= 1 tab(s), Oral, Bedtime, PRN azithromycin, 500 mg= 2 tab(s), Oral, Daily Benadryl 25 mg Cap, 25 mg= 1 cap(s), Oral, q6hr, PRN calcium 500 mg tablets, 500 mg= 1 tab(s), Oral, Daily carvedilol, 6.25 mg= 1 tab(s), Oral, Daily carvedilol, 12.5 mg= 2 tab(s), Oral, Bedtime ceftriaxone additive + Sodium Chloride 0.9% intravenous solution 50 mL DuoNeb 2.5 mg-0.5 mg/3 mL Soln-Inh, 3 mL, Inhalation, QID, PRN gabapentin 100 mg Cap, 400 mg= 4 cap(s), Oral, Bedtime gabapentin 100 mg Cap, 200 mg= 2 cap(s), Oral, BID hydrALAZINE 20 mg/mL Inj, 10 mg= 0.5 mL, IV Push, q6hr, PRN Jardiance 10 mg oral tablet, 10 mg= 1 tab(s), Oral, qAM levothyroxine 50 mcg (0.05 mg) Tab, 50 mcg= 1 tab(s), Oral, Daily magnesium oxide 400 mg Tab, 400 mg= 1 tab(s), Oral, Daily melatonin 3 mg Tab, 3 mg= 1 tab(s), Oral, Bedtime, PRN Milk of Magnesia 8% Susp-Oral, 30 mL, Oral, q6hr, PRN morphine 2 mg/mL Inj, 2 mg= 1 mL, IV Push, q4hr, PRN Pantoprazole [address] Tab, 40 mg= 1 tab(s), Oral, Daily Senokot 8.6 mg Tab, 17.2 mg= 2 tab(s), Oral, BID, PRN simvastatin 40 mg Tab, 40 mg= 1 tab(s), Oral, Once a day (at bedtime) Sodium Chloride 0.9% IV Silvia 1000 mL 1,000 mL, 1000 mL, IV spironolactone 25 mg Tab, 12.5 mg= 0.5 tab(s), Oral, Daily Therapeutic Multiple Vitamins with Minerals Tab, 1 tab(s), Oral, Daily timolol Opth 0.5% [place] 15 mL, 1 drop(s), Eye-Both, BID vancomycin + Generic Diluent 300 mL vancomycin IV PHARMACY TO DOSE, PHARMACY TO DOSE, IV, As Directed Vitamin D3 1000 intl units (25 mcg) Tab, 25 mcg= 1 tab(s), Oral, Daily Xarelto 20 mg oral tablet, 20 mg= 1 tab(s), Oral, Daily Zofran 4 mg/2 mL Injection, 4 mg= 2 mL, IV Push, q6hr, PRN Home acetaminophen 325 mg Tab, 650 mg= 2 tab(s), Oral, q6hr, PRN allopurinol 100 mg Tab, 100 mg= 1 tab(s), Oral, Daily calcium (as carbonate) 600 mg oral tablet, 600 mg= 1 tab(s), Oral, Daily carvedilol 6.25 mg Tab, 12.5 mg= 2 tab(s), Oral, Bedtime carvedilol 6.25 mg Tab, 6.25 mg= 1 tab(s), Oral, Daily Flonase 0.05 mg/inh [place], 0.1 mg= 2 spray(s), Nasal, Daily furosemide 20 mg Tab, See Instructions gabapentin 100 mg Cap, 200 mg= 2 cap(s), Oral, BID gabapentin 100 mg Cap, 400 mg= 4 cap(s), Oral, Bedtime Jardiance 10 mg oral tablet, 10 mg= 1 tab(s), Oral, qAM levothyroxine 50 mcg (0.05 mg) Tab, 50 mcg= 1 tab(s), Oral, Daily losartan 25 mg Tab, 12.5 mg= 0.5 tab(s), Oral, Daily magnesium oxide 500 mg oral tablet, 500 mg= 1 tab(s), Oral, Daily melatonin 3 mg Tab, 3 mg= 1 tab(s), Oral, Bedtime, PRN Multi-Day Plus Minerals, 1 tab(s), Oral, Daily Nexium 20 mg Cap-DR, 20 mg= 1 cap(s), Oral, Daily simvastatin 40 mg Tab, 40 mg= 1 tab(s), Oral, Once a day (at bedtime) spironolactone 25 mg Tab, 12.5 mg= 0.5 tab(s), Oral, Daily Timolol Maleate, Ophthalmic 0.5% preservative-free ophthalmic solution, 1drop, Eye-Both, BID Vitamin D3 2000 intl units oral Tab, 2000 International_Unit= 1 cap(s), Oral, Daily Xarelto 20 mg oral tablet, 20 mg= 1 tab(s), Oral, Daily [1] Echo Transthoracic Complete; Emmanuel RICE, Dylan Castañeda 10/18/2024 09:39 EDT Result Comment: Electronical ly Signed By: JASIEL RICE, Lory\.br\Date and Time Signed: 10/20/24 08:44 EDT EXTRA LAV Collected: 10/20/2024 7:39 AM Status: F Source: [facility] TYPE CODE TESTS RESULT OUT OF RANGE REFERENCE UNITS LAB CD:[id number](L OINC) WB Tube Collected Yes Unknown Performed By: #### [id number] #### [facility] [address] [place] [address] C BLOOD CHARCOAL Observed: 10/20/2024 7:39 AM Status: F Source: [facility] Microbiology PROCEDURE: Blood Culture Charcoal [R1] SOURCE: Blood BODY SITE: Arm L COLLECTED DATE/TIME: 10/20/2024 07:39 EDT RECEIVED DATE/TIME: 10/20/2024 08:23 EDT START DATE/TIME: 10/20/2024 08:23 EDT FREE TEXT SOURCE: left forearm JASIEL RICE, Lory WEATHERS MD, Lory FINAL REPORTS Final Report [] Verified Date/Time: 10/27/2024 09:00 EDT No growth at 7 days. Performing Locations R1: This test was performed at: [facility], [address] [place] [address], [id number], Performed By: #### [id number] #### [facility] [address] [place] [id number] C BLOOD CHARCOAL Observed: 10/20/2024 7:01 AM Status: F Source: [facility] Microbiology PROCEDURE: Blood Culture Charcoal [R1] SOURCE: Blood BODY SITE: Arm L COLLECTED DATE/TIME: 10/20/2024 07:01 EDT RECEIVED DATE/TIME: 10/20/2024 08:23 EDT START DATE/TIME: 10/20/2024 08:23 EDT FREE TEXT SOURCE: left forearm JASIEL RICE, Danyfo JASIEL RICE, Lory FINAL REPORTS Final Report [] Verified Date/Time: 10/27/2024 09:00 EDT No growth at 7 days. Performing Locations R1: This test was performed at: [facility], [address] [place] [address], [id number], Performed By: #### [id number] #### [facility] [address] [place] [id number] [employer] EDUCATION VIDEO Observed: 2024 6:14 PM Status: F Source: [facility] GetWell Learning Participant s Patient GetWell Understands Education Yes GetWell Education Video Preventing Falls in the Hospital [employer] EDUCATION VIDEO Observed: 2024 6:10 PM Status: F Source: [facility] GetWell Education Video Avoiding Infections in the Hospital [employer] Learning Participants Patient GetWell Understands Education Yes PROGRESS NOTE-PHYSICIAN Observed: 2024 9:19 AM Status: F Source: [facility] Progress Note-Physician Assessment/Plan 79-year-old female with history of chronic systolic congestive heart failure status post AICD, paroxysmal atrial fibrillation, hypertension, hyperlipidemia, chronic hyponatremia, hypothyroidism, glaucoma, gout, GERD, obesity, right kidney nodule, history of breast cancer status post radical mastectomy presented with complaints of fever, chills, urinary incontinence with urgency of several days duration and passing out today and admitted with sepsis with bacteremia and acute respiratory failure with hypoxia, syncope secondary to left lower lobe pneumonia, urinary tract infection, elevated troponin, leukocytosis, 1. Acute respiratory failure with hypoxia (J96.01: Acute respiratory failure with hypoxia) Acute respiratory failure with hypoxia???secondary to left lower lobe pneumonia with bilateral pleural effusion. Improved. Respiratory panel PCR???negative. Treating underlying disease process. Weaned off oxygen. Oxygen desaturation study prior to discharge. Ordered: [facility] Care/Day Moderate 35 Minutes [id number] 2. Sepsis (A41.9: Sepsis, unspecified organism) Secondary to left lower lobe pneumonia. Present on admission. Sepsis has resolved. Treating with IV ceftriaxone and Zithromax. Ordered: Blood Culture Charcoal Blood Culture Charcoal [facility] Care/Day Moderate 35 Minutes [id number] 3. Bacteremia (R78.81: Bacteremia) Gram-positive cocci bacteremia???secondary to left lower lobe pneumonia. Present on admission. Treating with IV vancomycin pending final blood culture results. Will repeat blood culture in AM. Ordered: Blood Culture Charcoal Blood Culture Charcoal [facility] Care/Day Moderate 35 Minutes 18245 4. LLL pneumonia (J18.9: Pneumonia, unspecified organism) Left lower lobe pneumonia with mild pleural effusion. Treating with IV ceftriaxone, Zithromax, scheduled and as needed nebulizer treatments. Follow cultures. Ordered: [facility] Care/Day Moderate 35 Minutes [id number] 5. Urinary tract infection (N39.0: Urinary tract infection, site not specified) Continue on IV ceftriaxone pending final urine culture result. Ordered: [facility] Care/Day Moderate 35 Minutes 95242 [facility] Care/Day Moderate 35 Minutes [id number] 6. Elevated troponin (R77.8: Other specified abnormalities of plasma proteins) Secondary to demand ischemia from above. Echocardiogram done???result pending Ordered: [facility] Care/Day Moderate 35 Minutes [id number] 7. Neutrophilic leukocytosis (D72.828: Other elevated white blood cell count) Secondary to above. WBC trended down. Ordered: [facility] Care/Day Moderate 35 Minutes [id number] 8. Syncope and collapse (R55: Syncope and collapse) Secondary to generalized debility. Continue with physical therapy???recommend SNF. 9. General weakness (R53.1: Weakness) Continue with physical therapy???recommend SNF. 10. Obese (E66.9: Obesity, unspecified) Recommend therapeutic lifestyle modification changes. 11. Chronic systolic congestive heart failure (I50.22: Chronic systolic (congestive) heart failure) Stable. Continue on Aldactone. 12. Hypertension (I10: Essential (primary) hypertension) Blood pressure well-controlled. Continue on Coreg. 13. Hyperlipidemia (E78.5: Hyperlipidemia, unspecified) On simvastatin. 14. Hypothyroidism (E03.9: Hypothyroidism, unspecified) Continue on Synthroid. 15. History of breast cancer (Z85.3: Personal history of malignant neoplasm of breast) Status post right mastectomy. Supportive care. 16. Paroxysmal atrial fibrillation (I48.0: Paroxysmal atrial fibrillation) Status post pacemaker placement. Continue Xarelto. 17. Presence of automatic cardioverter/defibrillator (AICD) (Z95.810: Presence of automatic (implantable) cardiac defibrillator) Supportive care. 18. 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 Disposition: To senior care facility early next week pending repeat blood culture results. I discussed the diagnosis and plan of care with the patient at the bedside. Moderate level of MDM based on addressing above issues. This documentation was transcribed using voice recognition software. Several attempts were made to ensure accuracy. However inadvertent computerized property and casualty insurance agent errors may be present. Lory Weathers. Hospitalist. Orders: azithromycin, 500 mg = 2 tab(s), Tab, Oral, Daily, Start date 10/19/24 9:00:00 EDT potassium chloride, 20 mEq = 1 tab(s), Tab-ER, Oral, Once, Stop date 10/18/24 15:00:00 EDT, Routine, Start date 10/18/24 15:00:00 EDT, 10/18/24 14:03:00 EDT spironolactone, 12.5 mg = 0.5 tab(s), Tab, Oral, Daily, Routine, Start date 10/19/24 9:00:00 EDT, 10/18/24 12:21:00 EDT vancomycin, PHARMACY TO DOSE, Injection, IV, As Directed, Routine, Start date 10/18/24 16:42:00 EDT vancomycin + Generic Diluent 300 mL, 1,500 mg = 300 mL, Soln-IV, IV Piggyback, q24hr, Start date 10/18/24 17:00:00 EDT, 200 mL/hr, Infuse over 90 minute(s) Echo Transthoracic Complete Referral to Resource Center Referral to Resource Center Vancomycin Level Peak Vancomycin Level Trough Subjective Seen and examined. Offers no new complaints today. Her strength is improving. Denies any fever or chills. Objective Vitals & Measurements T: 36.9 ???C(Oral) TMIN: 36.8 ???C(Oral) TMAX: 37.9 ???C(Oral) HR: 70(Monitored) RR: 18 BP: 134/73 SpO2: 95% WT: 99.6 kg Intake & Output This visit (24 hour periods starting at 07:00 EDT) 10/19/24 * 10/18/24 10/17/24 Total Summary Intake mL -- 446.94 2,252.38 Output mL -- -- -- Fluid Balance -- 446.94 2,252.38 Intake (6) Generic Diluent, acetaminophen mL -- -- 100 Sodium Chloride 0.45% intravenous solution 1,000 mL mL -- 137.67 852.38 Sodium Chloride 0.9% mL -- -- 1,000 Sodium Chloride 0.9%, azithromycin mL -- 257.27 250 Sodium Chloride 0.9%, ceftriaxone mL -- 50 50 ondansetron mL -- 2 -- Total -- 446.94 2,252.38 Output (0) Counts (1) Stool Count -- 1 -- * This column has not completed the indicated time period. Physical Exam General: alert, no acute distress, comfortable in bed with head of bed elevated. On room air. Skin: warm, dry Head: no trauma, normocephalic Neck: Trachea midline, no adenopathy, no tenderness Eye: normal conjunctiva, sclera clear ENMT: TM's clear, oral mucosa moist, no pharyngeal erythema or exudate Cardiovascular: regular rate and rhythm, normal peripheral perfusion Respiratory: Lungs CTA, respirations non labored Chest wall: no deformity., Status post right mastectomy. Gastrointestinal: soft, non distended, no tenderness, no guarding. Obese. Bowel sounds intact. Back: No tenderness, Normal ROM, Normal alignment. Extremities: no deformity, no trauma Neurological: oriented x 4, LOC appropriate for age, CN II-XII intact, speech is normal. Reduced ROM bilateral lower extremity. Psychiatric: cooperative, affect appropriate for age, normal judgement, normal psychiatric thoughts. Lab Results No qualifying data available. Problem List/Past Medical History Ongoing Asymptomatic microscopic hematuria Gout Renal cyst Historical Congestive heart failure GERD - Gastro-esophageal reflux disease Hyperlipidemia Hypertension Hypothyroid Medications Inpatient acetaminophen 325 mg Tab, 650 mg= 2 tab(s), Oral, q6hr, PRN Al hydroxide/Mg hydroxide/simethicone 200 mg-200 mg-20 mg/5 mL oral suspension, 30 mL, Oral, q6hr, PRN allopurinol 100 mg Tab, 100 mg= 1 tab(s), Oral, Daily Ambien 5 mg Tab, 5 mg= 1 tab(s), Oral, Bedtime, PRN azithromycin, 500 mg= 2 tab(s), Oral, Daily Benadryl 25 mg Cap, 25 mg= 1 cap(s), Oral, q6hr, PRN calcium 500 mg tablets, 500 mg= 1 tab(s), Oral, Daily carvedilol, 6.25 mg= 1 tab(s), Oral, Daily carvedilol, 12.5 mg= 2 tab(s), Oral, Bedtime ceftriaxone additive + Sodium Chloride 0.9% intravenous solution 50 mL DuoNeb 2.5 mg-0.5 mg/3 mL Soln-Inh, 3 mL, Inhalation, QID, PRN gabapentin 100 mg Cap, 400 mg= 4 cap(s), Oral, Bedtime gabapentin 100 mg Cap, 200 mg= 2 cap(s), Oral, BID hydrALAZINE 20 mg/mL Inj, 10 mg= 0.5 mL, IV Push, q6hr, PRN Jardiance 10 mg oral tablet, 10 mg= 1 tab(s), Oral, qAM levothyroxine 50 mcg (0.05 mg) Tab, 50 mcg= 1 tab(s), Oral, Daily magnesium oxide 400 mg Tab, 400 mg= 1 tab(s), Oral, Daily melatonin 3 mg Tab, 3 mg= 1 tab(s), Oral, Bedtime, PRN Milk of Magnesia 8% Susp-Oral, 30 mL, Oral, q6hr, PRN morphine 2 mg/mL Inj, 2 mg= 1 mL, IV Push, q4hr, PRN Pantoprazole [address] Tab, 40 mg= 1 tab(s), Oral, Daily Senokot 8.6 mg Tab, 17.2 mg= 2 tab(s), Oral, BID, PRN simvastatin 40 mg Tab, 40 mg= 1 tab(s), Oral, Once a day (at bedtime) Sodium Chloride 0.9% IV Silvia 1000 mL 1,000 mL, 1000 mL, IV spironolactone 25 mg Tab, 12.5 mg= 0.5 tab(s), Oral, Daily Therapeutic Multiple Vitamins with Minerals Tab, 1 tab(s), Oral, Daily timolol Opth 0.5% Silvia 15 mL, 1 drop(s), Eye-Both, BID vancomycin + Generic Diluent 300 mL vancomycin IV PHARMACY TO DOSE, PHARMACY TO DOSE, IV, As Directed Vitamin D3 1000 intl units (25 mcg) Tab, 25 mcg= 1 tab(s), Oral, Daily Xarelto 20 mg oral tablet, 20 mg= 1 tab(s), Oral, DailyZofran 4 mg/2 mL Injection, 4 mg= 2 mL, IV Push, q6hr, PRN Home acetaminophen 325 mg Tab, 650 mg= 2 tab(s), Oral, q6hr, PRN allopurinol 100 mg Tab, 100 mg= 1 tab(s), Oral, Daily calcium (as carbonate) 600 mg oral tablet, 600 mg= 1 tab(s), Oral, Daily carvedilol 6.25 mg Tab, 12.5 mg= 2 tab(s), Oral, Bedtime carvedilol 6.25 mg Tab, 6.25 mg= 1 tab(s), Oral, Daily Flonase 0.05 mg/inh [place], 0.1 mg= 2 spray(s), Nasal, Daily furosemide 20 mg Tab, See Instructions gabapentin 100 mg Cap, 200 mg= 2 cap(s), Oral, BID gabapentin 100 mg Cap, 400 mg= 4 cap(s), Oral, Bedtime Jardiance 10 mg oral tablet, 10 mg= 1 tab(s), Oral, qAM levothyroxine 50 mcg (0.05 mg) Tab, 50 mcg= 1 tab(s), Oral, Daily losartan 25 mg Tab, 12.5 mg= 0.5 tab(s), Oral, Daily magnesium oxide 500 mg oral tablet, 500 mg= 1 tab(s), Oral, Daily melatonin 3 mg Tab, 3 mg= 1 tab(s), Oral, Bedtime, PRN Multi-Day Plus Minerals, 1 tab(s), Oral, Daily Nexium 20 mg Cap-DR, 20 mg= 1 cap(s), Oral, Daily simvastatin 40 mg Tab, 40 mg= 1 tab(s), Oral, Once a day (at bedtime) spironolactone 25 mg Tab, 12.5 mg= 0.5 tab(s), Oral, Daily Timolol Maleate, Ophthalmic 0.5% preservative-free ophthalmic solution, 1drop, Eye-Both, BID Vitamin D3 2000 intl units oral Tab, 2000 International_Unit= 1 cap(s), Oral, Daily Xarelto 20 mg oral tablet, 20 mg= 1 tab(s), Oral, Daily Result Comment: Electronical ly Signed By: JASIEL RICE, Lory\.br\Date and Time Signed: 10/19/24 09:20 EDT PROGRESS NOTE - PHARMACY Observed: 10/18 4:50 PM Status: F Source: [facility] Progress Note - Pharmacy Vancomycin Pharmacy to Dose Consult Note Indication: Empiric Treatment Goal Range: AUC/QUOC: 400 - 600 RECOMMENDATIONS/PLAN: Pharmacy consulted for vancomycin dosing for YENNY BESS, a 79 Years old, Female who is being treated with vancomycin for bacteremia. 1. VANCO STATUS: Vancomycin therapy is still active, today is day 1 of treatment. Patient is receiving Vancomycin 1500mg IV q24hr. 2. VANCO LEVEL: No Vancomycin level has been drawn for this dosing regimen. 3. DOSING RECS: Initial Dose:1500mg q24hr 4. NEXT LEVEL: The next paired levels are scheduled. Peak at 1730 on 10/20 and Trough at 1400 on 10/21. 5. MRSA NASAL SWAB? A MRSA Nasal Swab is not appropriate at this time. We will follow patient renal function, vancomycin levels and doses with you during the course of therapy. Additional recommendations will appear in follow up notes. If you have any questions, please contact the pharmacy at extension [phone]. Age: 79 Years Allergies: Allergies (1) Active Severity Reaction Ceclor Rash, Swelling Weight: Last Documented Weight and Type of Scale Used Last Documented Weight Weight Measured: 105.4 kg (10/18/24 05:00:00) Type of Scale Used Weight Measured Type of Scale: Bed Scale (digital) (10/17/24 14:05:00) Height: Last Documented Height/Length Last Documented Height/Length Height/Length Measured: 175.26 cm (10/17/24 14:27:00) CrCl: 59.19mL/min SCr: 1mg/dL Labs: WBC: 12.5 E9/L High (10/18/24 06:22:00) RBC: 3.9 E12/L Low (10/18/24 06:22:00) HGB: 11.5 gm/dL Low (10/18/24 06:22:00) Hct: 35.2 % (10/18/24 06:22:00) MCV: 91 fL (10/18/24 06:22:00) MCH: 29.9 pg (10/18/24 06:22:00) MCHC: 32.8 gm/dL (10/18/24 06:22:00) RDW: 15.6 % High (10/18/24 06:22:00) Platelet: 253 E9/L (10/18/24 06:22:00) MPV: 8.3 fL (10/18/24 06:22:00) Neutro Auto: 88.2 % High (10/18/24 06:22:00) Lymph Auto: 3.5 % Low (10/18/24 06:22:00) [place] Auto: 8.1 % (10/18/24 06:22:00) Eos Auto: 0 % (10/18/24 06:22:00) Basophil Auto: 0.2 % (10/18/24 06:22:00) Neutro Absolute: 11 E9/L High (10/18/24 06:22:00) Lymph Absolute: 0.4 E9/L Low (10/18/24 06:22:00) [place] Absolute: 1 E9/L (10/18/24 06:22:00) Eos Absolute: 0 E9/L (10/18/24 06:22:00) Basophil Absolute: 0 E9/L (10/18/24 06:22:00) Glucose Lvl: 101 mg/dL (10/18/24 06:22:00) BUN: 24 mg/dL High (10/18/24 06:22:00) Creatinine: 1 mg/dL (10/18/24 06:22:00) eGFR: 58 mL/min/1.73 m2 Low (10/18/24 06:22:00) BUN/Creat Ratio: 24 High (10/18/24 06:22:00) Sodium Lvl: 134 mmol/L Low (10/18/24 06:22:00) Potassium Lvl: 3.6 mmol/L (10/18/24 06:22:00) Chloride: 104 mmol/L (10/18/24 06:22:00) CO2: 22 mmol/L (10/18/24 06:22:00) AGAP: 12 mEq/L (10/18/24 06:22:00) Calcium Lvl: 9.1 mg/dL (10/18/24 06:22:00) ABO/Rh Retype Interp: A POS (10/18/24 06:22:00) CODING QUERY Observed: 10/18/2024 11:08 AM Status: C Source: [facility] Coding Query From: Russell Zelaya RN To: JASIEL RICE, [facility]; Sent: 10/18/2024 11:08:53 EDT ! Subject: Coding Query Due Date/Time: 10/19/2024 11:08:00 EDT Caller Name: YENNY BESS; Caller Number: Meghan , Documentation in the medical record indicates that this patient has been admitted with or diagnosed as having: pneumonia The following is also documented in the medical record: Temp 10/17 39.0 BP: 01/17 96/42 MAP 60 WBC 10/17 16.5 Respirations > 20/min: 10/17 RR 27, 22-> placed on O2 Lactic acid: 1.4 bili 1.3, MAP <70 = sofa 2 ED- Differential Diagnosis: Sepsis, acute lower urinary tract infection, pneumonia, closed head injury, cervical spine injury, lumbar spine injury, rib fracture, solid organ injury, electrolyte imbalance Based on your medical judgment, can you further clarify the cause, if any, of these systemic findings? [___]Sepsis, unspecified [___]Other: Present on Admission [___] Y = Diagnosis was present at time of inpatient admission [___] N = Diagnosis was not present at time of inpatient admission In responding to this request, please exercise your independent professional judgement. The fact that a question is asked does not imply that any particular answer is desired or expected. Thank you![email or web address] [id number] From: JASIEL RICE, Lory To: Nathalie RN, Russell Graves; Sent: 10/18/2024 11:13:06 EDT Subject: RE: Coding Query Caller Name: YENNY BESS; Caller Number: Meghan , M Thank you PROGRESS NOTE-PHYSICIAN Observed: 2024 9:52 AM Status: C Source: [facility] Progress Note-Physician Assessment/Plan 79-year-old female with history of chronic systolic congestive heart failure status post AICD, paroxysmal atrial fibrillation, hypertension, hyperlipidemia, chronic hyponatremia, hypothyroidism, glaucoma, gout, GERD, obesity, right kidney nodule, history of breast cancer status post radical mastectomy presented with complaints of fever, chills, urinary incontinence with urgency of several days duration and passing out today and admitted with acute respiratory failure with hypoxia, syncope secondary to left lower lobe pneumonia, urinary tract infection, elevated troponin, leukocytosis, 1. Acute respiratory failure with hypoxia (J96.01: Acute respiratory failure with hypoxia) Acute respiratory failure with hypoxia???secondary to left lower lobe pneumonia with bilateral pleural effusion. Improved. Respiratory panel PCR???negative. Treating underlying disease process. Wean off oxygen. Oxygen desaturation study prior to discharge. Ordered: [facility] Care/Day Moderate 35 Minutes 00179 2. LLL pneumonia (J18.9: Pneumonia, unspecified organism) Left lower lobe pneumonia with mild pleural effusion. Treating with IV ceftriaxone, Zithromax, scheduled and as needed nebulizer treatments. Follow cultures. Ordered: [facility] Care/Day Moderate 35 Minutes 42565 3. Urinary tract infection (N39.0: Urinary tract infection, site not specified) Treating with IV ceftriaxone???pending final urine culture result. Ordered: [facility] Care/Day Moderate 35 Minutes 27509 4. Elevated troponin (R77.8: Other specified abnormalities of plasma proteins) Secondary to demand ischemia from above. Obtain echocardiogram. Patient denies any anginal symptoms. Ordered: [facility] Care/Day Moderate 35 Minutes [id number] 5. Neutrophilic leukocytosis (D72.828: Other elevated white blood cell count) Secondary to above infection. WBC trending down. Follow cultures. Ordered: [facility] Care/Day Moderate 35 Minutes [id number] 6. Syncope and collapse (R55: Syncope and collapse) Secondary to generalized debility. Patient with recent fall. CT scan brain shows no acute pathology, right shoulder x-ray shows no acute fracture. Seen by physical therapist???May require SNF at discharge. Ordered: Physical Therapy Evaluate Patient, Develop a Plan of Care and Implement Plan 7. General weakness (R53.1: Weakness) Secondary to generalized debility. Seen by physical therapist???May require SNF at discharge. 8. Obese (E66.9: Obesity, unspecified) Recommend therapeutic lifestyle modification changes. 9. Chronic systolic congestive heart failure (I50.22: Chronic systolic (congestive) heart failure) Clinically stable. Diuretics temporarily on hold. We will resume in a.m. and when appropriate. 10. Hypertension (I10: Essential (primary) hypertension) Blood pressure fairly controlled. Continue Coreg. 11. Hyperlipidemia (E78.5: Hyperlipidemia, unspecified) On simvastatin. 12. Hypothyroidism (E03.9: Hypothyroidism, unspecified) On Synthroid. 13. History of breast cancer (Z85.3: Personal history of malignant neoplasm of breast) Status post 14. Paroxysmal atrial fibrillation (I48.0: Paroxysmal atrial fibrillation) Status post pacemaker placement. Continue on Xarelto. 15. Presence of automatic cardioverter/defibrillator (AICD) (Z95.810: Presence of automatic (implantable) cardiac defibrillator) Supportive care. 16. 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 Disposition: Continue current treatment in the hospital pending significant improvement and placement in SNF. I discussed the diagnosis and plan of care with the patient at the bedside. Moderate level of MDM based on addressing above issues. This documentation was transcribed using voice recognition software. Several attempts were made to ensure accuracy. However inadvertent computerized property and casualty insurance agent errors may be present. Lory Weathers. Hospitalist. Orders: acetaminophen, 650 mg = 2 tab(s), Tab, Oral, q6hr PRN Pain, Routine, Start date 10/17/24 14:40:00 EDT, 10/17/24 14:40:00 EDT Al hydroxide/Mg hydroxide/simethicone, 30 mL, Susp-Oral, Oral, q6hr PRN Indigestion, Routine, Start date 10/17/24 14:40:00 EDT albuterol-ipratropium, 3 mL, Soln-Inh, Inhalation, QID PRN Shortness of breath or wheezing, Routine, Start date 10/17/24 14:40:00 EDT allopurinol, 100 mg = 1 tab(s), Tab, Oral, Daily, Routine, Start date 10/18/24 9:00:00 EDT, 10/17/24 15:10:00 EDT azithromycin + Sodium Chloride 0.9% intravenous solution 250 mL, 500 mg = 1 EA, Injection, IV Piggyback, Daily, Routine, Start date 10/18/24 9:00:00 EDT, 250 mL/hr, Infuse over 60 minute(s) calcium carbonate, 500 mg = 1 tab(s), Tab-Chew, Oral, Daily, Routine, Start date 10/18/24 9:00:00 EDT carvedilol, 6.25 mg = 1 tab(s), Tab, Oral, Daily for 30 day(s), Stop date 11/17/24 8:59:00 EDT, Start date 10/18/24 9:00:00 EDT carvedilol, 12.5 mg = 2 tab(s), Tab, Oral, Bedtime for 30 day(s), Stop date 11/16/24 20:59:00 EDT, Start date 10/17/24 21:00:00 EDT ceftriaxone + Sodium Chloride 0.9% intravenous solution 50 mL, 1,000 mg = 1 EA, Injection, IV Piggyback, Daily, Routine, Start date 10/18/24 9:00:00 EDT, 100 mL/hr, Infuse over 30 minute(s) cholecalciferol, 25 mcg = 1 tab(s), Tab, Oral, Daily, Routine, Start date 10/18/24 9:00:00 EDT, 10/17/24 15:14:00 EDT diphenhydrAMINE, 25 mg = 1 cap(s), Cap, Oral, q6hr PRN Itching, Routine, Start date 10/17/24 14:40:00 EDT, 10/17/24 14:40:00 EDT empagliflozin, 10 mg = 1 tab(s), Tab, Oral, qAM, Routine, Start date 10/18/24 7:30:00 EDT, 10/17/24 15:12:00 EDT gabapentin, 200 mg = 2 cap(s), Cap, Oral, BID, Routine, Start date 10/18/24 9:00:00 EDT gabapentin, 400 mg = 4 cap(s), Cap, Oral, Bedtime, Routine, Start date 10/17/24 21:00:00 EDT, 10/17/24 15:13:00 EDT hydrALAZINE, 10 mg = 0.5 mL, Injection, IV Push, q6hr PRN Other (see comment), Routine, Start date 10/17/24 14:40:00 EDT, 10/17/24 14:40:00 EDT levothyroxine, 50 mcg = 1 tab(s), Tab, Oral, Daily, Routine, Start date 10/18/24 6:30:00 EDT, 10/17/24 15:13:00 EDT magnesium hydroxide, 30 mL, Susp-Oral, Oral, q6hr PRN Constipation, Routine, Start date 10/17/24 14:40:00 EDT magnesium oxide, 400 mg = 1 tab(s), Tab, Oral, Daily, Routine, Start date 10/18/24 9:00:00 EDT, 10/17/24 15:13:00 EDT melatonin, 3 mg = 1 tab(s), Tab, Oral, Bedtime PRN Insomnia, Routine, Start date 10/17/24 15:13:00 EDT, 10/17/24 15:13:00 EDT morphine, 2 mg = 1 mL, Injection, IV Push, q4hr PRN Pain for 5 day(s), Stop date 10/22/24 14:39:00 EDT, Routine, Start date 10/17/24 14:40:00 EDT, 10/17/24 14:40:00 EDT multivitamin with minerals, 1 tab(s), Tab, Oral, Daily, Routine, Start date 10/18/24 9:00:00 EDT ondansetron, 4 mg = 2 mL, Injection, IV Push, q6hr PRN Nausea, Routine, Start date 10/17/24 14:40:00 EDT, 10/17/24 14:40:00 EDT pantoprazole, 40 mg = 1 tab(s), Tab-DR, Oral, Daily, Routine, Start date 10/18/24 9:00:00 EDT, 10/17/24 15:12:00 EDT rivaroxaban, 20 mg = 1 tab(s), Tab, Oral, Daily, Routine, Start date 10/18/24 9:00:00 EDT, 10/17/24 15:13:00 EDT senna, 17.2 mg = 2 tab(s), Tab, Oral, BID PRN Other (see comment), Routine, Start date 10/17/24 14:40:00 EDT, 10/17/24 14:40:00 EDT simvastatin, 40 mg = 1 tab(s), Tab, Oral, Once a day (at bedtime), Routine, Start date 10/17/24 21:00:00 EDT, 10/17/24 15:13:00 EDT Sodium Chloride 0.45% intravenous solution 1,000 mL, 1,000 mL, IV, 75 mL/hr, for 1 dose(s), Stop date 10/18/24 4:00:00 EDT, Routine, Start date 10/17/24 14:43:00 EDT, 13.3 hour(s), Total volume (mL): 1,000, 100 kg, 2.2, m2 timolol ophthalmic, 1 drop(s), Soln-Opth, Eye-Both, BID, Routine, Start date 10/17/24 21:00:00 EDT zolpidem, 5 mg = 1 tab(s), Tab, Oral, Bedtime PRN Sleep, Routine, Start date 10/17/24 14:40:00 EDT, 10/17/24 14:40:00 EDT ABO/Rh Retype Ambulate with Assistance Basic Metabolic Panel Cardiac Diet Cardiac Monitoring CBC w/ Auto Diff CT Head or Brain w/o Contrast Echo Transthoracic Complete eGFR Oxygen Protocol Physical Therapy Additional Tx Precautions Pulse Oximetry Rapid [place] Antigen [place] Respiratory Panel by PCR Resuscitation Status - Full Sputum Culture Troponin 6 Hr. Vital Signs Weight XR Shoulder Complete Right Subjective Seen and examined. Feels slightly better today with improving strength. Denies any more falls. Objective Vitals & Measurements T: 37.7 ???C(Oral) TMIN: 36.9 ???C(Oral) TMAX: 39.4 ???C(Oral) HR: 72(Monitored) RR: 18 BP: 144/74 SpO2: 95% HT: 175.26 cm WT: 105.4 kg Intake & Output This visit (24 hour periods starting at 07:00 EDT) 10/18/24 * 10/17/24 10/16/24 Total Summary Intake mL -- 2,179.99 -- Output mL -- -- -- Fluid Balance -- 2,179.99 -- Intake (5) Generic Diluent, acetaminophen mL -- 100 -- Sodium Chloride 0.45% intravenous solution 1,000 mL mL -- 779.99 -- Sodium Chloride 0.9% mL -- 1,000 -- Sodium Chloride 0.9%, azithromycin mL -- 250 -- Sodium Chloride 0.9%, ceftriaxone mL -- 50 -- Total -- 2,179.99 -- Output (0) Counts (0) * This column has not completed the indicated time period. Physical Exam General: alert, no acute distress, laying in bed on room air. Skin: warm, dry Head: no trauma, normocephalic Neck: Trachea midline, no adenopathy, no tenderness Eye: normal conjunctiva, sclera clear ENMT: TM's clear, oral mucosa moist, no pharyngeal erythema or exudate Cardiovascular: regular rate and rhythm, normal peripheral perfusion Respiratory: Lungs CTA, respirations non labored Chest wall: no deformity. Status post right mastectomy. Gastrointestinal: soft, non distended, no tenderness, no guarding. Obese. Bowel sounds intact. Back: No tenderness, Normal ROM, Normal alignment. Extremities: no deformity, no trauma Neurological: oriented x 4, LOC appropriate for age, CN II-XII intact, reduced strength bilateral lower extremity. Speech is normal. Psychiatric: cooperative, affect appropriate for age, normal judgement, normal psychiatric thoughts. Lab Results WBC: 12.5 E9/L High (10/18/24 06:22:00) RBC: 3.9 E12/L Low (10/18/24 06:22:00) HGB: 11.5 gm/dL Low (10/18/24 06:22:00) Hct: 35.2 % (10/18/24 06:22:00) MCV: 91 fL (10/18/24 06:22:00) MCH: 29.9 pg (10/18/24 06:22:00) MCHC: 32.8 gm/dL (10/18/24 06:22:00) RDW: 15.6 % High (10/18/24 06:22:00) Platelet: 253 E9/L (10/18/24 06:22:00) MPV: 8.3 fL (10/18/24 06:22:00) Neutro Auto: 88.2 % High (10/18/24 06:22:00) Lymph Auto: 3.5 % Low (10/18/24 06:22:00) [place] Auto: 8.1 % (10/18/24 06:22:00) Eos Auto: 0 % (10/18/24 06:22:00) Basophil Auto: 0.2 % (10/18/24 06:22:00) Neutro Absolute: 11 E9/L High (10/18/24 06:22:00) Lymph Absolute: 0.4 E9/L Low (10/18/24 06:22:00) [place] Absolute: 1 E9/L (10/18/24 06:22:00) Eos Absolute: 0 E9/L (10/18/24 06:22:00) Basophil Absolute: 0 E9/L (10/18/24 06:22:00) Glucose Lvl: 101 mg/dL (10/18/24 06:22:00) BUN: 24 mg/dL High (10/18/24 06:22:00) Creatinine: 1 mg/dL (10/18/24 06:22:00) eGFR: 58 mL/min/1.73 m2 Low (10/18/24 06:22:00) BUN/Creat Ratio: 24 High (10/18/24 06:22:00) Sodium Lvl: 134 mmol/L Low (10/18/24 06:22:00) Potassium Lvl: 3.6 mmol/L (10/18/24 06:22:00) Chloride: 104 mmol/L (10/18/24 06:22:00) CO2: 22 mmol/L (10/18/24 06:22:00) AGAP: 12 mEq/L (10/18/24 06:22:00) Calcium Lvl: 9.1 mg/dL (10/18/24 06:22:00) Troponin HS: 54.9 pg/mL Critical (10/17/24 15:47:00) U Amph Scr: NEGATIVE (10/17/24 11:34:00) U Christelle Scr: NEGATIVE (10/17/24 11:34:00) U Benzodia Scr: NEGATIVE (10/17/24 11:34:00) U Cannab Scr: NEGATIVE (10/17/24 11:34:00) U Cocaine Scr: NEGATIVE (10/17/24 11:34:00) U Opiate Scr: NEGATIVE (10/17/24 11:34:00) U PCP Scr: NEGATIVE (10/17/24 11:34:00) U Fentanyl: NEGATIVE (10/17/24 11:34:00) UA Spec Desc: Clean Catch (10/17/24 11:34:00) UA Color: Yellow (10/17/24 11:34:00) UA Clarity: Turbid Abnormal (10/17/24 11:34:00) UA Spec Grav: >1.050 (10/17/24 11:34:00) UA pH: 5.5 (10/17/24 11:34:00) UA Protein: 2+ Abnormal (10/17/24 11:34:00) UA Glucose: 4+ Abnormal (10/17/24 11:34:00) UA Ketones: 1+ Abnormal (10/17/24 11:34:00) UA Bili: Negat (10/17/24 11:34:00) UA Blood: 2+ Abnormal (10/17/24 11:34:00) UA Nitrite: Negat (10/17/24 11:34:00) UA Urobilinogen: Negat (10/17/24 11:34:00) UA Leuk Est: 250 Fam/uL Abnormal (10/17/24 11:34:00) UA RBC: 21-30 Abnormal (10/17/24 11:34:00) UA Squam Epithelial: 9-10 (10/17/24 11:34:00) UA Renal Epi: 0-2 Abnormal (10/17/24 11:34:00) UA WBC: 16-25 Abnormal (10/17/24 11:34:00) UA Bacteria: 1+ Abnormal (10/17/24 11:34:00) UA Mucous: Trace (10/17/24 11:34:00) UA Transitional Epithelial: 0-2 (10/17/24 11:34:00) Rapid COVID Ag: Not Detected (10/17/24 14:47:00) Rapid COV Int NEG Ctl: Pass (10/17/24 14:47:00) Rapid COV Int POS Ctl: Pass (10/17/24 14:47:00) ABO/Rh Retype Interp: A POS (10/18/24 06:22:00) Adenovirus: Not Detected (10/17/24 14:47:00) B. holmesii: Not Detected (10/17/24 14:47:00) B. parapertussis/bronchiseptica: Not Detected (10/17/24 14:47:00) B. pertussis: Not Detected (10/17/24 14:47:00) Human Metapneumovirus: Not Detected (10/17/24 14:47:00) Influenza A: Not Detected (10/17/24 14:47:00) Influenza A (subtype H1): Not Detected (10/17/24 14:47:00) Influenza A (subtype H3): Not Detected (10/17/24 14:47:00) Influenza B: Not Detected (10/17/24 14:47:00) Parainfluenza 1: Not Detected (10/17/24 14:47:00) Parainfluenza 2: Not Detected (10/17/24 14:47:00) Parainfluenza 3: Not Detected (10/17/24 14:47:00) Parainfluenza 4: Not Detected (10/17/24 14:47:00) Rhinovirus: Not Detected (10/17/24 14:47:00) RSV A: Not Detected (10/17/24 14:47:00) RSV B: Not Detected (10/17/24 14:47:00) Diagnostic Results (10/17/2024 19:52 EDT XR Shoulder Complete Right) * Final Report * Reason For Exam Fall POWERSCRIBE REPORT IMPRESSION: No acute osseous findings. Other findings as discussed. EXAMINATION/TECHNIQUE: XR Shoulder Complete Right HISTORY: Fall with right shoulder pain. COMPARISON: CT chest 10/17/2024. [1] (10/17/2024 19:[address] Head or Brain w/o Contrast) * Final Report * Reason For Exam Other (please specify) POWERSCRIBE REPORT IMPRESSION: No acute intracranial process. HISTORY: Unwitnessed fall. TECHNIQUE: Serial axial images without IV contrast were obtained from the vertex to the foramen magnum, with sagittal and coronal reconstructions. All CT scans at this facility use dose modulation, iterative reconstruction, and/or weight based dosing when appropriate to reduce radiation dose to as low as reasonably achievable. COMPARISON: CT on 10/17/2024. [2] Problem List/Past Medical History Ongoing Asymptomatic microscopic hematuria Gout Renal cyst Historical Congestive heart failure GERD - Gastro-esophageal reflux disease Hyperlipidemia Hypertension Hypothyroid Medications Inpatient acetaminophen 325 mg Tab, 650 mg= 2 tab(s), Oral, q6hr, PRN Al hydroxide/Mg hydroxide/simethicone 200 mg-200 mg-20 mg/5 mL oral suspension, 30 mL, Oral, q6hr, PRN allopurinol 100 mg Tab, 100 mg= 1 tab(s), Oral, Daily Ambien 5 mg Tab, 5 mg= 1 tab(s), Oral, Bedtime, PRN azithromycin additive + Sodium Chloride 0.9% intravenous solution 250 mL Benadryl 25 mg Cap, 25 mg= 1 cap(s), Oral, q6hr, PRN calcium 500 mg tablets, 500 mg= 1 tab(s), Oral, Daily carvedilol, 6.25 mg= 1 tab(s), Oral, Daily carvedilol, 12.5 mg= 2 tab(s), Oral, Bedtime ceftriaxone additive + Sodium Chloride 0.9% intravenous solution 50 mL DuoNeb 2.5 mg-0.5 mg/3 mL Soln-Inh, 3 mL, Inhalation, QID, PRN gabapentin 100 mg Cap, 400 mg= 4 cap(s), Oral, Bedtime gabapentin 100 mg Cap, 200 mg= 2 cap(s), Oral, BID hydrALAZINE 20 mg/mL Inj, 10 mg= 0.5 mL, IV Push, q6hr, PRN Jardiance 10 mg oral tablet, 10 mg= 1 tab(s), Oral, qAM levothyroxine 50 mcg (0.05 mg) Tab, 50 mcg= 1 tab(s), Oral, Daily magnesium oxide 400 mg Tab, 400 mg= 1 tab(s), Oral, Daily melatonin 3 mg Tab, 3 mg= 1 tab(s), Oral, Bedtime, PRN Milk of Magnesia 8% Susp-Oral, 30 mL, Oral, q6hr, PRN morphine 2 mg/mL Inj, 2 mg= 1 mL, IV Push, q4hr, PRN Pantoprazole [address] Tab, 40 mg= 1 tab(s), Oral, Daily Senokot 8.6 mg Tab, 17.2 mg= 2 tab(s), Oral, BID, PRN simvastatin 40 mg Tab, 40 mg= 1 tab(s), Oral, Once a day (at bedtime) Sodium Chloride 0.9% IV Silvia 1000 mL 1,000 mL, 1000 mL, IV Therapeutic Multiple Vitamins with Minerals Tab, 1 tab(s), Oral, Daily timolol Opth 0.5% Silvia 15 mL, 1 drop(s), Eye-Both, BID Vitamin D3 1000 intl units (25 mcg) Tab, 25 mcg= 1 tab(s), Oral, Daily Xarelto 20 mg oral tablet, 20 mg= 1 tab(s), Oral, Daily Zofran 4 mg/2 mL Injection, 4 mg= 2 mL, IV Push, q6hr, PRN Home acetaminophen 325 mg Tab, 650 mg= 2 tab(s), Oral, q6hr, PRN allopurinol 100 mg Tab, 100 mg= 1 tab(s), Oral, Daily calcium (as carbonate) 600 mg oral tablet, 600 mg= 1 tab(s), Oral, Daily carvedilol 6.25 mg Tab, 12.5 mg= 2 tab(s), Oral, Bedtime carvedilol 6.25 mg Tab, 6.25 mg= 1 tab(s), Oral, Daily Flonase 0.05 mg/inh [place], 0.1 mg= 2 spray(s), Nasal, Daily furosemide 20 mg Tab, See Instructions gabapentin 100 mg Cap, 200 mg= 2 cap(s), Oral, BID gabapentin 100 mg Cap, 400 mg= 4 cap(s), Oral, Bedtime Jardiance 10 mg oral tablet, 10 mg= 1 tab(s), Oral, qAM levothyroxine 50 mcg (0.05 mg) Tab, 50 mcg= 1 tab(s), Oral, Daily losartan 25 mg Tab, 12.5 mg= 0.5 tab(s), Oral, Daily magnesium oxide 500 mg oral tablet, 500 mg= 1 tab(s), Oral, Daily melatonin 3 mg Tab, 3 mg= 1 tab(s), Oral, Bedtime, PRN Multi-Day Plus Minerals, 1 tab(s), Oral, Daily Nexium 20 mg Cap-DR, 20 mg= 1 cap(s), Oral, Daily simvastatin 40 mg Tab, 40 mg= 1 tab(s), Oral, Once a day (at bedtime) spironolactone 25 mg Tab, 12.5 mg= 0.5 tab(s), Oral, Daily Timolol Maleate, Ophthalmic 0.5% preservative-free ophthalmic solution, 1drop, Eye-Both, BID Vitamin D3 2000 intl units oral Tab, 2000 International_Unit= 1 cap(s), Oral, Daily Xarelto 20 mg oral tablet, 20 mg= 1 tab(s), Oral, Daily [1] XR Shoulder Complete Right; Jose Aguilar MD 10/17/2024 19:52 EDT [2] CT Head or Brain w/o Contrast; Jose Aguilar MD 10/17/2024 19:45 EDT - Sepsis???secondary to pneumonia and UTI???present on admission. Sepsis is resolving. Treated with IV fluid, IV Rocephin and Zithromax. Follow cultures. 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 Weathers. Discussed therapy recommenations for SNF vs HH. Patient states lives with boyfriend and he helps her when needed, Unsure regarding SNF and prefers HH [place], agreeable to [facility] and referral to resource center, Aware of plan to stay in hospital today and inpatient status reviewed, medicare rights reviewed. . PCP verified and insurance information reviewed and DME discussed. Contact information provided and white board updated. CRM returned to pt room after discussing with Dr. janak Toribio. Patient with fall yesterday and prefers SNF at [place] for safety. Patient is now agreeable to SNF, Discused local options, and quality metrix reviewed. Pt refers. 1. [facility]CU and 2. [facility], referral will be sent, Dr. Weathers updated, Anticipate DC 10/20. Patient declines need to call family at this time. Medicare rights reviewed. Patient is accepted to TCU for SNF, and plan to DC 10/20 if medically stable. PASSR completed. Result Comment: Electronical ly Signed By: Indigo WONG, Tiara\.gisela\Date and Time Signed: 10/18/24 13:39 EDT ECHO TRANSTHORACIC COMPLETE Observed: 9:39 AM Status: F Source: [facility] Echocardiology Procedure Exam Date/Time Accession # Ordering Dr. Diaz Transthoracic 10/18/2024 09:39 EDT [id number] JASIEL RICE, [facility] Complete CPT code 01247 [id number] Reason for Exam (Echo Transthoracic Complete) ELEVATED TROPONIN;Evaluate Wall Motion Report [facility] [address] [place] [address] Adult Echocardiogram Report Name: YENNY BESS Study Date: 10/18/2024 08:52 AM BP: 131/78 mmHg Patient Location: [address] [place] [address] HR: 70 : 1945 Gender: Female Height: 69 in Age: 79 yrs Ethnicity: T Weight: 231 lb Reason For Study: ELEVATED TROPONIN;Evaluate Wall Motion BSA: 2.2 m2 History: CHF,AICD, HTN, AFIB Ordering Physician: Lory WEATHERS Performed By: Penny Holliday RDCS Interpretation Summary Dilated LV with moderate LV systolic dysfunction EF 40%. Normal RV. Biatrial enlargement. Mild-mod MR Mod-sev TR Mild PA hypertension. Pseudonormal diastolic filling pattern. Pacemaker RA/RV. There is mild to moderate tricuspid regurgitation. Procedure A complete two-dimensional transthoracic echocardiogram was performed (2D, M- mode, spectral and color flow Doppler). Study quality is good. I WMSI = 1.25 % Normal = 75 Segments Size X - Cannot 2 - 1-2 small Interpret 1 - Normal Hypokinetic 3 - Akinetic 4 - Dyskinetic3-5 moderate 5 - Aneurysmal 6-14 large 15-16 diffuse Echocardiology Report Left Ventricle There is normal left ventricular wall thickness. The left ventricle is mild to moderate dilated. Ejection Fraction = 40- 45%. Paradoxical septal motion secondary to RV pacemaker. Left Atrium The left atrium is mildly dilated. Right Atrium There is a catheter/pacemaker lead seen in the RA appendage. The right atrium is moderately dilated. Right Ventricle The right ventricular systolic function is normal. RV apex pacemaker. The right ventricular wall motion is normal. Aortic Valve The aortic valve is trileaflet. No aortic regurgitation. There is no aortic stenosis. Mitral Valve Mild thickening of the mitral valve leaflets. There is mild to moderate mitral regurgitation. No mitral valve stenosis. Tricuspid Valve Structurally normal tricuspid valve. Mild pulmonary hypertension. There is mild to moderate tricuspid regurgitation. Pulmonic Valve No evidence of stenosis. There is no pulmonic valve regurgitation. Arteries The aortic root is normal in size. Normal ascending aorta. Pulmonary artery diameter is normal. Venous The inferior vena cava is normal in size, and collapses normally with respiration. Effusion There is no pericardial effusion. MMode/2D Measurements & Calculations RVDd: 3.3 cm LVIDd: 5.4 cm FS: 52.3 % Ao root diam: 2.8 cm IVSd: 0.82 cm LVIDs: 2.6 cm EDV(Teich): 144.2 ml Ao root area: 6.1 cm2 LVPWd: 1.1 cm ESV(Teich): 24.6 ml LA dimension: 4.3 cm EF(Teich): 83.0 % asc Aorta Diam: 3.2 cm LVOT diam: 2.2 cm LVLd ap4: 7.2 cm EDV(MOD-sp2): 110.0 ml LVOT area: 3.8 cm2 EDV(MOD-sp4): 64.9 ml ESV(MOD-sp2): 33.9 ml LVLs ap4: 6.7 cm EF(MOD-sp2): 69.2 % ESV(MOD-sp4): 34.5 ml EF(MOD-sp4): 46.8 % SV(MOD-sp4): 30.4 ml TAPSE: 2.4 cm Ao Sinus of Valsalva: 2.7 cm Ao Sinotubular Junction: 2.8 cm Echocardiology Report IVC Diam: 2.1 cm RA A4Cs_phl: 21.6 cm2 RV Base_phl: 4.0 cm RVIDd/LVIDd: 0.61 RV Length_phl: 8.8 cm RV Mid_phl: 3.6 cm EF (MOD-bp): 58.5 % LA Vol Index: 38.6 ml/m2 Doppler Measurements & Calculations MV E max gretchen: 90.0 cm/sec MV dec time: 0.21 sec Ao V2 max: 160.0 cm/sec LV V1 max P.3 mmHg Ao max P.2 mmHg LV V1 max: 75.7 cm/sec NATHAN(V,D): 1.8 cm2 TR max gretchen: 346.1 cm/sec RAP systole: 3.0 mmHg AV VR: 0.47 TR max P.9 mmHg RVSP(TR): 50.9 mmHg FINAL REPORT Dictated: 10/18/2024 8:52 am Dylan Benitez MD Signed (Electronic Signature): 10/18/2024 12:13 pm Signed by: Dylan Benitez MD Transcribed by: [facility] Technologist: MARIANNA Rahman SPUTUM Observed: 10/18/2024 9:36 AM Status: F Source: [facility] Microbiology PROCEDURE: Sputum Culture [R1] SOURCE: Sputum BODY SITE: COLLECTED DATE/TIME: 10/18/2024 09:36 EDT RECEIVED DATE/TIME: 10/18/2024 10:32 EDT START DATE/TIME: 10/18/2024 10:33 EDT FREE TEXT SOURCE: Lory WEATHERS MD, MD, Lory FINAL REPORTS Final Report [] Verified Date/Time: 10/20/2024 11:49 EDT 1+ Normal upper respiratory yashira isolated STAINS Gram Stain Report [] Verified Date/Time: 10/19/2024 13:02 EDT 1+ White Blood Cells 1+ epithelial cells 1+ Gram Positive Cocci 1+ Gram Positive Rods Occasional Yeast Performing Locations R1: This test was performed at: [facility], [address] [place] [address], [address] , , Performed By: #### [id number] # ### [facility] [address] [place] [address] CBC W/ AUTO DIFF Collected: 6:22 AM Status: F Source: [facility] TYPE CODE TESTS RESULT OUT OF RANGE REFERENCE UNITS LAB [id number](LOINC) WBC 12.5 High 4.0-11.0 E9/L LAB [id number](LOINC) RBC 3.9 Low 4.3-5.9 E12/L LAB [id number](LOINC) HGB 11.5 Low 12.0-16.0 gm/dL LAB [id number](LOINC) Hct 35.2 Normal 34.0-46.0 % LAB [id number](LOINC) RDW 15.6 High 10.9-14.2 % LAB [id number](LOINC) MCH 29.9 Normal 27.0-34.0 pg LAB [id number](LOINC) MCHC 32.8 Normal 31.4-36.0 gm/dL LAB [id number](LOINC) MCV 91.0 Normal 80.0-100.0 fL LAB [id number](LOINC) MPV 8.3 Normal 6.4-10.8 fL LAB [id number](LOINC) Platelet 253.0 Normal 150.0-500.0 E9/ L LAB [id number](LOINC) Neutro Auto 88.2 High 36.0-75.0 % LAB [id number](LOINC) Lymph Auto 3.5 Low 14.0-50.0 % LAB [id number](LOINC) [place] Auto 8.1 Normal 4.0-14.0 % LAB [id number](LOINC) Eos Auto 0.0 Normal 0.0-8.0 % LAB [id number](LOINC) Basophil Auto 0.2 Normal 0.0-2.0 % LAB [id number](LOINC) Neutro Absolute 11.0 High 2.0-7.5 E9/L LAB [id number](LOINC) Lymph Absolute 0.4 Low 1.0-4.0 E9/L LAB [id number](LOINC) [place] Absolute 1.0 Normal 0.2-1.0 E9 /L LAB [id number](LOINC) Eos Absolute 0.0 Normal 0.0-0.5 E9/ L LAB [id number](LOINC) Basophil Absolute 0.0 Normal 0.0-0.2 E9/L Performed By: #### [id number] # ### [facility] [address] [place] [address] EGFR Collected: 6:22 AM Status: F Source: [facility] TYPE CODE TESTS RESULT OUT OF RANGE REFERENCE UNITS LAB [id number](INC) eGFR 58 Low >=59 mL/min/1 .7 3 m2 Performed By: #### [id number] #### [facility] [address] [place] [address] BMP Collected: 10/18/2024 6:22 AM Status: F Source: [facility] TYPE CODE TESTS RESULT OUT OF RANGE REFERENCE UNITS LAB [id number](LOINC) Glucose Lvl 101 Normal 55-199 mg/d L LAB [id number](LOINC) BUN 24 High 5-21 mg/dL LAB 1727515(LOINC) Creatinine 1.0 Normal 0.5-1.3 mg/dL LAB [id number]([facility]) BUN/Creat Ratio 24 High 10-20 No Units LAB [id number]([facility]) Calcium Lvl 9.1 Normal 8.9-11.1 mg/ dL LAB 78374935([facility]) Sodium Lvl 134 Low 135-145 mmol/ L LAB 63080950([facility]) Potassium Lvl 3.6 Normal 3.5-5.3 mm ol/L LAB 53903102([facility]) Chloride 104 Normal 101-111 mmol/L LAB [id number]([facility]) CO2 22 Normal 21-31 mmol/L LAB [id number]([facility]) AGAP 12 Normal 6-16 mEq/L Performed By: #### [id number] # ### [facility] [address] [place] [address] ABO/RH RETYPE Collected: 10/18/2024 6:22 AM Status: F Source: [facility] TYPE CODE TESTS RESULT OUT OF RANGE REFERENCE UNITS LAB [id number]([facility]) ABO/Rh Retype Interp A POS Unknown Performed By: #### [id number] #### [facility] [address] [place] [address] ED NOTE-PHYSICIAN Observed: 10/17/2024 8:28 PM Status: F Source: [facility] ED Note-Physician Basic Information Time Seen: Indy Vasquez PA-C 10/17/2024 09:10 Chief Complaint weakness, passing out at home History of Present Illness This patient reports fevers and chills for the last 3 days. She was not feeling well today and was going to get up to go use the restroom. She states when she stood up she passed out. She denies hitting her head. She states by the time she ended up on the floor, she was awake. She denies any injury. She could not get herself up and her boyfriend called 911. Patient's biggest complaint is of extreme fatigue. She states she is very thirsty. She feels very weak. She has pain to her low back. Review of Systems Constitutional: Denies weight loss. + fevers, chills, sweats, malaise Eyes: Denies visual changes, eye pain, double vision, scotomas, floaters ENT: Denies runny nose, epistaxis, sinus pain, ear pain, ringing in ears, tooth ache, sore throat, pain with swallowing Cardiovascular: Denies chest pain, shortness of breath, orthopnea, edema, palpitations, loss of consciousness, claudication Respiratory: Denies cough, sputum production, wheezing, hemoptysis, shortness of breath, dyspnea on exertion Gastrointestinal: Denies abdominal pain, unintentional weight loss, difficulty swallowing, indigestion, bloating, cramping, loss of appetite, nausea, vomiting, diarrhea, constipation, hematochezia, melena Genitourinary: Denies any incontinence of urine, dysuria, hematuria, nocturia, polyuria, hesitancy, frequency, urgency, burning Musculoskeletal: Denies joint pain, morning stiffness, joint swelling, decreased range of motion, crepitus Integumentary: Denies any pruritus, rashes, lesions, wounds, petechiae Neurologic: Denies any changes in sight, smell, hearing, taste, seizures, headache, paresthesia, numbness, weakness, balance disturbance Psychiatric denies any depression, change in sleep patterns, anxiety, difficulty concentrating, paranoia, anhedonia, lack of energy, dilip Hematologic/lymphatic: Denies any purpura, petechiae, excessive bleeding, bruising Physical Exam Vitals & Measurements T: 39.4 ???C(Oral) HR: 73(Monitored) RR: 18 BP: 166/97 SpO2: 92% HT: 175.26 cm WT: 100.3 kg BMI: 32.65 Trauma exam Vital signs reviewed Primary survey Airway intact Lung sounds clear and equal bilaterally Pulses full and equal to carotid, femoral, radial, dorsalis pedis bilaterally Heart regular rate and rhythm Skin warm, dry, pink GCS 15 Movement and sensation intact to all extremities No visible evidence of trauma Secondary survey General: GCS 15, alert HEENT: Head atraumatic, facial bones stable: Eyes normal inspection, PERRL: No evidence of oropharyngeal trauma; no blood in the nares; tympanic membranes intact, no hemotympanum or drainage NECK: Normal inspection; c-collar in place; no tracheal deviation; no JVD RESP: Normal breath sounds, no wheezes or crackles; no chest wall tenderness, crepitus, or subcutaneous emphysema: No visible evidence of chest wall trauma: Chest rise symmetric; no respiratory distress HEART: Heart rate and rhythm regular: Carotid, radial, femoral, dorsalis pedis pulses +2 and equal bilaterally; no murmurs ABDOMEN: Soft; nontender. No ecchymosis or visible wounds to abdominal wall; no distention, guarding, rigidity, or rebound; pelvis stable, no pain on compression; rectal tone intact; no blood at urethral meatus MSK: Nontender; normal appearance; no tenderness or step-offs to palpation of thoracic or lumbar spine: No ecchymosis or wounds to upper or lower back NEURO: Alert and oriented; sensation intact and symmetric bilaterally; muscle strength symmetric bilaterally SKIN: Color normal; no rash; warm, dry Procedure Critical Care Time: 40 minutes billable from other separate procedures Medical Decision Making MEDICAL DECISION MAKING Number and Complexity of Problems Differential Diagnosis: Sepsis, acute lower urinary tract infection, pneumonia, closed head injury, cervical spine injury, lumbar spine injury, rib fracture, solid organ injury, electrolyte imbalance MDM Data External documents reviewed: Not applicable My EKG interpretation: Noted in chart if applicable My CT interpretation: Noted in chart if applicable My X-ray interpretation: Noted in chart if applicable My Ultrasound interpretation: Not applicable Decision rules/scores evaluated: Noted in chart if applicable Discussed with: Hospitalist, Dr. Weathers Treatment and Disposition ED Course: Patient was interviewed and examined as per ATLS protocol. Given patient's vital signs, blood cultures were also obtained. Patient was also given Ofirmev of IV piggyback. White blood count 15.5, hemoglobin 12.9, hematocrit 39.3, platelet 295, ANC 13.6, pro time 18.6, INR 1.65, PTT 36.0. Sodium 134, potassium 4.0, chloride 101, CO2 23, BUN 24, creatinine 1.1, glucose 128, calcium 9.9, lactic acid normal at 1.4, magnesium normal at 1.6. Patient was given ceftriaxone [address] scans of the head, cervical spine, chest abdomen pelvis were unremarkable for any acute traumatic injury. CT scans did reveal a left lower lobe pneumonia. Patient was administered Zithromax 500 mg IV piggyback to complete pneumonia care path. The patient was deemed a medical patient and no longer a trauma patient. I discussed the case in its entirety with the admitting hospitalist who is the agreed to admit the patient to the hospital as a medical patient. Patient will be admitted in stable condition. I discussed the results of the workup with the patient and her boyfriend. They are in agreement with the plan of care for admission Shared decision making: I discussed the results of the workup with the patient and her boyfriend. I discussed need for hospital admission. The patient was in agreement with the plan of care. Code status: Not applicable Assessment/Plan 1. Acute respiratory failure with hypoxia (J96.01: Acute respiratory failure with hypoxia) 2. LLL pneumonia (J18.9: Pneumonia, unspecified organism) 3. Urinary tract infection (N39.0: Urinary tract infection, site not specified) 4. Elevated troponin (R77.8: Other specified abnormalities of plasma proteins) 5. Neutrophilic leukocytosis (D72.828: Other elevated white blood cell count) 6. Syncope and collapse (R55: Syncope and collapse) 7. General weakness (R53.1: Weakness) 8. Obese (E66.9: Obesity, unspecified) 9. Chronic systolic congestive heart failure (I50.22: Chronic systolic (congestive) heart failure) 10. Hypertension (I10: Essential (primary) hypertension) 11. Hyperlipidemia (E78.5: Hyperlipidemia, unspecified) 12. Hypothyroidism (E03.9: Hypothyroidism, unspecified) 13. History of breast cancer (Z85.3: Personal history of malignant neoplasm of breast) 14. Paroxysmal atrial fibrillation (I48.0: Paroxysmal atrial fibrillation) 15. Presence of automatic cardioverter/defibrillator (AICD) (Z95.810: Presence of automatic (implantable) cardiac defibrillator) 16. On deep vein thrombosis (DVT) prophylaxis (Z79.899: Other termite renewal inspector (current) drug therapy) Orders: acetaminophen + Generic Diluent 100 mL, 1,000 mg = 100 mL, Soln-IV, IV Piggyback, Once, Stop date 10/17/24 9:23:00 EDT, STAT, Start date 10/17/24 9:23:00 EDT, 400 mL/hr, Infuse over 15 minute(s) Sodium Chloride 0.9% intravenous solution, 1,000 mL, Soln-IV, IV, Once, Stop date 10/17/24 9:19:00 EDT, STAT, Start date 10/17/24 9:19:00 EDT, Infuse over 61, minute(s) Sodium Chloride 0.9% intravenous solution 1,000 mL, 1,000 mL, IV, 1,000 mL/hr, STAT, Start date 10/17/24 10:35:00 EDT, 1 hour(s), Total volume (mL): 1,000, 100 kg, 2.2, m2 ABO/Rh ABO/Rh History Check Antibody Screen Basic Metabolic Panel Blood Bank ID# Blood Culture Charcoal Blood Culture Charcoal CBC w/ Auto Diff CT Abdomen/Pelvis w/ Contrast CT Chest w/ Contrast CT Head or Brain w/o Contrast CT Spine Cervical w/o Contrast Drug Screen Urine eGFR Ethanol Level Extra SST Tube Hepatic Function Panel Lactic Acid Lipase Level Magnesium Level Myoglobin Oxygen Therapy PT & PTT Pulse Oximetry Continuous Saline Lock Insert Troponin UA with Cult Rflx Urine Culture Medications Administered Given Sodium Chloride 0.45% IV Silvia 1000 mL 1,000 mL, 1000 mL, IV Sodium Chloride 0.9% IV Silvia 1000 mL 1,000 mL, 1000 mL, IV [id number] [F] 500 mg + NS250 [F] 250 mL, IV Piggyback [id number] [F] 2000 mg + Sodium Chloride 0.9% IV Silvia 50 mL Minibag Plus [F] 50 mL, IV Piggyback GenDil 100 mL + [id number] [F] 1000 mg, IV Piggyback NS 1000 ml Bolus, 1000 mL, IV Disposition Plan Patient Discharge Condition Stable Discharge Disposition Admit to the hospital Discharge Prescription List Prescriptions No active prescription medications Follow-up No qualifying data available Attestation Patient seen and evaluated by the physician anatomic pathology assistant. Attending physician was present in the emergency department and supervised care. This visit was performed by both the physician and an APC. I performed all aspects of the MDM as documented. This report was transcribed using voice recognition software. Every effort was made to ensure accuracy, however, inadvertently computerized property and casualty insurance agent mistakes may be present. Appropriate healthcare PPE was used in evaluating this patient. The patient was placed in a mask. The healthcare provider was wearing mask, gloves, and utilizing proper hand hygiene. All equipment was properly cleansed. I performed a substantive part of the MDM during the patient???s E/M visit. I personally made or approved the documented management plan and acknowledge its risk of complications. (Independent Interpretation) My (EKG/X-Ray/US/CT as applicable) interpretation as above. (Discussion) Management/test interpretation discussed with APC. Problem List/Past Medical History Ongoing Asymptomatic microscopic hematuria Gout Renal cyst Historical Congestive heart failure GERD - Gastro-esophageal reflux disease Hyperlipidemia Hypertension Hypothyroid Procedure/Surgical History Mastectomy. Medications Inpatient acetaminophen 325 mg Tab, 650 mg= 2 tab(s), Oral, q6hr, PRN Al hydroxide/Mg hydroxide/simethicone 200 mg-200 mg-20 mg/5 mL oral suspension, 30 mL, Oral, q6hr, PRN allopurinol 100 mg Tab, 100 mg= 1 tab(s), Oral, Daily Ambien 5 mg Tab, 5 mg= 1 tab(s), Oral, Bedtime, PRN azithromycin additive + Sodium Chloride 0.9% intravenous solution 250 mL Benadryl 25 mg Cap, 25 mg= 1 cap(s), Oral, q6hr, PRN calcium 500 mg tablets, 500 mg= 1 tab(s), Oral, Daily carvedilol, 6.25 mg= 1 tab(s), Oral, Daily carvedilol, 12.5 mg= 2 tab(s), Oral, Bedtime ceftriaxone additive + Sodium Chloride 0.9% intravenous solution 50 mL DuoNeb 2.5 mg-0.5 mg/3 mL Soln-Inh, 3 mL, Inhalation, QID, PRN gabapentin 100 mg Cap, 400 mg= 4 cap(s), Oral, Bedtime gabapentin 100 mg Cap, 200 mg= 2 cap(s), Oral, BID hydrALAZINE 20 mg/mL Inj, 10 mg= 0.5 mL, IV Push, q6hr, PRN Jardiance 10 mg oral tablet, 10 mg= 1 tab(s), Oral, qAM levothyroxine 50 mcg (0.05 mg) Tab, 50 mcg= 1 tab(s), Oral, Daily magnesium oxide 400 mg Tab, 400 mg= 1 tab(s), Oral, Daily melatonin 3 mg Tab, 3 mg= 1 tab(s), Oral, Bedtime, PRN Milk of Magnesia 8% Susp-Oral, 30 mL, Oral, q6hr, PRN morphine 2 mg/mL Inj, 2 mg= 1 mL, IV Push, q4hr, PRN Pantoprazole [address] Tab, 40 mg= 1 tab(s), Oral, Daily Senokot 8.6 mg Tab, 17.2 mg= 2 tab(s), Oral, BID, PRN simvastatin 40 mg Tab, 40 mg= 1 tab(s), Oral, Once a day (at bedtime) Sodium Chloride 0.45% IV Silvia 1000 mL 1,000 mL, 1000 mL, IV Sodium Chloride 0.9% IV Silvia 1000 mL 1,000 mL, 1000 mL, IV Therapeutic Multiple Vitamins with Minerals Tab, 1 tab(s), Oral, Daily timolol Opth 0.5% Silvia 15 mL, 1 drop(s), Eye-Both, BID Vitamin D3 1000 intl units (25 mcg) Tab, 25 mcg= 1 tab(s), Oral, Daily Xarelto 20 mg oral tablet, 20 mg= 1 tab(s), Oral, Daily Zofran 4 mg/2 mL Injection, 4 mg= 2 mL, IV Push, q6hr, PRN Home acetaminophen 325 mg Tab, 650 mg= 2 tab(s), Oral, q6hr, PRN allopurinol 100 mg Tab, 100 mg= 1 tab(s), Oral, Daily calcium (as carbonate) 600 mg oral tablet, 600 mg= 1 tab(s), Oral, Daily carvedilol 6.25 mg Tab, 12.5 mg= 2 tab(s), Oral, Bedtime carvedilol 6.25 mg Tab, 6.25 mg= 1 tab(s), Oral, Daily Flonase 0.05 mg/inh [place], 0.1 mg= 2 spray(s), Nasal, Daily furosemide 20 mg Tab, See Instructions gabapentin 100 mg Cap, 200 mg= 2 cap(s), Oral, BID gabapentin 100 mg Cap, 400 mg= 4 cap(s), Oral, Bedtime Jardiance 10 mg oral tablet, 10 mg= 1 tab(s), Oral, qAM levothyroxine 50 mcg (0.05 mg) Tab, 50 mcg= 1 tab(s), Oral, Daily losartan 25 mg Tab, 12.5 mg= 0.5 tab(s), Oral, Daily magnesium oxide 500 mg oral tablet, 500 mg= 1 tab(s), Oral, Daily melatonin 3 mg Tab, 3 mg= 1 tab(s), Oral, Bedtime, PRN Multi-Day Plus Minerals, 1 tab(s), Oral, Daily Nexium 20 mg Cap-DR, 20 mg= 1 cap(s), Oral, Daily simvastatin 40 mg Tab, 40 mg= 1 tab(s), Oral, Once a day (at bedtime) spironolactone 25 mg Tab, 12.5 mg= 0.5 tab(s), Oral, Daily Timolol Maleate, Ophthalmic 0.5% preservative-free ophthalmic solution, 1drop, Eye-Both, BID Vitamin D3 2000 intl units oral Tab, 2000 International_Unit= 1 cap(s), Oral, Daily Xarelto 20 mg oral tablet, 20 mg= 1 tab(s), Oral, Daily Allergies Ceclor (Swelling, Rash) Social History Alcohol - Low Risk, 03/29/2018 Substance Abuse - Denies Substance Abuse, 11/04/2017 Tobacco - Denies Tobacco Use, 11/04/2017 Never (less than 100 in lifetime) Tobacco Use:., 10/04/2022 Family History Acute myocardial infarction: Father. Metastatic cancer: Sister. Stroke: Mother. Lab Results WBC: 15.5 E9/L High (10/17/24 09:35:00) RBC: 4.3 E12/L (10/17/24 09:35:00) HGB: 12.9 gm/dL (10/17/24 09:35:00) Hct: 39.3 % (10/17/24 09:35:00) MCV: 91.6 fL (10/17/24 09:35:00) MCH: 30.2 pg (10/17/24 09:35:00) MCHC: 32.9 gm/dL (10/17/24 09:35:00) RDW: 15.1 % High (10/17/24 09:35:00) Platelet: 295 E9/L (10/17/24 09:35:00) MPV: 8 fL (10/17/24 09:35:00) Neutro Auto: 88.2 % High (10/17/24 09:35:00) Lymph Auto: 3.3 % Low (10/17/24 09:35:00) [place] Auto: 8.3 % (10/17/24 09:35:00) Eos Auto: 0 % (10/17/24 09:35:00) Basophil Auto: 0.2 % (10/17/24 09:35:00) Neutro Absolute: 13.6 E9/L High (10/17/24 09:35:00) Lymph Absolute: 0.5 E9/L Low (10/17/24 09:35:00) [place] Absolute: 1.3 E9/L High (10/17/24 09:35:00) Eos Absolute: 0 E9/L (10/17/24 09:35:00) Basophil Absolute: 0 E9/L (10/17/24:35:00) PT: 18.6 second(s) High (10/17/24 09:35:00) INR: 1.65 (10/17/24:35:00) PTT: 36 second(s) (10/17/24:35:00) Glucose Lvl: 128 mg/dL (10/17/24 09:35:00) BUN: 24 mg/dL High (10/17/24:35:00) Creatinine: 1.1 mg/dL (10/17/24:35:00) eGFR: 52 mL/min/1.73 m2 Low (10/17/24 09:35:00) BUN/Creat Ratio: 22 High (10/17/24:35:00) Sodium Lvl: 134 mmol/L Low (10/17/24:35:00) Potassium Lvl: 4 mmol/L (10/17/24 09:35:00) Chloride: 101 mmol/L (10/17/24:35:00) CO2: 23 mmol/L (10/17/24:35:00) AGAP: 14 mEq/L (10/17/24:35:00) Calcium Lvl: 9.9 mg/dL (10/17/24 09:35:00) Alk Phos: 75 Int._Unit/L (10/17/24 09:35:00) ALT: 20 Int._Unit/L (10/17/24 09:35:00) AST: 27 Int._Unit/L (10/17/24 09:35:00) Total Protein: 7.3 gm/dL (10/17/24 09:35:00) Albumin Lvl: 3.9 gm/dL (10/17/24 09:35:00) Globulin: 3.4 gm/dL (10/17/24 09:35:00) A/G Ratio: 1.1 (10/17/24 09:35:00) Bili Total: 1.3 mg/dL High (10/17/24 09:35:00) Bili Direct: 0.3 mg/dL (10/17/24 09:35:00) Bili Indirect: 1 mg/dL High (10/17/24 09:35:00) Lipase Lvl: 9 unit/L Low (10/17/24 09:35:00) Lactic Acid Lvl: 1.4 mmol/L (10/17/24 09:35:00) Magnesium: 1.6 mg/dL (10/17/24 09:35:00) Myoglobin: 466 ng/mL High (10/17/24 09:35:00) Troponin HS: 54.9 pg/mL Critical (10/17/24 15:47:00) U Amph Scr: NEGATIVE (10/17/24 11:34:00) U Christelle Scr: NEGATIVE (10/17/24 11:34:00) U Benzodia Scr: NEGATIVE (10/17/24 11:34:00) U Cannab Scr: NEGATIVE (10/17/24 11:34:00) U Cocaine Scr: NEGATIVE (10/17/24 11:34:00) U Opiate Scr: NEGATIVE (10/17/24 11:34:00) U PCP Scr: NEGATIVE (10/17/24 11:34:00) U Fentanyl: NEGATIVE (10/17/24 11:34:00) Ethanol Lvl: <10 (10/17/24 09:35:00) UA Spec Desc: Clean Catch (10/17/24 11:34:00) UA Color: Yellow (10/17/24 11:34:00) UA Clarity: Turbid Abnormal (10/17/24 11:34:00) UA Spec Grav: >1.050 (10/17/24 11:34:00) UA pH: 5.5 (10/17/24 11:34:00) UA Protein: 2+ Abnormal (10/17/24 11:34:00) UA Glucose: 4+ Abnormal (10/17/24 11:34:00) UA Ketones: 1+ Abnormal (10/17/24 11:34:00) UA Bili: Negat (10/17/24 11:34:00) UA Blood: 2+ Abnormal (10/17/24 11:34:00) UA Nitrite: Negat (10/17/24 11:34:00) UA Urobilinogen: Negat (10/17/24 11:34:00) UA Leuk Est: 250 Fam/uL Abnormal (10/17/24 11:34:00) UA RBC: 21-30 Abnormal (10/17/24 11:34:00) UA Squam Epithelial: 9-10 (10/17/24 11:34:00) UA Renal Epi: 0-2 Abnormal (10/17/24 11:34:00) UA WBC: 16-25 Abnormal (10/17/24 11:34:00) UA Bacteria: 1+ Abnormal (10/17/24 11:34:00) UA Mucous: Trace (10/17/24 11:34:00) UA Transitional Epithelial: 0-2 (10/17/24 11:34:00) Rapid COVID Ag: Not Detected (10/17/24 14:47:00) Rapid COV Int NEG Ctl: Pass (10/17/24 14:47:00) Rapid COV Int POS Ctl: Pass (10/17/24 14:47:00) ABO/Rh: A POS (10/17/24 09:35:00) ABSC Gel Interp: Negative (10/17/24 09:35:00) Adenovirus: Not Detected (10/17/24 14:47:00) B. holmesii: Not Detected (10/17/24 14:47:00) B. parapertussis/bronchiseptica: Not Detected (10/17/24 14:47:00) B. pertussis: Not Detected (10/17/24 14:47:00) Human Metapneumovirus: Not Detected (10/17/24 14:47:00) Influenza A: Not Detected (10/17/24 14:47:00) Influenza A (subtype H1): Not Detected (10/17/24 14:47:00) Influenza A (subtype H3): Not Detected (10/17/24 14:47:00) Influenza B: Not Detected (10/17/24 14:47:00) Parainfluenza 1: Not Detected (10/17/24 14:47:00) Parainfluenza 2: Not Detected (10/17/24 14:47:00) Parainfluenza 3: Not Detected (10/17/24 14:47:00) Parainfluenza 4: Not Detected (10/17/24 14:47:00) Rhinovirus: Not Detected (10/17/24 14:47:00) RSV A: Not Detected (10/17/24 14:47:00) RSV B: Not Detected (10/17/24 14:47:00) Diagnostic Results CT Abdomen/Pelvis w/ Contrast 10/17/24 11:18:[address] chest report. Ordering Provider: Indy Vaqsuez Signed By: Jose Francisco Pendleton DO CT Chest w/ Contrast 10/17/24 11:18:10 IMPRESSION: NO ACUTE POSTTRAUMATIC ABNORMALITY OF THE CHEST, ABDOMEN, OR PELVIS. LEFT LOWER LOBE CONSOLIDATION MAY REPRESENT ATELECTASIS BUT IS MOST CONCERNING FOR PNEUMONIA. SMALL LEFT AND TRACE RIGHT PLEURAL EFFUSIONS. CHRONIC STABLE FINDINGS DETAILED. EXAM: CT chest abdomen pelvis with contrast including reconstructed images of the thoracic and lumbar spine. History: Back pain. Recent fall. Technique: Multiple contiguous axial images were obtained of the chest, abdomen, and pelvis from the thoracic inlet through the ischial tuberosities with contrast. Multiplanar reformats were obtained. Delayed images were obtained of the abdomen and pelvis Reconstructed images of the thoracic and lumbar spine performed. Unless otherwise stated, incidental findings identified in this report do not require routine follow-up imaging. Comparison: CT of the chest abdomen pelvis 03/25/2022 Findings: CHEST: Visualized portion of the thyroid gland is within normal limits. No axillary, mediastinal, or hilar lymphadenopathy. Post surgical changes of right mastectomy. No thoracic aortic aneurysm or dissection. Heart size is mildly enlarged. No significant pericardial effusion. No coronary artery calcifications noted. Cardiac pacemaker is present. Esophagus is within normal limits. No pulmonary nodule or mass. Moderate left lower lobe consolidation. Small left and trace right pleural effusions. No pneumothorax. No acute osseous abnormality. CT THORACIC SPINE: No acute fracture or malalignment. Decreased bone mineralization. Chronic multilevel compression deformities do not appear significantly changed. Degenerative changes of the thoracic spine. ABDOMEN/PELVIS: Postsurgical changes of cholecystectomy. The liver, spleen, stomach, pancreas, and right adrenal gland are within normal limits. Stable nonspecific left adrenal nodule measuring approximately 1.2 cm. The kidneys enhance uniformly. Mild left renal atrophy again identified. Stable 1.4 cm simple left renal cyst. Previously seen 5 mm increased density nodule seen on prior examination is not as well visualized on this examination. No urinary tract calculi or hydronephrosis. Urinary bladder is well distended. The uterus is present. Abdominal aorta is nonaneurysmal. No retroperitoneal or abdominal/pelvic lymphadenopathy. No small bowel obstruction. Colonic diverticuli are identified. No overt colonic mass or pericolonic inflammation. Appendix is within normal limits. No free fluid or free air. No acute osseous abnormality. CT LUMBAR SPINE: No acute fracture or malalignment. Decreased bone mineralization. Multilevel degenerative changes. Multilevel Schmorl???s nodes. All CT scans at this facility use dose modulation, iterative reconstruction, and/or weight based dosing when appropriate to reduce radiation dose to as low as reasonably achievable. Technical Comments: GFR (mL/min/1/73m2) trauma Contrast: Isovue 300 Contrast amount in ml???s: 130.00 Ordering Provider: Indy Vasquez Signed By: Jose Francisco Pendleton DO CT Head or Brain w/o Contrast 10/17/24 10:45:49 IMPRESSION: No acute intracranial process. HISTORY: Weakness. Fever. Possible head injury. TECHNIQUE: Serial axial images without IV contrast were obtained from the vertex to the foramen magnum, with sagittal and coronal reconstructions. All CT scans at this facility use dose modulation, iterative reconstruction, and/or weight based dosing when appropriate to reduce radiation dose to as low as reasonably achievable. COMPARISON: 11/04/2017. RESULT: Acute change: No evidence of an acute infarct or other acute parenchymal process. Hemorrhage: No evidence of acute intracranial hemorrhage. Mass Lesion / Mass Effect: There is no evidence of an intracranial mass or extraaxial fluid collection. No significant mass effect. Chronic change: None significant via CT. Parenchyma: There is no significant volume loss for age. Ventricles: The ventricles are within normal limits of size and configuration for age. Paranasal sinuses and skull base: Areas of mild mucosal thickening. Otherwise visualized paranasal sinuses clear. Small amount of fluid within the right mastoid air cells. The skull base is unremarkable. Soft tissues unremarkable. Ordering Provider: Indy Vasquez Signed By: Jose Aguilar MD. CT Spine Cervical w/o Contrast 10/17/24 10:49:09 IMPRESSION: No acute fracture or traumatic malalignment in the cervical spine. Chronic appearing deformity of C2. HISTORY: Neck pain. TECHNIQUE: CT of the cervical spine without IV contrast. Spiral, high resolution axial images were obtained from the skull base to the cervicothoracic junction with sagittal and coronal planar reconstructions. All CT scans at this facility use dose modulation, iterative reconstruction, and/or weight based dosing when appropriate to reduce radiation dose to as low as reasonably achievable. Unless otherwise stated, incidental findings in this report do not require further routine follow-up imaging. COMPARISON: None. RESULT: Counting reference: Craniocervical junction. Alignment/osseous structures: Chronic appearing deformity involving C2 with small amount of chronic appearing bony retropulsion or retrolisthesis of C2 on C3. No traumatic malalignment. No evidence for acute fracture. Underlying decreased bone mineral density. No destructive osseous lesions. Craniocervical junction: Maintained with degenerative changes. Cervical soft tissues: Carotid calcifications. No acute findings. Canal and foramina, degenerative changes: Mild to moderate canal narrowing at C2-C3 secondary to the chronic deformity of C2. Otherwise multilevel degenerative changes, especially advanced in the lower cervical spine. Ordering Provider: Indy Vasquez Signed By: Jose Aguilar MD EKG Results EC10/17/24: ELECTRONIC VENTRICULAR PACEMAKER ABNORMAL RHYTHM ECG Signed By: Franky RICE Ike 10/17/2024 09:41:51 Result Comment: Electronical ly Signed By: Indy Vasquez PA-C\.br\Date and Time Signed: 10/17/24 20:29 EDT\.br\Electronically Co-Signed By: Ike Wilkins MD\.br\Date and Time Co-Signed: 10/27/24 07:19 EDT XR SHOULDER COMPLETE RIGHT Observed: 7:33 PM Status: F Source: [facility] Exam Date/Time: 10/17/2024 19:52 EDT Reason for Exam: Fall Report IMPRESSION: No acute osseous findings. Other findings as discussed. EXAMINATION/TECHNIQUE: XR Shoulder Complete Right HISTORY: Fall with right shoulder pain. COMPARISON: CT chest 10/17/2024. RESULT: Some limitations from positioning. No distinct acute displaced fracture about the right shoulder. No dislocation. At least mild to moderate degenerative changes of the glenohumeral joint. Chronic appearing densities near the humeral head, could represent joint bodies, chondrocalcinosis, or calcific tendinosis. Moderate degenerative changes of the acromioclavicular joint. Narrowing of the acromiohumeral interval, suggestive of chronic rotator cuff arthropathy/tearing. Surgical clips right axillary region. Visualized lung grossly unchanged. Degenerative changes in the spine. No other significant abnormality. Ordering Provider: Lory WEATHERS FINAL REPORT Dictated: 10/18/2024 9:07 am Jose Aguilar MD Signed (Electronic Signature): 10/18/2024 9:07 am Signed by: Jose Aguilar MD Transcribed by: MICHAEL Technologist: BOAZ CT HEAD OR BRAIN W/O CONTRAST Observed: 10/17/2024 7:02 PM Status: F Source: [facility] Exam Date/Time: 10/17/2024 19:45 EDT Reason for Exam: Other (please specify) Report IMPRESSION: No acute intracranial process. HISTORY: Unwitnessed fall. TECHNIQUE: Serial axial images without IV contrast were obtained from the vertex to the foramen magnum, with sagittal and coronal reconstructions. All CT scans at this facility use dose modulation, iterative reconstruction, and/or weight based dosing when appropriate to reduce radiation dose to as low as reasonably achievable. COMPARISON: CT on 10/17/2024. RESULT: Acute change: No evidence of an acute infarct or other acute parenchymal process. Hemorrhage: No evidence of acute intracranial hemorrhage. Mass Lesion / Mass Effect: There is no evidence of an intracranial mass or extraaxial fluid collection. No significant mass effect. Chronic change: None significant via CT. Parenchyma: There is no significant volume loss for age. Ventricles: The ventricles are within normal limits of size and configuration for age. Paranasal sinuses and skull base: Areas of mild mucosal thickening. Otherwise visualized paranasal sinuses clear. Trace fluid mastoid air cells. The skull base is unremarkable. Soft tissues unremarkable. Ordering Provider: Lory WEATHERS FINAL REPORT Dictated: 10/18/2024 8:40 am Jose Aguilar MD. Signed (Electronic Signature): 10/18/2024 8:40 am Signed by: Jose Aguilar MD Transcribed by: MICHAEL Technologist: SHMUEL PROGRESS NOTE-PHYSICIAN Observed: 2024 6:44 PM Status: F Source: [facility] Progress Note-Physician I was notified by the RN that patient fell out of her bed trying to reach her table. She landed on her right shoulder and hit her head on the ground. Patient complains of only right shoulder pain. She denies loss of consciousness. When I examined the patient???pain is markedly improved and down to 2/10. She is able to raise her right upper extremity by herself without assistance. Vital signs were stable except for low-grade fever. Patient was helped to the bed. We ordered stat x-ray of the right shoulder/arm and CT head since patient is on Xarelto. Result Comment: Electronical ly Signed By: Lory WEATHERS MD\.br\Date and Time Signed: 10/17/24 18:46 EDT INTERDISCIPLINARY NOTE - PT Observed: 4:42 PM Status: F Source: [facility] Interdisciplinary Note - PT Initial PT eval completed. 6 Clicks AM-PAC 02/21. Pt with significant weakness, balance deficits, transfer deficits this date. Pt requiring 2 person assist for safety. Pending progress, recommend HH PT vs SNF. Will see daily. INTERDISCIPLINARY NOTE - PITO E SUPERINTENDENT PIPELINES Observed: 10/17/2024 4:07 PM Status: F Source: [facility] Interdisciplinary Note - Pito e [employer]er CRM to room 309 Patient is awake, alert and oriented. Patient is from home. Patient PLOF is independent in self care with no DME use. Patient verified her PCP and insurance. Patient is an inpatient. IMM completed in ED. Patient came in with a Fall. Patient admitted with LLL PNA , Syncope, elevated troponin, Leukocytosis, elevated Troponin. Patient is on oxygen and wears none at home. Patient is pending PT recs. She was having some weakness at home. She is hoping to improve and be able to DC home with out needs. Patient was provided CRM contact, white board updated. CRM following DC date TBD DC plan TBD pending PT Result Comment: Electronical ly Signed By: Ann Dow\.br\Date and Time Signed: 10/17/24 16:11 EDT TROPONIN 6 HR. Collected: 5 3:47 PM Status: F Source: [facility] TYPE CODE TESTS RESULT OUT OF RANGE REFERENCE UNITS LAB [id number](LOINC) Troponin HS 54.90 Abnormal 10.10-27.10 pg/mL Result Comment: Critical Res ult Verified by Repeat Analysis Critical Result I_TnIHS:54.9 Called to and read back by: CRISTHIAN SMITH at: 10/17/2024 16:44:24 by:JACKIE The 95% CI (Confidence Interval) PPV (Positive Predictive Value) for myocardial infarction in females is 38 pg/mL, in males 51 pg/mL. The results should be used in conjunction with clinical conditions of myocardial infarction. (Access High Sensitivity Troponin I Instructions For Use, Andry [place], November 2017) Performed By: #### [id number] #### [facility] [address] [place] [address] HISTORY AND PHYSICAL Observed: 5 2:51 PM Status: F Source: [facility] History and Physical Basic Information Admit Date/Time:10/17/2024 11:39 Chief Complaint weakness, passing out at home History of Present Illness 79-year-old female with history of chronic systolic congestive heart failure status post AICD, paroxysmal atrial fibrillation, hypertension, hyperlipidemia, chronic hyponatremia, hypothyroidism, glaucoma, gout, GERD, obesity, right kidney nodule, history of breast cancer status post radical mastectomy presented with complaints of fever, chills, generalized weakness of several days duration and falling out today. According to the patient she was in her usual state of health until several days ago when she developed generalized body weakness associated with fever, chills, body aches and pains. Today however she got up to use the restroom and fell. She was too weak to get up and her boyfriend helped her and she was up to the emergency room. She denies striking her head. She also has been complaining of urinary incontinence in the past few days. In the emergency room she was found to have a fever, leukocytosis low pulse ox and left lower lobe pneumonia and was referred for admission. She is being admitted with acute respiratory failure, syncope secondary to left lower lobe pneumonia, elevated troponin, leukocytosis, elevated troponin Review of Systems Constitutional: moderate fever, moderate chills, no sweats, severe weakness Skin: no Jaundice, no rash, no lesions, nopetechiae ENMT: no ear pain, no sore throat, no congestion, no hoarseness Respiratory: no shortness of breath, no cough, no orthopnea, no wheezing Cardiovascular: no chest pain, no palpitations, no edema Gastrointestinal: no nausea, no vomiting, no diarrhea, no GI bleeding Genitourinary: no dysuria, no hematuria, no discharge, no pain Musculoskeletal: no back pain, no trauma Neurologic: no headache, no dizziness, no numbness, severe weakness Psychiatric: no sleeping problems, no irritability, no mood swings/depression. Heme/Lymph: no bleeding tendency, no bruising tendency, no petechiae, no swollen nodes Allergy/Immunologic: no seasonal allergies, no food allergies, no recurrent infections, no impaired immunity Additional ROS info: Except as noted in the above Review of Systems and in the History of Present Illness all other systems have been reviewed and are negative or noncontributory. Scoring Hernandez Fall Risk Score: 70 High (10/17/24) Physical Exam Vitals & Measurements T: 37.6 ???C(Oral) TMIN: 37.6 ???C(Oral) TMAX: 39 ???C(Oral) HR: 71(Monitored) RR: 23 BP: 135/70 SpO2: 100% HT: 175.26 cm WT: 100.3 kg General: alert, no acute distress, on nasal cannula oxygen. Skin: warm, dry Head: no trauma, normocephalic Neck: Trachea midline, no adenopathy, no tenderness Eye: normal conjunctiva, sclera clear ENMT: TM's clear, oral mucosa moist, no pharyngeal erythema or exudate Cardiovascular: regular rate and rhythm, normal peripheral perfusion Respiratory: Lungs CTA, respirations non labored Chest wall: no deformity. Status post right mastectomy Gastrointestinal: soft, non distended, no tenderness, no guarding. Obese. Bowel sounds intact. Back: No tenderness, Normal ROM, Normal alignment. Extremities: no deformity, no trauma, no edema. Neurological: oriented x 4, LOC appropriate for age, CN II-XII intact, motor strength equal & normal bilaterally, sensation equal & normal bilaterally, speech normal Psychiatric: cooperative, affect appropriate for age, normal judgement, normal psychiatric thoughts. Lab Results WBC: 15.5 E9/L High (10/17/24 09:35:00) RBC: 4.3 E12/L (10/17/24 09:35:00) HGB: 12.9 gm/dL (10/17/24 09:35:00) Hct: 39.3 % (10/17/24 09:35:00) MCV: 91.6 fL (10/17/24 09:35:00) MCH: 30.2 pg (10/17/24 09:35:00) MCHC: 32.9 gm/dL (10/17/24 09:35:00) RDW: 15.1 % High (10/17/24 09:35:00) Platelet: 295 E9/L (10/17/24 09:35:00) MPV: 8 fL (10/17/24 09:35:00) Neutro Auto: 88.2 % High (10/17/24 09:35:00) Lymph Auto: 3.3 % Low (10/17/24 09:35:00) [place] Auto: 8.3 % (10/17/24 09:35:00) Eos Auto: 0 % (10/17/24 09:35:00) Basophil Auto: 0.2 % (10/17/24 09:35:00) Neutro Absolute: 13.6 E9/L High (10/17/24 09:35:00) Lymph Absolute: 0.5 E9/L Low (10/17/24 09:35:00) [place] Absolute: 1.3 E9/L High (10/17/24 09:35:00) Eos Absolute: 0 E9/L (10/17/24 09:35:00) Basophil Absolute: 0 E9/L (10/17/24 09:35:00) PT: 18.6 second(s) High (10/17/24 09:35:00) INR: 1.65 (10/17/24 09:35:00) PTT: 36 second(s) (10/17/24:35:00) Glucose Lvl: 128 mg/dL (10/17/24 09:35:00) BUN: 24 mg/dL High (10/17/24:35:00) Creatinine: 1.1 mg/dL (10/17/24:35:00) eGFR: 52 mL/min/1.73 m2 Low (10/17/24 09:35:00) BUN/Creat Ratio: 22 High (10/17/24 09:35:00) Sodium Lvl: 134 mmol/L Low (10/17/24:35:00) Potassium Lvl: 4 mmol/L (10/17/24 09:35:00) Chloride: 101 mmol/L (10/17/24:35:00) CO2: 23 mmol/L (10/17/24:35:00) AGAP: 14 mEq/L (10/17/24:35:00) Calcium Lvl: 9.9 mg/dL (10/17/24 09:35:00) Alk Phos: 75 Int._Unit/L (10/17/24 09:35:00) ALT: 20 Int._Unit/L (10/17/24 09:35:00) AST: 27 Int._Unit/L (10/17/24 09:35:00) Total Protein: 7.3 gm/dL (10/17/24 09:35:00) Albumin Lvl: 3.9 gm/dL (10/17/24 09:35:00) Globulin: 3.4 gm/dL (10/17/24 09:35:00) A/G Ratio: 1.1 (10/17/24 09:35:00) Bili Total: 1.3 mg/dL High (10/17/24 09:35:00) Bili Direct: 0.3 mg/dL (10/17/24 09:35:00) Bili Indirect: 1 mg/dL High (10/17/24 09:35:00) Lipase Lvl: 9 unit/L Low (10/17/24 09:35:00) Lactic Acid Lvl: 1.4 mmol/L (10/17/24 09:35:00) Magnesium: 1.6 mg/dL (10/17/24 09:35:00) Myoglobin: 466 ng/mL High (10/17/24 09:35:00) Troponin HS: 50.5 pg/mL Critical (10/17/24 09:35:00) U Amph Scr: NEGATIVE (10/17/24 11:34:00) U Christelle Scr: NEGATIVE (10/17/24 11:34:00) U Benzodia Scr: NEGATIVE (10/17/24 11:34:00) U Cannab Scr: NEGATIVE (10/17/24 11:34:00) U Cocaine Scr: NEGATIVE (10/17/24 11:34:00) U Opiate Scr: NEGATIVE (10/17/24 11:34:00) U PCP Scr: NEGATIVE (10/17/24 11:34:00) U Fentanyl: NEGATIVE (10/17/24 11:34:00) Ethanol Lvl: <10 (10/17/24 09:35:00) UA Spec Desc: Clean Catch (10/17/24 11:34:00) UA Color: Yellow (10/17/24 11:34:00) UA Clarity: Turbid Abnormal (10/17/24 11:34:00) UA Spec Grav: >1.050 (10/17/24 11:34:00) UA pH: 5.5 (10/17/24 11:34:00) UA Protein: 2+ Abnormal (10/17/24 11:34:00) UA Glucose: 4+ Abnormal (10/17/24 11:34:00) UA Ketones: 1+ Abnormal (10/17/24 11:34:00) UA Bili: Negat (10/17/24 11:34:00) UA Blood: 2+ Abnormal (10/17/24 11:34:00) UA Nitrite: Negat (10/17/24 11:34:00) UA Urobilinogen: Negat (10/17/24 11:34:00) UA Leuk Est: 250 Fam/uL Abnormal (10/17/24 11:34:00) UA RBC: 21-30 Abnormal (10/17/24 11:34:00) UA Squam Epithelial: 9-10 (10/17/24 11:34:00) UA Renal Epi: 0-2 Abnormal (10/17/24 11:34:00) UA WBC: 16-25 Abnormal (10/17/24 11:34:00) UA Bacteria: 1+ Abnormal (10/17/24 11:34:00) UA Mucous: Trace (10/17/24 11:34:00) UA Transitional Epithelial: 0-2 (10/17/24 11:34:00) ABO/Rh: A POS (10/17/24 09:35:00) ABSC Gel Interp: Negative (10/17/24 09:35:00) Diagnostic Results (10/17/2024 10:[address] Chest w/ Contrast) * Final Report * Reason For Exam CHEST TRAUMA, MOD-SEVERE;Trauma POWERSCRIBE REPORT IMPRESSION: NO ACUTE POSTTRAUMATIC ABNORMALITY OF THE CHEST, ABDOMEN, OR PELVIS. LEFT LOWER LOBE CONSOLIDATION MAY REPRESENT ATELECTASIS BUT IS MOST CONCERNING FOR PNEUMONIA. SMALL LEFT AND TRACE RIGHT PLEURAL EFFUSIONS. CHRONIC STABLE FINDINGS DETAILED. [1] (10/17/2024 10:[address] Spine Cervical w/o Contrast) * Final Report * Reason For Exam NECK TRAUMA, DANGEROUS INJURY MECHANISM;Trauma POWERSCRIBE REPORT IMPRESSION: No acute fracture or traumatic malalignment in the cervical spine. Chronic appearing deformity of C2. [2] (10/17/2024 10:[address] Head or Brain w/o Contrast) * Final Report * Reason For Exam HEAD TRAUMA, MOD-SEVERE;Other (please specify) POWERSCRIBE REPORT IMPRESSION: No acute intracranial process. HISTORY: Weakness. Fever. Possible head injury. TECHNIQUE: Serial axial images without IV contrast were obtained from the vertex to the foramen magnum, with sagittal and coronal reconstructions. All CT scans at this facility use dose modulation, iterative reconstruction, and/or weight based dosing when appropriate to reduce radiation dose to as low as reasonably achievable. COMPARISON: 11/04/2017. RESULT: [3] (10/17/2024 10:[address] Head or Brain w/o Contrast) * Final Report * Reason For Exam HEAD TRAUMA, MOD-SEVERE;Other (please specify) POWERSCRIBE REPORT IMPRESSION: No acute intracranial process. HISTORY: Weakness. Fever. Possible head injury. [4] EKG analyzed by me: Electronic paced rhythm. Rate of 70 bpm. Assessment/Plan 79-year-old female with history of chronic systolic congestive heart failure status post AICD, paroxysmal atrial fibrillation, hypertension, hyperlipidemia, chronic hyponatremia, hypothyroidism, glaucoma, gout, GERD, obesity, right kidney nodule, history of breast cancer status post radical mastectomy presented with complaints of fever, chills, urinary incontinence with urgency of several days duration and passing out today and is being admitted with acute respiratory failure with hypoxia, syncope secondary to left lower lobe pneumonia, urinary tract infection, elevated troponin, leukocytosis, 1. Acute respiratory failure with hypoxia (J96.01: Acute respiratory failure with hypoxia) Acute respiratory failure with hypoxia???secondary to left lower lobe pneumonia with bilateral pleural effusion. Admit to regular medical floor. Treating underlying disease process. Nebulizer treatments as needed. 2. LLL pneumonia (J18.9: Pneumonia, unspecified organism) Left lower lobe pneumonia with mild pleural effusion. Started patient on ceftriaxone, Zithromax, scheduled and as needed nebulizer treatments, Sputum cultures. 3. Urinary tract infection (N39.0: Urinary tract infection, site not specified) Started patient on IV ceftriaxone pending final urine culture result. 4. Elevated troponin (R77.8: Other specified abnormalities of plasma proteins) Secondary to demand ischemia from above We will repeat troponin and if rising we will obtain echocardiogram. 5. Neutrophilic leukocytosis (D72.828: Other elevated white blood cell count) Secondary to above infection. Follow cultures. Repeat CBC in AM. 6. Syncope and collapse (R55: Syncope and collapse) Secondary to above pneumonia. Ordered: Physical Therapy Evaluate Patient, Develop a Plan of Care and Implement Plan 7. General weakness (R53.1: Weakness) Secondary to generalized debility. Physical therapy evaluation. 8. Obese (E66.9: Obesity, unspecified) Recommend therapeutic lifestyle modification changes. 9. Chronic systolic congestive heart failure (I50.22: Chronic systolic (congestive) heart failure) Clinically stable. Diuretics temporarily suspended while on IV fluid. 10. Hypertension (I10: Essential (primary) hypertension) Antihypertensives temporarily on hold due to above infectious process. 11. Hyperlipidemia (E78.5: Hyperlipidemia, unspecified) On Lipitor. 12. Hypothyroidism (E03.9: Hypothyroidism, unspecified) On Synthroid. 13. History of breast cancer (Z85.3: Personal history of malignant neoplasm of breast) Status post right mastectomy. 14. Paroxysmal atrial fibrillation (I48.0: Paroxysmal atrial fibrillation) Status post pacemaker placement. On Xarelto. 15. Presence of automatic cardioverter/defibrillator (AICD) (Z95.810: Presence of automatic (implantable) cardiac defibrillator) Supportive care. 16. 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 CODE STATUS: Full code. Disposition: The patient will be admitted under inpatient status and will require greater than 2 midnight hospital stay for the treatment of above acute respiratory failure with hypoxia secondary to left lower lobe pneumonia with small effusion, leukocytosis, syncope, generalized weakness. I discussed the diagnosis and plan of care with the patient at the bedside. High Level of MDM based on addressing above issues. This documentation was transcribed using voice recognition software. Several attempts were made to ensure accuracy. However inadvertent computerized property and casualty insurance agent errors may be present. Lory Weathers. Hospitalist. Orders: acetaminophen, 650 mg = 2 tab(s), Tab, Oral, q6hr PRN Pain, Routine, Start date 10/17/24 14:40:00 EDT, 10/17/24 14:40:00 EDT Al hydroxide/Mg hydroxide/simethicone, 30 mL, Susp-Oral, Oral, q6hr PRN Indigestion, Routine, Start date 10/17/24 14:40:00 EDT albuterol-ipratropium, 3 mL, Soln-Inh, Inhalation, QID PRN Shortness of breath or wheezing, Routine, Start date 10/17/24 14:40:00 EDT azithromycin + Sodium Chloride 0.9% intravenous solution 250 mL, 500 mg = 1 EA, IV Piggyback, Daily, Routine, Start date 10/18/24 9:00:00 EDT, 250 mL/hr, Infuse over 60 minute(s), 10/17/24 14:40:00 EDT ceftriaxone + Sodium Chloride 0.9% intravenous solution 50 mL, 1,000 mg = 1 EA, IV Piggyback, Daily, Routine, Start date 10/18/24 9:00:00 EDT, 100 mL/hr, Infuse over 30 minute(s), 10/17/24 14:40:00 EDT diphenhydrAMINE, 25 mg = 1 cap(s), Cap, Oral, q6hr PRN Itching, Routine, Start date 10/17/24 14:40:00 EDT, 10/17/24 14:40:00 EDT hydrALAZINE, 10 mg = 0.5 mL, Injection, IV Push, q6hr PRN Other (see comment), Routine, Start date 10/17/24 14:40:00 EDT, 10/17/24 14:40:00 EDT magnesium hydroxide, 30 mL, Susp-Oral, Oral, q6hr PRN Constipation, Routine, Start date 10/17/24 14:40:00 EDT morphine, 2 mg = 1 mL, Injection, IV Push, q4hr PRN Pain for 5 day(s), Stop date 10/22/24 14:39:00 EDT, Routine, Start date 10/17/24 14:40:00 EDT, 10/17/24 14:40:00 EDT ondansetron, 4 mg = 2 mL, Injection, IV Push, q6hr PRN Nausea, Routine, Start date 10/17/24 14:40:00 EDT, 10/17/24 14:40:00 EDT senna, 17.2 mg = 2 tab(s), Tab, Oral, BID PRN Other (see comment), Routine, Start date 10/17/24 14:40:00 EDT, 10/17/24 14:40:00 EDT Sodium Chloride 0.45% intravenous solution 1,000 mL, 1,000 mL, IV, 75 mL/hr, for 1 dose(s), Stop date 10/18/24 4:00:00 EDT, Routine, Start date 10/17/24 14:43:00 EDT, 13.3 hour(s), Total volume (mL): 1,000, 100 kg, 2.2, m2 zolpidem, 5 mg = 1 tab(s), Tab, Oral, Bedtime PRN Sleep, Routine, Start date 10/17/24 14:40:00 EDT, 10/17/24 14:40:00 EDT Ambulate with Assistance Basic Metabolic Panel Cardiac Diet Cardiac Monitoring CBC w/ Auto Diff Oxygen Protocol Pulse Oximetry Rapid [place] [place] Respiratory Panel by PCR Resuscitation Status - Full Sputum Culture Troponin 6 Hr. Vital Signs Weight Problem List/Past Medical History Ongoing Asymptomatic microscopic hematuria Gout Renal cyst Historical Congestive heart failure GERD - Gastro-esophageal reflux disease Hyperlipidemia Hypertension Hypothyroid Procedure/Surgical History Mastectomy. Medications Inpatient acetaminophen 325 mg Tab, 650 mg= 2 tab(s), Oral, q6hr, PRN Al hydroxide/Mg hydroxide/simethicone 200 mg-200 mg-20 mg/5 mL oral suspension, 30 mL, Oral, q6hr, PRN Ambien 5 mg Tab, 5 mg= 1 tab(s), Oral, Bedtime, PRN azithromycin additive + Sodium Chloride 0.9% intravenous solution 250 mL azithromycin additive + Sodium Chloride 0.9% intravenous solution 250 mL Benadryl 25 mg Cap, 25 mg= 1 cap(s), Oral, q6hr, PRN ceftriaxone additive + Sodium Chloride 0.9% intravenous solution 50 mL ceftriaxone additive + Sodium Chloride 0.9% intravenous solution 50 mL DuoNeb 2.5 mg-0.5 mg/3 mL Soln-Inh, 3 mL, Inhalation, QID, PRN hydrALAZINE 20 mg/mL Inj, 10 mg= 0.5 mL, IV Push, q6hr, PRN Milk of Magnesia 8% Susp-Oral, 30 mL, Oral, q6hr, PRN morphine 2 mg/mL Inj, 2 mg= 1 mL, IV Push, q4hr, PRN Senokot 8.6 mg Tab, 17.2 mg= 2 tab(s), Oral, BID, PRN Sodium Chloride 0.45% IV Silvia 1000 mL 1,000 mL, 1000 mL, IV Sodium Chloride 0.9% IV Silvia 1000 mL 1,000 mL, 1000 mL, IV Zofran 4 mg/2 mL Injection, 4 mg= 2 mL, IV Push, q6hr, PRN Home acetaminophen 325 mg Tab, 650 mg= 2 tab(s), Oral, q6hr, PRN allopurinol 100 mg Tab, 100 mg= 1 tab(s), Oral, Daily calcium (as carbonate) 600 mg oral tablet, 600 mg= 1 tab(s), Oral, Daily carvedilol 12.5 mg Tab, 25 mg= 2 tab(s), Oral, Bedtime carvedilol 12.5 mg Tab, 12.5 mg= 1 tab(s), Oral, Daily Flonase 0.05 mg/inh [place], 0.1 mg= 2 spray(s), Nasal, Daily furosemide 20 mg Tab, See Instructions gabapentin 100 mg Cap, 200 mg= 2 cap(s), Oral, BID gabapentin 100 mg Cap, 400 mg= 4 cap(s), Oral, Bedtime Jardiance 10 mg oral tablet, 10 mg= 1 tab(s), Oral, qAM levothyroxine 50 mcg (0.05 mg) Tab, 50 mcg= 1 tab(s), Oral, Daily losartan 25 mg Tab, 12.5 mg= 0.5 tab(s), Oral, Daily magnesium oxide 500 mg oral tablet, 500 mg= 1 tab(s), Oral, Daily melatonin 3 mg Tab, 3 mg= 1 tab(s), Oral, Bedtime, PRN Multi-Day Plus Minerals, 1 tab(s), Oral, Daily Nexium 20 mg Cap-DR, 20 mg= 1 cap(s), Oral, Daily simvastatin 40 mg Tab, 40 mg= 1 tab(s), Oral, Once a day (at bedtime) spironolactone 25 mg Tab, 12.5 mg= 0.5 tab(s), Oral, Daily Timolol Maleate, Ophthalmic 0.5% preservative-free ophthalmic solution, 1drop, Eye-Both, BID Vitamin D3 2000 intl units oral Tab, 2000 International_Unit= 1 cap(s), Oral, Daily Xarelto 20 mg oral tablet, 20 mg= 1 tab(s), Oral, Daily Allergies Ceclor (Swelling, Rash) Social History Alcohol - Low Risk, 03/29/2018 Substance Abuse - Denies Substance Abuse, 11/04/2017 Tobacco - Denies Tobacco Use, 11/04/2017 Never (less than 100 in lifetime) Tobacco Use:., 10/04/2022 Family History Acute myocardial infarction: Father. Metastatic cancer: Sister. Stroke: Mother. Immunizations Vaccine Date Status Comments influenza virus vaccine, inactivated 02/10/2022 Recorded SARS-CoV-2 (COVID-19) mRNA-1273 vaccine 02/28/2021 Recorded influenza virus vaccine, inactivated 01/22/2021 Recorded SARS-CoV-2 (COVID-19) mRNA-1273 vaccine 07/23/2020 Recorded SARS-CoV-2 (COVID-19) mRNA-1273 vaccine 06/27/2020 Recorded 2022-04-19: [id number] influenza virus vaccine, inactivated 02/27/2019 Recorded pneumococcal 23-valent vaccine 08/17/2018 Recorded influenza virus vaccine, inactivated 02/13/2018 Recorded zoster vaccine, inactivated 11/30/2017 Recorded zoster vaccine, inactivated 08/15/2017 Recorded influenza virus vaccine, inactivated 02/07/2017 Recorded pneumococcal 13-valent vaccine 08/09/2016 Recorded influenza virus vaccine, inactivated 02/08/2016 Recorded influenza virus vaccine, inactivated 01/13/2015 Recorded pneumococcal 13-valent vaccine 08/15/2014 Recorded influenza virus vaccine, inactivated 01/28/2014 Recorded influenza virus vaccine, inactivated 01/22/2013 Recorded Td(adult) unspecified formulation 04/13/2012 Recorded influenza virus vaccine, inactivated 02/15/2000 Recorded influenza virus vaccine, inactivated 04/12/1999 Recorded [1] CT Chest w/ Contrast; Jose Francisco Pendleton DO 10/17/2024 10:25 EDT [2] CT Spine Cervical w/o Contrast; Jose Aguilar MD 10/17/2024 10:16 EDT [3] CT Head or Brain w/o Contrast; Jose Aguilar MD 10/17/2024 10:16 EDT [4] CT Head or Brain w/o Contrast; Jose Aguilar MD 10/17/2024 10:16 EDT Result Comment: Electronical ly Signed By: JASIEL RICE, Lory\.br\Date and Time Signed: 10/17/24 14:52 EDT HISTORY AND PHYSICAL Observed: 2:51 PM Status: C Source: [facility] History and Physical Basic Information Admit Date/Time:10/17/2024 11:39 Chief Complaint weakness, passing out at home History of Present Illness 79-year-old female with history of chronic systolic congestive heart failure status post AICD, paroxysmal atrial fibrillation, hypertension, hyperlipidemia, chronic hyponatremia, hypothyroidism, glaucoma, gout, GERD, obesity, right kidney nodule, history of breast cancer status post radical mastectomy presented with complaints of fever, chills, generalized weakness of several days duration and falling out today. According to the patient she was in her usual state of health until several days ago when she developed generalized body weakness associated with fever, chills, body aches and pains. Today however she got up to use the restroom and fell. She was too weak to get up and her boyfriend helped her and she was up to the emergency room. She denies striking her head. She also has been complaining of urinary incontinence in the past few days. In the emergency room she was found to have a fever, leukocytosis low pulse ox and left lower lobe pneumonia and was referred for admission. She is being admitted with acute respiratory failure, syncope secondary to left lower lobe pneumonia, elevated troponin, leukocytosis, elevated troponin Review of Systems Constitutional: moderate fever, moderate chills, no sweats, severe weakness Skin: no Jaundice, no rash, no lesions, nopetechiae ENMT: no ear pain, no sore throat, no congestion, no hoarseness Respiratory: no shortness of breath, no cough, no orthopnea, no wheezing Cardiovascular: no chest pain, no palpitations, no edema Gastrointestinal: no nausea, no vomiting, no diarrhea, no GI bleeding Genitourinary: no dysuria, no hematuria, no discharge, no pain Musculoskeletal: no back pain, no trauma Neurologic: no headache, no dizziness, no numbness, severe weakness Psychiatric: no sleeping problems, no irritability, no mood swings/depression. Heme/Lymph: no bleeding tendency, no bruising tendency, no petechiae, no swollen nodes Allergy/Immunologic: no seasonal allergies, no food allergies, no recurrent infections, no impaired immunity Additional ROS info: Except as noted in the above Review of Systems and in the History of Present Illness all other systems have been reviewed and are negative or noncontributory. Scoring Hernandez Fall Risk Score: 70 High (10/17/24) Physical Exam Vitals & Measurements T: 37.6 ???C(Oral) TMIN: 37.6 ???C(Oral) TMAX: 39 ???C(Oral) HR: 71(Monitored) RR: 23 BP: 135/70 SpO2: 100% HT: 175.26 cm WT: 100.3 kg General: alert, no acute distress, on nasal cannula oxygen. Skin: warm, dry Head: no trauma, normocephalic Neck: Trachea midline, no adenopathy, no tenderness Eye: normal conjunctiva, sclera clear ENMT: TM's clear, oral mucosa moist, no pharyngeal erythema or exudate Cardiovascular: regular rate and rhythm, normal peripheral perfusion Respiratory: Lungs CTA, respirations non labored Chest wall: no deformity. Status post right mastectomy Gastrointestinal: soft, non distended, no tenderness, no guarding. Obese. Bowel sounds intact. Back: No tenderness, Normal ROM, Normal alignment. Extremities: no deformity, no trauma, no edema. Neurological: oriented x 4, LOC appropriate for age, CN II-XII intact, motor strength equal & normal bilaterally, sensation equal & normal bilaterally, speech normal Psychiatric: cooperative, affect appropriate for age, normal judgement, normal psychiatric thoughts. Lab Results WBC: 15.5 E9/L High (10/17/24 09:35:00) RBC: 4.3 E12/L (10/17/24 09:35:00) HGB: 12.9 gm/dL (10/17/24 09:35:00) Hct: 39.3 % (10/17/24 09:35:00) MCV: 91.6 fL (10/17/24:35:00) MCH: 30.2 pg (10/17/24:35:00) MCHC: 32.9 gm/dL (10/17/24 09:35:00) RDW: 15.1 % High (10/17/24 09:35:00) Platelet: 295 E9/L (10/17/24:35:00) MPV: 8 fL (10/17/24:35:00) Neutro Auto: 88.2 % High (10/17/24:35:00) Lymph Auto: 3.3 % Low (10/17/24:35:00) [place] Auto: 8.3 % (10/17/24 09:35:00) Eos Auto: 0 % (10/17/24 09:35:00) Basophil Auto: 0.2 % (10/17/24 09:35:00) Neutro Absolute: 13.6 E9/L High (10/17/24 09:35:00) Lymph Absolute: 0.5 E9/L Low (10/17/24 09:35:00) [place] Absolute: 1.3 E9/L High (10/17/24 09:35:00) Eos Absolute: 0 E9/L (10/17/24 09:35:00) Basophil Absolute: 0 E9/L (10/17/24 09:35:00) PT: 18.6 second(s) High (10/17/24 09:35:00) INR: 1.65 (10/17/24:35:00) PTT: 36 second(s) (10/17/24:35:00) Glucose Lvl: 128 mg/dL (10/17/24 09:35:00) BUN: 24 mg/dL High (10/17/24 09:35:00) Creatinine: 1.1 mg/dL (10/17/24 09:35:00) eGFR: 52 mL/min/1.73 m2 Low (10/17/24:35:00) BUN/Creat Ratio: 22 High (10/17/24 09:35:00) Sodium Lvl: 134 mmol/L Low (10/17/24:35:00) Potassium Lvl: 4 mmol/L (10/17/24 09:35:00) Chloride: 101 mmol/L (10/17/24 09:35:00) CO2: 23 mmol/L (10/17/24:35:00) AGAP: 14 mEq/L (10/17/24:35:00) Calcium Lvl: 9.9 mg/dL (10/17/24 09:35:00) Alk Phos: 75 Int._Unit/L (10/17/24 09:35:00) ALT: 20 Int._Unit/L (10/17/24 09:35:00) AST: 27 Int._Unit/L (10/17/24 09:35:00) Total Protein: 7.3 gm/dL (10/17/24 09:35:00) Albumin Lvl: 3.9 gm/dL (10/17/24 09:35:00) Globulin: 3.4 gm/dL (10/17/24 09:35:00) A/G Ratio: 1.1 (10/17/24 09:35:00) Bili Total: 1.3 mg/dL High (10/17/24 09:35:00) Bili Direct: 0.3 mg/dL (10/17/24 09:35:00) Bili Indirect: 1 mg/dL High (10/17/24 09:35:00) Lipase Lvl: 9 unit/L Low (10/17/24 09:35:00) Lactic Acid Lvl: 1.4 mmol/L (10/17/24 09:35:00) Magnesium: 1.6 mg/dL (10/17/24 09:35:00) Myoglobin: 466 ng/mL High (10/17/24 09:35:00) Troponin HS: 50.5 pg/mL Critical (10/17/24 09:35:00) U Amph Scr: NEGATIVE (10/17/24 11:34:00) U Christelle Scr: NEGATIVE (10/17/24 11:34:00) U Benzodia Scr: NEGATIVE (10/17/24 11:34:00) U Cannab Scr: NEGATIVE (10/17/24 11:34:00) U Cocaine Scr: NEGATIVE (10/17/24 11:34:00) U Opiate Scr: NEGATIVE (10/17/24 11:34:00) U PCP Scr: NEGATIVE (10/17/24 11:34:00) U Fentanyl: NEGATIVE (10/17/24 11:34:00) Ethanol Lvl: <10 (10/17/24 09:35:00) UA Spec Desc: Clean Catch (10/17/24 11:34:00) UA Color: Yellow (10/17/24 11:34:00) UA Clarity: Turbid Abnormal (10/17/24 11:34:00) UA Spec Grav: >1.050 (10/17/24 11:34:00) UA pH: 5.5 (10/17/24 11:34:00) UA Protein: 2+ Abnormal (10/17/24 11:34:00) UA Glucose: 4+ Abnormal (10/17/24 11:34:00) UA Ketones: 1+ Abnormal (10/17/24 11:34:00) UA Bili: Negat (10/17/24 11:34:00) UA Blood: 2+ Abnormal (10/17/24 11:34:00) UA Nitrite: Negat (10/17/24 11:34:00) UA Urobilinogen: Negat (10/17/24 11:34:00) UA Leuk Est: 250 Fam/uL Abnormal (10/17/24 11:34:00) UA RBC: 21-30 Abnormal (10/17/24 11:34:00) UA Squam Epithelial: 9-10 (10/17/24 11:34:00) UA Renal Epi: 0-2 Abnormal (10/17/24 11:34:00) UA WBC: 16-25 Abnormal (10/17/24 11:34:00) UA Bacteria: 1+ Abnormal (10/17/24 11:34:00) UA Mucous: Trace (10/17/24 11:34:00) UA Transitional Epithelial: 0-2 (10/17/24 11:34:00) ABO/Rh: A POS (10/17/24 09:35:00) ABSC Gel Interp: Negative (10/17/24 09:35:00) Diagnostic Results (10/17/2024 10:[address] Chest w/ Contrast) * Final Report * Reason For Exam CHEST TRAUMA, MOD-SEVERE;Trauma POWERSCRIBE REPORT IMPRESSION: NO ACUTE POSTTRAUMATIC ABNORMALITY OF THE CHEST, ABDOMEN, OR PELVIS. LEFT LOWER LOBE CONSOLIDATION MAY REPRESENT ATELECTASIS BUT IS MOST CONCERNING FOR PNEUMONIA. SMALL LEFT AND TRACE RIGHT PLEURAL EFFUSIONS. CHRONIC STABLE FINDINGS DETAILED. [1] (10/17/2024 10:[address] Spine Cervical w/o Contrast) * Final Report * Reason For Exam NECK TRAUMA, DANGEROUS INJURY MECHANISM;Trauma POWERSCRIBE REPORT IMPRESSION: No acute fracture or traumatic malalignment in the cervical spine. Chronic appearing deformity of C2. [2] (10/17/2024 10:[address] Head or Brain w/o Contrast) * Final Report * Reason For Exam HEAD TRAUMA, MOD-SEVERE;Other (please specify) POWERSCRIBE REPORT IMPRESSION: No acute intracranial process. HISTORY: Weakness. Fever. Possible head injury. TECHNIQUE: Serial axial images without IV contrast were obtained from the vertex to the foramen magnum, with sagittal and coronal reconstructions. All CT scans at this facility use dose modulation, iterative reconstruction, and/or weight based dosing when appropriate to reduce radiation dose to as low as reasonably achievable. COMPARISON: 11/04/2017. RESULT: [3] (10/17/2024 10:[address] Head or Brain w/o Contrast) * Final Report * Reason For Exam HEAD TRAUMA, MOD-SEVERE;Other (please specify) POWERSCRIBE REPORT IMPRESSION: No acute intracranial process. HISTORY: Weakness. Fever. Possible head injury. [4] EKG analyzed by me: Electronic paced rhythm. Rate of 70 bpm. Assessment/Plan 79-year-old female with history of chronic systolic congestive heart failure status post AICD, paroxysmal atrial fibrillation, hypertension, hyperlipidemia, chronic hyponatremia, hypothyroidism, glaucoma, gout, GERD, obesity, right kidney nodule, history of breast cancer status post radical mastectomy presented with complaints of fever, chills, urinary incontinence with urgency of several days duration and passing out today and is being admitted with acute respiratory failure with hypoxia, syncope secondary to left lower lobe pneumonia, urinary tract infection, elevated troponin, leukocytosis, 1. Acute respiratory failure with hypoxia (J96.01: Acute respiratory failure with hypoxia) Acute respiratory failure with hypoxia???secondary to left lower lobe pneumonia with bilateral pleural effusion. Admit to regular medical floor. Treating underlying disease process. Nebulizer treatments as needed. 2. LLL pneumonia (J18.9: Pneumonia, unspecified organism) Left lower lobe pneumonia with mild pleural effusion. Started patient on ceftriaxone, Zithromax, scheduled and as needed nebulizer treatments, Sputum cultures. 3. Urinary tract infection (N39.0: Urinary tract infection, site not specified) Started patient on IV ceftriaxone pending final urine culture result. 4. Elevated troponin (R77.8: Other specified abnormalities of plasma proteins) Secondary to demand ischemia from above We will repeat troponin and if rising we will obtain echocardiogram. 5. Neutrophilic leukocytosis (D72.828: Other elevated white blood cell count) Secondary to above infection. Follow cultures. Repeat CBC in AM. 6. Syncope and collapse (R55: Syncope and collapse) Secondary to above pneumonia. Ordered: Physical Therapy Evaluate Patient, Develop a Plan of Care and Implement Plan 7. General weakness (R53.1: Weakness) Secondary to generalized debility. Physical therapy evaluation. 8. Obese (E66.9: Obesity, unspecified) Recommend therapeutic lifestyle modification changes. 9. Chronic systolic congestive heart failure (I50.22: Chronic systolic (congestive) heart failure) Clinically stable. Diuretics temporarily suspended while on IV fluid. 10. Hypertension (I10: Essential (primary) hypertension) Antihypertensives temporarily on hold due to above infectious process. 11. Hyperlipidemia (E78.5: Hyperlipidemia, unspecified) On Lipitor. 12. Hypothyroidism (E03.9: Hypothyroidism, unspecified) On Synthroid. 13. History of breast cancer (Z85.3: Personal history of malignant neoplasm of breast) Status post right mastectomy. 14. Paroxysmal atrial fibrillation (I48.0: Paroxysmal atrial fibrillation) Status post pacemaker placement. On Xarelto. 15. Presence of automatic cardioverter/defibrillator (AICD) (Z95.810: Presence of automatic (implantable) cardiac defibrillator) Supportive care. 16. 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 CODE STATUS: Full code. Disposition: The patient will be admitted under inpatient status and will require greater than 2 midnight hospital stay for the treatment of above acute respiratory failure with hypoxia secondary to left lower lobe pneumonia with small effusion, leukocytosis, syncope, generalized weakness. I discussed the diagnosis and plan of care with the patient at the bedside. High Level of MDM based on addressing above issues. This documentation was transcribed using voice recognition software. Several attempts were made to ensure accuracy. However inadvertent computerized property and casualty insurance agent errors may be present. Lory Weathers. Hospitalist. Orders: acetaminophen, 650 mg = 2 tab(s), Tab, Oral, q6hr PRN Pain, Routine, Start date 10/17/24 14:40:00 EDT, 10/17/24 14:40:00 EDT Al hydroxide/Mg hydroxide/simethicone, 30 mL, Susp-Oral, Oral, q6hr PRN Indigestion, Routine, Start date 10/17/24 14:40:00 EDT albuterol-ipratropium, 3 mL, Soln-Inh, Inhalation, QID PRN Shortness of breath or wheezing, Routine, Start date 10/17/24 14:40:00 EDT azithromycin + Sodium Chloride 0.9% intravenous solution 250 mL, 500 mg = 1 EA, IV Piggyback, Daily, Routine, Start date 10/18/24 9:00:00 EDT, 250 mL/hr, Infuse over 60 minute(s), 10/17/24 14:40:00 EDT ceftriaxone + Sodium Chloride 0.9% intravenous solution 50 mL, 1,000 mg = 1 EA, IV Piggyback, Daily, Routine, Start date 10/18/24 9:00:00 EDT, 100 mL/hr, Infuse over 30 minute(s), 10/17/24 14:40:00 EDT diphenhydrAMINE, 25 mg = 1 cap(s), Cap, Oral, q6hr PRN Itching, Routine, Start date 10/17/24 14:40:00 EDT, 10/17/24 14:40:00 EDT hydrALAZINE, 10 mg = 0.5 mL, Injection, IV Push, q6hr PRN Other (see comment), Routine, Start date 10/17/24 14:40:00 EDT, 10/17/24 14:40:00 EDT magnesium hydroxide, 30 mL, Susp-Oral, Oral, q6hr PRN Constipation, Routine, Start date 10/17/24 14:40:00 EDT morphine, 2 mg = 1 mL, Injection, IV Push, q4hr PRN Pain for 5 day(s), Stop date 10/22/24 14:39:00 EDT, Routine, Start date 10/17/24 14:40:00 EDT, 10/17/24 14:40:00 EDT ondansetron, 4 mg = 2 mL, Injection, IV Push, q6hr PRN Nausea, Routine, Start date 10/17/24 14:40:00 EDT, 10/17/24 14:40:00 EDT senna, 17.2 mg = 2 tab(s), Tab, Oral, BID PRN Other (see comment), Routine, Start date 10/17/24 14:40:00 EDT, 10/17/24 14:40:00 EDT Sodium Chloride 0.45% intravenous solution 1,000 mL, 1,000 mL, IV, 75 mL/hr, for 1 dose(s), Stop date 10/18/24 4:00:00 EDT, Routine, Start date 10/17/24 14:43:00 EDT, 13.3 hour(s), Total volume (mL): 1,000, 100 kg, 2.2, m2 zolpidem, 5 mg = 1 tab(s), Tab, Oral, Bedtime PRN Sleep, Routine, Start date 10/17/24 14:40:00 EDT, 10/17/24 14:40:00 EDT Ambulate with Assistance Basic Metabolic Panel Cardiac Diet Cardiac Monitoring CBC w/ Auto Diff Oxygen Protocol Pulse Oximetry Rapid [place] Antigen [place] Respiratory Panel by PCR Resuscitation Status - Full Sputum Culture Troponin 6 Hr. Vital Signs Weight Problem List/Past Medical History Ongoing Asymptomatic microscopic hematuria Gout Renal cyst Historical Congestive heart failure GERD - Gastro-esophageal reflux disease Hyperlipidemia Hypertension Hypothyroid Procedure/Surgical History Mastectomy. Medications Inpatient acetaminophen 325 mg Tab, 650 mg= 2 tab(s), Oral, q6hr, PRN Al hydroxide/Mg hydroxide/simethicone 200 mg-200 mg-20 mg/5 mL oral suspension, 30 mL, Oral, q6hr, PRN Ambien 5 mg Tab, 5 mg= 1 tab(s), Oral, Bedtime, PRN azithromycin additive + Sodium Chloride 0.9% intravenous solution 250 mL azithromycin additive + Sodium Chloride 0.9% intravenous solution 250 mL Benadryl 25 mg Cap, 25 mg= 1 cap(s), Oral, q6hr, PRN ceftriaxone additive + Sodium Chloride 0.9% intravenous solution 50 mL ceftriaxone additive + Sodium Chloride 0.9% intravenous solution 50 mL DuoNeb 2.5 mg-0.5 mg/3 mL Soln-Inh, 3 mL, Inhalation, QID, PRN hydrALAZINE 20 mg/mL Inj, 10 mg= 0.5 mL, IV Push, q6hr, PRN Milk of Magnesia 8% Susp-Oral, 30 mL, Oral, q6hr, PRN morphine 2 mg/mL Inj, 2 mg= 1 mL, IV Push, q4hr, PRN Senokot 8.6 mg Tab, 17.2 mg= 2 tab(s), Oral, BID, PRN Sodium Chloride 0.45% IV Silvia 1000 mL 1,000 mL, 1000 mL, IV Sodium Chloride 0.9% IV Silvia 1000 mL 1,000 mL, 1000 mL, IV Zofran 4 mg/2 mL Injection, 4 mg= 2 mL, IV Push, q6hr, PRN Home acetaminophen 325 mg Tab, 650 mg= 2 tab(s), Oral, q6hr, PRN allopurinol 100 mg Tab, 100 mg= 1 tab(s), Oral, Daily calcium (as carbonate) 600 mg oral tablet, 600 mg= 1 tab(s), Oral, Daily carvedilol 12.5 mg Tab, 25 mg= 2 tab(s), Oral, Bedtime carvedilol 12.5 mg Tab, 12.5 mg= 1 tab(s), Oral, Daily Flonase 0.05 mg/inh [place], 0.1 mg= 2 spray(s), Nasal, Daily furosemide 20 mg Tab, See Instructions gabapentin 100 mg Cap, 200 mg= 2 cap(s), Oral, BID gabapentin 100 mg Cap, 400 mg= 4 cap(s), Oral, Bedtime Jardiance 10 mg oral tablet, 10 mg= 1 tab(s), Oral, qAM levothyroxine 50 mcg (0.05 mg) Tab, 50 mcg= 1 tab(s), Oral, Daily losartan 25 mg Tab, 12.5 mg= 0.5 tab(s), Oral, Daily magnesium oxide 500 mg oral tablet, 500 mg= 1 tab(s), Oral, Daily melatonin 3 mg Tab, 3 mg= 1 tab(s), Oral, Bedtime, PRN Multi-Day Plus Minerals, 1 tab(s), Oral, Daily Nexium 20 mg Cap-DR, 20 mg= 1 cap(s), Oral, Daily simvastatin 40 mg Tab, 40 mg= 1 tab(s), Oral, Once a day (at bedtime) spironolactone 25 mg Tab, 12.5 mg= 0.5 tab(s), Oral, Daily Timolol Maleate, Ophthalmic 0.5% preservative-free ophthalmic solution, 1drop, Eye-Both, BID Vitamin D3 2000 intl units oral Tab, 2000 International_Unit= 1 cap(s), Oral, Daily Xarelto 20 mg oral tablet, 20 mg= 1 tab(s), Oral, Daily Allergies Ceclor (Swelling, Rash) Social History Alcohol - Low Risk, 03/29/2018 Substance Abuse - Denies Substance Abuse, 11/04/2017 Tobacco - Denies Tobacco Use, 11/04/2017 Never (less than 100 in lifetime) Tobacco Use:., 10/04/2022 Family History Acute myocardial infarction: Father. Metastatic cancer: Sister. Stroke: Mother. Immunizations Vaccine Date Status Comments influenza virus vaccine, inactivated 02/10/2022 Recorded SARS-CoV-2 (COVID-19) mRNA-1273 vaccine 02/28/2021 Recorded influenza virus vaccine, inactivated 01/22/2021 Recorded SARS-CoV-2 (COVID-19) mRNA-1273 vaccine 07/23/2020 Recorded SARS-CoV-2 (COVID-19) mRNA-1273 vaccine 06/27/2020 Recorded 2022-04-19: [id number] influenza virus vaccine, inactivated 02/27/2019 Recorded pneumococcal 23-valent vaccine 08/17/2018 Recorded influenza virus vaccine, inactivated 02/13/2018 Recorded zoster vaccine, inactivated 11/30/2017 Recorded zoster vaccine, inactivated 08/15/2017 Recorded influenza virus vaccine, inactivated 02/07/2017 Recorded pneumococcal 13-valent vaccine 08/09/2016 Recorded influenza virus vaccine, inactivated 02/08/2016 Recorded influenza virus vaccine, inactivated 01/13/2015 Recorded pneumococcal 13-valent vaccine 08/15/2014 Recorded influenza virus vaccine, inactivated 01/28/2014 Recorded influenza virus vaccine, inactivated 01/22/2013 Recorded Td(adult) unspecified formulation 04/13/2012 Recorded influenza virus vaccine, inactivated 02/15/2000 Recorded influenza virus vaccine, inactivated 04/12/1999 Recorded [1] CT Chest w/ Contrast; Jose Francisco Pendleton DO 10/17/2024 10:25 EDT [2] CT Spine Cervical w/o Contrast; Jose Aguilar MD 10/17/2024 10:16 EDT [3] CT Head or Brain w/o Contrast; Jose Aguilar MD 10/17/2024 10:16 EDT [4] CT Head or Brain w/o Contrast; Jose Aguilar MD 10/17/2024 10:16 EDT - Sepsis???secondary to pneumonia and UTI???present on admission. Cautious with IV fluid in this patient with chronic systolic congestive heart failure. Result Comment: Electronical ly Signed By: JASIEL RICE, Danyfo\.br\Date and Time Signed: 10/18/24 11:13 EDT RESPIRATORY PANEL BY PCR Collected: 10/17/2024 2:47 P M Status: F Source: [facility] TYPE CODE TESTS RESULT OUT OF RANGE REFERENCE UNITS LAB CD:[id number] (LOINC) Adenovirus Not Detected Normal Result Comment: Testing was performed using nucleic acid amplification including Influenza A, Influenza A H1, Influenza A H3, Influenza B, RSV A, RSV B, Adenovirus, Human Metapneumovirus, Parainfluenza 1,2,3, and 4, Rhinovirus, Bordetella parapertussis/bronchiseptica, Bordetella holmesii, and Bordetella pertussis. LAB CD:[id number] (LOINC) Human Metapneumovirus Not Detected Normal Result Comment: This test re sult should be correlated with clinical presentations and medical history by a healthcare provider to determine its clinical significance. LAB CD:[id number] (LOINC) Influenza A Not Detected Normal LAB CD:[id number] (LOINC) Influenza A (subtype H1) Not Detected Normal LAB CD:[id number] (LOINC) Influenza A (subtype H3) Not Detected Normal LAB CD:[id number] (LOINC) Influenza B Not Detected Normal LAB CD:[id number] (LOINC) Parainfluenza 1 Not Detected Normal LAB CD:[id number] (LOINC) Parainfluenza 2 Not Detected Normal LAB CD:[id number] (LOINC) Parainfluenza 3 Not Detected Normal LAB CD:[id number] (LOINC) Parainfluenza 4 Not Detected Normal LAB CD:[id number] (LOINC) Rhinovirus Not Detected Normal LAB CD:[id number] (LOINC) RSV A Not Detected Normal LAB CD:[id number] (LOINC) RSV B Not Detected Normal LAB CD:[id number] (LOINC) B. pertussis Not Detected Normal Not Detected LAB CD:[id number] (LOINC) B. parapertussis/bron chiseptica Not Detected Normal Not Detected LAB CD:[id number] (LOINC) B. holmesii Not Detected Normal LAB CD:[id number] (LOINC) Resp Panel Intrl QC Pass Normal Performed By: #### [id number] #### [facility] [address] [place] [address] RAPID COVID ANTIGEN [place] Collected: 0 10/17/2024 2:47 PM Status: F Source: [facility] TYPE CODE TESTS RESULT OUT OF RANGE REFERENCE UNITS LAB CD:[id number]( [facility]) Rapid COVID Ag Not Detected Normal Not Detected Result Comment: The BD Verit or??? System for Rapid Detection of SARS-CoV-2 is [...] be considered in the context of a patient???s recent exposures, history and the presence of [...] laboratories certified under the CLIA, 42 U.S.C. ???263a, that meet requirements to perform moderate, high, or waived complexity tests and at the Point of Care (POC), i.e., in patient care settings operating under a CLIA Certificate of Waiver, Certificate of Compliance, or Certificate of Accreditation. This test has been authorized only for the [...] Section 564(b)(1) of the Act, 21 U.S.C. ??? 360bbb-3(b)(1), unless the authorization is terminated or revoked sooner. LAB CD:[id number]( [facility]) Rapid COV Int POS Ctl Pass Normal LAB CD:[id number]( LOINC) Rapid COV Int NEG Ctl Pass Normal Performed By: #### [id number] #### [facility] [address] [place] [id number] ED PATIENT EDUCATION NOTE Observed: 09/29 1:59 PM Status: F Source: [facility] ED Patient Education Note ED PATIENT SUMMARY Observed: 10/17/2024 1:59 PM Status: F Source: [facility] ED Patient Summary [address] [address] Patient Discharge Instructions Person Information Name: YENNY BESS Age: 79 Years Arrival Date: 10/17/2024 09:08:46 Discharge Diagnosis: 1:Syncope and collapse; 2:LLL pneumonia; 3:Elevated troponin; 4:Neutrophilic leukocytosis Primary Care Physician: RUFINO RICE, [facility] Provider Information Primary Provider: Advanced Roustabout Hand:None The exam and treatment you received in the Emergency Department were for an urgent problem and are not intended as complete care. It is important that you follow up with a doctor, nurse practitioner, or physician???s anatomic pathology assistant for ongoing care. If your symptoms become worse or you do not improve as expected and you are unable to reach your usual health care provider, you should return to the Emergency Department. We are available 24 hours a day. YENNY BESS has been given the following list of patient education materials, prescriptions and follow-up instructions: Follow-up Instructions: In the event that this physician does not participate in your insurance network, please consult with your insurance company to find a nearby participating provider. Patient Education Materials: A MESSAGE TO ALL PATIENTS REGARDING OPIOIDS PRESCRIPTION OPIOIDS: WHAT YOU NEED TO KNOW Prescription opioids can be used to help relieve yynbbjlf-ml-xikxix pain and are often prescribed following a surgery or injury, or for certain health conditions. These medications can be an important part of the treatment but also come with serious risks. It is important to work with your healthcare provider to make sure you are getting the safest, most effective care. WHAT ARE THE RISKS AND SIDE EFFECTS OF OPIOID USE? Prescription opioids carry serious risks of addiction and overdose, especially with prolonged use. An opioid overdose, often marked by slowed breathing, can cause sudden . The use of prescription opioids can have a number of side effects as well, even when taken as directed: ??? Tolerance???meaning you might need to take more of the medication for the same pain relief ??? Physical dependence???meaning you have symptoms of withdrawal when a medication is stopped ??? Increased sensitivity to pain ??? Constipation ??? Nausea, vomiting, and dry mouth ??? Sleepiness and dizziness ??? Confusion ??? Depression ??? Low levels of testosterone that can result in lower sex drive, energy, and strength ??? Itching and sweating RISKS ARE GREATER WITH: ??? History of drug misuse, substance use disorder, or overdose ??? Mental health conditions (such as depression or anxiety) ??? Sleep apnea ??? Older age (65 years and older) ??? Avoid alcohol while taking prescription opioids. Also, unless specifically advised by your health care provider, medications to avoid include: ??? Benzodiazepines (such as Xanax or Valium) ??? Muscle relaxants (such as Soma or Flexeril) ??? Hypnotics (such as Ambien or Lunesta) ??? Other prescription opioids KNOW YOUR OPTIONS Talk to your health care provider about ways to manage your pain that don???t involve prescription opioids. Some of these options may actually work better and have fewer risks and side effects. Options may include: ??? Pain relievers such as acetaminophen, ibuprofen, and naproxen ??? Some medication that are also used for depression or seizures ??? Physical therapy and exercise ??? Cognitive behavioral therapy, a psychological, goal-directed approach, in which patients learn how to modify physical, behavioral, and emotional triggers of pain and stress. IF YOU ARE PRESCRIBED OPIOIDS FOR PAIN: ??? Never take opioids in greater amounts or more often than prescribed. ??? Follow up with your primary health care provider. o Work together to create a plan on how to manage your pain. o Talk about ways to help manage your pain that don???t involve prescription opioids. o Talk about any and all concerns and side effects. ??? Help prevent misuse and abuse o Never sell or share prescription opioids. o Never use another person???s prescription opioids. ??? Store prescription opioids in a secure place and out of reach of others (this may include visitors, children, friends, and family). ??? Safely dispose of unused prescription opioids: Find your community drug take-back program or your pharmacy mail-back program, or flush them down the toilet, following guidance from the Food and Drug Administration (www.fda.gov/Drugs/ResourcesForYou). ??? Visit www.cdc.gov/drugoverdose to learn about the risks of opioids abuse and overdose. ??? If you believe you may be struggling with addiction, tell your health palliative care nurse practitioner and ask for guidance or call [facility]S [employer] Helpline at 3-928-645-JHRR. v Source: US Department of Health and Human Services/Center for Disease Control & Prevention [facility] Medications Given: Medication Dose Route Sodium Chloride 0.9% intravenous solution 1000.00 mL IV Left Arm acetaminophen 1000.00 mg IV Piggyback Left Arm ceftriaxone 2000.00 mg IV Piggyback Left Arm Sodium Chloride 0.9% intravenous solution 1000.00 mL Initial Volume 999.00 mL/hr IV Left Mid Forearm azithromycin 500.00 mg IV Piggyback Left Mid Forearm Medication Information: Medications to Continue with No Changes Other Medications acetaminophen (acetaminophen 325 mg Tab) 2 Tablets By Mouth every 6 hours as needed for pain. albuterol (Pro-Air HFA CFC free 90 mcg/inh MDI) 2 Puffs Inhalation every 4 hours as needed for wheezing. Refills: 0. allopurinol (allopurinol 100 mg Tab) 1 Tablets By Mouth every day. calcium carbonate (calcium (as carbonate) 600 mg oral tablet) 1 Tablets By Mouth every day. carvedilol (carvedilol 12.5 mg Tab) 1 Tablets By Mouth 2 times a day. cholecalciferol (Vitamin D3 2000 intl units oral Tab) 1 Capsules By Mouth every day. esomeprazole (Nexium 20 mg Cap-DR) 1 Capsules By Mouth every day. Refills: 0. fluticasone nasal (Flonase 0.05 mg/inh [place]) 2 Sprays Nasal Inhalation every day. fluticasone/umeclidinium/vilanterol (Trelegy Ellipta 200 mcg-62.5 mcg-25 mcg/inh inhalation powder) fluticasone/umeclidinium/vilanterol (Trelegy Ellipta 200 mcg-62.5 mcg-25 mcg/inh inhalation powder) 1 Puffs Inhalation every day. fluvoxamine (fluvoxamine 100 mg oral tablet) 0.5 Tablets By Mouth 2 times a day. furosemide (furosemide 20 mg Tab) 1 tab daily prn for peripheral edema. gabapentin (gabapentin 100 mg Cap) 1 Capsules By Mouth 3 times a day. levothyroxine (levothyroxine 50 mcg (0.05 mg) Tab) 1 Tablets By Mouth every day. losartan (losartan 25 mg Tab) 1 Tablets By Mouth every day. magnesium oxide (magnesium oxide 500 mg oral tablet) 1 Tablets By Mouth every day. melatonin (melatonin 3 mg Tab) 1 Tablets By Mouth at bedtime as needed Insomnia. multivitamin with minerals (Multi-Day Plus Minerals) 1 Tablets By Mouth every day. ondansetron (Zofran ODT 4 mg Tab-Dis) 1 Tablets By Mouth every 6 hours. Refills: 0. rivaroxaban (Xarelto 20 mg oral tablet) 1 Tablets By Mouth once a day (in the evening). simvastatin (simvastatin 40 mg Tab) 1 Tablets By Mouth once a day (at bedtime). spironolactone (spironolactone 25 mg Tab) 0.5 Tablets By Mouth every day. timolol ophthalmic (timolol ophthalmic 0.5% solution) 1 Drops Right eye every day. Comment: Patient Portal You may access all of your results and other medical record information on our secure patient portal. If you are not signed up for this yet, please contact [employer] at [phone] to get signed up today. COSME Award Nomination The COSME (Diseases Attacking the Immune SYstem) Award is an international recognition program that honors and celebrates the skillful, compassionate care nurses provide every day. Anyone who experiences or observes amazing care being provided by a nurse is encouraged to submit a nomination. To nominate your nurse, use your smart phone to scan the QR code below. You may receive a survey from [employer] asking you to rate your care experience. Your feedback is important and will help us understand what we do well and how we can improve the quality of care we provide to you, your loved ones and our community. It???s an honor to serve you. Thank you for choosing [facility] Patient Education Materials: MARIA ALEJANDRA Mclean SUSAN H , have received the following patient education materials/instructions and have verbalized understanding: Patient Education Materials: Follow-up Instructions: Patient Signature Date Clinician/Nurse Signature Date 10/17/2024 13:59:01 ED CLINICAL SUMMARY Observed: 10/17/2024 1:59 PM Status: F Source: [facility] ED Clinical Summary [place] [address] ED Clinical Summary Person Information Name: YENNY BESS [facility] Age: 79 Years : 1945 Sex: Female Language: Peruvian PCP: RUFINO RICE, TIKA Marital Status: Visit Id: Visit Reason: Dehydration; Back pain; Trauma - major; Fall; Fever > 75 years; Weakness or fatigue; FALL Speciality: Acuity: 2 Enc Type: Inpatient Med Service: Medical Arrival: 10/17/2024 09:08:46 Discharge: LOS: 000 04:50 Checkin: 10/17/2024 09:08:46 Checkout: 10/17/2024 13:58:59 Dispo Type: Admitted as IP to this [facility] EVENTS: Event Name Event Status Request Date/Time Start Date/Time Complete Date/Time Arrive Complete 10/17/2024 09:08:46 10/17/2024 09:08:46 10/17/2024 09:08:46 Document Home Meds Request 10/17/2024 09:08:46 Triage Complete 10/17/2024 09:08:46 10/17/2024 09:14:45 10/17/2024 09:14:45 Bed Assign Complete 10/17/2024 09:08:46 10/17/2024 09:08:46 10/17/2024 09:08:46 Dr Exam Complete 10/17/2024 09:08:46 10/17/2024 09:10:24 10/17/2024 09:10:24 RN Exam Complete 10/17/2024 09:08:46 10/17/2024 09:16:42 10/17/2024 09:16:42 Registration Complete 10/17/2024 09:10:24 10/17/2024 09:50:06 10/17/2024 09:50:06 EKG Complete 10/17/2024 09:13:50 10/17/2024 09:20:49 Fall Risk Request 10/17/2024 09:16:42 Trauma II Request 10/17/2024 09:20:37 NPO Request 10/17/2024 09:22:04 Meds Admin Complete 10/17/2024 09:22:04 10/17/2024 09:27:50 Pending Labs Inlab 10/17/2024 09:22:04 Lab Inlab 10/17/2024 09:22:04 Urine Collect Complete 10/17/2024 09:22:04 10/17/2024 12:22:36 RT Request 10/17/2024 09:22:04 Patient Care Request 10/17/2024 09:22:04 CT Complete 10/17/2024 09:22:04 10/17/2024 09:37:32 10/17/2024 10:25:55 Blood Collect Request 10/17/2024 09:22:04 Meds Admin Complete 10/17/2024 09:23:55 10/17/2024 09:27:51 Meds Admin Request 10/17/2024 09:31:00 Pending Labs Complete 10/17/2024 09:49:16 10/17/2024 09:49:16 10/17/2024 10:18:52 Lab Complete 10/17/2024 09:49:16 10/17/2024 09:49:16 10/17/2024 10:18:52 Reg Complete Request 10/17/2024 09:50:06 Reg Bed Request Complete 10/17/2024 09:50:06 10/17/2024 09:50:06 10/17/2024 09:50:06 Pending Labs Complete 10/17/2024 09:55:20 10/17/2024 09:55:20 10/17/2024 10:20:49 Lab Complete 10/17/2024 09:55:20 10/17/2024 09:55:20 10/17/2024 10:20:49 Possible Sepsis Request 10/17/2024 10:00:35 Meds Admin Request 10/17/2024 10:36:36 Pending Labs Complete 10/17/2024 10:41:45 10/17/2024 10:41:45 10/17/2024 10:41:45 Meds Admin Request 10/17/2024 11:27:32 Admit Request 10/17/2024 11:39:42 Patient Care Request 10/17/2024 11:39:42 Patient Care Complete 10/17/2024 11:39:44 10/17/2024 13:09:40 Patient Care Request 10/17/2024 11:39:44 Patient Care Request 10/17/2024 11:39:44 Patient Care Request 10/17/2024 11:39:44 Medicare Form Complete 10/17/2024 11:39:45 10/17/2024 12:05:00 Patient Care Complete 10/17/2024 11:39:46 10/17/2024 13:09:55 Patient Care Request 10/17/2024 11:39:46 Pending Labs Collected 10/17/2024 12:23:04 10/17/2024 12:23:04 Lab Collected 10/17/2024 12:23:04 10/17/2024 12:23:04 Pending Labs Request 10/17/2024 13:25:26 ADDRESS: [address] [place] [address] [address] [place] [id number] PHYS DOC NOTES: MEDICAL INFORMATION: Prescriptions Given: Medications to Continue with No Changes Other Medications acetaminophen (acetaminophen 325 mg Tab) 2 Tablets By Mouth every 6 hours as needed for pain. albuterol (Pro-Air HFA CFC free 90 mcg/inh MDI) 2 Puffs Inhalation every 4 hours as needed for wheezing. Refills: 0. allopurinol (allopurinol 100 mg Tab) 1 Tablets By Mouth every day. calcium carbonate (calcium (as carbonate) 600 mg oral tablet) 1 Tablets By Mouth every day. carvedilol (carvedilol 12.5 mg Tab) 1 Tablets By Mouth 2 times a day. cholecalciferol (Vitamin D3 2000 intl units oral Tab) 1 Capsules By Mouth every day. esomeprazole (Nexium 20 mg Cap-DR) 1 Capsules By Mouth every day. Refills: 0. fluticasone nasal (Flonase 0.05 mg/inh [place]) 2 Sprays Nasal Inhalation every day. fluticasone/umeclidinium/vilanterol (Trelegy Ellipta 200 mcg-62.5 mcg-25 mcg/inh inhalation powder) fluticasone/umeclidinium/vilanterol (Trelegy Ellipta 200 mcg-62.5 mcg-25 mcg/inh inhalation powder) 1 Puffs Inhalation every day. fluvoxamine (fluvoxamine 100 mg oral tablet) 0.5 Tablets By Mouth 2 times a day. furosemide (furosemide 20 mg Tab) 1 tab daily prn for peripheral edema. gabapentin (gabapentin 100 mg Cap) 1 Capsules By Mouth 3 times a day. levothyroxine (levothyroxine 50 mcg (0.05 mg) Tab) 1 Tablets By Mouth every day. losartan (losartan 25 mg Tab) 1 Tablets By Mouth every day. magnesium oxide (magnesium oxide 500 mg oral tablet) 1 Tablets By Mouth every day. melatonin (melatonin 3 mg Tab) 1 Tablets By Mouth at bedtime as needed Insomnia. multivitamin with minerals (Multi-Day Plus Minerals) 1 Tablets By Mouth every day. ondansetron (Zofran ODT 4 mg Tab-Dis) 1 Tablets By Mouth every 6 hours. Refills: 0. rivaroxaban (Xarelto 20 mg oral tablet) 1 Tablets By Mouth once a day (in the evening). simvastatin (simvastatin 40 mg Tab) 1 Tablets By Mouth once a day (at bedtime). spironolactone (spironolactone 25 mg Tab) 0.5 Tablets By Mouth every day. timolol ophthalmic (timolol ophthalmic 0.5% solution) 1 Drops Right eye every day. PATIENT EDUCATION INFORMATION: Instructions: Follow up: DIAGNOSIS: 1:Syncope and collapse; 2:LLL pneumonia; 3:Elevated troponin; 4:Neutrophilic leukocytosis U DRUG SCREEN Collected: 11:34 AM Status: F Source: [facility] TYPE CODE TESTS RESULT OUT OF RANGE REFERENCE UNITS LAB [id number](LOINC) U Amph Scr NEGATIVE Normal NEGATIVE Result Comment: Negative Cut off: <1000 ng/mL LAB [id number](LOINC) U Christelle Scr NEGATIVE Normal NEGATIVE Result Comment: Negative Cut off: <200 ng/mL LAB [id number](LOINC) U Benzodia Scr NEGATIVE Normal NEGATIVE Result Comment: Negative Cut off: <200 ng/mL LAB [id number](LOINC) U Cannab Scr NEGATIVE Normal NEGATIVE Result Comment: Negative Cut off: <50 ng/mL LAB [id number](LOINC) U Cocaine Scr NEGATIVE Normal NEGATIVE Result Comment: Negative Cut off: <300 ng/mL LAB [id number](LOINC) U Opiate Scr NEGATIVE Normal NEGATIVE Result Comment: Negative Cut off: <300 ng/mL LAB [id number](LOINC) U PCP Scr NEGATIVE Normal NEGATIVE Result Comment: Negative Cut off: <25 ng/mL These drug screen results are to be used for medical (i.e., treatment) purposes only. Unconfirmed drug screening results must not be used for non-medical purposes (e.g., employment testing, legal testing). LAB CD:[id number](L OINC) U Fentanyl NEGATIVE Normal NEGATIVE Result Comment: Negative Cut off: <5 ng/mL These drug screen results are to be used for medical (i.e., treatment) purposes only. Unconfirmed drug screening results must not be used for non-medical purposes (e.g., employment testing, legal testing). Performed By: #### [id number] # ### [facility] [address] [place] [address] UA WITH CULT RFLX Collected: 5 11:34 AM Status: F Source: [facility] TYPE CODE TESTS RESULT OUT OF RANGE REFERENCE UNITS LAB [id number](LOIN C) UA Spec Desc Clean Catch Normal LAB [id number](LOIN C) UA Color Yellow Normal Yellow Result Comment: Microscopic readings are only performed on those samples that meet specific criteria set forth by [facility]. LAB [id number](LOIN C) UA Clarity Turbid Abnormal Clear LAB [id number](LOIN C) UA Spec Grav >1.050 Normal 1.005-1.030 LAB 51211469(LOIN C) UA pH 5.5 Unknown 5.0-9.0 LAB 57300528(LOIN C) UA Protein 2+ Abnormal Negative mg/dL LAB 06482929(LOIN C) UA Glucose 4+ Abnormal Negative mg/dL LAB [id number](LOIN C) UA Ketones 1+ Abnormal Negative mg/dL LAB 64165354(LOIN C) UA Bili Negative Normal Negative mg/dL LAB 43849323(LOIN C) UA Blood 2+ Abnormal Negative LAB 23076125(LOIN C) UA Nitrite Negative Normal Negative mg/dL LAB 00636372(LOIN C) UA Urobilinogen Negative Normal Negative mg/dL LAB [id number](LOIN C) UA Leuk Est 250 Fam/uL Abnormal Negative LAB 59669810(LOIN C) UA WBC 16-25 Abnormal 0-5 LAB [id number](LOIN C) UA RBC 21-30 Abnormal 0-3 CD:[id number] [id number] LAB [id number](LOIN C) UA Squam Epithelial 9-10 Unknown CD:59878 74748 LAB 30598355(LOIN C) UA Renal Epi 0-2 Abnormal CD:58913 64481 LAB [id number](LOIN C) UA Bacteria 1+ Abnormal Trace /HPF LAB [id number](LOIN C) UA Mucous Trace Normal Negative LAB CD:[id number](L OINC) UA Transitional Epithelial 0-2 Normal 0-2 CD:05306 74273 Performed By: #### [id number] #### [facility] [address] [place] [address] C URINE Observed: 10/17/2024 11:34 AM Status: F Source: [facility] Microbiology PROCEDURE: Urine Culture [R1] SOURCE: U CleanCatch BODY SITE: COLLECTED DATE/TIME: 10/17/2024 11:34 EDT RECEIVED DATE/TIME: 10/17/2024 15:03 EDT START DATE/TIME: 10/17/2024 15:04 EDT FREE TEXT SOURCE: Christina ARIZMENDI, Indy Vasquez PA-C, Indy Garcia FINAL REPORTS Final Report [] Verified Date/Time: 10/19/2024 10:12 EDT 25,000 cfu/ml Mixed skin contaminants Performing Locations R1: This test was performed at: [facility], [address] [place] [address], [id number]- , , Performed By: #### [id number] # ### [facility] [address] [place] [address] ABDOMEN/PELVIS W/ CONTRAST Observed: 10/17/2024 9:59 AM Status: F Source: [facility] Exam Date/Time: 10/17/2024 10:25 EDT Reason for Exam: ABDOMINAL TRAUMA;Trauma Report Please see CT chest report. Ordering Provider: Indy Vasquez FINAL REPORT Dictated: 10/17/2024 11:15 am Jose Francisco Pendleton DO Signed (Electronic Signature): 10/17/2024 11:15 am Signed by: Jose Francisco Pendleton DO Transcribed by: MICHAEL Technologist: YURY CT CHEST W/ CONTRAST Observed: 9:59 AM Status: F Source: [facility] Exam Date/Time: 10/17/2024 10:25 EDT Reason for Exam: CHEST TRAUMA, MOD-SEVERE;Trauma Report IMPRESSION: NO ACUTE POSTTRAUMATIC ABNORMALITY OF THE CHEST, ABDOMEN, OR PELVIS. LEFT LOWER LOBE CONSOLIDATION MAY REPRESENT ATELECTASIS BUT IS MOST CONCERNING FOR PNEUMONIA. SMALL LEFT AND TRACE RIGHT PLEURAL EFFUSIONS. CHRONIC STABLE FINDINGS DETAILED. EXAM: CT chest abdomen pelvis with contrast including reconstructed images of the thoracic and lumbar spine. History: Back pain. Recent fall. Technique: Multiple contiguous axial images were obtained of the chest, abdomen, and pelvis from the thoracic inlet through the ischial tuberosities with contrast. Multiplanar reformats were obtained. Delayed images were obtained of the abdomen and pelvis Reconstructed images of the thoracic and lumbar spine performed. Unless otherwise stated, incidental findings identified in this report do not require routine follow-up imaging. Comparison: CT of the chest abdomen pelvis 03/25/2022 Findings: CHEST: Visualized portion of the thyroid gland is within normal limits. No axillary, mediastinal, or hilar lymphadenopathy. Post surgical changes of right mastectomy. No thoracic aortic aneurysm or dissection. Heart size is mildly enlarged. No significant pericardial effusion. No coronary artery calcifications noted. Cardiac pacemaker is present. Esophagus is within normal limits. No pulmonary nodule or mass. Moderate left lower lobe consolidation. Small left and trace right pleural effusions. No pneumothorax. No acute osseous abnormality. CT THORACIC SPINE: No acute fracture or malalignment. Decreased bone mineralization. Chronic multilevel compression deformities do not appear significantly changed. Degenerative changes of Report the thoracic spine. ABDOMEN/PELVIS: Postsurgical changes of cholecystectomy. The liver, spleen, stomach, pancreas, and right adrenal gland are within normal limits. Stable nonspecific left adrenal nodule measuring approximately 1.2 cm. The kidneys enhance uniformly. Mild left renal atrophy again identified. Stable 1.4 cm simple left renal cyst. Previously seen 5 mm increased density nodule seen on prior examination is not as well visualized on this examination. No urinary tract calculi or hydronephrosis. Urinary bladder is well distended. The uterus is present. Abdominal aorta is nonaneurysmal. No retroperitoneal or abdominal/pelvic lymphadenopathy. No small bowel obstruction. Colonic diverticuli are identified. No overt colonic mass or pericolonic inflammation. Appendix is within normal limits. No free fluid or free air. No acute osseous abnormality. CT LUMBAR SPINE: No acute fracture or malalignment. Decreased bone mineralization. Multilevel degenerative changes. Multilevel Schmorl's nodes. All CT scans at this facility use dose modulation, iterative reconstruction, and/or weight based dosing when appropriate to reduce radiation dose to as low as reasonably achievable. Technical Comments: GFR (mL/min/1/73m2) trauma Contrast: Isovue 300 Contrast amount in ml's: 130.00 Ordering Provider: Indy Vasquez FINAL REPORT Dictated: 10/17/2024 11:15 am Jose Francisco Pendleton DO Signed (Electronic Signature): 10/17/2024 11:15 am Signed by: Jose Francisco Pendleton DO Transcribed by: MICHAEL Technologist: YURY CT SPINE CERVICAL W/O CONTRAST Observed: 10/17/2024 9:59 AM Status: F Source: [facility] Exam Date/Time: 10/17/2024 10:16 EDT Reason for Exam: NECK TRAUMA, DANGEROUS INJURY MECHANISM;Trauma Report IMPRESSION: No acute fracture or traumatic malalignment in the cervical spine. Chronic appearing deformity of C2. HISTORY: Neck pain. TECHNIQUE: CT of the cervical spine without IV contrast. Spiral, high resolution axial images were obtained from the skull base to the cervicothoracic junction with sagittal and coronal planar reconstructions. All CT scans at this facility use dose modulation, iterative reconstruction, and/or weight based dosing when appropriate to reduce radiation dose to as low as reasonably achievable. Unless otherwise stated, incidental findings in this report do not require further routine follow-up imaging. COMPARISON: None. RESULT: Counting reference: Craniocervical junction. Alignment/osseous structures: Chronic appearing deformity involving C2 with small amount of chronic appearing bony retropulsion or retrolisthesis of C2 on C3. No traumatic malalignment. No evidence for acute fracture. Underlying decreased bone mineral density. No destructive osseous lesions. Craniocervical junction: Maintained with degenerative changes. Cervical soft tissues: Carotid calcifications. No acute findings. Canal and foramina, degenerative changes: Mild to moderate canal narrowing at C2-C3 secondary to the chronic deformity of C2. Otherwise multilevel degenerative changes, especially advanced in the lower cervical spine. Ordering Provider: Indy Vasquez FINAL REPORT Dictated: 10/17/2024 10:46 am Jose Aguilar MD Signed (Electronic Signature): 10/17/2024 10:46 am Signed by: Jose Aguilar MD Transcribed by: MICHAEL Technologist: YURY CT HEAD OR BRAIN W/O CONTRAST Observed: 10/17/2024 9:59 AM Status: F Source: [facility] Exam Date/Time: 10/17/2024 10:16 EDT Reason for Exam: HEAD TRAUMA, MOD-SEVERE;Other (please specify) Report IMPRESSION: No acute intracranial process. HISTORY: Weakness. Fever. Possible head injury. TECHNIQUE: Serial axial images without IV contrast were obtained from the vertex to the foramen magnum, with sagittal and coronal reconstructions. All CT scans at this facility use dose modulation, iterative reconstruction, and/or weight based dosing when appropriate to reduce radiation dose to as low as reasonably achievable. COMPARISON: 11/04/2017. RESULT: Acute change: No evidence of an acute infarct or other acute parenchymal process. Hemorrhage: No evidence of acute intracranial hemorrhage. Mass Lesion / Mass Effect: There is no evidence of an intracranial mass or extraaxial fluid collection. No significant mass effect. Chronic change: None significant via CT. Parenchyma: There is no significant volume loss for age. Ventricles: The ventricles are within normal limits of size and configuration for age. Paranasal sinuses and skull base: Areas of mild mucosal thickening. Otherwise visualized paranasal sinuses clear. Small amount of fluid within the right mastoid air cells. The skull base is unremarkable. Soft tissues unremarkable. Ordering Provider: Indy Vasquez FINAL REPORT Dictated: 10/17/2024 10:42 am Jose Aguilar MD Signed (Electronic Signature): 10/17/2024 10:42 am Signed by: Jose Aguilar MD Transcribed by: MICHAEL Technologist: YURY Rahman BLOOD CHARCOAL Observed: 10/17/2024 9:40 AM Status: F Source: [facility] Microbiology PROCEDURE: Blood Culture Charcoal [R1] SOURCE: Blood BODY SITE: Hand L COLLECTED DATE/TIME: 10/17/2024 09:40 EDT RECEIVED DATE/TIME: 10/17/2024 09:52 EDT START DATE/TIME: 10/17/2024 09:52 EDT FREE TEXT SOURCE: Christina ARIZMENDI, Indy Vasquez PA-C, Indy Garcia FINAL REPORTS Final Report [] Verified Date/Time: 10/20/2024 14:59 EDT Staphylococcus epidermidis In 1 of 1 blood culture bottles drawn. Isolated from pediatric bottle Preliminary gram stain result of gram positive cocci in clusters Result called to Dr. Weathers by [facility] and results read back for confirmation on 10/18/2024 16:40:01 SUSCEPTIBILITY RESULTS LEGEND: S=Susceptible, N/R=Not Reported, Blank=Data not available, or drug not advisable or tested, I=Intermediate, ESBL=Extended spectrum beta-lactamase, R=Resistant, TFG=Thymidine-dependent strain, PAWAN=Beta-lactamase positive, QUOC=mcg/m;(mg/L), S*=Predicted susceptible interp, R*=Predicted resistant interp Staepi Antibiotic QUOC Dilutn QUOC Interp Amoxicillin/ >4/2 R Clavulanate Ampicillin >8 R Ampicillin/ <=8/4 R Sulbactam Azithromycin <=2 S Cefazolin >16 R Clindamycin <=0.25 S Daptomycin <=1 S Erythromycin <=0.5 S Linezolid <=2 S Oxacillin >2 R Penicillin >8 R Rifampin <=1 S Tetracycline <=4 S Trimethoprim/ <=0.5/9.5 S Sulfa Vancomycin 2 S Performing Locations R1: This test was performed at: [facility], [address] [place] [address], [id number]- , , Performed By: #### [id number] #### [facility] [address] [place] [address] C BLOOD CHARCOAL Observed: 10/17/2024 9:35 AM Status: F Source: [facility] Microbiology PROCEDURE: Blood Culture Charcoal [R1] SOURCE: Blood BODY SITE: Arm L COLLECTED DATE/TIME: 10/17/2024 09:35 EDT RECEIVED DATE/TIME: 10/17/2024 09:52 EDT START DATE/TIME: 10/17/2024 09:52 EDT FREE TEXT SOURCE: Christina ARIZMENDI, Indy Vasquez PA-C, Indy Garcia FINAL REPORTS Final Report [] Verified Date/Time: 10/24/2024 12:00 EDT No growth at 7 days. Performing Locations R1: This test was performed at: [facility], [address] [place] [address], [facility]- , , Performed By: #### [id number] #### [facility] [address] [place] [address] BMP Collected: 10/17/2024 9:35 AM Status: F Source: [facility] TYPE CODE TESTS RESULT OUT OF RANGE REFERENCE UNITS LAB [id number]([facility]) Glucose Lvl 128 Normal 55-199 mg/d L LAB 02274781([facility]) BUN 24 High 5-21 mg/dL LAB 0891134([facility]) Creatinine 1.1 Normal 0.5-1.3 mg/dL LAB 41580894([facility]) BUN/Creat Ratio 22 High 10-20 No Units LAB [id number]([facility]) Calcium Lvl 9.9 Normal 8.9-11.1 mg/ dL LAB 89710710([facility]) Sodium Lvl 134 Low 135-145 mmol/ L LAB 76702640([facility]) Potassium Lvl 4.0 Normal 3.5-5.3 mm ol/L LAB 77645297([facility]) Chloride 101 Normal 101-111 mmol/L LAB 11260621([facility]) CO2 23 Normal 21-31 mmol/L LAB 08553291([facility]) AGAP 14 Normal 6-16 mEq/L Performed By: #### [id number] # ### [facility] [address] [place] [address] PT & PTT Collected: 9:35 AM Status: F Source: [facility] TYPE CODE TESTS RESULT OUT OF RANGE REFERENCE UNITS LAB [id number](LOINC ) PT 18.6 High 9.4-12.5 second(s) Result Comment: 15 days - 4 weeks 1 - 5 months 6 -11 months 1-5 years 6-10 years 11 -17 years Mean: 11.2 (9.5-12.6) Mean: 11.0 (9.7-12.8) Mean: 11.0 (9.8-13.0) Mean: 11.3 (9.9-13.4) Mean: 11.7 (10.0-14.6) Mean: 11.8 (10.0 - 14.1) Pediatric Reference ranges were obtained from a study by antonia Leone al. prepared from 1437 samples obtained at 7 different centers using the same coagulation reagent and instrumentation as [facility]. Currently there are no coagulation studies available worldwide for children to 14 days, and no normal ranges. LAB 90463974(LOINC ) PTT 36.0 Normal 25.1-36.5 second(s) Result Comment: Parameter 15 days - 4 weeks 1 - [...] the same coagulation reagent and instrumentation as [facility]. Currently there are no coagulation studies available worldwide for children to 14 days, and no normal ranges. Heparin therapeutic range (represented by Anti-Factor Xa activity of 0.2 - 0.4 U/mL) corresponds to PTT of 56.6 - 109.0 sec. LAB 37621690(LOINC ) INR 1.65 Unknown Result Comment: INR results are specifically intended to assess patients stabilized on long-term Anticoagulation therapy suggested INR???s ???Less Intensive Anticoagulation??? 2.0 ??? 3.0 Conventional Range 3.0 ??? 4.5 Performed By: #### [id number] #### [facility] [address] [place] [address] LIPASE LEVEL Collected: 5 9:35 AM Status: F Source: [facility] TYPE CODE TESTS RESULT OUT OF RANGE REFERENCE UNITS LAB [id number]([facility]) Lipase Lvl 9 Low 13-58 unit/ L Performed By: #### [id number] # ### [facility] [address] [place] [address] CBC W/ AUTO DIFF Collected: 9:35 AM Status: F Source: [facility] TYPE CODE TESTS RESULT OUT OF RANGE REFERENCE UNITS LAB 91675286(INC) WBC 15.5 High 4.0-11.0 E9/L Result Comment: Peripheral s mear review performed. LAB 30934305(LOINC) RBC 4.3 Normal 4.3-5.9 E12/L LAB 81777073(LOINC) HGB 12.9 Normal 12.0-16.0 gm/dL LAB 08557398(LOINC) Hct 39.3 Normal 34.0-46.0 % LAB 97093031(LOINC) RDW 15.1 High 10.9-14.2 % LAB 68594473(LOINC) MCH 30.2 Normal 27.0-34.0 pg LAB 92912824(LOINC) MCHC 32.9 Normal 31.4-36.0 gm/dL LAB 95396677(LOINC) MCV 91.6 Normal 80.0-100.0 fL LAB 59342770(LOINC) MPV 8.0 Normal 6.4-10.8 fL LAB 01751519(LOINC) Platelet 295.0 Normal 150.0-500.0 E9/ L LAB 09900145(LOINC) Neutro Auto 88.2 High 36.0-75.0 % LAB 16426875(LOINC) Lymph Auto 3.3 Low 14.0-50.0 % LAB 98660227(LOINC) [place] Auto 8.3 Normal 4.0-14.0 % LAB 48589190(LOINC) Eos Auto 0.0 Normal 0.0-8.0 % LAB 62924612(LOINC) Basophil Auto 0.2 Normal 0.0-2.0 % LAB 12616336(LOINC) Neutro Absolute 13.6 High 2.0-7.5 E9/L LAB 66749758(LOINC) Lymph Absolute 0.5 Low 1.0-4.0 E9/L LAB 79790668(LOINC) [place] Absolute 1.3 High 0.2-1.0 E9 /L LAB 29156796(LOINC) Eos Absolute 0.0 Normal 0.0-0.5 E9/ L LAB 76732131(LOINC) Basophil Absolute 0.0 Normal 0.0-0.2 E9/L Performed By: #### [id number] # ### [facility] [address] [place] [address] MYOGLOBIN Collected: 5 9:35 AM Status: F Source: [facility] TYPE CODE TESTS RESULT OUT OF RANGE REFERENCE UNITS LAB 67310412([facility]) Myoglobin 466 High <=69 ng/mL Performed By: #### [id number] # ### [facility] [address] [place] [address] HEP FUNC PANEL Collected: 5 9:35 AM Status: F Source: [facility] TYPE CODE TESTS RESULT OUT OF RANGE REFERENCE UNITS LAB 88933390([facility]) ALT 20 Normal 6-46 Int._Uni t /L LAB 66043444(LOINC) AST 27 Normal 5-43 Int._Uni t /L LAB 85313026(INC) Albumin Lvl 3.9 Normal 3.3-5.0 gm/d L LAB 84201599(INC) Globulin 3.4 Normal 1.4-4.0 gm/dL LAB 87128451(LOINC) A/G Ratio 1.1 Normal 1.1-2.2 LAB 36257523(INC) Alk Phos 75 Normal 21-98 Int._Un it /L LAB 09163119(LOINC) Bili Direct 0.3 Normal 0.0-0.4 mg/d L LAB 31972255(LOINC) Bili Indirect 1.0 High 0.1-0.9 mg /dL LAB 60939649(LOINC) Bili Total 1.3 High 0.0-1.1 mg/dL LAB 44195184(LOINC) Total Protein 7.3 Normal 6.0-7.8 gm /dL Performed By: #### [id number] # ### [facility] [address] [place] [address] MAGNESIUM Collected: 9:35 AM Status: F Source: [facility] TYPE CODE TESTS RESULT OUT OF RANGE REFERENCE UNITS LAB 21215612(LOINC) Magnesium 1.6 Normal 1.3-2.4 mg/dL Performed By: #### [id number] # ### [facility] [address] [place] [address] ETHANOL Collected: 9:35 AM Status: F Source: [facility] TYPE CODE TESTS RESULT OUT OF RANGE REFERENCE UNITS LAB 56644657(INC) Ethanol Lvl <10 Normal <=11 mg/d L Performed By: #### [id number] # ### [facility] [address] [place] [address] TROPONIN Collected: 9:35 AM Status: F Source: [facility] TYPE CODE TESTS RESULT OUT OF RANGE REFERENCE UNITS LAB 02317156(LOINC) Troponin HS 50.50 Abnormal 10.10-27.10 pg/mL Result Comment: Critical Res ult Verified by Repeat Analysis Critical Result I_TnIHS:50.5 Called to and read back by: JENNIFER THOMAS at: 10/17/2024 10:44:22 by:BC Critical Result I_MYO:466 Called to and read back by: JENNIFER THOMAS at: 10/17/2024 10:44:22 by:BC The 95% CI (Confidence Interval) PPV (Positive Predictive Value) for myocardial infarction in females is 38 pg/mL, in males 51 pg/mL. The results should be used in conjunction with clinical conditions of myocardial infarction. (Access High Sensitivity Troponin I Instructions For Use, Andry [place], November 2017) Performed By: #### [id number] # ### [facility] [address] [place] [address] EGFR Collected: 9:35 AM Status: F Source: [facility] TYPE CODE TESTS RESULT OUT OF RANGE REFERENCE UNITS LAB 16856332(LOINC) eGFR 52 Low >=59 mL/min/1 .7 3 m2 Performed By: #### [id number] #### [facility] [address] [place] [address] LACTIC ACID Collected: 10/17/2024 9:35 AM Status: F Source: [facility] TYPE CODE TESTS RESULT OUT OF RANGE REFERENCE UNITS LAB [id number](LOINC) Lactic Acid Lvl 1.4 Normal 0.5-2.2 mmol/L Performed By: #### [id number] # ### [facility] [address] [place] [address] ABO/RH HISTORY CHECK Collected: 10/17/2024 9:35 AM S tatus: F Source: [facility] TYPE CODE TESTS RESULT OUT OF RANGE REFERENCE UNITS LAB [id number](LOINC) ABO/Rh History Check Type verified by second s Normal Performed By: #### [id number] #### [facility] [address] [place] [address] ABO/RH Collected: 9:35 AM Status: F Source: [facility] TYPE CODE TESTS RESULT OUT OF RANGE REFERENCE UNITS LAB [id number](LOINC) ABO/Rh A POS Unknown Performed By: #### [id number] # ### [facility] [address] [place] [address] BLOOD BANK ID# Collected: 9:35 AM Status: F Source: [facility] TYPE CODE TESTS RESULT OUT OF RANGE REFERENCE UNITS LAB [id number](LOINC) BBID# [id number] Unknown Performed By: #### [id number] #### [facility] [address] [place], [place] [id number] ABSC Collected: 10/17/2024 9:35 AM Status: F Source: [facility] TYPE CODE TESTS RESULT OUT OF RANGE REFERENCE UNITS LAB [id number](LOINC) ABSC Gel Interp Negative Normal Performed By: #### [id number] #### [facility] [address] [place] [address] PRE-ARRIVAL NOTE Observed: 10/17/2024 9:09 AM Status: F Source: [facility] Pre-Arrival Note Pre-Arrival Summary Name: en Current Date: 10/17/2024 09:09:20 EDT Gender: Female Date of : Age: 79 Pre-Arrival Type: EMS ETA: 10/17/2024 09:32:00 EDT Primary Care Physician: Presenting Problem: fall Pre-Arrival User: Stephanie Jimenez RN Referring Source: Location: [place] Completion Date/Time: 10/17/2024 09:02:00 [facility] Emergency Department Pre-Hospital Report Form Vital Signs: Pre-Hospital Report: Treatment in Route: Response to Treatment: Misc. Issues: ALLERGIES DATE TYPE / CODE NAME / CODE REACTION SEVERITY SOURCE 02/15/2016 DRUG INGREDI~NON-CBORD /[id number](SNOMED CT) [facility]/[id number](SN ED CT) Ceclor rash~swelling [facility] ENCOUNTERS ADMIT/DISCHARGE ACCOUNT NUMBER ADMITTING ENCOUNTER CLASS LOCATION SOURCE 10/30/2024/10/31/19 [id number] Emergency Building:WE DRoom: 06Bed: 06 [facility] 10/25/2024/10/26/19 [id number] Ambulatory FT Extended CareBuildin g:CD:[id number] [facility] 10/23/2024/10/24/19 [id number] Ambulatory FT Extended CareBuildin g:CD:[id number] [facility] 10/20/2024/10/27/19 [id number] Ambulatory FTMCBuildin g:TCRoom: W750Zcq: 01 [facility] 10/17/2024 [id number] OJUKWU, Mbanefo Inpatient Encounter FTMCBuildin NRoom: Y612Roh: 01 [facility] 10/17/2024/10/21/19 25 [id number] OJUKWU, Mbanefo Inpatient Encounter FTMCBuildin NRoom: D523Faa: 01 [facility] 10/17/2024 [id number] OJUKWU, Mbanefo Inpatient Encounter FTMCBuildin g:FT.EDHOLD Room: 07Bed: A [facility] 10/17/2024 [id number] OJUKWU, Mbanefo Inpatient Encounter FTMCBuildin NRoom: Y072Isg: 01 [facility] 10/17/2024 [id number] OJUKWU, Mbanefo Inpatient Encounter FTMCBuildin NRoom: V290Qnj: 01 [facility] 10/17/2024 [id number] Emergency FTMCBuildin g:EDRoom: ED-07Bed: CD:[id number] [facility] 10/17/2024 [id number] Emergency FTMCBuildin g:EDRoom: ED-07Bed: CD:[id number] [facility] 08/09/2024/08/10/19 25 [id number] Ambulatory Buildin 13 [facility] 08/09/2024/08/10/19 25 [id number] Ambulatory Buildin 13 [facility] 07/03/2024/07/04/19 25 [id number] Ambulatory Buildin 360 [facility] 07/03/2024/07/04/19 25 [id number] Ambulatory Buildin 360 [facility] 07/03/2024/07/04/19 25 [id number] Ambulatory Buildin 360 [facility] 03/19/2024/03/19/20 24 [id number] Ambulatory Building:NO MS N NEURO [facility] 02/01/2024/02/01/20 24 [id number] Ambulatory Buildin 13 [facility] 02/01/2024/02/01/20 24 [id number] Ambulatory Buildin 13 [facility] 01/24/2024/01/24/20 24 [id number] Ambulatory Building:NO MS N NEURO [facility] 01/02/2024/01/02/20 24 [id number] Ambulatory Buildin 13 [facility] 12/26/2023/12/26/19 24 [id number] Ambulatory Building:NO MS N NEURO [facility] EPIC 12/25/2023 [id number] Ambulatory Building:Un known [facility] 12/20/2023/12/20/19 24 [id number] Ambulatory Buildin 360 [facility] 12/20/2023/12/20/19 24 [id number] Ambulatory Buildin 360 [facility] 12/20/2023/12/20/19 24 [id number] Ambulatory Buildin 360 [facility] 11/21/2023/11/21/19 24 [id number] Ambulatory Buildin 13 [facility] PAYERS ENCOUNTER GUARANTOR PAYER SUBSCRIBER SOURCE 10/30/2024 YENNY NGUYỄNB: [place], [place] [address]Apb: () Primary Insurance:MEDICAREPolicy Number: [id number] Date:0363-23-56KW [address] [place] [address]CV: YENNY NGUYỄNB: [id number] [place], [place] [address]Swf: (HP) [facility] 10/30/2024 Secondary Insurance:MEDICAL MUTUALPolicy Number: [id number] Date:1881-48-26FZ [address] [place] [address]QG: YENNY NGUYỄNB: [id number] [place], [place] [address]Shp: (HP) [facility] 10/25/2024 YENNY BARAKATLYDOB: [facility] [address] NTel: ~(4 19 (HP) Primary Insurance:MEDICAREPolicy Number: [id number] Date:8236-90-45MF [address] [address]GH: YENNY AG [facility] 10/25/2024 Secondary Insurance:MEDICAL MUTUALPolicy Number: [id number] Date:2024-10-18 [facility]2024 YENNY Christianson EBLINNEALYDOB: [facility] [address] NTel: ~(4 19 (HP) Primary Insurance:MEDICAREPolicy Number: [id number] Date:5744-91-32KZ [address] [address]NG: [facility] 10/23/2024 Secondary Insurance:MEDICAL MUTUALPolicy Number: [id number] Date:2024-10-18 [facility]ERALD [facility] 10/20/2024 YENNY Christianson EBLINNEALYDOB: [facility] [address] NTel: ~(4 19 (HP) Primary Insurance:MEDICAREPolicy Number: [id number] Date:4749-43-14JU [address] [address]BL: [facility] 10/20/2024 Secondary Insurance:MEDICAL MUTUALPolicy Number: [id number] Date:2024-10-18 YENNY AG [facility] 10/17/2024 YENNY BARAKATLYDOB: [facility] [address] NTel: ~(4 19 (HP) Primary Insurance:MEDICAREPolicy Number: [id number] Date:9187-86-56IY [address] [place] [address]IK: [facility] 10/17/2024 Secondary Insurance:MEDICAL MUTUALPolicy Number: [id number] Date:2024-10-17 [facility] 10/17/2024 YENNY BARAKATLYDOB: [facility] [address] NTel: ~(4 19 (HP) Primary Insurance:MEDICAREPolicy Number: [id number] Date:7175-28-28TU [address] [place] [address]LJ: YENNY Christianson [facility] 10/17/2024 Secondary Insurance:MEDICAL MUTUALPolicy Number: [id number] Date:2024-10-17 [facility]NYEMERALD [facility] 10/17/2024 YENNY BARAKATLYDOB: [facility] [address] NTel: ~(4 19 (HP) Primary Insurance:MEDICAREPolicy Number: [id number] Date:0561-91-21TG [address] [address]BB: [facility] 10/17/2024 Secondary Insurance:MEDICAL MUTUALPolicy Number: [id number] Date:2024-10-17 [facility] 10/17/2024 YENNY BESSDOB: [id number] [facility] [address] NTel: ~(4 19 (HP) Primary Insurance:MEDICAREPolicy Number: [id number] Date:2224-66-18MC [address] [place] [address]CI: [facility] 10/17/2024 Secondary Insurance:MEDICAL MUTUALPolicy Number: [id number] Date:2024-10-17 YENNY AG [facility] 10/17/2024 YENNY BARAKATLYDOB: [id number] [facility] [address] NTel: ~(4 19 (HP) Primary Insurance:MEDICAREPolicy Number: [id number] Date:0365-77-99NO [id number] [place] [address]DE: [facility] 10/17/2024 Secondary Insurance:MEDICAL MUTUALPolicy Number: [id number] Date:2024-10-17 [facility] 10/17/2024 YENNY BARAKATLYDOB: [id number] [facility] [address] NTel: ~(4 19 (HP) Primary Insurance:MEDICAREPolicy Number: [id number] Date:8894-03-02OR [address] [place] [address]RR: [facility] 10/17/2024 Secondary Insurance:MEDICAL MUTUALPolicy Number: [id number] Date:2024-10-17 [facility] 10/17/2024 YENNY BARAKATLYDOB: [id number] [facility] [address] NTel: ~(4 19 (HP) Primary Insurance:MEDICAREPolicy Number: [id number] Date:8886-68-58SR [id number] [place] [address]BD: [facility]/2024 Secondary Insurance:MEDICAL MUTUALPolicy Number: [id number] Date:2024-10-17 YENNY AG [facility] 08/09/2024 YENNY Christianson YUVALLYDOB: [place], [place] [address]Sep: (HP) Primary Insurance:MEDICARE PART A & BPolicy Number: [id number] Date:2012-06-01 YENNY Christianson PRAVEENLINNEALYDOB: [id number] [place], [place] [address]Lrq: (HP) [facility] 08/09/2024 Secondary Insura nce:[facility] TRADITIONALPolicy Number: [id number] Date:2015-05-01 YENNY Christianson PRAVEENLINNEALYDOB: [id number] [place], [place] [address]Kev: (HP) [facility] 08/09/2024 YENNY Christianson YUVALLYDOB: [place], [place] [address]Dnw: (HP) Primary Insurance:MEDICARE PART A & BPolicy Number: [id number] Date:2012-06-01 YENNY Christianson PRAVEENLINNEALYDOB: [id number] [place], [place] [address]Ldt: (HP) [facility] 08/09/2024 Secondary Insura nce:MM TRADITIONALPolicy Number: [id number] Date:2015-05-01 YENNY Christianson EBERLYDOB: [id number] [place], [place] [address]Iwl: (HP) [facility] 07/03/2024 YENNY Christianson PRAVEENERLYDOB: [place], [place] [address]Cvz: (HP) Primary Insurance:MEDICARE PART A & BPolicy Number: [id number] Date:2012-06-01 YENNY Christianson EBERLYDOB: [id number] [place], [place] [address]Miq: (HP) [facility] 07/03/2024 Secondary Insura nce:MM TRADITIONALPolicy Number: [id number] Date:2015-05-01 YENNY Christianson EBERLYDOB: [id number] [place], [place] [address]Qmf: (HP) [facility] 07/03/2024 YENNY Christianson EBERLYDOB: [place], [place] [address]Tyt: (HP) Primary Insurance:MEDICARE PART A & BPolicy Number: [id number] Date:2012-06-01 YENNY Christianson EBERLYDOB: [id number] [place], [place] [address]Dcf: (HP) [facility] 07/03/2024 Secondary Insura nce:[facility] [place] Number: [id number] Date:2015-05-01 YENNY Christianson EBERLYDOB: [id number] [place], [place] [address]Tcy: (HP) [facility] 07/03/2024 YENNY Christianson EBERLYDOB: [place], [place] [address]Cyr: (HP) Primary Insurance:MEDICARE PART A & BPolicy Number: [id number] Date:2012-06-01 YENNY Christianson EBERLYDOB: [id number] [place], [place] [address]Rnu: (HP) [facility] 07/03/2024 Secondary Insura nce:MMO TRADITIONALPolicy Number: [id number] Date:2015-05-01 YENNY Christianson MARIA ALEJANDRADOB: [id number] [place], [place] [address]Mxi: (HP) [facility] 03/19/2024 YENNY Christianson MARIA ALEJANDRADOB: [place], [place] [address]Slk: (HP) Primary Insurance:MEDICAREPolicy Number: [id number] Date:7160-31-40Nwqb Name:Medicare YENNY Christianson DELMAB: [id number] [place] [address] [facility] 03/19/2024 Secondary Insurance:MEDICAL MUTUALPolicy Number: [id number] Date:2021-05-01 YENNY Christianson DELMAB: [id number] [place] [address] [facility] 02/01/2024 YENNY Christianson MARIA ALEJANDRADOB: [place], [place] [address]Wkq: (HP) Primary Insurance:MEDICARE PART A & BPolicy Number: [id number] Date:2012-06-01 YENNY Christianson DELMAB: [id number] [place], [place] [address]Xrd: (HP) [facility] 02/01/2024 Secondary Insura nce:MMO TRADITIONALPolicy Number: [id number] Date:2015-05-01 YENNY Christianson DELMAB: [id number] [place], [place] [address]Jxw: (HP) [facility] 02/01/2024 YENNY Christianson MARIA ALEJANDRADOB: [place], [place] [address]Qpu: (HP) Primary Insurance:MEDICARE PART A & BPolicy Number: [id number] Date:2012-06-01 YENNY Christianson PRAVEENERLYDOB: [id number] [place], [place] [address]Lsd: (HP) [facility] 02/01/2024 Secondary Insura nce:MMO TRADITIONALPolicy Number: [id number] Date:2015-05-01 YENNY Christianson EBERLYDOB: [id number] [place], [place] [address]Zux: (HP) [facility] 01/24/2024 YENNY Christianson PRAVEENERLYDOB: [place] [address]Dpz: (HP) Primary Insurance:MEDICAREPolicy Number: [id number] Date:2827-50-69Oiky Name:Medicare YENNY Christianson YUVALLYDOB: [id number] [place] [address] [facility] 01/24/2024 Secondary Insurance:MEDICAL MUTUALPolicy Number: [id number] Date:2021-05-01 YENNY Christianson YUVALLYDOB: [id number] [place] [address] [facility] 01/02/2024 YENNY H EBERLYDOB: [place], [place] [address]Fpy: (HP) Primary Insurance:MEDICARE PART A & BPolicy Number: [id number] Date:2012-06-01 YENNY Christianson PRAVEENERLYDOB: [id number] [place], [place] [address]Yga: (HP) [facility] 01/02/2024 Secondary Insura nce:MMO TRADITIONALPolicy Number: [id number] Date:2015-05-01 YENNY Christianson DELMAB: [id number] [place], [place] [address]Vtk: (HP) [facility] 12/26/2023 YENNY Christianson DELMAB: [place] [address]Dmy: (HP) Primary Insurance:MEDICAREPolicy Number: [id number] Date:5283-33-38Nrpy Name:Medicare YENNY Christianson DELMAB: [id number] [place] [address] [facility] 12/26/2023 Secondary Insurance:MEDICAL MUTUALPolicy Number: [id number] Date:2021-05-01 YENNY H DELMAB: [id number] [place] [address] [facility] 12/25/2023 YENNY NGUYỄNB: [place], [place] [address]Tzn: (HP) Primary Insurance:MEDICARE PART A & BPolicy Number: [id number] Date:2012-06-01 YENNY Christianson DELMAB: [id number] [place], [place] [address]Qif: (HP) [facility] 12/25/2023 Secondary Insura nce:MMO TRADITIONALPolicy Number: [id number] Date:2015-05-01 YENNY Meghan NGUYỄNB: [id number] [place], [place] [address]Spm: (HP) [facility] 12/20/2023 YENNY NGUYỄNB: [place], [place] [address]Qvs: (HP) Primary Insurance:MEDICARE PART A & BPolicy Number: [id number] Date:2012-06-01 YENNYEMERALD ROBLEDOLEEANNA BESSDOB: [id number] [place], [place] [address]Sse: (HP) [facility] 12/20/2023 Secondary Insura nce:MMO TRADITIONALPolicy Number: [id number] Date:2015-05-01 YENNY BESSDOB: [id number] [place], [place] [address]Plf: (HP) [facility] 12/20/2023 YENNY NGUYỄNB: [place], [place] [address]Pqf: (HP) Primary Insurance:MEDICARE PART A & BPolicy Number: [id number] Date:2012-06-01 YENNY NGUYỄNB: [id number] [place], [place] [address]Kum: (HP) [facility] 12/20/2023 Secondary Insura nce:MMO TRADITIONALPolicy Number: [id number] Date:2015-05-01 YENNY NGUYỄNB: [id number] [place], [place] [address]Aoi: (HP) [facility] 12/20/2023 YENNY NGUYỄNB: [place], [place] [address]Qdo: (HP) Primary Insurance:MEDICARE PART A & BPolicy Number: [id number] Date:2012-06-01 YENNY NGUYỄNB: [id number] [place], [place] [address]Aha: (HP) [facility] 12/20/2023 Secondary Insura nce[place] [place]Policy Number: [id number] Date:2015-05-01 YENNY NGUYỄNB: [id number] [place], [place] [address]Dbl: (HP) [facility] 11/21/2023 YENNY NGUYỄNB: [place], [place] [address]Tds: (HP) Primary Insurance:MEDICARE PART A & BPolicy Number: [id number] Date:2012-06-01 YENNY NGUYỄNB: [id number] [place], [place] [address]Unh: (HP) [facility] 11/21/2023 Secondary Insura nce:[facility] [place]Policy Number: [id number] Date:2015-05-01 YENNY NGUYỄNB: [id number] [place], [place] [address]Mla: (HP) [facility]
[2024-11-04 11:10] LABS: Hematocrit 37.8 % (36.0-48.0); Hemoglobin 12.4 g/dL (12.0-16.0); Immature Granulocytes Abs Auto 0.10 10^3/uL (0.00-0.03); Immature Granulocytes Pct Auto 0.7 % (0.0-0.5); Lymphocytes Absolute Auto 0.8 10^3/uL (1.2-3.8); Mean Corpuscular HGB Conc 32.8 g/dL (29.9-35.2); Mean Corpuscular Hemoglobin 30.6 pg (26.7-34.0); Mean Corpuscular Volume 93.3 fL (81.0-99.0); Platelet Count 410 10^3/uL (150-450); Red Blood Count 4.05 10^6/uL (4.20-5.40); White Blood Count 14.2 10^3/uL (4.0-11.0)
[2024-11-04 11:18] LABS: INR 1.51; Prothrombin Time 15.4 sec (9.0-11.6)
[2024-11-04 11:34] LABS: Anion Gap 12.7; Blood Urea Nitrogen 42.0 mg/dL (7.0-18.0); Calcium 9.8 mg/dL (8.5-10.1); Carbon Dioxide 24.7 mmol/L (21.0-32.0); Chloride 103 mmol/L (98-107); Estimated GFR (African America >60 (>=60 mL/min/1.73m^2); Estimated GFR (Non-African Ame 52 (>=60 mL/min/1.73m^2); Glucose 104 mg/dL (74-106); Potassium 4.4 mmol/L (3.5-5.1); Sodium 136 mmol/L (136-145)
== END 2024-11-04 10:31 | disposition home or self-care (01) ==
PROVIDERS: PCP Internal Medicine; Visit Provider Nurse Practitioner Primary Care
DX: D69.0 Allergic purpura (principal)
CPT/HCPCS: 36415; 80048; 85025; 85610